=== PATIENT | female | born 1935 | race Caucasian/White ===

== ENCOUNTER → 2017-08-09 | Outpatient (CLI) | payer OTHER, MEDICARE ==
[~2017-08-09] MED LIST: IMT100 PO; INDSR80 PO; MECL1TAB42 PO; OMEP40CA41 PO; ZCR80 PO
--- NOTE | 2017-08-09 15:29 | MAMMOGRAPHY REPORT ---
BILATERAL DIGITAL SCREENING MAMMOGRAM WITH CAD: 08/09/2017 CLINICAL HISTORY: Routine screening. Patient has no complaints. TECHNIQUE: Bilateral CC and MLO views were obtained. Current study was also evaluated with a Compute r Aided Detection (CAD) system. COMPARISON: Comparison is made to exams dated: 08/05/2016 mammogram, 08/04/2015 mammogram, 07/30/2013 m ammogram, 07/18/2012 mammogram, 07/06/2011 mammogram, and 06/29/2010 mammogram - [facility] enter. BREAST COMPOSITION: The tissue of both breasts is almost entirely fatty. FINDINGS: There is evidence of prior surgery in the left breast. Benign-appearing rodlike and coarse calcifications bilaterally. No new suspicious mass, architectural distortion or cluster of microcal cifications is seen. IMPRESSION: ACR BI-RADS CATEGORY 1: NEGATIVE There is no mammographic evidence of malignancy. A 1 year screening mammogram is recommended. The pa tient will receive written notification of the results. Approximately 10% of breast cancers are not detected with mammography. A negative mammographic report should not delay biopsy if a clinically suggestive mass is present. Perla Veloz M.D. ay/:08/09/2017 15:17:22 [employer]: Alisha Olivas RT(R)(M), [facility] letter sent: Normal 1/2 BI-RADS Code: ACR BI-RADS Category 1: Negative
== END | disposition home or self-care (01) ==
LOC: C.MAMM 10:57
PROVIDERS: ATTEND Obstetrics & Gynecology
DX: Z12.31 Encounter for screening mammogram for malignant neoplasm of breast (principal)

== ENCOUNTER 2017-10-08 20:59 | Emergency (ER) | payer OTHER, MEDICARE ==
[~2017-10-08] VITALS: Ht 154.9 cm; Wt 57.5 kg
[2017-10-08 21:08] VITALS: Ht 154.9 cm; Wt 57.5 kg
--- NOTE | 2017-10-08 21:33 | EMERGENCY ROOM VISIT NOTE ---
History Report prepared by Octavio: Dante Meade Under the Supervision of: Dr. Lurdes Funes D.O. First contact with patient: 21:13 Chief Complaint: ABDOMINAL PAIN Stated Complaint: ABD PAIN History of Present Illness The patient is an 82 year old female who presents to the Emergency Room with complaints of constant epigastric abdominal pain since this afternoon [employer]. She also complains of back pain. She feels as though she is having an adverse reaction to Mucinex Sinus, which she has been taking for her laryngitis. She notes taking two doses last night and one dose this morning. She notes taking a different type of Mucinex two days ago that focused more on rhinorrhea. She denies any similar symptoms in the past. She notes a persistent cough with pain related to her laryngitis. She denies shortness of breath, nausea, vomiting, diarrhea, constipation, chills, fevers, leg pain or swelling. She rates her pain a 7/10 in severity. She denies any history of abdominal surgeries. She has a history of GERD and notes that she has eaten, but not as usual. she has eaten but not as much as usual Has a his of GERD Source of History: patient Onset: afternoon [employer] Position: abdomen (epigastrium) Symptom Intensity: 7/10 Timing: constant Associated Symptoms: + cough (with pain related to her laryngitis), + abdominal pain, + back pain, No fevers, No chills, No SOB, No nausea, No vomiting, No diarrhea (denies constipation) Note: Denies leg pain or swelling. Review of Systems See HPI for pertinent positives & negatives. A total of 10 systems reviewed and were otherwise negative. Past Medical & Surgical Medical Problems: (1) Gastroparesis (2) Migraine headache (3) Stomach ulcer Family History No pertinent family history obtained. Social History Smoking Status: Never Smoker Alcohol Use: none Drug Use: none Marital Status: Occupation Status: unemployed Current/Historical Medications Scheduled Omeprazole (Prilosec), 40 MG PO DAILY Propranolol HCl (Propranolol HCl ER), 80 MG PO DAILY Simvastatin (Simvastatin), 80 MG PO Q2D Scheduled PRN Sumatriptan Succinate (Imitrex), 100 MG PO UD PRN for Migraine Allergies Coded Allergies: Acetaminophen (Verified Allergy, Mild, 02/07/15) Propoxyphene (Verified Allergy, Mild, 10/08/17) Erythromycin (Verified Allergy, Unknown, 10/08/17) Metronidazole (Verified Allergy, Unknown, ?, 10/08/17) Penicillins (Verified Allergy, Unknown, 10/08/17) Sulfamethoxazole w/Trimethoprim (Verified Allergy, Unknown, RASH, 10/08/17) Codeine (Verified Adverse Reaction, Unknown, SICK TO STOMACH, 10/08/17) Fentanyl (Verified Adverse Reaction, Unknown, SEVERE N&V;DIZZY, 10/08/17) Quinolones (Verified Adverse Reaction, Unknown, N&V, 10/08/17) Physical Exam Vital Signs Date Time Temp Pulse Resp B/P (MAP) Pulse Ox O2 Delivery O2 Flow Rate FiO2 10/08/17 23:08 36.6 58 18 150/89 98 Room Air 10/08/17 21:32 56 10/08/17 21:08 36.4 62 18 193/97 97 Room Air Physical Exam GENERAL: The patient has laryngitis. HEENT: Head - normocephalic and atraumatic Pupils are equal, round, and reactive to light. Extraocular eye muscles are intact, and sclera are anicteric. Nose - moist nasal mucosa without discharge. Mouth - moist buccal mucosa. Oropharynx is nonerythematous and there is no tonsillar exudate or edema noted. Neck: Supple; no JVD, nuchal rigidity, cervical lymphadenopathy. Heart: Regular rate and rhythm. There is a normal S1 and S2 with no murmurs, clicks, or gallops appreciated. Lungs: Clear to auscultation bilaterally with no wheezes, rales, or rhonchi. Abdomen: Soft, nondistended, with good bowel sounds. Epigastric pain with palpation. There are no palpable pulsatile masses or hepatosplenomegaly. There is no guarding, rigidity, or rebound noted. Extremities: No evidence of cyanosis, clubbing, or edema. There are easily palpable peripheral pulses. Skin: warm and dry with good turgor and no rashes. Medical Decision & Procedures Laboratory Results 10/08/17 21:32 Red Blood Count 4.65, Mean Corpuscular Volume 91.6, Mean Corpuscular Hemoglobin 30.3, Mean Corpuscular Hemoglobin Concent 33.1, Mean Platelet Volume 10.0, Neutrophils (%) (Auto) 54.7, Lymphocytes (%) (Auto) 32.6, Monocytes (%) (Auto) 6.9, Eosinophils (%) (Auto) 4.6, Basophils (%) (Auto) 0.6, Neutrophils # (Auto) 4.48, Lymphocytes # (Auto) 2.68, Monocytes # (Auto) 0.57, Eosinophils # (Auto) 0.38, Basophils # (Auto) 0.05 10/08/17 21:32 Test 10/08/17 21:32 White Blood Count 8.21 K/uL (4.8-10.8) Red Blood Count 4.65 M/uL (4.2-5.4) Hemoglobin 14.1 g/dL (12.0-16.0) Hematocrit 42.6 % (37-47) Mean Corpuscular Volume 91.6 fL (80-100) Mean Corpuscular Hemoglobin 30.3 pg (25-34) Mean Corpuscular Hemoglobin Concent 33.1 g/dl (32-36) Platelet Count 251 K/uL (130-400) Mean Platelet Volume 10.0 fL (7.4-10.4) Neutrophils (%) (Auto) 54.7 % Lymphocytes (%) (Auto) 32.6 % Monocytes (%) (Auto) 6.9 % Eosinophils (%) (Auto) 4.6 % Basophils (%) (Auto) 0.6 % Neutrophils # (Auto) 4.48 K/uL (1.4-6.5) Lymphocytes # (Auto) 2.68 K/uL (1.2-3.4) Monocytes # (Auto) 0.57 K/uL (0.11-0.59) Eosinophils # (Auto) 0.38 K/uL (0-0.5) Basophils # (Auto) 0.05 K/uL (0-0.2) RDW Standard Deviation 44.0 fL (36.4-46.3) RDW Coefficient of Variation 13.2 % (11.5-14.5) Immature Granulocyte % (Auto) 0.6 % Immature Granulocyte # (Auto) 0.05 K/uL (0.00-0.02) Anion Gap 8.0 mmol/L (3-11) Est Creatinine Clear Calc Drug Dose 34.3 ml/min Estimated GFR () 57.7 Estimated GFR (Non- 49.8 BUN/Creatinine Ratio 21.2 (10-20) Calcium Level 9.1 mg/dl (8.5-10.1) Total Bilirubin 0.3 mg/dl (0.2-1) Direct Bilirubin 0.1 mg/dl (0-0.2) Aspartate Amino Transf (AST/SGOT) 30 U/L (15-37) Alanine Aminotransferase (ALT/SGPT) 42 U/L (12-78) Alkaline Phosphatase 75 U/L (45-117) Total Creatine Kinase 60 U/L (26-192) Creatine Kinase MB 0.8 ng/ml (0.5-3.6) Creatine Kinase MB Ratio 1.3 (0-3.0) Troponin I < 0.015 ng/ml (0-0.045) Total Protein 7.5 gm/dl (6.4-8.2) Albumin 3.9 gm/dl (3.4-5.0) Lipase 222 U/L (73-393) Laboratory results per my review. Medications Administered Medications (Trade) Dose Ordered Sig/Marc Route Start Time Stop Time Status Last Admin Dose Admin Sodium Chloride 500 ml @ 999 mls/hr Q31M STAT IV 10/08/17 22:30 10/08/17 23:00 DC 10/08/17 22:44 999 MLS/HR Procedure Ordered NSS 500 IV ECG Indication: abdominal pain Rate (beats per minute): 59 Rhythm: sinus bradycardia Findings: no acute ischemic change, no ectopy ED Course 3: Patient was evaluated in room A10. A complete history and physical examination was performed. IV lock was established. Labs were drawn as above. A twelve-lead EKG was obtained as described above. 2226: I reassessed the patient at this time. She notes her epigastric pain has dissipated. She is feeling better and resting comfortably. 2230: Laboratory studies showed some evidence of dehydration. I Ordered NSS 500 mL @ 999 mls/hr IV. The patient believes that her epigastric pain secondary to the Mucinex that she is taking because her symptoms seem to occur after taking this medication. 2255: I reassessed the patient at this time. She is feeling better and resting comfortably. I discussed the results and treatment plan with the patient. I answered all pertaining questions that she had. She expressed understanding and verbalized agreement. The patient will be discharged home. Medical Decision The patient is a 82 year old female who presents to the ED with abdominal pain. Differential diagnosis includes ACS, pancreatitis, gastritis, GERD, and medication side effects. Lab results show: WBC normal; stable H&H; Lipase normal; LFTS normal; Renal function normal; Glucose 125; Cardiac enzymes negative. The patient presents with epigastric abdominal pain that seems to occur after she takes Mucinex. There is no evidence of pancreatitis or cholecystitis. Cardiac enzymes and EKG were unremarkable. I've encouraged the patient is take plenty of clear liquids and follow-up with her PCP if the epigastric pain persists. Medication Reconcilliation Current Medication List: was personally reviewed by me Blood Pressure Screening Patient's blood pressure: Elevated blood pressure Blood pressure disposition: Elevated BP felt to be situational Impression Primary Impression: Epigastric pain Scribe Attestation The scribe's documentation has been prepared under my direction and personally reviewed by me in its entirety. I confirm that the note above accurately reflects all work, treatment, procedures, and medical decision making performed by me. Departure Information Dispostion Home / Self-Care Referrals Rufino Sorenson D.O. (PCP) Forms HOME CARE DOCUMENTATION FORM, IMPORTANT VISIT INFORMATION Patient Instructions ED Epigastric Pain RAYMUNDO, My [facility] Additional Instructions Rest. take a bland diet. Avoid taking any more mucinex. Return to the ER if symptoms worsen.
[2017-10-08 21:45] LABS: BASO % 0.6 %; BASO ABS # 0.05 K/uL (0-0.2); COMPLETE YES; EOS % 4.6 %; HEMATOCRIT 42.6 % (37-47); IG% 0.6 %; LYMPH % 32.6 %; LYMPH ABS # 2.68 K/uL (1.2-3.4); MEAN CELL VOLUME 91.6 fL (80-100); MEAN CORPUSCULAR HEMOGLOBIN 30.3 pg (25-34); MEAN CORPUSCULAR HGB CONC 33.1 g/dl (32-36); MONO % 6.9 %; NEUT % 54.7 %; PLATELET COUNT 251 K/uL (130-400); RED BLOOD COUNT 4.65 M/uL (4.2-5.4); WHITE BLOOD COUNT 8.21 K/uL (4.8-10.8)
[2017-10-08 22:08] LABS: ALT/SGPT 42 U/L (12-78); BLOOD UREA NITROGEN 22 mg/dl (7-18); BUN/CREATININE RATIO 21.2 (10-20); CALCIUM 9.1 mg/dl (8.5-10.1); CARBON DIOXIDE 27 mmol/L (21-32); CHLORIDE 101 mmol/L (98-107); CREATININE 1.05 mg/dl (0.60-1.20); GLUCOSE 125 mg/dl (70-99); SODIUM 136 mmol/L (136-145)
[2017-10-08 22:14] LABS: ALKALINE PHOSPHATASE 75 U/L (45-117); AST/SGOT 30 U/L (15-37); CKMB/CK RATIO 1.3 (0-3.0)
[2017-10-08] MEDS ORDERED: SODIUM CHLORIDE 0.9% 500ML 500 ML IV STA (22:30)
[2017-10-08 23:08] VITALS: BP 150/89; PULSE 58; TEMP 36.6; O2SAT 98
== END 2017-10-08 23:09 | disposition home or self-care (01) ==
LOC: C.EDB 21:00 → C.EDA 23:09
DX: R10.13 Epigastric pain (principal); K21.9 Gastro-esophageal reflux disease without esophagitis; K31.84 Gastroparesis; G43.909 Migraine, unspecified, not intractable, without status migrainosus; Z87.11 Personal history of peptic ulcer disease

== ENCOUNTER 2019-03-01 04:12 | Inpatient (IN) ==
[2019-03-01] MEDS ORDERED: SODIUM CHLORIDE 0.9% 1000ML 500 ML IV ONE ×2 (04:22→05:11)
[2019-03-01] MEDS ORDERED: MoRPHine SULFATE 10 MG/ML CARP/VIAL IV STA ×2 (04:25→05:48)
[2019-03-01] MEDS ORDERED: ONDANSETRON INJ 2 MG/ML 2 ML VIAL IV STA (04:26)
--- NOTE | 2019-03-01 04:30 | Emergency Department Note ---
ED Provider Note Name: Alison Xiong Age: 84F Arrives Via: EMS Informant: PT CC: Martha-umbilical pain HPI: 84 female arrives for evaluation of periumbilical pain. Patient with endoscopy yesterday and notes biopsy done. She started having liquid stool in the evening and noted some blood in it. Throughout night bloody liquid yellow stool increasing and at times loosing her control of bowels. As evening went on she started developing martha-umbilical pain which then started to radiated to bilateral lower abdomen. Associated nausea. No fevers, chills, syncope, cp, sob, back pain, urinary symptoms, leg swelling, rashes nor other symptoms. She notes history diverticulitis though this is much different than that. Movement makes pain worse, rest makes better. Used liquid medication without improvement and can't remember what it was. No falls nor trauma. Patient on no blood thinners. ROS: See above HPI for pertinent positives & negatives. A total of 10 systems reviewed and were otherwise negative. Past Medical History: GERD, HTN, DLP, Migraines, Gastroparesis Past Surgical History: None Family History: Sister with GB disease, Brothers and sister with CAD Social History: Non smoker, lives alone, , no etoh/drug use, retired Home Medications: Prilosec, Propranolol, Simvastatin, Imitrex Allergies Acetaminophen, Propxyphen, bactrim, erythromycin, metronidazole, penicillins, codeine, fentanyl, quinolones Physical: Vitals: BP 170/96, P 55, R 14, T 36.6, O2 [id number] Exam: GENERAL: Patient is uncomfortable appearing and in moderate distress. EYES: No scleral icterus, unremarkable pupils. ENT: Mucous membranes moist, no nasal congestion. NECK: No masses appreciated, no meningismus, trachea is midline. RESPIRATORY: No dyspnea. Clear to auscultation and equal bilaterally. No wheeze, no rhonchi. CARDIOVASCULAR: Regular rate and rhythm. No murmurs, rubs, gallops appreciated. GASTROINTESTINAL: Vague diffuse TTP, without no peritonitis. Abdomen soft. Bowel sounds positive. No masses appreciated. Rectal: Normal perirectal area, normal tone, yellow bloody mucus stool. BACK: No midline tenderness, no CVA tenderness EXTREMITIES: Normal motion all extremities, no cyanosis, no edema. NEUROLOGIC: Alert and oriented, no acute motor or sensory deficits, no focal weakness, cranial nerves grossly intact. SKIN: No rash, no jaundice, no diaphoresis. ED Course: Prior Medical Record, Triage/Nursing Notes, Medications, Allergies reviewed by Me Vital Signs: reviewed and remarkable for HTN Labs: Reviewed and remarkable for mild WBC elevation Interventions: Saline Lock, NSS bolus 500ml IV x 2, Morphine 6mg IV, Zofran 4mg IV, Pepcid 20mg IV Imaging: X ray results are stated below per my interpretation: Chest: 1 view: No infiltrate, no effusion, normal cardiac border. No Free air under diaphram appreciated. KUB: 1 view: Nonspecific bowel gas without clear evidence of obstruction/volvulus. EKG: Per My interp: Indication: Left lateral chest pain: Sinus michael 51 bpm without ectopy nor ischemia, similar to previous Consults: None Reassessments/Times: Multiple, pain improving though still uncomfortable Blood pressure: Elevated - Referred to PCP - Scotts to be Situation. Disposition: Differentials: Gastroenteritis, GI Bleed, Colitis, Diverticulitis, Pancreatitis, Aortic Dissection, Obstruction, Intussusception, amongst other pathologies. Medical Decision Making: Pleasant 84 yr old female uncomfortable with lower GI bleeding. History of diverticulitis though CT without evidence of this, nor evidence of ischemic bowel. She is not septic and does not at this time require transfusion. Hospitalist consulted for further management given GI bleed and abdominal pain/discomfort. No fevers and with CT findings wnl will hold off on empiric abx at this time. Likely lower GI source though will given Pepcid for upper coverage. Impression: Acute Lower GI Bleeding Iván Davila MD Impression & Plan Acute lower GI bleeding Past Med/Surg History Medical History Diverticula of colon Social History Preferred Language: Niuean Communication Ability: Effective Beliefs That Will Affect Care: None Current Living Situation: Alone Other Information That Helps Us Care for You: No Feels Safe at Home: Yes Safety Concerns: Feels Safe At This Time Smoking Status: Never smoker Hx Alcohol Use: No Hx Substance Use: No Results & Data Vital Signs Vital Signs - 24 hr 03/01/19 04:15 Temperature 36.6 C Temperature Source Oral Sepsis Recent Fever Within 48 Hours No Sepsis New/Unexplained Change in Mental Status No Sepsis Action Taken by Nursing No Action Required Pulse Rate 55 L Respiratory Rate 14 Blood Pressure 170/96 H Blood Pressure Mean 120 Pulse Oximetry 97 Oxygen Delivery Method Room Air Laboratory Data Result diagrams: 03/04/19 06:19 03/04/19 06:19 Lab Results 03/01/19 03/01/19 03/01/19 Range/Units 04:33 04:33 04:33 WBC 11.23 H (4.8-10.8) K/uL RBC 4.53 (4.2-5.4) M/uL Hgb 14.2 (12.0-16.0) g/dL Hct 41.6 (37-47) % MCV 91.8 (80-100) fL MCH 31.3 (25-34) pg MCHC 34.1 (32-36) g/dL RDW Std Deviation 44.0 (36.4-46.3) fL RDW Coeff of Ling 13.1 (11.5-14.5) % Plt Count 205 (130-400) K/uL MPV 10.0 (7.4-10.4) fL Immature Gran % (Auto) 0.4 % Neut % (Auto) 78.5 % Lymph % (Auto) 14.8 % Davison % (Auto) 5.2 % Eos % (Auto) 0.8 % Baso % (Auto) 0.3 % Immature Gran # (Auto) 0.05 H (0.00-0.02) K/uL Neut # (Auto) 8.82 H (1.4-6.5) K/uL Lymph # (Auto) 1.66 (1.2-3.4) K/uL Davison # (Auto) 0.58 (0.11-0.59) K/uL Eos # (Auto) 0.09 (0-0.5) K/uL Baso # (Auto) 0.03 (0-0.2) K/uL Sodium 136 (136-145) mmol/L Potassium 4.1 (3.5-5.1) mmol/L Chloride 104 (98-107) mmol/L Carbon Dioxide 27 (21-32) mmol/L Anion Gap 5.0 (3-11) BUN 23 H (7-18) mg/dl Creatinine 0.87 (0.6-1.2) mg/dl Est Cr Clr Drug Dosing 37.0 ml/min Est GFR ( Amer) 71.4 Est GFR (Non-Af Amer) 61.6 BUN/Creatinine Ratio 26.0 H (10-20) Glucose 134 H (70-99) mg/dl Estimat Average Glucose mg/dl Hemoglobin A1c (4.5-5.6) % Lactate 1.6 (0.4-2.0) mmol/L Calcium 9.0 (8.5-10.1) mg/dl Magnesium 2.2 (1.8-2.4) mg/dl Total Bilirubin 0.5 (0.2-1) mg/dl Direct Bilirubin 0.1 (0-0.2) mg/dl AST 20 (15-37) U/L ALT 27 (12-78) U/L Alkaline Phosphatase 43 L (45-117) U/L Troponin I < 0.015 (0-0.045) ng/ml C-Reactive Protein < 0.29 (0-0.29) mg/dl Total Protein 7.3 (6.4-8.2) gm/dl Albumin 4.0 (3.4-5.0) gm/dl Lipase 134 (73-393) U/L TSH 3.250 (0.300-4.500) uIu/ml Urine Color Urine Appearance (Clear) Urine pH (4.5-7.5) Ur Specific Pear[place]ossom (1.000-1.030) Urine Protein (Negative) Urine Glucose (UA) (Negative) Urine Ketones (Negative) Urine Blood (Negative) Urine Nitrite (Negative) Urine Bilirubin (Negative) Urine Urobilinogen (Negative) Ur Leukocyte Esterase (Negative) Urine WBC (Auto) (0-5) /hpf Urine RBC (Auto) (0-4) /hpf U Hyaline Cast (Auto) (0-5) /lpf U Epithel Cells (Auto) (0-5) /lpf Urine Bacteria (Auto) (Negative) Stl C. diff Tox B Gene (Neg) Blood Type Antibody Screen 03/01/19 03/01/19 03/01/19 Range/Units 04:33 05:06 08:13 WBC (4.8-10.8) K/uL RBC (4.2-5.4) M/uL Hgb 13.4 (12.0-16.0) g/dL Hct 39.9 (37-47) % MCV (80-100) fL MCH (25-34) pg MCHC (32-36) g/dL RDW Std Deviation (36.4-46.3) fL RDW Coeff of Ling (11.5-14.5) % Plt Count (130-400) K/uL MPV (7.4-10.4) fL Immature Gran % (Auto) % Neut % (Auto) % Lymph % (Auto) % Davison % (Auto) % Eos % (Auto) % Baso % (Auto) % Immature Gran # (Auto) (0.00-0.02) K/uL Neut # (Auto) (1.4-6.5) K/uL Lymph # (Auto) (1.2-3.4) K/uL Davison # (Auto) (0.11-0.59) K/uL Eos # (Auto) (0-0.5) K/uL Baso # (Auto) (0-0.2) K/uL Sodium (136-145) mmol/L Potassium (3.5-5.1) mmol/L Chloride (98-107) mmol/L Carbon Dioxide (21-32) mmol/L Anion Gap (3-11) BUN (7-18) mg/dl Creatinine (0.6-1.2) mg/dl Est Cr Clr Drug Dosing ml/min Est GFR ( Amer) Est GFR (Non-Af Amer) BUN/Creatinine Ratio (10-20) Glucose (70-99) mg/dl Estimat Average Glucose 126 mg/dl Hemoglobin A1c 6.0 H (4.5-5.6) % Lactate (0.4-2.0) mmol/L Calcium (8.5-10.1) mg/dl Magnesium (1.8-2.4) mg/dl Total Bilirubin (0.2-1) mg/dl Direct Bilirubin (0-0.2) mg/dl AST (15-37) U/L ALT (12-78) U/L Alkaline Phosphatase (45-117) U/L Troponin I (0-0.045) ng/ml C-Reactive Protein (0-0.29) mg/dl Total Protein (6.4-8.2) gm/dl Albumin (3.4-5.0) gm/dl Lipase (73-393) U/L TSH (0.300-4.500) uIu/ml Urine Color Dark Yellow Urine Appearance Cloudy H (Clear) Urine pH 6.5 (4.5-7.5) Ur Specific [place] 1.021 (1.000-1.030) Urine Protein Negative (Negative) Urine Glucose (UA) Negative (Negative) Urine Ketones 1+ H (Negative) Urine Blood 1+ H (Negative) Urine Nitrite Negative (Negative) Urine Bilirubin Negative (Negative) Urine Urobilinogen Negative (Negative) Ur Leukocyte Esterase Trace H (Negative) Urine WBC (Auto) 1-5 (0-5) /hpf Urine RBC (Auto) 5-10 H (0-4) /hpf U Hyaline Cast (Auto) 1-5 (0-5) /lpf U Epithel Cells (Auto) 10-20 H (0-5) /lpf Urine Bacteria (Auto) Negative (Negative) Stl C. diff Tox B Gene (Neg) Blood Type Antibody Screen 03/01/19 03/01/19 03/01/19 Range/Units 08:13 10:38 11:50 WBC (4.8-10.8) K/uL RBC (4.2-5.4) M/uL Hgb 14.3 (12.0-16.0) g/dL Hct 41.7 (37-47) % MCV (80-100) fL MCH (25-34) pg MCHC (32-36) g/dL RDW Std Deviation (36.4-46.3) fL RDW Coeff of Ling (11.5-14.5) % Plt Count (130-400) K/uL MPV (7.4-10.4) fL Immature Gran % (Auto) % Neut % (Auto) % Lymph % (Auto) % Davison % (Auto) % Eos % (Auto) % Baso % (Auto) % Immature Gran # (Auto) (0.00-0.02) K/uL Neut # (Auto) (1.4-6.5) K/uL Lymph # (Auto) (1.2-3.4) K/uL Davison # (Auto) (0.11-0.59) K/uL Eos # (Auto) (0-0.5) K/uL Baso # (Auto) (0-0.2) K/uL Sodium (136-145) mmol/L Potassium (3.5-5.1) mmol/L Chloride (98-107) mmol/L Carbon Dioxide (21-32) mmol/L Anion Gap (3-11) BUN (7-18) mg/dl Creatinine (0.6-1.2) mg/dl Est Cr Clr Drug Dosing ml/min Est GFR ( Amer) Est GFR (Non-Af Amer) BUN/Creatinine Ratio (10-20) Glucose (70-99) mg/dl Estimat Average Glucose mg/dl Hemoglobin A1c (4.5-5.6) % Lactate (0.4-2.0) mmol/L Calcium (8.5-10.1) mg/dl Magnesium (1.8-2.4) mg/dl Total Bilirubin (0.2-1) mg/dl Direct Bilirubin (0-0.2) mg/dl AST (15-37) U/L ALT (12-78) U/L Alkaline Phosphatase (45-117) U/L Troponin I (0-0.045) ng/ml C-Reactive Protein (0-0.29) mg/dl Total Protein (6.4-8.2) gm/dl Albumin (3.4-5.0) gm/dl Lipase (73-393) U/L TSH (0.300-4.500) uIu/ml Urine Color Urine Appearance (Clear) Urine pH (4.5-7.5) Ur Specific [place] (1.000-1.030) Urine Protein (Negative) Urine Glucose (UA) (Negative) Urine Ketones (Negative) Urine Blood (Negative) Urine Nitrite (Negative) Urine Bilirubin (Negative) Urine Urobilinogen (Negative) Ur Leukocyte Esterase (Negative) Urine WBC (Auto) (0-5) /hpf Urine RBC (Auto) (0-4) /hpf U Hyaline Cast (Auto) (0-5) /lpf U Epithel Cells (Auto) (0-5) /lpf Urine Bacteria (Auto) (Negative) Stl C. diff Tox B Gene Negative Cdiff Gene (Neg) Blood Type O Positive Antibody Screen NEGATIVE 03/01/19 03/02/19 03/02/19 Range/Units 18:57 06:45 06:45 WBC 6.71 (4.8-10.8) K/uL RBC 4.33 (4.2-5.4) M/uL Hgb 14.0 13.3 (12.0-16.0) g/dL Hct 41.2 39.3 (37-47) % MCV 90.8 (80-100) fL MCH 30.7 (25-34) pg MCHC 33.8 (32-36) g/dL RDW Std Deviation 43.8 (36.4-46.3) fL RDW Coeff of Ling 13.2 (11.5-14.5) % Plt Count 174 (130-400) K/uL MPV 10.0 (7.4-10.4) fL Immature Gran % (Auto) % Neut % (Auto) % Lymph % (Auto) % Davison % (Auto) % Eos % (Auto) % Baso % (Auto) % Immature Gran # (Auto) (0.00-0.02) K/uL Neut # (Auto) (1.4-6.5) K/uL Lymph # (Auto) (1.2-3.4) K/uL Davison # (Auto) (0.11-0.59) K/uL Eos # (Auto) (0-0.5) K/uL Baso # (Auto) (0-0.2) K/uL Sodium 136 (136-145) mmol/L Potassium 3.7 (3.5-5.1) mmol/L Chloride 104 (98-107) mmol/L Carbon Dioxide 28 (21-32) mmol/L Anion Gap 4.0 (3-11) BUN 20 H (7-18) mg/dl Creatinine 0.92 (0.6-1.2) mg/dl Est Cr Clr Drug Dosing 35.0 ml/min Est GFR ( Amer) 66.7 Est GFR (Non-Af Amer) 57.6 BUN/Creatinine Ratio 21.6 H (10-20) Glucose 107 H (70-99) mg/dl Estimat Average Glucose mg/dl Hemoglobin A1c (4.5-5.6) % Lactate (0.4-2.0) mmol/L Calcium 8.1 L (8.5-10.1) mg/dl Magnesium (1.8-2.4) mg/dl Total Bilirubin (0.2-1) mg/dl Direct Bilirubin (0-0.2) mg/dl AST (15-37) U/L ALT (12-78) U/L Alkaline Phosphatase (45-117) U/L Troponin I (0-0.045) ng/ml C-Reactive Protein (0-0.29) mg/dl Total Protein (6.4-8.2) gm/dl Albumin (3.4-5.0) gm/dl Lipase (73-393) U/L TSH (0.300-4.500) uIu/ml Urine Color Urine Appearance (Clear) Urine pH (4.5-7.5) Ur Specific [place] (1.000-1.030) Urine Protein (Negative) Urine Glucose (UA) (Negative) Urine Ketones (Negative) Urine Blood (Negative) Urine Nitrite (Negative) Urine Bilirubin (Negative) Urine Urobilinogen (Negative) Ur Leukocyte Esterase (Negative) Urine WBC (Auto) (0-5) /hpf Urine RBC (Auto) (0-4) /hpf U Hyaline Cast (Auto) (0-5) /lpf U Epithel Cells (Auto) (0-5) /lpf Urine Bacteria (Auto) (Negative) Stl C. diff Tox B Gene (Neg) Blood Type Antibody Screen 03/03/19 03/03/19 03/04/19 Range/Units 00:10 00:10 06:19 WBC 10.09 6.70 (4.8-10.8) K/uL RBC 4.64 4.39 (4.2-5.4) M/uL Hgb 14.3 13.5 (12.0-16.0) g/dL Hct 42.0 40.2 (37-47) % MCV 90.5 91.6 (80-100) fL MCH 30.8 30.8 (25-34) pg MCHC 34.0 33.6 (32-36) g/dL RDW Std Deviation 42.9 44.6 (36.4-46.3) fL RDW Coeff of Ling 13.0 13.3 (11.5-14.5) % Plt Count 213 198 (130-400) K/uL MPV 10.2 9.7 (7.4-10.4) fL Immature Gran % (Auto) 0.5 % Neut % (Auto) 85.4 % Lymph % (Auto) 8.5 % Davison % (Auto) 5.6 % Eos % (Auto) 0.0 % Baso % (Auto) 0.0 % Immature Gran # (Auto) 0.05 H (0.00-0.02) K/uL Neut # (Auto) 8.62 H (1.4-6.5) K/uL Lymph # (Auto) 0.86 L (1.2-3.4) K/uL Davison # (Auto) 0.56 (0.11-0.59) K/uL Eos # (Auto) 0.00 (0-0.5) K/uL Baso # (Auto) 0.00 (0-0.2) K/uL Sodium 136 (136-145) mmol/L Potassium 3.9 (3.5-5.1) mmol/L Chloride 105 (98-107) mmol/L Carbon Dioxide 27 (21-32) mmol/L Anion Gap 4.0 (3-11) BUN 24 H (7-18) mg/dl Creatinine 0.74 (0.6-1.2) mg/dl Est Cr Clr Drug Dosing 43.5 ml/min Est GFR ( Amer) 86.8 Est GFR (Non-Af Amer) 74.9 BUN/Creatinine Ratio 32.2 H (10-20) Glucose 135 H (70-99) mg/dl Estimat Average Glucose mg/dl Hemoglobin A1c (4.5-5.6) % Lactate (0.4-2.0) mmol/L Calcium 8.4 L (8.5-10.1) mg/dl Magnesium 2.5 H (1.8-2.4) mg/dl Total Bilirubin (0.2-1) mg/dl Direct Bilirubin (0-0.2) mg/dl AST (15-37) U/L ALT (12-78) U/L Alkaline Phosphatase (45-117) U/L Troponin I (0-0.045) ng/ml C-Reactive Protein (0-0.29) mg/dl Total Protein (6.4-8.2) gm/dl Albumin (3.4-5.0) gm/dl Lipase (73-393) U/L TSH (0.300-4.500) uIu/ml Urine Color Urine Appearance (Clear) Urine pH (4.5-7.5) Ur Specific [place] (1.000-1.030) Urine Protein (Negative) Urine Glucose (UA) (Negative) Urine Ketones (Negative) Urine Blood (Negative) Urine Nitrite (Negative) Urine Bilirubin (Negative) Urine Urobilinogen (Negative) Ur Leukocyte Esterase (Negative) Urine WBC (Auto) (0-5) /hpf Urine RBC (Auto) (0-4) /hpf U Hyaline Cast (Auto) (0-5) /lpf U Epithel Cells (Auto) (0-5) /lpf Urine Bacteria (Auto) (Negative) Stl C. diff Tox B Gene (Neg) Blood Type Antibody Screen 03/04/19 Range/Units 06:19 WBC (4.8-10.8) K/uL RBC (4.2-5.4) M/uL Hgb (12.0-16.0) g/dL Hct (37-47) % MCV (80-100) fL MCH (25-34) pg MCHC (32-36) g/dL RDW Std Deviation (36.4-46.3) fL RDW Coeff of Ling (11.5-14.5) % Plt Count (130-400) K/uL MPV (7.4-10.4) fL Immature Gran % (Auto) % Neut % (Auto) % Lymph % (Auto) % Davison % (Auto) % Eos % (Auto) % Baso % (Auto) % Immature Gran # (Auto) (0.00-0.02) K/uL Neut # (Auto) (1.4-6.5) K/uL Lymph # (Auto) (1.2-3.4) K/uL Davison # (Auto) (0.11-0.59) K/uL Eos # (Auto) (0-0.5) K/uL Baso # (Auto) (0-0.2) K/uL Sodium 137 (136-145) mmol/L Potassium 4.3 (3.5-5.1) mmol/L Chloride 107 (98-107) mmol/L Carbon Dioxide 25 (21-32) mmol/L Anion Gap 5.0 (3-11) BUN 27 H (7-18) mg/dl Creatinine 0.78 (0.6-1.2) mg/dl Est Cr Clr Drug Dosing 41.2 ml/min Est GFR ( Amer) 81.5 Est GFR (Non-Af Amer) 70.3 BUN/Creatinine Ratio 34.9 H (10-20) Glucose 90 (70-99) mg/dl Estimat Average Glucose mg/dl Hemoglobin A1c (4.5-5.6) % Lactate (0.4-2.0) mmol/L Calcium 8.3 L (8.5-10.1) mg/dl Magnesium (1.8-2.4) mg/dl Total Bilirubin (0.2-1) mg/dl Direct Bilirubin (0-0.2) mg/dl AST (15-37) U/L ALT (12-78) U/L Alkaline Phosphatase (45-117) U/L Troponin I (0-0.045) ng/ml C-Reactive Protein (0-0.29) mg/dl Total Protein (6.4-8.2) gm/dl Albumin (3.4-5.0) gm/dl Lipase (73-393) U/L TSH (0.300-4.500) uIu/ml Urine Color Urine Appearance (Clear) Urine pH (4.5-7.5) Ur Specific [place] (1.000-1.030) Urine Protein (Negative) Urine Glucose (UA) (Negative) Urine Ketones (Negative) Urine Blood (Negative) Urine Nitrite (Negative) Urine Bilirubin (Negative) Urine Urobilinogen (Negative) Ur Leukocyte Esterase (Negative) Urine WBC (Auto) (0-5) /hpf Urine RBC (Auto) (0-4) /hpf U Hyaline Cast (Auto) (0-5) /lpf U Epithel Cells (Auto) (0-5) /lpf Urine Bacteria (Auto) (Negative) Stl C. diff Tox B Gene (Neg) Blood Type Antibody Screen Administered Medications Discontinued Medications Acetaminophen (Tylenol) 650 mg PO Q4H PRN PRN Reason: Pain or Fever Stop: 03/31/19 06:43 Last Admin: 03/02/19 08:59 Dose: 650 mg Documented by: [id number] Calcium Carbonate (Tums) 500 mg PO TID PRN PRN Reason: Indigestion Stop: 04/01/19 10:10 Last Admin: 03/02/19 13:59 Dose: 500 mg Documented by: [id number] Dicyclomine HCl (Bentyl) 10 mg PO TID MANUELITO Stop: 04/02/19 13:59 Last Admin: 03/04/19 07:30 Dose: 10 mg Documented by: [id number] Admin: 03/03/19 20:41 Dose: 10 mg Documented by: [id number] Admin: 03/03/19 13:34 Dose: 10 mg Documented by: [id number] Famotidine (Pepcid 20mg Iv Push) 20 mg IV ONE STA Stop: 03/01/19 05:12 Last Admin: 03/01/19 05:13 Dose: 20 mg Documented by: [id number] Sodium Chloride (Nss 1000ml) 500 mls @ 999 mls/hr IV .Q31M ONE Stop: 03/01/19 04:52 Last Infusion: 03/01/19 05:10 Dose: 0 mls/hr Documented by: [id number] Admin: 03/01/19 04:32 Dose: 999 mls/hr Documented by: [id number] Sodium Chloride (Nss 1000ml) 500 mls @ 999 mls/hr IV .Q31M ONE Stop: 03/01/19 05:41 Last Infusion: 03/01/19 05:55 Dose: 0 mls/hr Documented by: [id number] Admin: 03/01/19 05:13 Dose: 999 mls/hr Documented by: [id number] Promethazine HCl 12.5 mg/ (Sodium Chloride) 50.5 mls @ 202 mls/hr IV Q6H PRN PRN Reason: Nausea And Vomiting Stop: 03/31/19 06:43 Last Infusion: 03/02/19 18:32 Dose: 0 mls/hr Documented by: [id number] Admin: 03/02/19 17:42 Dose: 202 mls/hr Documented by: [id number] Ioversol (Optiray 320 100ml) 100 ml IV ONCE PRN PRN Reason: Interaction Checking Stop: 03/05/19 05:42 Last Admin: 03/01/19 05:43 Dose: 93 ml Documented by: [id number] Morphine Sulfate (Morphine Sulfate) 6 mg IV NOW STA Stop: 03/01/19 04:26 Last Admin: 03/01/19 04:31 Dose: 6 mg Documented by: [id number] Morphine Sulfate (Morphine Sulfate) 8 mg IV NOW STA Stop: 03/01/19 05:49 Last Admin: 03/01/19 05:54 Dose: 8 mg Documented by: [id number] Morphine Sulfate (Morphine Sulfate) 1 mg IV NOW STA Stop: 03/02/19 17:19 Last Admin: 03/02/19 17:29 Dose: 1 mg Documented by: [id number] Ondansetron HCl (Zofran) 4 mg IV NOW STA Stop: 03/01/19 04:27 Last Admin: 03/01/19 04:31 Dose: 4 mg Documented by: [id number] Pantoprazole Sodium (Protonix) 40 mg PO DAILY MANUELITO Stop: 03/31/19 08:59 Last Admin: 03/04/19 07:30 Dose: 40 mg Documented by: [id number] Admin: 03/03/19 07:48 Dose: 40 mg Documented by: [id number] Admin: 03/02/19 08:59 Dose: 40 mg Documented by: [id number] Admin: 03/01/19 11:44 Dose: Not Given Documented by: [id number] Potassium Chloride (Klor-Con M20) 40 meq PO NOW STA Stop: 03/02/19 23:34 Last Admin: 03/03/19 00:20 Dose: 40 meq Documented by: [id number] Potassium Chloride (Klor-Con M20) 20 meq PO NOW STA Stop: 03/03/19 02:23 Last Admin: 03/03/19 04:00 Dose: 20 meq Documented by: [id number] Prochlorperazine (Compazine) Confirm Administered Dose 10 mg .ROUTE .STK-MED ONE Stop: 03/01/19 06:27 Last Admin: 03/01/19 06:28 Dose: 5 mg Documented by: [id number] Propranolol HCl (Inderal La) 80 mg PO DAILY [facility] Stop: 03/31/19 08:59 Last Admin: 03/01/19 11:44 Dose: Not Given Documented by: [id number] Simvastatin (Zocor) 80 mg PO Q48H MANUELITO Stop: 03/31/19 20:59 Last Admin: 03/03/19 20:41 Dose: 80 mg Documented by: [id number] Admin: 03/01/19 20:46 Dose: 80 mg Documented by: [id number] Sumatriptan Succinate (Imitrex) 50 mg PO DAILY PRN PRN Reason: Migraine Headache Stop: 03/31/19 17:44 Last Admin: 03/01/19 18:19 Dose: 50 mg Documented by: [id number] Tramadol HCl (Ultram) 25 - 50 mg PO Q4H PRN PRN Reason: Pain Stop: 03/31/19 06:43 Last Admin: 03/02/19 19:51 Dose: 50 mg Documented by: [id number] Admin: 03/02/19 15:51 Dose: 50 mg Documented by: [id number] Admin: 03/01/19 11:05 Dose: 25 mg Documented by: [id number] Discharge Plan Visit Data *Final* Discharge Date/Time: 03/01/19 07:25 Chief Complaint: Abdominal Pain Stated Complaint: ABDOMINAL PAIN ED Provider: Iván Davila Discharge Problem: Acute lower GI bleeding Patient Disposition: Admitted As Inpatient Discharge Instructions Interventions: ED Discharge Assessment Last Done: 03/01/19 07:25
[2019-03-01 04:43] LABS: Basophils # (auto) 0.03 K/uL (0-0.2); Basophils % (auto) 0.3 %; Eosinophils # (auto) 0.09 K/uL (0-0.5); Eosinophils % (auto) 0.8 %; Hematocrit (blood only) 41.6 % (37-47); Hemoglobin 14.2 g/dL (12.0-16.0); Immature Granulocytes # (auto) 0.05 K/uL (0.00-0.02); Immature Granulocytes % (auto) 0.4 %; Lymphocytes # (auto) 1.66 K/uL (1.2-3.4); Lymphocytes % (auto) 14.8 %; Mean Corpuscular Hgb Conc 34.1 g/dL (32-36); Mean Corpuscular Volume 91.8 fL (80-100); Monocytes # (auto) 0.58 K/uL (0.11-0.59); Monocytes % (auto) 5.2 %; Neutrophils # (auto) 8.82 K/uL (1.4-6.5); Neutrophils % (auto) 78.5 %; Platelet Count 205 K/uL (130-400); RDW Coefficient of Variation 13.1 % (11.5-14.5); Red Blood Count 4.53 M/uL (4.2-5.4); White Blood Count 11.23 K/uL (4.8-10.8)
[2019-03-01 05:00] LABS: Alanine Aminotransferase 27 U/L (12-78); Aspartate Aminotransferase 20 U/L (15-37); Bilirubin Direct 0.1 mg/dl (0-0.2); Blood Urea Nitrogen 23 mg/dl (7-18); Carbon Dioxide 27 mmol/L (21-32); Chloride 104 mmol/L (98-107); Est GFR (African American) 71.4; Est GFR (Non-African American) 61.6; Glucose 134 mg/dl (70-99); Potassium 4.1 mmol/L (3.5-5.1); Sodium 136 mmol/L (136-145)
[2019-03-01 05:03] LABS: Alkaline Phosphatase 43 U/L (45-117); Bilirubin,Total 0.5 mg/dl (0.2-1); C Reactive Protein < 0.29 mg/dl (0-0.29); Total Protein 7.3 gm/dl (6.4-8.2)
[2019-03-01] MEDS ORDERED: FAMOTIDINE 20MG/5ML IV PUSH IV STA (05:11)
[2019-03-01 05:15] LABS: Appearance Urine Cloudy (Clear); Bacteria Urine Automated Negative (Negative); Bilirubin Urine Negative (Negative); Blood Urine 1+ (Negative); Color Urine Dark Yellow; Glucose Urine UA Negative (Negative); Ketones Urine 1+ (Negative); Leukocyte Esterase Urine Trace (Negative); Nitrite Urine Negative (Negative); Protein Urine Negative (Negative); Specific Gravity Urine 1.021 (1.000-1.030); Urobilinogen Urine Negative (Negative); pH Urine 6.5 (4.5-7.5)
[2019-03-01] MEDS ORDERED: IOVERSOL 100ml IV PRN (05:43)
[2019-03-01] MEDS ORDERED: PROCHLORPERAZINE 5 MG in SYRINGE 4 ML IV STA (06:22)
--- NOTE | 2019-03-01 06:24 | History & Physical Report ---
Date of Service March 01, 2019 Assessment & Plan (1) Acute lower GI bleeding: Rule out C. 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 difficile Trend H&H, transfuse PRBC if hemoglobin less than 8 (hx PVD) GI consult if stool C. difficile negative and with progressive L GIB Outpatient follow-up surveillance imaging, CT surgery consult for TAA Check hemoglobin A1c DVT prophylaxis. SCDs RE GI bleed Full code History of Present Illness Chief Complaint: Bloody diarrhea Primary Care Provider: Umm Thompson MD History obtained from patient and records. Medical history significant for hypertension, TAA, hyperlipidemia, Raynaud's phenomenon as per records, GERD, gastroparesis as per records, urolithiasis, diverticulosis as per records. Patient seen at the ER last month for uncomplicated diverticulitis status post antibiotic Rx outpatient. Patient underwent outpatient EGD last February 27 for epigastric pain symptoms. 2 mm polyp in the stomach body subsequently removed. Last night patient noted bloody diarrhea symptoms about 5 episodes with hypogastric pain, dry heaving, no fever, no chills. No chest pain, no S OB. Patient admits to dizziness symptoms described as lightheadedness. Medical History as above 2009 colonoscopy showed sigmoid diverticuli. 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 Verified 03/01/19 04:52 Penicillins Allergy Unknown Unknown Verified 03/01/19 04:52 sulfamethoxazole Allergy Unknown RASH Verified 03/01/19 04:52 trimethoprim Allergy Unknown RASH Verified 03/01/19 04:52 codeine AdvReac Unknown SICK TO Verified 03/01/19 04:52 STOMACH fentanyl AdvReac Unknown SEVERE Verified 03/01/19 04:52 N&V;DIZZY Quinolones AdvReac Unknown N&V Verified 03/01/19 04:52 Home Medications Home Medications Medication Instructions Recorded Confirmed Type denosumab [Prolia] 1 dose SUBCUT .TWICE A YEAR 01/14/19 03/01/19 History omeprazole 40 mg PO DAILY 01/14/19 03/01/19 History propranolol 80 mg PO DAILY 01/14/19 03/01/19 History simvastatin 80 mg PO Q OTHER DAY 01/14/19 03/01/19 History sumatriptan succinate 100 mg PO DAILY PRN 01/14/19 03/01/19 History Past Med/Surg History Medical History Diverticula of colon Social History Preferred Language: Chinese Communication Ability: Effective Beliefs That Will Affect Care: None Current Living Situation: Alone Other Information That Helps Us Care for You: No Feels Safe at Home: Yes Safety Concerns: Feels Safe At This Time Smoking Status: Never smoker Hx Alcohol Use: No Hx Substance Use: No Review of Systems Review of Systems: As per HPI, all 10 systems reviewed, all other ROS negative Physical Exam Physical Exam: GENERAL: uncomfortable, no respiratory distress, looks younger for stated age SKIN: Normal color, warm HEENT: Halley palpebral conjunctivae, no ptosis, dry buccal mucosa NECK : Supple, no tenderness CHEST : CTA, no tenderness HEART : Bradycardic, no obvious murmurs ABDOMEN: Some distention, gastric tenderness EXTREMITIES : No LE swelling/tenderness, no other conspicuous deformities noted NEUROLOGIC : Coherent, no facial asymmetry, no other gross focality Results & Data Vital Signs (Past 12 Hours) Vital Signs Temp Pulse Resp BP Pulse Ox 03/01/19 06:01 54 L 17 145/83 H 91 03/01/19 06:00 56 L 18 99 03/01/19 05:48 57 L 19 173/79 H 03/01/19 05:47 54 L 22 03/01/19 05:05 48 L 17 171/83 H 03/01/19 05:04 51 L 17 03/01/19 04:30 47 L 14 03/01/19 04:17 52 L 13 170/96 H 98 03/01/19 04:15 36.6 C 55 L 14 170/96 H 97 Laboratory Results Laboratory Results WBC 11.23 K/uL (4.8-10.8) H 03/01/19 04:33 RBC 4.53 M/uL (4.2-5.4) 03/01/19 04:33 Hgb 14.2 g/dL (12.0-16.0) 03/01/19 04:33 Hct 41.6 % (37-47) 03/01/19 04:33 MCV 91.8 fL (80-100) 03/01/19 04:33 MCH 31.3 pg (25-34) 03/01/19 04:33 MCHC 34.1 g/dL (32-36) 03/01/19 04:33 RDW Std Deviation 44.0 fL (36.4-46.3) 03/01/19 04:33 RDW Coeff of Ling 13.1 % (11.5-14.5) 03/01/19 04:33 Plt Count 205 K/uL (130-400) 03/01/19 04:33 MPV 10.0 fL (7.4-10.4) 03/01/19 04:33 Immature Gran % (Auto) 0.4 % 03/01/19 04:33 Neut % (Auto) 78.5 % 03/01/19 04:33 Lymph % (Auto) 14.8 % 03/01/19 04:33 [place] % (Auto) 5.2 % 03/01/19 04:33 Eos % (Auto) 0.8 % 03/01/19 04:33 Baso % (Auto) 0.3 % 03/01/19 04:33 Immature Gran # (Auto) 0.05 K/uL (0.00-0.02) H 03/01/19 04:33 Neut # (Auto) 8.82 K/uL (1.4-6.5) H 03/01/19 04:33 Lymph # (Auto) 1.66 K/uL (1.2-3.4) 03/01/19 04:33 [place] # (Auto) 0.58 K/uL (0.11-0.59) 03/01/19 04:33 Eos # (Auto) 0.09 K/uL (0-0.5) 03/01/19 04:33 Baso # (Auto) 0.03 K/uL (0-0.2) 03/01/19 04:33 Sodium 136 mmol/L (136-145) 03/01/19 04:33 Potassium 4.1 mmol/L (3.5-5.1) 03/01/19 04:33 Chloride 104 mmol/L (98-107) 03/01/19 04:33 Carbon Dioxide 27 mmol/L (21-32) 03/01/19 04:33 Anion Gap 5.0 (3-11) 03/01/19 04:33 BUN 23 mg/dl (7-18) H 03/01/19 04:33 Creatinine 0.87 mg/dl (0.6-1.2) 03/01/19 04:33 Est Cr Clr Drug Dosing 37.0 ml/min 03/01/19 04:33 Est GFR ( Amer) 71.4 03/01/19 04:33 Est GFR (Non-Af Amer) 61.6 03/01/19 04:33 BUN/Creatinine Ratio 26.0 (10-20) H 03/01/19 04:33 Glucose 134 mg/dl (70-99) H 03/01/19 04:33 Lactate 1.6 mmol/L (0.4-2.0) 03/01/19 04:33 Calcium 9.0 mg/dl (8.5-10.1) 03/01/19 04:33 Total Bilirubin 0.5 mg/dl (0.2-1) 03/01/19 04:33 Direct Bilirubin 0.1 mg/dl (0-0.2) 03/01/19 04:33 AST 20 U/L (15-37) 03/01/19 04:33 ALT 27 U/L (12-78) 03/01/19 04:33 Alkaline Phosphatase 43 U/L (45-117) L 03/01/19 04:33 Troponin I < 0.015 ng/ml (0-0.045) 03/01/19 04:33 C-Reactive Protein < 0.29 mg/dl (0-0.29) 03/01/19 04:33 Total Protein 7.3 gm/dl (6.4-8.2) 03/01/19 04:33 Albumin 4.0 gm/dl (3.4-5.0) 03/01/19 04:33 Lipase 134 U/L (73-393) 03/01/19 04:33 Urine Color Dark Yellow 03/01/19 05:06 Urine Appearance Cloudy (Clear) H 04/25/19 05:06 Urine pH 6.5 (4.5-7.5) 03/01/19 05:06 Ur Specific [place] 1.021 (1.000-1.030) 03/01/19 05:06 Urine Protein Negative (Negative) 03/01/19 05:06 Urine Glucose (UA) Negative (Negative) 03/01/19 05:06 Urine Ketones 1+ (Negative) H 03/01/19 05:06 Urine Blood 1+ (Negative) H 03/01/19 05:06 Urine Nitrite Negative (Negative) 03/01/19 05:06 Urine Bilirubin Negative (Negative) 03/01/19 05:06 Urine Urobilinogen Negative (Negative) 03/01/19 05:06 Ur Leukocyte Esterase Trace (Negative) H 03/01/19 05:06 Urine WBC (Auto) 1-5 /hpf (0-5) 03/01/19 05:06 Urine RBC (Auto) 5-10 /hpf (0-4) H 03/01/19 05:06 U Hyaline Cast (Auto) 1-5 /lpf (0-5) 03/01/19 05:06 U Epithel Cells (Auto) 10-20 /lpf (0-5) H 03/01/19 05:06 Urine Bacteria (Auto) Negative (Negative) 03/01/19 05:[address] abdomen pelvis initial read: Cholelithiasis, no obstruction or definite bowel wall thickening. Chronic diverticulosis without inflammation. EKG as per my interpretation: Rate 50, sinus bradycardia, inferior infarct
[2019-03-01] MEDS ORDERED: PROCHLORPERAZINE 5 MG/ML 2 ML VIAL ONE (06:26)
--- NOTE | 2019-03-01 06:26 | XRay Report ---
XR chest 1V portable HISTORY: 84 years-old Female Upright, recent endoscopy, free air eval concern for possible perforati on with recent endoscopy COMPARISON: KUB and CT abdomen and pelvis studies of same day, chest radiograph 02/27/2009 TECHNIQUE: Portable AP view of the chest FINDINGS: Cardiac silhouette is enlarged. Subsegmental bibasilar opacities suggest probable atelectasis/scarrin g. Mild bronchiectasis about the right middle lobe. No pneumothorax, pleural effusion or overt pulmon tal edema. No pneumoperitoneum identified. The bones of the chest appear grossly intact. Ill-defined opacity is noted about the posterior right sixth rib and scapula interface which may be secondary to composite density artifact IMPRESSION: 1. No evidence of pneumoperitoneum. 2. Mild cardiomegaly without overt pulmonary edema. 3. Ill-defined opacity of the right upper lung adjacent to the posterior right sixth rib may be secon prisca to composite density artifact with underlying lesion or airspace disease considered less likely. The above report was generated using voice recognition software. It may contain grammatical, syntax o r spelling errors. Electronically signed by: Pablito Joseph M.D. 03/01/2019 6:25 AM
--- NOTE | 2019-03-01 06:28 | XRay Report ---
KUB HISTORY: Acute generalized abdominal pain abdominal pain, bloody stool, recent UGI scope COMPARISON: CT abdomen pelvis of same day. FINDINGS: The bowel gas pattern is non-obstructive. There is no organomegaly. No renal calculi. No u reteral calculi. No pneumoperitoneum or pneumatosis. Degenerative changes are seen about the spine, p debbie and hips. No fracture. IMPRESSION: Nonobstructive bowel gas pattern. Electronically signed by: Pablito Joseph M.D. 03/01/2019 6:27 AM
[2019-03-01 06:33] LABS: Magnesium 2.2 mg/dl (1.8-2.4); Troponin I < 0.015 ng/ml (0-0.045)
[2019-03-01] MEDS ORDERED: HYDROmorphone INJ 0.5 MG/0.5 ML SYR IV PRN (06:44)
[2019-03-01] MEDS ORDERED: ACETAMINOPHEN 325 MG TAB PO PRN (06:44)
[2019-03-01] MEDS ORDERED: PROMETHAZINE HCL 12.5 MG in SODIUM CHLORIDE 0.9% 50 ML IV PRN (06:44)
[2019-03-01] MEDS ORDERED: NITROGLYCERIN SL 0.4 MG/TAB TAB SL PRN (06:44)
--- NOTE | 2019-03-01 06:47 | CT Scan Report ---
CT abd pelvis IV con only CLINICAL HISTORY: Periumbilical pain, GI bleed, recent upper GI COMPARISON STUDY: January 14, 2019 TECHNIQUE: The patient was scanned in a dynamic helical fashion during intravenous administration of 93 cc of Optiray 320. A dose lowering technique was utilized adhering to the principles of ALARA. CT DOSE: 258.47 mGy.cm FINDINGS: Lower chest: The heart is enlarged. There are right middle lobe and lingular airspace opacities with mild bronchiectasis similar to the prior study and likely chronic. Liver: The contrast-enhanced liver is normal in size, contour, and attenuation. There is no intrahepa tic biliary ductal dilatation. The hepatic veins and portal veins are patent. Gallbladder: Cholelithiasis Spleen: Top normal in size Pancreas: Unremarkable. Adrenal glands: Unremarkable. Kidneys: 24 mm right renal cyst. There are multiple left renal cysts the largest of which measures 32 mm. Bowel: There are no transition zones to indicate bowel obstruction. There is no evidence of acute venkatesh endicitis. There is colonic diverticulosis. There is mild sigmoid wall thickening likely secondary to peridiverticular muscular hypertrophy. There is no current evidence of acute diverticulitis. There i s apparent lipoma versus fatty enteric contents with a small bowel loop as visualized in image #275/[id number] 21. Peritoneum: There is no intraperitoneal free air or abdominal ascites. Vasculature: The abdominal aorta is normal in course and caliber. Adenopathy: None. Pelvic viscera: The bladder, and pelvic viscera are unremarkable. Skeletal structures: No destructive osseous lesions are seen. IMPRESSION: 1. Cholelithiasis 2. No evidence of bowel obstruction. No evidence of free air 3. Normal appendix 4. Diverticulosis. No current evidence of acute diverticulitis 5. Bilateral renal cysts 6. Small bowel lipoma versus fatty enteric contents Electronically signed by: Roberto Carlos Pena M.D. 03/01/2019 6:46 AM
[2019-03-01 08:40] LABS: Hematocrit (blood only) 39.9 % (37-47); Hemoglobin 13.4 g/dL (12.0-16.0)
[2019-03-01] MEDS ORDERED: PROPRANOLOL HCL LA 80 MG CAPCR PO SCH (09:00)
[2019-03-01 09:02] LABS: Estimated Average Glucose 126 mg/dl
[2019-03-01] MEDS: TRAMADOL HCL 50 MG TABLET PO PRN (11:05)
--- NOTE | 2019-03-01 11:33 | Hospitalist Progress Note ---
Date of Service March 01, 2019 Assessment & Plan (1) Acute lower GI bleeding: DIARRHEA Presented with bloody diarrhea x 5 episodes since yesterday. Today 3 loose, watery BMs with no blood with abd pain Recent EGD 02/27/2019 for epigastric pain- 2 mm polyp in stomach body , removed -H & H stable -CT scan abd-cholelithiasis, no obstruction, free air, diverticulosis, bilateral renal cysts, KUBnegative, chest x-rayno acute findings, ill-defined opacity in right upper lung may be artifact ,C diff -pending BRADYCARDIA HR in 40-50s, lowest 48. Reviewed Tele strips- Had a burst of HR in 140s- SVT and <2 sec pauses= Blocked PAC Could contribute to dizziness. If persists, will consider cardiology consult Hold propranolol Monitor on telemetry TAA -4.1 cm as of outpatient Cardiology note July 2011 -CT surgery was consulted on admission HYPERLIPIDEMIA -Continue with statin HYPERGLYCEMIA HBA1C - 6.0 Life style modifications DVT prophylaxis. SCDs RE GI bleed Full code Disposition Medical mx in progress Monitor Subjective Patient came in with complaint of bloody diarrhea, 5 episodes with lower abdominal pain, nausea. Did have 3 episodes of watery diarrhea since AM, but no blood per RN Continues to c/o pain all over lower abdomen On and off dizziness not associated with position. No fever, chills Physical Exam Constitutional: WD/WN, vitals as above Respiratory: normal respiratory effort, lungs clear to auscultation Cardiovascular: RRR, no murmur, no edema Gastrointestinal (Abdomen): Inspection/Auscultation: normal bowel sounds Percussion/Palpation: abdomen soft; abdomen nontender, no guarding and abdomen not rigid Results & Data Vital Signs (Past 12 Hours) Vital Signs Temp Pulse Pulse Resp BP BP Pulse Ox 03/01/19 07:58 36.9 C 52 L 18 158/78 H 93 03/01/19 06:01 54 L 17 145/83 H 91 03/01/19 06:00 56 L 18 99 03/01/19 05:48 57 L 19 173/79 H 03/01/19 05:47 54 L 22 03/01/19 05:05 48 L 17 171/83 H 03/01/19 05:04 51 L 17 03/01/19 04:30 47 L 14 03/01/19 04:17 52 L 13 170/96 H 98 03/01/19 04:15 36.6 C 55 L 14 170/96 H 97
[2019-03-01] MEDS: PANTOprazole 40 MG TAB PO SCH (11:44)
[2019-03-01 12:01] LABS: Hematocrit (blood only) 41.7 % (37-47); Hemoglobin 14.3 g/dL (12.0-16.0)
[2019-03-01] MEDS ORDERED: OXYCODONE/ACETAMINOPHEN 5mg/325mg TAB PO PRN (12:57)
[2019-03-01] MEDS ORDERED: SUMAtriptan succinate 50 MG TAB PO PRN (17:45)
[2019-03-01 19:10] LABS: Hematocrit (blood only) 41.2 % (37-47)
[2019-03-01] MEDS: SIMVASTATIN 80 MG TAB PO SCH (20:46)
[2019-03-02 07:09] LABS: Hematocrit (blood only) 39.3 % (37-47); Hemoglobin 13.3 g/dL (12.0-16.0); Mean Corpuscular Hgb Conc 33.8 g/dL (32-36); Mean Corpuscular Volume 90.8 fL (80-100); Platelet Count 174 K/uL (130-400); RDW Coefficient of Variation 13.2 % (11.5-14.5); RDW Standard Deviation 43.8 fL (36.4-46.3); Red Blood Count 4.33 M/uL (4.2-5.4); White Blood Count 6.71 K/uL (4.8-10.8)
[2019-03-02 07:36] LABS: BUN Creatinine Ratio 21.6 (10-20); Calcium 8.1 mg/dl (8.5-10.1); Est GFR (African American) 66.7; Est GFR (Non-African American) 57.6; Potassium 3.7 mmol/L (3.5-5.1)
[2019-03-02] MEDS: PANTOprazole 40 MG TAB PO SCH (08:59)
[2019-03-02] MEDS ORDERED: CALCIUM CARBONATE 500 MG CHEWABLE TAB PO PRN (10:11)
--- NOTE | 2019-03-02 10:37 | Hospitalist Progress Note ---
Date of Service March 02, 2019 Assessment & Plan (1) Acute lower GI bleeding: DIARRHEA Presented with bloody diarrhea x 5 episodes prior to admission. None since yesterday evening Diarrhea resolved. Recent EGD 02/27/2019 for epigastric pain- 2 mm polyp in stomach body , removed Colonoscopy 10 years ago. Not recommended for screening any more due to age. -D/D considered: Diverticulosis, C diff ruled out -H & H stable -Upgrade diet to regular diet -CT scan Abd - Cholelithiasis, No obstruction, free air, diverticulosis, bilateral renal cysts, KUBnegative, Chest x-ray No acute findings, ill- defined opacity in right upper lung may be artifact, C diff - Neg, Stool culture was not collected -On protonix daily -Recommend outpatient colonoscopy. BRADYCARDIA HR in 40-50s, lowest 48. [id number] Reviewed Tele strips on 03/01/19- Had a burst of HR in 140s- SVT and <2 sec pauses= Blocked PACs Could contribute to dizziness. Hold propranolol Consulted cardiology today- discussed case with Dr Pelletier. Monitor on telemetry TAA -4.1 cm as of outpatient Cardiology note July 2011 -CT surgery follow up for outpatient recomemmended HYPERLIPIDEMIA -Continue with statin HYPERGLYCEMIA HBA1C - 6.0 Life style modifications DVT prophylaxis. SCDs RE GI bleed Full code Disposition Medical mx in progress Monitor on telemetry Expected discharge home when stable Subjective Patient is feeling better today. Diarrhea has resolved. No blood in stools. Migraine headache has resolved . Does have some burning sensation in her abdomen. Denies any dizziness anymore. Asking for food Physical Exam Constitutional: WD/WN, vitals as above Respiratory: normal respiratory effort, lungs clear to auscultation Cardiovascular: RRR, no murmur, no edema Gastrointestinal (Abdomen): Inspection/Auscultation: normal bowel sounds Percussion/Palpation: abdomen soft; abdomen nontender, no guarding and abdomen not rigid Results & Data Vital Signs (Past 12 Hours) Vital Signs Temp Pulse Pulse Resp BP Pulse Ox 03/02/19 06:59 36.9 C 108 H 20 136/67 94 03/02/19 04:02 36.4 C L 48 L 18 95 03/02/19 00:34 46 L 03/01/19 23:13 36.7 C 46 L 18 106/52 L 93
--- NOTE | 2019-03-02 12:53 | Discharge Summary ---
Date of Service March 02, 2019 Admission HPI Per Admitting Provider History obtained from patient and records. Medical history significant for hypertension, TAA, hyperlipidemia, Raynaud's phenomenon as per records, GERD, gastroparesis as per records, urolithiasis, diverticulosis as per records. Patient seen at the ER last month for uncomplicated diverticulitis status post antibiotic Rx outpatient. Patient underwent outpatient EGD last February 27 for epigastric pain symptoms. 2 mm polyp in the stomach body subsequently removed. Last night patient noted bloody diarrhea symptoms about 5 episodes with hypogastric pain, dry heaving, no fever, no chills. No chest pain, no S OB. Patient admits to dizziness symptoms described as lightheadedness. Medical History as above 2009 colonoscopy showed sigmoid diverticuli. 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 Diarrhea with blood, possible divercular bleed 2. Bradycardia/Blocked PACs SECONDARY DIAGNOSIS ON DISCHARGE 1. Thoracic Aortic Aneursym 4.1 cm 2. Hyperlipidemia Discharge Exam Constitutional: WD/WN, vitals as above Respiratory: normal respiratory effort, lungs clear to auscultation Cardiovascular: RRR, no murmur, no edema Gastrointestinal (Abdomen): Inspection/Auscultation: normal bowel sounds Percussion/Palpation: abdomen soft; abdomen nontender, no guarding and abdomen not rigid Discharge Data Allergies Allergy/AdvReac Type Severity Reaction Status Date / Time propoxyphene Allergy Mild Unknown Verified 03/01/19 04:52 Bactrim Allergy Unknown RASH Verified 10/08/17 21:39 erythromycin base Allergy Unknown Unknown Verified 03/01/19 04:52 metronidazole Allergy Unknown ? Verified 03/01/19 04:52 Penicillins Allergy Unknown Unknown Verified 03/01/19 04:52 sulfamethoxazole Allergy Unknown RASH Verified 03/01/19 04:52 trimethoprim Allergy Unknown RASH Verified 03/01/19 04:52 codeine AdvReac Unknown SICK TO Verified 03/01/19 04:52 STOMACH fentanyl AdvReac Unknown SEVERE Verified 03/01/19 04:52 N&V;DIZZY Quinolones AdvReac Unknown N&V Verified 03/01/19 04:52 Consultations 03/01/19 05:58 ED Decision to Admit Stat 03/02/19 09:37 Consult Cardiology Routine Ordered Studies 03/01/19 05:11 CT abd pelvis IV con only Urgent Hospital Course (1) Acute lower GI bleeding: DIARRHEA Presented with bloody diarrhea x 5 episodes prior to admission. None since yesterday evening Diarrhea resolved. Recent EGD 02/27/2019 for epigastric pain- 2 mm polyp in stomach body , removed Colonoscopy 10 years ago. Not recommended for screening any more due to age. -D/D considered: Diverticulosis, C diff ruled out -H & H stable -Tolerating advanced diet -CT scan Abd - Cholelithiasis, No obstruction, free air, diverticulosis, bilateral renal cysts, KUBnegative, Chest x-ray No acute findings, ill- defined opacity in right upper lung may be artifact, C diff - Neg, Stool culture was not collected -On protonix daily -Recommend outpatient colonoscopy. BRADYCARDIA HR in 40-50s, lowest 48. [id number] Reviewed Tele strips on 03/01/19- Had a burst of HR in 140s- SVT and <2 sec pauses= Blocked PACs Could contribute to dizziness. But dizziness has resolved. Discussed with cardiology- discontinued propranolol. Will make arrangements for zio patch outpatietn. Cleared for discharge TAA -4.1 cm as of outpatient Cardiology note July 2011 -CT surgery follow up for outpatient recommended HYPERLIPIDEMIA -Continue with statin HYPERGLYCEMIA HBA1C - 6.0 Life style modifications DVT prophylaxis. SCDs RE GI bleed Full code Disposition Medical mx in progress Monitor on telemetry Expected discharge home when stable Total Time Total Time Spent Total Time Spent (In Minutes): 38 minutes Discharge Plan Discharge Items Patient Disposition: Home - Self-Care Reason For Visit: LGIB Discharge Diagnosis: 1. Diarrhea with blood 2. Bradycardia Discharge Goals: Decrease discomfort Activity: Resume your previous activity Non-emergency contact: Primary Care Provider Call non-emergency contact if: your symptoms worsen Follow-up/Referrals: Umm Thompson MD [Primary Care Provider] - 03/08/19 10:05 am Diet: Heart Healthy and Low Sodium (2gm) Addtl Provider Instructions: MEDICATION CHANGES 1. Discontinue propranolol due to low HR Recommend outpatient colonoscopy Cardiology office will call you for Zio patch (device to monitor your heart rate) Prescriptions: Continued sumatriptan succinate 100 mg tablet 100 mg PO DAILY PRN (Reason: Migraine Headache) RF: 0 simvastatin 80 mg tablet 80 mg PO Q OTHER DAY RF: 0 omeprazole 40 mg capsule,delayed release(DR/EC) 40 mg PO DAILY RF: 0 Prolia 60 mg/mL Syringe 1 dose SUBCUT .TWICE A YEAR RF: 0 Discontinued propranolol 80 mg capsule,extended release 24 hr 80 mg PO DAILY RF: 0 Stand-Alone Forms: [facility] Discharge Orders: Discharge Order (Routine); Ordered 03/02/19 Ordered By: Jennifer Montalvo Admission Data Admit Date/Time: 03/01/19 06:44 Attending Provider: Jennifer Montalvo Admit Provider: Modesto Smalls Primary Care Provider: Umm Thompson Other Providers: Modesto Smalls ; Miguel Pelletier ; Jaydon Boudreaux ; Niranjan Castañeda ; Edwin Pagan ; Bacilio Lopez ; Iraj Arevalo ; Tamra Rocha ; Kimberlee Fernandez Service: Telemetry Medical
--- NOTE | 2019-03-02 13:13 | Consultation Report ---
DATE OF CONSULTATION: 03/02/2019 INPATIENT CARDIOLOGY CONSULTATION CONSULTATION REQUESTED BY: Dr. Montalvo. REASON FOR CONSULTATION: Questionable tachybrady. HISTORY OF PRESENT ILLNESS: Mrs. Xiong is a very pleasant 84-year-old woman who was seen once in our cardiology clinic by Dr. Pagan for top-normal aortic root. She presented to [facility] Emergency Department early in the a.m. of 03/01/2019 with complaints of bloody bowel movements. The patient recently underwent an upper endoscopy to evaluate recurrent abdominal discomfort that she was having. The procedure was unremarkable without complication. She then went home, had a meal, had an evening dinner, then went to bed with significant abdominal discomfort again which she states felt similar to her previous bouts of diverticulitis. She had several bowel movements, some of which appear bloody. She became concerned and came into the Emergency Department. Upon arrival, the patient did not appear to be actively GI bleeding and she was evaluated for C. diff. She was found to be a little bradycardic and her propranolol was held that she was previously on for migraines. Then on telemetry monitoring, she was showing tachycardic episodes into the 130s and 140s appearing to be paroxysmal supraventricular tachycardia, likely paroxysmal atrial tachycardia and then bradycardic episodes down into the 40s. The only symptom she had was this was a little bit of dizziness upon standing, but she states that it was the first time she was out of bed since admission. Otherwise, she denies any other complaints of chest pain, shortness of breath, lightheadedness, dizziness, palpitations or syncope. She denies any other symptoms as an outpatient recently as well and states that she has been in her normal health. The only change she made recently was stopping her Imitrex and try an [id number] medication for her migraines instead. PAST SURGICAL HISTORY: 1. Upper endoscopy on the . 2. Lumbar hemilaminectomy. 3. Lithotripsy. 4. Cataracts. MEDICAL ILLNESSES: 1. 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 2. Hypertension. 3. Hyperlipidemia. 4. GERD. 5. Migraines. 6. Raynaud's phenomenon. 7. Diverticulosis. FAMILY HISTORY: Noncontributory. SOCIAL HISTORY: Denies any alcohol, tobacco or recreational drug use. She is . She lives at home by herself. She has 2 children. REVIEW OF SYSTEMS: As per HPI, all other review of systems reviewed and negative at this time. ALLERGIES: 1. PROPOXYPHENE. 2. BACTRIM. 3. ERYTHROMYCIN. 4. METRONIDAZOLE. 5. PENICILLINS. 6. SULFAMETHOXAZOLE. 7. TRIMETHOPRIM. 8. CODEINE. 9. FENTANYL. 10. QUINOLONES. MEDICATIONS AN OUTPATIENT: 1. Propranolol 80 mg daily. 2. Simvastatin 80 mg every other day. 3. Imitrex as needed. 4. Zantac b.i.d. PHYSICAL EXAMINATION: VITALS: Temperature 36.9, pulse 43, respiratory rate 12, blood pressure 136/67. GENERAL: Awake, alert, oriented x3 in no acute distress. HEENT: Normocephalic, atraumatic. Pupils equal, round, reactive to light and accommodation. Extraocular muscles intact. Anicteric sclerae. Moist mucous membranes. NECK: No JVD, no bruit. CARDIOVASCULAR: Regular. No S4. Normal S1 and S2. No S3. No murmurs or rubs. PULMONARY: Clear to auscultation bilaterally. No rales, rhonchi, or wheezing. ABDOMEN: Bowel sounds x4, soft. No rebound, guarding, tenderness. No organomegaly. EXTREMITIES: No clubbing, cyanosis or edema. +2 pedal pulses bilaterally. SKIN: Warm and dry. TEST RESULTS: Review of telemetry monitoring shows sinus bradycardia into the 40s particularly while sleeping and at rest with recurrent bursts of paroxysmal supraventricular tachycardia into the 130s and 140s. LABORATORY STUDIES OF SIGNIFICANCE: Hemoglobin 13.3. Sodium 136, potassium 3.7, BUN 20, creatinine 0.9. TSH of 3.25. IMPRESSION: 1. Asymptomatic tachycardia and bradycardia. 2. Gastritis. 3. Borderline enlargement of the ascending aorta. 4. Hypertension. 5. Migraines. RECOMMENDATIONS: It was my pleasure to see Mrs. Xiong in consultation today. From a cardiac standpoint, while her rate variation is significant, she remains completely asymptomatic. So at this point, I recommend we continue to hold her propranolol and monitor over telemetry tonight. Should there not be any significant arrhythmias or any significant symptomatic episodes, I believe the patient could be discharged to home and then perform a 7-day Zio patch monitor as an outpatient and then followup with us in the cardiology clinic for further evaluation and consideration for an electrophysiology consultation will be placed, should she become symptomatic. FRANKIE
[2019-03-02] MEDS: TRAMADOL HCL 50 MG TABLET PO PRN ×2 (15:51→19:51)
[2019-03-02] MEDS ORDERED: MoRPHine SULFATE 2 MG/ML CARP IV STA (17:18)
--- NOTE | 2019-03-02 18:41 | Communication Note ---
Date of Service: March 02, 2019 Patient was discharged, but again started complaining of generalized abdominal pain all over. Also has nausea. No vomiting. Does not want to eat dinner. Received IV Morphine. Will add IV Morphine PRN Unclear etiology. Will downgrade diet to clear liquid. Monitor closely
[2019-03-02] MEDS ORDERED: MoRPHine SULFATE 2 MG/ML CARP IV PRN (18:42)
[2019-03-02] MEDS ORDERED: POTASSIUM CHLORIDE 20 MEQ TABCR PO STA (23:33)
[2019-03-03 00:24] LABS: Hemoglobin 14.3 g/dL (12.0-16.0); Immature Granulocytes # (auto) 0.05 K/uL (0.00-0.02); Immature Granulocytes % (auto) 0.5 %; Lymphocytes # (auto) 0.86 K/uL (1.2-3.4); Lymphocytes % (auto) 8.5 %; Mean Corpuscular Volume 90.5 fL (80-100); Mean Platelet Volume 10.2 fL (7.4-10.4); Monocytes # (auto) 0.56 K/uL (0.11-0.59); Monocytes % (auto) 5.6 %; Neutrophils # (auto) 8.62 K/uL (1.4-6.5); Neutrophils % (auto) 85.4 %; Platelet Count 213 K/uL (130-400); RDW Standard Deviation 42.9 fL (36.4-46.3); Red Blood Count 4.64 M/uL (4.2-5.4); White Blood Count 10.09 K/uL (4.8-10.8)
[2019-03-03 00:45] LABS: BUN Creatinine Ratio 32.2 (10-20); Calcium 8.4 mg/dl (8.5-10.1); Creatinine Clr Calc Pharmacy 43.5 ml/min; Est GFR (African American) 86.8; Est GFR (Non-African American) 74.9; Magnesium 2.5 mg/dl (1.8-2.4); Potassium 3.9 mmol/L (3.5-5.1)
[2019-03-03] MEDS ORDERED: POTASSIUM CHLORIDE 20 MEQ TABCR PO STA (02:22)
[2019-03-03] MEDS: PANTOprazole 40 MG TAB PO SCH (07:48)
--- NOTE | 2019-03-03 09:44 | Hospitalist Progress Note ---
Date of Service March 03, 2019 Assessment & Plan (1) Acute lower GI bleeding: DIARRHEA WITH BLOOD, ABDOMINAL PAIN: Presented with bloody diarrhea x 5 episodes prior to admission. Abdominal pain started 2 weeks ago- received antibiotics x 20 days (x 2). Recent EGD 02/27/2019 for the same- 2 mm polyp in stomach body , removed Colonoscopy 10 years ago. Not recommended for screening any more due to age. -D/D considered: Diverticulosis, C diff ruled out. CT scan- no acute inflammatory conditions -H & H stable -Tolerating clear liquid -will once again attempt to advance diet. -CT scan Abd - Cholelithiasis, No obstruction, free air, diverticulosis, bilateral renal cysts, KUBnegative, Chest x-ray No acute findings, ill- defined opacity in right upper lung may be artifact, C diff - Neg, Stool culture was not collected -On protonix daily -Will start Bentyl as per GI recommendations -Will consult GI as not improving and still has persistent. 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 BRADYCARDIA/TACHYCARDIA HR in 40-50s, lowest 48. [id number] Reviewed Tele strips - on and off bursts of tachycardia and blocked PACS Could contribute to dizziness. But dizziness has resolved. Discussed with cardiology- discontinued propranolol. Will make arrangements for zio patch outpatient. Cleared for discharge TAA -4.1 cm as of outpatient Cardiology note July 2011 -CT surgery follow up for outpatient recommended HYPERLIPIDEMIA -Continue with statin HYPERGLYCEMIA HBA1C - 6.0 Life style modifications DVT prophylaxis. SCDs RE GI bleed Full code Disposition Medical mx in progress Will change observation status to inpatient as persistent abdominal pain, symptomatic, still has bursts of tachy-michael Consulted GI today Subjective Patient was discharged yesterday. However, she re -developed symptoms of generalized abdominal pain. Had 2 lose BMs. No blood in stools. Had to downgrade the diet to clear liquid again Today morning she is feeling much better. Denies any abdominal pain. No more diarrhea or blood in stools. No nausea, vomiting. Tolerated clear liquid diet. No dizziness. No headaches, nausea, vomiting. Physical Exam Constitutional: WD/WN, vitals as above Respiratory: normal respiratory effort, lungs clear to auscultation Cardiovascular: RRR, no murmur, no edema Gastrointestinal (Abdomen): Inspection/Auscultation: normal bowel sounds Percussion/Palpation: abdomen soft; abdomen nontender, no guarding and abdomen not rigid Results & Data Vital Signs (Past 12 Hours) Vital Signs Temp Pulse Pulse Resp BP Pulse Ox 03/03/19 06:55 36.7 C 56 L 18 126/76 94 03/03/19 04:37 36.8 C 61 18 126/68 93 03/02/19 23:31 36.7 C 70 18 131/75 93 03/02/19 23:21 58 L
[2019-03-03] MEDS: DICYCLOMINE HCL 10 MG CAP PO SCH ×2 (13:34→20:41)
[2019-03-03] MEDS: SIMVASTATIN 80 MG TAB PO SCH (20:41)
[2019-03-04 06:51] LABS: Hematocrit (blood only) 40.2 % (37-47); Hemoglobin 13.5 g/dL (12.0-16.0); Mean Corpuscular Hgb Conc 33.6 g/dL (32-36); Mean Corpuscular Volume 91.6 fL (80-100); Mean Platelet Volume 9.7 fL (7.4-10.4); Platelet Count 198 K/uL (130-400); RDW Coefficient of Variation 13.3 % (11.5-14.5); RDW Standard Deviation 44.6 fL (36.4-46.3); Red Blood Count 4.39 M/uL (4.2-5.4)
[2019-03-04 07:22] LABS: BUN Creatinine Ratio 34.9 (10-20); Calcium 8.3 mg/dl (8.5-10.1); Creatinine Clr Calc Pharmacy 41.2 ml/min; Est GFR (African American) 81.5; Est GFR (Non-African American) 70.3; Potassium 4.3 mmol/L (3.5-5.1)
[2019-03-04] MEDS: PANTOprazole 40 MG TAB PO SCH (07:30)
[2019-03-04] MEDS: DICYCLOMINE HCL 10 MG CAP PO SCH (07:30)
--- NOTE | 2019-03-04 09:14 | History & Physical Report ---
Date of Service March 04, 2019 History of Present Illness Chief Complaint: Abdominal pain Primary Care Provider: Umm Thompson MD 84 yo fm with a a recent history of outpatient diverticulitis treated with abx, admitted a few days ago with abdominal pain and loose stools. Workup including CT A/P essentially negative, c diff negative. She was to be discharged Tuesday then with worsening abdominal pain and altered stools. I discussed her case with Dr. Jennifer Montalvo yesterday. 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 Bentyl TID was started on 03/03/19. This morning she reports feeling much better. The scrambled eggs may have been too much for her this morning she states. She is otherwise without any abdominal pain, fever, chills this morning. No altered bowel habits this morning- last bm was tuesday evening. She is overall feeling much better- coming out of the shower when I saw her. Allergies Allergy/AdvReac Type Severity Reaction Status Date / Time propoxyphene Allergy Mild Unknown Verified 03/01/19 04:52 Bactrim Allergy Unknown RASH Verified 10/08/17 21:39 erythromycin base Allergy Unknown Unknown Verified 03/01/19 04:52 metronidazole Allergy Unknown ? Verified 03/01/19 04:52 Penicillins Allergy Unknown Unknown Verified 03/01/19 04:52 sulfamethoxazole Allergy Unknown RASH Verified 03/01/19 04:52 trimethoprim Allergy Unknown RASH Verified 03/01/19 04:52 codeine AdvReac Unknown SICK TO Verified 03/01/19 04:52 STOMACH fentanyl AdvReac Unknown SEVERE Verified 03/01/19 04:52 N&V;DIZZY Quinolones AdvReac Unknown N&V Verified 03/01/19 04:52 Home Medications Home Medications Medication Instructions Recorded Confirmed Type Prolia 1 dose SUBCUT .TWICE A YEAR 01/14/19 03/01/19 History omeprazole 40 mg PO DAILY 01/14/19 03/01/19 History simvastatin 80 mg PO Q OTHER DAY 01/14/19 03/01/19 History sumatriptan succinate 100 mg PO DAILY PRN 01/14/19 03/01/19 History Past Med/Surg History Medical History Diverticula of colon Social History Preferred Language: Bulgarian Communication Ability: Effective Beliefs That Will Affect Care: None Current Living Situation: Alone Other Information That Helps Us Care for You: No Feels Safe at Home: Yes Safety Concerns: Feels Safe At This Time Smoking Status: Never smoker Hx Alcohol Use: No Hx Substance Use: No Review of Systems All systems reviewed & are unremarkable except as noted in HPI & below Physical Exam Vital Signs (Past 24 Hours): Last Vital Signs Temp 36.7 C 03/04/19 07:19 Pulse 61 03/04/19 07:19 Resp 20 03/04/19 07:19 BP 130/80 03/04/19 07:19 Pulse Ox 93 03/04/19 07:19 Physical Exam: Elderly female in nad Eyes: PERRL, conjunctivae normal, anicteric sclerae Respiratory: normal respiratory effort, lungs clear to auscultation Cardiovascular: RRR, no murmur, no edema Gastrointestinal (Abdomen): normal bowel sounds, soft, nontender, no hepatosplenomegaly Results & Data Laboratory Results Labs and recent CT A/P and c diff all reviewed Supervising Physician Co-Signing Physician Notes 84 yo fm with worsening abd pain yesterday after recent abx treatment for diverticulitis as an outpatient. Feeling better on Bentyl TID. 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 Would keep her on Bentyl TID for next 1-2 weeks then prn thereafter. No indication for repeat imaging or scope today. If looser stools, consider checking c diff. She asked if she could still go to [place] this upcoming week - I see no reason why she couldn't pending her clinical stability. I don't think at this time an outpatient colonoscopy is needed unless she has worsening pain- we did discuss the risks/benefits of colonoscopy today. Thank you for the consult.
--- NOTE | 2019-03-04 10:17 | Hospitalist Progress Note ---
Date of Service March 04, 2019 Assessment & Plan (1) Acute lower GI bleeding: DIARRHEA WITH BLOOD, ABDOMINAL PAIN: Resolved Presented with bloody diarrhea x 5 episodes prior to admission. Abdominal pain started 2 weeks ago- received antibiotics x 20 days (x 2). Improved, symptoms resolved--> discharged on 03/02/19--> Again had symptoms so discharge was held--> Now symptoms resolved Recent EGD 02/27/2019 for the same- 2 mm polyp in stomach body , removed. Col onoscopy 10 years ago. Not recommended for screening any more due to age. -D/D considered: Post infection IBS (per GI), Diverticulosis, C diff ruled out. CT scan- no acute inflammatory conditions -H & H stable -Tolerating soft diet -CT scan Abd - Cholelithiasis, No obstruction, free air, diverticulosis, bilateral renal cysts, KUBnegative, Chest x-ray No acute findings, ill- defined opacity in right upper lung may be artifact, C diff - Neg, Stool culture was not collected -On protonix daily -Started on Bentyl TID per GI recommendations on 03/03/19 -Consulted GI due to recurrent symptoms and ongoing for weeks. -Recommend outpatient colonoscopy. BRADYCARDIA/TACHYCARDIA HR in 40-50s, lowest 48. [id number] Reviewed Tele strips - on and off bursts of tachycardia and blocked PACS Could contribute to dizziness. But dizziness has resolved. Discussed with cardiology- discontinued propranolol. Will make arrangements for zio patch outpatient. Cleared for discharge TAA -4.1 cm as of outpatient Cardiology note July 2011 -CT surgery follow up for outpatient recommended HYPERLIPIDEMIA -Continue with statin HYPERGLYCEMIA HBA1C - 6.0 Life style modifications DVT prophylaxis. SCDs RE GI bleed Full code Disposition Observation status changed to inpatient Eager to be discharged Likely discharge today, awaiting GI inputs. Subjective Today morning she is feeling much better. Denies any abdominal pain. No more diarrhea or blood in stools. No nausea, vomiting. Tolerated soft diet well No dizziness. No headaches, nausea, vomiting. Eager to be discharged Physical Exam Constitutional: WD/WN, vitals as above Respiratory: normal respiratory effort, lungs clear to auscultation Cardiovascular: RRR, no murmur, no edema Gastrointestinal (Abdomen): Inspection/Auscultation: normal bowel sounds Percussion/Palpation: abdomen soft; abdomen nontender, no guarding and abdomen not rigid Results & Data Vital Signs (Past 12 Hours) Vital Signs Temp Pulse Pulse Resp BP Pulse Ox 03/04/19 07:19 36.7 C 61 20 130/80 93 03/04/19 04:00 36.8 C 54 L 18 121/67 96 03/04/19 00:00 54 L 03/03/19 23:00 36.7 C 56 L 18 149/83 H 95
--- NOTE | 2019-03-04 12:08 | Discharge Summary ---
Date of Service March 04, 2019 Admission HPI Per Admitting Provider 84 yo fm with a a recent history of outpatient diverticulitis treated with abx, admitted a few days ago with abdominal pain and loose stools. Workup including CT A/P essentially negative, c diff negative. She was to be discharged Tuesday then with worsening abdominal pain and altered stools. I discussed her case with Dr. Jennifer Montalvo yesterday. 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 Bentyl TID was started on 03/03/19. This morning she reports feeling much better. The scrambled eggs may have been too much for her this morning she states. She is otherwise without any abdominal pain, fever, chills this morning. No altered bowel habits this morning- last bm was tuesday evening. She is overall feeling much better- coming out of the shower when I saw her. Principal Diagnosis 1. Diarrhea with blood, possible diverticular bleed 2. Abdominal pain, Intermittent, possible post infection IBS 3. Bradycardia/Blocked PACs with tachycardia SECONDARY DIAGNOSIS ON DISCHARGE 1. Thoracic Aortic Aneursym 4.1 cm 2. Hyperlipidemia Discharge Exam Constitutional WD/WN, vitals as above Respiratory normal respiratory effort, lungs clear to auscultation Cardiovascular RRR, no murmur, no edema Gastrointestinal (Abdomen) Inspection/Auscultation: normal bowel sounds Percussion/Palpation: abdomen soft; abdomen nontender, no guarding and abdomen not rigid Discharge Data Allergies Allergy/AdvReac Type Severity Reaction Status Date / Time propoxyphene Allergy Mild Unknown Verified 03/01/19 04:52 Bactrim Allergy Unknown RASH Verified 10/08/17 21:39 erythromycin base Allergy Unknown Unknown Verified 03/01/19 04:52 metronidazole Allergy Unknown ? Verified 03/01/19 04:52 Penicillins Allergy Unknown Unknown Verified 03/01/19 04:52 sulfamethoxazole Allergy Unknown RASH Verified 03/01/19 04:52 trimethoprim Allergy Unknown RASH Verified 03/01/19 04:52 codeine AdvReac Unknown SICK TO Verified 03/01/19 04:52 STOMACH fentanyl AdvReac Unknown SEVERE Verified 03/01/19 04:52 N&V;DIZZY Quinolones AdvReac Unknown N&V Verified 03/01/19 04:52 Consultations 03/01/19 05:58 ED Decision to Admit Stat 03/02/19 09:37 Consult Cardiology Routine Ordered Studies 03/01/19 05:11 CT abd pelvis IV con only Urgent Hospital Course (1) Acute lower GI bleeding: DIARRHEA WITH BLOOD, ABDOMINAL PAIN: Resolved Presented with bloody diarrhea x 5 episodes prior to admission. Abdominal pain started 2 weeks ago- received antibiotics x 20 days (x 2). Improved, symptoms resolved--> discharged on 03/02/19--> Again had symptoms so discharge was held--> Now symptoms resolved Recent EGD 02/27/2019 for the same- 2 mm polyp in stomach body , removed. Colonoscopy 10 years ago. Not recommended for screening any more due to age. -D/D considered: Post infection IBS (per GI), Diverticulosis, C diff ruled out. CT scan- no acute inflammatory conditions -H & H stable -Tolerating soft diet -CT scan Abd - Cholelithiasis, No obstruction, free air, diverticulosis, bilateral renal cysts, KUBnegative, Chest x-ray No acute findings, ill- defined opacity in right upper lung may be artifact, C diff - Neg, Stool culture was not collected -On protonix daily -Started on Bentyl TID per GI recommendations on 03/03/19 -Discussed case with GI- thinks this could be post infection IBS symptoms now resolved. -Recommend outpatient colonoscopy. BRADYCARDIA/TACHYCARDIA HR in 40-50s, lowest 48. [id number] Reviewed Tele strips - on and off bursts of tachycardia and blocked PACS Could contribute to dizziness. But dizziness has resolved. Discussed with cardiology- discontinued propranolol. Will make arrangements for zio patch outpatient. Cleared for discharge TAA -4.1 cm as of outpatient Cardiology note July 2011 -CT surgery follow up for outpatient recommended HYPERLIPIDEMIA -Continue with statin HYPERGLYCEMIA HBA1C - 6.0 Life style modifications DVT prophylaxis. SCDs RE GI bleed Full code Disposition Observation status changed to inpatient Eager to be discharged Ok to discharge today Total Time Total Time Spent Total Time Spent (In Minutes): 38 minutes Discharge Plan Discharge Items Patient Disposition: Home - Self-Care Reason For Visit: LGIB Discharge Diagnosis: 1. Diarrhea with blood 2. Bradycardia Discharge Goals: Decrease discomfort Activity: Resume your previous activity Non-emergency contact: Primary Care Provider Call non-emergency contact if: your symptoms worsen Follow-up/Referrals: Umm Thompson MD [Primary Care Provider] - 03/08/19 10:05 am Diet: Heart Healthy and Low Sodium (2gm) Addtl Provider Instructions: MEDICATION CHANGES 1. Discontinue propranolol due to low HR 2. Dicyclomine 10 mg PO three times a day as needed for abd cramps Recommend outpatient colonoscopy Cardiology office will call you for Zio patch (device to monitor your heart rate) Prescriptions: New dicyclomine 10 mg capsule 10 mg PO TID PRN (Reason: abdominal discomfort) Qty: 20 RF: 0 Continued sumatriptan succinate 100 mg tablet 100 mg PO DAILY PRN (Reason: Migraine Headache) RF: 0 simvastatin 80 mg tablet 80 mg PO Q OTHER DAY RF: 0 omeprazole 40 mg capsule,delayed release(DR/EC) 40 mg PO DAILY RF: 0 Prolia 60 mg/mL Syringe 1 dose SUBCUT .TWICE A YEAR RF: 0 Discontinued propranolol 80 mg capsule,extended release 24 hr 80 mg PO DAILY RF: 0 Stand-Alone Forms: [facility] Discharge Orders: Discharge Order (Routine); Ordered 03/04/19 Ordered By: Jennifer Montalvo Admission Data Admit Date/Time: 03/03/19 10:10 Attending Provider: Jennifer Montalvo Admit Provider: Modesto Smalls Primary Care Provider: Umm Thompson Other Providers: Modesto Smalls ; Miguel Pelletier ; Jaydon Boudreaux ; Niranjan Castañeda ; Edwin Pagan ; JessicaBacilio horn ; Iraj Arevalo ; Tamra Rocha ; Kimberlee Fernandez Service: Telemetry Medical Other Interventions: Discharge Summary Assessment (RN) Last Done: 03/02/19 13:06 Pending Studies at Discharge: No
--- OUTSIDE RECORDS SUMMARY | 2019-03-05 20:54 | External Medical Summary | Continuity of Care Document ---
:1935 Author Name Juli Telles, Provider Address Unavailable Unavailable , Care Team Providers Name Role Phone Delfin Chen M.D. Unavailable [email or web address] Unavailable Unavailable Unavailable Unavailable Unavailable Problems Lichen sclerosus et atrophicus (701.0) (L90.0) Cystocele, midline (618.01) (N81.11) Well woman exam with routine gynecological exam (V72.31) (Z0 1.419) Urinary symptom or sign (788.99) (R39.9) Menopause (627.2) (Z78.0) Allergies and Adverse Reactions Cipro TABS (Allergy) Reaction: Confusion , Irritability, Delirium Codeine Derivatives (Allergy) Reaction: Nausea Erythromycin Derivatives (Allergy) React ion: Abdominal pain Flagyl TABS (Allergy) Penicillins (Allergy) Reaction: Hives, R vesta Sulfa Drugs (Allergy) Vasotec TABS (Allergy) Reaction: Other Medications Calcium + D TABS Refills: 0 Propranolol HCl - 80 MG Oral Tablet Refills: 0 Simvastatin 40 MG Oral Tablet Refills: 0 Imitrex TABS Refills: 0 Prolia 60 MG/ML SOLN Refills: 0 Omeprazole 40 MG Oral Capsule Delayed Release; TAKE 1 CAPSUL E DAILY. Quantity: 30 Refills: 3 Nystatin-Triamcinolone 205641-7.1 UNIT/G M-% External Ointment; apply to affected areas tid for 7-10 days. Elfego Chen Quantity: 15 Refills: 2 Clotrimazole-Betamethasone 1-0.05 % Exte rnal Cream; APPLY SPARINGLY TO AFFECTED AREA(S) 3 TIMES A DAY for 7-10 days as needed Elfego Gauthier Start: 29-Mar-2017 Quantity: 1 M. 15 GM Tube Refills: 3 Amitriptyline HCl TABS Refills: 0 Vitamin D TABS Refills: 0 Procedures History of Back Surgery Status: Complete d History of Renal Lithotripsy Status: Com pleted Immunizations Immunizations not documented Family History Father Family history of cardiac disorder (V17.49) (Z82.49) Status: Active Plan of Treatment Planned Encounters Appointment; Eunice Gauthier M.D. Start: 10:20 Request Planned Observations Planned Goals not documented Results No Known Results Results not documented Encounters Appointment; Eunice Gauthier M.D. 26-Apr-2018 10:00 Encounter Diagnosis: Problem not documented Appointment; Eunice Gauthier M.D. 29-Mar-2017 10:40 Encounter Diagnosis: Problem not documented Appointment; Eunice Gauthier M.D. 01-May-2019 10:20 Encounter Diagnosis: Problem not documented
== END 2019-03-04 13:00 | disposition home or self-care (01) | DRG 379 ==
LOC: ED 04:12 → 2W 06:44 → SUATTDRO 06:44 → INTOOBSV 06:44 → 2W 07:25

== ENCOUNTER 2019-08-29 07:47 | Inpatient (IN) ==
[2019-08-29] MEDS ORDERED: dilTIAZem HCl 5 MG/ML 5 ML VIAL IV STA ×3 (08:13→12:51)
[2019-08-29 08:24] LABS: Basophils # (auto) 0.03 K/uL (0-0.2); Basophils % (auto) 0.5 %; Eosinophils # (auto) 0.09 K/uL (0-0.5); Eosinophils % (auto) 1.4 %; Hematocrit (blood only) 48.7 % (37-47); Hemoglobin 16.3 g/dL (12.0-16.0); Immature Granulocytes # (auto) 0.05 K/uL (0.00-0.02); Immature Granulocytes % (auto) 0.8 %; Lymphocytes # (auto) 2.07 K/uL (1.2-3.4); Lymphocytes % (auto) 31.2 %; Mean Corpuscular Hemoglobin 30.4 pg (25-34); Mean Corpuscular Hgb Conc 33.5 g/dL (32-36); Mean Corpuscular Volume 90.7 fL (80-100); Mean Platelet Volume 9.9 fL (7.4-10.4); Monocytes # (auto) 0.37 K/uL (0.11-0.59); Monocytes % (auto) 5.6 %; Neutrophils # (auto) 4.02 K/uL (1.4-6.5); Neutrophils % (auto) 60.5 %; Platelet Count 214 K/uL (130-400); RDW Coefficient of Variation 13.8 % (11.5-14.5); RDW Standard Deviation 45.4 fL (36.4-46.3); Red Blood Count 5.37 M/uL (4.2-5.4); White Blood Count 6.63 K/uL (4.8-10.8)
[2019-08-29] MEDS: MAGNESIUM SULFATE / D5W 1 GM/100 ML BAG IV SCH ×4 (08:26→10:30)
[2019-08-29 08:33] LABS: Alanine Aminotransferase 48 U/L (12-78); Albumin Level 4.5 gm/dl (3.4-5.0); Aspartate Aminotransferase 29 U/L (15-37); BUN Creatinine Ratio 20.1 (10-20); Blood Urea Nitrogen 20 mg/dl (7-18); Calcium 9.2 mg/dl (8.5-10.1); Carbon Dioxide 27 mmol/L (21-32); Chloride 103 mmol/L (98-107); Creatinine Clr Calc Pharmacy 32.6 ml/min; Est GFR (African American) 59.6; Est GFR (Non-African American) 51.4; Glucose 116 mg/dl (70-99); Lipase 158 U/L (73-393); Potassium 3.6 mmol/L (3.5-5.1); Sodium 138 mmol/L (136-145)
[2019-08-29 08:38] LABS: Albumin Globulin Ratio 1.1 (0.9-2); Alkaline Phosphatase 69 U/L (45-117); Bilirubin,Total 0.4 mg/dl (0.2-1); Creatine Kinase 54 U/L (26-192); Creatine Kinase MB < 1.0 ng/ml (0.5-3.6); Globulin 4.1 gm/dl (2.5-4.0); Total Protein 8.6 gm/dl (6.4-8.2); Troponin I < 0.015 ng/ml (0-0.045)
[2019-08-29 08:39] LABS: Partial Thromboplastin Time 27.1 Seconds (21.0-31.0); Prothrombin Time 10.3 Seconds (9.0-12.0)
--- NOTE | 2019-08-29 08:47 | XRay Report ---
XR chest 1V portable CLINICAL HISTORY: Chest pain. COMPARISON STUDY: Chest radiograph April 08, 2019. FINDINGS: Lung volumes are normal. There is no pneumothorax or pleural effusion. There is no consolid ation to suggest pneumonia. Note is made of mild cardiomegaly without evidence for pulmonary edema. IMPRESSION: 1. No acute cardiopulmonary findings. 2. Mild cardiomegaly without evidence of pulmonary edema. Electronically signed by: Jaden Orozco M.D. 08/29/2019 8:45 AM
[2019-08-29] MEDS ORDERED: ASPIRIN CHEW 324 MG PO STA (08:53)
[2019-08-29 10:18] LABS: Magnesium 2.3 mg/dl (1.8-2.4)
--- NOTE | 2019-08-29 10:29 | History & Physical Report ---
Date of Service August 29, 2019 Assessment & Plan (1) Atrial fibrillation with RVR: Pt is 84 y/o F with PMH HTN, migraine GALICIA, h/o mild enlargement ascending aorta 4.1 cm, GERD, h/o bradycardia on propranolol presented onset up palpitations and heart racing this morning with associated dizziness, chest tightness In ER found to be in a-fib RVR HR: 127 up to 170, initial BP: 176/106, R: 22, 98% on RA, afebrile In ER was given diltiazem 18.5mg and 13.25mg with HR down to 70's and BP: 103/46 . In ER given magnesium sulfate 4gm IV total, ASA 324mg po No leukocytosis, no significant electrolyte abnormality. TSH: 4, initial troponin negative -Tele to monitor -Start metoprolol tartrate 25mg TID -CHADS-VASC: 4 -Start Heparin IV -Echo -Trend troponin -Cardiology consult -Monitor CBC, BMP, magnesium (2) Hypertension: Initially hypertensive in ER and BP down to SBP in low 100's -Continue terazosin with holding parameters (3) Migraine headache: -Hold amitriptyline, imitrex for now (4) GERD (gastroesophageal reflux disease): -Continue PPI DVT Prophylaxis -On Heparin IV Follows with Dr Delcid for routine care Pt was seen and care coordinated with Dr Hernandez. See addendum History of Present Illness Chief Complaint: Palpitations Primary Care Provider: Umm Thompson MD Pt is 84 y/o F with PMH HTN, migraine GALICIA, h/o mild enlargement ascending aorta 4.1 cm, GERD, h/o bradycardia on propranolol presented to ER with complaint of palpitations. Patient reports this morning woke up at 6:30 AM with palpitations and heart racing with associated chest tightness and dizziness. Reports took her blood pressure at home with automatic cuff and SBP was in the 160s and heart rate was recorded at 142. Denies any syncope, shortness of breath. Denies any recent illness. Hx diverticulitis with some rectal bleeding in 02/2019. Had stable hemoglobins during that admission. Patient denies any recurrent rectal bleeding, melena. Denies epistaxis, hematuria. Patient denies any falls. Denies alcohol use and reports minimal caffeine use. History of migraine headaches and uses amitriptyline at bedtime and Imitrex as needed. Denies fever/chills, diaphoresis, N/V/D/C, vision changes, neck pain, SOB, orthopnea, cough, sore throat, choking, otalgia, rhinorrhea, abdominal pain, paresthesias, weakness, extremity weakness, extremity edema, rashes, urinary symptoms. History echo 03/02/2019: EF 65-70%, grade 1 diastolic dysfunction, mild aortic regurgitation, top normal ascending aorta at 4 cm Presented to ER was found to be in atrial fibrillation RVR with rate up to 170s. Was given bolus diltiazem with rate down to 70. Allergies Allergy/AdvReac Type Severity Reaction Status Date / Time propoxyphene Allergy Mild Unknown Verified 08/29/19 08:30 Bactrim Allergy Unknown RASH Verified 10/08/17 21:39 erythromycin base Allergy Unknown Unknown Verified 08/29/19 08:30 metronidazole Allergy Unknown ? Verified 08/29/19 08:30 Penicillins Allergy Unknown Unknown Verified 08/29/19 08:30 sulfamethoxazole Allergy Unknown RASH Verified 08/29/19 08:30 trimethoprim Allergy Unknown RASH Verified 08/29/19 08:30 ciprofloxacin [From Cipro] Allergy Unknown Verified 08/29/19 13:00 enalapril AdvReac Intermediate tightness Unverified 08/29/19 08:30 in ankles topiramate [From Topamax] AdvReac Intermediate fingers Unverified 08/29/19 08:30 numb codeine AdvReac Unknown SICK TO Verified 08/29/19 08:30 STOMACH fentanyl AdvReac Unknown SEVERE Verified 08/29/19 08:30 N&V;DIZZY Quinolones AdvReac Unknown N&V Verified 08/29/19 08:30 clindamycin AdvReac Nausea Unverified 08/29/19 08:30 tramadol [From Ultram] AdvReac Unknown Unverified 08/29/19 08:30 Home Medications Home Medications Medication Instructions Recorded Confirmed Type Prolia 1 dose SUBCUT .TWICE A YEAR 01/14/19 08/29/19 History omeprazole 40 mg PO QAM 01/14/19 08/29/19 History sumatriptan succinate 100 mg PO DAILY PRN 01/14/19 08/29/19 History clotrimazole-betamethasone 1 1 appln TOP .COMPLEX #15 gm 07/16/19 08/29/19 Rx %-0.05 % topical cream amitriptyline 10 mg PO HS 08/29/19 08/29/19 History cholecalciferol (vitamin D3) 2,000 unit PO DAILY 08/29/19 08/29/19 History [Vitamin D3] cyclobenzaprine 5 mg PO HS 08/29/19 08/29/19 History magnesium oxide 400 mg PO QAM 08/29/19 08/29/19 History riboflavin (vitamin B2) [Vitamin 400 mg PO QAM 08/29/19 08/29/19 History B-2] terazosin 1 mg PO HS 08/29/19 08/29/19 History Past Med/Surg History Medical History Diverticulitis (Resolved) Thoracic aortic aneurysm (Chronic) 4.1 cm GERD (gastroesophageal reflux disease) (Chronic) Gastroparesis (Chronic) Migraine headache (Chronic) Hypertension (Chronic) Acute lower GI bleeding (Resolved) Hyperlipidemia Diverticula of colon Surgical History History of lumbar surgery (Chronic) History of cataract surgery (Chronic) Family History Other Coronary heart disease Social History Preferred Language: Frisian Communication Ability: Effective Enologist Required: No Beliefs That Will Affect Care: None Current Living Situation: Alone Other Information That Helps Us Care for You: No Feels Safe at Home: Yes Safety Concerns: Feels Safe At This Time Smoking Status: Never smoker Do You Dip or Chew Tobacco: No ; Second Hand Exposure: No ; Tobacco Cessation Education Requested by Patient: No Hx Alcohol Use: No Hx Substance Use: No Review of Systems Review of Systems: All systems reviewed & are unremarkable except as noted in HPI & below Physical Exam Physical Exam: General: no acute distress, WDWN Head: normocephalic, atraumatic Eyes: PERRL, EOM's intact, conjunctiva non-injected, anicteric ENT: normal inspection external ears, nose, mucous membranes moist Neck: supple, trachea midline Lungs: clear, no respiratory distress, no wheezing/rhonchi/rales CV: irregularly irregular, rate 110, no pretibial edema Abd: normal BS, soft, non-tender Ext: no cyanosis, no calf tenderness Neuro: A&O x 3, no focal deficits noted, normal affect Skin: warm, dry Results & Data Vital Signs (Past 12 Hours) Vital Signs Temp Pulse Pulse Resp BP BP Pulse Ox 08/29/19 08:52 90 18 103/46 L 97 08/29/19 07:50 36 C L 127 H 22 176/106 H 98 08/29/19 07:47 97 Laboratory Results Short CBC 08/29/19 Range/Units 08:06 WBC 6.63 (4.8-10.8) K/uL Hgb 16.3 H (12.0-16.0) g/dL Hct 48.7 H (37-47) % Plt Count 214 (130-400) K/uL BMP 08/29/19 08:06 Sodium 138 Potassium 3.6 Chloride 103 Carbon Dioxide 27 BUN 20 H Creatinine 1.01 Glucose 116 H Calcium 9.2 Cardiac Enzymes 08/29/19 Range/Units 08:06 Total Creatine Kinase 54 (26-192) U/L CK-MB (CK-2) < 1.0 (0.5-3.6) ng/ml Troponin I < 0.015 (0-0.045) ng/ml Liver Function 08/29/19 Range/Units 08:06 Total Bilirubin 0.4 (0.2-1) mg/dl AST 29 (15-37) U/L ALT 48 (12-78) U/L Alkaline Phosphatase 69 (45-117) U/L Albumin 4.5 (3.4-5.0) gm/dl Diagnostic Findings CXR: IMPRESSION: 1. No acute cardiopulmonary findings. 2. Mild cardiomegaly without evidence of pulmonary edema. ECG Rate (beats per minute): 171 Rhythm: atrial fibrillation Supervising Physician Co-Signing Physician Notes I have seen and examined the patient and have discussed the case with the prov ider above. I agree with the assessment and plan as stated with the following exceptions. Although her heart rate was in the 70s, by the time she arrived on the floor her heart rate was consistently in the 150-170s. She was placed back on a diltiazem drip after an additional 5mg IV bolus. Physically she reports no chest pain or shortness of breath. She has no recent post-nasal drip or other cold or allergy symptoms. She reports recent travel to [place] over the weekend. She denies any recent vaccines. Caffeine intake includes one cup of coffee daily. She reports just feeling very tired and run down. Heart rate is tachy and irregular and rhythm is irregular to auscultation. Lungs are clear to auscultation throughout. She is alert and appropriate and not working to breathe. Abdomen is soft and nontender. No swelling to lower extremities or evidence of peripheral edema. Otherwise agree with the plan above including heparin drip. Cont to titrate diltiazem drip to goal. DO David (1) Migraine headache Intractability: not intractable Migraine type: without aura Status migrainosus presence: without status migrainosus Qualified Code(s): G43.009 - M igraine without aura, not intractable, without status migrainosus (2) Hypertension Hypertension type: essential hypertension Qualified Code(s): I10 - Essential (primary) hypertension
[2019-08-29] MEDS ORDERED: ASPIRIN CHEW 324 MG ONE (10:56)
[2019-08-29] MEDS ORDERED: ACETAMINOPHEN 325 MG TAB PO PRN (11:42)
[2019-08-29] MEDS ORDERED: dilTIAZem HCL 125 MG in DEXTROSE 5% 100 ML IV SCH (13:00)
[2019-08-29] MEDS: HEPARIN SODIUM/DEXTROSE 25,000 UNITS/500 ML BAG IV SCH (13:25)
[2019-08-29] MEDS: Heparin IV Low Dose *NO* Bolus IV SCH ×2 (13:27→13:28)
--- NOTE | 2019-08-29 13:48 | Cardiology Consultation ---
Date of Consultation August 29, 2019 Assessment & Plan (1) Atrial fibrillation with RVR: The patient remains in atrial fibrillation with better heart rate control on the diltiazem drip. She was on a fairly large dose of propranolol when it was discontinued in February due to slow heart rates. I am going to restart a beta-jolene by adding metoprolol at 12.5 mg twice daily to start. I will review the echocardiogram when it is completed. History of Present Illness Attending Physician: Leanne Pineda MD History of Present Illness This is an 84-year-old female who enjoys fairly good health. In February of this year she was admitted with diverticulitis. She had been taking propranolol for migraine headaches and during that admission she was noted to have heart rates in the range of 30 bpm. Her propranolol was discontinued. She had a monitor for 1 week as an outpatient which failed to show any significant arrhythmias. She was doing well and in her usual state of health until this morning when she awoke with a rapid heart rate. She presented to the emergency department with atrial fibrillation and RVR. She has been started on a diltiazem drip as well as heparin. She is now resting comfortably but remains in atrial fibrillation. PAST MEDICAL HISTORY: 1. Mild enlargement of the ascending aorta measuring 4.1 cm 2. Hypertension 3. Migraines 4. Significant bradycardia while on beta blockers Allergies Allergy/AdvReac Type Severity Reaction Status Date / Time propoxyphene Allergy Mild Unknown Verified 08/29/19 08:30 Bactrim Allergy Unknown RASH Verified 10/08/17 21:39 erythromycin base Allergy Unknown Unknown Verified 08/29/19 08:30 metronidazole Allergy Unknown ? Verified 08/29/19 08:30 Penicillins Allergy Unknown Unknown Verified 08/29/19 08:30 sulfamethoxazole Allergy Unknown RASH Verified 08/29/19 08:30 trimethoprim Allergy Unknown RASH Verified 08/29/19 08:30 ciprofloxacin [From Cipro] Allergy Unknown Verified 08/29/19 13:00 enalapril AdvReac Intermediate tightness Unverified 08/29/19 08:30 in ankles topiramate [From Topamax] AdvReac Intermediate fingers Unverified 08/29/19 08:30 numb codeine AdvReac Unknown SICK TO Verified 08/29/19 08:30 STOMACH fentanyl AdvReac Unknown SEVERE Verified 08/29/19 08:30 N&V;DIZZY Quinolones AdvReac Unknown N&V Verified 08/29/19 08:30 clindamycin AdvReac Nausea Unverified 08/29/19 08:30 tramadol [From Ultram] AdvReac Unknown Unverified 08/29/19 08:30 Home Medications Home Medications Medication Instructions Recorded Confirmed Type Prolia 1 dose SUBCUT .TWICE A YEAR 01/14/19 08/29/19 History omeprazole 40 mg PO QAM 01/14/19 08/29/19 History sumatriptan succinate 100 mg PO DAILY PRN 01/14/19 08/29/19 History clotrimazole-betamethasone 1 1 appln TOP .COMPLEX #15 gm 07/16/19 08/29/19 Rx %-0.05 % topical cream amitriptyline 10 mg PO HS 08/29/19 08/29/19 History cholecalciferol (vitamin D3) 2,000 unit PO DAILY 08/29/19 08/29/19 History [Vitamin D3] cyclobenzaprine 5 mg PO HS 08/29/19 08/29/19 History magnesium oxide 400 mg PO QAM 08/29/19 08/29/19 History riboflavin (vitamin B2) [Vitamin 400 mg PO QAM 08/29/19 08/29/19 History B-2] terazosin 1 mg PO HS 08/29/19 08/29/19 History Patient History Medical History Diverticulitis (Resolved) Thoracic aortic aneurysm (Chronic) 4.1 cm GERD (gastroesophageal reflux disease) (Chronic) Gastroparesis (Chronic) Migraine headache (Chronic) Hypertension (Chronic) Acute lower GI bleeding (Resolved) Hyperlipidemia Diverticula of colon Surgical History History of lumbar surgery (Chronic) History of cataract surgery (Chronic) Family History Other Coronary heart disease Social History Preferred Language: Gibraltarian Communication Ability: Effective Surveillance Agent Required: No Beliefs That Will Affect Care: None Current Living Situation: Alone Other Information That Helps Us Care for You: No Feels Safe at Home: Yes Safety Concerns: Feels Safe At This Time Smoking Status: Never smoker Do You Dip or Chew Tobacco: No ; Second Hand Ex posure: No ; Tobacco Cessation Education Requested by Patient: No Hx Alcohol Use: No Hx Substance Use: No Review of Systems Review of Systems: All systems reviewed & are unremarkable except as noted in HPI & below Nothing additional. Physical Exam Physical Exam: General: no acute distress and stated age Head: normocephalic, no masses, lesions, tenderness or abnormalities Eyes: conjunctiva are pink and non-injected, sclera clear Neck: supple, no adenopathy, no bruits, normal jugular venous pulse, no hepatojugular reflux Chest: normal shape and normal respiratory effort Lungs: clear to auscultation and percussion Cardiac Exam: - irregular rate & rhythm, no murmurs gallops or rubs - normal S1, normal S2 Pulses: 2(+) throughout Abdomen: abdomen soft, non-tender, no abnormal masses and no hepatosplenomegaly Musculoskeletal: no gait disturbance, no joint inflammation, no deforming arthritis Extremities: no edema and no cyanosis Neuro: grossly normal exam Results & Data Vital Signs (Past 12 Hours) Vital Signs Temp Pulse Pulse Resp BP BP Pulse Ox 08/29/19 13:29 131 H 115/80 08/29/19 13:14 121 H 100/63 08/29/19 12:03 150 H 08/29/19 11:43 36.3 C L 96 H 12 101/69 96 08/29/19 11:42 08/29/19 11:01 130 H 17 106/94 08/29/19 11:00 120 H 16 08/29/19 10:45 140 H 20 106/68 08/29/19 10:31 130 H 16 111/68 08/29/19 10:30 133 H 15 08/29/19 10:16 131 H 16 100/88 08/29/19 10:11 133 H 21 128/82 08/29/19 10:00 125 H 130 H 24 120/64 95 08/29/19 09:45 115 H 16 120/64 95 08/29/19 09:30 106 H 27 H 117/92 93 08/29/19 09:15 118 H 16 121/77 91 08/29/19 09:00 81 21 103/65 94 08/29/19 08:52 90 18 103/46 L 97 08/29/19 08:47 91 H 18 103/46 L 97 08/29/19 08:31 130 H 18 116/82 08/29/19 08:30 130 H 17 08/29/19 08:16 163 H 22 132/93 08/29/19 08:06 159 H 161/116 H 08/29/19 08:03 160 H 08/29/19 07:50 36 C L 127 H 22 176/106 H 98 08/29/19 07:47 97 Pulse Ox 08/29/19 13:29 08/29/19 13:14 08/29/19 12:03 08/29/19 11:43 08/29/19 11:42 96 08/29/19 11:01 08/29/19 11:00 08/29/19 10:45 08/29/19 10:31 08/29/19 10:30 08/29/19 10:16 08/29/19 10:11 08/29/19 10:00 08/29/19 09:45 08/29/19 09:30 08/29/19 09:15 08/29/19 09:00 08/29/19 08:52 08/29/19 08:47 08/29/19 08:31 08/29/19 08:30 08/29/19 08:16 08/29/19 08:06 08/29/19 08:03 08/29/19 07:50 08/29/19 07:47 Laboratory Results Laboratory Results - last 24 hr 08/29/19 08/29/19 08/29/19 08:06 08:06 08:06 WBC 6.63 RBC 5.37 Hgb 16.3 H Hct 48.7 H MCV 90.7 MCH 30.4 MCHC 33.5 RDW Std Deviation 45.4 RDW Coeff of Ling 13.8 Plt Count 214 MPV 9.9 Immature Gran % (Auto) 0.8 Neut % (Auto) 60.5 Lymph % (Auto) 31.2 [place] % (Auto) 5.6 Eos % (Auto) 1.4 Baso % (Auto) 0.5 Immature Gran # (Auto) 0.05 H Neut # (Auto) 4.02 Lymph # (Auto) 2.07 [place] # (Auto) 0.37 Eos # (Auto) 0.09 Baso # (Auto) 0.03 PT 10.3 INR 1.0 APTT 27.1 PTT Ratio 1.0 Sodium 138 Potassium 3.6 Chloride 103 Carbon Dioxide 27 Anion Gap 8.0 BUN 20 H Creatinine 1.01 Est Cr Clr Drug Dosing 32.6 Est GFR ( Amer) 59.6 Est GFR (Non-Af Amer) 51.4 BUN/Creatinine Ratio 20.1 H Glucose 116 H Calcium 9.2 Magnesium 2.3 Total Bilirubin 0.4 AST 29 ALT 48 Alkaline Phosphatase 69 Total Creatine Kinase 54 CK-MB (CK-2) < 1.0 CK/CKMB % Calc TNP Troponin I < 0.015 Total Protein 8.6 H Albumin 4.5 Globulin 4.1 H Albumin/Globulin Ratio 1.1 Lipase 158 TSH 4.100 Medications Administered Current Inpatient Medications Acetaminophen (Tylenol) 650 mg PO Q4H PRN PRN Reason: Pain or Fever Stop: 09/28/19 11:41 Heparin Sodium/Dextrose (Heparin Sodium/Dextrose) 25,000 units in 500 mls @ 12 mls/hr IV .Q24H [facility]; Protocol Stop: 09/28/19 11:41 Last Admin: 08/29/19 13:25 Dose: 600 units/hr, 12 mls/hr Documented by: Diltiazem HCl 125 mg/ Dextrose 125 mls @ 5 mls/hr IV .Q24H [facility]; Protocol Stop: 09/28/19 12:59 Last Admin: 08/29/19 13:12 Dose: 5 mg/hr, 5 mls/hr Documented by: Magnesium Oxide (Mag-Ox) 400 mg PO QAM [facility] Stop: 09/29/19 08:59 Metoprolol Tartrate (Lopressor) 12.5 mg PO BID [facility] Stop: 09/28/19 20:59 Pantoprazole Sodium (Protonix) 40 mg PO QAM [facility] Stop: 09/29/19 08:59 Terazosin HCl (Hytrin) 1 mg PO HS [facility] Stop: 09/28/19 20:59 Vitamin D (Vitamin D3) 2,000 units PO DAILY [facility] Stop: 09/29/19 08:59
[2019-08-29] MEDS ORDERED: METOPROLOL TARTRATE 25 MG TAB PO SCH (14:00)
[2019-08-29] MEDS ORDERED: MoRPHine SULFATE 2 MG/ML CARP IV PRN ×2 (14:33→15:36)
[2019-08-29] MEDS ORDERED: NITROGLYCERIN SL 0.4 MG/TAB TAB SL PRN (15:36)
--- NOTE | 2019-08-29 16:52 | Emergency Department Note ---
Entered by Allegra Hsu acting as a scribe for Tahir Au MD History of Present Illness General Chief complaint: Tachycardia Stated complaint: TACHYCARDIA, HTN Time Seen by Provider: 08/29/19 07:59 Source: patient History of Present Illness Onset (ago): minute(s) (upon waking up this morning ) Location: chest Pain Consistency: + other (episode) Maximum Pain Intensity: 0 Quality: + other (tachycardia) Associated symptoms: + chest pain (chest tightness), + shortness of breath and + other (-abdominal pain ) The patient is an 84 year old female, with past medical history of hypertension and hyperlipidemia, who presents to the Emergency Room with complaints of an episode of tachycardia that occurred upon waking up this morning, prior to arrival. The patient states it felt as if her heart was beating out of her chest upon waking up this morning, which caused the patient to check her pulse. The p atient states her pulse was 140 at the time, and she notes it has consistently stayed high and has gotten worse. The patient also notes of chest tightness and shortness of breath during this episode. The patient denies abdominal pain. The patient also denies prior history of atrial fibrillation. The patient reports that she sees a manager costing due to past family medical history of CAD and [place]. The patient notes she was seen in the hospital in the past for bradycardia. The patient states that at that time, she was taken off a beta jolene that she used to be on. Home Medications Home Medications Medication Instructions Recorded Confirmed Type Prolia 1 dose SUBCUT .TWICE A YEAR 01/14/19 08/29/19 History omeprazole 40 mg PO QAM 01/14/19 08/29/19 History sumatriptan succinate 100 mg PO DAILY PRN 01/14/19 08/29/19 History clotrimazole-betamethasone 1 1 appln TOP .COMPLEX #15 gm 07/16/19 08/29/19 Rx %-0.05 % topical cream amitriptyline 10 mg PO HS 08/29/19 08/29/19 History cholecalciferol (vitamin D3) 2,000 unit PO DAILY 08/29/19 08/29/19 History [Vitamin D3] cyclobenzaprine 5 mg PO HS 08/29/19 08/29/19 History magnesium oxide 400 mg PO QAM 08/29/19 08/29/19 History riboflavin (vitamin B2) [Vitamin 400 mg PO QAM 08/29/19 08/29/19 History B-2] terazosin 1 mg PO HS 08/29/19 08/29/19 History Allergies Allergy/AdvReac Type Severity Reaction Status Date / Time propoxyphene Allergy Mild Unknown Verified 08/29/19 08:30 Bactrim Allergy Unknown RASH Verified 10/08/17 21:39 erythromycin base Allergy Unknown Unknown Verified 08/29/19 08:30 metronidazole Allergy Unknown ? Verified 08/29/19 08:30 Penicillins Allergy Unknown Unknown Verified 08/29/19 08:30 sulfamethoxazole Allergy Unknown RASH Verified 08/29/19 08:30 trimethoprim Allergy Unknown RASH Verified 08/29/19 08:30 ciprofloxacin [From Cipro] Allergy Unknown Verified 08/29/19 13:00 enalapril AdvReac Intermediate tightness Unverified 08/29/19 08:30 in ankles topiramate [From Topamax] AdvReac Intermediate fingers Unverified 08/29/19 08:30 numb codeine AdvReac Unknown SICK TO Verified 08/29/19 08:30 STOMACH fentanyl AdvReac Unknown SEVERE Verified 08/29/19 08:30 N&V;DIZZY Quinolones AdvReac Unknown N&V Verified 08/29/19 08:30 clindamycin AdvReac Nausea Unverified 08/29/19 08:30 tramadol [From Ultram] AdvReac Unknown Unverified 08/29/19 08:30 Past Med/Surg History Medical History Diverticulitis (Resolved) Thoracic aortic aneurysm (Chronic) 4.1 cm GERD (gastroesophageal reflux disease) (Chronic) Gastroparesis (Chronic) Migraine headache (Chronic) Hypertension (Chronic) Acute lower GI bleeding (Resolved) Hyperlipidemia Diverticula of colon Surgical History History of lumbar surgery (Chronic) History of cataract surgery (Chronic) Family History Other Coronary heart disease Social History Preferred Language: [place]ambian Communication Ability: Effective Police Service Technician Required: No Beliefs That Will Affect Care: None Current Living Situation: Alone Other Information That Helps Us Care for You: No Feels Safe at Home: Yes Safety Concerns: Feels Safe At This Time Smoking Status: Never smoker Do You Dip or Chew Tobacco: No ; Second Hand Exposure: No ; Tobacco Cessation Education Requested by Patient: No Hx Alcohol Use: No Hx Substance Use: No Review of Systems See HPI for pertinent positives & negatives. and A total of 10 systems reviewed and were otherwise negative Physical Exam Vital Signs Vital Signs - 24 hr 08/29/19 07:47 08/29/19 07:50 08/29/19 08:03 Temperature 36 C L Temperature Source Oral Oral Sepsis Recent Fever Within 48 Hours No Sepsis New/Unexplained Change in Mental Status No Sepsis Action Taken by Nursing No Action Required Pulse Rate 127 H 160 H Pulse Rate [Apical] Pulse Rate from SpO2 Sensor Respiratory Rate 22 Respiratory Effort / Characteristics Non-Labored Spontaneous Respiratory Depth Normal Respiratory Pattern Regular Blood Pressure 176/106 H Blood Pressure [Left Arm] Blood Pressure Mean 129 Blood Pressure Mean [Left Arm] Blood Pressure Position Sitting Pulse Oximetry 97 98 Oxygen Delivery Method Room Air Room Air 08/29/19 08:06 08/29/19 08:16 08/29/19 08:18 Temperature Temperature Source Sepsis Recent Fever Within 48 Hours Sepsis New/Unexplained Change in Mental Status Sepsis Action Taken by Nursing Pulse Rate 159 H 163 H Pulse Rate [Apical] Pulse Rate from SpO2 Sensor Respiratory Rate 22 Respiratory Effort / Characteristics Respiratory Depth Respiratory Pattern Blood Pressure 161/116 H 132/93 Blood Pressure [Left Arm] Blood Pressure Mean 131 106 Blood Pressure Mean [Left Arm] Blood Pressure Position Pulse Oximetry Oxygen Delivery Method Room Air 08/29/19 08:30 08/29/19 08:31 08/29/19 08:47 Temperature Temperature Source Sepsis Recent Fever Within 48 Hours Sepsis New/Unexplained Change in Mental Status Sepsis Action Taken by Nursing Pulse Rate 130 H 130 H 91 H Pulse Rate [Apical] Pulse Rate from SpO2 Sensor 76 Respiratory Rate 17 18 18 Respiratory Effort / Characteristics Respiratory Depth Respiratory Pattern Blood Pressure 116/82 103/46 L Blood Pressure [Left Arm] Blood Pressure Mean 93 65 Blood Pressure Mean [Left Arm] Blood Pressure Position Pulse Oximetry 97 Oxygen Delivery Method 08/29/19 08:52 08/29/19 09:00 08/29/19 09:15 Temperature Temperature Source Sepsis Recent Fever Within 48 Hours Sepsis New/Unexplained Change in Mental Status Sepsis Action Taken by Nursing Pulse Rate 81 118 H Pulse Rate [Apical] 90 Pulse Rate from SpO2 Sensor 71 112 H Respiratory Rate 18 21 16 Respiratory Effort / Characteristics Respiratory Depth Respiratory Pattern Blood Pressure 103/65 121/77 Blood Pressure [Left Arm] 103/46 L Blood Pressure Mean 77 91 Blood Pressure Mean [Left Arm] 65 Blood Pressure Position Pulse Oximetry 97 94 91 Oxygen Delivery Method 08/29/19 09:30 08/29/19 09:45 08/29/19 10:00 Temperature Temperature Source Sepsis Recent Fever Within 48 Hours Sepsis New/Unexplained Change in Mental Status Sepsis Action Taken by Nursing Pulse Rate 106 H 115 H 125 H Pulse Rate [Apical] 130 H Pulse Rate from SpO2 Sensor 114 H 107 H 104 H Respiratory Rate 27 H 16 24 Respiratory Effort / Characteristics Respiratory Depth Respiratory Pattern Blood Pressure 117/92 120/64 Blood Pressure [Left Arm] 120/64 Blood Pressure Mean 100 82 Blood Pressure Mean [Left Arm] 82 Blood Pressure Position Pulse Oximetry 93 95 95 Oxygen Delivery Method 08/29/19 10:11 Temperature Temperature Source Sepsis Recent Fever Within 48 Hours Sepsis New/Unexplained Change in Mental Status Sepsis Action Taken by Nursing Pulse Rate 133 H Pulse Rate [Apical] Pulse Rate from SpO2 Sensor Respiratory Rate 21 Respiratory Effort / Characteristics Respiratory Depth Respiratory Pattern Blood Pressure 128/82 Blood Pressure [Left Arm] Blood Pressure Mean 97 Blood Pressure Mean [Left Arm] Blood Pressure Position Pulse Oximetry Oxygen Delivery Method GENERAL: Awake, alert, well-appearing, in no acute distress HENT: Normocephalic, atraumatic. Oropharynx unremarkable. EYES: Normal conjunctiva. Sclera non-icteric. NECK: Supple. No nuchal rigidity. FROM. No JVD. RESPIRATORY: Clear to auscultation. CARDIAC: Tachycardic rate, normal rhythm. Extremities warm and well perfused. Pulses equal. ABDOMEN: Soft, non-distended. No tenderness to palpation. No rebound or guarding. No masses. RECTAL: Deferred. MUSCULOSKELETAL: Chest examination reveals no tenderness. The back is symmetrical on inspection without obvious abnormality. There is no CVA tenderness to palpation. No joint edema. LOWER EXTREMITIES: Calves are equal size bilaterally and non-tender. No edema. No discoloration. NEURO: Normal sensorium. No sensory or motor deficits noted. SKIN: No rash or jaundice noted. Course 0800: Past medical records reviewed. The patient was evaluated in room A11B. A complete history and physical exam was performed. 0820: I evaluated the patient. A complete history and physical exam was performed. 0840: I discussed the patient's case with Dr. Gonzales. 0845: The patient states she is no longer having chest pain. 0850: I reviewed the patient's case with Diana Miles. Dr. Franklin Miles will evaluate the patient for further management. Consultations Consultation #1: I discussed the patient's case with Dr. Gonzales. Time: 08:40 Consultation #2: I reviewed the patient's case with Diana Miles. Dr. Franklin Miles will evaluate the patient for further management. Time: 08:50 Administered Medications Heparin Sodium/Dextrose (Heparin Sodium/Dextrose) 25,000 units in 500 mls @ 17 mls/hr IV .Q24H [facility]; Protocol Stop: 09/28/19 11:41 Last Titration: 08/31/19 07:01 Dose: 850 units/hr, 17 mls/hr Documented by: [id number] Cosigned by: [id number] Titration: 08/31/19 06:37 Dose: 850 units/hr, 17 mls/hr Documented by: [id number] Cosigned by: [id number] Titration: 08/30/19 22:05 Dose: 750 units/hr, 15 mls/hr Documented by: [id number] Cosigned by: [id number] Admin: 08/30/19 22:04 Dose: 750 units/hr, 15 mls/hr Documented by: [id number] Cosigned by: [id number] Titration: 08/30/19 22:04 Dose: 750 units/hr, 15 mls/hr Documented by: [id number] Cosigned by: [id number] Titration: 08/30/19 08:27 Dose: 750 units/hr, 15 mls/hr Documented by: [id number] Cosigned by: [id number] Titration: 08/29/19 23:16 Dose: 700 units/hr, 14 mls/hr Documented by: [id number] Cosigned by: [id number] Titration: 08/29/19 15:12 Dose: 600 units/hr, 12 mls/hr Documented by: [id number] Cosigned by: [id number] Admin: 08/29/19 13:25 Dose: 600 units/hr, 12 mls/hr Documented by: [id number] Cosigned by: [id number] Diltiazem HCl 125 mg/ Dextrose 125 mls @ 0 mls/hr IV .Q0M [facility]; Protocol Stop: 09/28/19 12:59 Last Titration: 08/30/19 08:13 Dose: 0 mg/hr, 0 mls/hr Documented by: [id number] Titration: 08/29/19 14:15 Dose: 0 mg/hr, 0 mls/hr Documented by: [id number] Admin: 08/29/19 13:12 Dose: 5 mg/hr, 5 mls/hr Documented by: [id number] Cosigned by: [id number] Magnesium Oxide (Mag-Ox) 400 mg PO [facility] Stop: 09/29/19 08:59 Last Admin: 08/31/19 07:23 Dose: 400 mg Documented by: [id number] Admin: 08/30/19 10:31 Dose: 400 mg Documented by: [id number] Cosigned by: [id number] Metoprolol Tartrate (Lopressor) 25 mg PO BID [facility] Stop: 09/29/19 20:59 Last Admin: 08/31/19 07:22 Dose: 25 mg Documented by: [id number] Admin: 08/30/19 20:08 Dose: 25 mg Documented by: [id number] Morphine Sulfate (Morphine Sulfate) 2 mg IV Q1H PRN PRN Reason: Chest Pain Stop: 09/12/19 15:35 Last Admin: 08/29/19 15:45 Dose: 2 mg Documented by: [id number] Ondansetron HCl (Zofran) 4 mg IV Q6H PRN PRN Reason: Nausea Stop: 09/28/19 17:07 Last Admin: 08/29/19 17:15 Dose: 4 mg Documented by: [id number] Pantoprazole Sodium (Protonix) 40 mg PO [facility] Stop: 09/29/19 08:59 Last Admin: 08/31/19 07:23 Dose: 40 mg Documented by: [id number] Admin: 08/30/19 10:32 Dose: 40 mg Documented by: [id number] Cosigned by: [id number] Terazosin HCl (Hytrin) 1 mg PO [facility] Stop: 09/28/19 20:59 Last Admin: 08/30/19 20:08 Dose: 1 mg Documented by: [id number] Admin: 08/29/19 21:01 Dose: 1 mg Documented by: [id number] Vitamin D (Vitamin D3) 2,000 units PO DAILY [facility] Stop: 09/29/19 08:59 Last Admin: 08/31/19 07:23 Dose: 2,000 units Documented by: [id number] Admin: 08/30/19 10:32 Dose: 2,000 units Documented by: [id number] Cosigned by: [id number] Discontinued Medications Aspirin (Aspirin) 324 mg PO NOW STA Stop: 08/29/19 08:54 Last Admin: 08/29/19 10:59 Dose: 324 mg Documented by: [id number] Diltiazem HCl (Cardizem) 13.25 mg IV NOW STA Stop: 08/29/19 08:14 Last Admin: 08/29/19 08:27 Dose: 13.25 mg Documented by: [id number] Cosigned by: [id number] Diltiazem HCl (Cardizem) 18.55 mg IV NOW STA Stop: 08/29/19 08:24 Last Admin: 08/29/19 08:43 Dose: 18.55 mg Documented by: [id number] Cosigned by: [id number] Diltiazem HCl (Cardizem) 5 mg IV NOW STA Stop: 08/29/19 12:52 Last Admin: 08/29/19 13:08 Dose: 5 mg Documented by: [id number] Cosigned by: [id number] Heparin Sodium/Dextrose () 1 ea IV Q30M [facility]; Protocol Stop: 08/29/19 14:00 Last Admin: 08/29/19 13:28 Dose: Not Given Documented by: [id number] Admin: 08/29/19 13:28 Dose: Not Given Documented by: [id number] Admin: 08/29/19 13:27 Dose: Not Given Documented by: [id number] Admin: 08/29/19 13:27 Dose: Not Given Documented by: [id number] Magnesium Sulfate/Dextrose (Magnesium Sulfate / D5w) 1 gm in 100 mls @ 100 mls/hr IV Q1H [facility] Stop: 08/29/19 12:29 Last Infusion: 08/29/19 11:21 Dose: 0 mls/hr Documented by: [id number] Admin: 08/29/19 10:30 Dose: 100 mls/hr Documented by: [id number] Infusion: 08/29/19 10:30 Dose: 100 mls/hr Documented by: [id number] Admin: 08/29/19 10:00 Dose: 100 mls/hr Documented by: [id number] Infusion: 08/29/19 10:00 Dose: 100 mls/hr Documented by: [id number] Admin: 08/29/19 09:44 Dose: 100 mls/hr Documented by: [id number] Infusion: 08/29/19 09:26 Dose: 100 mls/hr Documented by: [id number] Admin: 08/29/19 08:26 Dose: 100 mls/hr Documented by: [id number] Heparin Sodium (Porcine) 4,000 (units/ Syringe) 4 mls @ 10 mls/min IV ONE ONE Stop: 08/29/19 23:46 Last Admin: 08/29/19 23:50 Dose: 10 mls/min Documented by: [id number] Cosigned by: [id number] Heparin Sodium (Porcine) 2,000 (units/ Syringe) 2 mls @ 10 mls/min IV ONE ONE Stop: 08/30/19 10:21 Last Admin: 08/30/19 10:36 Dose: 10 mls/min Documented by: [id number] Cosigned by: [id number] Heparin Sodium (Porcine) 4,000 (units/ Syringe) 4 mls @ 10 mls/min IV ONE ONE Stop: 08/31/19 06:46 Last Admin: 08/31/19 07:03 Dose: 10 mls/min Documented by: [id number] Cosigned by: [id number] Metoprolol Tartrate (Lopressor) 12.5 mg PO BID [facility] Stop: 09/28/19 20:59 Last Admin: 08/30/19 10:30 Dose: 12.5 mg Documented by: [id number] Cosigned by: [id number] Admin: 08/29/19 21:01 Dose: 12.5 mg Documented by: [id number] Morphine Sulfate (Morphine Sulfate) 2 mg IV ONE PRN PRN Reason: Pain AFTER CARDIOVERSION Stop: 08/29/19 15:00 Last Admin: 08/29/19 14:52 Dose: 2 mg Documented by: [id number] Potassium Chloride (Klor-Con M20) 40 meq PO NOW STA Stop: 08/30/19 02:35 Last Admin: 08/30/19 02:57 Dose: 40 meq Documented by: [id number] Medical Decision Making Differential Diagnosis Differential diagnosis: Etiologies such as cardiac ischemia, aortic dissection, pulmonary embolism, pneumonia, pneumothorax, musculoskeletal, infections, pericarditis, myocarditis, esophageal rupture, gastrointestinal, as well as others were entertained. Medical Records Attestation: I reviewed the patient's medical records. Home Medications Current Medication List: was personally reviewed by me Laboratory Data Attestation: I reviewed the patient's lab results. Result diagrams: 08/31/19 05:45 08/31/19 05:45 Lab Results 08/29/19 08/29/19 08/29/19 Range/Units 08:06 08:06 08:06 WBC 6.63 (4.8-10.8) K/uL RBC 5.37 (4.2-5.4) M/uL Hgb 16.3 H (12.0-16.0) g/dL Hct 48.7 H (37-47) % MCV 90.7 (80-100) fL MCH 30.4 (25-34) pg MCHC 33.5 (32-36) g/dL RDW Std Deviation 45.4 (36.4-46.3) fL RDW Coeff of Ling 13.8 (11.5-14.5) % Plt Count 214 (130-400) K/uL MPV 9.9 (7.4-10.4) fL Immature Gran % (Auto) 0.8 % Neut % (Auto) 60.5 % Lymph % (Auto) 31.2 % [place] % (Auto) 5.6 % Eos % (Auto) 1.4 % Baso % (Auto) 0.5 % Immature Gran # (Auto) 0.05 H (0.00-0.02) K/uL Neut # (Auto) 4.02 (1.4-6.5) K/uL Lymph # (Auto) 2.07 (1.2-3.4) K/uL [place] # (Auto) 0.37 (0.11-0.59) K/uL Eos # (Auto) 0.09 (0-0.5) K/uL Baso # (Auto) 0.03 (0-0.2) K/uL PT 10.3 (9.0-12.0) Seconds INR 1.0 (0.9-1.1) APTT 27.1 (21.0-31.0) Seconds PTT Ratio 1.0 Sodium 138 (136-145) mmol/L Potassium 3.6 (3.5-5.1) mmol/L Chloride 103 (98-107) mmol/L Carbon Dioxide 27 (21-32) mmol/L Anion Gap 8.0 (3-11) BUN 20 H (7-18) mg/dl Creatinine 1.01 (0.6-1.2) mg/dl Est Cr Clr Drug Dosing 32.6 ml/min Est GFR ( Amer) 59.6 Est GFR (Non-Af Amer) 51.4 BUN/Creatinine Ratio 20.1 H (10-20) Glucose 116 H (70-99) mg/dl Calcium 9.2 (8.5-10.1) mg/dl Magnesium 2.3 (1.8-2.4) mg/dl Total Bilirubin 0.4 (0.2-1) mg/dl AST 29 (15-37) U/L ALT 48 (12-78) U/L Alkaline Phosphatase 69 (45-117) U/L Total Creatine Kinase 54 (26-192) U/L CK-MB (CK-2) < 1.0 (0.5-3.6) ng/ml CK/CKMB % Calc TNP Troponin I < 0.015 (0-0.045) ng/ml Total Protein 8.6 H (6.4-8.2) gm/dl Albumin 4.5 (3.4-5.0) gm/dl Globulin 4.1 H (2.5-4.0) gm/dl Albumin/Globulin Ratio 1.1 (0.9-2) Lipase 158 (73-393) U/L TSH 4.100 (0.300-4.500) uIu/ml Imaging Data Radiologist's Impression: Radiology results as stated below per my review and the radiologist's interpretation: XR chest 1V portable CLINICAL HISTORY: Chest pain. COMPARISON STUDY: Chest radiograph April 08, 2019. FINDINGS: Lung volumes are normal. There is no pneumothorax or pleural effusion. There is no consolidation to suggest pneumonia. Note is made of mild cardiomegaly without evidence for pulmonary edema. IMPRESSION: 1. No acute cardiopulmonary findings. 2. Mild cardiomegaly without evidence of pulmonary edema. Electronically signed by: Jaden Orozco M.D. 08/29/2019 8:45 AM ECG Data Attestation: I personally reviewed and interpreted this ECG as follows: Indication: tachycardia Rate (beats per minute): 171 Rhythm: atrial fibrillation (with RVR) Findings: + other (QTC 462); no ST depression and no ST elevation Additional Comments: REPEAT ECG: Atrial fibrillation, rate of 73. No ST elevation or depression. QTC 409. Normal axis. Blood Pressure Blood Pressure Findings: Low blood pressure Blood Pressure Disposition: further management by hospitalist MDM Narrative This is an 84-year-old female who presents emergency department with A. fib with RVR. Patient does not have a history of atrial fibrillation. She was given 4 g of magnesium here in the emergency department and started on Cardizem x2. Patient remains in atrial fibrillation therefore I did discuss the case with the hospitalist service who agreed to admit the patient patient and family were in agreement with the treatment plan. I will note the patient's troponin white blood cell count were normal here. Impression & Plan Atrial fibrillation with RVR Critical Care Time Critical Care Time: Yes Total Critical Care Time: 90 I have personally spent 90 minutes of critical care time in the direct manage ment of this patient. This includes bedside care, interpretation of diagnostic studies, and testing, discussion with consultants, patient, and family members, and other required patient management activities. This 90 minutes is in excess of all separately billable procedures. Discharge Plan Visit Data *Final* Discharge Date/Time: 08/29/19 11:15 Chief Complaint: Tachycardia Stated Complaint: TACHYCARDIA, HTN ED Provider: Tahir Au Discharge Problem: Atrial fibrillation with RVR Patient Disposition: Admitted As Inpatient Discharge Instructions Interventions: ED Discharge Assessment Last Done: 08/29/19 11:15 The scribe's documentation has been prepared under my direction and personally reviewed by me in its entirety. I confirm that the note above accurately reflects all work, treatment, procedures, and medical decision making performed by me.
[2019-08-29] MEDS ORDERED: ONDANSETRON INJ 2 MG/ML 2 ML VIAL IV PRN (17:08)
[2019-08-29] MEDS: TERAZOSIN HCL 1 MG CAP PO SCH (21:01)
[2019-08-29] MEDS: METOPROLOL TARTRATE 25 MG TAB PO SCH (21:01)
[2019-08-29 22:18] LABS: Partial Thromboplastin Ratio 1.2; Partial Thromboplastin Time 31.2 Seconds (21.0-31.0)
[2019-08-29] MEDS ORDERED: HEPARIN IV BOLUS 4,000 UNITS in SYRINGE 0 ML IV ONE (23:45)
[2019-08-30] MEDS ORDERED: POTASSIUM CHLORIDE 20 MEQ TABCR PO STA (02:34)
[2019-08-30 03:27] LABS: Basophils # (auto) 0.02 K/uL (0-0.2); Basophils % (auto) 0.2 %; Eosinophils # (auto) 0.11 K/uL (0-0.5); Eosinophils % (auto) 1.1 %; Hematocrit (blood only) 40.3 % (37-47); Hemoglobin 13.3 g/dL (12.0-16.0); Immature Granulocytes # (auto) 0.04 K/uL (0.00-0.02); Immature Granulocytes % (auto) 0.4 %; Lymphocytes # (auto) 2.29 K/uL (1.2-3.4); Lymphocytes % (auto) 23.9 %; Mean Corpuscular Hemoglobin 29.8 pg (25-34); Mean Corpuscular Volume 90.4 fL (80-100); Mean Platelet Volume 9.6 fL (7.4-10.4); Monocytes # (auto) 0.44 K/uL (0.11-0.59); Monocytes % (auto) 4.6 %; Neutrophils % (auto) 69.8 %; Platelet Count 213 K/uL (130-400); RDW Coefficient of Variation 13.9 % (11.5-14.5); Red Blood Count 4.46 M/uL (4.2-5.4)
[2019-08-30 03:28] LABS: BUN Creatinine Ratio 18.9 (10-20); Calcium 7.7 mg/dl (8.5-10.1); Creatinine Clr Calc Pharmacy 34.3 ml/min; Est GFR (African American) 63.4; Est GFR (Non-African American) 54.7; Magnesium 2.8 mg/dl (1.8-2.4); Potassium 4.2 mmol/L (3.5-5.1)
[2019-08-30 07:40] LABS: Partial Thromboplastin Ratio 1.5
[2019-08-30] MEDS ORDERED: NON-FORMULARY MEDICATION (Riboflavin (Vitamin B2) [Vitamin B-2] 400 MG) PO SCH (09:00)
[2019-08-30] MEDS ORDERED: HEPARIN IV BOLUS 2,000 UNITS in SYRINGE 0 ML IV ONE (10:20)
[2019-08-30] MEDS: METOPROLOL TARTRATE 25 MG TAB PO SCH ×2 (10:30→20:08)
[2019-08-30] MEDS: MAGNESIUM OXIDE 400 MG TAB PO SCH (10:31)
[2019-08-30] MEDS: PANTOprazole 40 MG TAB PO SCH (10:32)
[2019-08-30] MEDS: CHOLECALCIFEROL 1,000 UNITS TAB PO SCH (10:32)
--- NOTE | 2019-08-30 12:25 | Cardiology Progress Note ---
Date of Service August 30, 2019 Assessment & Plan (1) Atrial fibrillation with RVR: The patient has maintained normal sinus rhythm since yesterday afternoon however, she did have a burst of atrial fibrillation late yesterday which lasted for several seconds. I started her on a fairly low dose of metoprolol because of a history of bradycardia when she was taken Inderal for migraines. Her heart rates have been adequate and I am going to increase her metoprolol to 25 mg twice daily. She should remain on a hall monitor for at least another 24 hours. Subjective The patient had an uneventful night. She converted to normal sinus rhythm yesterday afternoon. She had one burst of the atrial fibrillation which lasted for several seconds late yesterday. She has no new cardiac complaints today. Review of Systems Review of Systems: All systems reviewed & are unremarkable except as noted in HPI & below Nothing additional to add. Physical Exam Physical Exam: General: no acute distress and stated age Head: normocephalic, no masses, lesions, tenderness or abnormalities Eyes: conjunctiva are pink and non-injected, sclera clear Neck: supple, no adenopathy, no bruits, normal jugular venous pulse, no hepatojugular reflux Chest: normal shape and normal respiratory effort Lungs: clear to auscultation and percussion Cardiac Exam: - regular rate & rhythm, no murmurs gallops or rubs - normal S1, normal S2 Pulses: 2(+) throughout Abdomen: abdomen soft, non-tender, no abnormal masses and no hepatosplenomegaly Musculoskeletal: no gait disturbance, no joint inflammation, no deforming arthritis Extremities: no edema and no cyanosis Neuro: grossly normal exam Results & Data Vital Signs (Past 12 Hours) Vital Signs Temp Pulse Pulse Resp BP BP Pulse Ox 08/30/19 11:26 36.4 C L 56 L 16 128/74 96 08/30/19 10:04 59 L 08/30/19 07:58 36.6 C 60 17 143/66 H 97 08/30/19 07:43 37.4 C 68 18 135/75 94 08/30/19 05:07 36.9 C 59 L 18 120/76 95 Laboratory Results Laboratory Results - last 24 hr 08/29/19 08/29/19 08/29/19 14:11 20:04 21:59 WBC RBC Hgb Hct MCV MCH MCHC RDW Std Deviation RDW Coeff of Ling Plt Count MPV Immature Gran % (Auto) Neut % (Auto) Lymph % (Auto) [place] % (Auto) Eos % (Auto) Baso % (Auto) Immature Gran # (Auto) Neut # (Auto) Lymph # (Auto) [place] # (Auto) Eos # (Auto) Baso # (Auto) APTT 31.2 H PTT Ratio 1.2 Sodium Potassium Chloride Carbon Dioxide Anion Gap BUN Creatinine Est Cr Clr Drug Dosing Est GFR ( Amer) Est GFR (Non-Af Amer) BUN/Creatinine Ratio Glucose Calcium Magnesium Troponin I 0.020 < 0.015 08/30/19 08/30/19 08/30/19 02:46 02:46 07:14 WBC 9.60 RBC 4.46 Hgb 13.3 D Hct 40.3 MCV 90.4 MCH 29.8 MCHC 33.0 RDW Std Deviation 46.0 RDW Coeff of Ling 13.9 Plt Count 213 MPV 9.6 Immature Gran % (Auto) 0.4 Neut % (Auto) 69.8 Lymph % (Auto) 23.9 [place] % (Auto) 4.6 Eos % (Auto) 1.1 Baso % (Auto) 0.2 Immature Gran # (Auto) 0.04 H Neut # (Auto) 6.70 H Lymph # (Auto) 2.29 [place] # (Auto) 0.44 Eos # (Auto) 0.11 Baso # (Auto) 0.02 APTT 42.0 H PTT Ratio 1.5 Sodium 136 Potassium 4.2 D Chloride 105 Carbon Dioxide 24 Anion Gap 7.0 BUN 18 Creatinine 0.96 Est Cr Clr Drug Dosing 34.3 Est GFR ( Amer) 63.4 Est GFR (Non-Af Amer) 54.7 BUN/Creatinine Ratio 18.9 Glucose 122 H Calcium 7.7 L D Magnesium 2.8 H Troponin I Medications Administered Current Inpatient Medications Acetaminophen (Tylenol) 650 mg PO Q4H PRN PRN Reason: Pain or Fever Stop: 09/28/19 11:41 Heparin Sodium/Dextrose (Heparin Sodium/Dextrose) 25,000 units in 500 mls @ 15 mls/hr IV .Q24H [facility]; Protocol Stop: 09/28/19 11:41 Last Titration: 08/30/19 08:27 Dose: 750 units/hr, 15 mls/hr Documented by: Diltiazem HCl 125 mg/ Dextrose 125 mls @ 0 mls/hr IV .Q0M [facility]; Protocol Stop: 09/28/19 12:59 Last Titration: 08/30/19 08:13 Dose: Infused Documented by: Magnesium Oxide (Mag-Ox) 400 mg PO QAM [facility] Stop: 09/29/19 08:59 Last Admin: 08/30/19 10:31 Dose: 400 mg Documented by: Metoprolol Tartrate (Lopressor) 25 mg PO BID [facility] Stop: 09/29/19 20:59 Morphine Sulfate (Morphine Sulfate) 2 mg IV Q1H PRN PRN Reason: Chest Pain Stop: 09/12/19 15:35 Last Admin: 08/29/19 15:45 Dose: 2 mg Documented by: Nitroglycerin (Nitrostat) 0.4 mg SL PRN PRN PRN Reason: Chest Pain Stop: 09/28/19 15:35 Ondansetron HCl (Zofran) 4 mg IV Q6H PRN PRN Reason: Nausea Stop: 09/28/19 17:07 Last Admin: 08/29/19 17:15 Dose: 4 mg Documented by: Pantoprazole Sodium (Protonix) 40 mg PO QAM [facility] Stop: 09/29/19 08:59 Last Admin: 08/30/19 10:32 Dose: 40 mg Documented by: Terazosin HCl (Hytrin) 1 mg PO HS [facility] Stop: 09/28/19 20:59 Last Admin: 08/29/19 21:01 Dose: 1 mg Documented by: Vitamin D (Vitamin D3) 2,000 units PO DAILY [facility] Stop: 09/29/19 08:59 Last Admin: 08/30/19 10:32 Dose: 2,000 units Documented by:
--- NOTE | 2019-08-30 13:19 | Hospitalist Progress Note ---
Date of Service August 30, 2019 Assessment & Plan (1) Atrial fibrillation with RVR: Present on admission with palpitation associated with dizziness and chest tightness Found to be in a-fib RVR in the ER with HR: 127 up to 170 IV cardizemx2 given in the ER that dropped HR in the 70's Cardiology on board Was started on Lopressor 12.5mg BID by cardiology Converted to NSR since yesterday and HR has been stable in the 50's. CHADS2-VASC 4 Continue IV heparin drip Lopressor increased to 25mg BID Continue monitor in tele ECHO showed LV hyperdynamic, no wall motion abnormality with EF 65-70 (2) Hypertension: BP stable Continue terazosin Metoprolol 25mg adding Continue monitor BP (3) Migraine headache: Continue to hold amitriptyline, imitrex for now (4) GERD (gastroesophageal reflux disease): Continue PPI DVT Prophylaxis On Heparin IV Disposition Continue Monitor in tele Subjective Pt was seen and examined Lying in bed with no distress Pt said that she was having a lot of abdominal pain early this morning She said that after she passed gas, her abdominal pain improves She said that she does not have any palpitation She said that she is very active and still driving Se said that she has been walking around with no discomfort Her HR dropped for a brief second in the 30's last night and had a burst of Afib on monitor Denies any chest pain, palpitation, dizziness and SOB Physical Exam Physical Exam: General- No acute distress Head- atraumatic Eyes- PERRL, EOMI, ENT- oropharynx clear Neck- supple, no JVD Lungs- clear to auscultation Heart- +bradycardia, no murmur Abdomen- normal bowel sounds, soft, nontender Extremities- no calf tenderness Neuro- alert, oriented x 3; PERRL, EOMI; no facial palsy; no dysarthria Skin- warm & dry Results & Data Vital Signs (Past 12 Hours) Vital Signs Temp Pulse Pulse Resp BP BP Pulse Ox 08/30/19 11:26 36.4 C L 56 L 16 128/74 96 08/30/19 10:04 59 L 08/30/19 07:58 36.6 C 60 17 143/66 H 97 08/30/19 07:43 37.4 C 68 18 135/75 94 08/30/19 05:07 36.9 C 59 L 18 120/76 95 (1) Migraine headache Intractability: not intractable Migraine type: without aura Status migrainosus presence: without status migrainosus Qualified Code(s): G43.009 - Migraine without aura, not intractable, without status migrainosus (2) Hypertension Hypertension type: essential hypertension Qualified Code(s): I10 - Essential (primary) hypertension
[2019-08-30 14:52] LABS: Partial Thromboplastin Ratio 1.8; Partial Thromboplastin Time 50.1 Seconds (21.0-31.0)
[2019-08-30] MEDS: TERAZOSIN HCL 1 MG CAP PO SCH (20:08)
[2019-08-30] MEDS: HEPARIN SODIUM/DEXTROSE 25,000 UNITS/500 ML BAG IV SCH (22:04)
[2019-08-31 06:18] LABS: Hematocrit (blood only) 41.4 % (37-47); Hemoglobin 13.6 g/dL (12.0-16.0); Mean Corpuscular Hemoglobin 29.8 pg (25-34); Mean Corpuscular Hgb Conc 32.9 g/dL (32-36); Mean Corpuscular Volume 90.8 fL (80-100); Mean Platelet Volume 9.8 fL (7.4-10.4); Platelet Count 197 K/uL (130-400); RDW Standard Deviation 46.6 fL (36.4-46.3); Red Blood Count 4.56 M/uL (4.2-5.4); White Blood Count 7.99 K/uL (4.8-10.8)
[2019-08-31 06:33] LABS: Partial Thromboplastin Ratio 1.4
[2019-08-31] MEDS ORDERED: HEPARIN IV BOLUS 4,000 UNITS in SYRINGE 0 ML IV ONE (06:45)
[2019-08-31 06:50] LABS: BUN Creatinine Ratio 20.4 (10-20); Calcium 8.1 mg/dl (8.5-10.1); Creatinine Clr Calc Pharmacy 32.3 ml/min; Est GFR (African American) 58.9; Est GFR (Non-African American) 50.8; Potassium 4.5 mmol/L (3.5-5.1)
[2019-08-31] MEDS: METOPROLOL TARTRATE 25 MG TAB PO SCH (07:22)
[2019-08-31] MEDS: PANTOprazole 40 MG TAB PO SCH (07:23)
[2019-08-31] MEDS: MAGNESIUM OXIDE 400 MG TAB PO SCH (07:23)
[2019-08-31] MEDS: CHOLECALCIFEROL 1,000 UNITS TAB PO SCH (07:23)
[2019-08-31 13:18] LABS: Partial Thromboplastin Ratio 2.6
[2019-08-31 13:29] LABS: Partial Thromboplastin Time 70.6 Seconds (21.0-31.0)
--- NOTE | 2019-08-31 14:18 | Cardiology Progress Note ---
Date of Service August 31, 2019 Assessment & Plan (1) Atrial fibrillation with RVR: (2) Thoracic aortic aneurysm: The patient has maintained sinus rhythm and her heart rates are adequate on the beta-jolene dose. In February she had diverticulitis without significant bleeding and I think we can switch her from heparin to Eliquis today. From our standpoint the patient can be discharged home and I will arrange follow-up with our practice. Subjective The patient had an uneventful night. She is maintaining sinus rhythm. She is anxious to return home Review of Systems Review of Systems: All systems reviewed & are unremarkable except as noted in HPI & below Nothing additional to add Physical Exam Physical Exam: General: no acute distress and stated age Head: normocephalic, no masses, lesions, tenderness or abnormalities Eyes: conjunctiva are pink and non-injected, sclera clear Neck: supple, no adenopathy, no bruits, normal jugular venous pulse, no hepatojugular reflux Chest: normal shape and normal respiratory effort Lungs: clear to auscultation and percussion Cardiac Exam: - regular rate & rhythm, no murmurs gallops or rubs - normal S1, normal S2 Pulses: 2(+) throughout Abdomen: abdomen soft, non-tender, no abnormal masses and no hepatosplenomegaly Musculoskeletal: no gait disturbance, no joint inflammation, no deforming arthritis Extremities: no edema and no cyanosis Neuro: grossly normal exam Results & Data Vital Signs (Past 12 Hours) Vital Signs Temp Pulse Pulse Resp BP Pulse Ox 08/31/19 11:58 37 C 58 L 18 131/65 96 08/31/19 08:00 60 08/31/19 07:39 37 C 66 18 124/74 94 08/31/19 03:51 36.9 C 59 L 18 128/75 94 Laboratory Results Laboratory Results - last 24 hr 08/30/19 08/31/19 08/31/19 14:15 05:45 05:45 WBC 7.99 RBC 4.56 Hgb 13.6 Hct 41.4 MCV 90.8 MCH 29.8 MCHC 32.9 RDW Std Deviation 46.6 H RDW Coeff of Ling 14.0 Plt Count 197 MPV 9.8 APTT 50.1 H* PTT Ratio 1.8 Sodium 137 Potassium 4.5 Chloride 106 Carbon Dioxide 25 Anion Gap 6.0 BUN 21 H Creatinine 1.02 Est Cr Clr Drug Dosing 32.3 Est GFR ( Amer) 58.9 Est GFR (Non-Af Amer) 50.8 BUN/Creatinine Ratio 20.4 H Glucose 94 Calcium 8.1 L 08/31/19 08/31/19 05:45 12:29 WBC RBC Hgb Hct MCV MCH MCHC RDW Std Deviation RDW Coeff of Ling Plt Count MPV APTT 39.0 H 70.6 H* PTT Ratio 1.4 2.6 Sodium Potassium Chloride Carbon Dioxide Anion Gap BUN Creatinine Est Cr Clr Drug Dosing Est GFR ( Amer) Est GFR (Non-Af Amer) BUN/Creatinine Ratio Glucose Calcium Medications Administered Current Inpatient Medications Acetaminophen (Tylenol) 650 mg PO Q4H PRN PRN Reason: Pain or Fever Stop: 09/28/19 11:41 Apixaban (Eliquis) 2.5 mg PO BID [facility] Stop: 09/30/19 20:59 Diltiazem HCl 125 mg/ Dextrose 125 mls @ 0 mls/hr IV .Q0M [facility]; Protocol Stop: 09/28/19 12:59 Last Titration: 08/30/19 08:13 Dose: Infused Documented by: Magnesium Oxide (Mag-Ox) 400 mg PO [facility] Stop: 09/29/19 08:59 Last Admin: 08/31/19 07:23 Dose: 400 mg Documented by: Metoprolol Tartrate (Lopressor) 25 mg PO BID [facility] Stop: 09/29/19 20:59 Last Admin: 08/31/19 07:22 Dose: 25 mg Documented by: Morphine Sulfate (Morphine Sulfate) 2 mg IV Q1H PRN PRN Reason: Chest Pain Stop: 09/12/19 15:35 Last Admin: 08/29/19 15:45 Dose: 2 mg Documented by: Nitroglycerin (Nitrostat) 0.4 mg SL PRN PRN PRN Reason: Chest Pain Stop: 09/28/19 15:35 Ondansetron HCl (Zofran) 4 mg IV Q6H PRN PRN Reason: Nausea Stop: 09/28/19 17:07 Last Admin: 08/29/19 17:15 Dose: 4 mg Documented by: Pantoprazole [facility]ix) [facility] [place] Stop: 09/29/19 08:59 Last Admin: 08/31/19 07:23 Dose: 40 mg Documented by: Terazosin HCl (Hytrin) 1 mg PO [facility] Stop: 09/28/19 20:59 Last Admin: 08/30/19 20:08 Dose: 1 mg Documented by: Vitamin D (Vitamin D3) 2,000 units PO DAILY [facility] Stop: 09/29/19 08:59 Last Admin: 08/31/19 07:23 Dose: 2,000 units Documented by:
[2019-08-31] MEDS ORDERED: APIXABAN 2.5 MG TAB PO SCH ×2 (15:00→16:15)
--- NOTE | 2019-08-31 15:25 | Hospitalist Progress Note ---
Date of Service August 31, 2019 Assessment & Plan (1) Atrial fibrillation with RVR: Present on admission with palpitation associated with dizziness and chest tightness Found to be in a-fib RVR in the ER with HR: 127 up to 170 IV cardizemx2 given in the ER that dropped HR in the 70's Cardiology on board Metoprolol increased to 25mg BID, Will continue current dose on discharge Remained on NSR and HR has been stable in the 50's. CHADS2-VASC 4 On IV heparin drip, will transition to Eliquis BID Major side effect about Eliquis discussed with patient such as bleeding (Hematuria and blood in stools) ECHO showed LV hyperdynamic, no wall motion abnormality with EF 65-70 Follow up with cardiology outpatient (2) Hypertension: BP stable Continue terazosin Continue Metoprolol 25mg Continue monitor BP (3) Migraine headache: Resume amitriptyline and imitrex on discharge (4) GERD (gastroesophageal reflux disease): Continue PPI DVT Prophylaxis On Heparin IV/transition to Eliquis Disposition Discharge home today Follow up with your primary care provider Dr. Delcid on 09/04 @ 12:45 PM Follow up with cardiology Dr. Pelletier on 09/17 @ 12:00 Subjective Pt was seen and examined Lying in bed with no distress Pt said that she feels fine She said that she walked around with no distress Denies any chest pain, palpitation, dizziness and SOB Physical Exam Physical Exam: General- No acute distress Head- atraumatic Eyes- PERRL, EOMI, ENT- oropharynx clear Neck- supple, no JVD Lungs- clear to auscultation Heart- +bradycardia, no murmur Abdomen- normal bowel sounds, soft, nontender Extremities- no calf tenderness Neuro- alert, oriented x 3; PERRL, EOMI; no facial palsy; no dysarthria Skin- warm & dry Results & Data Vital Signs (Past 12 Hours) Vital Signs Temp Pulse Pulse Resp BP Pulse Ox 08/31/19 11:58 37 C 58 L 18 131/65 96 08/31/19 08:00 60 08/31/19 07:39 37 C 66 18 124/74 94 08/31/19 03:51 36.9 C 59 L 18 128/75 94 (1) Migraine headache Intractability: not intractable Migraine type: without aura Status migrainosus presence: without status migrainosus Qualified Code(s): G43.009 - Migraine without aura, not intractable, without status migrainosus (2) Hypertension Hypertension type: essential hypertension Qualified Code(s): I10 - Essential (primary) hypertension
--- NOTE | 2019-09-01 23:03 | Discharge Summary ---
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 Patient reports this morning woke up at 6:30 AM with palpitations and heart racing with associated chest tightness and dizziness. Reports took her blood pressure at home with automatic cuff and SBP was in the 160s and heart rate was recorded at 142. Denies any syncope, shortness of breath. Denies any recent illness. Hx diverticulitis with some rectal bleeding in 02/2019. Had stable hemoglobins during that admission. Patient denies any recurrent rectal bleeding, melena. Denies epistaxis, hematuria. Patient denies any falls. Denies alcohol use and reports minimal caffeine use. History of migraine headaches and uses amitriptyline at bedtime and Imitrex as needed. Denies fever/chills, diaphoresis, N/V/D/C, vision changes, neck pain, SOB, orthopnea, cough, sore throat, choking, otalgia, rhinorrhea, abdominal pain, paresthesias, weakness, extremity weakness, extremity edema, rashes, urinary symptoms. History echo 03/02/2019: EF 65-70%, grade 1 diastolic dysfunction, mild aortic regurgitation, top normal ascending aorta at 4 cm Presented to ER was found to be in atrial fibrillation RVR with rate up to 170s. Was given bolus diltiazem with rate down to 70. Admission Exam Per Admitting Provider General: no acute distress, WDWN Head: normocephalic, atraumatic Eyes: PERRL, EOM's intact, conjunctiva non-injected, anicteric ENT: normal inspection external ears, nose, mucous membranes moist Neck: supple, trachea midline Lungs: clear, no respiratory distress, no wheezing/rhonchi/rales CV: irregularly irregular, rate 110, no pretibial edema Abd: normal BS, soft, non-tender Ext: no cyanosis, no calf tenderness Neuro: A&O x 3, no focal deficits noted, normal affect Skin: warm, dry Principal Diagnosis Atrial fibrillation with RVR Hypertension Migraine Headache GERD Discharge Exam General- No acute distress Head- atraumatic Eyes- PERRL, EOMI, ENT- oropharynx clear Neck- supple, no JVD Lungs- clear to auscultation Heart- +bradycardia, no murmur Abdomen- normal bowel sounds, soft, nontender Extremities- no calf tenderness Neuro- alert, oriented x 3; PERRL, EOMI; no facial palsy; no dysarthria Skin- warm & dry Discharge Data Allergies Allergy/AdvReac Type Severity Reaction Status Date / Time propoxyphene Allergy Mild Unknown Verified 08/29/19 08:30 Bactrim Allergy Unknown RASH Verified 10/08/17 21:39 erythromycin base Allergy Unknown Unknown Verified 08/29/19 08:30 metronidazole Allergy Unknown ? Verified 08/29/19 08:30 Penicillins Allergy Unknown Unknown Verified 08/29/19 08:30 sulfamethoxazole Allergy Unknown RASH Verified 08/29/19 08:30 trimethoprim Allergy Unknown RASH Verified 08/29/19 08:30 ciprofloxacin [From Cipro] Allergy Unknown Verified 08/29/19 13:00 enalapril AdvReac Intermediate tightness Unverified 08/29/19 08:30 in ankles topiramate [From Topamax] AdvReac Intermediate fingers Unverified 08/29/19 08:30 numb codeine AdvReac Unknown SICK TO Verified 08/29/19 08:30 STOMACH fentanyl AdvReac Unknown SEVERE Verified 08/29/19 08:30 N&V;DIZZY Quinolones AdvReac Unknown N&V Verified 08/29/19 08:30 clindamycin AdvReac Nausea Unverified 08/29/19 08:30 tramadol [From Ultram] AdvReac Unknown Unverified 08/29/19 08:30 Consultations 08/29/19 08:43 Consult Cardiology Stat 08/29/19 08:52 ED Decision to Admit Stat 08/29/19 11:42 Consult Cardiology Routine Consult Case Management - Discharge Planning Routine Ordered Studies XR chest 1V portable CLINICAL HISTORY: Chest pain. COMPARISON STUDY: Chest radiograph April 08, 2019. FINDINGS: Lung volumes are normal. There is no pneumothorax or pleural effusion. There is no consolidation to suggest pneumonia. Note is made of mild cardiomegaly without evidence for pulmonary edema. IMPRESSION: 1. No acute cardiopulmonary findings. 2. Mild cardiomegaly without evidence of pulmonary edema. Electronically signed by: Jaden Orozco M.D. 08/29/2019 8:45 AM Dictated: 10/843 Transcribed: 08/29/19843 Hospital Course (1) Atrial fibrillation with RVR: Present on admission with palpitation associated with dizziness and chest tightness Found to be in a-fib RVR in the ER with HR: 127 up to 170 IV cardizemx2 given in the ER that dropped HR in the 70's Cardiology on board Metoprolol increased to 25mg BID, Will continue current dose on discharge Remained on NSR and HR has been stable in the 50's. CHADS2-VASC 4 On IV heparin drip, will transition to Eliquis BID Major side effect about Eliquis discussed with patient such as bleeding (Hematuria and blood in stools) ECHO showed LV hyperdynamic, no wall motion abnormality with EF 65-70 Follow up with cardiology outpatient (2) Hypertension: BP stable Continue terazosin Continue Metoprolol 25mg Continue monitor BP (3) Migraine headache: Resume amitriptyline and imitrex on discharge (4) GERD (gastroesophageal reflux disease): Continue PPI DVT Prophylaxis On Heparin IV/transition to Eliquis Disposition Discharge home today Follow up with your primary care provider Dr. Delcid on 09/04 @ 12:45 PM Follow up with cardiology Dr. Pelletier on 09/17 @ 12:00 Total Time Total Time Spent Total Time Spent (In Minutes): 35 minutes Total Time Includes: Examination of the Patient, Discharge Planning, Medication Reconciliation, Communication With Other Providers and Other Discharge Plan Discharge Items Patient Disposition: Home - Self-Care Reason For Visit: A-FIB, RVR Discharge Diagnosis: Atrial fibrillation with RVR Hypertension Migraine Headache GERD Activity: Resume your previous activity Activity Comment: As tolerated Non-emergency contact: Primary Care Provider and Power And Recovery Supervisor Call non-emergency contact if: you have any medication questions Follow-up/Referrals: Umm Thompson MD [Primary Care Provider] - Diet: Heart Healthy Addtl Attending Provider Instructions: Follow up with your primary care provider Dr. Delcid on 09/04 @ 12:45 PM Follow up with cardiology Dr. Pelletier on 09/17 @ 12:00 Fall precaution Monitor for sign of abnormal bleeding (Blood in urine or stools) Medication Instructions: Eliquis Your condition is typically treated with an anticoagulant. Anticoagulants will thin your blood to help prevent new clots and stroke You should take her medication exactly as directed. Never skip a dose. Never take a double dose. If you miss a dose, take it as soon as you remember. Avoid NSAIDs (Motrin, Aleve, Naproxen, Ibuprofen, Advil, Meloxicam,..) due to risks of bleeding Call your Primary Care doctor if you experience any of the following: Swelling or Pain in your leg Sudden, continuous pain deep in a muscle Pain that worsens when you are active or when you stand still for a long time Chest Pain Sudden Shortness of Breath Rapid or pounding heart beat Fainting Dizziness Cough with blood or bloody sputum Sweating more than normal Bruises Heavy or uncontrolled bleeding Blood in your urine, stool or vomit Black or tarry stools It is important for you to keep your follow up appointments with your medical provider. Pending Studies at Discharge: No Stand-Alone Forms: My [facility], Smoking Cessation Medications and DC Order Prescriptions: New metoprolol tartrate 25 mg Tablet 25 mg PO BID 30 Days Qty: 60 RF: 0 Eliquis 2.5 mg Tablet 2.5 mg PO BID 30 Days Qty: 60 RF: 0 Continued clotrimazole-betamethasone 1-0.05 % cream 1 appln TOP .COMPLEX Qty: 15 RF: 3 sumatriptan succinate 100 mg tablet 100 mg PO DAILY PRN (Reason: Migraine Headache) RF: 0 omeprazole 40 mg capsule,delayed release(DR/EC) 40 mg PO QAM RF: 0 Prolia 60 mg/mL Syringe 1 dose SUBCUT .TWICE A YEAR RF: 0 riboflavin (vitamin B2) [Vitamin B-2] 100 mg Tablet 400 mg PO QAM RF: 0 terazosin 1 mg capsule 1 mg PO HS RF: 0 magnesium oxide 400 mg (241.3 mg magnesium) tablet 400 mg PO QAM RF: 0 amitriptyline 10 mg tablet 10 mg PO HS RF: 0 cyclobenzaprine 5 mg tablet 5 mg PO HS RF: 0 cholecalciferol (vitamin D3) [Vitamin D3] 2,000 unit Tablet 2,000 unit PO DAILY RF: 0 Discharge Orders: Discharge Order (Routine); Ordered 08/31/19 Ordered By: Leanne Pineda Admission Data Admit Date/Time: 08/29/19 10:16 Attending Provider: Leanne Pineda Admit Provider: Stephanie Hernandez Primary Care Provider: Umm Thompson Other Providers: Bacilio Lopez ; Leanne Pineda ; Stephanie Hernandez Other Interventions: Discharge Summary Assessment (RN) Last Done: 08/31/19 16:12 DC Date/Time DO NOT enter until pt leaves facility: 08/31/19 17:41
== END 2019-08-31 17:41 | disposition home or self-care (01) | DRG 310 ==
LOC: ED 07:47 → 2E 10:16 → SUATTDRO 10:16 → 2E 11:15

== ENCOUNTER 2020-02-02 01:53 | Inpatient (IN) ==
[2020-02-02] MEDS ORDERED: KETOROLAC 30 MG/ML VIAL IV PRN (02:25)
[2020-02-02 02:32] LABS: Basophils # (auto) 0.01 K/uL (0-0.2); Basophils % (auto) 0.1 %; Eosinophils # (auto) 0.08 K/uL (0-0.5); Eosinophils % (auto) 0.7 %; Hematocrit (blood only) 42.5 % (37-47); Immature Granulocytes # (auto) 0.03 K/uL (0.00-0.02); Immature Granulocytes % (auto) 0.3 %; Lymphocytes # (auto) 1.61 K/uL (1.2-3.4); Lymphocytes % (auto) 13.5 %; Mean Corpuscular Hemoglobin 30.6 pg (25-34); Mean Corpuscular Hgb Conc 32.9 g/dL (32-36); Mean Corpuscular Volume 92.8 fL (80-100); Mean Platelet Volume 9.9 fL (7.4-10.4); Monocytes # (auto) 0.98 K/uL (0.11-0.59); Monocytes % (auto) 8.2 %; Neutrophils # (auto) 9.21 K/uL (1.4-6.5); Neutrophils % (auto) 77.2 %; Platelet Count 193 K/uL (130-400); RDW Coefficient of Variation 13.3 % (11.5-14.5); RDW Standard Deviation 45.1 fL (36.4-46.3); Red Blood Count 4.58 M/uL (4.2-5.4); White Blood Count 11.92 K/uL (4.8-10.8)
[2020-02-02 02:38] LABS: Appearance Urine Clear (Clear); Bacteria Urine Automated Negative (Negative); Bilirubin Urine Negative (Negative); Blood Urine Negative (Negative); Color Urine Yellow; Epithelial Cell Urine Auto >30 /lpf (0-5); Glucose Urine UA Negative (Negative); Ketones Urine Negative (Negative); Leukocyte Esterase Urine 2+ (Negative); Nitrite Urine Negative (Negative); Protein Urine Negative (Negative); RBC Urine Automated 0-4 /hpf (0-4); Specific Gravity Urine 1.012 (1.000-1.030); Urobilinogen Urine Negative (Negative); pH Urine 6.5 (4.5-7.5)
[2020-02-02 02:56] LABS: Albumin Globulin Ratio 1.1 (0.9-2); Albumin Level 4.1 gm/dl (3.4-5.0); Calcium 9.4 mg/dl (8.5-10.1); Creatinine Clr Calc Pharmacy 35.5 ml/min; Est GFR (Non-African American) 59.5; Globulin 3.9 gm/dl (2.5-4.0)
[2020-02-02] MEDS ORDERED: SODIUM CHLORIDE 0.9% 500 ML IV ONE (03:05)
--- NOTE | 2020-02-02 03:49 | Emergency Department Note ---
Impression & Plan Acute cholecystitis ED Provider Note NAME: ISMAEL MONTANA AGE: 85 SEX: F ARRIVES VIA: Walk-In INFORMANT: Patient ED PROVIDER(S): Lurdes Funes DO CHIEF COMPLAINT: Right upper quadrant abdominal pain and right flank pain. PLAN: Disposition: The patient will be admitted by Dr. Lazo from surgery Condition: Fair MEDICAL DECISION MAKING: This is an 85-year-old female patient who presents to the emergency department with right flank pain and nausea. The patient thought that she may be suffering from another episode of a kidney stone. She had a similar episode approximately 10 years ago. The patient was unable to sleep because of the pain and got no relief from Tylenol. On evaluation here in the emergency department, the patient's pain is reproducible with palpation in the right upper quadrant of the abdomen and right flank. Ultrasound shows evidence of a thickened gallbladder wall along with cholelithiasis and sludge. I discussed the case with Dr. Lazo and she will evaluate the patient for further management. Triage Nursing notes reviewed and agree them. Prior medical records reviewed Vital Signs: reviewed and unremarkable Differential diagnosis: Cholecystitis; pyelonephritis; ureteral calculi; diverticulitis; colitis ER treatment provided: IV Toradol IV normal saline Diagnostics interpreted by me: ECG: Sinus bradycardia at a rate of 57. No ischemia or ectopy. No ST segment elevation. Cardiac Monitoring: Normal sinus rhythm at a rate of 62. Laboratory studies: See below Imaging studies: As per stat rad: Ultrasound of the gallbladder: Cholelithiasis and sludge with gallbladder wall thickening and positive sonographic Hamilton sign. Correlate clinically regarding cholecystitis. Normal caliber common bile duct. A 2.9 cm right renal cyst HPI: 85/F arrives for evaluation of right upper quadrant and right flank pain. The patient developed right flank pain and nausea around 7 PM this evening. She had no episodes of vomiting. The patient thought that she may be suffering from a kidney stone. Her last episode which was similar to this was approximately 10 years ago. She tried taking Tylenol for the pain but got no relief. She was unable to sleep. The patient explains that she could not get comfortable. She denies any specific urinary symptoms, constipation or diarrhea. ROS: See above HPI for pertinent positives & negatives. A total of 10 systems reviewed and were otherwise negative. PAST MEDICAL HISTORY:See Below PAST SURGICAL HISTORY:See Below FAMILY HISTORY:See Below SOCIAL HISTORY:See Below HOME MEDICATIONS:See list ALLERGIES:See list VITALS:Stable PHYSICAL EXAMINATION: HEENT: Head - normocephalic and atraumatic Pupils are equal, round, and reactive to light. Extraocular eye muscles are intact, and sclera are anicteric. Nose - moist nasal mucosa without discharge. Mouth - moist buccal mucosa. Oropharynx is nonerythematous and there is no tonsillar exudate or edema noted. Neck: Supple; no cervical lymphadenopathy or thyromegaly Heart: Regular rate and rhythm. There is a normal S1 and S2 with no murmurs, clicks, or gallops appreciated. Lungs: Clear to auscultation bilaterally with no wheezes, rales, or rhonchi. Abdomen: Soft, moderate tenderness to palpation in the right upper quadrant of the abdomen. There is mild right CVA tenderness. There is no guarding or rigidity noted Extremities: No evidence of cyanosis, clubbing, or edema. There are easily palpable peripheral pulses. Skin: warm and dry with good turgor and no rashes. ED COURSE: 0210: The patient was evaluated in room B6. A complete history and physical was performed. An IV lock was initiated and labs are drawn as above. An order was placed for continuous cardiac monitoring. The patient remained in normal sinus rhythm at a rate of 62. The patient was given 30 mg of IV Toradol for pain. 0230: The patient will go for an ultrasound of the right upper quadrant of the abdomen to evaluate the gallbladder. 0330: Upon reevaluation of the patient, she is much more comfortable at this time although she is not pain-free. I reviewed the results of the laboratory studies and ultrasound. I will contact Dr. Lazo. 0400: I discussed the case with Dr. Bhumika Lazo from surgery and she will evaluate the patient for further care. Lurdes Funes DO Past Med/Surg History Social History Preferred Language: Irish Communication Ability: Effective Bag Grader Required: No Beliefs That Will Affect Care: None Current Living Situation: Alone Other Information That Helps Us Care for You: No Feels Safe at Home: Yes Safety Concerns: Feels Safe At This Time Smoking Status: Never smoker Do You Dip or Chew Tobacco: No ; Second Hand Exposure: No ; Hx Alcohol Use: Yes Hx Substance Use: No Allergies Allergies Allergy/AdvReac Type Severity Reaction Status Date / Time propoxyphene Allergy Mild Unknown Verified 02/02/20 02:27 Bactrim Allergy Unknown RASH Verified 10/08/17 21:39 erythromycin base Allergy Unknown Unknown Verified 02/02/20 02:27 metronidazole Allergy Unknown ? Verified 02/02/20 02:27 Penicillins Allergy Unknown Unknown Verified 02/02/20 02:27 sulfamethoxazole Allergy Unknown RASH Verified 02/02/20 02:27 trimethoprim Allergy Unknown RASH Verified 02/02/20 02:27 ciprofloxacin [From Cipro] Allergy Unknown Verified 02/02/20 02:27 enalapril AdvReac Intermediate tightness Unverified 02/02/20 02:27 in ankles topiramate [From Topamax] AdvReac Intermediate fingers Unverified 02/02/20 02:27 numb codeine AdvReac Unknown SICK TO Verified 08/29/19 08:30 STOMACH fentanyl AdvReac Unknown SEVERE Verified 08/29/19 08:30 N&V;DIZZY Quinolones AdvReac Unknown N&V Verified 08/29/19 08:30 clindamycin AdvReac Nausea Unverified 08/29/19 08:30 tramadol [From Ultram] AdvReac Unknown Unverified 08/29/19 08:30 Home Meds Home Medications Medication Instructions Recorded Confirmed Prolia 1 dose SUBCUT .TWICE A YEAR 01/14/19 02/02/20 sumatriptan succinate 100 mg PO DAILY PRN 01/14/19 02/02/20 cholecalciferol (vitamin D3) 2,000 unit PO DAILY 08/29/19 02/02/20 [Vitamin D3] terazosin 1 mg PO HS 08/29/19 02/02/20 apixaban [Eliquis] 2.5 mg PO BID 02/02/20 02/02/20 atorvastatin 40 mg PO DAILY 02/02/20 02/02/20 gabapentin 100 mg PO BID 02/02/20 02/02/20 metoprolol tartrate 25 mg PO BID 02/02/20 02/02/20 omeprazole 20 mg PO DAILY 02/02/20 02/02/20 Previous Rx's Medication Instructions Recorded clotrimazole-betamethasone 1 1 appln TOP .COMPLEX #15 gm 07/16/19 %-0.05 % topical cream Results & Data (ED) Vital Signs Vital Signs - 24 hr 02/02/20 01:56 02/02/20 03:02 Temperature 36.6 C Temperature Source Oral Pulse Rate 60 Pulse Rate [Left] 60 Pulse Rhythm [Left] Regular Pulse Strength [Left] Normal Respiratory Rate 20 18 Respiratory Effort / Characteristics Non-Labored Spontaneous Non-Labored Spontaneous Respiratory Depth Normal Normal Respiratory Pattern Regular Blood Pressure 169/82 H Blood Pressure [Right Arm] 143/76 H Blood Pressure Mean 111 Blood Pressure Mean [Right Arm] 98 Blood Pressure Position [Right Arm] Sitting Pulse Oximetry 97 95 Oxygen Delivery Method Room Air Room Air Sepsis Action Taken by Nursing No Action Required Laboratory Data Result diagrams: 02/02/20 02:15 02/02/20 02:15 Lab Results 02/02/20 02/02/20 02/02/20 Range/Units 02:15 02:15 02:15 WBC 11.92 H (4.8-10.8) K/uL RBC 4.58 (4.2-5.4) M/uL Hgb 14.0 (12.0-16.0) g/dL Hct 42.5 (37-47) % MCV 92.8 (80-100) fL MCH 30.6 (25-34) pg MCHC 32.9 (32-36) g/dL RDW Std Deviation 45.1 (36.4-46.3) fL RDW Coeff of Ling 13.3 (11.5-14.5) % Plt Count 193 (130-400) K/uL MPV 9.9 (7.4-10.4) fL Immature Gran % (Auto) 0.3 % Neut % (Auto) 77.2 % Lymph % (Auto) 13.5 % [place] % (Auto) 8.2 % Eos % (Auto) 0.7 % Baso % (Auto) 0.1 % Immature Gran # (Auto) 0.03 H (0.00-0.02) K/uL Neut # (Auto) 9.21 H (1.4-6.5) K/uL Lymph # (Auto) 1.61 (1.2-3.4) K/uL [place] # (Auto) 0.98 H (0.11-0.59) K/uL Eos # (Auto) 0.08 (0-0.5) K/uL Baso # (Auto) 0.01 (0-0.2) K/uL Sodium 136 (136-145) mmol/L Potassium 4.0 (3.5-5.1) mmol/L Chloride 106 (98-107) mmol/L Carbon Dioxide 25 (21-32) mmol/L Anion Gap 5.0 (3-11) BUN 25 H (7-18) mg/dl Creatinine 0.89 (0.6-1.2) mg/dl Est Cr Clr Drug Dosing 35.5 ml/min Est GFR ( Amer) 69.0 Est GFR (Non-Af Amer) 59.5 BUN/Creatinine Ratio 28.0 H (10-20) Glucose 123 H (70-99) mg/dl Calcium 9.4 (8.5-10.1) mg/dl Total Bilirubin 1.0 (0.2-1) mg/dl AST 24 (15-37) U/L ALT 32 (12-78) U/L Alkaline Phosphatase 64 (45-117) U/L Total Protein 8.0 (6.4-8.2) gm/dl Albumin 4.1 (3.4-5.0) gm/dl Globulin 3.9 (2.5-4.0) gm/dl Albumin/Globulin Ratio 1.1 (0.9-2) Lipase 140 (73-393) U/L Specimen Hemolysis Urine Color Yellow Urine Appearance Clear (Clear) Urine pH 6.5 (4.5-7.5) Ur Specific [place] 1.012 (1.000-1.030) Urine Protein Negative (Negative) Urine Glucose (UA) Negative (Negative) Urine Ketones Negative (Negative) Urine Blood Negative (Negative) Urine Nitrite Negative (Negative) Urine Bilirubin Negative (Negative) Urine Urobilinogen Negative (Negative) Ur Leukocyte Esterase 2+ H (Negative) Urine WBC (Auto) 1-5 (0-5) /hpf Urine RBC (Auto) 0-4 (0-4) /hpf U Hyaline Cast (Auto) 1-5 (0-5) /lpf U Epithel Cells (Auto) >30 H (0-5) /lpf Urine Bacteria (Auto) Negative (Negative) Administered Medications Lactated Ringer's (Lr) 1,000 mls @ 100 mls/hr IV .Q10H MANUELITO Stop: 03/03/20 04:41 Last Admin: 02/02/20 05:32 Dose: 100 mls/hr Documented by: [id number] Vancomycin HCl 1,000 mg/ (Sodium Chloride) 270 mls @ 125 mls/hr IV PREOP STA Stop: 02/02/20 07:08 Last Admin: 02/02/20 05:32 Dose: 125 mls/hr Documented by: [id number] Morphine Sulfate (Morphine Sulfate) 2 mg IV Q3H PRN PRN Reason: MODERATE Pain (Scale 4,5,6) Stop: 02/16/20 04:41 Last Admin: 02/02/20 05:31 Dose: 2 mg Documented by: [id number] Discontinued Medications Sodium Chloride (Nss) 500 mls @ 999 mls/hr IV .Q31M ONE Stop: 02/02/20 03:35 Last Infusion: 02/02/20 04:28 Dose: 0 mls/hr Documented by: [id number] Admin: 02/02/20 04:01 Dose: 999 mls/hr Documented by: [id number] Ketorolac Tromethamine (Toradol) 30 mg IV Q6H PRN PRN Reason: Pain Stop: 02/07/20 02:24 Last Admin: 02/02/20 03:01 Dose: 30 mg Documented by: [id number] Discharge Plan Visit Data *Final* Discharge Date/Time: 02/02/20 04:28 Chief Complaint: Flank Pain Stated Complaint: POSSIBLE KIDNEY STONE ED Provider: Lurdes Funes Discharge Problem: Acute cholecystitis Patient Disposition: Admitted As Inpatient Discharge Instructions Interventions: ED Discharge Assessment Last Done: 02/02/20 04:28
[2020-02-02] MEDS ORDERED: MoRPHine SULFATE 4 MG/ML 1 ML CARP\\VIAL IV PRN (04:42)
[2020-02-02] MEDS ORDERED: SUMAtriptan succinate 100 MG TAB PO PRN (04:42)
[2020-02-02] MEDS ORDERED: VANCOMYCIN CONSULT ACTIVE PRN (04:42)
[2020-02-02] MEDS ORDERED: MoRPHine SULFATE 2 MG/ML CARP IV PRN (04:42)
[2020-02-02] MEDS ORDERED: OXYCODONE/ACETAMINOPHEN 5mg/325mg TAB PO PRN (04:42)
[2020-02-02] MEDS ORDERED: VANCOMYCIN HCL 1,000 MG in SODIUM CHLORIDE 0.9% 250 ML IV STA (04:59)
[2020-02-02] MEDS: MoRPHine SULFATE 2 MG/ML CARP IV PRN ×2 (05:31→20:23)
[2020-02-02] MEDS: LACTATED RINGER'S 1,000 ML IV SCH ×3 (05:32→21:58)
--- NOTE | 2020-02-02 07:51 | Ultrasound Report ---
US gallbladder CLINICAL HISTORY: 85 years-old Female presenting with ruq pain, known cholelithiasis. TECHNIQUE: Real-time grayscale and limited color Doppler ultrasound imaging of the abdomen limited to the right upper quadrant was performed. COMPARISON: CT from 03/01/2019 and prior right upper quadrant ultrasound from 02/27/2009. FINDINGS: Pancreas: Visualized portions of the pancreatic head and body normal. Liver: Mildly hyperechogenic parenchyma, although the right hemidiaphragm remains visible, likely ind icating mild steatosis. The liver measures 15.7 cm in maximal sagittal dimension. No sonographic evid ence of hepatic mass. Main portal vein patent with normal directional flow. Biliary: No intrahepatic biliary ductal dilatation. Common bile duct measures up to 5 mm in diameter. Gallbladder: Gallstones and gallbladder sludge with mild gallbladder distention and mild wall thicken ing, measuring 4 mm. No pericholecystic fluid though there may be hyperechogenicity of pericholecysti c fat implying inflammatory change. Sonographic Hamilton's sign positive. Right kidney: Lower pole cyst noted. No evidence of hydronephrosis. Ascites: None. Other: None. IMPRESSION: 1. Findings concerning for acute calculus cholecystitis. Surgical consultation recommended. 2. Suspected mild hepatic steatosis. The report will be called/faxed according to standard departmental protocol. ACT 112: Negative or not required by law. Electronically signed by: Noah Conde M.D. 02/02/2020 7:49 AM
[2020-02-02] MEDS ORDERED: BUPIVACAINE 0.5 % 5 MG/1 ML MPF 30ML VIAL ONE (08:33)
[2020-02-02] MEDS ORDERED: ACETAMINOPHEN 1000 MG/100 ML IV IV ONE (08:43)
[2020-02-02] MEDS ORDERED: ePHEDrine sulfate 50 MG/ML AMP IV PRN (08:46)
[2020-02-02] MEDS ORDERED: MEPERIDINE HCL 25 MG/ML CARP/VIAL IV PRN (08:46)
[2020-02-02] MEDS ORDERED: HYDROmorphone INJ 1 MG/ML SYRINGE IV PRN (08:46)
[2020-02-02] MEDS ORDERED: ONDANSETRON INJ 2 MG/ML 2 ML VIAL IV PRN (08:46)
[2020-02-02] MEDS ORDERED: ATROPINE SULFATE 0.1 MG/ML 10ML SYR IV PRN (08:46)
--- NOTE | 2020-02-02 08:46 | Anesthesiology Consultation ---
Date of Service February 02, 2020 Assessment & Plan Chart Review Chart Review: Acceptable Risk for Surgery Consults Requested none ASA ASA3 Proposed Anesthesia Anesthesia Type: General Risk / Benefits Reviewed With: PT / POA / Parent / Guardian, Accepts Plan and Informed Consent Obtained Additional Comments: pt accepts N/V risk post surgery. Discussed fentanyl allergy. Pt aware hydromorphone can produce same SE. Pt accepts potential risks including . consent signed. History Surgery Operation Date: 02/02/20 08:30 Proposed Procedures p Laparoscopic Cholecystectomy - Bhumika Lazo MD Height/Weight Height: 5 ft 1 in Weight: 54.6 kg Allergies Allergy/AdvReac Type Severity Reaction Status Date / Time propoxyphene Allergy Mild Unknown Verified 02/02/20 02:27 Bactrim Allergy Unknown RASH Verified 10/08/17 21:39 erythromycin base Allergy Unknown Unknown Verified 02/02/20 02:27 metronidazole Allergy Unknown ? Verified 02/02/20 02:27 Penicillins Allergy Unknown Unknown Verified 02/02/20 02:27 sulfamethoxazole Allergy Unknown RASH Verified 02/02/20 02:27 trimethoprim Allergy Unknown RASH Verified 02/02/20 02:27 ciprofloxacin [From Cipro] Allergy Unknown Verified 02/02/20 02:27 enalapril AdvReac Intermediate tightness Unverified 02/02/20 02:27 in ankles topiramate [From Topamax] AdvReac Intermediate fingers Unverified 02/02/20 02:27 numb codeine AdvReac Unknown SICK TO Verified 08/29/19 08:30 STOMACH fentanyl AdvReac Unknown SEVERE Verified 08/29/19 08:30 N&V;DIZZY Quinolones AdvReac Unknown N&V Verified 08/29/19 08:30 clindamycin AdvReac Nausea Unverified 08/29/19 08:30 tramadol [From Ultram] AdvReac Unknown Unverified 08/29/19 08:30 Medications Home Medications Medication Instructions Recorded Confirmed Last Taken Prolia 1 dose SUBCUT .TWICE A YEAR 01/14/19 02/02/20 04/09/19 sumatriptan succinate 100 mg PO DAILY PRN 01/14/19 02/02/20 08/28/19 clotrimazole-betamethasone 1 1 appln TOP .COMPLEX #15 gm 09/09/19 03/28/20 Unknown %-0.05 % topical cream cholecalciferol (vitamin D3) 2,000 unit PO DAILY 08/29/19 02/02/20 08/28/19 [Vitamin D3] terazosin 1 mg PO HS 08/29/19 02/02/20 08/28/19 apixaban [Eliquis] 2.5 mg PO BID 02/02/20 02/02/20 Unknown atorvastatin 40 mg PO DAILY 02/02/20 02/02/20 Unknown gabapentin 100 mg PO BID 02/02/20 02/02/20 Unknown metoprolol tartrate 25 mg PO BID 02/02/20 02/02/20 Unknown omeprazole 20 mg PO DAILY 02/02/20 02/02/20 Unknown Active Medications Generic Name Dose Route Start Last Admin Trade Name Freq PRN Reason Stop Dose Admin Lactated Ringer's 1,000 mls @ 100 mls/hr 02/02/20 04:42 02/02/20 08:50 Lr IV 03/03/20 04:41 Infused .Q10H MANUELITO Titration Morphine Sulfate 2 mg 02/02/20 04:42 02/02/20 05:31 Morphine Sulfate IV 02/16/20 04:41 2 mg Q3H PRN Administration MODERATE Pain (Scale 4,5,6) Morphine Sulfate 4 mg 02/02/20 04:42 02/02/20 08:32 Morphine Sulfate IV 02/16/20 04:41 4 mg Q3H PRN Administration SEVERE Pain (Scale 7,8,9,10) NPO Date Last Intake of Fluids: 02/01/20 Time Last Intake of Fluids: 20:30 Date Last Intake of Solids: 02/01/20 Time Last Intake of Solids: 20:30 Past Medical History Medical History Acute cholecystitis (Acute) Acute lower GI bleeding (Resolved) Atrial fibrillation with RVR (Acute) Diverticula of colon Diverticulitis (Resolved) Gastroparesis (Chronic) GERD (gastroesophageal reflux disease) (Chronic) Hyperlipidemia Hypertension (Chronic) Migraine headache (Chronic) Thoracic aortic aneurysm (Chronic) 4.1 cm Exercise / Class Metabolic Activity II 4-5 Yardwork/Stairs/Walk up hill Past Family History Family History Other Coronary heart disease Past Surgical History Surgical History History of cataract surgery (Chronic) History of lumbar surgery (Chronic) Past Anesthesia History No Hx of Anesthesia Complications and No Family Hx of Anesthesia Complications N/V with fentanyl History of PONV No Hx of Motion Sickness and History of PONV Social History Smoking Status: Never smoker Do You Dip or Chew Tobacco: No Hx Alcohol Use: Yes alcohol intake frequency: holidays/special occasions only Hx Substance Use: No substance use type: does not use Physical Exam Vital Signs Last Vital Signs Temp 36.5 C 02/02/20 07:40 Pulse 48 L 02/02/20 07:40 Resp 14 02/02/20 07:40 BP 153/64 H 02/02/20 07:40 Pulse Ox 97 02/02/20 07:40 ENMT Mouth: no TMJ abnormality Thyromental Distance: < 3.5 Finger Breadths Mallampati Class: III high palate Neck normal visual inspection and trachea midline; neck extension not limited Respiratory normal respiratory effort Auscultation: lungs clear to auscultation bilaterally Cardiovascular Rate/Rhythm: regular rate and regular rhythm Heart Sounds: no murmur Musculoskeletal Spine: normal cervical ROM Extremities: full ROM of extremities Neurologic moves all extremities Psychiatric Orientation: alert and oriented x 3 Testing Laboratory Results 02/02/20 02:15 02/02/20 02:15 Urine Color Yellow 02/02/20 02:15 Urine Appearance Clear (Clear) 02/02/20 02:15 Urine pH 6.5 (4.5-7.5) 02/02/20 02:15 Ur Specific [place] 1.012 (1.000-1.030) 02/02/20 02:15 Urine Protein Negative (Negative) 02/02/20 02:15 Urine Glucose (UA) Negative (Negative) 02/02/20 02:15 Urine Ketones Negative (Negative) 02/02/20 02:15 Urine Nitrite Negative (Negative) 02/02/20 02:15 Ur Leukocyte Esterase 2+ (Negative) H 02/02/20 02:15 Urine WBC (Auto) 1-5 /hpf (0-5) 02/02/20 02:15 Urine RBC (Auto) 0-4 /hpf (0-4) 02/02/20 02:15 U Hyaline Cast (Auto) 1-5 /lpf (0-5) 02/02/20 02:15 U Epithel Cells (Auto) >30 /lpf (0-5) H 02/02/20 02:15 Urine Bacteria (Auto) Negative (Negative) 02/02/20 02:15 Electrocardiogram Date: 02/02/20 Findings: + SB @ (57bpm) Chest X-Ray Date: 08/29/19 Findings: + NAD and + cardiomegaly (mild) Echocardiogram Date: 08/29/19 EF: 65-70 LV Function: normal RWMA: + none Other Findings: + atrial enlargement (BL) and + LVH (Moderate) Valvular Disease: + no significant valvular disease 4.1cm thoracic aneurysm
[2020-02-02] MEDS ORDERED: LIDOCAINE HCL 2% 2 ML VIAL/AMP(20MG/ML) INFIL ONE (08:49)
[2020-02-02] MEDS ORDERED: SODIUM CHLORIDE 0.9% INJ 10 ML VIAL ONE (08:49)
[2020-02-02] MEDS ORDERED: HYDROmorphone INJ 2 MG/ML SYR/VIAL ONE (08:49)
[2020-02-02] MEDS ORDERED: PROPOFOL IV EMULSION 10 MG/ML 20 ML VIAL IV ONE (08:49)
[2020-02-02] MEDS ORDERED: ONDANSETRON INJ 2 MG/ML 2 ML VIAL ONE (08:49)
[2020-02-02] MEDS ORDERED: ROCURONIUM BROMIDE 10 MG/ML 5 ML VIAL ONE (08:49)
--- NOTE | 2020-02-02 09:13 | History & Physical Report ---
Date of Service February 02, 2020 Assessment & Plan (1) Acute cholecystitis: 85 yr old woman on eliquis with acute calculous cholecystitis. Discussed laparoscopic cholecystectomy with risks of bleeding, infection, conversion to open, bile leak, retained stone and need for ercp, postop diarrhea or intolerance to foods. Low risk procedure for bleeding so OK to continue for surgery today despite eliquis. Consent signed. Given multiple antibiotic allergies, will hold on any further antibiotics unless needed (she has already received vancomycin). Present on Admission?: Yes (2) Atrial fibrillation with RVR: well controlled on metoprolol and eliquis. Will continue former, latter depending on surgical findings. Present on Admission?: Yes Admission and Anticipated Discharge Date Admission Date: February 02, 2020 History of Present Illness Chief Complaint: abdominal pain Primary Care Provider: Umm Thompson MD 85 yr old woman who presented to ER with first episode of right upper quadrant abdominal pain which started yesterday afternoon. Did not eat anything unusual for her. Pain was localized in right upper quadrant, moderate severity, radiated to her back. Thought she was having a kidney stone as she has had these before. Went for a walk, took tylenol x 2 and went to bed. Pain worsened overnight and about 1 am, was very intense. Came to the ER for evaluation. No fevers/ chills. No vomiting but did feel nauseated. No change in bowel habits. No prior abdominal operations. Allergies Allergy/AdvReac Type Severity Reaction Status Date / Time propoxyphene Allergy Mild Unknown Verified 02/02/20 02:27 Bactrim Allergy Unknown RASH Verified 10/08/17 21:39 erythromycin base Allergy Unknown Unknown Verified 02/02/20 02:27 metronidazole Allergy Unknown ? Verified 02/02/20 02:27 Penicillins Allergy Unknown Unknown Verified 02/02/20 02:27 sulfamethoxazole Allergy Unknown RASH Verified 02/02/20 02:27 trimethoprim Allergy Unknown RASH Verified 02/02/20 02:27 ciprofloxacin [From Cipro] Allergy Unknown Verified 02/02/20 02:27 enalapril AdvReac Intermediate tightness Unverified 02/02/20 02:27 in ankles topiramate [From Topamax] AdvReac Intermediate fingers Unverified 02/02/20 02:27 numb codeine AdvReac Unknown SICK TO Verified 08/29/19 08:30 STOMACH fentanyl AdvReac Unknown SEVERE Verified 08/29/19 08:30 N&V;DIZZY Quinolones AdvReac Unknown N&V Verified 08/29/19 08:30 clindamycin AdvReac Nausea Unverified 08/29/19 08:30 tramadol [From Ultram] AdvReac Unknown Unverified 08/29/19 08:30 Home Medications Home Medications Medication Instructions Recorded Confirmed Type Prolia 1 dose SUBCUT .TWICE A YEAR 01/14/19 02/02/20 History sumatriptan succinate 100 mg PO DAILY PRN 01/14/19 02/02/20 History clotrimazole-betamethasone 1 1 appln TOP .COMPLEX #15 gm 07/16/19 02/02/20 Rx %-0.05 % topical cream cholecalciferol (vitamin D3) 2,000 unit PO DAILY 08/29/19 02/02/20 History [Vitamin D3] terazosin 1 mg PO HS 08/29/19 02/02/20 History apixaban [Eliquis] 2.5 mg PO BID 02/02/20 02/02/20 History atorvastatin 40 mg PO DAILY 02/02/20 02/02/20 History gabapentin 100 mg PO BID 02/02/20 02/02/20 History metoprolol tartrate 25 mg PO BID 02/02/20 02/02/20 History omeprazole 20 mg PO DAILY 02/02/20 02/02/20 History Past Med/Surg History Medical History Acute cholecystitis (Acute) Acute lower GI bleeding (Resolved) Atrial fibrillation with RVR (Acute) Diverticula of colon Diverticulitis (Resolved) Gastroparesis (Chronic) GERD (gastroesophageal reflux disease) (Chronic) Hyperlipidemia Hypertension (Chronic) Migraine headache (Chronic) Thoracic aortic aneurysm (Chronic) 4.1 cm Surgical History History of cataract surgery (Chronic) History of lumbar surgery (Chronic) Family History Other Coronary heart disease Social History Preferred Language: Somali Communication Ability: Effective [employer] Processing Technician Required: No Beliefs That Will Affect Care: None Current Living Situation: Alone Other Information That Helps Us Care for You: No Feels Safe at Home: Yes Safety Concerns: Feels Safe At This Time Smoking Status: Never smoker Do You Dip or Chew Tobacco: No ; Second Hand Exposure: No ; Hx Alcohol Use: Yes Hx Substance Use: No Review of Systems Review of Systems: All systems reviewed & are unremarkable except as noted in HPI & below Cardiovascular: Additional Comments: history of a fib but now well controlled on metoprolol and eliquis Musculoskeletal: hip pain at times Physical Exam Constitutional: WD/WN, vitals as above Eyes: PERRL, conjunctivae normal, anicteric sclerae Neck: trachea midline Respiratory: normal respiratory effort, lungs clear to auscultation Cardiovascular: RRR, no murmur, no edema Gastrointestinal (Abdomen): Inspection/Auscultation: abdomen normal to inspection; abdomen not distended Percussion/Palpation: + abdomen tender and abdomen soft; no guarding right upper quadrant, no hamilton's sign Musculoskeletal: Extremities: extremities normal to inspection; no cyanosis and no clubbing Neurologic: moves all extremities; no focal motor deficits Psychiatric: A+Ox3, euthymic affect Results & Data Results & Data ([facility]) Vital Signs (Past 12 Hours) Vital Signs Temp Pulse Pulse Resp BP BP BP 02/02/20 07:40 36.5 C 48 L 14 153/64 H 02/02/20 04:49 36.5 C 62 12 157/76 H 02/02/20 04:28 58 L 16 140/84 02/02/20 03:02 60 18 143/76 H 02/02/20 01:56 36.6 C 60 20 169/82 H Pulse Ox 02/02/20 07:40 97 02/02/20 04:49 97 02/02/20 04:28 95 02/02/20 03:02 95 02/02/20 01:56 97 Laboratory Results 02/02/20 02/02/20 02/02/20 Range/Units 02:15 02:15 02:15 WBC 11.92 H (4.8-10.8) K/uL RBC 4.58 (4.2-5.4) M/uL Hgb 14.0 (12.0-16.0) g/dL Hct 42.5 (37-47) % MCV 92.8 (80-100) fL MCH 30.6 (25-34) pg MCHC 32.9 (32-36) g/dL RDW Std Deviation 45.1 (36.4-46.3) fL RDW Coeff of Ling 13.3 (11.5-14.5) % Plt Count 193 (130-400) K/uL MPV 9.9 (7.4-10.4) fL Immature Gran % (Auto) 0.3 % Neut % (Auto) 77.2 % Lymph % (Auto) 13.5 % Josephine % (Auto) 8.2 % Eos % (Auto) 0.7 % Baso % (Auto) 0.1 % Immature Gran # (Auto) 0.03 H (0.00-0.02) K/uL Neut # (Auto) 9.21 H (1.4-6.5) K/uL Lymph # (Auto) 1.61 (1.2-3.4) K/uL Josephine # (Auto) 0.98 H (0.11-0.59) K/uL Eos # (Auto) 0.08 (0-0.5) K/uL Baso # (Auto) 0.01 (0-0.2) K/uL Sodium 136 (136-145) mmol/L Potassium 4.0 (3.5-5.1) mmol/L Chloride 106 (98-107) mmol/L Carbon Dioxide 25 (21-32) mmol/L Anion Gap 5.0 (3-11) BUN 25 H (7-18) mg/dl Creatinine 0.89 (0.6-1.2) mg/dl Est Cr Clr Drug Dosing 35.5 ml/min Est GFR ( Amer) 69.0 Est GFR (Non-Af Amer) 59.5 BUN/Creatinine Ratio 28.0 H (10-20) Glucose 123 H (70-99) mg/dl Calcium 9.4 (8.5-10.1) mg/dl Total Bilirubin 1.0 (0.2-1) mg/dl AST 24 (15-37) U/L ALT 32 (12-78) U/L Alkaline Phosphatase 64 (45-117) U/L Total Protein 8.0 (6.4-8.2) gm/dl Albumin 4.1 (3.4-5.0) gm/dl Globulin 3.9 (2.5-4.0) gm/dl Albumin/Globulin Ratio 1.1 (0.9-2) Lipase 140 (73-393) U/L Specimen Hemolysis Urine Color Yellow Urine Appearance Clear (Clear) Urine pH 6.5 (4.5-7.5) Ur Specific [place] 1.012 (1.000-1.030) Urine Protein Negative (Negative) Urine Glucose (UA) Negative (Negative) Urine Ketones Negative (Negative) Urine Blood Negative (Negative) Urine Nitrite Negative (Negative) Urine Bilirubin Negative (Negative) Urine Urobilinogen Negative (Negative) Ur Leukocyte Esterase 2+ H (Negative) Urine WBC (Auto) 1-5 (0-5) /hpf Urine RBC (Auto) 0-4 (0-4) /hpf U Hyaline Cast (Auto) 1-5 (0-5) /lpf U Epithel Cells (Auto) >30 H (0-5) /lpf Urine Bacteria (Auto) Negative (Negative) Diagnostic Findings RUQ [place] [phone] Ultrasound Report Patient: ISMAEL MONTANA Date: 02/02/20 MR#: [id number]: 236 TIA LIZ Acct ID:[id number]: Date: 1935[facility] Zip: [place] [address] Age: 85Location: 3E Sex: F Room/Bed: [facility] Att Phy: Bhumika Lazo, MDDiagnosis: ACUTE CHOLECYSTITIS Brina Phy: Umm Delcid MDService Date: 02/02/20 Fam Phy:Interpreting Phy: Noah Conde MD Admit Phy: Bhumika Lazo MD Ordering Phy: Lurdes Funes D.O. cc: ~ US gallbladder CLINICAL HISTORY: 85 years-old Female presenting with ruq pain, known cholelithiasis. TECHNIQUE: Real-time grayscale and limited color Doppler ultrasound imaging of the abdomen limited to the right upper quadrant was performed. COMPARISON: CT from 03/01/2019 and prior right upper quadrant ultrasound from 02/27/2009. FINDINGS: Pancreas: Visualized portions of the pancreatic head and body normal. Liver: Mildly hyperechogenic parenchyma, although the right hemidiaphragm remains visible, likely indicating mild steatosis. The liver measures 15.7 cm in maximal sagittal dimension. No sonographic evidence of hepatic mass. Main portal vein patent with normal directional flow. Biliary: No intrahepatic biliary ductal dilatation. Common bile duct measures up to 5 mm in diameter. Gallbladder: Gallstones and gallbladder sludge with mild gallbladder distention and mild wall thickening, measuring 4 mm. No pericholecystic fluid though there may be hyperechogenicity of pericholecystic fat implying inflammatory change. Sonographic Hamilton's sign positive. Right kidney: Lower pole cyst noted. No evidence of hydronephrosis. Ascites: None. Other: None. IMPRESSION: 1. Findings concerning for acute calculus cholecystitis. Surgical consultation recommended. 2. Suspected mild hepatic steatosis Medications Administered Vancomycin but developed red rash on left forearm, now improving. Did receive most of the dose. Code Status & VTE Plan VTE Prophylaxis Plan VTE Prophylaxis will be ordered: Yes
[2020-02-02] MEDS ORDERED: ePHEDrine sulfate 50 MG/ML SYR ONE (09:45)
[2020-02-02] MEDS ORDERED: DEXAMETHASONE SOD INJ 4 MG/ML VIAL ONE (09:45)
[2020-02-02] MEDS ORDERED: raNITIdine HCl 25 MG/ML VIAL IV ONE (09:45)
[2020-02-02] MEDS ORDERED: NEOSTIGMINE METHYLSULFATE 5 MG/5 ML SYR ONE (10:12)
[2020-02-02] MEDS ORDERED: GLYCOPYRROLATE 0.2 MG/ML VIAL ONE (10:12)
--- NOTE | 2020-02-02 10:43 | Operative Report ---
Post Operative Report Pre & Post Diagnosis Operation Date: 02/02/20 08:30 Pre-Op Diagnosis: ACUTE CHOLECYSTITIS Post-Op Diagnosis: ACUTE CALCULOUS CHOLECYSTITIS I identified the patient and participated in the time-out.: Yes Procedure Operation Date: 02/02/20 08:30 Actual Procedures p Laparoscopic Cholecystectomy(Not Applicable) - Bhumika Lazo MD Surgeon Bhumika Lazo MD [employer] Sales Consultant none Estimated Blood Loss 10 Findings See Below (inflamed edematous gallbladder with multiple small stones) Specimens gallbladder and contents Description of Procedure The patient received vancomycin preoperatively. After the induction of general endotracheal anesthesia, she had placement of sequential compression devices. She was then positioned in Trendelenburg. Her abdomen was sterilely prepped and draped. A supraumbilical incision was made and a Veress needle introduced into the peritoneal cavity. This was tested with a saline drop test. Pneumoperitoneum was established. Initial pressure was 1 mmHg and this was taken up to 15 mmHg. A 5 mm trocar was then placed. The position was reversed into reverse Trendelenburg and a slight airplane to the left. 3 additional trocars were placed under direct vision - a 11 mm in the epigastric area and 2 5 mm in the right upper quadrant. Initial inspection of the abdomen revealed no gross findings. The gallbladder was identified and noted to be quite edematous and dilated. This was grasped and retracted over the edge of the liver. Inflammatory adhesions were bluntly peeled away. Dissection was begun at the triangle of Calot and the cystic duct identified. The gallbladder was triangulated on the cystic duct. Critical views were seen anteriorly and posteriorly. The gallbladder was doubly clipped on the remaining side singly clipped on the gallbladder side and divided. In the course of grasping the gallbladder a small hole was torn in it and there was some slight leakage of gallbladder contents. A suction was placed into the gallbladder and it was completely decompressed. There was spillage of 2 small stones which were removed with a grasper. The cystic duct was identified in 3 small branches. These were individually clipped and ligated. The gallbladder was then dissected off the liver bed. It was placed in an Endobag and removed through the epigast shameka incision. The abdomen was irrigated multiple times. Hemostasis was noted to be present. The trocars were removed. Pneumoperitoneum was released. 30 cc of half percent Marcaine had been used for local anesthesia throughout the procedure. The fascia of the epigastric incision was closed with 0 Vicryl stitches placed anteriorly. The skin of all 4 incisions was closed with running subcuticular 4-0 Vicryl sutures. Steri-Strips and sterile dressings were applied. She was awakened and taken to recovery in stable condition. I attest to the content of the Intraoperative Record and any orders documented therein. Any exceptions are noted below.
--- NOTE | 2020-02-02 11:17 | Anesthesiology Progress Note ---
Date of Service February 02, 2020 Anesthesia Post Procedure Vital Signs Vital Signs: Temp Pulse Pulse Pulse Resp BP BP 02/02/20 11:10 88 18 02/02/20 11:00 85 16 02/02/20 10:50 82 21 02/02/20 10:44 36.3 C L 92 H 16 02/02/20 07:40 36.5 C 48 L 14 153/64 H 02/02/20 04:49 36.5 C 62 12 02/02/20 04:28 58 L 16 140/84 02/02/20 03:02 60 18 02/02/20 01:56 36.6 C 60 20 169/82 H BP Pulse Ox 02/02/20 11:10 132/63 94 02/02/20 11:00 127/84 98 02/02/20 10:50 130/73 98 02/02/20 10:44 124/59 L 97 02/02/20 07:40 97 02/02/20 04:49 157/76 H 97 02/02/20 04:28 95 02/02/20 03:02 143/76 H 95 02/02/20 01:56 97 Pain Intensity Right Flank: Pain Intensity: 8 Transfer of Care Handoff Completed per policy Notes Mental Status: alert / awake / arousable and participated in evaluation Nausea / Vomiting: adequately controlled Pain: adequately controlled Airway Patency, RR, SpO2: stable & adequate BP & HR: stable & adequate Hydration State: stable & adequate Anesthetic Complications: no major complications apparent and Pt Satisfied with anesthetic care
[2020-02-02] MEDS ORDERED: CLOTRIMAZOLE/BETAMETHASONE CR 15 GM TUBE EXT PRN (11:28)
[2020-02-02] MEDS: PANTOprazole 40 MG TAB PO SCH (11:34)
[2020-02-02] MEDS: METOPROLOL TARTRATE 25 MG TAB PO SCH ×2 (11:34→20:28)
--- NOTE | 2020-02-02 12:55 | Electrocardiogram Report ---
Test Reason : Blood Pressure : / mmHG Vent. Rate : 057 BPM Atrial Rate : 057 BPM P-R Int : 182 ms QRS Dur : 092 ms QT Int : 474 ms P-R-T Axes : 052 000 081 degrees QTc Int : 461 ms Sinus bradycardia Otherwise normal ECG When compared with ECG of 31-AUG-2019 06:47, Premature atrial complexes are no longer Present Confirmed by Tuan Bee ([id number]) on 02/02/2020 12:55:40 PM Referred By: REFERRED SELF Confirmed By:Tuan Bee
[2020-02-02] MEDS: ONDANSETRON INJ 2 MG/ML 2 ML VIAL IV PRN (13:45)
[2020-02-02] MEDS ORDERED: PROMETHAZINE HCL 12.5 MG in SODIUM CHLORIDE 0.9% 50 ML IV PRN (14:39)
[2020-02-02] MEDS: TERAZOSIN HCL 1 MG CAP PO SCH (20:28)
[2020-02-02] MEDS: GABAPENTIN 100 MG CAP PO SCH (20:29)
[2020-02-03] MEDS: OXYCODONE/ACETAMINOPHEN 5mg/325mg TAB PO PRN ×2 (01:26→08:33)
[2020-02-03] MEDS: LACTATED RINGER'S 1,000 ML IV SCH (06:36)
[2020-02-03] MEDS: ATORVASTATIN 40 MG TAB PO SCH (08:31)
[2020-02-03] MEDS: PANTOprazole 40 MG TAB PO SCH (08:32)
[2020-02-03] MEDS: CHOLECALCIFEROL 1,000 UNITS 25 MCG TAB PO SCH (08:32)
[2020-02-03] MEDS: METOPROLOL TARTRATE 25 MG TAB PO SCH ×2 (08:32→21:33)
[2020-02-03] MEDS: GABAPENTIN 100 MG CAP PO SCH ×2 (08:33→21:33)
--- NOTE | 2020-02-03 10:50 | Surgery Progress Note ---
Date of Service February 03, 2020 Assessment & Plan (1) Acute cholecystitis: 85 yr old woman on eliquis with acute calculous cholecystitis now POD#1 from lap cholecystectomy. Overall doing well. Will advance diet slowly. Lives alone so will plan on discharge tomorrow. OK to resume all meds (including eliquis) on discharge. (2) Atrial fibrillation with RVR: well controlled on metoprolol and eliquis. Will continue former. Resume eliquis tomorrow upon discharge. Subjective Some nausea and vomiting following anesthesia but none since. Tolerated full liquids for breakfast. Passing flatus. Still sore in RUQ but much improved from prior to surgery. Pain medications are working. Review of Systems Review of Systems: All systems reviewed & are unremarkable except as noted in HPI & below Physical Exam Constitutional: WD/WN, vitals as above Eyes: PERRL, conjunctivae normal, anicteric sclerae Neck: trachea midline Respiratory: normal respiratory effort, lungs clear to auscultation Cardiovascular: RRR, no murmur, no edema Gastrointestinal (Abdomen): Inspection/Auscultation: abdomen normal to inspection, + abdomen distended (mild) and normal bowel sounds Percussion/Palpation: + abdomen tender (ruq, mild) and abdomen soft; no guarding dressings dry Musculoskeletal: Extremities: extremities normal to inspection; no cyanosis and no clubbing Neurologic: moves all extremities; no focal motor deficits Psychiatric: A+Ox3, euthymic affect Results & Data Vital Signs (Past 12 Hours) Vital Signs Temp Pulse Pulse Resp BP Pulse Ox 02/03/20 08:30 64 02/03/20 07:25 36.6 C 58 L 16 157/70 H 95 02/03/20 06:49 52 L 155/58 H 02/03/20 03:16 36.9 C 66 16 124/71 92 02/02/20 23:29 37.0 C 59 L 16 112/70 93
[2020-02-03] MEDS: ONDANSETRON INJ 2 MG/ML 2 ML VIAL IV PRN (11:38)
[2020-02-03] MEDS ORDERED: COUGH DROP (SUGAR FREE) LOZ 24 LOZ/1 BOX BUCCAL ONE (14:27)
[2020-02-03] MEDS ORDERED: COUGH DROP (SUGAR FREE) LOZ 24 LOZ/1 BOX BUCCAL PRN (14:32)
[2020-02-03] MEDS ORDERED: METOPROLOL TARTRATE 1 MG/ML VIAL IV STA ×2 (17:14→18:41)
[2020-02-03] MEDS ORDERED: METOPROLOL TARTRATE 1 MG/ML VIAL IV PRN ×2 (17:14→17:30)
[2020-02-03 17:21] LABS: Basophils # (auto) 0.02 K/uL (0-0.2); Basophils % (auto) 0.2 %; Eosinophils # (auto) 0.11 K/uL (0-0.5); Eosinophils % (auto) 1.1 %; Hematocrit (blood only) 39.8 % (37-47); Hemoglobin 12.9 g/dL (12.0-16.0); Immature Granulocytes # (auto) 0.03 K/uL (0.00-0.02); Immature Granulocytes % (auto) 0.3 %; Lymphocytes # (auto) 1.21 K/uL (1.2-3.4); Lymphocytes % (auto) 12.1 %; Mean Corpuscular Hemoglobin 30.1 pg (25-34); Mean Corpuscular Volume 92.8 fL (80-100); Monocytes # (auto) 0.53 K/uL (0.11-0.59); Monocytes % (auto) 5.3 %; Neutrophils # (auto) 8.06 K/uL (1.4-6.5); Platelet Count 187 K/uL (130-400); RDW Coefficient of Variation 13.6 % (11.5-14.5); RDW Standard Deviation 45.9 fL (36.4-46.3); Red Blood Count 4.29 M/uL (4.2-5.4); White Blood Count 9.96 K/uL (4.8-10.8)
[2020-02-03 17:22] LABS: Mean Corpuscular Hgb Conc 32.4 g/dL (32-36)
--- NOTE | 2020-02-03 17:35 | XRay Report ---
XR chest 1V portable CLINICAL HISTORY: hypoxia dyspnea COMPARISON STUDY: 08/29/2019 FINDINGS: Mild cardiomegaly. Slight prominence of the pulmonary vasculature. Subsegmental atelectasis right midlung. No evidence for focal infiltrate. IMPRESSION: 1. Mild cardiomegaly with components of pulmonary vascular congestion. 2. Segmental atelectasis right midlung. 3. No well-defined focal infiltrate. ACT 112: Negative or not required by law. The above report was generated using voice recognition software. It may contain grammatical, syntax or spelling errors. Electronically signed by: Iraj Hidalgo M.D. 02/03/2020 5:34 PM
[2020-02-03] MEDS: ACETAMINOPHEN 325 MG TAB PO PRN (17:37)
[2020-02-03 17:38] LABS: Albumin Level 3.2 gm/dl (3.4-5.0); BUN Creatinine Ratio 18.9 (10-20); Calcium 8.6 mg/dl (8.5-10.1); Creatinine Clr Calc Pharmacy 35.5 ml/min; Est GFR (Non-African American) 59.5; Magnesium 1.9 mg/dl (1.8-2.4); Potassium 3.6 mmol/L (3.5-5.1)
[2020-02-03 17:40] LABS: Albumin Globulin Ratio 0.9 (0.9-2); Bilirubin,Total 0.7 mg/dl (0.2-1); Globulin 3.6 gm/dl (2.5-4.0); Total Protein 6.8 gm/dl (6.4-8.2)
--- NOTE | 2020-02-03 17:41 | Consultation ---
Date of Consultation February 03, 2020 Assessment & Plan (1) Acute cholecystitis: 85 year old female with history of Paroxysmal Atrial Fibrillation on Eliquis, Borderline Tachy-Ra Syndrome, HTN, other problems noted below presenting with tachycardia, s/p Lap cholecystectomy 02/02/20. ATRIAL FIBRILLATION IN RVR History of Paroxysmal Atrial Fibrillation on Eliquis, Borderline Tachy-Ra Syndrome -- converted to sinus rhythm with Lopressor 2.5mg IV one dose back to HR 50s--> baseline asymptomatic --CXR: mild congestion d/c IV fluids, Lasix 20mg IV one dose with Potassium PO 40 meq -- continue usual Metoprolol tartrate 25mg po BID, Eliquis 2.5mg po BID PRN Lopressor 2.5mg IV q6h for HR > 120s -- transfer to PCU HYPERTENSION -- mildly elevated but improving -- continue usual Metoprolol, Terazosin ACUTE CHOLECYSTITIS, S/P LAP [place] -- afebrile, pain well controlled -- recommend to continue cardiac monitoring, and d/c home if stable for at least 24 hours (hopefully discharge on ) Pre DM -- BSGs within acceptable range GERD -- continue Protonix OTHER CHRONIC CONDITIONS: HLD Enlarged Thoracic Aorta Migraine discussed with Dr. Bhumika Lazo Thank you for this consultation. Dr. Blackburn will be following the patient starting tomorrow. You can reach a member of the [facility] Hospitalist Team 30/05 via pager @ [phone]. History of Present Illness 85 year old female with history of Paroxysmal Atrial Fibrillation on Eliquis, Borderline Tachy-Ra Syndrome, HTN, other problems noted below presenting with tachycardia, s/p Lap cholecystectomy 02/02/20. Patient has Paroxysmal Atrial Fibrillation for which she takes Metoprolol tartrate 25mg po BID which has been continued since admission yesterday, and Eliquis which has been on hold and is scheduled to be started tonight. Her admission EKG Patient underwent Lap [place] yesterday for Acute Calculous Cholecystitis. She was doing fine overall until this afternoon, when HR was found to be in the 130s and BP systolic 160s on routine VS check, 88% on room air--> 96% on 2 L nasal cannula. Patient seen at bedside, resting, comfortable, in good spirits. Reports mild palpitations, but denies chest pain, dyspnea, dizziness, nausea. Reports moderate RUQ pain, but otherwise denies other symptoms. Bedside fisher oyster shows HR 160s, STAT Lopressor 2.5mg IV given, HR improved then converted to Sinus Rhythm, HR 50s. BP systolic 140s. Patient remained asymptomatic. Attending Physician: Bhumika Lazo MD Allergies Allergy/AdvReac Type Severity Reaction Status Date / Time sulfamethoxazole Allergy Intermediate RASH Verified 02/03/20 14:33 trimethoprim Allergy Intermediate RASH Verified 02/03/20 14:33 propoxyphene Allergy Mild Unknown Verified 02/02/20 02:27 Bactrim Allergy Unknown RASH Verified 10/08/17 21:39 erythromycin base Allergy Unknown Unknown Verified 02/02/20 02:27 metronidazole Allergy Unknown Unknown Verified 02/03/20 14:33 Penicillins Allergy Unknown Unknown Verified 02/02/20 02:27 ciprofloxacin [From Cipro] Allergy Unknown Verified 02/02/20 02:27 enalapril AdvReac Intermediate tightness Unverified 02/02/20 02:27 in ankles fentanyl AdvReac Intermediate SEVERE Verified 02/03/20 14:33 N&V;DIZZY topiramate [From Topamax] AdvReac Intermediate fingers Unverified 02/02/20 02:27 numb clindamycin AdvReac Mild Nausea Unverified 02/03/20 14:33 codeine AdvReac Mild SICK TO Verified 02/03/20 14:33 STOMACH Quinolones AdvReac Mild N&V Verified 02/03/20 14:33 tramadol [From Ultram] AdvReac Unknown Unknown Unverified 02/03/20 14:33 Home Medications Home Medications Medication Instructions Recorded Confirmed Type Prolia 1 dose SUBCUT .TWICE A YEAR 01/14/19 02/02/20 History sumatriptan succinate 100 mg PO DAILY PRN 01/14/19 02/02/20 History clotrimazole-betamethasone 1 1 appln TOP .COMPLEX #15 gm 07/16/19 02/02/20 Rx %-0.05 % topical cream cholecalciferol (vitamin D3) 2,000 unit PO DAILY 08/29/19 02/02/20 History [Vitamin D3] terazosin 1 mg PO HS 08/29/19 02/02/20 History apixaban [Eliquis] 2.5 mg PO BID 02/02/20 02/02/20 History atorvastatin 40 mg PO DAILY 02/02/20 02/02/20 History gabapentin 100 mg PO BID 02/02/20 02/02/20 History metoprolol tartrate 25 mg PO BID 02/02/20 02/02/20 History omeprazole 20 mg PO DAILY 02/02/20 02/02/20 History Patient History Medical History Acute cholecystitis (Acute) Acute lower GI bleeding (Resolved) Atrial fibrillation with RVR (Acute) Diverticula of colon Diverticulitis (Resolved) Gastroparesis (Chronic) GERD (gastroesophageal reflux disease) (Chronic) Hyperlipidemia Hypertension (Chronic) Migraine headache (Chronic) Thoracic aortic aneurysm (Chronic) 4.1 cm Surgical History History of cataract surgery (Chronic) History of lumbar surgery (Chronic) Family History Other Coronary heart disease Social History Preferred Language: Czech Communication Ability: Effective Upper Leather Sorter Required: No Beliefs That Will Affect Care: None Current Living Situation: Alone Other Information That Helps Us Care for You: No Feels Safe at Home: Yes Safety Concerns: Feels Safe At This Time Smoking Status: Never smoker Do You Dip or Chew Tobacco: No ; Second Hand Exposure: No ; Hx Alcohol Use: Yes Hx Substance Use: No Review of Systems Review of Systems: All systems reviewed & are unremarkable except as noted in HPI & below Physical Exam Physical Exam: General- oriented x 3, not in distress, speaks in sentences with no effort or accessory muscle use Head- atraumatic Eyes- PERRL, EOMI, anicteric ENT- (+) mild JVD oropharynx clear Neck- supple, no JVD, no adenopathy, no thyromegaly; carotids +2/2, no bruits appreciated Lungs- mild rales at the bases, no wheezing, good air entry BL Heart- HR 160s irrregular then 50s regular rhythm; no murmur, no gallop, no rub appreciated Abdomen- normal bowel sounds, mildly distended, soft, nontender, no masses or hepatosplenomegaly (+) dressings in place, no bleeding/discharge Extremities- no pretibial edema, no calf tenderness; peripheral pulses intact Neuro- alert, oriented x 3; CN 2-12 grossly intact; motor 5/5 bilaterally;sensation 100% on all extremities; no other gross focal neurologic deficits Skin- warm & dry Results & Data ([facility]) Vital Signs (Past 12 Hours) Vital Signs Temp Pulse Pulse Pulse Resp BP BP 02/03/20 17:28 135 H 20 129/93 02/03/20 16:15 36.9 C 131 H 18 160/87 H 02/03/20 08:30 64 02/03/20 07:25 36.6 C 58 L 16 157/70 H 02/03/20 06:49 52 L 155/58 H Pulse Ox 02/03/20 17:28 96 02/03/20 16:15 88 L 02/03/20 08:30 02/03/20 07:25 95 02/03/20 06:49 Laboratory Results Laboratory Results - last 24 hr 02/03/20 02/03/20 17:13 17:13 WBC 9.96 RBC 4.29 Hgb 12.9 Hct 39.8 MCV 92.8 MCH 30.1 MCHC 32.4 RDW Std Deviation 45.9 RDW Coeff of Ling 13.6 Plt Count 187 MPV 10.0 Immature Gran % (Auto) 0.3 Neut % (Auto) 81.0 Lymph % (Auto) 12.1 [place] % (Auto) 5.3 Eos % (Auto) 1.1 Baso % (Auto) 0.2 Immature Gran # (Auto) 0.03 H Neut # (Auto) 8.06 H Lymph # (Auto) 1.21 [place] # (Auto) 0.53 Eos # (Auto) 0.11 Baso # (Auto) 0.02 Sodium 140 Potassium 3.6 Chloride 106 Carbon Dioxide 29 Anion Gap 4.0 BUN 17 Creatinine 0.89 Est Cr Clr Drug Dosing 35.5 Est GFR ( Amer) 69.0 Est GFR (Non-Af Amer) 59.5 BUN/Creatinine Ratio 18.9 Glucose 127 H Calcium 8.6 Magnesium 1.9 Total Bilirubin 0.7 AST 23 ALT 36 Alkaline Phosphatase 47 Total Protein 6.8 Albumin 3.2 L Globulin 3.6 Albumin/Globulin Ratio 0.9 Diagnostic Findings CXR 1. Mild cardiomegaly with components of pulmonary vascular congestion. 2. Segmental atelectasis right midlung. 3. No well-defined focal infiltrate.
[2020-02-03] MEDS: APIXABAN 2.5 MG TAB PO SCH (17:58)
[2020-02-03] MEDS ORDERED: POTASSIUM CHLORIDE 20 MEQ TABCR PO STA (18:02)
[2020-02-03] MEDS ORDERED: FUROSEMIDE 20 MG in SYRINGE 0 ML IV ONE (18:02)
[2020-02-03] MEDS: TERAZOSIN HCL 1 MG CAP PO SCH (21:33)
[2020-02-03] MEDS ORDERED: MAGNESIUM SULFATE / D5W 1 GM/100 ML BAG IV ONE (21:43)
[2020-02-04] MEDS: ACETAMINOPHEN 325 MG TAB PO PRN (00:40)
[2020-02-04 06:26] LABS: Basophils # (auto) 0.02 K/uL (0-0.2); Basophils % (auto) 0.2 %; Eosinophils # (auto) 0.25 K/uL (0-0.5); Eosinophils % (auto) 2.8 %; Hemoglobin 11.6 g/dL (12.0-16.0); Immature Granulocytes # (auto) 0.03 K/uL (0.00-0.02); Immature Granulocytes % (auto) 0.3 %; Lymphocytes # (auto) 1.59 K/uL (1.2-3.4); Lymphocytes % (auto) 17.9 %; Mean Corpuscular Hemoglobin 29.8 pg (25-34); Mean Corpuscular Hgb Conc 32.2 g/dL (32-36); Mean Corpuscular Volume 92.5 fL (80-100); Mean Platelet Volume 10.1 fL (7.4-10.4); Monocytes # (auto) 0.54 K/uL (0.11-0.59); Monocytes % (auto) 6.1 %; Neutrophils # (auto) 6.44 K/uL (1.4-6.5); Neutrophils % (auto) 72.7 %; Platelet Count 191 K/uL (130-400); RDW Coefficient of Variation 13.6 % (11.5-14.5); Red Blood Count 3.89 M/uL (4.2-5.4); White Blood Count 8.87 K/uL (4.8-10.8)
[2020-02-04 07:06] LABS: BUN Creatinine Ratio 19.3 (10-20); Calcium 8.4 mg/dl (8.5-10.1); Creatinine Clr Calc Pharmacy 32.6 ml/min; Est GFR (African American) 62.2; Est GFR (Non-African American) 53.6; Magnesium 2.4 mg/dl (1.8-2.4)
[2020-02-04 07:11] LABS: Albumin Globulin Ratio 0.9 (0.9-2); Bilirubin,Total 0.7 mg/dl (0.2-1); Globulin 3.5 gm/dl (2.5-4.0); Total Protein 6.5 gm/dl (6.4-8.2)
[2020-02-04] MEDS: METOPROLOL TARTRATE 25 MG TAB PO SCH ×2 (08:01→20:15)
[2020-02-04] MEDS: PANTOprazole 40 MG TAB PO SCH (08:02)
[2020-02-04] MEDS: CHOLECALCIFEROL 1,000 UNITS 25 MCG TAB PO SCH (08:02)
[2020-02-04] MEDS: ATORVASTATIN 40 MG TAB PO SCH (08:02)
[2020-02-04] MEDS: GABAPENTIN 100 MG CAP PO SCH ×2 (08:02→20:15)
--- NOTE | 2020-02-04 08:13 | Anesthesiology Progress Note ---
Date of Service February 04, 2020 Anesthesia Post Procedure Vital Signs Vital Signs: Temp Pulse Pulse Pulse Resp BP BP 02/04/20 07:13 36.8 C 57 L 18 133/76 02/04/20 02:43 37.3 C 60 18 109/52 L 02/03/20 23:50 37.3 C 61 16 104/58 L 02/03/20 17:32 62 151/79 H 02/03/20 17:28 135 H 20 129/93 02/03/20 16:15 36.9 C 131 H 18 160/87 H 02/03/20 08:30 64 Pulse Ox 02/04/20 07:13 97 02/04/20 02:43 95 02/03/20 23:50 95 02/03/20 17:32 02/03/20 17:28 96 02/03/20 16:15 88 L 02/03/20 08:30 Pain Intensity Right Flank: Pain Intensity: 6 Notes Mental Status: alert / awake / arousable and participated in evaluation Patient Amnestic to Procedure: Yes Nausea / Vomiting: see Notes below Pain: adequately controlled Airway Patency, RR, SpO2: stable & adequate BP & HR: stable & adequate Hydration State: stable & adequate Anesthetic Complications: no major complications apparent and Pt Satisfied with anesthetic care
[2020-02-04] MEDS ORDERED: APIXABAN 2.5 MG TAB PO SCH (09:00)
[2020-02-04] MEDS: APIXABAN 2.5 MG TAB PO SCH ×2 (10:17→20:15)
--- NOTE | 2020-02-04 10:28 | Surgery Progress Note ---
Date of Service February 04, 2020 Assessment & Plan (1) Acute cholecystitis: 85 yr old woman on eliquis with acute calculous cholecystitis now POD#2 from lap cholecystectomy. - afib with RVR last night, resumed eliquis and metoprolol now in sinus rhythm - minimal abdominal pain, controlled with PO Tylenol - No n/v - tolerating low fat diet Plan: Hopeful discharge tomorrow Encourage incentive spirometry 10x/hour ambulate hallway continue med management, appreciate assistance discharge instructions reviewed with patient (2) Atrial fibrillation with RVR: now in sinus rhythm HR 60's asymptomatic Plan: Continue Metoprolol and Eliquis hopeful discharge tomorrow Dr. Frost has seen patient and agrees with above. Subjective feeling better today no chest pain, pressure or palpitations some abdominal pain in RUQ and at incisions, improving and controlled with PO Tylenol no nausea, or vomiting tolerated low fat diet for breakfast passing gas urinating without difficulty ambulating in room Physical Exam Constitutional: WD/WN, vitals as above no acute distress Respiratory: normal respiratory effort; no respiratory distress Cardiovascular: Rate/Rhythm: regular rate and regular rhythm Gastrointestinal (Abdomen): Inspection/Auscultation: abdomen normal to inspection and + abdomen distended (mild) Percussion/Palpation: + abdomen tender (RUQ at incision sites) and abdomen soft; no guarding and abdomen not rigid Skin: no rashes, warm and dry + incision (covered with dry dressings) Psychiatric: A+Ox3, euthymic affect Results & Data Vital Signs (Past 12 Hours) Vital Signs Temp Pulse Pulse Resp BP BP Pulse Ox 02/04/20 07:13 36.8 C 57 L 18 133/76 97 02/04/20 02:43 37.3 C 60 18 109/52 L 95 02/03/20 23:50 37.3 C 61 16 104/58 L 95 Laboratory Results 02/04/20 02/04/20 02/03/20 Range/Units 05:54 05:54 17:13 WBC 8.87 (4.8-10.8) K/uL RBC 3.89 L (4.2-5.4) M/uL Hgb 11.6 L (12.0-16.0) g/dL Hct 36.0 L (37-47) % MCV 92.5 (80-100) fL MCH 29.8 (25-34) pg MCHC 32.2 (32-36) g/dL RDW Std Deviation 46.0 (36.4-46.3) fL RDW Coeff of Ling 13.6 (11.5-14.5) % Plt Count 191 (130-400) K/uL MPV 10.1 (7.4-10.4) fL Immature Gran % (Auto) 0.3 % Neut % (Auto) 72.7 % Lymph % (Auto) 17.9 % [place] % (Auto) 6.1 % Eos % (Auto) 2.8 % Baso % (Auto) 0.2 % Immature Gran # (Auto) 0.03 H (0.00-0.02) K/uL Neut # (Auto) 6.44 (1.4-6.5) K/uL Lymph # (Auto) 1.59 (1.2-3.4) K/uL [place] # (Auto) 0.54 (0.11-0.59) K/uL Eos # (Auto) 0.25 (0-0.5) K/uL Baso # (Auto) 0.02 (0-0.2) K/uL Sodium 138 140 (136-145) mmol/L Potassium 4.0 3.6 (3.5-5.1) mmol/L Chloride 107 106 (98-107) mmol/L Carbon Dioxide 27 29 (21-32) mmol/L Anion Gap 4.0 4.0 (3-11) BUN 19 H 17 (7-18) mg/dl Creatinine 0.97 0.89 (0.6-1.2) mg/dl Est Cr Clr Drug Dosing 32.6 35.5 ml/min Est GFR ( Amer) 62.2 69.0 Est GFR (Non-Af Amer) 53.6 59.5 BUN/Creatinine Ratio 19.3 18.9 (10-20) Glucose 96 127 H (70-99) mg/dl Calcium 8.4 L 8.6 (8.5-10.1) mg/dl Magnesium 2.4 1.9 (1.8-2.4) mg/dl Total Bilirubin 0.7 0.7 (0.2-1) mg/dl AST 26 23 (15-37) U/L ALT 32 36 (12-78) U/L Alkaline Phosphatase 52 47 (45-117) U/L Total Protein 6.5 6.8 (6.4-8.2) gm/dl Albumin 3.0 L 3.2 L (3.4-5.0) gm/dl Globulin 3.5 3.6 (2.5-4.0) gm/dl Albumin/Globulin Ratio 0.9 0.9 (0.9-2) 02/03/20 Range/Units 17:13 WBC 9.96 (4.8-10.8) K/uL RBC 4.29 (4.2-5.4) M/uL Hgb 12.9 (12.0-16.0) g/dL Hct 39.8 (37-47) % MCV 92.8 (80-100) fL MCH 30.1 (25-34) pg MCHC 32.4 (32-36) g/dL RDW Std Deviation 45.9 (36.4-46.3) fL RDW Coeff of Ling 13.6 (11.5-14.5) % Plt Count 187 (130-400) K/uL MPV 10.0 (7.4-10.4) fL Immature Gran % (Auto) 0.3 % Neut % (Auto) 81.0 % Lymph % (Auto) 12.1 % [place] % (Auto) 5.3 % Eos % (Auto) 1.1 % Baso % (Auto) 0.2 % Immature Gran # (Auto) 0.03 H (0.00-0.02) K/uL Neut # (Auto) 8.06 H (1.4-6.5) K/uL Lymph # (Auto) 1.21 (1.2-3.4) K/uL [place] # (Auto) 0.53 (0.11-0.59) K/uL Eos # (Auto) 0.11 (0-0.5) K/uL Baso # (Auto) 0.02 (0-0.2) K/uL Sodium (136-145) mmol/L Potassium (3.5-5.1) mmol/L Chloride (98-107) mmol/L Carbon Dioxide (21-32) mmol/L Anion Gap (3-11) BUN (7-18) mg/dl Creatinine (0.6-1.2) mg/dl Est Cr Clr Drug Dosing ml/min Est GFR ( Amer) Est GFR (Non-Af Amer) BUN/Creatinine Ratio (10-20) Glucose (70-99) mg/dl Calcium (8.5-10.1) mg/dl Magnesium (1.8-2.4) mg/dl Total Bilirubin (0.2-1) mg/dl AST (15-37) U/L ALT (12-78) U/L Alkaline Phosphatase (45-117) U/L Total Protein (6.4-8.2) gm/dl Albumin (3.4-5.0) gm/dl Globulin (2.5-4.0) gm/dl Albumin/Globulin Ratio (0.9-2)
--- NOTE | 2020-02-04 11:15 | Electrocardiogram Report ---
Test Reason : Blood Pressure : / mmHG Vent. Rate : 151 BPM Atrial Rate : 156 BPM P-R Int : 000 ms QRS Dur : 088 ms QT Int : 294 ms P-R-T Axes : 000 -12 150 degrees QTc Int : 465 ms Atrial fibrillation with rapid ventricular response Nonspecific ST and T wave abnormality Abnormal ECG When compared with ECG of 02-FEB-2020 03:57, Atrial fibrillation has replaced Sinus rhythm Vent. rate has increased BY [address] now depressed in Lateral leads Confirmed by Tuan Bee ([id number]) on 02/04/2020 11:14:45 AM Referred By: REFERRED SELF Confirmed By:Tuan Bee
--- NOTE | 2020-02-04 13:25 | Hospitalist Progress Note ---
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 with Eliquis Converted to sinus after a dose of IV lopressor Asymptomatic Continue Metoprolol tartrate 25mg BID Continue Eliquis 2.5mg BID Continue panel monitor Monitor electrolytes and replace as needed Hypertension Stable continue Metoprolol, Terazosin Acute Cholecystitis S/P Lap.Cholecystectomy by on 02/02/20 Pain is controlled Surgery on board Advance diet as tolerated Encourage to ambulate Right midlung Atelectasis: CXR:Segmental atelectasis right midlung Pain control, Incentive spirometry Prediabetes Hb A1C: 6.0 Monitor BGs GERD continue Protonix DVT Px: On Eliquis Disposition: As per Surgery Admission and Anticipated Discharge Date Admission Date: February 04, 2020 Subjective Patient is seen and examined at bedside States feeling better today Reports abdominal discomfort at incision site Dizziness resolved Denies chest pain, palpitations, SOB, nausea, vomiting Offers no other complaints Review of Systems Review of Systems: All systems reviewed & are unremarkable except as noted in HPI & below Physical Exam Physical Exam: Physical Exam: Vitals signs as noted above General Appearance:Moderately built and nourished, no apparent distress Head: normocephalic, Atraumatic Eyes: normal inspection, EOMI Neck: supple, Trachea midline Respiratory/Chest: Normal breath sounds, Right sided crackles CTA Cardiovascular: S1, S2, No murmur Abdomen/GI:Soft, mild generalized tender, Abdominal incisions in dressing, Bowel sounds present Extremities/Musculoskelatal:normal inspection, no edema Neurologic/Psych:AAOX3, grossly no focal neurological deficits Skin: normal color, warm Results & Data Results & Data ([facility]) Vital Signs (Past 12 Hours) Vital Signs Temp Pulse Resp BP BP Pulse Ox 02/04/20 11:05 36.7 C 58 L 19 120/65 92 02/04/20 07:13 36.8 C 57 L 18 133/76 97 02/04/20 02:43 37.3 C 60 18 109/52 L 95 Laboratory Results Short CBC 02/03/20 02/04/20 Range/Units 17:13 05:54 WBC 9.96 8.87 (4.8-10.8) K/uL Hgb 12.9 11.6 L (12.0-16.0) g/dL Hct 39.8 36.0 L (37-47) % Plt Count 187 191 (130-400) K/uL BMP 02/03/20 02/04/20 17:13 05:54 Sodium 140 138 Potassium 3.6 4.0 Chloride 106 107 Carbon Dioxide 29 27 BUN 17 19 H Creatinine 0.89 0.97 Glucose 127 H 96 Calcium 8.6 8.4 L Liver Function 02/03/20 02/04/20 Range/Units 17:13 05:54 Total Bilirubin 0.7 0.7 (0.2-1) mg/dl AST 23 26 (15-37) U/L ALT 36 32 (12-78) U/L Alkaline Phosphatase 47 52 (45-117) U/L Albumin 3.2 L 3.0 L (3.4-5.0) gm/dl
[2020-02-04] MEDS ORDERED: METOPROLOL TARTRATE 1 MG/ML VIAL IV PRN (13:55)
[2020-02-04] MEDS: OXYCODONE/ACETAMINOPHEN 5mg/325mg TAB PO PRN (15:41)
[2020-02-04] MEDS: TERAZOSIN HCL 1 MG CAP PO SCH (20:14)
[2020-02-05 05:49] LABS: Hematocrit (blood only) 36.5 % (37-47); Mean Corpuscular Hemoglobin 30.2 pg (25-34); Mean Corpuscular Hgb Conc 32.9 g/dL (32-36); Mean Corpuscular Volume 91.7 fL (80-100); Mean Platelet Volume 9.8 fL (7.4-10.4); Platelet Count 214 K/uL (130-400); RDW Coefficient of Variation 13.1 % (11.5-14.5); RDW Standard Deviation 44.2 fL (36.4-46.3); Red Blood Count 3.98 M/uL (4.2-5.4); White Blood Count 7.01 K/uL (4.8-10.8)
[2020-02-05 06:20] LABS: BUN Creatinine Ratio 22.9 (10-20); Calcium 8.4 mg/dl (8.5-10.1); Creatinine Clr Calc Pharmacy 36.7 ml/min; Est GFR (African American) 71.9; Potassium 3.9 mmol/L (3.5-5.1)
[2020-02-05] MEDS: METOPROLOL TARTRATE 25 MG TAB PO SCH (08:42)
[2020-02-05] MEDS: CHOLECALCIFEROL 1,000 UNITS 25 MCG TAB PO SCH (08:42)
[2020-02-05] MEDS: ATORVASTATIN 40 MG TAB PO SCH (08:42)
[2020-02-05] MEDS: APIXABAN 2.5 MG TAB PO SCH (08:42)
[2020-02-05] MEDS: PANTOprazole 40 MG TAB PO SCH (08:42)
[2020-02-05] MEDS: GABAPENTIN 100 MG CAP PO SCH (08:42)
--- NOTE | 2020-02-05 09:42 | Electrocardiogram Report ---
Test Reason : Blood Pressure : / mmHG Vent. Rate : 069 BPM Atrial Rate : 069 BPM P-R Int : 178 ms QRS Dur : 090 ms QT Int : 438 ms P-R-T Axes : 086 -06 062 degrees QTc Int : 469 ms Sinus rhythm with Premature atrial complexes with Aberrant conduction Otherwise normal ECG When compared with ECG of 03-FEB-2020 16:58, Sinus rhythm has replaced Atrial fibrillation Vent. rate has decreased BY [address] no longer depressed in Lateral leads Confirmed by Tuan Bee ([id number]) on 02/05/2020 9:42:31 AM Referred By: REFERRED SELF Confirmed By:Tuan Bee
--- NOTE | 2020-02-05 10:59 | Surgery Progress Note ---
Date of Service February 05, 2020 Assessment & Plan (1) Acute cholecystitis: 85 yr old woman on eliquis with acute calculous cholecystitis now POD#3 from lap cholecystectomy. - afib with RVR Tuesday evening, resumed eliquis and metoprolol now in sinus rhythm. EKG this am sinus rhythm, asymptomatic - minimal abdominal pain, controlled with PO Tylenol - No n/v - tolerating low fat diet Plan: cleared by medicine for discharge Discharge home today discharge instructions reviewed okay with just Tylenol as needed for pain surgical follow-up phone call in 2 weeks resume home meds (2) Atrial fibrillation with RVR: now in sinus rhythm HR 60-70's asymptomatic Plan: as above Dr. Frost has seen patient and agrees with above. Subjective feeling well this morning tolerated regular diet , no nausea or vomiting pain controlled with Tylenol, had Percocet last night did not like it no chest pain, SOB Physical Exam Constitutional: WD/WN, vitals as above no acute distress Respiratory: normal respiratory effort; no respiratory distress Gastrointestinal (Abdomen): Inspection/Auscultation: abdomen normal to inspection and normal bowel sounds Percussion/Palpation: + abdomen tender (RUQ just under ribs and at incision sites) and abdomen soft; no guarding and abdomen not rigid Skin: no rashes, warm and dry + incision (coverd with dry dressings, intact) Psychiatric: A+Ox3, euthymic affect Results & Data Vital Signs (Past 12 Hours) Vital Signs Temp Pulse Resp BP Pulse Ox 02/05/20 07:50 37.1 C 71 15 151/98 H 92 02/05/20 03:26 37.2 C 69 18 160/68 H 93 02/05/20 00:13 37.1 C 63 18 144/71 H 94 Laboratory Results 02/05/20 02/05/20 Range/Units 05:28 05:28 WBC 7.01 (4.8-10.8) K/uL RBC 3.98 L (4.2-5.4) M/uL Hgb 12.0 (12.0-16.0) g/dL Hct 36.5 L (37-47) % MCV 91.7 (80-100) fL MCH 30.2 (25-34) pg MCHC 32.9 (32-36) g/dL RDW Std Deviation 44.2 (36.4-46.3) fL RDW Coeff of Ling 13.1 (11.5-14.5) % Plt Count 214 (130-400) K/uL MPV 9.8 (7.4-10.4) fL Sodium 136 (136-145) mmol/L Potassium 3.9 (3.5-5.1) mmol/L Chloride 106 (98-107) mmol/L Carbon Dioxide 28 (21-32) mmol/L Anion Gap 2.0 L (3-11) BUN 20 H (7-18) mg/dl Creatinine 0.86 (0.6-1.2) mg/dl Est Cr Clr Drug Dosing 36.7 ml/min Est GFR ( Amer) 71.9 Est GFR (Non-Af Amer) 62.0 BUN/Creatinine Ratio 22.9 H (10-20) Glucose 104 H (70-99) mg/dl Calcium 8.4 L (8.5-10.1) mg/dl Magnesium 2.0 (1.8-2.4) mg/dl
--- NOTE | 2020-02-05 11:33 | Hospitalist Progress Note ---
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 with Eliquis Converted to sinus after a dose of IV lopressor Asymptomatic Continue Metoprolol tartrate 25mg BID Continue Eliquis 2.5mg BID Continue classroom monitor Monitor electrolytes and replace as needed Rate controlled and currently in sinus Hypertension Stable continue Metoprolol, Terazosin Acute Cholecystitis S/P Lap.Cholecystectomy by on 02/02/20 Pain is well controlled Surgery on board Tolerated low fat diet Encourage to ambulate Right midlung Atelectasis: CXR:Segmental atelectasis right midlung Pain control, Incentive spirometry Clear to auscultation today Continue Incentive Spirometry upon discharge Prediabetes Hb A1C: 6.0 Monitor BGs GERD continue Protonix DVT Px: On Eliquis Disposition: As per Surgery Admission and Anticipated Discharge Date Admission Date: February 04, 2020 Subjective Patient is seen and examined at bedside Doing well this morning Abdominal discomfort much improved Denies nausea, vomiting +Flatus, No BM yet Tolerated diet Heart rate is controlled Continues to be in sinus Offers no other complaints Review of Systems Review of Systems: All systems reviewed & are unremarkable except as noted in HPI & below Physical Exam Physical Exam: Physical Exam: Vitals signs as noted above General Appearance:Moderately built and nourished, no apparent distress Head: normocephalic, Atraumatic Eyes: normal inspection, EOMI Neck: supple, Trachea midline Respiratory/Chest: Normal breath sounds, CTA Cardiovascular: S1, S2, No murmur Abdomen/GI:Soft, Non Tender, Abdominal incisions in dressing, Bowel sounds present Extremities/Musculoskelatal:normal inspection, no edema Neurologic/Psych:AAOX3, grossly no focal neurological deficits Skin: normal color, warm Results & Data Results & Data ([facility]) Vital Signs (Past 12 Hours) Vital Signs Temp Pulse Pulse Resp BP Pulse Ox 02/05/20 11:19 36.8 C 61 24 138/72 93 02/05/20 11:17 36.8 C 60 25 H 138/72 93 02/05/20 07:50 37.1 C 71 15 151/98 H 92 02/05/20 03:26 37.2 C 69 18 160/68 H 93 02/05/20 00:13 37.1 C 63 18 144/71 H 94 Laboratory Results Short CBC 02/05/20 Range/Units 05:28 WBC 7.01 (4.8-10.8) K/uL Hgb 12.0 (12.0-16.0) g/dL Hct 36.5 L (37-47) % Plt Count 214 (130-400) K/uL BMP 02/05/20 05:28 Sodium 136 Potassium 3.9 Chloride 106 Carbon Dioxide 28 BUN 20 H Creatinine 0.86 Glucose 104 H Calcium 8.4 L
--- NOTE | 2020-02-08 16:20 | Discharge Summary ---
Date of Service February 08, 2020 Admission HPI Per Admitting Provider 85 yr old woman who presented to ER with first episode of right upper quadrant abdominal pain which started yesterday afternoon. Did not eat anything unusual for her. Pain was localized in right upper quadrant, moderate severity, radiated to her back. Thought she was having a kidney stone as she has had these before. Went for a walk, took tylenol x 2 and went to bed. Pain worsened overnight and about 1 am, was very intense. Came to the ER for evaluation. No fevers/ chills. No vomiting but did feel nauseated. No change in bowel habits. No prior abdominal operations. Principal Diagnosis Acute Cholecystitis Discharge Data Allergies Allergy/AdvReac Type Severity Reaction Status Date / Time sulfamethoxazole Allergy Intermediate RASH Verified 02/03/20 14:33 trimethoprim Allergy Intermediate RASH Verified 02/03/20 14:33 propoxyphene Allergy Mild Unknown Verified 02/02/20 02:27 Bactrim Allergy Unknown RASH Verified 10/08/17 21:39 erythromycin base Allergy Unknown Unknown Verified 02/02/20 02:27 metronidazole Allergy Unknown Unknown Verified 02/03/20 14:33 Penicillins Allergy Unknown Unknown Verified 02/02/20 02:27 ciprofloxacin [From Cipro] Allergy Unknown Verified 02/02/20 02:27 enalapril AdvReac Intermediate tightness Unverified 02/02/20 02:27 in ankles fentanyl AdvReac Intermediate SEVERE Verified 02/03/20 14:33 N&V;DIZZY topiramate [From Topamax] AdvReac Intermediate fingers Unverified 02/02/20 02:27 numb clindamycin AdvReac Mild Nausea Unverified 02/03/20 14:33 codeine AdvReac Mild SICK TO Verified 02/03/20 14:33 STOMACH Quinolones AdvReac Mild N&V Verified 02/03/20 14:33 tramadol [From Ultram] AdvReac Unknown Unknown Unverified 02/03/20 14:33 Consultations 02/02/20 04:00 ED Decision to Admit Stat 02/03/20 16:31 Consult Hospitalist Routine Procedures Performed Operation Date: 02/02/20 08:30 Actual Procedures p Laparoscopic Cholecystectomy(Not Applicable) - Bhumika Lazo MD Ordered Studies 02/02/20 02:25 US gallbladder Urgent Hospital Course (1) Acute cholecystitis: Patient was taken to operating room for laparoscopic cholecystectomy by Dr. Lazo. Patient tolerated procedure well and was transferred to recovery then to medical/surgical floor for postoperative care. POD # 1 diet advanced to low fat diet. Pain controlled with PO Tylenol. Patient went in to atrial fibrillation with RVR in the evening on POD # 1. EKG was obtained which showed afib with RVR. Medicine was consulted. She was transferred to PCU and given IV Lopressor dose x 1. Home eliquis was resumed. Patient converted to sinus rhythm. POD # 2 tolerated low fat diet, vitals stable, afebrile, sinus rhythm with HR in 60's, asymptomatic. Patient was kept overnight for cardiac monitoring. POD # 3 vitals stable, afebrile, still in sinus rhythm, pain controlled. Patient was discharged home on POD # 3 in stable condition. (2) Atrial fibrillation with RVR: Went into afib with RVR on POD # 1. Converted to sinus rhythm with IV lopressor and resumed home Eliquis. Monitored in PCU. She stayed in sinus rhythm and was asymptomatic up until and at discharge. Total Time Total Time Spent Total Time Spent (In Minutes): 30 Total Time Includes: Examination of the Patient, Discharge Planning, Medication Reconciliation and Communication With Other Providers Discharge Plan Discharge Items Patient Disposition: Home - Self-Care Reason For Visit: ACUTE CHOLECYSTITIS Discharge Diagnosis: Acute cholecystitis Atrial fibrillation with RVR Activity: Per Instructions section Exercise/Sports: Gradually increase as tolerated Non-emergency contact: Primary Care Provider and Surgeon Call non-emergency contact if: you have any medication questions, your pain is not controlled, your pain is worsening, your pain is concerning for you, you have a fever, your temperature is above 101, your wound has increased redness, your wound has increased drainage and your wound pain has increased Follow-up/Referrals: Umm Thompson MD [Primary Care Provider] - 02/08/20 11:00 am (02/08/2020 11:00 AM Taryn Montalvo MD General Internal Medicine [facility] ) Diet: Regular Addtl Attending Provider Instructions: Post-Surgical ~Discharge Instructions Activity Recommendations: - lifting limitation: (10 pounds for 2 weeks), - exercise/sex/sports limit: (nonstrenuous for 2 weeks), - driving or machine use limit: (none for 1 week), - Shower/bathe limit: (may shower beginning today) Diet: - Resume previous diet. Certain foods may not agree with you so advance diet/introduce foods as tolerated. SPECIAL CARE INSTRUCTIONS: - May shower today. Remove outer dressings and shower. Let water run over area and pat dry. - Leave steri strips on for 4 more days and then remove. - Call the surgeon's office with any questions or concerns - - (ex. temperature higher than 101 degrees F, excessive bleeding or pain). MEDICATIONS: - Resume previous medications unless instructed otherwise by your surgeon. - Tylenol 650 mg every 6 hours as needed for pain. DO NOT exceed 3,000 mg of Tylenol in a 24 hour period. - Ibuprofen 600 mg every 6 hours as needed for pain (take with food) FOLLOW UP VISIT: - Please call the [facility] surgical office to schedule a two week follow-up appointment. You likely will have a telephone postoperative call due to the current pandemic. Office number is . Please call office if you have any questions or concerns prior to this phone call visit. - Would also recommend calling your PCP office to let them know you were admitted to hospital, underwent surgery, and had onset of atrial fibrillation during your stay. Addtl Classification Inspector Provider Instructions: Follow up with your Primary Care physician in 1 week as advised --Appointment scheduled on February 07 at 11 am Pending Studies at Discharge: No Stand-Alone Forms: My [employer], Smoking Cessation Medications and DC Order Prescriptions: Continued clotrimazole-betamethasone 1-0.05 % cream 1 appln TOP .COMPLEX Qty: 15 RF: 3 sumatriptan succinate 100 mg tablet 100 mg PO DAILY PRN (Reason: Migraine Headache) RF: 0 Prolia 60 mg/mL Syringe 1 dose SUBCUT .TWICE A YEAR RF: 0 terazosin 1 mg capsule 1 mg PO HS RF: 0 cholecalciferol (vitamin D3) [Vitamin D3] 2,000 unit Tablet 2,000 unit PO DAILY RF: 0 atorvastatin 40 mg Tablet 40 mg PO DAILY RF: 0 omeprazole 20 mg Capsule,Delayed Release(Dr/Ec) 20 mg PO DAILY RF: 0 Eliquis 2.5 mg Tablet 2.5 mg PO BID RF: 0 metoprolol tartrate 25 mg Tablet 25 mg PO BID RF: 0 gabapentin 100 mg Capsule 100 mg PO BID RF: 0 Discharge Orders: Discharge Order (Routine); Ordered 02/05/20 Ordered By: Lu Serna Admission Data Admit Date/Time: 02/04/20 11:27 Attending Provider: Bhumika Lazo Admit Provider: Bhumika Lazo Primary Care Provider: Umm Thompson Other Providers: Bhumika Lazo ; Leanne Pienda ; Delfin Batres ; Gracie Archer ; Lindsey Holm ; Diana Linares ; Karol Vazquez ; Dorcas Mehta ; Modesto Smalls ; Feliz Hurtado ; Berry Angelo ; Jennifer Montalvo ; Vicky Ruffin ; Stephanie Hernandez ; Carlitos Blackburn ; Miller Mishra ; Madelaine Jiménez ; Devin Loza ; Lupe Alvarado ; Miller Lawton ; Rachel Navarro ; Kin Crane ; Aislinn Cormier I. ; Nic Prabhakar ; Erasmo Hernandez Other Interventions: Discharge Summary Assessment (RN) Last Done: 02/05/20 11:19 DC Date/Time DO NOT enter until pt leaves facility: 02/05/20 12:15
== END 2020-02-05 12:15 | disposition home or self-care (01) | DRG 419 ==
LOC: ED 01:53 → 3E 01:53 → 2E 02-03 18:40

== ENCOUNTER 2020-02-28 13:56 | Inpatient (IN) ==
[2020-02-28] MEDS ORDERED: ONDANSETRON INJ 2 MG/ML 2 ML VIAL IV PRN (14:02)
[2020-02-28] MEDS ORDERED: ACETAMINOPHEN 325 MG TAB PO PRN ×2 (14:02→14:51)
[2020-02-28] MEDS ORDERED: POLYETHYLENE (MIRALAX) 17 GM PACK PO PRN ×2 (14:02→14:51)
[2020-02-28 16:19] LABS: Basophils # (auto) 0.08 K/uL (0-0.2); Basophils % (auto) 0.9 %; Eosinophils # (auto) 1.31 K/uL (0-0.5); Eosinophils % (auto) 14.7 %; Hematocrit (blood only) 42.2 % (37-47); Hemoglobin 13.9 g/dL (12.0-16.0); Immature Granulocytes # (auto) 0.04 K/uL (0.00-0.02); Immature Granulocytes % (auto) 0.4 %; Lymphocytes # (auto) 1.19 K/uL (1.2-3.4); Lymphocytes % (auto) 13.4 %; Mean Corpuscular Hemoglobin 30.5 pg (25-34); Mean Corpuscular Hgb Conc 32.9 g/dL (32-36); Mean Corpuscular Volume 92.7 fL (80-100); Mean Platelet Volume 10.1 fL (7.4-10.4); Monocytes # (auto) 0.53 K/uL (0.11-0.59); Neutrophils # (auto) 5.74 K/uL (1.4-6.5); Neutrophils % (auto) 64.6 %; Platelet Count 227 K/uL (130-400); RDW Coefficient of Variation 13.7 % (11.5-14.5); RDW Standard Deviation 46.6 fL (36.4-46.3); Red Blood Count 4.55 M/uL (4.2-5.4); White Blood Count 8.89 K/uL (4.8-10.8)
--- NOTE | 2020-02-28 16:19 | History & Physical Report ---
Date of Service February 28, 2020 Assessment & Plan (1) RUQ abdominal pain: (2) Elevated LFTs: Pt is 85 y/o F with PMH paroxysmal atrial fibrillation on Eliquis, HTN, dyslipidemia, borderline tachy michael syndrome, migraine, GERD, prediabetes, enlarged thoracic aorta presented as direct admission for RUQ pain and elevated LFTs. Recent acute cholecystitis s/p cholecystectomy on 02/02/[address] Bhumika Lazo. Had been doing well however past couple of days started experiencing RUQ pain, poor appetite, nausea. Concern for retained stone in common bile duct. DDX: bile leak, pancreatitis however normal lipase Afebrile, No leukocytosis. T. Bili: 2.1, AST: 102, ALT: 138, Alk Phos: 508, Li pase: 164 -Clear liquids for now -NPO midnight -IVF -Morphine prn pain -GI suggests can hold on antibiotics at this time as afebrile and no leukocytosis and with pt having extensive allergy list -GI consult, recommend MRCP today and plan for ERCP tomorrow -CBC, CMP, Liver profile in am (3) Paroxysmal atrial fibrillation: Current sinus rhythm -Hold Eliquis for now pending procedure -Continue metoprolol (4) Hypertension: -Continue terazosin (5) Hyperlipidemia: -Hold statin for now (6) Migraine headache: -Continue gabapentin (7) GERD (gastroesophageal reflux disease): -Continue PPI DVT Prophylaxis -SCDs as holding Eliquis currently Full Code as per discussion with pt Follows with Dr Delcid for routine care Pt was seen and care coordinated with Dr Hernandez. See addendum Admission and Anticipated Discharge Date Admission Date: February 28, 2020 History of Present Illness Chief Complaint: RUQ pain Primary Care Provider: Umm Thompson MD Pt is 85 y/o F with PMH paroxysmal atrial fibrillation on Eliquis, HTN, dyslipidemia, borderline tachy michael syndrome, migraine, GERD, prediabetes, enlarged thoracic aorta presented as direct admission for right upper quadrant pain and elevated LFTs. Patient with history acute cholecystitis s/p cholecystectomy on 02/02/[address] Bhumika Lazo. Postop patient experienced A. fib RVR which converted to sinus rhythm with 1 dose IV Lopressor. Patient was discharged home back on her Eliquis and continued on her metoprolol. Patient had been doing well however past couple of days started experiencing right upper quadrant pain, poor appetite, nausea. Today was seen in Dr. Lazo's office and outpatient labs with no leukocytosis, had noted elevated LFTs. Patient being admitted for suspected retained gallstone and for GI consultation for probable ERCP. Pt ate half Frisian muffin this morning, for lunch had couple bites of chicken noodle soup and half a banana. Denies fever/chills, diaphoresis, GALICIA, dizziness, syncope, vision changes, neck pain, CP, SOB, orthopnea, palpitations, cough, sore throat, choking, otalgia, rhinorrhea, paresthesias, weakness, extremity weakness, extremity edema, rashes, urinary symptoms. Allergies Allergy/AdvReac Type Severity Reaction Status Date / Time sulfamethoxazole Allergy Intermediate RASH Verified 02/03/20 14:33 trimethoprim Allergy Intermediate RASH Verified 02/03/20 14:33 propoxyphene Allergy Mild Unknown Verified 02/02/20 02:27 Bactrim Allergy Unknown RASH Verified 10/08/17 21:39 erythromycin base Allergy Unknown Unknown Verified 02/02/20 02:27 metronidazole Allergy Unknown Unknown Verified 02/03/20 14:33 Penicillins Allergy Unknown Unknown Verified 02/02/20 02:27 ciprofloxacin [From Cipro] Allergy Unknown Verified 02/02/20 02:27 enalapril AdvReac Intermediate tightness Unverified 02/02/20 02:27 in ankles fentanyl AdvReac Intermediate SEVERE Verified 02/03/20 14:33 N&V;DIZZY topiramate [From Topamax] AdvReac Intermediate fingers Unverified 02/02/20 02:27 numb clindamycin AdvReac Mild Nausea Unverified 02/03/20 14:33 codeine AdvReac Mild SICK TO Verified 02/03/20 14:33 STOMACH Quinolones AdvReac Mild N&V Verified 02/03/20 14:33 tramadol [From Ultram] AdvReac Unknown Unknown Unverified 02/03/20 14:33 Home Medications Home Medications Medication Instructions Recorded Confirmed Type Prolia 1 dose SUBCUT .TWICE A YEAR 01/14/19 02/28/20 History sumatriptan succinate 100 mg PO DAILY PRN 01/14/19 02/28/20 History clotrimazole-betamethasone 1 1 appln TOP .COMPLEX #15 gm 07/16/19 02/28/20 Rx %-0.05 % topical cream cholecalciferol (vitamin D3) 2,000 unit PO DAILY 08/29/19 02/28/20 History [Vitamin D3] terazosin 1 mg PO HS 08/29/19 02/28/20 History Eliquis 2.5 mg PO BID 02/02/20 02/28/20 History atorvastatin 40 mg PO HS 02/02/20 02/28/20 History gabapentin 200 mg PO HS 02/02/20 02/28/20 History metoprolol tartrate 25 mg PO BID 02/02/20 02/28/20 History omeprazole 20 mg PO DAILY 02/02/20 02/28/20 History Past Med/Surg History Medical History (Updated 02/28/20 @ 17:41 by Madelaine Jiménez PA-C) Acute cholecystitis (Acute) Acute lower GI bleeding (Resolved) Atrial fibrillation with RVR (Acute) Diverticula of colon Diverticulitis (Resolved) Gastroparesis (Chronic) GERD (gastroesophageal reflux disease) (Chronic) Hyperlipidemia Hypertension (Chronic) Migraine headache (Chronic) Paroxysmal atrial fibrillation Thoracic aortic aneurysm (Chronic) 4.1 cm Surgical History History of cataract surgery (Chronic) History of cholecystectomy 02/02/2020; [facility]; Dr Bhumika Lazo History of lumbar surgery (Chronic) Family History Other Coronary heart disease Social History Preferred Language: Frisian Communication Ability: Effective 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 Beliefs That Will Affect Care: None Current Living Situation: Alone Other Information That Helps Us Care for You: No Feels Safe at Home: Yes Safety Concerns: Feels Safe At This Time Smoking Status: Never smoker Second Hand Exposure: No ; Hx Alcohol Use: No Hx Substance Use: No Review of Systems Review of Systems: All systems reviewed & are unremarkable except as noted in HPI & below Physical Exam Physical Exam: General: no acute distress, WDWN Head: normocephalic, atraumatic Eyes: PERRL, EOM's intact, conjunctiva non-injected, anicteric ENT: normal inspection external ears, nose, mucous membranes moist Neck: supple, trachea midline Lungs: clear, no respiratory distress, no wheezing/rhonchi/rales CV: RRR, no murmur, no pretibial edema Abd: normal BS, +healed surgical incision to abdomen, soft, +tenderness to palpation RUQ, otherwise abdomen non-tender Ext: no cyanosis, no calf tenderness Neuro: A&O x 3, no focal deficits noted, normal affect Skin: warm, dry Results & Data Results & Data ([facility]) Vital Signs (Past 12 Hours) Vital Signs Temp Pulse Pulse Resp BP Pulse Ox 02/28/20 15:46 36.7 C 62 54 L 16 175/80 H 94 Laboratory Results Short CBC 02/28/20 Range/Units 16:05 WBC 8.89 (4.8-10.8) K/uL Hgb 13.9 (12.0-16.0) g/dL Hct 42.2 (37-47) % Plt Count 227 (130-400) K/uL BMP 02/28/20 16:05 Sodium 135 L Potassium 4.0 Chloride 103 Carbon Dioxide 27 BUN 20 H Creatinine 0.78 Glucose 95 Calcium 9.5 Liver Function 02/28/20 Range/Units 16:05 Total Bilirubin 2.1 H (0.2-1) mg/dl Direct Bilirubin 1.2 H (0-0.2) mg/dl AST 102 H (15-37) U/L ALT 138 H (12-78) U/L Alkaline Phosphatase 508 H (45-117) U/L Albumin 3.7 (3.4-5.0) gm/dl ECG Rate (beats per minute): 55 Rhythm: sinus bradycardia Supervising Physician Co-Signing Physician Notes IM ATTENDING : Patient seen and examined. History obtained from patient and records. Preceding documentation by Ms. Madelaine Jiménez PA-C reviewed. FINAL ASSESSMENT AND PLAN as follows : Abdominal pain with abnormal LFTs secondary to biliary tract obstruction Recent cholecystitis status post cholecystectomy No sepsis for now Hypertensive urgency secondary to discomfort Hyperlipidemia statin Rx PAF, currently NSR, on home Eliquis hx PVD Prediabetes, hemoglobin A1c of 6 today Medical telemetry for hypertensive urgency Analgesia Facilitate home BP meds, may need titration GI consult RE biliary tract obstruction N.p.o. after midnight in anticipation of endoscopic procedure Hold Eliquis for now in anticipation of procedure Resume Eliquis once bleeding risk is deemed to be minimal and negligible following GI evaluation. DVT prophylaxis SCDs RE while Eliquis on hold Full code Text document was generated using [employer] recognition software. It may contain grammatical or spelling errors. Kindly contact undersigned for clarification of any documentation item in question. (1) Migraine headache Intractability: not intractable Migraine type: without aura Status migrainosus presence: without status migrainosus Qualified Code(s): G43.009 - Migraine without aura, not intractable, without status migrainosus (2) Hypertension Hypertension type: essential hypertension Qualified Code(s): I10 - Essential (primary) hypertension
[2020-02-28] MEDS ORDERED: LORazepam 0.5 MG TAB SL STA (16:30)
[2020-02-28 16:31] LABS: INR 1.1 (0.9-1.1); Partial Thromboplastin Time 28.9 Seconds (21.0-31.0); Prothrombin Time 11.9 Seconds (9.0-12.0)
[2020-02-28 16:44] LABS: Albumin Level 3.7 gm/dl (3.4-5.0); BUN Creatinine Ratio 26.1 (10-20); Calcium 9.5 mg/dl (8.5-10.1); Creatinine Clr Calc Pharmacy 52.7 ml/min; Est GFR (African American) 80.9; Est GFR (Non-African American) 69.8
[2020-02-28 16:48] LABS: Albumin Globulin Ratio 0.8 (0.9-2); Bilirubin,Total 2.1 mg/dl (0.2-1); Globulin 4.4 gm/dl (2.5-4.0); Total Protein 8.1 gm/dl (6.4-8.2)
[2020-02-28 16:50] LABS: Bilirubin Direct 1.2 mg/dl (0-0.2)
--- NOTE | 2020-02-28 17:53 | Magnetic Resonance Report ---
MR MRCP HISTORY: 85 years-old Female RUQ pain, elevated lfts acute right upper quadrant abdominal pain with elevated LFTs. Reported history of recent cholecystectomy. COMPARISON: CT abdomen and pelvis 03/01/2019 TECHNIQUE: MRCP was obtained according to institutional protocol without use of IV contrast. FINDINGS: Moderate cardiomegaly. Trace perisplenic and perihepatic free fluid. The spleen, adrenal glands and l iver appear unremarkable. Mild generalized pancreatic atrophy. Postoperative changes of interval chol ecystectomy. There is no postoperative fluid collection. Intrahepatic or extrahepatic biliary ductal dilation. The common bile duct is normal in caliber measuring 5 mm. There is artifact from a small to moderate air-filled duodenal diverticulum which measures up to 2.6 cm transversely. The common bile duct adjacent to the diverticulum demonstrates a focal apparent filling defect measuring up to 6 mm ( for example please see image 65 of series 5, image 17 of series 4 and image 2 of series 6 for example ). A normal common bile duct just proximal to the ampulla is noted distal to this apparent filling de fect. There is no pancreatic ductal dilation. T2 hyperintense foci of the kidneys suggest renal cysts , however are incompletely characterized on this study. Aorta and IVC are unremarkable. There is no a denopathy. Mild fecal retention. Soft tissues are unremarkable. Degenerative changes of the spine. IMPRESSION: Postoperative changes of interval cholecystectomy. There is no intrahepatic or extrahepatic biliary d uctal dilation however there is an apparent filling defect within the mid common bile duct adjacent t o a small to moderate air-filled duodenal diverticulum which likely accounts for the signal abnormali ty. Choledocholithiasis considered less likely however is also a differential consideration. Correlat ion with LFTs recommended. ACT 112: Negative or not required by law. The above report was generated using voice recognition software. It may contain grammatical, syntax o r spelling errors. Electronically signed by: Pablito Joseph M.D. 02/28/2020 5:51 PM
[2020-02-28] MEDS ORDERED: OXYCODONE HCL IR 5 MG TAB (IMMEDIATE RELEASE) PO PRN (19:30)
[2020-02-28] MEDS: METOPROLOL TARTRATE 25 MG TAB PO SCH (20:45)
[2020-02-28] MEDS: TERAZOSIN HCL 1 MG CAP PO SCH (20:47)
[2020-02-28] MEDS: GABAPENTIN 100 MG CAP PO SCH (20:48)
[2020-02-28] MEDS ORDERED: METOPROLOL TARTRATE 25 MG TAB PO SCH (21:00)
[2020-02-28] MEDS ORDERED: D5W AND NSS 1,000 ML IV SCH (23:00)
[2020-02-29] MEDS: ONDANSETRON INJ 2 MG/ML 2 ML VIAL IV PRN (00:17)
[2020-02-29] MEDS: MoRPHine SULFATE 2 MG/ML CARP IV PRN ×3 (00:17→18:03)
[2020-02-29] MEDS: PROMETHAZINE HCL 12.5 MG in SODIUM CHLORIDE 0.9% 50 ML IV PRN ×2 (04:27→17:53)
[2020-02-29 07:19] LABS: Hematocrit (blood only) 39.6 % (37-47); Mean Corpuscular Hgb Conc 32.8 g/dL (32-36); Mean Corpuscular Volume 91.2 fL (80-100); Mean Platelet Volume 10.2 fL (7.4-10.4); Platelet Count 186 K/uL (130-400); RDW Coefficient of Variation 13.5 % (11.5-14.5); RDW Standard Deviation 45.1 fL (36.4-46.3); Red Blood Count 4.34 M/uL (4.2-5.4); White Blood Count 6.55 K/uL (4.8-10.8)
[2020-02-29 07:38] LABS: Albumin Level 3.2 gm/dl (3.4-5.0); BUN Creatinine Ratio 20.7 (10-20); Calcium 8.5 mg/dl (8.5-10.1); Creatinine Clr Calc Pharmacy 49.4 ml/min; Est GFR (Non-African American) 81.9; Potassium 3.5 mmol/L (3.5-5.1)
[2020-02-29 07:47] LABS: Albumin Globulin Ratio 0.8 (0.9-2); Bilirubin,Total 1.3 mg/dl (0.2-1); Globulin 4.1 gm/dl (2.5-4.0); Total Protein 7.3 gm/dl (6.4-8.2)
[2020-02-29] MEDS: METOPROLOL TARTRATE 25 MG TAB PO SCH ×2 (07:53→21:12)
[2020-02-29] MEDS: PANTOprazole 40 MG TAB PO SCH (07:53)
[2020-02-29] MEDS: SUMAtriptan succinate 100 MG TAB PO PRN (09:02)
--- NOTE | 2020-02-29 10:20 | Gastrointestinal Consultation ---
Date of Consultation February 29, 2020 Assessment & Plan (1) Elevated LFTs: Ms. Xiong is experiencing RUQ pain, LFT elevation one week post lap choley. Imaging consistent with a common bile duct defect, possibly a duodenal diverticulum pressing on the CBD vs a small stone. Also considered is a bile leak. Plan: EUS +/- ERCP by Dr. Pardeep Lazo today. Considered antibiotic coverage for possible cholangitis but deferred due to many allergies and no clear evidence of infection (normal WBCs, no fevers). Please keep NPO today. Further recommendations to follow procedure. Present on Admission?: Yes Supervising Physician Co-Signing Physician Notes I saw and evaluated the patient. She presents with symptoms suggestive of choledocholithiasis as she has had abdominal discomfort for the past few days. She has a significant elevation of her liver associated enzymes and an MRCP which shows a possible filling defect in the mid common bile duct. Given this we will proceed directly with ERCP this afternoon. I have also taken the liberty of consenting the patient for endoscopic ultrasound should be be having difficulty with her procedure. Physical exam: Mild right upper quadrant tenderness noted We have discussed the risks and benefits to include bleeding, infection, perforation, pancreatitis and need for follow-up studies Plan ERCP today Indocin to be given during exam History of Present Illness Reason for Consultation: Elevated LFTs Requesting Physician: Dr. Blackburn/Madelaine Jiménez Attending Physician: Carlitos Blackburn MD History of Present Illness Ms. Alison Xiong is an 85 yr old female pt of Dr. Delcid with a hx of a-fib on Eliquis, HTN, dyslipidemia, borderline tachy michael syndrome, migraines, GERD, prediabetes, enlarged thoracic aorta presented who underwent lap cholecystectomy on 02/01 for acute/chronic cholecystitis. She did well initially but yesterday, when seen for her post op visit reported abdominal pain. LFTs were noted to be elevated and she was directly admitted. On arrival, MRCP with mid CBD filling defect, duodenal diverticulum vs. small choledocholithiasis. LFTs: Bili 2.1 yesterday ->1.3 today, AST 102->71, ALT 138- >108, Alk Phos 508->465. On exam, she is afebrile awake, alert, oriented and her main concern this morning is migraine. Abdomen is mildly tender in the RUQ. Allergies Allergy/AdvReac Type Severity Reaction Status Date / Time sulfamethoxazole Allergy Intermediate RASH Verified 02/03/20 14:33 trimethoprim Allergy Intermediate RASH Verified 02/03/20 14:33 propoxyphene Allergy Mild Unknown Verified 02/02/20 02:27 Bactrim Allergy Unknown RASH Verified 10/08/17 21:39 erythromycin base Allergy Unknown Unknown Verified 02/02/20 02:27 metronidazole Allergy Unknown Unknown Verified 02/03/20 14:33 Penicillins Allergy Unknown Unknown Verified 02/02/20 02:27 ciprofloxacin [From Cipro] Allergy Unknown Verified 02/02/20 02:27 enalapril AdvReac Intermediate tightness Unverified 02/02/20 02:27 in ankles fentanyl AdvReac Intermediate SEVERE Verified 02/03/20 14:33 N&V;DIZZY topiramate [From Topamax] AdvReac Intermediate fingers Unverified 02/02/20 02:27 numb clindamycin AdvReac Mild Nausea Unverified 02/03/20 14:33 codeine AdvReac Mild SICK TO Verified 02/03/20 14:33 STOMACH Quinolones AdvReac Mild N&V Verified 02/03/20 14:33 tramadol [From Ultram] AdvReac Unknown Unknown Unverified 02/03/20 14:33 Home Medications Home Medications Medication Instructions Recorded Confirmed Type Prolia 1 dose SUBCUT .TWICE A YEAR 01/14/19 02/28/20 History sumatriptan succinate 100 mg PO DAILY PRN 01/14/19 02/28/20 History clotrimazole-betamethasone 1 1 appln TOP .COMPLEX #15 gm 07/16/19 02/28/20 Rx %-0.05 % topical cream cholecalciferol (vitamin D3) 2,000 unit PO DAILY 08/29/19 02/28/20 History [Vitamin D3] terazosin 1 mg PO HS 08/29/19 02/28/20 History Eliquis 2.5 mg PO BID 02/02/20 02/28/20 History atorvastatin 40 mg PO HS 02/02/20 02/28/20 History gabapentin 200 mg PO HS 02/02/20 02/28/20 History metoprolol tartrate 25 mg PO BID 02/02/20 02/28/20 History omeprazole 20 mg PO DAILY 02/02/20 02/28/20 History Patient History Medical History Acute cholecystitis (Acute) Acute lower GI bleeding (Resolved) Atrial fibrillation with RVR (Acute) Diverticula of colon Diverticulitis (Resolved) Gastroparesis (Chronic) GERD (gastroesophageal reflux disease) (Chronic) Hyperlipidemia Hypertension (Chronic) Migraine headache (Chronic) Paroxysmal atrial fibrillation Thoracic aortic aneurysm (Chronic) 4.1 cm Surgical History History of cataract surgery (Chronic) History of cholecystectomy 02/02/2020; [facility]; Dr Bhumika Lazo History of lumbar surgery (Chronic) Family History Other Coronary heart disease Social History Preferred Language: Sami Communication Ability: Effective Rehabilitation Liaison Required: No Beliefs That Will Affect Care: None marital status: / Current Living Situation: Alone Other Information That Helps Us Care for You: No Feels Safe at Home: Yes Safety Concerns: Feels Safe At This Time Smoking Status: Never smoker Do You Dip or Chew Tobacco: No ; Second Hand Exposure: No ; Hx Alcohol Use: No Hx Substance Use: No Review of Systems Review of Systems: ROS: Gen: + migraine; Denies weakness, fevers, weight loss Eyes: No eye redness, or pain, no recent vision changes Resp: No SOB, no cough Cardio: No palpitations/irregular beats, no chest pain GI: See HPI : Denies pain on urination Skin: No jaundice, itching or new rashes Physical Exam Constitutional: WD/WN, vitals as above uncomfortable appearing Eyes: PERRL, conjunctivae normal, anicteric sclerae ENMT: external ear and nose normal, oropharynx normal Neck: trachea midline, no thyromegaly Respiratory: normal respiratory effort, lungs clear to auscultation Cardiovascular: RRR, no murmur, no edema Gastrointestinal (Abdomen): normal bowel sounds, soft, nontender, no he patosplenomegaly Skin: no rashes, warm and dry Neurologic: PERRL, EOMI, accommodation nl, no face palsy, no dysarthria Psychiatric: A+Ox3, euthymic affect Results & Data ([facility]) Vital Signs (Past 12 Hours) Vital Signs Temp Pulse Pulse Resp BP BP Pulse Ox 02/29/20 07:35 36.7 C 80 20 168/82 H 96 02/29/20 04:12 36.6 C 66 18 158/89 H 95 02/29/20 01:00 51 L 02/28/20 23:53 35.7 C L 62 21 185/61 H 97
--- NOTE | 2020-02-29 11:11 | Hospitalist Progress Note ---
Date of Service February 29, 2020 Assessment & Plan (1) RUQ abdominal pain: (2) Elevated LFTs: Patient is an 85-year-old female with H/O Paroxysmal atrial fibrillation on Eliquis, HTN, dyslipidemia, borderline tachy michael syndrome, migraine, GERD, prediabetes, enlarged thoracic aorta presents with RUQ pain and elevated LFTs. Postcholecystectomy syndrome H/O cholecystectomy on 02/02/[address] Lazo for acute cholecystitis DD: Duodenal diverticulum, CBD stone, biliary leak --MRCP:Postoperative changes of interval cholecystectomy. There is no intrahepatic or extrahepatic biliary ductal dilation however there is an apparent filling defect within the mid common bile duct adjacent to a small to moderate air-filled duodenal diverticulum which likely accounts for the signal abnormality. Choledocholithiasis considered less likely however is also a differential consideration. Correlation with LFTs recommended. --Planned for EUS with or without ERCP --Appreciate GI input --NPO for now --Continue IV fluids, pain control --Monitor LFTs --Low threshold to start antibiotics if patient develops fever, chills, leukocytosis (3) Paroxysmal atrial fibrillation: Rate controlled Continue metoprolol Hold Eliquis for now due to procedure (4) Hypertension: Continue home medications (5) Hyperlipidemia: Continue to hold statin (6) Migraine headache: Continue gabapentin Continue sumatriptan as needed (7) GERD (gastroesophageal reflux disease): Continue Protonix DVT Px: SCDs for now Resume Eliquis as able Code Status Full Code Admission and Anticipated Discharge Date Admission Date: February 28, 2020 Subjective Patient is seen and examined at bedside Abdominal pain, headache improving States having nausea but no vomiting Denies any fever, chills, chest pain, shortness of breath, dizziness Offers no other complaints Review of Systems Review of Systems: All systems reviewed & are unremarkable except as noted in HPI & below Physical Exam Physical Exam: Physical Exam: Vitals signs as noted above General Appearance:Moderately built and nourished, no apparent distress Head: normocephalic, Atraumatic Eyes: normal inspection, EOMI Neck: supple, Trachea midline Respiratory/Chest: Normal breath sounds, CTA Cardiovascular: Irregularly irregular, No murmur Abdomen/GI:Soft, right upper quadrant tender, no guarding or rigidity, bowel sounds present Extremities/Musculoskelatal:normal inspection, no edema Neurologic/Psych:AAOX3, grossly no focal neurological deficits Skin: normal color, warm Results & Data Results & Data ([facility]) Vital Signs (Past 12 Hours) Vital Signs Temp Pulse Pulse Resp BP BP Pulse Ox 02/29/20 11:02 66 02/29/20 07:35 36.7 C 80 20 168/82 H 96 02/29/20 04:12 36.6 C 66 18 158/89 H 95 02/29/20 01:00 51 L 02/28/20 23:53 35.7 C L 62 21 185/61 H 97 Laboratory Results Short CBC 02/28/20 02/29/20 Range/Units 16:05 06:58 WBC 8.89 6.55 (4.8-10.8) K/uL Hgb 13.9 13.0 (12.0-16.0) g/dL Hct 42.2 39.6 (37-47) % Plt Count 227 186 (130-400) K/uL BMP 02/28/20 02/29/20 16:05 06:58 Sodium 135 L 139 Potassium 4.0 3.5 Chloride 103 108 H Carbon Dioxide 27 27 BUN 20 H 13 Creatinine 0.78 0.64 Glucose 95 135 H Calcium 9.5 8.5 Liver Function 02/28/20 02/29/20 Range/Units 16:05 06:58 Total Bilirubin 2.1 H 1.3 H (0.2-1) mg/dl Direct Bilirubin 1.2 H 1.0 H (0-0.2) mg/dl AST 102 H 71 H (15-37) U/L ALT 138 H 108 H (12-78) U/L Alkaline Phosphatase 508 H 465 H (45-117) U/L Albumin 3.7 3.2 L (3.4-5.0) gm/dl (1) Migraine headache Intractability: not intractable Migraine type: without aura Status migrainosus presence: without status migrainosus Qualified Code(s): G43.009 - Migraine without aura, not intractable, without status migrainosus (2) Hypertension Hypertension type: essential hypertension Qualified Code(s): I10 - Essential (primary) hypertension
[2020-02-29] MEDS ORDERED: ePHEDrine sulfate 50 MG/ML AMP IV PRN (11:46)
[2020-02-29] MEDS ORDERED: ONDANSETRON INJ 2 MG/ML 2 ML VIAL IV PRN (11:46)
[2020-02-29] MEDS ORDERED: ATROPINE SULFATE 0.1 MG/ML 10ML SYR IV PRN (11:46)
--- NOTE | 2020-02-29 11:51 | Anesthesiology Consultation ---
Date of Service February 29, 2020 Assessment & Plan (1) Encounter for pre-operative examination: Chart Review Chart Review: Acceptable Risk for Surgery and Patient NOT seen in Pre Admission Testing Consults Requested none History Surgery Operation Date: 02/29/20 07:00 Proposed Procedures p Endoscopic Retrograde Cholangiopancreatogram - Pardeep Lazo Height/Weight Height: 5 ft 1 in Weight: 51.7 kg Allergies Allergy/AdvReac Type Severity Reaction Status Date / Time sulfamethoxazole Allergy Intermediate RASH Verified 02/03/20 14:33 trimethoprim Allergy Intermediate RASH Verified 02/03/20 14:33 propoxyphene Allergy Mild Unknown Verified 02/02/20 02:27 Bactrim Allergy Unknown RASH Verified 10/08/17 21:39 erythromycin base Allergy Unknown Unknown Verified 02/02/20 02:27 metronidazole Allergy Unknown Unknown Verified 02/03/20 14:33 Penicillins Allergy Unknown Unknown Verified 02/02/20 02:27 ciprofloxacin [From Cipro] Allergy Unknown Verified 02/02/20 02:27 enalapril AdvReac Intermediate tightness Unverified 02/02/20 02:27 in ankles fentanyl AdvReac Intermediate SEVERE Verified 02/03/20 14:33 N&V;DIZZY topiramate [From Topamax] AdvReac Intermediate fingers Unverified 02/02/20 02:27 numb clindamycin AdvReac Mild Nausea Unverified 02/03/20 14:33 codeine AdvReac Mild SICK TO Verified 02/03/20 14:33 STOMACH Quinolones AdvReac Mild N&V Verified 02/03/20 14:33 tramadol [From Ultram] AdvReac Unknown Unknown Unverified 02/03/20 14:33 Medications Home Medications Medication Instructions Recorded Confirmed Last Taken Prolia 1 dose SUBCUT .TWICE A YEAR 01/14/19 02/28/20 04/09/19 sumatriptan succinate 100 mg PO DAILY PRN 01/14/19 02/28/20 08/28/19 clotrimazole-betamethasone 1 1 appln TOP .COMPLEX #15 gm 07/16/19 02/28/20 Unknown %-0.05 % topical cream cholecalciferol (vitamin D3) 2,000 unit PO DAILY 08/29/19 02/28/20 08/28/19 [Vitamin D3] terazosin 1 mg PO HS 08/29/19 02/28/20 02/27/20 Eliquis 2.5 mg PO BID 02/02/20 02/28/20 02/28/20 atorvastatin 40 mg PO HS 02/02/20 02/28/20 02/27/20 gabapentin 200 mg PO HS 02/02/20 02/28/20 02/27/20 metoprolol tartrate 25 mg PO BID 02/02/20 02/28/20 02/28/20 omeprazole 20 mg PO DAILY 02/02/20 02/28/20 02/28/20 Active Medications Generic Name Dose Route Start Last Admin Trade Name Freq PRN Reason Stop Dose Admin Gabapentin 200 mg 02/28/20 21:00 02/28/20 20:48 Neurontin PO 03/29/20 20:59 200 mg HS MANUELITO Administration Promethazine HCl 12.5 mg/ 50.5 mls @ 202 mls/hr 02/28/20 19:29 02/29/20 05:00 Sodium Chloride IV 03/29/20 19:28 Infused Q6H PRN Infusion Nausea And Vomiting Metoprolol Tartrate 25 mg 02/28/20 19:45 02/29/20 07:53 Lopressor PO 03/29/20 19:44 25 mg BID MANUELITO Administration Morphine Sulfate 2 mg 02/28/20 16:05 02/29/20 03:39 Morphine Sulfate IV 03/13/20 16:04 2 mg Q4H PRN Administration Pain Ondansetron HCl 4 mg 02/28/20 14:51 02/29/20 00:17 Zofran IV 03/29/20 14:50 4 mg Q6H PRN Administration Nausea Oxycodone HCl 5 mg 02/28/20 19:30 02/28/20 20:48 Roxicodone Immediate Rel PO 03/13/20 19:29 5 mg Q4H PRN Administration Pain Pantoprazole Sodium 40 mg 02/29/20 08:00 02/29/20 07:53 Protonix PO 03/30/20 07:59 40 mg DAILY@0800 MANUELITO Administration Sumatriptan Succinate 100 mg 02/29/20 07:59 02/29/20 09:02 Imitrex PO 03/30/20 07:58 100 mg DAILY PRN Administration Migraine Headache Terazosin HCl 1 mg 02/28/20 21:00 02/28/20 20:47 Hytrin PO 03/29/20 20:59 1 mg HS MANUELITO Administration Past Medical History Medical History Acute cholecystitis (Acute) Acute lower GI bleeding (Resolved) Atrial fibrillation with RVR (Acute) Diverticula of colon Diverticulitis (Resolved) Gastroparesis (Chronic) GERD (gastroesophageal reflux disease) (Chronic) Hyperlipidemia Hypertension (Chronic) Migraine headache (Chronic) Paroxysmal atrial fibrillation Thoracic aortic aneurysm (Chronic) 4.1 cm Exercise / Class Metabolic Activity II 4-5 Yardwork/Stairs/Walk up hill Past Family History Family History Other Coronary heart disease Past Surgical History Surgical History History of cataract surgery (Chronic) History of cholecystectomy 02/02/2020; [facility]; Dr Bhumika Lazo History of lumbar surgery (Chronic) Lap willam: MAC 3, grade 2 view. 7.0ETT. No issues. No fentanyl given, dilaudid only. Past Anesthesia History No Hx of Anesthesia Complications and No Family Hx of Anesthesia Complications History of PONV No Hx of PONV and No Hx of Motion Sickness Social History Smoking Status: Never smoker Do You Dip or Chew Tobacco: No Hx Alcohol Use: No alcohol intake frequency: holidays/special occasions only Hx Substance Use: No substance use type: does not use Physical Exam Vital Signs Last Vital Signs Temp 36.7 C 02/29/20 07:35 Pulse 66 02/29/20 11:02 Resp 20 02/29/20 07:35 BP 168/82 H 02/29/20 07:35 Pulse Ox 96 02/29/20 07:35 Testing Laboratory Results 02/29/20 06:58 02/29/20 06:58 PT 11.9 Seconds (9.0-12.0) 02/28/20 16:05 INR 1.1 (0.9-1.1) 02/28/20 16:05 APTT 28.9 Seconds (21.0-31.0) 02/28/20 16:05 Electrocardiogram Date: 02/28/20 Findings: + SB @ (55) Sinus bradycardia Otherwise normal ECG When compared with ECG of 31-MAR-2020 06:32, Aberrant conduction is no longer Present Other Testing Chest X-Ray Date: 08/29/19 Findings: + NAD and + cardiomegaly (mild) Echocardiogram Date: 08/29/19 EF: 65-70 LV Function: normal RWMA: + none Other Findings: + atrial enlargement (BL) and + LVH (Moderate) Valvular Disease: + no significant valvular disease 4.1cm thoracic aneurysm
[2020-02-29] MEDS ORDERED: LIDOCAINE HCL 2% 2 ML VIAL/AMP(20MG/ML) INFIL ONE (11:54)
[2020-02-29] MEDS ORDERED: ePHEDrine sulfate 50 MG/ML SYR ONE (11:54)
[2020-02-29] MEDS ORDERED: PHENYLEPHRINE 100MCG/ML 5ML SYR ONE (11:54)
[2020-02-29] MEDS ORDERED: PROPOFOL IV EMULSION 10 MG/ML 20 ML VIAL IV ONE (11:54)
[2020-02-29] MEDS ORDERED: SUCCINYLCHOLINE CHLORIDE 20 MG/ML 10 ML VIAL ONE (11:55)
[2020-02-29] MEDS ORDERED: INDOMETHACIN 50 MG SUPP PR ONE ×2 (12:14→12:20)
--- NOTE | 2020-02-29 14:20 | Post Operative Brief Note ---
Immediate Post Op Note v1 Date of Surgery February 29, 2020 Pre & Post Diagnosis Operation Date: 02/29/20 07:00 Pre-Op Diagnosis: Elevated Liver Enzymes, Choledocholithiasis Post-Op Diagnosis: Elevated Liver Enzymes, Choledocholithiasis I identified the patient and participated in the time-out.: Yes Procedure Operation Date: 02/29/20 07:00 Actual Procedures p Endoscopic Retrograde Cholangiopancreatogram(Not Applicable) - Pardeep Lazo Surgeon Pardeep Lazo Quality Assurance Consultant none Estimated Blood Loss 5 Findings Consistent with Post-Op Diagnosis
--- NOTE | 2020-02-29 14:20 | GI REPORT ---
Patient Name: Alison Xiong Procedure Date: 02/29/2020 12:33 PM Date of : 1935 Admit Type: Inpatient Age: 85 Gender: Female Attending MD: Pardeep Lazo DO Procedure: ERCP Providers: Pardeep Lazo DO Referring MD: Bhumika Lazo, Carlitos Blackburn Md, YOHANA HIGHTOWER Indications: Abdominal pain of suspected biliary origin, Abnormal MRCP, Elevated liver enzymes Medicines: General Anesthesia Complications: No immediate complications. Estimated blood loss: Minimal. Estimated Blood Loss: Estimated blood loss was minimal. Procedure: Pre-Anesthesia Assessment: - Prior to the procedure, a History and Physical was performed, and patient medications, allergies and sensitivities were reviewed. The patient's tolerance of previous anesthesia was reviewed. - The risks and benefits of the procedure and the sedation options and risks were discussed with the patient. All questions were answered and informed consent was obtained. - Patient identification and proposed procedure were verified prior to the procedure by the physician, the nurse and the netbackup admin. The procedure was verified in the procedure room. - Pre-procedure physical examination revealed no contraindications to sedation. - ASA Grade Assessment: III - A patient with severe systemic disease. - After reviewing the risks and benefits, the patient was deemed in satisfactory condition to undergo the procedure. - The anesthesia plan was to use general anesthesia. - Immediately prior to administration of medications, the patient was re-assessed for adequacy to receive sedatives. - The heart rate, respiratory rate, oxygen saturations, blood pressure, adequacy of pulmonary ventilation, and response to care were monitored throughout the procedure. - The physical status of the patient was re-assessed after the procedure. After obtaining informed consent, the scope was passed under direct vision. Throughout the procedure, the patient's blood pressure, pulse, and oxygen saturations were monitored continuously. The SCOPE was introduced through the mouth, and advanced to the duodenum and used to inject contrast into the bile duct. The patient tolerated the procedure well. The ERCP was technically difficult and complex due to challenging cannulation because of intradiverticular papilla. Successful completion of the procedure was aided by performing the maneuvers documented (below) in this report. Findings: A plaster mixer film of the abdomen was obtained. Surgical clips, consistent with a previous cholecystectomy, were seen in the area of the right upper quadrant of the abdomen. The esophagus was successfully intubated under direct vision without detailed examination of the pharynx, larynx, and associated structures, and upper GI tract. The upper GI tract was grossly normal. The major papilla was located entirely within a diverticulum and difficult to identify. The major papilla was congested. To aid in cannulation of the of the papilla, one hemostatic clip was successfully placed (MR conditional) to partially bring it out of the diverticulu.. The bile duct was deeply cannulated with the short-nosed traction sphincterotome and guidewire, several combinations were used (Omin with a 0.35 acrobat wire and Rx39 with a 0.025 in (angled and straight) Acrobat). Contrast was injected. I personally interpreted the bile duct images. Contrast extended to the hepatic ducts. The middle third of the main bile duct contained filling defect(s) thought to be a stone. The biliary orifice was stenotic. This appeared benign. A 3 mm biliary sphincterotomy was made with a monofilament Dreamtome sphincterotome using ERBE electrocautery. Moderate bleeding from the sphincterotomy stopped within 5 minutes )treated with epinephrine injection). To discover objects, the biliary tree was swept with an 8.5 mm balloon starting at the bifurcation. One stone was removed. No stones remained. Area was successfully injected with 2 mL of a 1:10,000 solution of epinephrine (Crammer catheter) through the ERCP scope for hemostasis of bleeding caused by the procedure. One 7 Fr by 4 cm biliary stent with a full external pigtail and a full internal pigtail was placed 4 cm into the common bile duct. Bile flowed through the stent. The stent was in good position. The endoscope was withdrawn from the patient. Indomethacin 100 mg was given via suppository to decrease the risk of post-ERCP pancreatitis (PEP). Impression: - The major papilla was located entirely within a diverticulum. - Biliary papillary stenosis, benign. - Choledocholithiasis was found. Complete removal was accomplished by biliary sphincterotomy and balloon extraction. - Due ot mild post-spinterotomy bleeding, one biliary stent was placed into the common bile duct in addition to injection of sphincterotomy site with 2 ml epinephrine. - Indomethacin given to decrease risk of post-ERCP pancreatitis. Recommendation: - Avoid aspirin and nonsteroidal anti-inflammatory medicines for 1 week. - May restart Eliquis in 1 week - Clear liquid diet today. - Repeat ERCP in 6 weeks to remove stent. Pradeep Lazo D.O. Pardeep Lazo, 02/29/2020 2:19:37 PM This report has been signed electronically. Note Initiated On: 02/29/2020 12:33 PM Number of Addenda: 0 I attest to the content of the Intraoperative Record and orders documented therein, exceptions below {[id number]}
--- NOTE | 2020-02-29 14:22 | Communication Note ---
Date of Service: February 29, 2020 The patient underwent urgent ERCP today for suspected choledocholithiasis. The procedure was somewhat difficult given her large periampullary diverticulum. We were able to remove a stone from the common bile duct. Due to a small amount of bleeding we decided to place a prophylactic biliary stent. Recommendations Liquid diet today Continue IV hydration overnight Avoid use of NSAIDs for 1 week Hold Eliquis for 1 week Repeat ERCP in 6 weeks for stent removal
--- NOTE | 2020-02-29 14:24 | Fluoroscopy Report ---
[place] ERCP biliary ductal CLINICAL HISTORY: R/O OBSTRUCTION OF DUCTS COMPARISON STUDY: Right upper quadrant ultrasound January 25, 2020. MRCP February 28, 2020. FLUOROSCOPY TIME: 3 minutes and 5 seconds. FLUOROSCOPIC IMAGES: 7 FINDINGS: Fluoroscopy was provided during ERCP. These images demonstrate cannulation of the common bi le duct with placement of a biliary stent. Endoscopic and cholecystectomy clips are incidentally note d. IMPRESSION: Fluoroscopy provided during ERCP with biliary stent placement. ACT 112: Negative or not required by law. Electronically signed by: Jaden Orozco M.D. 02/29/2020 2:22 PM
[2020-02-29] MEDS ORDERED: GLUCAGON FOR INJ 1 MG VIAL ONE (14:32)
[2020-02-29] MEDS ORDERED: HYDROmorphone INJ 0.5 MG/0.5 ML SYR ONE (14:43)
[2020-02-29] MEDS ORDERED: HYDROmorphone INJ 1 MG/ML SYRINGE ONE (14:46)
[2020-02-29] MEDS: HYDROmorphone INJ 1 MG/ML SYRINGE IV PRN ×2 (15:23→15:29)
--- NOTE | 2020-02-29 15:34 | Electrocardiogram Report ---
Test Reason : Blood Pressure : / mmHG Vent. Rate : 055 BPM Atrial Rate : 055 BPM P-R Int : 180 ms QRS Dur : 092 ms QT Int : 456 ms P-R-T Axes : 062 -07 061 degrees QTc Int : 436 ms Sinus bradycardia Otherwise normal ECG When compared with ECG of 05-FEB-2020 06:32, Aberrant conduction is no longer Present Confirmed by Seven Lama ([id number]) on 02/29/2020 3:34:01 PM Referred By: Bhumika Lazo Confirmed By:Samm Lama
--- NOTE | 2020-02-29 15:37 | Anesthesiology Progress Note ---
Date of Service February 29, 2020 Anesthesia Post Procedure Vital Signs Vital Signs: Temp Pulse Pulse Pulse Resp BP BP 02/29/20 15:15 53 L 14 185/90 H 02/29/20 15:05 50 L 12 182/87 H 02/29/20 14:55 52 L 12 187/87 H 02/29/20 14:45 56 L 14 192/100 H 02/29/20 14:35 64 16 188/86 H 02/29/20 14:27 36.6 C 62 14 167/101 H 02/29/20 12:14 36.7 C 62 18 173/119 H 02/29/20 12:06 37.0 C 48 L 18 166/85 H 02/29/20 11:02 66 02/29/20 07:35 36.7 C 80 20 168/82 H 02/29/20 04:12 36.6 C 66 18 158/89 H 02/29/20 01:00 51 L 02/28/20 23:53 35.7 C L 62 21 185/61 H 02/28/20 15:46 36.7 C 62 54 L 16 175/80 H Pulse Ox 02/29/20 15:15 96 02/29/20 15:05 96 02/29/20 14:55 97 02/29/20 14:45 97 02/29/20 14:35 97 02/29/20 14:27 94 02/29/20 12:14 96 02/29/20 12:06 97 02/29/20 11:02 02/29/20 07:35 96 02/29/20 04:12 95 02/29/20 01:00 02/28/20 23:53 97 02/28/20 15:46 94 Pain Intensity Right Abdomen: Pain Intensity: 7 Medial Abdomen: Pain Intensity: 8 Transfer of Care Handoff Completed per policy Notes Mental Status: alert / awake / arousable and participated in evaluation Patient Amnestic to Procedure: Yes Nausea / Vomiting: adequately controlled Pain: adequately controlled Airway Patency, RR, SpO2: stable & adequate BP & HR: stable & adequate Hydration State: stable & adequate Anesthetic Complications: no major complications apparent and Pt Satisfied with anesthetic care
[2020-02-29] MEDS ORDERED: ONDANSETRON INJ 2 MG/ML 2 ML VIAL ONE (15:38)
[2020-02-29] MEDS ORDERED: HydrALAZINE 10 MG TAB PO PRN (17:01)
--- NOTE | 2020-02-29 17:10 | Communication Note ---
Date of Service: February 29, 2020 I saw and evaluated the patient this afternoon. She notes having some nausea but denies abdominal pain presently. Recomendations Zofran 4 mg prn continue IV hydration, LR at 125 ml/hour hold non-steroidals / Eliquis for 1 week
[2020-02-29] MEDS: LACTATED RINGER'S 1,000 ML IV SCH (17:53)
[2020-02-29] MEDS ORDERED: MoRPHine SULFATE 4 MG/ML 1 ML CARP\\VIAL IV STA (20:57)
[2020-02-29] MEDS: GABAPENTIN 100 MG CAP PO SCH (21:11)
[2020-02-29] MEDS: TERAZOSIN HCL 1 MG CAP PO SCH (21:11)
[2020-02-29] MEDS ORDERED: IOVERSOL 100ml IV PRN (21:21)
--- NOTE | 2020-02-29 22:03 | CT Scan Report ---
ABDOMEN AND PELVIS CT WITH IV CONTRAST CT DOSE: 250.94 mGy.cm HISTORY: Generalized abdominal pain. TECHNIQUE: Multiaxial CT images of the abdomen and pelvis were performed following the use of intrave nous contrast. A dose lowering technique was utilized adhering to the principles of ALARA. COMPARISON STUDY: MRCP 02/28/2020. Abdomen and pelvis CT 03/01/2019. FINDINGS: A few bibasilar linear densities consistent with subsegmental atelectasis. No pneumoperiton eum. No pneumatosis. No suspicious lytic are blastic osseous lesions. No hepatic masses. The main por jacqueline vein is patent. The adrenal glands are unremarkable. There is an indeterminate 9 mm hypodense les ion within the spleen. There is also punctate calcified granuloma within the spleen. No hydronephrosi s. Bilateral renal cysts are again noted. No retroperitoneal lymphadenopathy. Normal caliber abdomina l aorta. Prior cholecystectomy. Small amount of pneumobilia is present. Minimal inflammatory change a t the gallbladder fossa is likely due to the recent postoperative change. No fluid collections identi fied. There is a common bile duct stent which appears in good position. The distal portion of the sean nt is looped within the 3 cm duodenal diverticulum. There are 2 surgical clips within the duodenal di verticulum and third portion of the duodenum. The pancreas enhances normally. No peripancreatic infla mmatory change to suggest acute appendicitis. Normal bladder. Mild pelvic floor collapse. The uterus and ovaries are within normal limits. No pelvic free fluid. Colonic diverticulosis. No evidence for d iverticulitis. No bowel wall thickening or obstruction. Normal appendix. IMPRESSION: 1. Status post recent cholecystectomy. 2. A common bile duct stent appears to be in good position. Pneumobilia is present. 3. No bowel wall thickening or obstruction. 4. Colonic diverticulosis. 5. Normal appendix. ACT 112: Negative or not required by law. Electronically signed by: Steve Jim M.D. 02/29/2020 10:02 PM
[2020-02-29] MEDS ORDERED: AMLODIPINE BESYLATE 5 MG TAB PO ONE (22:46)
--- NOTE | 2020-02-29 22:47 | Communication Note ---
Date of Service: February 29, 2020 Overnight developments : 02/28, 9 PM - patient complaining of right-sided abdominal pain worse than at time of admission as per RN. Incomplete relief with 1 dose of Morphine as per RN. No fever/nausea/vomiting. SBP 150-190s the last 24h CT abdomen pelvis: 1. Status post recent cholecystectomy. 2. A common bile duct stent appears to be in good position. Pneumobilia is present. 3. No bowel wall thickening or obstruction. 4. Colonic diverticulosis. 5. Normal appendix. Lipase 682 03/01,1230AM-sustained bradycardic episode 30 to 50s while patient sleeping. No abdominal pain as per RN. AP Pancreatitis hx ERCP HTN urgency 2 to above Asymptomatic bradycardia hx PAF Increase IVF to 200 cc/h Add Amlodipine to regimen Decrease home beta-jolene dose from 25 mg BID to 12.5 mg BID for now Will relay to AM provider.
[2020-02-29 23:01] LABS: Albumin Level 3.3 gm/dl (3.4-5.0); Calcium 8.7 mg/dl (8.5-10.1); Creatinine Clr Calc Pharmacy 48.6 ml/min; Est GFR (African American) 94.5; Est GFR (Non-African American) 81.5; Potassium 3.7 mmol/L (3.5-5.1)
[2020-02-29 23:04] LABS: Albumin Globulin Ratio 0.9 (0.9-2); Bilirubin,Total 1.2 mg/dl (0.2-1); Globulin 3.8 gm/dl (2.5-4.0); Total Protein 7.1 gm/dl (6.4-8.2)
[2020-02-29] MEDS ORDERED: Nursing to Pharmacy Communication ONE (23:40)
[2020-03-01] MEDS ORDERED: ATROPINE SULFATE 0.1 MG/ML 5ML SYR IV PRN (00:35)
[2020-03-01] MEDS ORDERED: POTASSIUM CHLORIDE 20 MEQ TABCR PO STA (00:35)
[2020-03-01 00:55] LABS: Magnesium 2.2 mg/dl (1.8-2.4)
[2020-03-01 01:12] LABS: Thyroid Stimulating Hormone 1.85 uIu/ml (0.300-4.500)
[2020-03-01] MEDS: ACETAMINOPHEN 325 MG TAB PO PRN ×3 (01:24→20:38)
[2020-03-01] MEDS: LACTATED RINGER'S 1,000 ML IV SCH ×4 (02:27→18:21)
[2020-03-01] MEDS: SUMAtriptan succinate 100 MG TAB PO PRN ×2 (04:12→13:13)
[2020-03-01 06:35] LABS: Hematocrit (blood only) 38.9 % (37-47); Hemoglobin 12.8 g/dL (12.0-16.0); Mean Corpuscular Hemoglobin 30.1 pg (25-34); Mean Corpuscular Hgb Conc 32.9 g/dL (32-36); Mean Corpuscular Volume 91.5 fL (80-100); Mean Platelet Volume 10.2 fL (7.4-10.4); Platelet Count 192 K/uL (130-400); RDW Coefficient of Variation 13.7 % (11.5-14.5); RDW Standard Deviation 45.6 fL (36.4-46.3); Red Blood Count 4.25 M/uL (4.2-5.4)
[2020-03-01 07:03] LABS: BUN Creatinine Ratio 20.1 (10-20); Calcium 8.6 mg/dl (8.5-10.1); Creatinine Clr Calc Pharmacy 61.3 ml/min; Est GFR (African American) 98.7; Est GFR (Non-African American) 85.1; Potassium 3.9 mmol/L (3.5-5.1)
[2020-03-01 07:06] LABS: Albumin Globulin Ratio 0.8 (0.9-2); Globulin 3.8 gm/dl (2.5-4.0); Total Protein 6.8 gm/dl (6.4-8.2)
[2020-03-01] MEDS: PANTOprazole 40 MG TAB PO SCH (07:37)
[2020-03-01] MEDS: METOPROLOL TARTRATE 25 MG TAB PO SCH ×2 (07:37→20:39)
[2020-03-01] MEDS: MoRPHine SULFATE 2 MG/ML CARP IV PRN ×3 (07:47→18:21)
[2020-03-01] MEDS ORDERED: AMLODIPINE BESYLATE 5 MG TAB PO SCH ×2 (09:00→21:00)
--- NOTE | 2020-03-01 12:29 | Gastroenterology Progress Note ---
Date of Service March 01, 2020 Assessment & Plan (1) Choledocholithiasis: s/p ERCP with stone removal and stent placement 02/28. Recs: pain control prn advance diet as tolerated continue IV hydration, LR at 125 ml/hour hold non-steroidals / Eliquis for 1 week will need repeat ERCP in 6 weeks for stent removal rest as per primary team Admission and Anticipated Discharge Date Admission Date: February 28, 2020 Subjective underwent ERCP with stone removal and stent placement yesterday for choledocholithiasis. Noted to have periampullary diverticulum as well. Today she notes moderate-severe RUQ abdominal pains, denies n/v, she is tolerating a clear liquid diet. afebrile Review of Systems Constitutional: no fever and no chills Respiratory: no cough, no dyspnea and no dyspnea on exertion Cardiovascular: no chest pain and no dyspnea Gastrointestinal: as per Subjective / HPI Psychiatric: no depression and no anxiety Physical Exam Constitutional: WD/WN, vitals as above Respiratory: normal respiratory effort, lungs clear to auscultation Cardiovascular: RRR, no murmur, no edema Gastrointestinal (Abdomen): Percussion/Palpation: + abdomen tender (RUQ moderate) and abdomen soft Musculoskeletal: no lower extremity edema Psychiatric: A+Ox3, euthymic affect Results & Data Results & Data ([facility]) Vital Signs (Past 12 Hours) Vital Signs Temp Pulse Pulse Pulse Resp BP Pulse Ox 03/01/20 11:25 58 L 168/78 H 03/01/20 11:18 37.2 C 58 L 20 172/75 H 93 03/01/20 07:30 53 L 03/01/20 07:27 36.6 C 57 L 18 166/60 H 93 03/01/20 04:15 37.1 C 58 L 16 138/71 92 PG Care Time/CCT Total # of Minutes Spent Total Time Spent with Patient: Total time spent is greater than 50% in coordination of care (as documented) at patient's floor/unit and/or counseling patient: Coding Level of Care Code 95171 Subseq Hosp Care Lvl 3 Diagnoses Choledocholithiasis K80.50
--- NOTE | 2020-03-01 12:49 | Electrocardiogram Report ---
Test Reason : Blood Pressure : / mmHG Vent. Rate : 055 BPM Atrial Rate : 055 BPM P-R Int : 180 ms QRS Dur : 090 ms QT Int : 500 ms P-R-T Axes : 032 -06 057 degrees QTc Int : 478 ms Sinus bradycardia with Premature atrial complexes Otherwise normal ECG When compared with ECG of 28-FEB-2020 15:14, Premature atrial complexes are now Present Confirmed by Tuan Bee ([id number]) on 03/01/2020 12:49:23 PM Referred By: Bhumika Lazo Confirmed By:Tuan Bee
--- NOTE | 2020-03-01 13:20 | Hospitalist Progress Note ---
Date of Service March 01, 2020 Assessment & Plan (1) RUQ abdominal pain: (2) Elevated LFTs: Patient is an 85-year-old female with H/O Paroxysmal atrial fibrillation on Eliquis, HTN, dyslipidemia, borderline tachy michael syndrome, migraine, GERD, prediabetes, enlarged thoracic aorta presents with RUQ pain and elevated LFTs. Choledocholithiasis Peripapillary diverticulum Postcholecystectomy syndrome H/O cholecystectomy on 02/02/[address] Lazo for acute cholecystitis --MRCP:Postoperative changes of interval cholecystectomy. There is no intrahepatic or extrahepatic biliary ductal dilation however there is an apparent filling defect within the mid common bile duct adjacent to a small to moderate air-filled duodenal diverticulum which likely accounts for the signal abnormality. Choledocholithiasis considered less likely however is also a differential consideration. Correlation with LFTs recommended. --ERCP: The major papilla was located entirely within a diverticulum. Biliary papillary stenosis, benign. Choledocholithiasis was found. Complete removal was accomplished by biliary sphincterotomy and balloon extraction. Due to mild post sphincterotomy bleeding, one biliary stent was placed into the common bile duct in addition to injection of sphincterotomy site with 2 mL epinephrine. Indomethacin given to decrease risk for post ERCP pancreatitis. --Appreciate GI input --Clear liquid diet, advance as tolerated --Continue IV fluids, pain control --Monitor LFTs --Avoid aspirin, NSAIDs, Eliquis for 1 week --Needs repeat ERCP in 6 weeks for stent removal (3) Paroxysmal atrial fibrillation: Rate controlled Continue metoprolol Hold Eliquis for 1 week as per GI (4) Hypertension: BP elevated likely due to pain Continue Terazosin Continue Metoprolol with holding parameters Added amlodipine PO Hydralazine PRN Bradycardia Metoprolol dose decreased to 12.5mg BID (5) Hyperlipidemia: Continue to hold statin (6) Migraine headache: Continue gabapentin Continue sumatriptan PRN (7) GERD (gastroesophageal reflux disease): Continue Protonix DVT Px: SCDs for now Resume Eliquis as able Code Status Full Code Admission and Anticipated Discharge Date Admission Date: February 28, 2020 Subjective Patient is seen and examined at bedside States having significant abdominal pain overnight Tolerated clear liquid diet Denies any nausea, vomiting, chest pain, SOB, dizziness BP elevated Review of Systems Review of Systems: All systems reviewed & are unremarkable except as noted in HPI & below Physical Exam Physical Exam: Physical Exam: Vitals signs as noted above General Appearance:Moderately built and nourished, no apparent distress Head: normocephalic, Atraumatic Eyes: normal inspection, EOMI Neck: supple, Trachea midline Respiratory/Chest: Normal breath sounds, CTA Cardiovascular: Irregularly irregular, No murmur Abdomen/GI:Soft, Epigastric, RUQ tender, no guarding or rigidity, bowel sounds present Extremities/Musculoskelatal:normal inspection, no edema Neurologic/Psych:AAOX3, grossly no focal neurological deficits Skin: normal color, warm Results & Data Results & Data ([facility]) Vital Signs (Past 12 Hours) Vital Signs Temp Pulse Pulse Pulse Resp BP Pulse Ox 03/01/20 11:25 58 L 168/78 H 03/01/20 11:18 37.2 C 58 L 20 172/75 H 93 03/01/20 07:30 53 L 03/01/20 07:27 36.6 C 57 L 18 166/60 H 93 03/01/20 04:15 37.1 C 58 L 16 138/71 92 Laboratory Results Short CBC 03/01/20 Range/Units 05:59 WBC 7.80 (4.8-10.8) K/uL Hgb 12.8 (12.0-16.0) g/dL Hct 38.9 (37-47) % Plt Count 192 (130-400) K/uL BMP 02/29/20 03/01/20 22:31 05:59 Sodium 136 137 Potassium 3.7 3.9 Chloride 104 106 Carbon Dioxide 27 24 BUN 11 12 Creatinine 0.65 0.57 L Glucose 86 90 Calcium 8.7 8.6 Liver Function 02/29/20 03/01/20 Range/Units 22:31 05:59 Total Bilirubin 1.2 H 1.0 (0.2-1) mg/dl AST 64 H 58 H (15-37) U/L ALT 98 H 89 H (12-78) U/L Alkaline Phosphatase 470 H 423 H (45-117) U/L Albumin 3.3 L 3.0 L (3.4-5.0) gm/dl (1) Hypertension Hypertension type: essential hypertension Qualified Code(s): I10 - Essential (primary) hypertension (2) Migraine headache Intractability: not intractable Migraine type: without aura Status migrainosus presence: without status migrainosus Qualified Code(s): G43.009 - Migraine without aura, not intractable, without status migrainosus
[2020-03-01] MEDS ORDERED: AMLODIPINE BESYLATE 5 MG TAB PO ONE (20:03)
[2020-03-01] MEDS: GABAPENTIN 100 MG CAP PO SCH (20:40)
[2020-03-01] MEDS: TERAZOSIN HCL 1 MG CAP PO SCH (20:40)
[2020-03-02] MEDS: MoRPHine SULFATE 2 MG/ML CARP IV PRN ×5 (00:27→21:26)
[2020-03-02] MEDS: LACTATED RINGER'S 1,000 ML IV SCH ×3 (00:27→18:50)
[2020-03-02] MEDS: ONDANSETRON INJ 2 MG/ML 2 ML VIAL IV PRN ×2 (02:58→14:03)
[2020-03-02 06:39] LABS: Hematocrit (blood only) 40.7 % (37-47); Hemoglobin 13.3 g/dL (12.0-16.0); Mean Corpuscular Hgb Conc 32.7 g/dL (32-36); Mean Corpuscular Volume 91.7 fL (80-100); Mean Platelet Volume 9.9 fL (7.4-10.4); Platelet Count 200 K/uL (130-400); RDW Coefficient of Variation 13.4 % (11.5-14.5); RDW Standard Deviation 44.9 fL (36.4-46.3); Red Blood Count 4.44 M/uL (4.2-5.4); White Blood Count 7.02 K/uL (4.8-10.8)
[2020-03-02 07:08] LABS: BUN Creatinine Ratio 11.9 (10-20); Calcium 8.7 mg/dl (8.5-10.1); Creatinine Clr Calc Pharmacy 52.7 ml/min; Est GFR (Non-African American) 83.7; Potassium 3.8 mmol/L (3.5-5.1)
[2020-03-02 07:11] LABS: Albumin Globulin Ratio 0.7 (0.9-2); Bilirubin,Total 1.1 mg/dl (0.2-1); Globulin 4.3 gm/dl (2.5-4.0); Total Protein 7.3 gm/dl (6.4-8.2)
[2020-03-02] MEDS: PROMETHAZINE HCL 12.5 MG in SODIUM CHLORIDE 0.9% 50 ML IV PRN ×2 (08:20→15:48)
[2020-03-02] MEDS: METOPROLOL TARTRATE 25 MG TAB PO SCH ×2 (08:53→21:25)
[2020-03-02] MEDS: PANTOprazole 40 MG TAB PO SCH (08:54)
[2020-03-02] MEDS: AMLODIPINE BESYLATE 5 MG TAB PO SCH (08:54)
--- NOTE | 2020-03-02 12:52 | Hospitalist Progress Note ---
Date of Service March 02, 2020 Assessment & Plan (1) RUQ abdominal pain: (2) Elevated LFTs: Patient is an 85-year-old female with H/O Paroxysmal atrial fibrillation on Eliquis, HTN, dyslipidemia, borderline tachy michael syndrome, migraine, GERD, prediabetes, enlarged thoracic aorta presents with RUQ pain and elevated LFTs. Choledocholithiasis Peripapillary diverticulum Postcholecystectomy syndrome H/O cholecystectomy on 02/02/[address] Lazo for acute cholecystitis --MRCP:Postoperative changes of interval cholecystectomy. There is no intrahepatic or extrahepatic biliary ductal dilation however there is an apparent filling defect within the mid common bile duct adjacent to a small to moderate air-filled duodenal diverticulum which likely accounts for the signal abnormality. Choledocholithiasis considered less likely however is also a differential consideration. Correlation with LFTs recommended. --ERCP: The major papilla was located entirely within a diverticulum. Biliary papillary stenosis, benign. Choledocholithiasis was found. Complete removal was accomplished by biliary sphincterotomy and balloon extraction. Due to mild post sphincterotomy bleeding, one biliary stent was placed into the common bile duct in addition to injection of sphincterotomy site with 2 mL epinephrine. Indomethacin given to decrease risk for post ERCP pancreatitis. --Appreciate GI input --Full liquid diet, advance as tolerated --Decrease IV fluids --Continue pain control --Monitor LFTs --Avoid aspirin, NSAIDs, Eliquis for 1 week --Needs repeat ERCP in 6 weeks for stent removal --GI following (3) Paroxysmal atrial fibrillation: Rate controlled Continue metoprolol Hold Eliquis for 1 week as per GI (4) Hypertension: BP elevated likely due to pain Continue Terazosin Continue Metoprolol with holding parameters Continue amlodipine 5mg daily PO Hydralazine PRN Bradycardia Metoprolol dose decreased to 12.5mg BID (5) Hyperlipidemia: Continue to hold statin (6) Migraine headache: Continue gabapentin Continue sumatriptan PRN (7) GERD (gastroesophageal reflux disease): Continue Protonix DVT Px: On Eliquis Code Status Full Code Disposition PT/OT prior to discharge Admission and Anticipated Discharge Date Admission Date: February 28, 2020 Subjective Patient is seen and examined at bedside Complains of RUQ abd pain Also states having nausea but no vomiting No new complaints Denies any chest pain, SOB, dizziness Plan to advance diet as tolerated Review of Systems Review of Systems: All systems reviewed & are unremarkable except as noted in HPI & below Physical Exam Physical Exam: Physical Exam: Vitals signs as noted above General Appearance:Moderately built and nourished, no apparent distress Head: normocephalic, Atraumatic Eyes: normal inspection, EOMI Neck: supple, Trachea midline Respiratory/Chest: Normal breath sounds, CTA Cardiovascular: Irregularly irregular, No murmur Abdomen/GI:Soft, RUQ tender, no guarding or rigidity, bowel sounds present Extremities/Musculoskelatal:normal inspection, no edema Neurologic/Psych:AAOX3, grossly no focal neurological deficits Skin: normal color, warm Results & Data Results & Data ([facility]) Vital Signs (Past 12 Hours) Vital Signs Temp Pulse Pulse Pulse Resp BP BP 03/02/20 11:24 36.7 C 60 18 161/77 H 03/02/20 08:00 57 L 58 L 03/02/20 07:36 36.5 C 61 18 166/74 H 03/02/20 03:33 36.9 C 60 17 164/76 H 03/02/20 00:53 62 Pulse Ox 03/02/20 11:24 94 03/02/20 08:00 03/02/20 07:36 96 03/02/20 03:33 92 03/02/20 00:53 Laboratory Results Short CBC 03/02/20 Range/Units 06:22 WBC 7.02 (4.8-10.8) K/uL Hgb 13.3 (12.0-16.0) g/dL Hct 40.7 (37-47) % Plt Count 200 (130-400) K/uL BMP 03/02/20 06:22 Sodium 135 L Potassium 3.8 Chloride 101 Carbon Dioxide 27 BUN 7 D Creatinine 0.60 Glucose 106 H Calcium 8.7 Liver Function 03/02/20 Range/Units 06:22 Total Bilirubin 1.1 H (0.2-1) mg/dl AST 46 H (15-37) U/L ALT 75 (12-78) U/L Alkaline Phosphatase 420 H (45-117) U/L Albumin 3.0 L (3.4-5.0) gm/dl (1) Hypertension Hypertension type: essential hypertension Qualified Code(s): I10 - Essential (primary) hypertension (2) Migraine headache Intractability: not intractable Migraine type: without aura Status migrainosus presence: without status migrainosus Qualified Code(s): G43.009 - Migraine without aura, not intractable, without status migrainosus
[2020-03-02] MEDS: SUMAtriptan succinate 100 MG TAB PO PRN ×2 (14:00→14:30)
[2020-03-02] MEDS: APIXABAN 2.5 MG TAB PO SCH ×2 (14:00→15:25)
[2020-03-02] MEDS: ACETAMINOPHEN 325 MG TAB PO PRN (18:49)
[2020-03-02] MEDS: TERAZOSIN HCL 1 MG CAP PO SCH (21:24)
[2020-03-02] MEDS: GABAPENTIN 100 MG CAP PO SCH (21:25)
[2020-03-02] MEDS ORDERED: Nursing to Pharmacy Communication ONE (22:14)
[2020-03-03] MEDS: MoRPHine SULFATE 2 MG/ML CARP IV PRN (01:21)
[2020-03-03] MEDS: SUMAtriptan succinate 100 MG TAB PO PRN (06:38)
[2020-03-03 08:07] LABS: BUN Creatinine Ratio 18.3 (10-20); Creatinine Clr Calc Pharmacy 51.8 ml/min; Est GFR (African American) 96.5; Est GFR (Non-African American) 83.2; Potassium 3.6 mmol/L (3.5-5.1)
[2020-03-03] MEDS: LACTATED RINGER'S 1,000 ML IV SCH (08:08)
[2020-03-03 08:09] LABS: Albumin Globulin Ratio 0.8 (0.9-2)
[2020-03-03] MEDS: PANTOprazole 40 MG TAB PO SCH (08:13)
[2020-03-03] MEDS: METOPROLOL TARTRATE 25 MG TAB PO SCH ×2 (08:14→20:37)
[2020-03-03] MEDS: AMLODIPINE BESYLATE 5 MG TAB PO SCH (08:14)
--- NOTE | 2020-03-03 14:52 | Hospitalist Progress Note ---
Date of Service March 03, 2020 Assessment & Plan (1) RUQ abdominal pain: (2) Elevated LFTs: Patient is an 85-year-old female with H/O Paroxysmal atrial fibrillation on Eliquis, HTN, dyslipidemia, borderline tachy michael syndrome, migraine, GERD, prediabetes, enlarged thoracic aorta presents with RUQ pain and elevated LFTs. Choledocholithiasis Periampullary diverticulum Postcholecystectomy syndrome H/O cholecystectomy on 02/02/[address] Lazo for acute cholecystitis --MRCP:Postoperative changes of interval cholecystectomy. There is no intrahepatic or extrahepatic biliary ductal dilation however there is an apparent filling defect within the mid common bile duct adjacent to a small to moderate air-filled duodenal diverticulum which likely accounts for the signal abnormality. Choledocholithiasis considered less likely however is also a differential consideration. Correlation with LFTs recommended. --ERCP: The major papilla was located entirely within a diverticulum. Biliary papillary stenosis, benign. Choledocholithiasis was found. Complete removal was accomplished by biliary sphincterotomy and balloon extraction. Due to mild post sphincterotomy bleeding, one biliary stent was placed into the common bile duct in addition to injection of sphincterotomy site with 2 mL epinephrine. Indomethacin given to decrease risk for post ERCP pancreatitis. --Appreciate GI input --Advance to low fiber diet today --Received IV fluids --Pain is controlled --LFTs trended down --Avoid aspirin, NSAIDs, Eliquis for 1 week --Needs repeat ERCP in 6 weeks for stent removal (3) Paroxysmal atrial fibrillation: Rate controlled Continue metoprolol with holding paramaters Hold Eliquis for 1 week as per GI (4) Hypertension: BP elevated likely due to pain Continue Terazosin Continue Metoprolol with holding parameters Continue amlodipine 5mg daily PO Hydralazine PRN Bradycardia Metoprolol dose decreased to 12.5mg BID (5) Hyperlipidemia: Resume statin as able (6) Migraine headache: Continue gabapentin Continue sumatriptan PRN (7) GERD (gastroesophageal reflux disease): Continue Protonix DVT Px: Eliquis on hold Code Status Full Code Disposition Expect to discharge home when medically stable Admission and Anticipated Discharge Date Admission Date: February 28, 2020 Subjective Patient is seen and examined at bedside Abd pain much improved Denies any chest pain, SOB, dizziness, nausea, vomiting Tolerating diet Review of Systems Review of Systems: All systems reviewed & are unremarkable except as noted in HPI & below Physical Exam Physical Exam: Physical Exam: Vitals signs as noted above General Appearance:Moderately built and nourished, no apparent distress Head: normocephalic, Atraumatic Eyes: normal inspection, EOMI Neck: supple, Trachea midline Respiratory/Chest: Normal breath sounds, CTA Cardiovascular: Irregularly irregular, No murmur Abdomen/GI:Soft, RUQ tender, no guarding or rigidity, bowel sounds present Extremities/Musculoskelatal:normal inspection, no edema Neurologic/Psych:AAOX3, grossly no focal neurological deficits Skin: normal color, warm Results & Data Results & Data ([facility]) Vital Signs (Past 12 Hours) Vital Signs Temp Pulse Resp BP Pulse Ox 03/03/20 11:12 36.9 C 58 L 18 128/73 94 03/03/20 08:10 56 L 169/82 H 03/03/20 07:12 37.0 C 58 L 18 166/83 H 94 03/03/20 03:40 36.9 C 60 18 133/75 94 Laboratory Results [facility] 03/03/20 07:03 Sodium 137 Potassium 3.6 Chloride 101 Carbon Dioxide 29 BUN 11 D Creatinine 0.61 Glucose 89 Calcium 9.0 Liver Function 03/03/20 Range/Units 07:03 Total Bilirubin 1.0 (0.2-1) mg/dl AST 41 H (15-37) U/L ALT 63 (12-78) U/L Alkaline Phosphatase 356 H (45-117) U/L Albumin 3.0 L (3.4-5.0) gm/dl (1) Hypertension Hypertension type: essential hypertension Qualified Code(s): I10 - Essential (primary) hypertension (2) Migraine headache Intractability: not intractable Migraine type: without aura Status migrainosus presence: without status migrainosus Qualified Code(s): G43.009 - Migraine without aura, not intractable, without status migrainosus
[2020-03-03] MEDS: ACETAMINOPHEN 325 MG TAB PO PRN (19:10)
[2020-03-03] MEDS: TERAZOSIN HCL 1 MG CAP PO SCH (20:36)
[2020-03-03] MEDS: GABAPENTIN 100 MG CAP PO SCH (20:38)
[2020-03-04] MEDS: ACETAMINOPHEN 325 MG TAB PO PRN (02:05)
[2020-03-04 07:10] LABS: Albumin Level 3.2 gm/dl (3.4-5.0); BUN Creatinine Ratio 18.1 (10-20); Calcium 8.9 mg/dl (8.5-10.1); Creatinine Clr Calc Pharmacy 45.8 ml/min; Est GFR (African American) 92.6; Est GFR (Non-African American) 79.9; Potassium 3.5 mmol/L (3.5-5.1)
[2020-03-04 07:13] LABS: Albumin Globulin Ratio 0.7 (0.9-2); Bilirubin,Total 0.9 mg/dl (0.2-1); Globulin 4.4 gm/dl (2.5-4.0); Total Protein 7.6 gm/dl (6.4-8.2)
[2020-03-04] MEDS: AMLODIPINE BESYLATE 5 MG TAB PO SCH (08:23)
[2020-03-04] MEDS: METOPROLOL TARTRATE 25 MG TAB PO SCH (08:23)
[2020-03-04] MEDS: PANTOprazole 40 MG TAB PO SCH (08:23)
[2020-03-04] MEDS ORDERED: POTASSIUM CHLORIDE 20 MEQ TABCR PO STA (08:59)
[2020-03-04 11:42] VITALS: BP 139/71; PULSE 56; TEMP 98.4; O2SAT 93
--- NOTE | 2020-03-04 11:49 | Hospitalist Progress Note ---
Date of Service March 04, 2020 Assessment & Plan (1) RUQ abdominal pain: (2) Elevated LFTs: Patient is an 85-year-old female with H/O Paroxysmal atrial fibrillation on Eliquis, HTN, dyslipidemia, borderline tachy michael syndrome, migraine, GERD, prediabetes, enlarged thoracic aorta presents with RUQ pain and elevated LFTs. Choledocholithiasis Periampullary diverticulum Postcholecystectomy syndrome H/O cholecystectomy on 02/02/[address] Lazo for acute cholecystitis --MRCP:Postoperative changes of interval cholecystectomy. There is no intrahepatic or extrahepatic biliary ductal dilation however there is an apparent filling defect within the mid common bile duct adjacent to a small to moderate air-filled duodenal diverticulum which likely accounts for the signal abnormality. Choledocholithiasis considered less likely however is also a differential consideration. Correlation with LFTs recommended. --ERCP: The major papilla was located entirely within a diverticulum. Biliary papillary stenosis, benign. Choledocholithiasis was found. Complete removal was accomplished by biliary sphincterotomy and balloon extraction. Due to mild post sphincterotomy bleeding, one biliary stent was placed into the common bile duct in addition to injection of sphincterotomy site with 2 mL epinephrine. Indomethacin given to decrease risk for post ERCP pancreatitis. --Appreciate GI input --Tolerated low fiber diet --Received IV fluids --Pain is well controlled --LFTs trended down --Avoid aspirin, NSAIDs, Eliquis for 1 week --Needs repeat ERCP in 6 weeks for stent removal (3) Paroxysmal atrial fibrillation: Rate controlled Continue metoprolol with holding paramaters Hold Eliquis for 1 week as per GI (4) Hypertension: BP elevated likely due to pain Continue Terazosin Continue Metoprolol--dose decreased to 12.5mg BID Continue amlodipine 5mg daily Bradycardia Metoprolol dose decreased to 12.5mg BID (5) Hyperlipidemia: Continue statin (6) Migraine headache: Continue gabapentin Continue sumatriptan PRN (7) GERD (gastroesophageal reflux disease): Continue Protonix DVT Px: Eliquis on hold Code Status Full Code Disposition Expect to discharge home when medically stable Denies any needs upon discharge Admission and Anticipated Discharge Date Admission Date: February 28, 2020 Subjective Patient is seen and examined at bedside Tolerated low fiber diet Abdominal pain resolved No new complaints Eager to get discharged Continues to refuse rehab placement Also denies any chest pain, SOB, dizziness, nausea, vomiting Review of Systems Review of Systems: All systems reviewed & are unremarkable except as noted in HPI & below Physical Exam Physical Exam: Physical Exam: Vitals signs as noted above General Appearance:Moderately built and nourished, no apparent distress Head: normocephalic, Atraumatic Eyes: normal inspection, EOMI Neck: supple, Trachea midline Respiratory/Chest: Normal breath sounds, CTA Cardiovascular: Irregularly irregular, No murmur Abdomen/GI:Soft, RUQ tender, no guarding or rigidity, bowel sounds present Extremities/Musculoskelatal:normal inspection, no edema Neurologic/Psych:AAOX3, grossly no focal neurological deficits Skin: normal color, warm Results & Data Results & Data ([facility]) Vital Signs (Past 12 Hours) Vital Signs Temp Pulse Resp BP BP Pulse Ox 03/04/20 11:41 36.9 C 56 L 20 139/71 93 03/04/20 07:06 36.8 C 63 18 156/79 H 91 03/04/20 03:37 37.1 C 55 L 16 121/63 95 Laboratory Results [facility] 03/04/20 06:14 Sodium 140 Potassium 3.5 Chloride 106 Carbon Dioxide 29 BUN 12 Creatinine 0.69 Glucose 94 Calcium 8.9 Liver Function 03/04/20 Range/Units 06:14 Total Bilirubin 0.9 (0.2-1) mg/dl AST 32 (15-37) U/L ALT 54 (12-78) U/L Alkaline Phosphatase 340 H (45-117) U/L Albumin 3.2 L (3.4-5.0) gm/dl (1) Hypertension Hypertension type: essential hypertension Qualified Code(s): I10 - Essential (primary) hypertension (2) Migraine headache Intractability: not intractable Migraine type: without aura Status migrainosus presence: without status migrainosus Qualified Code(s): G43.009 - Migraine without aura, not intractable, without status migrainosus
--- NOTE | 2020-03-04 12:00 | Discharge Summary ---
Date of Service March 04, 2020 Admission HPI Per Admitting Provider Pt is 85 y/o F with PMH paroxysmal atrial fibrillation on Eliquis, HTN, dyslipidemia, borderline tachy michael syndrome, migraine, GERD, prediabetes, enlarged thoracic aorta presented as direct admission for right upper quadrant pain and elevated LFTs. Patient with history acute cholecystitis s/p cholecystectomy on 02/02/[address] Bhumika Lazo. Postop patient experienced A. fib RVR which converted to sinus rhythm with 1 dose IV Lopressor. Patient was discharged home back on her Eliquis and continued on her metoprolol. Patient had been doing well however past couple of days started experiencing right upper quadrant pain, poor appetite, nausea. Today was seen in Dr. Lazo's office and outpatient labs with no leukocytosis, had noted elevated LFTs. Patient being admitted for suspected retained gallstone and for GI consultation for probable ERCP. Pt ate half Barb[place] muffin this morning, for lunch had couple bites of chicken noodle soup and half a banana. Denies fever/chills, diaphoresis, GALICIA, dizziness, syncope, vision changes, neck pain, CP, SOB, orthopnea, palpitations, cough, sore throat, choking, otalgia, rhinorrhea, paresthesias, weakness, extremity weakness, extremity edema, rashes, urinary symptoms. Admission Exam Per Admitting Provider Physical Exam Physical Exam: General: no acute distress, WDWN Head: normocephalic, atraumatic Eyes: PERRL, EOM's intact, conjunctiva non-injected, anicteric ENT: normal inspection external ears, nose, mucous membranes moist Neck: supple, trachea midline Lungs: clear, no respiratory distress, no wheezing/rhonchi/rales CV: RRR, no murmur, no pretibial edema Abd: normal BS, +healed surgical incision to abdomen, soft, +tenderness to palpation RUQ, otherwise abdomen non-tender Ext: no cyanosis, no calf tenderness Neuro: A&O x 3, no focal deficits noted, normal affect Skin: warm, dry Principal Diagnosis Choledocholithiasis Periampullary diverticulum Discharge Data Allergies Allergy/AdvReac Type Severity Reaction Status Date / Time sulfamethoxazole Allergy Intermediate RASH Verified 02/03/20 14:33 trimethoprim Allergy Intermediate RASH Verified 02/03/20 14:33 propoxyphene Allergy Mild Unknown Verified 02/02/20 02:27 Bactrim Allergy Unknown RASH Verified 10/08/17 21:39 erythromycin base Allergy Unknown Unknown Verified 02/02/20 02:27 metronidazole Allergy Unknown Unknown Verified 02/03/20 14:33 Penicillins Allergy Unknown Unknown Verified 02/02/20 02:27 ciprofloxacin [From Cipro] Allergy Unknown Verified 02/02/20 02:27 enalapril AdvReac Intermediate tightness Unverified 02/02/20 02:27 in ankles fentanyl AdvReac Intermediate SEVERE Verified 02/03/20 14:33 N&V;DIZZY topiramate [From Topamax] AdvReac Intermediate fingers Unverified 02/02/20 02:27 numb clindamycin AdvReac Mild Nausea Unverified 02/03/20 14:33 codeine AdvReac Mild SICK TO Verified 02/03/20 14:33 STOMACH Quinolones AdvReac Mild N&V Verified 02/03/20 14:33 tramadol [From Ultram] AdvReac Unknown Unknown Unverified 02/03/20 14:33 Consultations 02/28/20 14:51 Consult Gastroenterology Routine Procedures Performed Operation Date: 02/29/20 07:00 Actual Procedures p Endoscopic Retrograde Cholangiopancreatogram(Not Applicable) - Pardeep Lazo --MRCP:Postoperative changes of interval cholecystectomy. There is no intrahepatic or extrahepatic biliary ductal dilation however there is an apparent filling defect within the mid common bile duct adjacent to a small to moderate air-filled duodenal diverticulum which likely accounts for the signal abnormality. Choledocholithiasis considered less likely however is also a differential consideration. Correlation with LFTs recommended. --ERCP: The major papilla was located entirely within a diverticulum. Biliary papillary stenosis, benign. Choledocholithiasis was found. Complete removal was accomplished by biliary sphincterotomy and balloon extraction. Due to mild post sphincterotomy bleeding, one biliary stent was placed into the common bile duct in addition to injection of sphincterotomy site with 2 mL epinephrine. Indomethacin given to decrease risk for post ERCP pancreatitis. Ordered Studies 02/28/20 16:05 MR MRCP Urgent 02/29/20 [place] ERCP biliary ductal Routine 02/29/20 20:58 CT abd pelvis IV con only Urgent Hospital Course (1) RUQ abdominal pain: (2) Elevated LFTs: Patient is an 85-year-old female with H/O Paroxysmal atrial fibrillation on Eliquis, HTN, dyslipidemia, borderline tachy michael syndrome, migraine, GERD, prediabetes, enlarged thoracic aorta presents with RUQ pain and elevated LFTs. Choledocholithiasis Periampullary diverticulum Postcholecystectomy syndrome H/O cholecystectomy on 02/02/[address] Lazo for acute cholecystitis --MRCP:Postoperative changes of interval cholecystectomy. There is no intrahepatic or extrahepatic biliary ductal dilation however there is an apparent filling defect within the mid common bile duct adjacent to a small to moderate air-filled duodenal diverticulum which likely accounts for the signal abnormality. Choledocholithiasis considered less likely however is also a differential consideration. Correlation with LFTs recommended. --ERCP: The major papilla was located entirely within a diverticulum. Biliary papillary stenosis, benign. Choledocholithiasis was found. Complete removal was accomplished by biliary sphincterotomy and balloon extraction. Due to mild post sphincterotomy bleeding, one biliary stent was placed into the common bile duct in addition to injection of sphincterotomy site with 2 mL epinephrine. Indomethacin given to decrease risk for post ERCP pancreatitis. --Appreciate GI input --Tolerated low fiber diet --Received IV fluids --Pain is well controlled --LFTs trended down --Avoid aspirin, NSAIDs, Eliquis for 1 week --Needs repeat ERCP in 6 weeks for stent removal (3) Paroxysmal atrial fibrillation: Rate controlled Continue metoprolol with holding paramaters Hold Eliquis for 1 week as per GI (4) Hypertension: BP elevated likely due to pain Continue Terazosin Continue Metoprolol--dose decreased to 12.5mg BID Continue amlodipine 5mg daily Bradycardia Metoprolol dose decreased to 12.5mg BID (5) Hyperlipidemia: Continue statin (6) Migraine headache: Continue gabapentin Continue sumatriptan PRN (7) GERD (gastroesophageal reflux disease): Continue Protonix DVT Px: Eliquis on hold Code Status Full Code Disposition Expect to discharge home when medically stable Denies any needs upon discharge Total Time Total Time Spent Total Time Spent (In Minutes): 40 minutes Total Time Includes: Examination of the Patient, Discharge Planning, Medication Reconciliation, Communication With Other Providers and Other Discharge Plan Discharge Items Patient Disposition: Home - Self-Care Reason For Visit: ABD PAIN, NEGATIVE FOR COVID SYMPTOMS Discharge Diagnosis: Choledocholithiasis Periampullary diverticulum Sinus Bradycardia Activity: Resume your previous activity Exercise/Sports: Gradually increase as tolerated Non-emergency contact: Primary Care Provider and Airplane Dispatch Clerk Call non-emergency contact if: you have any medication questions, your symptoms worsen, your pain is not controlled, your pain is worsening, your pain is unusual for you, your pain is concerning for you and you have a fever Follow-up/Referrals: Umm Thompson MD [Primary Care Provider] - 03/07/20 10:05 am Diet: Heart Healthy and Low Fiber Addtl Attending Provider Instructions: Follow up with your PCP on March 07, 2020 at 10:05AM Follow up with your Airplane Dispatch Clerk for repeat endoscopic retrograde cholangiopancreatogram for stent removal in 6 weeks Medication Changes: 1)You can resume taking Eliquis (Apixaban) on March 08, 2020. 2)Your metoprolol dose is decreased to 12.5 mg twice a day as you are noticed to have low heart rate during your hospital stay. 3)You are started on amlodipine 5 mg daily for better control of your blood pressure. Seek immediate medical attention if your symptoms reoccur or worsen Pending Studies at Discharge: No Stand-Alone Forms: [email or web address], Smoking Cessation Medications and DC Order Prescriptions: New amlodipine [Norvasc] 5 mg Tablet 5 mg PO DAILY Qty: 30 RF: 0 Continued clotrimazole-betamethasone 1-0.05 % cream 1 appln TOP .COMPLEX Qty: 15 RF: 3 sumatriptan succinate 100 mg tablet 100 mg PO DAILY PRN (Reason: Migraine Headache) RF: 0 Prolia 60 mg/mL Syringe 1 dose SUBCUT .TWICE A YEAR RF: 0 terazosin 1 mg capsule 1 mg PO HS RF: 0 cholecalciferol (vitamin D3) [Vitamin D3] 2,000 unit Tablet 2,000 unit PO DAILY RF: 0 atorvastatin 40 mg Tablet 40 mg PO HS RF: 0 omeprazole 20 mg Capsule,Delayed Release(Dr/Ec) 20 mg PO DAILY RF: 0 Eliquis 2.5 mg Tablet 2.5 mg PO BID RF: 0 gabapentin 100 mg Capsule 200 mg PO HS RF: 0 Changed metoprolol tartrate 25 mg Tablet 12.5 mg PO BID Qty: 0 RF: 0 Discharge Orders: Discharge Order (Routine); Ordered 03/04/20 Ordered By: Carlitos Blackburn Admission Data Admit Date/Time: 02/28/20 14:43 Attending Provider: Carlitos Blackburn Admit Provider: Stephanie Hernandez Primary Care Provider: Umm Thompson Other Providers: Alice Ricks Other Interventions: Discharge Summary Assessment (RN) Last Done: 03/04/20 12:53 DC Date/Time DO NOT enter until pt leaves facility: 03/04/20 13:30
== END 2020-03-04 13:30 | disposition home or self-care (01) | DRG 446 ==
LOC: SUATTDRO 14:43 → 2W 14:43

== ENCOUNTER 2020-07-20 01:15 | Inpatient (IN) ==
[2020-07-20] MEDS ORDERED: SODIUM CHLORIDE 0.9% 1000ML 1,000 ML IV SCH (01:30)
[2020-07-20] MEDS: MAGNESIUM SULFATE / D5W 1 GM/100 ML BAG IV SCH ×3 (01:41→02:11)
--- NOTE | 2020-07-20 01:48 | Emergency Department Note ---
History of Present Illness General Chief complaint: Arrhythmia/Palpitations Stated complaint: HEART RACING Time Seen by Provider: 07/20/20 01:26 Source: patient, RN notes reviewed and old records reviewed Mode of arrival: ambulatory Limitations: no limitations History of Present Illness Provider complaint: arm weakness, palpitations Onset (ago): hour(s) 2 Location: upper extremity, left and right Radiation: non-radiation Current Pain Intensity: 0 Relieved By: + immobilization Exacerbated By: + movement Associated symptoms: + denies other symptoms Treatments prior to arrival: none This is an 85-year-old female who presents emergency department complaining of bilateral arm weakness. The patient has a history of atrial fibrillation and notes when her atrial fibrillation gets out of control that she develops arm weakness. She denies any chest pain or shortness of breath. She reports that this is been ongoing for at least the past 2 hours. Patient does follow-up with cardiology. Patient has no other complaints. She reports walking around makes the weakness get worse however rest makes the weakness get better. She has not taken anything for the palpitations. Home Medications Home Medications Medication Instructions Recorded Confirmed Type Prolia 1 dose SUBCUT .TWICE A YEAR 01/14/19 07/20/20 History sumatriptan succinate 100 mg PO DAILY PRN 01/14/19 07/20/20 History cholecalciferol (vitamin D3) 2,000 unit PO DAILY 08/29/19 07/20/20 History [Vitamin D3] terazosin 1 mg PO HS 08/29/19 07/20/20 History Eliquis 2.5 mg PO BID 02/02/20 07/20/20 History gabapentin 100 mg PO TID 02/02/20 07/20/20 History clotrimazole-betamethasone 1 appln TOP .COMPLEX PRN 06/06/20 07/20/20 History dicyclomine 10 mg PO QID PRN 06/06/20 07/20/20 History Centrum Silver Women 1 tab PO DAILY 06/22/20 07/20/20 History ropinirole [Requip] 0.25 mg PO HS 07/20/20 07/20/20 History metoprolol tartrate 25 mg PO BID #60 tab 07/22/20 Rx omeprazole 40 mg PO DAILY #30 cap 07/22/20 Rx oxycodone 5 mg PO Q4H PRN #10 tab 07/22/20 Rx Allergies Allergy/AdvReac Type Severity Reaction Status Date / Time sulfamethoxazole Allergy Intermediate RASH Verified 07/20/20 02:35 trimethoprim Allergy Intermediate RASH Verified 07/20/20 02:35 propoxyphene Allergy Mild Unknown Verified 07/20/20 02:35 erythromycin base Allergy Unknown Vomiting Verified 07/20/20 02:35 metronidazole Allergy Unknown Unknown Verified 07/20/20 02:35 Penicillins Allergy Unknown Rash Verified 07/20/20 02:35 ciprofloxacin [From Cipro] Allergy Unknown Verified 07/20/20 02:35 enalapril AdvReac Intermediate tightness Verified 07/20/20 02:35 in ankles fentanyl AdvReac Intermediate SEVERE Verified 07/20/20 02:35 N&V;DIZZY clindamycin AdvReac Mild Nausea Verified 07/20/20 02:35 codeine AdvReac Mild SICK TO Verified 07/20/20 02:35 STOMACH Quinolones AdvReac Mild N&V Verified 07/20/20 02:35 tramadol [From Ultram] AdvReac Unknown Vomiting Verified 07/20/20 02:35 topiramate [From Topamax] AdvReac "FINGERS Verified 07/20/20 02:35 NUMB" Past Med/Surg History Medical History Atrial fibrillation Paroxysmal. Appropriately anticoagulated on Eliquis. Asymptomatic. Diverticulosis Gastroparesis GERD (gastroesophageal reflux disease) History of skin cancer Hyperlipidemia Hypertension Migraines On anticoagulant therapy Sensorineural hearing loss (SNHL) of both ears SNHL (sensorineural hearing loss) Thoracic aortic aneurysm Mildly dilated on echo 02/2019 per cardiology, but not seen on 08/[address] [facility]. Surgical History History of breast biopsy History of cataract surgery History of cholecystectomy 02/02/2020; [facility]; MAC #3, ETT 7.0. No complications. History of cystoscopy W/ STONE EXTRACTION History of ERCP with stone removal and stent placement 02/28 [place] History of lumbar surgery History of Mohs micrographic surgery for skin cancer History of tooth extraction Status post trigger finger release Family History Other Coronary heart disease No family history of adverse response to anesthesia Social History Smoking Status: Never smoker Second Hand Exposure: No; Hx Alcohol Use: No Hx Substance Use: No Preferred Language: Yi Communication Ability: Effective Automatic Transmission Mechanic Required: No Beliefs That Will Affect Care: None marital status: / Current Living Situation: Alone Feels Safe at Home: Yes Review of Systems A total of 10 systems reviewed and were otherwise negative Physical Exam Vital Signs Vital Signs - 24 hr 07/20/20 01:18 Temperature 36.4 C L Temperature Source Oral Pulse Rate 123 H Respiratory Rate 20 Respiratory Effort / Characteristics Non-Labored Spontaneous Respiratory Depth Normal Blood Pressure 146/88 H Blood Pressure Mean 107 Pulse Oximetry 97 Oxygen Delivery Method Room Air Sepsis New/Unexplained Change in Mental Status N/A Sepsis Action Taken by Nursing No Action Required VITAL SIGNS - Vital signs and nursing notes were reviewed. GENERAL - 85-year-old female appearing stated age who is in no acute distress. Communicates well with provider and answers questions appropriately. SKIN - Without rashes. HEAD - NC/AT. EYES - PERRL with EOMI bilaterally. Sclera anicteric. Palpebral conjunctiva pink and moist with no injection noted. EARS - No deformities of external structures noted on gross examination bilaterally. No pain elicited with palpation of the tragus bilaterally. External auditory canals without discharge or otorrhea. Tympanic membranes pearly green without retraction or bulging. No fluid or purulent material visualized behind the TM. Handle of malleus, umbo, cone of light, pars tensa/flaccid all easily visualized. NOSE - Midline and without cyanosis. No epistaxis or purulent drainage noted. Septum midline without deviation or septal hematoma noted. MOUTH/OROPHARYNX - Without perioral cyanosis. Buccal mucosa pink and moist and without leukoplakia. Tongue midline with equal elevation of palate bilaterally. No tonsillar hypertrophy, erythema, or exudates noted. dentition noted. NECK - Neck with FROM. Supple to palpation. lymphadenopathy noted. No nuchal rigidity. LUNGS - Chest wall symmetric without accessory muscle use, intercostals retractions, or central cyanosis. Normal vesicular breath sounds CTA B/L. No wheezes, rales, or rhonchi appreciated. CARDIAC - RRR with S1/S2. No murmur, rubs, or gallops appreciated. ABDOMEN - Abdominal contour without pulsations or visible masses. BS normoactive all four quadrants. No tenderness, palpable masses, hepatosplenomegaly, or ascites noted. EXTREMITIES - No clubbing or peripheral cyanosis. No pretibial edema present. +3/5 radial, posterior tibial, and dorsalis pedis pulses palpated throughout. +5/5 strength noted in UE/LE bilaterally. NEUROLOGIC - Cranial nerves II through XII grossly intact. Sensory intact to light touch throughout. Patellar reflexes +2/4. PSYCH - A&Ox3 and cooperates fully with examiner. Pt is very pleasant and interacts well with examiner. Course Administered Medications Discontinued Medications Acetaminophen (Acetaminophen 325 Mg Tab) 650 mg PO Q4H PRN PRN Reason: Pain or Fever Stop: 08/19/20 06:06 Last Admin: 07/20/20 06:37 Dose: 650 mg Documented by: [id number] Bacitracin (Bacitracin Inj 50,000 Unit Vial) Confirm Administered Dose 50,000 units .ROUTE .STK-MED ONE Stop: 07/21/20 15:27 Last Admin: 07/21/20 15:40 Dose: 50,000 units Documented by: [id number] Bupivacaine HCl (Bupivacaine 0.25% 30 Ml Vial) Confirm Administered Dose 30 ml .ROUTE .STK-MED ONE Stop: 07/21/20 15:26 Last Admin: 07/21/20 15:40 Dose: 30 ml Documented by: [id number] Al Hydrox/Mg Hydrox/Simethicone 72 ml/ Lidocaine HCl 24 ml/ BARCODE IDENTIFIER 1 ea 0 ml PO Q8H PRN PRN Reason: heartburn Stop: 08/19/20 09:50 Last Admin: 07/20/20 19:01 Dose: 24 ml Documented by: [id number] Fentanyl Citrate (Fentanyl Citrate 100 Mcg/2 Ml Vial) Confirm Administered Dose 100 mcg .ROUTE .STK-MED ONE Stop: 07/21/20 15:39 Last Increment: 07/21/20 16:30 Dose: 75 mcg Documented by: [id number] Gabapentin (Gabapentin 100 Mg Cap) 100 mg PO TID MANUELITO Stop: 08/19/20 08:59 Last Admin: 07/22/20 09:06 Dose: 100 mg Documented by: [id number] Admin: 07/21/20 19:46 Dose: 100 mg Documented by: [id number] Admin: 07/21/20 15:03 Dose: Not Given Documented by: [id number] Admin: 07/21/20 08:07 Dose: 100 mg Documented by: [id number] Admin: 07/20/20 19:50 Dose: 100 mg Documented by: [id number] Admin: 07/20/20 15:41 Dose: Not Given Documented by: [id number] Admin: 07/20/20 07:46 Dose: 100 mg Documented by: [id number] Sodium Chloride (Nss 1000ml) 1,000 mls @ 999 mls/hr IV .Q1H1M MANUELITO Stop: 07/20/20 02:30 Last Infusion: 07/20/20 02:46 Dose: 0 mls/hr Documented by: [id number] Admin: 07/20/20 01:54 Dose: 999 mls/hr Documented by: [id number] Magnesium Sulfate/Dextrose (Magnesium Sulfate / D5w) 1 gm in 100 mls @ 200 mls/hr IV Q30M MANUELITO Stop: 07/20/20 02:29 Last Infusion: 07/20/20 02:46 Dose: 0 mls/hr Documented by: [id number] Admin: 07/20/20 02:11 Dose: 200 mls/hr Documented by: [id number] Infusion: 07/20/20 02:11 Dose: 0 mls/hr Documented by: [id number] Admin: 07/20/20 01:41 Dose: 200 mls/hr Documented by: [id number] Magnesium Sulfate/Dextrose (Magnesium Sulfate / D5w) 1 gm in 100 mls @ 200 mls/hr IV Q30M MANUELITO Stop: 07/20/20 02:29 Last Admin: 07/20/20 01:42 Dose: Not Given Documented by: [id number] Admin: 07/20/20 01:42 Dose: Not Given Documented by: [id number] Lactated Ringer's (Lr) 1,000 mls @ 80 mls/hr IV .[id number] ONE Stop: 07/20/20 16:55 Last Infusion: 07/20/20 07:35 Dose: 0 mls/hr Documented by: [id number] Admin: 07/20/20 06:30 Dose: 80 mls/hr Documented by: [id number] Promethazine HCl 12.5 mg/ (Sodium Chloride) 50.5 mls @ 202 mls/hr IV Q6H PRN PRN Reason: Nausea And Vomiting Stop: 08/19/20 06:06 Last Infusion: 07/21/20 09:11 Dose: 0 mls/hr Documented by: [id number] Admin: 07/21/20 08:01 Dose: 202 mls/hr Documented by: [id number] Infusion: 07/20/20 13:18 Dose: 0 mls/hr Documented by: [id number] Admin: 07/20/20 12:26 Dose: 202 mls/hr Documented by: [id number] Lactated Ringer's (Lr) 1,000 mls @ 80 mls/hr IV .[id number] MANUELITO Stop: 08/19/20 06:44 Last Infusion: 07/21/20 19:48 Dose: 0 mls/hr Documented by: [id number] Infusion: 07/21/20 14:49 Dose: 0 mls/hr Documented by: [id number] Admin: 07/21/20 07:17 Dose: 80 mls/hr Documented by: [id number] Infusion: 07/21/20 07:17 Dose: 80 mls/hr Documented by: [id number] Admin: 07/20/20 18:59 Dose: 80 mls/hr Documented by: [id number] Infusion: 07/20/20 18:59 Dose: 80 mls/hr Documented by: [id number] Admin: 07/20/20 07:36 Dose: 80 mls/hr Documented by: [id number] Vancomycin HCl (Vancomycin Hcl) 1,000 mg in 270 mls @ 125 mls/hr IV PREOP MANUELITO; Protocol Stop: 07/21/20 20:00 Last Infusion: 07/21/20 17:35 Dose: 0 mls/hr Documented by: [id number] Admin: 07/21/20 14:48 Dose: 125 mls/hr Documented by: [id number] Ioversol (Ioversol 100ml) 94 ml IV ONCE ONE Stop: 07/20/20 05:59 Last Admin: 07/20/20 05:58 Dose: 94 ml Documented by: [id number] Lidocaine HCl (Lidocaine Hcl 1% 20 Ml Vial) Confirm Administered Dose 20 ml .ROUTE .STK-MED ONE Stop: 07/21/20 15:26 Last Admin: 07/21/20 15:40 Dose: 20 ml Documented by: [id number] Metoprolol Tartrate (Metoprolol Tartrate 1 Mg/Ml Vial) 5 mg IV Q5M PRN PRN Reason: Tachycardia Stop: 08/19/20 01:45 Last Admin: 07/20/20 02:08 Dose: 5 mg Documented by: [id number] Admin: 07/20/20 01:59 Dose: 5 mg Documented by: [id number] Admin: 07/20/20 01:52 Dose: 5 mg Documented by: [id number] Metoprolol Tartrate (Metoprolol Tartrate 25 Mg Tab) 12.5 mg PO BID MANUELITO Stop: 08/19/20 20:59 Last Admin: 07/21/20 19:44 Dose: 12.5 mg Documented by: [id number] Admin: 07/21/20 08:59 Dose: 12.5 mg Documented by: [id number] Admin: 07/20/20 19:52 Dose: Not Given Documented by: [id number] Metoprolol Tartrate (Metoprolol Tartrate 25 Mg Tab) 25 mg PO BID [facility] Stop: 08/21/20 08:59 Last Admin: 07/22/20 09:05 Dose: 25 mg Documented by: [id number] Midazolam HCl (Midazolam Hcl 5 Mg/Ml 1 Ml Vial) Confirm Administered Dose 5 mg .ROUTE .STK-MED ONE Stop: 07/21/20 15:32 Last Increment: 07/21/20 16:30 Dose: 4 mg Documented by: [id number] Morphine Sulfate (Morphine Sulfate 4 Mg/Ml 1 Ml Carp\\Vial) 4 mg IV NOW STA Stop: 07/20/20 09:05 Last Admin: 07/20/20 09:13 Dose: 4 mg Documented by: [id number] Multivitamins/Minerals (Cerovite Adv Formula Tab) 1 tab PO DAILY MANUELITO Stop: 08/19/20 08:59 Last Admin: 07/22/20 09:06 Dose: 1 tab Documented by: [id number] Admin: 07/21/20 08:07 Dose: 1 tab Documented by: [id number] Admin: 07/20/20 07:45 Dose: 1 tab Documented by: [id number] Ondansetron HCl (Ondansetron Inj 2 Mg/Ml 2 Ml Vial) Confirm Administered Dose 4 mg .ROUTE .STK-MED ONE Stop: 07/21/20 15:39 Last Admin: 07/21/20 15:47 Dose: 4 mg Documented by: [id number] Oxycodone HCl (Oxycodone Hcl Ir 5 Mg Tab (Immediate Release)) 5 mg PO Q4H PRN PRN Reason: Pain Stop: 08/03/20 06:06 Last Admin: 07/22/20 03:15 Dose: 5 mg Documented by: [id number] Admin: 07/21/20 18:39 Dose: 5 mg Documented by: [id number] Admin: 07/20/20 19:44 Dose: 5 mg Documented by: [id number] Pantoprazole Sodium (Pantoprazole 40 Mg Tab) 40 mg PO NOW STA Stop: 07/20/20 04:27 Last Admin: 07/20/20 07:45 Dose: 40 mg Documented by: [id number] Pantoprazole Sodium (Pantoprazole 40 Mg Tab) 40 mg PO DAILYBB MANUELITO Stop: 08/20/20 06:29 Last Admin: 07/22/20 03:15 Dose: 40 mg Documented by: [id number] Admin: 07/21/20 06:06 Dose: 40 mg Documented by: [id number] Potassium Chloride (Potassium Chloride 20 Meq Tabcr) 20 meq PO NOW STA Stop: 07/20/20 03:42 Last Admin: 07/20/20 07:45 Dose: 20 meq Documented by: [id number] Ropinirole HCl (Ropinirole Hcl 0.25 Mg Tablet) 0.25 mg PO HS MANUELITO Stop: 08/19/20 20:59 Last Admin: 07/21/20 19:46 Dose: 0.25 mg Documented by: [id number] Admin: 07/20/20 19:50 Dose: 0.25 mg Documented by: [id number] Sumatriptan Succinate (Sumatriptan Succinate 25 Mg Tab) 25 mg PO NOW STA Stop: 07/21/20 05:29 Last Admin: 07/21/20 06:06 Dose: 25 mg Documented by: [id number] Sumatriptan Succinate (Sumatriptan Succinate 25 Mg Tab) 25 mg PO ONE STA Stop: 07/21/20 07:51 Last Admin: 07/21/20 08:00 Dose: 25 mg Documented by: [id number] Terazosin HCl (Terazosin Hcl 1 Mg Cap) 1 mg PO HS MANUELITO Stop: 08/19/20 20:59 Last Admin: 07/21/20 19:44 Dose: 1 mg Documented by: [id number] Admin: 07/20/20 19:52 Dose: 1 mg Documented by: [id number] Medical Decision Making Differential Diagnosis Cardiac ischemia, aortic dissection, pulmonary embolism, pneumothorax, pneumonia, pericarditis, myocarditis, esophageal rupture, GERD, cholecystitis, pancreatitis, musculoskeletal, as well as other pathologies. Medical Records Attestation: I reviewed the patient's medical records. Home Medications Current Medication List: was personally reviewed by me Laboratory Data Attestation: I reviewed the patient's lab results. Result diagrams: 07/21/20 06:19 07/21/20 06:19 Lab Results 07/20/20 07/20/20 07/20/20 Range/Units 01:35 01:35 01:35 WBC 8.94 (4.8-10.8) K/uL RBC 5.18 (4.2-5.4) M/uL Hgb 15.9 (12.0-16.0) g/dL Hct 47.4 H (37-47) % MCV 91.5 (80-100) fL MCH 30.7 (25-34) pg MCHC 33.5 (32-36) g/dL RDW Std Deviation 45.4 (36.4-46.3) fL RDW Coeff of Ling 13.5 (11.5-14.5) % Plt Count 225 (130-400) K/uL MPV 10.0 (7.4-10.4) fL Immature Gran % (Auto) 0.3 % Neut % (Auto) 65.1 % Lymph % (Auto) 27.3 % [place] % (Auto) 5.6 % Eos % (Auto) 1.5 % Baso % (Auto) 0.2 % Neut # (Auto) 5.82 (1.4-6.5) K/uL Lymph # (Auto) 2.44 (1.2-3.4) K/uL [place] # (Auto) 0.50 (0.11-0.59) K/uL Eos # (Auto) 0.13 (0-0.5) K/uL Baso # (Auto) 0.02 (0-0.2) K/uL Immature Gran # (Auto) 0.03 H (0.00-0.02) K/uL Sodium 139 (136-145) mmol/L Potassium 3.8 (3.5-5.1) mmol/L Chloride 104 (98-107) mmol/L Carbon Dioxide 26 (21-32) mmol/L Anion Gap 9.0 (3-11) BUN 24 H (7-18) mg/dl Creatinine 1.09 (0.6-1.2) mg/dl Est Cr Clr Drug Dosing 29.0 ml/min Est GFR ( Amer) 54.0 Est GFR (Non-Af Amer) 46.6 BUN/Creatinine Ratio 22.1 H (10-20) Glucose 111 H (70-99) mg/dl Calcium 10.1 (8.5-10.1) mg/dl Magnesium 2.2 (1.8-2.4) mg/dl Total Bilirubin 0.3 0.2 (0.2-1) mg/dl Direct Bilirubin < 0.1 (0-0.2) mg/dl AST 28 31 (15-37) U/L ALT 31 35 (12-78) U/L Alkaline Phosphatase 95 95 (45-117) U/L Total Creatine Kinase 64 (26-192) U/L CK-MB (CK-2) < 1.0 (0.5-3.6) ng/ml CK/CKMB % Calc TNP Troponin I < 0.015 (0-0.045) ng/ml NT-Pro-B Natriuret Pep 437 (0-1800) pg/ml Total Protein 8.6 H 8.8 H (6.4-8.2) gm/dl Albumin 4.5 4.7 (3.4-5.0) gm/dl Globulin 4.1 H (2.5-4.0) gm/dl Albumin/Globulin Ratio 1.1 (0.9-2) Lipase 150 (73-393) U/L TSH 3.420 (0.300-4.500) uIu/ml Imaging Data Radiologist's Impression: [place], [place] [phone] XRay Report Patient: ISMAEL MONTANA Date: 07/20/20 MR#: [id number] TIA LIZ Acct ID:[id number]: [facility] [address] [facility] [address] Zip: [place] [address] Age: 85Location: 2S Sex: FRoom/Bed[facility] Att Phy: [place], Stephanie M., DODiagnosis: AF Brina Phy: Rufino SorensonViri, DOService Date: 07/20/20 Fam Phy:Interpreting Phy: Roberto Carlos Pena MD Admit Phy: Modesto Smalls MD Ordering Phy: Natalia Damon PA-C cc: ~ XR chest 1V portable CLINICAL HISTORY: palpitations COMPARISON STUDY: 06/22/2020 FINDINGS: The heart is borderline enlarged. There is no failure. There is no focal pulmonary consolidation. There are no pleural effusions.[ IMPRESSION: No active disease in the chest. ACT 112: Negative or not required by law. Electronically signed by: Roberto Carlos Pena M.D. 07/20/2020 8:17 AM Dictated: 07/20/20816 Transcribed: 07/20/20816 ECG Data Attestation: I personally reviewed and interpreted this ECG as follows: Indication: + palpitations Rate (beats per minute): 154 Rhythm: + atrial fibrillation (with RVR) ECG [place]: + Normal ECG ST segments: + ST depression (Inferior) Comparison ECG Date: from (06/22/2020) Change: the following changes noted (afib replaced NSR) MDM Narrative This patient presents to the emergency department during a period of high-volume high acuity. Patient was seen and evaluated as above in room C12. Review was performed of nursing notes and vital signs. I did review pertinent previous visits and patient history. After obtaining a thorough history and physical examination the above work up was performed. This is an 85-year-old female who presents emergency department with atrial fibrillation. The patient was given 4 g of magnesium here and given multiple doses of Lopressor. Repeat evaluation revealed improvement the patient's symptoms. Because the patient remains in A. fib with RVR did discuss the case the hospitalist service who did agree to meet the patient. Patient is in agreement with the treatment plan. An order was placed for continuous cardiac monitoring. The monitor shows a rate of 110 with a fib rhythm. The patient was evaluated during the global COVID-19 pandemic, and that diagnosis was suspected/considered upon their initial presentation. Their evaluation, treatment and testing was consistent with current guidelines for patients who present with complaints or symptoms that may be related to COVID- 19. Impression & Plan Palpitations, Atrial fibrillation with RVR Discharge Plan Visit Data Chief Complaint: Arrhythmia/Palpitations Stated Complaint: HEART RACING ED Provider: Tahir Au Discharge Problem: Palpitations, Atrial fibrillation with RVR Patient Disposition: Admitted As Inpatient Condition: Good Discharge Instructions Interventions: ED Discharge Assessment Last Done: 07/20/20 05:51
[2020-07-20 01:52] LABS: Basophils # (auto) 0.02 K/uL (0-0.2); Basophils % (auto) 0.2 %; Eosinophils # (auto) 0.13 K/uL (0-0.5); Eosinophils % (auto) 1.5 %; Hematocrit (blood only) 47.4 % (37-47); Hemoglobin 15.9 g/dL (12.0-16.0); Immature Granulocytes # (auto) 0.03 K/uL (0.00-0.02); Immature Granulocytes % (auto) 0.3 %; Lymphocytes # (auto) 2.44 K/uL (1.2-3.4); Lymphocytes % (auto) 27.3 %; Mean Corpuscular Hemoglobin 30.7 pg (25-34); Mean Corpuscular Hgb Conc 33.5 g/dL (32-36); Mean Corpuscular Volume 91.5 fL (80-100); Monocytes % (auto) 5.6 %; Neutrophils # (auto) 5.82 K/uL (1.4-6.5); Neutrophils % (auto) 65.1 %; Platelet Count 225 K/uL (130-400); RDW Coefficient of Variation 13.5 % (11.5-14.5); RDW Standard Deviation 45.4 fL (36.4-46.3); Red Blood Count 5.18 M/uL (4.2-5.4); White Blood Count 8.94 K/uL (4.8-10.8)
[2020-07-20] MEDS: METOPROLOL TARTRATE 1 MG/ML VIAL IV PRN ×3 (01:52→02:08)
[2020-07-20 03:06] LABS: Alanine Aminotransferase 31 U/L (12-78); Albumin Globulin Ratio 1.1 (0.9-2); Albumin Level 4.5 gm/dl (3.4-5.0); Aspartate Aminotransferase 28 U/L (15-37); BUN Creatinine Ratio 22.1 (10-20); Blood Urea Nitrogen 24 mg/dl (7-18); Calcium 10.1 mg/dl (8.5-10.1); Carbon Dioxide 26 mmol/L (21-32); Chloride 104 mmol/L (98-107); Creatine Kinase 64 U/L (26-192); Creatine Kinase MB < 1.0 ng/ml (0.5-3.6); Est GFR (Non-African American) 46.6; Globulin 4.1 gm/dl (2.5-4.0); Glucose 111 mg/dl (70-99); Magnesium 2.2 mg/dl (1.8-2.4); Potassium 3.8 mmol/L (3.5-5.1); Sodium 139 mmol/L (136-145); Total Protein 8.6 gm/dl (6.4-8.2); Troponin I < 0.015 ng/ml (0-0.045)
[2020-07-20 03:16] LABS: Alkaline Phosphatase 95 U/L (45-117); Bilirubin,Total 0.3 mg/dl (0.2-1); NT Pro B Type Natriuretic Pept 437 pg/ml (0-1800)
[2020-07-20] MEDS ORDERED: POTASSIUM CHLORIDE 20 MEQ TABCR PO STA (03:41)
--- NOTE | 2020-07-20 04:18 | History & Physical Report ---
Date of Service July 20, 2020 Assessment & Plan (1) Atrial fibrillation with RVR: Recurrent A. fib (borderline SSS as per records) ? 2 to intra-abdominal pathology (low-grade bowel obstruction versus enteritis on initial CT read ) Patient converted to NSR at the ER. Currently under bradycardic side. On Eliquis for anticoagulation HTN, currently stable hyperlipidemia on statin Rx OBS PCU Continue home beta-jolene at current dose until patient seen by cardiology Further management of recurrent AF as per Cardiology Follow official CT read Bowel rest until official CT results known Surgery consult if official CT shows bowel obstruction DVT prophylaxis. Hold Eliquis until CT results known, SCDs interim Full code Text document was generated using [employer] voice recognition software. It may contain grammatical or spelling errors. Kindly contact undersigned for clarification of any documentation item in question. History of Present Illness Chief Complaint: A. fib, fast pulse Primary Care Provider: Rufino Sorenson, History obtained from patient and records. Medical history significant for A. fib (borderline tachybradycardia syndrome as per records) on Eliquis, hypertension, hyperlipidemia, Raynaud's phenomenon as per records, GERD, gastroparesis as per records, urolithiasis, diverticulosis as per records. 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 Recent ER visit last month for palpitations, rapid AVR rapid A. fib. Conversion to NSR post Cardizem administration. On outpatient cardiology visit a week after ER visit, 7-day ZIO patch monitor recommended to evaluate for asymptomatic episodes of A. fib or any significant bradycardic episodes given history of borderline sick sinus syndrome. 4 days ago patient noted palpitations, cardiac rate 140s. Some stress regarding ill fitting hearing aids. Extra metoprolol doses as per flavoring oil filterer recommendations low with heart rate of 60. Outpatient follow-up visit with cardiology scheduled for 07/21/20. Plan patient was getting ready for bed when she experienced epigastric discomfort heartburn-like without actual chest pain or shortness of breath. No black/bloody stools. Patient did not feel well. SBP at home noted to be 160s, cardiac rate 140s. Patient consulted ER for persistent tachycardia. At the ER, cardiac rate 130s at the highest. IV Lopressor doses given at the ER. Patient subsequently converted to NSR at the ER. Cardiac rate currently 50 to 60s. 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 Allergies Allergy/AdvReac Type Severity Reaction Status Date / Time sulfamethoxazole Allergy Intermediate RASH Verified 07/20/20 02:35 trimethoprim Allergy Intermediate RASH Verified 07/20/20 02:35 propoxyphene Allergy Mild Unknown Verified 07/20/20 02:35 erythromycin base Allergy Unknown Vomiting Verified 07/20/20 02:35 metronidazole Allergy Unknown Unknown Verified 07/20/20 02:35 Penicillins Allergy Unknown Rash Verified 07/20/20 02:35 ciprofloxacin [From Cipro] Allergy Unknown Verified 07/20/20 02:35 enalapril AdvReac Intermediate tightness Verified 07/20/20 02:35 in ankles fentanyl AdvReac Intermediate SEVERE Verified 07/20/20 02:35 N&V;DIZZY clindamycin AdvReac Mild Nausea Verified 07/20/20 02:35 codeine AdvReac Mild SICK TO Verified 07/20/20 02:35 STOMACH Quinolones AdvReac Mild N&V Verified 07/20/20 02:35 tramadol [From Ultram] AdvReac Unknown Vomiting Verified 07/20/20 02:35 topiramate [From Topamax] AdvReac "FINGERS Verified 07/20/20 02:35 NUMB" Home Medications Home Medications Medication Instructions Recorded Confirmed Type Prolia 1 dose SUBCUT .TWICE A YEAR 01/14/19 07/20/20 History sumatriptan succinate 100 mg PO DAILY PRN 01/14/19 07/20/20 History cholecalciferol (vitamin D3) 2,000 unit PO DAILY 08/29/19 07/20/20 History [Vitamin D3] terazosin 1 mg PO HS 08/29/19 07/20/20 History Eliquis 2.5 mg PO BID 02/02/20 07/20/20 History gabapentin 100 mg PO TID 02/02/20 07/20/20 History omeprazole 20 mg PO DAILYBB 02/02/20 07/20/20 History metoprolol tartrate 12.5 mg PO BID #0 tab 03/04/20 07/20/20 Rx clotrimazole-betamethasone 1 appln TOP .COMPLEX PRN 06/06/20 07/20/20 History dicyclomine 10 mg PO QID PRN 06/06/20 07/20/20 History rrrvemqe-qme-lryy-FA-lutein 1 tab PO DAILY 06/22/20 07/20/20 History [Centrum Silver Women] ropinirole [Requip] 0.25 mg PO HS 07/20/20 07/20/20 History Past Med/Surg History Medical History (Updated 07/07/20 @ 00:03 by Radha Lai) Atrial fibrillation Paroxysmal. Appropriately anticoagulated on Eliquis. Asymptomatic. Diverticulosis Gastroparesis GERD (gastroesophageal reflux disease) History of skin cancer Hyperlipidemia Hypertension Migraines On anticoagulant therapy Sensorineural hearing loss (SNHL) of both ears SNHL (sensorineural hearing loss) Thoracic aortic aneurysm Mildly dilated on echo 02/2019 per cardiology, but not seen on 08/2019 echo at [facility]. Surgical History History of breast biopsy History of cataract surgery History of cholecystectomy 02/02/2020; [facility]; MAC #3, ETT 7.0. No complications. History of cystoscopy W/ STONE EXTRACTION History of ERCP with stone removal and stent placement 02/28 [place] History of lumbar surgery History of Mohs micrographic surgery for skin cancer History of tooth extraction Status post trigger finger release Family History Other Coronary heart disease No family history of adverse response to anesthesia Social History Smoking Status: Never smoker Second Hand Exposure: No; Do You Dip or Chew Tobacco: No; Hx Alcohol Use: No Hx Substance Use: No Preferred Language: Khmer Communication Ability: Effective Bar Roller Required: No Beliefs That Will Affect Care: None marital status: / Current Living Situation: Alone Feels Safe at Home: Yes Safety Concerns: Feels Safe At This Time Review of Systems Review of Systems: As per HPI, all 10 systems reviewed, all other ROS negative Physical Exam Physical Exam: GENERAL: Comfortable, looks younger for stated age, no respiratory distress SKIN: Normal color, warm HEENT: [place] palpebral conjunctivae, no ptosis, dry buccal mucosa NECK : Supple, no tenderness CHEST : CTA, no tenderness HEART : Bradycardic , no obvious murmurs ABDOMEN: Some distention, minimal epigastric tenderness EXTREMITIES : No LE swelling/tenderness, no other conspicuous deformities noted NEUROLOGIC : Coherent, no facial asymmetry, no other gross focality Results & Data Results & Data ([facility]) Vital Signs (Past 12 Hours) Vital Signs Temp Pulse Pulse Resp BP BP Pulse Ox 07/20/20 02:44 128 H 18 123/96 94 07/20/20 02:30 121 H 17 122/71 93 07/20/20 02:25 134 H 15 106/81 97 07/20/20 02:20 125 H 15 100/88 96 07/20/20 02:15 108 H 17 123/93 94 07/20/20 02:08 123 H 133/95 07/20/20 01:59 130 H 118/93 07/20/20 01:56 132 H 118/93 07/20/20 01:52 126 H 142/108 H 07/20/20 01:18 36.4 C L 123 H 20 146/88 H 97 Laboratory Results Laboratory Results WBC 8.94 K/uL (4.8-10.8) 07/20/20 01:35 RBC 5.18 M/uL (4.2-5.4) 07/20/20 01:35 Hgb 15.9 g/dL (12.0-16.0) 07/20/20 01:35 Hct 47.4 % (37-47) H 07/20/20 01:35 MCV 91.5 fL (80-100) 07/20/20 01:35 MCH 30.7 pg (25-34) 07/20/20 01:35 MCHC 33.5 g/dL (32-36) 07/20/20 01:35 RDW Std Deviation 45.4 fL (36.4-46.3) 07/20/20 01:35 RDW Coeff of Ling 13.5 % (11.5-14.5) 07/20/20 01:35 Plt Count 225 K/uL (130-400) 07/20/20 01:35 MPV 10.0 fL (7.4-10.4) 07/20/20 01:35 Immature Gran % (Auto) 0.3 % 07/20/20 01:35 Neut % (Auto) 65.1 % 07/20/20 01:35 Lymph % (Auto) 27.3 % 07/20/20 01:35 Logan % (Auto) 5.6 % 07/20/20 01:35 Eos % (Auto) 1.5 % 07/20/20 01:35 Baso % (Auto) 0.2 % 07/20/20 01:35 Neut # (Auto) 5.82 K/uL (1.4-6.5) 07/20/20 01:35 Lymph # (Auto) 2.44 K/uL (1.2-3.4) 07/20/20 01:35 Logan # (Auto) 0.50 K/uL (0.11-0.59) 07/20/20 01:35 Eos # (Auto) 0.13 K/uL (0-0.5) 07/20/20 01:35 Baso # (Auto) 0.02 K/uL (0-0.2) 07/20/20 01:35 Immature Gran # (Auto) 0.03 K/uL (0.00-0.02) H 07/20/20 01:35 Sodium 139 mmol/L (136-145) 07/20/20 01:35 Potassium 3.8 mmol/L (3.5-5.1) 07/20/20 01:35 Chloride 104 mmol/L (98-107) 07/20/20 01:35 Carbon Dioxide 26 mmol/L (21-32) 07/20/20 01:35 Anion Gap 9.0 (3-11) 07/20/20 01:35 BUN 24 mg/dl (7-18) H 07/20/20 01:35 Creatinine 1.09 mg/dl (0.6-1.2) 07/20/20 01:35 Est Cr Clr Drug Dosing 29.0 ml/min 07/20/20 01:35 Est GFR ( Amer) 54.0 07/20/20 01:35 Est GFR (Non-Af Amer) 46.6 07/20/20 01:35 BUN/Creatinine Ratio 22.1 (10-20) H 07/20/20 01:35 Glucose 111 mg/dl (70-99) H 07/20/20 01:35 Calcium 10.1 mg/dl (8.5-10.1) 07/20/20 01:35 Magnesium 2.2 mg/dl (1.8-2.4) 07/20/20 01:35 Total Bilirubin 0.3 mg/dl (0.2-1) 07/20/20 01:35 AST 28 U/L (15-37) 07/20/20 01:35 ALT 31 U/L (12-78) 07/20/20 01:35 Alkaline Phosphatase 95 U/L (45-117) 07/20/20 01:35 Total Creatine Kinase 64 U/L (26-192) 07/20/20 01:35 CK-MB (CK-2) < 1.0 ng/ml (0.5-3.6) 07/20/20 01:35 CK/CKMB % Calc TNP 07/20/20 01:35 Troponin I < 0.015 ng/ml (0-0.045) 07/20/20 01:35 NT-Pro-B Natriuret Pep 437 pg/ml (0-1800) 07/20/20 01:35 Total Protein 8.6 gm/dl (6.4-8.2) H 07/20/20 01:35 Albumin 4.5 gm/dl (3.4-5.0) 07/20/20 01:35 Globulin 4.1 gm/dl (2.5-4.0) H 07/20/20 01:35 Albumin/Globulin Ratio 1.1 (0.9-2) 07/20/20 01:35 TSH 3.420 uIu/ml (0.300-4.500) 07/20/20 01:35 Diagnostic Findings Chest x-ray as per my interpretation cardiomegaly CT abdomen pelvis initial read: Small bowel loops mildly prominent measuring up to 3.1 cm in diameter. No definite transition point is identified. Small bowel dilatation could be from low-grade obstruction or enteritis. Distal small bowel loops are not dilated 1.1 cm hypodensity in the spleen similar to June 07, 2020 CT. Small hiatal hernia. Status post cholecystectomy. Sigmoid colonic diverticulosis. Normal appendix. Moderate amount of fecal matter seen in the right colon. Discoid atelectasis seen in the right middle lobe and lingula. EKG as per my interpretation : Rate 150, A. fib, LAD, LAFB, ST depression lateral leads
[2020-07-20] MEDS ORDERED: PANTOprazole 40 MG TAB PO STA (04:26)
[2020-07-20] MEDS ORDERED: METOPROLOL TARTRATE 50 MG TAB PO STA (04:26)
[2020-07-20] MEDS ORDERED: LACTATED RINGER'S 1,000 ML IV ONE (04:26)
[2020-07-20 05:05] LABS: Lipase 150 U/L (73-393)
[2020-07-20] MEDS ORDERED: IOVERSOL 100ml IV ONE (05:58)
[2020-07-20] MEDS ORDERED: NITROGLYCERIN SL 0.4 MG/TAB TAB SL PRN (06:07)
[2020-07-20] MEDS ORDERED: LORazepam 0.25 MG/0.5 ML VIAL IV PRN (06:07)
[2020-07-20] MEDS ORDERED: ACETAMINOPHEN 325 MG TAB PO PRN (06:07)
--- NOTE | 2020-07-20 07:33 | CT Scan Report ---
CT OF THE ABDOMEN AND PELVIS WITH CONTRAST CLINICAL HISTORY: Abdominal pain. COMPARISON STUDY: CT of the abdomen and pelvis June 07, 2020. TECHNIQUE: Following IV administration of 94 mL of Optiray-320, axial images of the abdomen and pelvi s were obtained from the lung bases to the proximal femurs. Images were reviewed in the axial, sagitt al, and coronal planes. IV contrast was administered without complication. Automated exposure contro l was utilized for the study. A dose lowering technique was utilized adhering to the principles of A ANN. CT DOSE: 247.68 mGy.cm FINDINGS: Scattered tree-in-bud nodules within the lower lungs are noted. A 1 cm hypodense splenic le alicia is unchanged. This is likely benign. The liver, adrenal glands and pancreas are unremarkable. Th ere is no biliary ductal dilatation status post cholecystectomy. There is a diverticulum of the secon d portion the duodenum. There is no peripancreatic infiltration. Water attenuation bilateral renal le sions reflect cysts. There is no hydronephrosis. The caliber and wall thickness of small and large kathryn wel are normal. The appendix is normal. There is sigmoid diverticulosis without evidence for acute di verticulitis. Pericolonic inflammation and wall thickening shown on prior CT has resolved. There is n o abscess. No suspicious osseous lesions are noted. A few prominent fluid-filled loops of small bowel are noted. There is no transition point. IMPRESSION: 1. A few prominent fluid-filled loops of small bowel. Findings likely within normal limits or may ref lect an enteritis. A low-grade partial small bowel bowel obstruction is considered less likely. 2. Colonic diverticulosis without evidence for acute diverticulitis. ACT 112: Negative or not required by law. Electronically signed by: Jaden Orozco M.D. 07/20/2020 7:32 AM
[2020-07-20] MEDS: LACTATED RINGER'S 1,000 ML IV SCH ×2 (07:36→18:59)
[2020-07-20] MEDS: CEROVITE ADV FORMULA TAB PO SCH (07:45)
[2020-07-20] MEDS: GABAPENTIN 100 MG CAP PO SCH ×3 (07:46→19:50)
--- NOTE | 2020-07-20 08:19 | XRay Report ---
XR chest 1V portable CLINICAL HISTORY: palpitations COMPARISON STUDY: 06/22/2020 FINDINGS: The heart is borderline enlarged. There is no failure. There is no focal pulmonary consolid ation. There are no pleural effusions.[ IMPRESSION: No active disease in the chest. ACT 112: Negative or not required by law. Electronically signed by: Roberto Carlos Pena M.D. 07/20/2020 8:17 AM
[2020-07-20] MEDS ORDERED: MoRPHine SULFATE 4 MG/ML 1 ML CARP\\VIAL IV STA (09:04)
[2020-07-20] MEDS ORDERED: ALUMINUM/MAGNESIUM SUSP 72 ML, LIDOCAINE HCL VISCOUS 2% 24 ML, BARCODE IDENTIFIER 1 EA PO PRN (09:51)
--- NOTE | 2020-07-20 09:59 | Hospitalist Progress Note ---
Date of Service July 20, 2020 Assessment & Plan (1) Enteritis: severe abdominal pain this morning. Improved with morphine. She had already taken her morning PPI and had not had breakfast. Pain was epigastric. She has no hematochezia, hematemesis, n/v, or other alarm symptoms. She was better with morphine. Pain is still epigastric on tenderness to palpation. No evidence of pancreatitis. Gi consult requested. No h/o PUD in the past. Recent difficult ERCP earlier this year with biliary stent removed 03/28. She reports an outpatient episode of diverticulitis last month, also. Suspect this is a simple community-acquired enteritis, however, she will be getting a pacemaker, and would like to ensure with the spa consultant that nothing else sinister is going on. (2) Atrial fibrillation with RVR: afib w RVR converted to sinus rhythm overnight. Cont Lopressor 12.5 BID per home regimen for now with hold parameters. Cont telemetry monitoring. 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 She is not receiving Eliquis since admission so will cont to hold this now. (4) Sensorineural hearing loss (SNHL) of both ears: new hearing aids in place. (5) GERD (gastroesophageal reflux disease): Protonix 40 daily given here as a substitution for home omeprazole 20mg PO daily. With heartburn in the evenings, may change to PPI BID for the time being. GI to see her this am becasue of severe abdominal pain and would defer that to them. (6) Gastroparesis: Eat small frequent meals. (7) DVT prophylaxis: SCDs-Eliquis on hold Started her on clears, progress as tolerated to full diet. Await day for PM insertion, and then will make NPO the night before. Full Code Dispo-cont PCU monitoring. Stephanie Hernandez DO [facility]ist Admission and Anticipated Discharge Date Admission Date: July 20, 2020 Subjective converted to sinus rhythm overnight patient reports severe central subxiphoid pain that is severe-this was improved with morphine 4mg IV this morning. 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 Review of Systems Review of Systems: All systems reviewed & are unremarkable except as noted in Subjective Physical Exam Physical Exam: CONSTITUTIONAL: WNWD, vitals as above, generally well- appearing EYES: normal conjunctivae, no scleral icterus ENT: external ear and nose normal, MMM RESPIRATORY: clear to auscultation bilaterally, no crackles, rales or wheezes, normal respiratory effort CARDIOVASCULAR: regular rate and rhythm, S1 and 2 heard without murmurs, gallops or rubs, no JVD, no peripheral edema, MMM GASTROINTESTINAL: normal bowel sounds, soft, nontender, nondistended MUSCULOSKELETAL: strength 5/5 throughout, head is normocephalic and atraumatic SKIN: warm and dry NEUROLOGIC: CN 2-12 grossly intact, no sensory deficit, normal cognition, normal speech, no gross focal deficit. PSYCHIATRIC: alert cooperative and oriented to person, place and time. Results & Data Results & Data ([facility]) Vital Signs (Past 12 Hours) Vital Signs Temp Pulse Pulse Resp BP BP Pulse Ox 07/20/20 09:40 54 L 07/20/20 08:14 36.5 C 60 18 148/70 H 95 07/20/20 06:08 36.7 C 55 L 16 159/74 H 97 07/20/20 06:07 07/20/20 05:30 54 L 13 107/60 94 07/20/20 05:00 55 L 14 103/54 L 94 07/20/20 04:31 58 L 19 120/70 95 07/20/20 03:30 114 H 12 101/75 94 07/20/20 03:00 139 H 17 110/93 94 07/20/20 02:44 128 H 18 123/96 94 07/20/20 02:30 121 H 17 122/71 93 07/20/20 02:25 134 H 15 106/81 97 07/20/20 02:20 125 H 15 100/88 96 07/20/20 02:15 108 H 17 123/93 94 07/20/20 02:08 123 H 133/95 07/20/20 01:59 130 H 118/93 07/20/20 01:56 132 H 118/93 07/20/20 01:52 126 H 142/108 H 07/20/20 01:18 36.4 C L 123 H 20 146/88 H 97 Pulse Ox 07/20/20 09:40 07/20/20 08:14 07/20/20 06:08 07/20/20 06:07 97 07/20/20 05:30 07/20/20 05:00 07/20/20 04:31 07/20/20 03:30 07/20/20 03:00 07/20/20 02:44 07/20/20 02:30 07/20/20 02:25 07/20/20 02:20 07/20/20 02:15 07/20/20 02:08 07/20/20 01:59 07/20/20 01:56 07/20/20 01:52 07/20/20 01:18 Laboratory Results Short CBC 07/20/20 Range/Units 01:35 WBC 8.94 (4.8-10.8) K/uL Hgb 15.9 (12.0-16.0) g/dL Hct 47.4 H (37-47) % Plt Count 225 (130-400) K/uL BMP 07/20/20 01:35 Sodium 139 Potassium 3.8 Chloride 104 Carbon Dioxide 26 BUN 24 H Creatinine 1.09 Glucose 111 H Calcium 10.1 Cardiac Enzymes 07/20/20 Range/Units 01:35 Total Creatine Kinase 64 (26-192) U/L CK-MB (CK-2) < 1.0 (0.5-3.6) ng/ml Troponin I < 0.015 (0-0.045) ng/ml Liver Function 07/20/20 Range/Units 01:35 Total Bilirubin 0.3 (0.2-1) mg/dl AST 28 (15-37) U/L ALT 31 (12-78) U/L Alkaline Phosphatase 95 (45-117) U/L Albumin 4.5 (3.4-5.0) gm/dl Diagnostic Findings CT OF THE ABDOMEN AND PELVIS WITH CONTRAST CLINICAL HISTORY: Abdominal pain. FINDINGS: Scattered tree-in-bud nodules within the lower lungs are noted. A 1 cm hypodense splenic lesion is unchanged. This is likely benign. The liver, adrenal glands and pancreas are unremarkable. There is no biliary ductal dilatation status post cholecystectomy. There is a diverticulum of the second portion the duodenum. There is no peripancreatic infiltration. Water attenuation bilateral renal lesions reflect cysts. There is no hydronephrosis. The caliber and wall thickness of small and large bowel are normal. The appendix is normal. There is sigmoid diverticulosis without evidence for acute diverticulitis. Pericolonic inflammation and wall thickening shown on prior CT has resolved. There is no abscess. No suspicious osseous lesions are noted. A few prominent fluid-filled loops of small bowel are noted. There is no transition point. IMPRESSION: 1. A few prominent fluid-filled loops of small bowel. Findings likely within normal limits or may reflect an enteritis. A low-grade partial small bowel bowel obstruction is considered less likely. 2. Colonic diverticulosis without evidence for acute diverticulitis. XR chest 1V portable CLINICAL HISTORY: palpitations COMPARISON STUDY: 06/22/2020 FINDINGS: The heart is borderline enlarged. There is no failure. There is no focal pulmonary consolidation. There are no pleural effusions.[ IMPRESSION: No active disease in the chest. Medications Administered Current Inpatient Medications Acetaminophen (Acetaminophen 325 Mg Tab) 650 mg PO Q4H PRN PRN Reason: Pain or Fever Stop: 08/19/20 06:06 Last Admin: 07/20/20 06:37 Dose: 650 mg Documented by: Al Hydrox/Mg Hydrox/Simethicone 72 ml/ Lidocaine HCl 24 ml/ BARCODE IDENTIFIER 1 ea 0 ml PO Q8H PRN PRN Reason: heartburn Stop: 08/19/20 09:50 Gabapentin (Gabapentin 100 Mg Cap) 100 mg PO TID MANUELITO Stop: 08/19/20 08:59 Last Admin: 07/20/20 07:46 Dose: 100 mg Documented by: Promethazine HCl 12.5 mg/ (Sodium Chloride) 50.5 mls @ 202 mls/hr IV Q6H PRN PRN Reason: Nausea And Vomiting Stop: 08/19/20 06:06 Lorazepam (Ativan) 0.25 mg in 0.5 mls @ 0.5 mls/min IV Q4H PRN PRN Reason: Anxiety Stop: 08/19/20 06:06 Lactated Ringer's (Lr) 1,000 mls @ 80 mls/hr IV .[id number] MANUELITO Stop: 08/19/20 06:44 Last Admin: 07/20/20 07:36 Dose: 80 mls/hr Documented by: Metoprolol Tartrate (Metoprolol Tartrate 25 Mg Tab) 12.5 mg PO BID MANUELITO Stop: 08/19/20 20:59 Multivitamins/Minerals (Cerovite Adv Formula Tab) 1 tab PO DAILY MANUELITO Stop: 08/19/20 08:59 Last Admin: 07/20/20 07:45 Dose: 1 tab Documented by: Nitroglycerin (Nitroglycerin Sl 0.4 Mg/Tab Tab) 0.4 mg SL UD PRN PRN Reason: Chest Pain Stop: 08/19/20 06:06 Oxycodone HCl (Oxycodone Hcl Ir 5 Mg Tab (Immediate Release)) 5 mg PO Q4H PRN PRN Reason: Pain Stop: 08/03/20 06:06 Pantoprazole Sodium (Pantoprazole 40 Mg Tab) 40 mg PO DAILYBB MANUELITO Stop: 08/20/20 06:29 Ropinirole HCl (Ropinirole Hcl 0.25 Mg Tablet) 0.25 mg PO HS MANUELITO Stop: 08/19/20 20:59 Terazosin HCl (Terazosin Hcl 1 Mg Cap) 1 mg PO HS MANUELITO Stop: 08/19/20 20:59
--- NOTE | 2020-07-20 10:01 | Electrocardiogram Report ---
Test Reason : Blood Pressure : / mmHG Vent. Rate : 154 BPM Atrial Rate : 138 BPM P-R Int : 000 ms QRS Dur : 080 ms QT Int : 294 ms P-R-T Axes : 000 -03 185 degrees QTc Int : 470 ms Atrial fibrillation with rapid ventricular response Inferolateral ST depression Abnormal ECG When compared with ECG of 22-JUN-2020 18:33, Atrial fibrillation has replaced Sinus rhythm Vent. rate has increased BY [address] now depressed in Inferior leads ST now depressed in Anterolateral leads Confirmed by Jack Gonzalez ([id number]) on 07/20/2020 10:01:22 AM Referred By: REFERRED SELF Confirmed By:Jack Gonzalez
--- NOTE | 2020-07-20 10:05 | Electrocardiogram Report ---
Test Reason : Blood Pressure : / mmHG Vent. Rate : 056 BPM Atrial Rate : 100 BPM P-R Int : 000 ms QRS Dur : 088 ms QT Int : 480 ms P-R-T Axes : 000 034 069 degrees QTc Int : 463 ms Marked sinus bradycardia with Pac's Abnormal ECG When compared with ECG of 20-JUL-2020 01:26, (unconfirmed) Marked sinus bradycardia has replaced Afib PAC's are present Vent. rate has decreased BY [address] no longer depressed in Inferior leads ST no longer depressed in Anterolateral leads Confirmed by Jack Gonzalez ([id number]) on 07/20/2020 10:05:23 AM Referred By: REFERRED SELF Confirmed By:Jack Gonzalez
--- NOTE | 2020-07-20 10:06 | Electrocardiogram Report ---
Test Reason : Blood Pressure : / mmHG Vent. Rate : 053 BPM Atrial Rate : 053 BPM P-R Int : 204 ms QRS Dur : 088 ms QT Int : 472 ms P-R-T Axes : 089 -08 062 degrees QTc Int : 442 ms Sinus bradycardia with Premature atrial complexes Otherwise normal ECG When compared with ECG of 20-JUL-2020 07:01, (unconfirmed) No significant change was found Confirmed by Jack Gonzalez ([id number] on 07/20/2020 10:05:51 AM Referred By: REFERRED SELF Confirmed By:Jack Gonzalez
[2020-07-20 10:13] LABS: Alanine Aminotransferase 35 U/L (12-78); Albumin Level 4.7 gm/dl (3.4-5.0); Alkaline Phosphatase 95 U/L (45-117); Aspartate Aminotransferase 31 U/L (15-37); Bilirubin Direct < 0.1 mg/dl (0-0.2); Bilirubin,Total 0.2 mg/dl (0.2-1); Total Protein 8.8 gm/dl (6.4-8.2)
--- NOTE | 2020-07-20 10:58 | Cardiology Consultation ---
Date of Consultation July 20, 2020 Assessment & Plan (1) Paroxysmal atrial fibrillation: (2) Tachy-michael syndrome: (3) Enteritis: I long discussion regarding the natural history and pathophysiology of paroxysmal atrial fibrillation, stroke risk, and tachycardiabradycardia syndrome. Risk versus benefit of pacemaker implantation discussed. I explained that implantation of pacemaker will allow us to titrate/adjust AV aquiles blocking agents to improve control of atrial fibrillation. Patient voiced understanding. She is agreeable to proceed with pacemaker implantation. Electrophysiology consultation requested. Timing of pacemaker implantation depending on gastroenterology evaluation regarding possible enteritis. Thank you for allowing to participate in the care of your patient. I will continue to follow closely during hospitalization. History of Present Illness Reason for Consultation: Atrial fibrillation with rapid ventricular response Requesting Physician: Dr. Garcia Attending Physician: Stephanie Hernandez, History of Present Illness 85-year-old female presented to the emergency department secondary to palpitations and tachycardia. ECG confirms presence of atrial fibrillation with rapid ventricular response. Patient denies any associated chest discomfort or shortness of breath. Denies syncope or near syncope. Treated with IV Lopressor in ER with spontaneous conversion to normal sinus rhythm. She has remained in sinus rhythm overnight with periods of sinus bradycardia with heart rate as low as 40 bpm recorded. Titration of beta-jolene limited in the past due to significant sinus bradycardia. Chronically anticoagulated with Eliquis. Currently she is resting comfortably. Notes some discomfort in her esophagus. There is concern regarding possible enteritis per CT. Gastroenterology consultation is pending. Otherwise asymptomatic from a cardiovascular standpoint. Allergies Allergy/AdvReac Type Severity Reaction Status Date / Time sulfamethoxazole Allergy Intermediate RASH Verified 07/20/20 02:35 trimethoprim Allergy Intermediate RASH Verified 07/20/20 02:35 propoxyphene Allergy Mild Unknown Verified 07/20/20 02:35 erythromycin base Allergy Unknown Vomiting Verified 07/20/20 02:35 metronidazole Allergy Unknown Unknown Verified 07/20/20 02:35 Penicillins Allergy Unknown Rash Verified 07/20/20 02:35 ciprofloxacin [From Cipro] Allergy Unknown Verified 07/20/20 02:35 enalapril AdvReac Intermediate tightness Verified 07/20/20 02:35 in ankles fentanyl AdvReac Intermediate SEVERE Verified 07/20/20 02:35 N&V;DIZZY clindamycin AdvReac Mild Nausea Verified 07/20/20 02:35 codeine AdvReac Mild SICK TO Verified 07/20/20 02:35 STOMACH Quinolones AdvReac Mild N&V Verified 07/20/20 02:35 tramadol [From Ultram] AdvReac Unknown Vomiting Verified 07/20/20 02:35 topiramate [From Topamax] AdvReac "FINGERS Verified 07/20/20 02:35 NUMB" Home Medications Home Medications Medication Instructions Recorded Confirmed Type Prolia 1 dose SUBCUT .TWICE A YEAR 01/14/19 07/20/20 History sumatriptan succinate 100 mg PO DAILY PRN 01/14/19 07/20/20 History cholecalciferol (vitamin D3) 2,000 unit PO DAILY 08/29/19 07/20/20 History [Vitamin D3] terazosin 1 mg PO HS 08/29/19 07/20/20 History Eliquis 2.5 mg PO BID 02/02/20 07/20/20 History gabapentin 100 mg PO TID 02/02/20 07/20/20 History omeprazole 20 mg PO DAILYBB 02/02/20 07/20/20 History metoprolol tartrate 12.5 mg PO BID #0 tab 03/04/20 07/20/20 Rx clotrimazole-betamethasone 1 appln TOP .COMPLEX PRN 06/06/20 07/20/20 History dicyclomine 10 mg PO QID PRN 06/06/20 07/20/20 History bopcvajy-qzj-shhw-FA-lutein 1 tab PO DAILY 06/22/20 07/20/20 History [Centrum Silver Women] ropinirole [Requip] 0.25 mg PO HS 07/20/20 07/20/20 History Patient History Medical History Atrial fibrillation Paroxysmal. Appropriately anticoagulated on Eliquis. Asymptomatic. Diverticulosis Gastroparesis GERD (gastroesophageal reflux disease) History of skin cancer Hyperlipidemia Hypertension Migraines On anticoagulant therapy Sensorineural hearing loss (SNHL) of both ears SNHL (sensorineural hearing loss) Thoracic aortic aneurysm Mildly dilated on echo 02/2019 per cardiology, but not seen on 08/2019 echo at [facility]. Surgical History History of breast biopsy History of cataract surgery History of cholecystectomy 02/02/2020; [facility]; MAC #3, ETT 7.0. No complications. History of cystoscopy W/ STONE EXTRACTION History of ERCP with stone removal and stent placement 02/28 [place] History of lumbar surgery History of Mohs micrographic surgery for skin cancer History of tooth extraction Status post trigger finger release Family History Other Coronary heart disease No family history of adverse response to anesthesia Social History Smoking Status: Never smoker Second Hand Exposure: No; Do You Dip or Chew Tobacco: No; Hx Alcohol Use: No Hx Substance Use: No Preferred Language: Canadian Communication Ability: Effective Babcock Tester Required: No Beliefs That Will Affect Care: None marital status: / Current Living Situation: Alone Feels Safe at Home: Yes Safety Concerns: Feels Safe At This Time Review of Systems Review of Systems: All systems reviewed & are unremarkable except as noted in HPI & below Physical Exam Constitutional: WD/WN, vitals as above well developed; no acute distress Respiratory: normal respiratory effort, lungs clear to auscultation Auscu ltation: no crackles, no rales, no rhonchi and no wheezes Cardiovascular: Rate/Rhythm: regular rate and + bradycardic Heart Sounds: normal S1 and normal S2; no murmur Vessels: radial pulses present; no JVD and no carotid bruit Extremities: no edema Gastrointestinal (Abdomen): Inspection/Auscultation: abdomen normal to inspection and normal bowel sounds; abdomen not distended Percussion/Palpation: abdomen soft; abdomen nontender, no guarding and abdomen not rigid Skin: no rashes, warm and dry Neurologic: CN's II-XI intact bilaterally and moves all extremities; no focal motor deficits Speech / Cognition: normal speech Motor/Sensory: no tremor Psychiatric: A+Ox3, euthymic affect Results & Data ([facility]) Vital Signs (Past 12 Hours) Vital Signs Temp Pulse Pulse Resp BP BP Pulse Ox 07/20/20 09:40 54 L 07/20/20 08:14 36.5 C 60 18 148/70 H 95 07/20/20 06:08 36.7 C 55 L 16 159/74 H 97 07/20/20 06:07 07/20/20 05:30 54 L 13 107/60 94 07/20/20 05:00 55 L 14 103/54 L 94 07/20/20 04:31 58 L 19 120/70 95 07/20/20 03:30 114 H 12 101/75 94 07/20/20 03:00 139 H 17 110/93 94 07/20/20 02:44 128 H 18 123/96 94 07/20/20 02:30 121 H 17 122/71 93 07/20/20 02:25 134 H 15 106/81 97 07/20/20 02:20 125 H 15 100/88 96 07/20/20 02:15 108 H 17 123/93 94 07/20/20 02:08 123 H 133/95 07/20/20 01:59 130 H 118/93 07/20/20 01:56 132 H 118/93 07/20/20 01:52 126 H 142/108 H 07/20/20 01:18 36.4 C L 123 H 20 146/88 H 97 Pulse Ox 07/20/20 09:40 07/20/20 08:14 07/20/20 06:08 07/20/20 06:07 97 07/20/20 05:30 07/20/20 05:00 07/20/20 04:31 07/20/20 03:30 07/20/20 03:00 07/20/20 02:44 07/20/20 02:30 07/20/20 02:25 07/20/20 02:20 07/20/20 02:15 07/20/20 02:08 07/20/20 01:59 07/20/20 01:56 07/20/20 01:52 07/20/20 01:18
[2020-07-20] MEDS: PROMETHAZINE HCL 12.5 MG in SODIUM CHLORIDE 0.9% 50 ML IV PRN (12:26)
--- NOTE | 2020-07-20 14:28 | Gastrointestinal Consultation ---
Date of Consultation July 20, 2020 Assessment & Plan (1) Enteritis: (2) Abdominal pain, epigastric: Agree with Dr. Hernandez with increasing PPI therapy to twice daily at this time. I do not believe her symptoms are secondary to prior biliary disease. Continue supportive care No plans for EGD at this time, unless Cardiology requires it prior to Pacemaker placement. [facility] to resume care in the AM. History of Present Illness Reason for Consultation: Epigastric pain, prior ERCP Attending Physician: Stephanie Hernandez, History of Present Illness Alison Xiong presented to the ER last night with palpitations and arm pain. Upon arrival to the ER she was noted to have normal Troponins, however, she was noted to have A-fib with RVR. She also complained of severe abdominal pain in the epigastric area, which was similar to GERD symptoms previously. She stated that the pain was different than the pain she had when she had her gallbladder removed and underwent ERCP with stent placement. She last underwent an ERCP, in March, by Dr. Lazo with Stent removal and balloon sweep of the biliary duct wit hout difficulty. Upon arrival to the ER, her liver panel was normal. A CT scan of the abd/pelvis did show a non-specific enteritis. She was subsequently admitted with rate controlled with beta-jolene therapy, and was seen by Cardiology. At the time I saw the patient this morning she had received Morphine therapy, which completely controlled her epigastric pain. She also notes that she will be undergoing pacemaker placement for control of her A-fib. She denies fevers, chills, nausea, vomiting, diarrhea, hematemesis, melena or hematochezia. She states that she is feeling much better than when she came in to the ER. She states that she does have well controlled GERD, and only has breakthrough symptoms if she forgets her medication. Repeat liver panel this morning was again normal. She has no further complaints. Allergies Allergy/AdvReac Type Severity Reaction Status Date / Time sulfamethoxazole Allergy Intermediate RASH Verified 07/20/20 02:35 trimethoprim Allergy Intermediate RASH Verified 07/20/20 02:35 propoxyphene Allergy Mild Unknown Verified 07/20/20 02:35 erythromycin base Allergy Unknown Vomiting Verified 07/20/20 02:35 metronidazole Allergy Unknown Unknown Verified 07/20/20 02:35 Penicillins Allergy Unknown Rash Verified 07/20/20 02:35 ciprofloxacin [From Cipro] Allergy Unknown Verified 07/20/20 02:35 enalapril AdvReac Intermediate tightness Verified 07/20/20 02:35 in ankles fentanyl AdvReac Intermediate SEVERE Verified 07/20/20 02:35 N&V;DIZZY clindamycin AdvReac Mild Nausea Verified 07/20/20 02:35 codeine AdvReac Mild SICK TO Verified 07/20/20 02:35 STOMACH Quinolones AdvReac Mild N&V Verified 07/20/20 02:35 tramadol [From Ultram] AdvReac Unknown Vomiting Verified 07/20/20 02:35 topiramate [From Topamax] AdvReac "FINGERS Verified 07/20/20 02:35 NUMB" Home Medications Home Medications Medication Instructions Recorded Confirmed Type Prolia 1 dose SUBCUT .TWICE A YEAR 01/14/19 07/20/20 History sumatriptan succinate 100 mg PO DAILY PRN 01/14/19 07/20/20 History cholecalciferol (vitamin D3) 2,000 unit PO DAILY 08/29/19 07/20/20 History [Vitamin D3] terazosin 1 mg PO HS 08/29/19 07/20/20 History Eliquis 2.5 mg PO BID 02/02/20 07/20/20 History gabapentin 100 mg PO TID 02/02/20 07/20/20 History omeprazole 20 mg PO DAILYBB 02/02/20 07/20/20 History metoprolol tartrate 12.5 mg PO BID #0 tab 03/04/20 07/20/20 Rx clotrimazole-betamethasone 1 appln TOP .COMPLEX PRN 06/06/20 07/20/20 History dicyclomine 10 mg PO QID PRN 06/06/20 07/20/20 History pnddfqze-lgf-xtwc-FA-lutein 1 tab PO DAILY 06/22/20 07/20/20 History [Centrum Silver Women] ropinirole [Requip] 0.25 mg PO HS 07/20/20 07/20/20 History Patient History Medical History Atrial fibrillation Paroxysmal. Appropriately anticoagulated on Eliquis. Asymptomatic. Diverticulosis Gastroparesis GERD (gastroesophageal reflux disease) History of skin cancer Hyperlipidemia Hypertension Migraines On anticoagulant therapy Sensorineural hearing loss (SNHL) of both ears SNHL (sensorineural hearing loss) Thoracic aortic aneurysm Mildly dilated on echo 02/2019 per cardiology, but not seen on 08/2019 echo at [facility]. Surgical History History of breast biopsy History of cataract surgery History of cholecystectomy 02/02/2020; [facility]; MAC #3, ETT 7.0. No complications. History of cystoscopy W/ STONE EXTRACTION History of ERCP with stone removal and stent placement 02/28 [place] History of lumbar surgery History of Mohs micrographic surgery for skin cancer History of tooth extraction Status post trigger finger release Family History Other Coronary heart disease No family history of adverse response to anesthesia Social History Smoking Status: Never smoker Second Hand Exposure: No; Do You Dip or Chew Tobacco: No; Hx Alcohol Use: No Hx Substance Use: No Preferred Language: Cameroonian Communication Ability: Effective General Internal Medicine Doctor Required: No Beliefs That Will Affect Care: None marital status: / Current Living Situation: Alone Feels Safe at Home: Yes Safety Concerns: Feels Safe At This Time Review of Systems Review of Systems: All systems reviewed & are unremarkable except as noted in HPI & below Physical Exam Constitutional: WD/WN, vitals as above Eyes: PERRL, conjunctivae normal, anicteric sclerae ENMT: external ear and nose normal, oropharynx normal Neck: trachea midline, no thyromegaly Respiratory: normal respiratory effort, lungs clear to auscultation Cardiovascular: RRR, no murmur, no edema Gastrointestinal (Abdomen): normal bowel sounds, soft, nontender, no hepatosplenomegaly Skin: no rashes, warm and dry Psychiatric: A+Ox3, euthymic affect Results & Data ([facility]) Vital Signs (Past 12 Hours) Vital Signs Temp Pulse Pulse Resp BP BP Pulse Ox 07/20/20 12:22 36.5 C 62 20 154/66 H 96 07/20/20 09:40 54 L 07/20/20 08:14 36.5 C 60 18 148/70 H 95 07/20/20 06:08 36.7 C 55 L 16 159/74 H 97 07/20/20 06:07 07/20/20 05:30 54 L 13 107/60 94 07/20/20 05:00 55 L 14 103/54 L 94 07/20/20 04:31 58 L 19 120/70 95 07/20/20 03:30 114 H 12 101/75 94 07/20/20 03:00 139 H 17 110/93 94 07/20/20 02:44 128 H 18 123/96 94 07/20/20 02:30 121 H 17 122/71 93 Pulse Ox 07/20/20 12:22 07/20/20 09:40 07/20/20 08:14 07/20/20 06:08 07/20/20 06:07 97 07/20/20 05:30 07/20/20 05:00 07/20/20 04:31 07/20/20 03:30 07/20/20 03:00 07/20/20 02:44 07/20/20 02:30 PG Care Time/CCT Total # of Minutes Spent Total Time Spent with Patient: Total time spent is greater than 50% in coordination of care (as documented) at patient's floor/unit and/or counseling patient: Coding Level of Care Code 84134 Inpt Consult Level 3 Diagnoses Enteritis K52.9 Abdominal pain, epigastric R10.13
[2020-07-20] MEDS: OXYCODONE HCL IR 5 MG TAB (IMMEDIATE RELEASE) PO PRN (19:44)
[2020-07-20] MEDS: ROPINIROLE HCL 0.25 MG TABLET PO SCH (19:50)
[2020-07-20] MEDS: METOPROLOL TARTRATE 25 MG TAB PO SCH (19:52)
[2020-07-20] MEDS: TERAZOSIN HCL 1 MG CAP PO SCH (19:52)
[2020-07-21] MEDS ORDERED: SUMAtriptan succinate 25 MG TAB PO STA ×2 (05:28→07:50)
[2020-07-21] MEDS: PANTOprazole 40 MG TAB PO SCH (06:06)
[2020-07-21 07:05] LABS: Basophils # (auto) 0.03 K/uL (0-0.2); Basophils % (auto) 0.5 %; Eosinophils # (auto) 0.11 K/uL (0-0.5); Eosinophils % (auto) 1.7 %; Hematocrit (blood only) 40.7 % (37-47); Hemoglobin 13.4 g/dL (12.0-16.0); Immature Granulocytes # (auto) 0.02 K/uL (0.00-0.02); Immature Granulocytes % (auto) 0.3 %; Lymphocytes # (auto) 2.39 K/uL (1.2-3.4); Lymphocytes % (auto) 36.1 %; Mean Corpuscular Hemoglobin 30.5 pg (25-34); Mean Corpuscular Hgb Conc 32.9 g/dL (32-36); Mean Corpuscular Volume 92.5 fL (80-100); Mean Platelet Volume 9.8 fL (7.4-10.4); Monocytes # (auto) 0.33 K/uL (0.11-0.59); Neutrophils # (auto) 3.74 K/uL (1.4-6.5); Neutrophils % (auto) 56.4 %; Platelet Count 199 K/uL (130-400); RDW Coefficient of Variation 13.6 % (11.5-14.5); RDW Standard Deviation 46.3 fL (36.4-46.3); White Blood Count 6.62 K/uL (4.8-10.8)
[2020-07-21] MEDS: LACTATED RINGER'S 1,000 ML IV SCH (07:17)
[2020-07-21 07:43] LABS: BUN Creatinine Ratio 19.9 (10-20); Calcium 8.3 mg/dl (8.5-10.1); Est GFR (African American) 79.7; Est GFR (Non-African American) 68.7; Potassium 4.2 mmol/L (3.5-5.1)
[2020-07-21] MEDS: PROMETHAZINE HCL 12.5 MG in SODIUM CHLORIDE 0.9% 50 ML IV PRN (08:01)
[2020-07-21] MEDS: GABAPENTIN 100 MG CAP PO SCH ×3 (08:07→19:46)
[2020-07-21] MEDS: CEROVITE ADV FORMULA TAB PO SCH (08:07)
[2020-07-21] MEDS: METOPROLOL TARTRATE 25 MG TAB PO SCH ×2 (08:59→19:44)
--- NOTE | 2020-07-21 10:07 | Cardiology Progress Note ---
Date of Service July 21, 2020 Assessment & Plan (1) Paroxysmal atrial fibrillation: (2) Tachy-michael syndrome: (3) Enteritis: Again, I discussed the risk versus benefit of pacemaker implantation. Patient agreeable. Instructed nursing to administer dose of a.m. beta-jolene. Plan titration of metoprolol to 25 mg twice daily post procedure. Restart Eliquis as per cheese packer recommendations post pacemaker implantation. Tentative plan for discharge in 24 to 48 hours. Admission and Anticipated Discharge Date Admission Date: July 20, 2020 Subjective Patient seen exam at the bedside. Sinus bradycardia recorded on telemetry overnight. No recurrent atrial fibrillation. A.m. dose of metoprolol held due to bradycardia. Previously noted stomach and esophageal discomfort has resolved. Patient offers no concerns/complaints currently. Eliquis on hold in anticipation of permanent pacemaker implantation. Review of Systems Review of Systems: All systems reviewed & are unremarkable except as noted in HPI & below Physical Exam Constitutional: WD/WN, vitals as above well developed; no acute distress Respiratory: normal respiratory effort, lungs clear to auscultation Auscultation: no crackles, no rales, no rhonchi and no wheezes Cardiovascular: Rate/Rhythm: regular rate and + bradycardic Heart Sounds: normal S1 and normal S2; no murmur Vessels: radial pulses present; no JVD and no carotid bruit Extremities: no edema Gastrointestinal (Abdomen): Inspection/Auscultation: abdomen normal to inspection and normal bowel sounds; abdomen not distended Percussion/Palpation: abdomen soft; abdomen nontender, no guarding and abdomen not rigid Skin: no rashes, warm and dry Neurologic: CN's II-XI intact bilaterally and moves all extremities; no focal motor deficits Speech / Cognition: normal speech Motor/Sensory: no tremor Psychiatric: A+Ox3, euthymic affect Results & Data ([facility]) Vital Signs (Past 12 Hours) Vital Signs Temp Pulse Pulse Resp BP BP Pulse Ox 07/21/20 08:22 36.9 C 56 L 16 165/82 H 95 07/21/20 04:00 36.6 C 56 L 18 146/78 H 96 07/21/20 00:00 36.8 C 49 L 18 130/71 96 07/20/20 23:42 54 L
[2020-07-21] MEDS ORDERED: VANCOMYCIN CONSULT ACTIVE PRN (14:02)
[2020-07-21] MEDS ORDERED: VANCOMYCIN HCL 1,000 MG/270 ML BAG IV SCH (14:15)
--- NOTE | 2020-07-21 15:18 | History & Physical Bridge Note ---
Date of Service July 21, 2020 History & Physical Bridge Note I have examined the patient, reviewed the History & Physical and in the interval since the performance of the History & Physical I have noted the following changes of clinical significance: pt for ppm due to TBS; consents signed
--- NOTE | 2020-07-21 15:19 | Pre Anesthesia Assessment ---
Date of Service July 21, 2020 Pre Sedation Assessment Vital Signs Temp Pulse Pulse Resp BP BP Pulse Ox 07/21/20 12:06 36.4 C L 51 L 20 149/80 H 94 07/21/20 08:22 36.9 C 56 L 16 165/82 H 95 07/21/20 07:45 64 07/21/20 04:00 36.6 C 56 L 18 146/78 H 96 07/21/20 00:00 36.8 C 49 L 18 130/71 96 07/20/20 23:42 54 L 07/20/20 19:53 36.6 C 51 L 18 165/82 H 95 07/20/20 16:01 36.7 C 87 20 153/71 H 95 07/20/20 16:00 57 L Cardiovascular + bradycardic Respiratory normal respiratory effort, lungs clear to auscultation Pre-Sedation Airway Assessment Smoking Status: Never smoker Hx Sleep Apnea: No Short, Thick Neck: No Thyromental Distance: > or= 3.5 Finger Breadths Oral Cavity: + WNL Mallampati Class: II ASA: ASA3 NPO Status Date of Last Intake of Fluids: 07/21/20 Time of Last Intake of Fluids: 07:00 Last Oral Intake of Fluids Comment: sips with pills Procedure Planning Contraindications for Sedation: none Current Medications Reviewed: Yes Notes The planned sedation has been discussed with the patient. Informed Consent was obtained. I have identified the patient, determined the appropriateness of sedation and have assessed the patient immediately prior to the procedure. All medicine(s) and interventions are by my order.
[2020-07-21] MEDS ORDERED: LIDOCAINE HCL 1% 20 ML VIAL ONE (15:25)
[2020-07-21] MEDS ORDERED: BUPIVACAINE 0.25% 30 ML VIAL ONE (15:25)
[2020-07-21] MEDS ORDERED: BACITRACIN INJ 50,000 UNIT VIAL ONE (15:26)
--- NOTE | 2020-07-21 15:27 | Hospitalist Progress Note ---
Date of Service July 21, 2020 Assessment & Plan (1) Enteritis: appears to have resolved. She is eating without pain in her epigastric region this morning. No pain to palpation in this area and she denies any further diarrhea. Likely just a viral enteritis. Cont supportive care as ne eded but this appears to have resolved. (2) Atrial fibrillation with RVR: She has remained in sinus rhythm overnight and is awaiting pacemaker placement this morning. Cont Lopressor 12.5 BID per home regimen for now with hold parameters. Cont telemetry monitoring. (3) Tachy-michael syndrome: Eliquis on hold. Scheduled for pacer today. (4) Sensorineural hearing loss (SNHL) of both ears: new hearing aids in place. (5) GERD (gastroesophageal reflux disease): Increased her PPI to BID and she denied any issues with this last night. Cont this at discharge for the time being. (6) Gastroparesis: Eat small frequent meals. (7) DVT prophylaxis: SCDs-Eliquis on hold Full Code Dispo-cont PCU monitoring. Likely to home in am. Stephanie Hernandez DO [facility] Hospitalist Admission and Anticipated Discharge Date Admission Date: July 20, 2020 Subjective Feels well today was ambulating to the bathroom to wash up when I entered. denies diarrhea, reports no issues with heartburn overnight Denies pain, SOB, chest pain, fevers or chills. Review of Systems Review of Systems: All systems reviewed & are unremarkable except as noted in Subjective Physical Exam Physical Exam: CONSTITUTIONAL: WNWD, vitals as above, generally well- appearing EYES: normal conjunctivae, no scleral icterus ENT: external ear and nose normal, MMM RESPIRATORY: clear to auscultation bilaterally, no crackles, rales or wheezes, normal respiratory effort CARDIOVASCULAR: regular rate and rhythm, S1 and 2 heard without murmurs, gallops or rubs, no JVD, no peripheral edema, MMM GASTROINTESTINAL: soft, nontender, nondistended MUSCULOSKELETAL: strength 5/5 throughout, head is normocephalic and atraumatic SKIN: warm and dry NEUROLOGIC: CN 2-12 grossly intact, no sensory deficit, normal cognition, normal speech, no gross focal deficit. PSYCHIATRIC: alert cooperative and oriented to person, place and time. Results & Data Results & Data ([facility]) Vital Signs (Past 12 Hours) Vital Signs Temp Pulse Pulse Resp BP BP Pulse Ox 07/21/20 12:06 36.4 C L 51 L 20 149/80 H 94 07/21/20 08:22 36.9 C 56 L 16 165/82 H 95 07/21/20 07:45 64 07/21/20 04:00 36.6 C 56 L 18 146/78 H 96 Laboratory Results Short CBC 07/21/20 Range/Units 06:19 WBC 6.62 (4.8-10.8) K/uL Hgb 13.4 (12.0-16.0) g/dL Hct 40.7 (37-47) % Plt Count 199 (130-400) K/uL BMP 07/21/20 06:19 Sodium 140 Potassium 4.2 Chloride 106 Carbon Dioxide 28 BUN 16 Creatinine 0.79 D Glucose 84 Calcium 8.3 L D Medications Administered Current Inpatient Medications Acetaminophen (Acetaminophen 325 Mg Tab) 650 mg PO Q4H PRN PRN Reason: Pain or Fever Stop: 08/19/20 06:06 Last Admin: 07/20/20 06:37 Dose: 650 mg Documented by: Al Hydrox/Mg Hydrox/Simethicone 72 ml/ Lidocaine HCl 24 ml/ BARCODE IDENTIFIER 1 ea 0 ml PO Q8H PRN PRN Reason: heartburn Stop: 08/19/20 09:50 Last Admin: 07/20/20 19:01 Dose: 24 ml Documented by: Gabapentin (Gabapentin 100 Mg Cap) 100 mg PO TID [facility] Stop: 08/19/20 08:59 Last Admin: 07/21/20 15:03 Dose: Not Given Documented by: Promethazine HCl 12.5 mg/ (Sodium Chloride) 50.5 mls @ 202 mls/hr IV Q6H PRN PRN Reason: Nausea And Vomiting Stop: 08/19/20 06:06 Last Infusion: 07/21/20 09:11 Dose: Infused Documented by: Lorazepam (Ativan) 0.25 mg in 0.5 mls @ 0.5 mls/min IV Q4H PRN PRN Reason: Anxiety Stop: 08/19/20 06:06 Lactated Ringer's (Lr) 1,000 mls @ 80 mls/hr IV .[id number] [facility] Stop: 08/19/20 06:44 Last Infusion: 07/21/20 14:49 Dose: 0 mls/hr Documented by: Vancomycin HCl (Vancomycin Hcl) 1,000 mg in 270 mls @ 125 mls/hr IV PREOP [facility]; Protocol Stop: 07/21/20 20:00 Last Admin: 07/21/20 14:48 Dose: 125 mls/hr Documented by: Metoprolol Tartrate (Metoprolol Tartrate 25 Mg Tab) 12.5 mg PO BID [facility] Stop: 08/19/20 20:59 Last Admin: 07/21/20 08:59 Dose: 12.5 mg Documented by: Multivitamins/Minerals (Cerovite Adv Formula Tab) 1 tab PO DAILY [facility] Stop: 08/19/20 08:59 Last Admin: 07/21/20 08:07 Dose: 1 tab Documented by: Nitroglycerin (Nitroglycerin Sl 0.4 Mg/Tab Tab) 0.4 mg SL UD PRN PRN Reason: Chest Pain Stop: 08/19/20 06:06 Oxycodone HCl (Oxycodone Hcl Ir 5 Mg Tab (Immediate Release)) 5 mg PO Q4H PRN PRN Reason: Pain Stop: 08/03/20 06:06 Last Admin: 07/20/20 19:44 Dose: 5 mg Documented by: Pantoprazole Sodium (Pantoprazole 40 Mg Tab) 40 mg PO DAILYBB [facility] Stop: 08/20/20 06:29 Last Admin: 07/21/20 06:06 Dose: 40 mg Documented by: Ropinirole HCl (Ropinirole Hcl 0.25 Mg Tablet) 0.25 mg PO HS [facility] Stop: 08/19/20 20:59 Last Admin: 07/20/20 19:50 Dose: 0.25 mg Documented by: Terazosin HCl (Terazosin Hcl 1 Mg Cap) 1 mg PO HS [facility] Stop: 08/19/20 20:59 Last Admin: 07/20/20 19:52 Dose: 1 mg Documented by:
[2020-07-21] MEDS ORDERED: MIDAZOLAM HCL 5 MG/ML 1 ML VIAL ONE (15:31)
[2020-07-21] MEDS ORDERED: fentaNYL citrate 100 MCG/2 ML VIAL ONE (15:38)
[2020-07-21] MEDS ORDERED: ONDANSETRON INJ 2 MG/ML 2 ML VIAL ONE (15:38)
[2020-07-21] MEDS ORDERED: NURSING DECISION MEDICATION ONE (16:32)
--- NOTE | 2020-07-21 16:32 | Post Anesthesia Assessment ---
Date of Service July 21, 2020 Post Sedation Assessment Vital Signs Temp Pulse Pulse Resp BP BP Pulse Ox 07/21/20 15:32 47 L 07/21/20 12:06 36.4 C L 51 L 20 149/80 H 94 07/21/20 08:22 36.9 C 56 L 16 165/82 H 95 07/21/20 07:45 64 07/21/20 04:00 36.6 C 56 L 18 146/78 H 96 07/21/20 00:00 36.8 C 49 L 18 130/71 96 07/20/20 23:42 54 L 07/20/20 19:53 36.6 C 51 L 18 165/82 H 95 Recovery Score Activity: Moves 4 extremities Respiration: Deep Breath/Cough Circulation: +/-20% PreAnes Value Consciousness: Fully Awake Oxygen Saturation: > 92% On Room Air Discharge Sedation Level of Care: Fast Track Phase II Post Sedation Plan On clinical assessment, the patient appears to have tolerated the sedation without complications. Patient is recovering as anticipated. Patient will continue to be monitored by nursing and may be discharged when sedation discharge criteria are met per below protocol. Upon Completions of procedure up to 15 minutes continue every 5 minute vital signs and the P.A.R. score; then discharge to a Phase I or Fast Track to Phase II per the following guidelines: * Discharge Patient to appropriate Phase II area if PAR is 8 or greater or return to pre- procedure baseline. The post - procedure orders will be as directed. * If PAR score is less than 8 or not return to pre-procedure baseline then patient will follow Phase I monitoring till PAR is reached for Phase II. The Phase I may be done in procedure room or may call to secure a Phase I area. * If naloxone or flumazenil are used for reversal, hold in Phase I for continued monitoring from when last reversal dose was given for a minimum of 60 minutes or longer pending the nurse and/or physician discretion of patient condition before discharge to Phase II. Please call the Sedation Physician to re-evaluate and complete post-note for discharge to Phase II area. Do NOT discharge from procedure sedation or Phase 1 until post- sedation evaluation note is complete by procedure /sedation MD Sedation Discharge Instructions to be given to the patient at discharge to home.
--- NOTE | 2020-07-21 16:32 | Operative Report ---
Post Operative Report Pre & Post Diagnosis tbs Operation Date: 07/21/20 10:00 <No data on this case meets the specified criteria> I identified the patient and participated in the time-out.: Yes Procedure Operation Date: 07/21/20 10:00 Actual Procedures p Pacer with A/V Leads (Dual) - Kimberlee Fernandez DO Surgeon Kimberlee Fernadnez, Bed Laster none Estimated Blood Loss 25 Findings Consistent with Post-Op Diagnosis Specimens none Description of Procedure see official report I attest to the content of the Intraoperative Record and any orders documented therein. Any exceptions are noted below.
[2020-07-21] MEDS ORDERED: Nursing to Pharmacy Communication SCH (16:45)
[2020-07-21] MEDS: OXYCODONE HCL IR 5 MG TAB (IMMEDIATE RELEASE) PO PRN (18:39)
[2020-07-21] MEDS: TERAZOSIN HCL 1 MG CAP PO SCH (19:44)
[2020-07-21] MEDS: ROPINIROLE HCL 0.25 MG TABLET PO SCH (19:46)
[2020-07-22] MEDS: PANTOprazole 40 MG TAB PO SCH (03:15)
[2020-07-22] MEDS: OXYCODONE HCL IR 5 MG TAB (IMMEDIATE RELEASE) PO PRN (03:15)
[2020-07-22] MEDS ORDERED: METOPROLOL TARTRATE 25 MG TAB PO SCH (09:00)
[2020-07-22] MEDS: GABAPENTIN 100 MG CAP PO SCH (09:06)
[2020-07-22] MEDS: CEROVITE ADV FORMULA TAB PO SCH (09:06)
--- NOTE | 2020-07-22 09:30 | XRay Report ---
XR chest 2V PA/lateral CLINICAL HISTORY: post ppm COMPARISON STUDY: Chest radiograph July 20, 2020. FINDINGS: There is no pneumothorax following placement of a dual lead left subclavian pacemaker. Lead tips project over the right atrial appendage and right ventricle. There is moderate cardiomegaly wit hout evidence for pulmonary edema. There is no consolidation. Patient is mildly rotated. IMPRESSION: No pneumothorax following placement of a dual-lead left subclavian pacemaker. ACT 112: Negative or not required by law. Electronically signed by: Jaden Orozco M.D. 07/22/2020 9:29 AM
--- NOTE | 2020-07-22 11:20 | Discharge Summary ---
Date of Service July 22, 2020 Admission HPI Per Admitting Provider History obtained from patient and records. Medical history significant for A. fib (borderline tachybradycardia syndrome as per records) on Eliquis, hypertension, hyperlipidemia, Raynaud's phenomenon as per records, GERD, gastroparesis as per records, urolithiasis, diverticulosis as per records. 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 Recent ER visit last month for palpitations, rapid AVR rapid A. fib. Conversion to NSR post Cardizem administration. On outpatient cardiology visit a week after ER visit, 7-day ZIO patch monitor recommended to evaluate for asymptomatic episodes of A. fib or any significant bradycardic episodes given history of borderline sick sinus syndrome. 4 days ago patient noted palpitations, cardiac rate 140s. Some stress regarding ill fitting hearing aids. Extra metoprolol doses as per custodial foreman recommendations low with heart rate of 60. Outpatient follow-up visit with cardiology scheduled for 07/21/20. Plan patient was getting ready for bed when she experienced epigastric discomfort heartburn-like without actual chest pain or shortness of breath. No black/bloody stools. Patient did not feel well. SBP at home noted to be 160s, cardiac rate 140s. Patient consulted ER for persistent tachycardia. At the ER, cardiac rate 130s at the highest. IV Lopressor doses given at the ER. Patient subsequently converted to NSR at the ER. Cardiac rate currently 50 to 60s. 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 Admission Exam Per Admitting Provider GENERAL: Comfortable, looks younger for stated age, no respiratory distress SKIN: Normal color, warm HEENT: [place] palpebral conjunctivae, no ptosis, dry buccal mucosa NECK : Supple, no tenderness CHEST : CTA, no tenderness HEART : Bradycardic , no obvious murmurs ABDOMEN: Some distention, minimal epigastric tenderness EXTREMITIES : No LE swelling/tenderness, no other conspicuous deformities noted NEUROLOGIC : Coherent, no facial asymmetry, no other gross focality Principal Diagnosis Enteritis-resolved Atrial fibrillation with RVR Tachybradycardia syndrome s/p pacemaker placement Discharge Exam CONSTITUTIONAL: WNWD, vitals as above, generally well-appearing EYES: normal conjunctivae, no scleral icterus ENT: external ear and nose normal, MMM RESPIRATORY: clear to auscultation bilaterally, no crackles, rales or wheezes, normal respiratory effort CARDIOVASCULAR: regular rate and rhythm, S1 and 2 heard without murmurs, gallops or rubs, no JVD, no peripheral edema, MMM GASTROINTESTINAL: soft, nontender, nondistended MUSCULOSKELETAL: strength 5/5 throughout, head is normocephalic and atraumatic SKIN: warm and dry NEUROLOGIC: CN 2-12 grossly intact, no sensory deficit, normal cognition, normal speech, no gross focal deficit. PSYCHIATRIC: alert cooperative and oriented to person, place and time. Discharge Data Allergies Allergy/AdvReac Type Severity Reaction Status Date / Time sulfamethoxazole Allergy Intermediate RASH Verified 07/20/20 02:35 trimethoprim Allergy Intermediate RASH Verified 07/20/20 02:35 propoxyphene Allergy Mild Unknown Verified 07/20/20 02:35 erythromycin base Allergy Unknown Vomiting Verified 07/20/20 02:35 metronidazole Allergy Unknown Unknown Verified 07/20/20 02:35 Penicillins Allergy Unknown Rash Verified 07/20/20 02:35 ciprofloxacin [From Cipro] Allergy Unknown Verified 07/20/20 02:35 enalapril AdvReac Intermediate tightness Verified 07/20/20 02:35 in ankles fentanyl AdvReac Intermediate SEVERE Verified 07/20/20 02:35 N&V;DIZZY clindamycin AdvReac Mild Nausea Verified 07/20/20 02:35 codeine AdvReac Mild SICK TO Verified 07/20/20 02:35 STOMACH Quinolones AdvReac Mild N&V Verified 07/20/20 02:35 tramadol [From Ultram] AdvReac Unknown Vomiting Verified 07/20/20 02:35 topiramate [From Topamax] AdvReac "FINGERS Verified 07/20/20 02:35 NUMB" Consultations 07/20/20 03:32 ED Decision to Admit Stat 07/20/20 06:07 Consult Cardiology Routine 07/20/20 09:04 Consult Gastroenterology Routine Procedures Performed Operation Date: 07/21/20 10:00 Actual Procedures p Pacer with A/V Leads (Dual) - Kimberlee Fernandez DO s Venogram, Unilateral - Kimberlee Fernandez DO Ordered Studies CT OF THE ABDOMEN AND PELVIS WITH CONTRAST CLINICAL HISTORY: Abdominal pain. COMPARISON STUDY: CT of the abdomen and pelvis June 07, 2020. FINDINGS: Scattered tree-in-bud nodules within the lower lungs are noted. A 1 cm hypodense splenic lesion is unchanged. This is likely benign. The liver, adrenal glands and pancreas are unremarkable. There is no biliary ductal dilatation status post cholecystectomy. There is a diverticulum of the second portion the duodenum. There is no peripancreatic infiltration. Water attenuation bilateral renal lesions reflect cysts. There is no hydronephrosis. The caliber and wall thickness of small and large bowel are normal. The appendix is normal. There is sigmoid diverticulosis without evidence for acute diverticulitis. Pericolonic inflammation and wall thickening shown on prior CT has resolved. There is no abscess. No suspicious osseous lesions are noted. A few prominent fluid-filled loops of small bowel are noted. There is no transition point. IMPRESSION: 1. A few prominent fluid-filled loops of small bowel. Findings likely within normal limits or may reflect an enteritis. A low-grade partial small bowel bowel obstruction is considered less likely. 2. Colonic diverticulosis without evidence for acute diverticulitis. Electronically signed by: Jaden Orozco M.D. 07/20/2020 7:32 AM --------- XR chest 2V PA/lateral CLINICAL HISTORY: post ppm COMPARISON STUDY: Chest radiograph July 20, 2020. FINDINGS: There is no pneumothorax following placement of a dual lead left subclavian pacemaker. Lead tips project over the right atrial appendage and right ventricle. There is moderate cardiomegaly without evidence for pulmonary edema. There is no consolidation. Patient is mildly rotated. IMPRESSION: No pneumothorax following placement of a dual-lead left subclavian pacemaker. Electronically signed by: Jaden Orozco M.D. 07/22/2020 9:29 AM Hospital Course (1) Enteritis: (2) Atrial fibrillation with RVR: (3) Tachy-michael syndrome: The patient is an 85-year-old female who presented to the hospital with atrial fibrillation with RVR. She has a history of paroxysmal atrial fibrillation and was recently put on a event monitor by cardiology with episodes of bradycardia that were noted. She converted from A. fib to normal sinus rhythm while in the ER and was placed on telemetry on the hospitalist service. Cardiology was consulted. Pacemaker placement was recommended for tachycardia- bradycardia syndrome. An EP consultation was requested and the pacemaker was placed by Dr. Kimberlee Fernandez on 07/21/2020 without complications. Her metoprolol was increased to 25 twice daily post procedure. Additionally, early in the hospitalization she developed acute abdominal pain that was in the epigastric region. This improved with morphine and she had no evidence of pancreatitis. A GI consult was requested as she had a history in February 2020 of a difficult ERCP with biliary stent placed and then removed early because of problems. She also reported an outpatient episode of diverticulitis last month. This appeared to be nothing more than a simple community-acquired enteritis and GI agreed with this. Her PPI was increased to twice daily and she had a complete resolution of symptoms including intermittent diarrhea while in the hospital prior to discharge. She will continue her increased PPI and follow-up with her primary care doctor. At time of discharge she was mentating and ambulating at baseline and tolerating p.o. She was hemodynamically stable and afebrile and oxygenating well on room air. She was sent home in stable condition with close primary care follow-up and close follow-up with the pacer clinic for a postoperative check in one week. Total Time Total Time Spent Total Time Spent (In Minutes): 60 Total Time Includes: Examination of the Patient, Discharge Planning, Medication Reconciliation and Communication With Other Providers Discharge Plan Discharge Items Patient Disposition: Home - Self-Care Reason For Visit: AF Discharge Diagnosis: Enteritis-resolved Atrial fibrillation with RVR Tachybradycardia syndrome s/p pacemaker placement Condition on Discharge: Good Activity: As commented below Activity Comment: do not lift the left elbow over the left arm for 1 month Lifting: No more than 10 pounds Lifting Comment: do not lift more than 10 pounds with the left arm for 2 weeks Bathing: Keep incision dry Bathing Comment: keep dressing on and dry until your wound check next week Non-emergency contact: Primary Care Provider and Donor Recruiter Call non-emergency contact if: you have any medication questions, your symptoms worsen, your pain is not controlled, you have a fever, your wound has increased redness, your wound has increased drainage and your wound pain has increased Follow-up/Referrals: Rufino Sorenson DO [Primary Care Provider] - 07/28/20 3:00 pm Diet: Regular Addtl Attending Provider Instructions: device and wound check at [facility] at 08/01/2020 at 9:15am And general cardiology f/u on 08/01 at 10:45am in [facility] Try to wear the surgical bra or a sports bra for the next 2 weeks to help with the healing process If you notice any swelling at the device area call [facility] immediately Addtl Retail Pharmacy Merchandiser Provider Instructions: Please take all medications as instructed on discharge list below. Please follow all postoperative instructions as above. Please follow-up with pacemaker clinic in [facility] in 1 week's time. It is recommended a follow-up with your primary care provider at the Jagdeep time above so he can look at your postoperative site wound, discuss any persistent issues with enteritis and your increased omeprazole dose, and ensure you are still doing well after discharge. It was a pleasure taking care of you! Please call if you have any questions or problems. You can reach a [facility] hospitalist on duty at [facility] 24 hours a day by calling [phone]. Take care of yourself. Stephanie Hernandez DO [facility] Hospitalist Pending Studies at Discharge: No Stand-Alone Forms: My [facility] Medications and DC Order Prescriptions: New metoprolol tartrate 25 mg Tablet 25 mg PO BID Qty: 60 RF: 1 oxycodone 5 mg Tablet 5 mg PO Q4H PRN (Reason: severe post operative pain) Qty: 10 RF: 0 omeprazole 40 mg capsule,delayed release(DR/EC) 40 mg PO DAILY Qty: 30 RF: 2 Continued sumatriptan succinate 100 mg tablet 100 mg PO DAILY PRN (Reason: Migraine Headache) RF: 0 Prolia 60 mg/mL Syringe 1 dose SUBCUT .TWICE A YEAR RF: 0 terazosin 1 mg capsule 1 mg PO HS RF: 0 cholecalciferol (vitamin D3) [Vitamin D3] 2,000 unit Tablet 2,000 unit PO DAILY RF: 0 Eliquis 2.5 mg Tablet 2.5 mg PO BID RF: 0 gabapentin 100 mg Capsule 100 mg PO TID RF: 0 dicyclomine 10 mg capsule 10 mg PO QID PRN (Reason: ABD PAIN) RF: 0 clotrimazole-betamethasone 1-0.05 % cream 1 appln TOP .COMPLEX PRN (Reason: Skin Irritation) RF: 0 ropinirole [Requip] 0.25 mg Tablet 0.25 mg PO HS RF: 0 Centrum Silver Women 8 mg iron-400 mcg-300 mcg Tablet 1 tab PO DAILY RF: 0 Discontinued omeprazole 20 mg Capsule,Delayed Release(Dr/Ec) 20 mg PO DAILYBB RF: 0 metoprolol tartrate 25 mg Tablet 12.5 mg PO BID Qty: 0 RF: 0 Discharge Orders: Discharge Order (Routine); Ordered 07/22/20 Ordered By: Stephanie Kang/Other Patient Handouts: Pacemakers, Living with a Pacemaker Admission Data Admit Date/Time: 07/20/20 10:00 Attending Provider: Stephanie Hernandez Admit Provider: Modesto Smalls Primary Care Provider: Rufino Sorenson Other Providers: Modesto Smalls ; Miguel Pelletier ; Jaydon Boudreaux ; Niranjan Castañeda ; Edwin Pagan ; Bacilio Lopez ; Iraj Arevalo ; Tamra Rocha ; Kimberlee Fernandez ; Rogerio Bennett ; Hemal Nieves Other Interventions: Discharge Summary Assessment (RN) Last Done: 07/22/20 11:20
--- NOTE | 2020-07-22 11:59 | Cardiology Progress Note ---
Date of Service July 22, 2020 Assessment & Plan (1) Paroxysmal atrial fibrillation: (2) Tachy-michael syndrome: (3) Pacemaker: (4) Enteritis: Titrate metoprolol tartrate to 25 mg twice daily. Resume anticoagulation this evening. Continue other medications as previously ordered. Pacemaker wound check in 1 week. Outpatient cardiology follow-up in 2 weeks. All questions answered to patient satisfaction. All questions answered to patient's satisfaction. Cardiology will sign off. Please call with questions. Admission and Anticipated Discharge Date Admission Date: July 20, 2020 Subjective Patient seen and examined at the bedside. Denies palpitations or shortness of breath. Mild discomfort noted near pacemaker site. Has questions regarding activity restrictions. No lightheadedness or dizziness. Ana remains on hold. Offers no other concerns/complaints at this time. Review of Systems Review of Systems: All systems reviewed & are unremarkable except as noted in HPI & below Physical Exam Constitutional: WD/WN, vitals as above well developed; no acute distress Respiratory: normal respiratory effort, lungs clear to auscultation Auscultation: no crackles, no rales, no rhonchi and no wheezes Cardiovascular: Rate/Rhythm: regular rate and + bradycardic Heart Sounds: normal S1 and normal S2; no murmur Vessels: radial pulses present; no JVD and no carotid bruit Extremities: no edema Chest (Breasts): Chest: + pacemaker (Site clean, dry, intact. No erythema or drainage.) Gastrointestinal (Abdomen): Inspection/Auscultation: abdomen normal to inspection and normal bowel sounds; abdomen not distended Percussion/Palpation: abdomen soft; abdomen nontender, no guarding and abdomen not rigid Skin: no rashes, warm and dry Neurologic: CN's II-XI intact bilaterally and moves all extremities; no focal motor deficits Speech / Cognition: normal speech Motor/Sensory: no tremor Psychiatric: A+Ox3, euthymic affect Results & Data ([facility]) Vital Signs (Past 12 Hours) Vital Signs Temp Pulse Pulse Resp BP BP Pulse Ox 07/22/20 11:20 36.5 C 60 18 110/57 L 125/85 96 07/22/20 07:38 36.5 C 60 18 125/85 96 07/22/20 07:14 68 07/22/20 03:07 36.6 C 58 L 18 101/62 95 07/21/20 23:59 37.0 C 55 L 17 110/57 L 91
--- NOTE | 2020-07-22 15:10 | Electrocardiogram Report ---
Test Reason : Blood Pressure : / mmHG Vent. Rate : 067 BPM Atrial Rate : 067 BPM P-R Int : 228 ms QRS Dur : 088 ms QT Int : 438 ms P-R-T Axes : 076 -23 050 degrees QTc Int : 462 ms Atrial-paced rhythm with prolonged AV conduction with Premature atrial complexes Abnormal ECG When compared with ECG of 20-JUL-2020 08:50, Electronic atrial pacemaker has replaced Sinus rhythm Confirmed by Tuan Bee ([id number]) on 07/22/2020 3:10:18 PM Referred By: REFERRED SELF Confirmed By:Tuan Bee
--- NOTE | 2020-07-22 22:48 | Operative Report (OR) ---
DATE OF OPERATION: 07/21/2020 PREOPERATIVE DIAGNOSIS: Tachybrady syndrome. POSTOPERATIVE DIAGNOSIS: Tachybrady syndrome. PROCEDURE: Dual chamber rate responsive permanent pacemaker under fluoroscopic guidance. SURGEON: Kimberlee Fernandez DO. ASSISTANTS: None. ANESTHESIA: Monitored conscious sedation administered under my supervision by Katherine Earl. Start time 1534, end time 1629, a total of 4 mg of Versed, 75 mcg of fentanyl. INTRAVENOUS FLUIDS: 28 mL. ANTIBIOTICS: 1 gram of Ancef. CONTRAST: 10 mL. INDICATIONS: This is an 85-year-old female with a past medical history for paroxysmal atrial fibrillation, hypertension, hyperlipidemia, hearing loss, mild thoracic aortic aneurysm, gastroparesis, diverticulosis, history of skin cancer, and GERD. Due to her paroxysmal atrial fibrillation, she is on Eliquis and she was admitted to [facility] secondary to atrial fibrillation. She has evidence of tachybrady syndrome, so she was recommended pacemaker. CONSENT: Consent was obtained prior to the patient going into electrophysiology lab. The patient was informed of the risks, benefits and alternative procedure. Risks include but not limited to sudden cardiac , cardiac arrhythmias, cerebrovascular accident, myocardial infarction, injury to the blood vessels, chamber of the heart, lungs, bleeding and infection. The patient understood these risks and agreed with procedure as planned. Informed consent was obtained. DESCRIPTION OF THE PROCEDURE: The patient was brought into electrophysiology lab in fasting state. She was connected to continuous school lunch monitor. Timeout was performed to ensure patient identity and procedure correctly. She was prepped and draped over the left infraclavicular space in normal surgical standard fashion. Monitored conscious sedation was given throughout the procedure for the patient's comfort level. [place] precautions obtained throughout the procedure. 10 mL of 1% lidocaine, bupivacaine mixture were given in the left deltopectoral groove. Incision was made in the left deltopectoral groove. Blunt dissection was performed to identify cephalic vein; however, none could be identified, so peripheral venogram using 10 mL of IV contrast was performed to identify the axillary vein. Venous axillary access was obtained with a needle stick without any problems. Guidewire was inserted through the needle without any problems. Then an 8-Georgian safe sheath was advanced over the guidewire without any resistance. Dilator was removed and a second guidewire was inserted through the 8-Georgian sheath to allow for retained venous access. Sheath was flushed, dilator reinserted over it and it was reinserted along the guidewires. Guidewire and dilator removed and the right ventricular lead was advanced into right ventricular under fluoroscopic guidance, positioned in ventricular apex. There was adequate pacing and sensing thresholds and no diaphragmatic stimulation with high output pacing. The 8-Georgian sheath was peeled away and lead was fixated to pectoralis muscle using 0 silk suture. A second 8-Georgian sheath was advanced into the retained guidewire without any resistance. Guidewire and dilator removed. The right atrial lead was then advanced into right atrium and positioned into right atrial appendage under fluoroscopic guidance. There was adequate pacing and sensing thresholds and no diaphragmatic stimulation with high output pacing. The 8-Georgian sheath was peeled away and the lead was fixated to the pectoralis muscle using 0 silk suture. A pursestring using a 2-[address] needle was placed around the venous puncture site to stop the backbleeding. The pacemaker pocket was created using blunt dissection over the pectoralis muscle within the pectoralis fascia. The pocket was flushed with copious amounts of bacitracin saline wash and inspected for hemostasis. Pulse generator was then attached to leads making sure the pins were in appropriate position, passed set passed set screw and set screws were all tightened. Pulse generator was then placed in the pocket, making sure the leads were lying flat beneath the device. A stay stitch using 0 silk suture was used to secure the device to the pectoralis muscle. The incision was then closed in 3-layer fashion with 2-0 Vicryl interrupted suture followed by 3-0 Vicryl interrupted suture, followed by 4-0 Monocryl running stitch and Dermabond was applied followed by a Telfa and micropore dressing. EQUIPMENT: 1. The pulse generator is a Medtronic Dannielle XT DR ALMA ROSA Hanson [id number], serial number [id number]. 2. Right atrial lead Medtronic 5076-45 cm, serial #[id number]. 3. Right ventricular lead, Medtronic 5076-52 cm, serial #[id number]. INTRAOPERATIVE TESTIN. Right atrial lead: P waves 1.9 millivolts, impedance 714 ohms, threshold 0.3 volts at 0.5 milliseconds. 2. Right ventricular lead: R waves 4.8 millivolts, impedance 1145 ohms, threshold 0.3 volts at 0.5 milliseconds. FINAL PARAMETERS THROUGH THE DEVICE: 1. Right atrial lead: P waves 1.8 millivolts, impedance 511 ohms, threshold 0.5 volts at 0.4 milliseconds. 2. Right ventricular lead: R-wave 6.4 millivolts, impedance 893 ohms, threshold 0.5 volts at 0.4 milliseconds. FINAL PARAMETERS: MVP 60/120, right atrial amplitude and right ventricular amplitude 3.5 volts, pulse width 0.4 milliseconds, sensitivity 0.3 millivolts. IMPRESSION: Successful implantation of a dual chamber rate responsive permanent pacemaker under fluoroscopic guidance along with peripheral venogram secondary to tachybrady syndrome. PLAN: Monitor patient overnight, 12-lead ECG, chest x-ray. She cannot lift the left elbow or left shoulder for 1 month. She cannot lift more than 10 pounds with the left arm for 2 weeks. She is to keep the dressing on and dry until her wound check next week at [facility] cardiology. She can restart her Eliquis on postop day #1. I attest to the content of the Intraoperative Record and any orders documented therein. Any exceptions are noted below. FRANKIE
== END 2020-07-22 12:36 | disposition home or self-care (01) | DRG 244 ==
LOC: ED 01:15 → 2S 01:15

== ENCOUNTER 2021-12-01 08:16 | Inpatient (IN) ==
--- NOTE | 2021-12-01 08:39 | Emergency Department Note ---
Impression & Plan Diverticulitis, Perforated bowel ED Provider Note NAME: ISMAEL MONTANA AGE: 86 SEX: F : 1935 ARRIVES VIA: Walk-In INFORMANT: Patient ED PROVIDER(S): Farhat Domínguez DO CHIEF COMPLAINT: Abdominal pain HPI: Patient is an 86-year-old female with a past medical history of a pacemaker, A. fib, cholecystitis, hypertension, who presents to the ER for abdominal pain. She notes that this started this past into Tuesday. She was seen and evaluated and placed on Cipro. She has been taking her antibiotics. Pain has been improving throughout the day but is worse in the morning when she wakes up. Pain is currently 7 out of 10 consequently she came in. No nausea or vomiting. Denies any dysuria, urgency, or frequency. No bowel movement since this past Tuesday. No other exacerbating or remitting factors. This does feel like her previous bouts of diverticulitis. She has not missed any doses of antibiotics. ROS: See above HPI for pertinent positives & negatives. A total of 10 systems reviewed and were otherwise negative. PAST MEDICAL HISTORY:See Below PAST SURGICAL HISTORY:See Below FAMILY HISTORY:See Below SOCIAL HISTORY:See Below HOME MEDICATIONS:See Below ALLERGIES:See Below VITALS:See Below PHYSICAL EXAMINATION: GENERAL: Sitting up in bed, alert, well appearing, well nourished, no distress, non-toxic EYE EXAM: normal conjunctiva. LUNGS: Clear to auscultation. Normal chest wall mechanics HEART: no murmurs, S1 normal and S2 normal ABDOMEN: abdomen soft, tender palpation left lower quadrant, normo-active bowel sounds, no masses, no rebound or guarding. BACK: Back is symmetrical on inspection and there is no deformity, no midline tenderness, no CVA tenderness. SKIN: no rashes and no bruising UPPER EXTREMITIES: upper extremities are grossly normal. LOWER EXTREMITIES: No pitting edema. NEURO EXAM: Normal sensorium, cranial nerves II-XII grossly intact, normal speech, no gross weakness of arms, no gross weakness of legs. MEDICAL DECISION MAKING: Patient is an 86-year-old female who presents ER for left lower quadrant abdominal pain. IV was established blood work was obtained. Labs show no significant leukocytosis or anemia. BMP along with LFTs bilirubin and lipase was unremarkable. UA was clean. Covid was negative. CT abdomen pelvis suggest acute diverticulitis with perforation and a questionable abscess/phlegmon. This was discussed with Dr. Montes from general surgery. Evaluated the patient at bedside. Believe this patient can be admitted and treated with IV antibiotics. Discussed with Diana montoya for further evaluation. Patient was given IV cefepime and Flagyl due to allergies. He was updated bedside. Declined pain medications. Was admitted for further work-up. Triage Nursing notes reviewed. Limited review of prior medical records performed Vital Signs: reviewed and remarkable for no significant abnormalities Differential diagnosis: Differential diagnoses includes but is not limited to gastritis, peptic ulcer disease, GERD, gallbladder disease, pancreatitis, small bowel obstruction, acute coronary syndrome, pericarditis, ischemic bowel, irritable bowel disease, irritable bowel syndrome, appendicitis, diverticulitis, malignancy, hernia, urinary tract infection, torsion, perforation, trauma, infectious. ER treatment provided: See below Diagnostics interpreted by me: ECG: none Cardiac Monitoring: An order was placed for continuous cardiac monitoring. The monitor shows a rate of 90 with sinus rhythm. Laboratory studies: As stated above and show below. Imaging studies: CT abdomen pelvis as described above Consultation(s): Discussed with Dr. Yariel Montes from general surgery who agrees with admission evaluate the patient at bedside Discussed with Diana montoya for admission Procedures: none Critical Care: None Past Med/Surg History Medical History Diverticulosis Gastroparesis GERD (gastroesophageal reflux disease) History of skin cancer Hyperlipidemia Hypertension Migraines On anticoagulant therapy Pacemaker Paroxysmal atrial fibrillation Sensorineural hearing loss (SNHL) of both ears Tachy-michael syndrome Thoracic aortic aneurysm Mildly dilated on echo 02/2019 per cardiology, but not seen on 08/2019 echo at [facility]. Surgical History History of breast biopsy History of cataract surgery History of cholecystectomy 02/02/2020; [facility]; MAC #3, ETT 7.0. No complications. History of cystoscopy W/ STONE EXTRACTION History of ERCP with stone removal and stent placement 02/28 [place] History of lumbar surgery History of Mohs micrographic surgery for skin cancer History of tooth extraction Status post trigger finger release Family History Other Coronary heart disease No family history of adverse response to anesthesia Social History Smoking Status: Never smoker Second Hand Exposure: No; Hx Alcohol Use: No Hx Substance Use: No Preferred Language: Ethiopian Communication Ability: Effective Scraper Meat Required: No Beliefs That Will Affect Care: None marital status: / Current Living Situation: Alone Feels Safe at Home: Yes Assistive Devices: Glasses Allergies Allergies Allergy/AdvReac Type Severity Reaction Status Date / Time sulfamethoxazole Allergy Intermediate RASH Verified 12/01/21 10:22 trimethoprim Allergy Intermediate RASH Verified 12/01/21 10:22 Penicillins Allergy Mild Rash Verified 12/01/21 10:22 propoxyphene Allergy Mild Unknown Verified 12/01/21 10:22 Sulfa (Sulfonamide Allergy Mild Rash Unverified 12/01/21 10:22 Antibiotics) venlafaxine [From Effexor] Allergy Mild Hives/Itchy Unverified 12/01/21 10:22 /Rash ciprofloxacin [From Cipro] Allergy Unknown Unknown Verified 12/01/21 10:22 metronidazole Allergy Unknown Unknown Verified 12/01/21 10:22 amlodipine AdvReac Intermediate LEGS AND Verified 12/01/21 10:22 FEET GET TIGHT atorvastatin AdvReac Intermediate Inc Lft Unverified 12/01/21 10:22 after Cholecystectomy enalapril AdvReac Intermediate tightness Verified 12/01/21 10:22 in ankles erythromycin base AdvReac Intermediate Vomiting Verified 12/01/21 10:22 fentanyl AdvReac Intermediate SEVERE Verified 12/01/21 10:22 N&V;DIZZY ondansetron [From Zofran] AdvReac Intermediate Nausea Verified 12/01/21 10:22 topiramate [From Topamax] AdvReac Intermediate "FINGERS Verified 12/01/21 10:22 NUMB" tramadol [From Ultram] AdvReac Intermediate Vomiting Verified 12/01/21 10:22 clindamycin AdvReac Mild Nausea Verified 12/01/21 10:22 codeine AdvReac Mild SICK TO Verified 12/01/21 10:22 STOMACH Quinolones AdvReac Mild N&V Verified 12/01/21 10:22 Home Meds Home Medications Medication Instructions Recorded Confirmed denosumab 60 mg/mL subcutaneous 1 dose SUBCUT Q180D 01/14/19 12/01/21 syringe (Prolia) sumatriptan succinate 100 mg tablet 100 mg PO DAILY PRN 01/14/19 12/01/21 terazosin 1 mg capsule 1 mg PO HS 08/29/19 12/01/21 apixaban 2.5 mg tablet (Eliquis) 2.5 mg PO BID 02/02/20 12/01/21 gabapentin 100 mg capsule 100 mg PO TID 02/02/20 12/01/21 dicyclomine 10 mg capsule 10 mg PO QID PRN 06/06/20 12/01/21 multivit with 1 tab PO QDL 06/22/20 12/01/21 uaghxlkd-[id number]-FI-lutein 8 mg iron-400 mcg-300 mcg tablet (Centrum Silver Women) acetaminophen 325 mg tablet 650 mg PO Q6 PRN 08/03/20 12/01/21 (Tylenol) metoprolol tartrate 25 mg tablet 25 mg PO HS 10/13/20 12/01/21 metoprolol tartrate 25 mg tablet 50 mg PO QAM 10/13/20 12/01/21 cholecalciferol (vitamin D3) 25 50 mcg PO QDL 01/21/21 12/01/21 mcg (1,000 unit) capsule (Vitamin D3) omeprazole 40 mg capsule,delayed 40 mg PO DAILYBB 01/21/21 12/01/21 release rosuvastatin 5 mg tablet 5 mg PO HS 10/06/21 12/01/21 ciprofloxacin HCl 500 mg tablet 500 mg PO BID 12/01/21 12/01/21 ropinirole 0.25 mg tablet 0.25 mg PO HS 12/01/21 12/01/21 Results & Data (ED) Vital Signs Vital Signs - 24 hr 12/01/21 08:19 12/01/21 08:30 12/01/21 08:39 Temperature 36.2 C L Temperature Source Temporal Artery Scan Pulse Rate 90 98 H Pulse Rate [Apical] 99 H Pulse Rate from SpO2 Sensor 96 H Pulse Rhythm Pulse Rhythm [Apical] Irregular Respiratory Rate 20 16 23 Respiratory Effort / Characteristics Non-Labored Spontaneous Non-Labored Spontaneous Respiratory Depth Normal Normal Respiratory Pattern Regular Blood Pressure 122/78 Blood Pressure [Left Arm] 132/90 Blood Pressure Mean 92 Blood Pressure Mean [Left Arm] 104 Blood Pressure Position [Left Arm] Semi-fowlers Pulse Oximetry 97 97 97 Oxygen Delivery Method Room Air Room Air Sepsis Recent Fever Within 48 Hours No Sepsis New/Unexplained Change in Mental Status No Sepsis Action Taken by Nursing No Action Required 12/01/21 08:41 12/01/21 09:00 12/01/21 09:30 Temperature Temperature Source Pulse Rate 97 H 93 H 94 H Pulse Rate [Apical] Pulse Rate from SpO2 Sensor 84 96 H Pulse Rhythm Irregular Pulse Rhythm [Apical] Respiratory Rate 16 21 23 Respiratory Effort / Characteristics Respiratory Depth Respiratory Pattern Blood Pressure 110/72 133/76 Blood Pressure [Left Arm] Blood Pressure Mean 84 95 Blood Pressure Mean [Left Arm] Blood Pressure Position [Left Arm] Pulse Oximetry 97 95 93 Oxygen Delivery Method Room Air Sepsis Recent Fever Within 48 Hours Sepsis New/Unexplained Change in Mental Status Sepsis Action Taken by Nursing 12/01/21 10:00 12/01/21 10:30 12/01/21 11:37 Temperature Temperature Source Pulse Rate 100 H 94 H Pulse Rate [Apical] Pulse Rate from SpO2 Sensor 99 H 96 H Pulse Rhythm Pulse Rhythm [Apical] Respiratory Rate 23 23 Respiratory Effort / Characteristics Respiratory Depth Respiratory Pattern Blood Pressure 148/88 H 146/91 H Blood Pressure [Left Arm] Blood Pressure Mean 108 109 Blood Pressure Mean [Left Arm] Blood Pressure Position [Left Arm] Pulse Oximetry 95 97 Oxygen Delivery Method Sepsis Recent Fever Within 48 Hours Sepsis New/Unexplained Change in Mental Status Sepsis Action Taken by Nursing 12/01/21 12:00 Temperature Temperature Source Pulse Rate Pulse Rate [Apical] Pulse Rate from SpO2 Sensor 87 Pulse Rhythm Pulse Rhythm [Apical] Respiratory Rate Respiratory Effort / Characteristics Respiratory Depth Respiratory Pattern Blood Pressure 162/104 H Blood Pressure [Left Arm] Blood Pressure Mean 123 Blood Pressure Mean [Left Arm] Blood Pressure Position [Left Arm] Pulse Oximetry 96 Oxygen Delivery Method Room Air Sepsis Recent Fever Within 48 Hours Sepsis New/Unexplained Change in Mental Status Sepsis Action Taken by Nursing Laboratory Data Result diagrams: 12/01/21 08:40 12/01/21 08:40 Lab Results 12/01/21 12/01/21 12/01/21 Range/Units 08:40 08:40 10:35 WBC 10.48 (4.8-10.8) K/uL RBC 3.99 L (4.2-5.4) M/uL Hgb 12.2 (12.0-16.0) g/dL Hct 37.0 (37-47) % MCV 92.7 (80-100) fL MCH 30.6 (25-34) pg MCHC 33.0 (32-36) g/dL RDW Std Deviation 45.1 (36.4-46.3) fL RDW Coeff of Ling 13.3 (11.5-14.5) % Plt Count 288 (130-400) K/uL MPV 9.5 (7.4-10.4) fL Immature Gran % (Auto) 0.4 % Neut % (Auto) 77.8 % Lymph % (Auto) 12.7 % [place] % (Auto) 7.8 % Eos % (Auto) 1.1 % Baso % (Auto) 0.2 % Neut # (Auto) 8.15 H (1.4-6.5) K/uL Lymph # (Auto) 1.33 (1.2-3.4) K/uL [place] # (Auto) 0.82 H (0.11-0.59) K/uL Eos # (Auto) 0.12 (0-0.5) K/uL Baso # (Auto) 0.02 (0-0.2) K/uL Immature Gran # (Auto) 0.04 H (0.00-0.02) K/uL Sodium 137 (136-145) mmol/L Potassium 3.6 (3.5-5.1) mmol/L Chloride 103 (98-107) mmol/L Carbon Dioxide 23 (21-32) mmol/L Anion Gap 11 (3-11) BUN 17 (6-23) mg/dl Creatinine 0.71 (0.6-1.2) mg/dl Est Cr Clr Drug Dosing 43.7 ml/min Est GFR ( Amer) 90.0 ml/min Est GFR (Non-Af Amer) 77.7 ml/min BUN/Creatinine Ratio 23.9 H (10-20) Glucose 129 H (70-99(Fasting)) mg/dl Calcium 9.0 (8.5-10.1) mg/dl Total Bilirubin 0.7 (0.2-1.0) mg/dl AST 20 (13-39) U/L ALT 20 (7-52) U/L Alkaline Phosphatase 86 (34-104) U/L Total Protein 7.3 (6.0-8.3) gm/dl Albumin 4.0 (3.4-5.0) gm/dl Globulin 3.3 (2.5-4.0) gm/dl Albumin/Globulin Ratio 1.2 (0.9-2) Lipase 18 (11-82) U/L Urine Color Yellow Urine Appearance Clear (Clear) Urine pH 7.5 (4.5-7.5) Ur Specific [place] 1.007 (1.000-1.030) Urine Protein Negative (Negative) Urine Glucose (UA) Negative (Negative) Urine Ketones Negative (Negative) Urine Blood Negative (Negative) Urine Nitrite Negative (Negative) Urine Bilirubin Negative (Negative) Urine Urobilinogen Negative (Negative) Ur Leukocyte Esterase Negative (Negative) SARS-CoV-2, RNA, NAAT (NEGATIVE) 12/01/21 Range/Units 11:31 WBC (4.8-10.8) K/uL RBC (4.2-5.4) M/uL Hgb (12.0-16.0) g/dL Hct (37-47) % MCV (80-100) fL MCH (25-34) pg MCHC (32-36) g/dL RDW Std Deviation (36.4-46.3) fL RDW Coeff of Ling (11.5-14.5) % Plt Count (130-400) K/uL MPV (7.4-10.4) fL Immature Gran % (Auto) % Neut % (Auto) % Lymph % (Auto) % [place] % (Auto) % Eos % (Auto) % Baso % (Auto) % Neut # (Auto) (1.4-6.5) K/uL Lymph # (Auto) (1.2-3.4) K/uL [place] # (Auto) (0.11-0.59) K/uL Eos # (Auto) (0-0.5) K/uL Baso # (Auto) (0-0.2) K/uL Immature Gran # (Auto) (0.00-0.02) K/uL Sodium (136-145) mmol/L Potassium (3.5-5.1) mmol/L Chloride (98-107) mmol/L Carbon Dioxide (21-32) mmol/L Anion Gap (3-11) BUN (6-23) mg/dl Creatinine (0.6-1.2) mg/dl Est Cr Clr Drug Dosing ml/min Est GFR ( Amer) ml/min Est GFR (Non-Af Amer) ml/min BUN/Creatinine Ratio (10-20) Glucose (70-99(Fasting)) mg/dl Calcium (8.5-10.1) mg/dl Total Bilirubin (0.2-1.0) mg/dl AST (13-39) U/L ALT (7-52) U/L Alkaline Phosphatase (34-104) U/L Total Protein (6.0-8.3) gm/dl Albumin (3.4-5.0) gm/dl Globulin (2.5-4.0) gm/dl Albumin/Globulin Ratio (0.9-2) Lipase (11-82) U/L Urine Color Urine Appearance (Clear) Urine pH (4.5-7.5) Ur Specific [place] (1.000-1.030) Urine Protein (Negative) Urine Glucose (UA) (Negative) Urine Ketones (Negative) Urine Blood (Negative) Urine Nitrite (Negative) Urine Bilirubin (Negative) Urine Urobilinogen (Negative) Ur Leukocyte Esterase (Negative) SARS-CoV-2, RNA, NAAT NEGATIVE (NEGATIVE) Administered Medications Discontinued Medications Sodium Chloride (Nss 1000ml) 1,000 mls @ 999 mls/hr IV .Q1H1M ONE Stop: 12/01/21 09:41 Last Infusion: 12/01/21 10:46 Dose: 0 mls/hr Documented by: [id number] Admin: 12/01/21 09:48 Dose: 999 mls/hr Documented by: [id number] Metronidazole (Flagyl) 500 mg in 100 mls @ 100 mls/hr IV NOW ONE Stop: 12/01/21 12:29 Last Admin: 12/01/21 12:14 Dose: 100 mls/hr Documented by: [id number] Cefepime HCl (Maxipime) 2,000 mg in 20 mls @ 5 mls/min IV NOW STA; Protocol Stop: 12/01/21 11:28 Last Admin: 12/01/21 11:42 Dose: 5 mls/min Documented by: [id number] Ioversol (Optiray 320 100ml) 95 ml IV ONCE ONE Stop: 12/01/21 10:59 Last Admin: 01/25/22 10:54 Dose: 95 ml Documented by: [id number] Morphine Sulfate (Morphine Sulfate 4 Mg/Ml 1 Ml Carp\\Vial) 4 mg IV NOW STA Stop: 12/01/21 08:42 Last Admin: 12/01/21 09:47 Dose: 4 mg Documented by: [id number] Ondansetron HCl (Ondansetron Inj 2 Mg/Ml 2 Ml Vial) 4 mg IV NOW STA Stop: 12/01/21 08:42 Last Admin: 12/01/21 09:48 Dose: 4 mg Documented by: [id number] Imaging Data Radiologist's Impression: Abdomen/Pelvis CT 12/01/21 08:23 CT abd pelvis IV con only CLINICAL HISTORY: abd pain w/ diverticulitis worse TECHNIQUE: Helical axial images of the abdomen and pelvis were obtained and displayed. Automated dose lowering techniques and/or adjustment according to patient size were utilized for this exam. This exam was performed with intravenous contrast. COMPARISON: Comparison is made to CT abdomen pelvis 01/21/2021 FINDINGS: Lower chest: Trace atelectasis versus scarring is seen. Cardiomegaly is partially visualized. Liver: Unremarkable. No focal lesions are seen. Gallbladder and biliary tree: Patient is status post cholecystectomy. Physiologic prominence of the common bile duct is seen measuring approximately 8 mm in diameter. Pneumobilia is seen. Pancreas: Unremarkable, no focal lesions. Spleen: Unremarkable. Adrenals: Unremarkable. Kidneys and ureters: Bilateral cysts are seen in the kidneys. Bladder: Unremarkable. Reproductive organs: Unremarkable. Bowel: Severe wall thickening and fat stranding is seen about the sigmoid colon compatible with acute diverticulitis. There is a gas and fluid collection adjacent to the sigmoid colon measuring approximately 3.2 x 1.3 cm compatible with contained rupture/abscess. Lymph nodes Retroperitoneal: Unremarkable. Mesenteric: Subcentimeter lymph nodes are noted. Pelvic: Unremarkable. Peritoneum: There is a small amount of free fluid layering in the pelvis as well as the fat stranding around the sigmoid colon mentioned above. Vessels: Atherosclerotic calcifications are seen. Abdominal wall: Unremarkable. Bones: Degenerative changes in the visualized spine. IMPRESSION: 1. Acute diverticulitis is seen. There is a gas and fluid collection adjacent to this finding compatible with contained rupture and/or abscess. 2. Additional findings as above. ACT 112: Negative or not required by law. Electronically signed by: Petros Gordon M.D. 12/01/2021 11:09 AM Discharge Plan Visit Data Chief Complaint: Abdominal Pain Stated Complaint: ABDOMINAL PAIN ED Provider: Farhat Domínguez Discharge Problem: Diverticulitis, Perforated bowel Forms Stand Alone Forms: [facility] Prescriptions Prescriptions: No Action rosuvastatin 5 mg tablet 5 mg PO HS RF: 0 sumatriptan succinate 100 mg tablet 100 mg PO DAILY PRN (Reason: Migraine Headache) RF: 0 Prolia 60 mg/mL Syringe 1 dose SUBCUT Q180D RF: 0 terazosin 1 mg capsule 1 mg PO HS RF: 0 Eliquis 2.5 mg Tablet 2.5 mg PO BID RF: 0 gabapentin 100 mg Capsule 100 mg PO TID RF: 0 dicyclomine 10 mg capsule 10 mg PO QID PRN (Reason: ABD PAIN) RF: 0 metoprolol tartrate 25 mg tablet 25 mg PO HS RF: 0 metoprolol tartrate 25 mg tablet 50 mg PO QAM RF: 0 Centrum Silver Women 8 mg iron-400 mcg-300 mcg Tablet 1 tab PO QDL RF: 0 acetaminophen [Tylenol] 325 mg Tablet 650 mg PO Q6 PRN (Reason: Pain) RF: 0 omeprazole 40 mg Capsule,Delayed Release(Dr/Ec) 40 mg PO DAILYBB RF: 0 cholecalciferol (vitamin D3) [Vitamin D3] 25 mcg (1,000 unit) Capsule 50 mcg PO QDL RF: 0 ciprofloxacin HCl 500 mg tablet 500 mg PO BID RF: 0 ropinirole 0.25 mg tablet 0.25 mg PO HS RF: 0 Referrals Referrals: Preston Villagran MD [Primary Care Provider] -
[2021-12-01] MEDS ORDERED: SODIUM CHLORIDE 0.9% 1000ML 1,000 ML IV ONE (08:41)
[2021-12-01] MEDS ORDERED: MoRPHine SULFATE 4 MG/ML 1 ML CARP\\VIAL IV STA (08:41)
[2021-12-01] MEDS ORDERED: ONDANSETRON INJ 2 MG/ML 2 ML VIAL IV STA ×2 (08:41→11:28)
[2021-12-01 09:03] LABS: Basophils # (auto) 0.02 K/uL (0-0.2); Basophils % (auto) 0.2 %; Eosinophils # (auto) 0.12 K/uL (0-0.5); Eosinophils % (auto) 1.1 %; Hemoglobin 12.2 g/dL (12.0-16.0); Immature Granulocytes # (auto) 0.04 K/uL (0.00-0.02); Immature Granulocytes % (auto) 0.4 %; Lymphocytes # (auto) 1.33 K/uL (1.2-3.4); Lymphocytes % (auto) 12.7 %; Mean Corpuscular Hemoglobin 30.6 pg (25-34); Mean Corpuscular Volume 92.7 fL (80-100); Mean Platelet Volume 9.5 fL (7.4-10.4); Monocytes # (auto) 0.82 K/uL (0.11-0.59); Monocytes % (auto) 7.8 %; Neutrophils # (auto) 8.15 K/uL (1.4-6.5); Neutrophils % (auto) 77.8 %; Platelet Count 288 K/uL (130-400); RDW Coefficient of Variation 13.3 % (11.5-14.5); RDW Standard Deviation 45.1 fL (36.4-46.3); Red Blood Count 3.99 M/uL (4.2-5.4); White Blood Count 10.48 K/uL (4.8-10.8)
[2021-12-01 09:43] LABS: Albumin Globulin Ratio 1.2 (0.9-2); BUN Creatinine Ratio 23.9 (10-20); Bilirubin,Total 0.7 mg/dl (0.2-1.0); Creatinine Clr Calc Pharmacy 43.7 ml/min; Est GFR (Non-African American) 77.7 ml/min; Globulin 3.3 gm/dl (2.5-4.0); Potassium 3.6 mmol/L (3.5-5.1); Total Protein 7.3 gm/dl (6.0-8.3)
[2021-12-01 10:45] LABS: Appearance Urine Clear (Clear); Bilirubin Urine Negative (Negative); Blood Urine Negative (Negative); Color Urine Yellow; Glucose Urine UA Negative (Negative); Ketones Urine Negative (Negative); Leukocyte Esterase Urine Negative (Negative); Nitrite Urine Negative (Negative); Protein Urine Negative (Negative); Specific Gravity Urine 1.007 (1.000-1.030); Urobilinogen Urine Negative (Negative); pH Urine 7.5 (4.5-7.5)
[2021-12-01] MEDS ORDERED: OPTIRAY 320 100ml IV ONE (10:58)
--- NOTE | 2021-12-01 11:10 | CT Scan Report ---
CT abd pelvis IV con only CLINICAL HISTORY: abd pain w/ diverticulitis worse TECHNIQUE: Helical axial images of the abdomen and pelvis were obtained and displayed. Automated dose lowering techniques and/or adjustment according to patient size were utilized for this exam. This e xam was performed with intravenous contrast. COMPARISON: Comparison is made to CT abdomen pelvis 01/21/2021 FINDINGS: Lower chest: Trace atelectasis versus scarring is seen. Cardiomegaly is partially visualized. Liver: Unremarkable. No focal lesions are seen. Gallbladder and biliary tree: Patient is status post cholecystectomy. Physiologic prominence of the c ommon bile duct is seen measuring approximately 8 mm in diameter. Pneumobilia is seen. Pancreas: Unremarkable, no focal lesions. Spleen: Unremarkable. Adrenals: Unremarkable. Kidneys and ureters: Bilateral cysts are seen in the kidneys. Bladder: Unremarkable. Reproductive organs: Unremarkable. Bowel: Severe wall thickening and fat stranding is seen about the sigmoid colon compatible with acute diverticulitis. There is a gas and fluid collection adjacent to the sigmoid colon measuring approxim ately 3.2 x 1.3 cm compatible with contained rupture/abscess. Lymph nodes Retroperitoneal: Unremarkable. Mesenteric: Subcentimeter lymph nodes are noted. Pelvic: Unremarkable. Peritoneum: There is a small amount of free fluid layering in the pelvis as well as the fat stranding around the sigmoid colon mentioned above. Vessels: Atherosclerotic calcifications are seen. Abdominal wall: Unremarkable. Bones: Degenerative changes in the visualized spine. IMPRESSION: 1. Acute diverticulitis is seen. There is a gas and fluid collection adjacent to this finding compat ible with contained rupture and/or abscess. 2. Additional findings as above. ACT 112: Negative or not required by law. Electronically signed by: Petros Gordon M.D. 12/01/2021 11:09 AM
[2021-12-01] MEDS ORDERED: CEFEPIME 2,000 MG/20 ML VIAL IV STA (11:25)
[2021-12-01] MEDS ORDERED: metroNIDAZOLE 500 MG/100 ML BAG IV ONE (11:30)
--- NOTE | 2021-12-01 12:58 | History & Physical Report ---
Date of Service December 01, 2021 Assessment & Plan (1) Acute diverticulitis: Plan: -Admit to [facility] -Patient presenting from home with reports of left lower quadrant abdominal pain and nausea. -In the ED, CT ABD/pelvis shows Acute diverticulitis with a gas and fluid collection adjacent to this finding compatible with contained rupture and/or abscess. -Patient is afebrile, no leukocytosis, hemodynamically stable -In the ED, s/p cefepime and Flagyl, will continue with -No reports of diarrhea however patient does report a bowel movement with black stool a few days ago. H&H currently stable. Will monitor for further signs of GI bleeding closely. -Evaluated by Dr. Yariel Montes general surgery in the ED, no plan for surgical intervention at this time -Clear liquids -Pain control with scheduled Tylenol, PRN Morphine (2) Paroxysmal atrial fibrillation: Plan: -Rate controlled on metoprolol -Anticoagulated on Eliquis - due to possible need for OR, will place patient on IV heparin for now. Last dose of Eliquis 11/30 evening. (3) Tachy-michael syndrome: (4) Pacemaker: Plan: -No acute issues (5) Hypertension: Plan: -BP mildly elevated, likely situational/due to pain -continue metoprolol and terazosin (6) DVT prophylaxis: Plan: -on IV heparin as above History of Present Illness Chief Complaint: Abdominal pain Primary Care Provider: Preston Villagran MD 86-year-old female with PMH dyslipidemia, prediabetes, paroxysmal atrial fibrillation anticoagulated on Eliquis, tachybradycardia syndrome s/p pacemaker, HTN, GERD, RLS, history of migraines, and other problems listed below who presents the ED for evaluation of left lower quadrant abdominal pain. Patient reports her symptoms began about 6 days ago. She was suspicious that she may have diverticulitis again. She called her PCP who started her on Cipro on 11/28. Patient reports minimal improvement in her symptoms since that time. She has had associated nausea however denies vomiting and diarrhea. Reports last bowel movement was 3 days ago and stool was very dark. She has had a poor appetite. No fevers or chills. Denies chest pain, shortness of breath, palpitations. No lightheadedness, dizziness, diaphoresis, syncopal events. Has had some urinary hesitancy however denies dysuria. In the ED, CT ABD/pelvis shows Acute diverticulitis with a gas and fluid collection adjacent to this finding compatible with contained rupture and/or abscess. Patient was given IV cefepime, IV Flagyl, IV morphine, IV Zofran, IVF. Allergies Allergy/AdvReac Type Severity Reaction Status Date / Time sulfamethoxazole Allergy Intermediate RASH Verified 12/01/21 10:22 trimethoprim Allergy Intermediate RASH Verified 12/01/21 10:22 Penicillins Allergy Mild Rash Verified 12/01/21 10:22 propoxyphene Allergy Mild Unknown Verified 12/01/21 10:22 Sulfa (Sulfonamide Allergy Mild Rash Unverified 12/01/21 10:22 Antibiotics) venlafaxine [From Effexor] Allergy Mild Hives/Itchy Unverified 12/01/21 10:22 /Rash ciprofloxacin [From Cipro] Allergy Unknown Unknown Verified 12/01/21 10:22 metronidazole Allergy Unknown Unknown Verified 12/01/21 10:22 amlodipine AdvReac Intermediate LEGS AND Verified 12/01/21 10:22 FEET GET TIGHT atorvastatin AdvReac Intermediate Inc Lft Unverified 12/01/21 10:22 after Cholecystectomy enalapril AdvReac Intermediate tightness Verified 12/01/21 10:22 in ankles erythromycin base AdvReac Intermediate Vomiting Verified 12/01/21 10:22 fentanyl AdvReac Intermediate SEVERE Verified 12/01/21 10:22 N&V;DIZZY ondansetron [From Zofran] AdvReac Intermediate Nausea Verified 12/01/21 10:22 topiramate [From Topamax] AdvReac Intermediate "FINGERS Verified 12/01/21 10:22 NUMB" tramadol [From Ultram] AdvReac Intermediate Vomiting Verified 12/01/21 10:22 clindamycin AdvReac Mild Nausea Verified 12/01/21 10:22 codeine AdvReac Mild SICK TO Verified 12/01/21 10:22 STOMACH Quinolones AdvReac Mild N&V Verified 12/01/21 10:22 Home Medications Medication Instructions Recorded Confirmed Type denosumab 60 mg/mL subcutaneous 1 dose SUBCUT Q180D 01/14/19 12/01/21 History syringe (Prolia) sumatriptan succinate 100 mg tablet 100 mg PO DAILY PRN 01/14/19 12/01/21 History terazosin 1 mg capsule 1 mg PO HS 08/29/19 12/01/21 History apixaban 2.5 mg tablet (Eliquis) 2.5 mg PO BID 02/02/20 12/01/21 History gabapentin 100 mg capsule 100 mg PO TID 02/02/20 12/01/21 History dicyclomine 10 mg capsule 10 mg PO QID PRN 06/06/20 12/01/21 History multivit with 1 tab PO QDL 06/22/20 12/01/21 History jukciigk-natk-ZP-lutein 8 mg iron-400 mcg-300 mcg tablet (Centrum Silver Women) acetaminophen 325 mg tablet 650 mg PO Q6 PRN 08/03/20 12/01/21 History (Tylenol) metoprolol tartrate 25 mg tablet 25 mg PO HS 10/13/20 12/01/21 History metoprolol tartrate 25 mg tablet 50 mg PO QAM 10/13/20 12/01/21 History cholecalciferol (vitamin D3) 25 50 mcg PO QDL 01/21/21 12/01/21 History mcg (1,000 unit) capsule (Vitamin D3) omeprazole 40 mg capsule,delayed 40 mg PO DAILYBB 01/21/21 12/01/21 History release rosuvastatin 5 mg tablet 5 mg PO HS 10/06/21 12/01/21 History ciprofloxacin HCl 500 mg tablet 500 mg PO BID 12/01/21 12/01/21 History ropinirole 0.25 mg tablet 0.25 mg PO HS 12/01/21 12/01/21 History Past Med/Surg History Medical History Diverticulosis Gastroparesis GERD (gastroesophageal reflux disease) History of skin cancer Hyperlipidemia Hypertension Migraines On anticoagulant therapy Pacemaker Paroxysmal atrial fibrillation Sensorineural hearing loss (SNHL) of both ears Tachy-michael syndrome Thoracic aortic aneurysm Mildly dilated on echo 02/2019 per cardiology, but not seen on 08/[address] [facility]. Surgical History History of breast biopsy History of cataract surgery History of cholecystectomy 02/02/2020; [facility]; MAC #3, ETT 7.0. No complications. History of cystoscopy W/ STONE EXTRACTION History of ERCP with stone removal and stent placement 02/28 [place] History of lumbar surgery History of Mohs micrographic surgery for skin cancer History of tooth extraction Status post trigger finger release Family History Other Coronary heart disease No family history of adverse response to anesthesia Social History Smoking Status: Never smoker Second Hand Exposure: No; Hx Alcohol Use: No Hx Substance Use: No Preferred Language: Slovak Communication Ability: Effective Victorian Literature Professor Required: No Beliefs That Will Affect Care: None marital status: / Current Living Situation: Alone Feels Safe at Home: Yes Assistive Devices: Glasses Review of Systems 2 Review of Systems: ROS per HPI, all other systems reviewed and negative Physical Exam Constitutional: WD/WN, vitals as above Eyes: PERRL, conjunctivae normal, anicteric sclerae ENMT: external ear and nose normal, oropharynx normal Respiratory: normal respiratory effort, lungs clear to auscultation Cardiovascular: Rate/Rhythm: regular rate and regular rhythm Vessels: normal peripheral pulses Extremities: no edema Gastrointestinal (Abdomen): Inspection/Auscultation: + abdomen distended and normal bowel sounds Percussion/Palpation: + abdomen tender (LLQ), + guarding and abdomen soft; no hepatosplenomegaly Musculoskeletal: no cyanosis or clubbing, extremities motor strength 5/5 Skin: no rashes, warm and dry Neurologic: PERRL, EOMI, accommodation nl, no face palsy, no dysarthria Psychiatric: A+Ox3, euthymic affect Results & Data Results & Data ([facility]) Vital Signs (Past 12 Hours) Vital Signs Temp Pulse Pulse Resp BP BP Pulse Ox 12/01/21 12:00 162/104 H 96 12/01/21 11:37 97 12/01/21 10:30 94 H 23 146/91 H 12/01/21 10:00 100 H 23 148/88 H 95 12/01/21 09:30 94 H 23 133/76 93 12/01/21 09:00 93 H 21 110/72 95 12/01/21 08:41 97 H 16 97 12/01/21 08:39 98 H 23 97 12/01/21 08:30 99 H 16 132/90 97 12/01/21 08:19 36.2 C L 90 20 122/78 97 Laboratory Results Short CBC 12/01/21 Range/Units 08:40 WBC 10.48 (4.8-10.8) K/uL Hgb 12.2 (12.0-16.0) g/dL Hct 37.0 (37-47) % Plt Count 288 (130-400) K/uL BMP 12/01/21 08:40 Sodium 137 Potassium 3.6 Chloride 103 Carbon Dioxide 23 BUN 17 Creatinine 0.71 Glucose 129 H Calcium 9.0 Liver Function 12/01/21 Range/Units 08:40 Total Bilirubin 0.7 (0.2-1.0) mg/dl AST 20 (13-39) U/L ALT 20 (7-52) U/L Alkaline Phosphatase 86 (34-104) U/L Albumin 4.0 (3.4-5.0) gm/dl Urine 12/01/21 Range/Units 10:35 Urine Color Yellow Urine Appearance Clear (Clear) Urine pH 7.5 (4.5-7.5) Ur Specific [place] 1.007 (1.000-1.030) Urine Protein Negative (Negative) Urine Glucose (UA) Negative (Negative) Diagnostic Findings Abdomen/Pelvis CT 12/01/21 08:23 CT abd pelvis IV con only CLINICAL HISTORY: abd pain w/ diverticulitis worse TECHNIQUE: Helical axial images of the abdomen and pelvis were obtained and displayed. Automated dose lowering techniques and/or adjustment according to patient size were utilized for this exam. This exam was performed with intr avenous contrast. COMPARISON: Comparison is made to CT abdomen pelvis 01/21/2021 FINDINGS: Lower chest: Trace atelectasis versus scarring is seen. Cardiomegaly is partially visualized. Liver: Unremarkable. No focal lesions are seen. Gallbladder and biliary tree: Patient is status post cholecystectomy. Physiologic prominence of the common bile duct is seen measuring approximately 8 mm in diameter. Pneumobilia is seen. Pancreas: Unremarkable, no focal lesions. Spleen: Unremarkable. Adrenals: Unremarkable. Kidneys and ureters: Bilateral cysts are seen in the kidneys. Bladder: Unremarkable. Reproductive organs: Unremarkable. Bowel: Severe wall thickening and fat stranding is seen about the sigmoid colon compatible with acute diverticulitis. There is a gas and fluid collection adjacent to the sigmoid colon measuring approximately 3.2 x 1.3 cm compatible with contained rupture/abscess. Lymph nodes Retroperitoneal: Unremarkable. Mesenteric: Subcentimeter lymph nodes are noted. Pelvic: Unremarkable. Peritoneum: There is a small amount of free fluid layering in the pelvis as well as the fat stranding around the sigmoid colon mentioned above. Vessels: Atherosclerotic calcifications are seen. Abdominal wall: Unremarkable. Bones: Degenerative changes in the visualized spine. IMPRESSION: 1. Acute diverticulitis is seen. There is a gas and fluid collection adjacent to this finding compatible with contained rupture and/or abscess. 2. Additional findings as above. ACT 112: Negative or not required by law. Electronically signed by: Petros Gordon M.D. 12/01/2021 11:09 AM Code Status & VTE Plan Code Status Patient is a full code as per my discussion with her. VTE Prophylaxis Plan VTE Prophylaxis will be ordered: Yes Supervising Physician Co-Signing Physician Notes Pt is a 86 y/o F with hx of Afib on eliquis, tachy-michael syndrome s/p pacemaker, HTN, CKD III, Prediabetes, HLD, Senile osteoporosis, Lumbar DDD, prior hx of Diverticulitis admitted for acute diverticulitis with possible rupture vs abscess. PE: Mild Distress due to pain Lungs: CTA, no wheezing or crackles Cardiac: Normal S1/S2, no murmur Abd: mild distended, soft, severe TTP of the b/l lower abd (L>R), no rebound tenderness Psych: AAOX3, normal affect A/P: Acute Diverticulitis: -CT Abd: Acute diverticulitis is seen. There is a gas and fluid collection adjacent to this finding compatible with contained rupture and/or abscess. -will continue cefepime and flagyl ---- pt tolerated the flagyl well -discussed with surgery: no need for any surgical intervention at this time, c/w abx - will switch the pt from eliquis to heparin gtt - clear liquids - prn pain meds Agree with A/P by Diana AGUAYO (1) Hypertension Hypertension type: essential hypertension Qualified Code(s): I10 - Essential (primary) hypertension
--- NOTE | 2021-12-01 13:05 | Surgery Consultation ---
Date of Consultation December 01, 2021 Assessment & Plan (1) Acute diverticulitis: (2) Tachy-michael syndrome: (3) Paroxysmal atrial fibrillation: 86-year-old woman with acute sigmoid diverticulitis with contained perforation and small abscess. Reviewing the CT scan, I do not believe she requ ires IR drainage of the abscess. We will have her admitted to the medicine service. We will place her on IV antibiotics. We will hold her Eliquis for now. She will be placed on a clear liquid diet. We will observe her. I have discussed the treatment plan with her and she is in agreement. History of Present Illness Reason for Consultation: Diverticulitis with abscess Requesting Physician: Dr. Domínguez, ED physician Attending Physician: Diana Linares History of Present Illness 86-year-old woman with past medical history positive for diverticulitis presents with 5-day history of left lower quadrant abdominal pain. She began with pain on Tuesday, and was placed on antibiotics on Tuesday. The pain has continued to worsen. She denies nausea vomiting. She denies chest pain, shortness of breath. She denies fevers or chills. CT scan in the emergency department demonstrates diverticulitis with microperforation and very small abscess. No free perforation. Allergies Allergy/AdvReac Type Severity Reaction Status Date / Time sulfamethoxazole Allergy Intermediate RASH Verified 12/01/21 10:22 trimethoprim Allergy Intermediate RASH Verified 12/01/21 10:22 Penicillins Allergy Mild Rash Verified 12/01/21 10:22 propoxyphene Allergy Mild Unknown Verified 12/01/21 10:22 Sulfa (Sulfonamide Allergy Mild Rash Unverified 12/01/21 10:22 Antibiotics) venlafaxine [From Effexor] Allergy Mild Hives/Itchy Unverified 12/01/21 10:22 /Rash ciprofloxacin [From Cipro] Allergy Unknown Unknown Verified 12/01/21 10:22 metronidazole Allergy Unknown Unknown Verified 12/01/21 10:22 amlodipine AdvReac Intermediate LEGS AND Verified 12/01/21 10:22 FEET GET TIGHT atorvastatin AdvReac Intermediate Inc Lft Unverified 12/01/21 10:22 after Cholecystectomy enalapril AdvReac Intermediate tightness Verified 12/01/21 10:22 in ankles erythromycin base AdvReac Intermediate Vomiting Verified 12/01/21 10:22 fentanyl AdvReac Intermediate SEVERE Verified 12/01/21 10:22 N&V;DIZZY ondansetron [From Zofran] AdvReac Intermediate Nausea Verified 12/01/21 10:22 topiramate [From Topamax] AdvReac Intermediate "FINGERS Verified 12/01/21 10:22 NUMB" tramadol [From Ultram] AdvReac Intermediate Vomiting Verified 12/01/21 10:22 clindamycin AdvReac Mild Nausea Verified 12/01/21 10:22 codeine AdvReac Mild SICK TO Verified 12/01/21 10:22 STOMACH Quinolones AdvReac Mild N&V Verified 12/01/21 10:22 Home Medications Medication Instructions Recorded Confirmed Type denosumab 60 mg/mL subcutaneous 1 dose SUBCUT Q180D 01/14/19 12/01/21 History syringe (Prolia) sumatriptan succinate 100 mg tablet 100 mg PO DAILY PRN 01/14/19 12/01/21 History terazosin 1 mg capsule 1 mg PO HS 08/29/19 12/01/21 History apixaban 2.5 mg tablet (Eliquis) 2.5 mg PO BID 02/02/20 12/01/21 History gabapentin 100 mg capsule 100 mg PO TID 02/02/20 12/01/21 History dicyclomine 10 mg capsule 10 mg PO QID PRN 06/06/20 12/01/21 History multivit with 1 tab PO QDL 06/22/20 12/01/21 History [id number]-EE-lutein 8 mg iron-400 mcg-300 mcg tablet (Centrum Silver Women) acetaminophen 325 mg tablet 650 mg PO Q6 PRN 08/03/20 12/01/21 History (Tylenol) metoprolol tartrate 25 mg tablet 25 mg PO HS 10/13/20 12/01/21 History metoprolol tartrate 25 mg tablet 50 mg PO QAM 10/13/20 12/01/21 History cholecalciferol (vitamin D3) 25 50 mcg PO QDL 01/21/21 12/01/21 History mcg (1,000 unit) capsule (Vitamin D3) omeprazole 40 mg capsule,delayed 40 mg PO DAILYBB 01/21/21 12/01/21 History release rosuvastatin 5 mg tablet 5 mg PO HS 10/06/21 12/01/21 History ciprofloxacin HCl 500 mg tablet 500 mg PO BID 12/01/21 12/01/21 History ropinirole 0.25 mg tablet 0.25 mg PO HS 12/01/21 12/01/21 History Patient History Medical History Diverticulosis Gastroparesis GERD (gastroesophageal reflux disease) History of skin cancer Hyperlipidemia Hypertension Migraines On anticoagulant therapy Pacemaker Paroxysmal atrial fibrillation Sensorineural hearing loss (SNHL) of both ears Tachy-michael syndrome Thoracic aortic aneurysm Mildly dilated on echo 02/2019 per cardiology, but not seen on 08/2019 echo at [facility]. Surgical History History of breast biopsy History of cataract surgery History of cholecystectomy 02/02/2020; [facility]; MAC #3, ETT 7.0. No complications. History of cystoscopy W/ STONE EXTRACTION History of ERCP with stone removal and stent placement 02/28 [place] History of lumbar surgery History of Mohs micrographic surgery for skin cancer History of tooth extraction Status post trigger finger release Family History Other Coronary heart disease No family history of adverse response to anesthesia Social History Smoking Status: Never smoker Second Hand Exposure: No; Hx Alcohol Use: No Hx Substance Use: No Preferred Language: Tamaz[place] Communication Ability: Effective Sales Order Administrator Required: No Beliefs That Will Affect Care: None marital status: / Current Living Situation: Alone Feels Safe at Home: Yes Assistive Devices: Glasses Review of Systems Review of Systems: All systems reviewed & are unremarkable except as noted in HPI & below Physical Exam Constitutional: WD/WN, vitals as above Eyes: PERRL, conjunctivae normal, anicteric sclerae Neck: trachea midline, no thyromegaly Respiratory: normal respiratory effort, lungs clear to auscultation Cardiovascular: RRR, no murmur, no edema Gastrointestinal (Abdomen): Inspection/Auscultation: abdomen normal to inspection and + abdomen distended (Mild distention) Percussion/Palpation: + abdomen tender (Left lower quadrant) and abdomen soft; no guarding and abdomen not rigid Musculoskeletal: Extremities: no cyanosis and no clubbing Skin: no rashes, warm and dry Psychiatric: A+Ox3, euthymic affect Results & Data ([facility]) Vital Signs (Past 12 Hours) Vital Signs Temp Pulse Pulse Resp BP BP Pulse Ox 12/01/21 12:00 162/104 H 96 12/01/21 11:37 97 12/01/21 10:30 94 H 23 146/91 H 12/01/21 10:00 100 H 23 148/88 H 95 12/01/21 09:30 94 H 23 133/76 93 12/01/21 09:00 93 H 21 110/72 95 12/01/21 08:41 97 H 16 97 12/01/21 08:39 98 H 23 97 12/01/21 08:30 99 H 16 132/90 97 12/01/21 08:19 36.2 C L 90 20 122/78 97 Laboratory Results 12/01/21 12/01/21 12/01/21 Range/Units 11:31 10:35 08:40 WBC (4.8-10.8) K/uL RBC (4.2-5.4) M/uL Hgb (12.0-16.0) g/dL Hct (37-47) % MCV (80-100) fL MCH (25-34) pg MCHC (32-36) g/dL RDW Std Deviation (36.4-46.3) fL RDW Coeff of Ling (11.5-14.5) % Plt Count (130-400) K/uL MPV (7.4-10.4) fL Immature Gran % (Auto) % Neut % (Auto) % Lymph % (Auto) % [place] % (Auto) % Eos % (Auto) % Baso % (Auto) % Neut # (Auto) (1.4-6.5) K/uL Lymph # (Auto) (1.2-3.4) K/uL [place] # (Auto) (0.11-0.59) K/uL Eos # (Auto) (0-0.5) K/uL Baso # (Auto) (0-0.2) K/uL Immature Gran # (Auto) (0.00-0.02) K/uL Sodium 137 (136-145) mmol/L Potassium 3.6 (3.5-5.1) mmol/L Chloride 103 (98-107) mmol/L Carbon Dioxide 23 (21-32) mmol/L Anion Gap 11 (3-11) BUN 17 (6-23) mg/dl Creatinine 0.71 (0.6-1.2) mg/dl Est Cr Clr Drug Dosing 43.7 ml/min Est GFR ( Amer) 90.0 ml/min Est GFR (Non-Af Amer) 77.7 ml/min BUN/Creatinine Ratio 23.9 H (10-20) Glucose 129 H (70-99(Fasting)) mg/dl Calcium 9.0 (8.5-10.1) mg/dl Total Bilirubin 0.7 (0.2-1.0) mg/dl AST 20 (13-39) U/L ALT 20 (7-52) U/L Alkaline Phosphatase 86 (34-104) U/L Total Protein 7.3 (6.0-8.3) gm/dl Albumin 4.0 (3.4-5.0) gm/dl Globulin 3.3 (2.5-4.0) gm/dl Albumin/Globulin Ratio 1.2 (0.9-2) Lipase 18 (11-82) U/L Urine Color Yellow Urine Appearance Clear (Clear) Urine pH 7.5 (4.5-7.5) Ur Specific [place] 1.007 (1.000-1.030) Urine Protein Negative (Negative) Urine Glucose (UA) Negative (Negative) Urine Ketones Negative (Negative) Urine Blood Negative (Negative) Urine Nitrite Negative (Negative) Urine Bilirubin Negative (Negative) Urine Urobilinogen Negative (Negative) Ur Leukocyte Esterase Negative (Negative) SARS-CoV-2, RNA, NAAT NEGATIVE (NEGATIVE) 12/01/21 Range/Units 08:40 WBC 10.48 (4.8-10.8) K/uL RBC 3.99 L (4.2-5.4) M/uL Hgb 12.2 (12.0-16.0) g/dL Hct 37.0 (37-47) % MCV 92.7 (80-100) fL MCH 30.6 (25-34) pg MCHC 33.0 (32-36) g/dL RDW Std Deviation 45.1 (36.4-46.3) fL RDW Coeff of Ling 13.3 (11.5-14.5) % Plt Count 288 (130-400) K/uL MPV 9.5 (7.4-10.4) fL Immature Gran % (Auto) 0.4 % Neut % (Auto) 77.8 % Lymph % (Auto) 12.7 % [place] % (Auto) 7.8 % Eos % (Auto) 1.1 % Baso % (Auto) 0.2 % Neut # (Auto) 8.15 H (1.4-6.5) K/uL Lymph # (Auto) 1.33 (1.2-3.4) K/uL [place] # (Auto) 0.82 H (0.11-0.59) K/uL Eos # (Auto) 0.12 (0-0.5) K/uL Baso # (Auto) 0.02 (0-0.2) K/uL Immature Gran # (Auto) 0.04 H (0.00-0.02) K/uL Sodium (136-145) mmol/L Potassium (3.5-5.1) mmol/L Chloride (98-107) mmol/L Carbon Dioxide (21-32) mmol/L Anion Gap (3-11) BUN (6-23) mg/dl Creatinine (0.6-1.2) mg/dl Est Cr Clr Drug Dosing ml/min Est GFR ( Amer) ml/min Est GFR (Non-Af Amer) ml/min BUN/Creatinine Ratio (10-20) Glucose (70-99(Fasting)) mg/dl Calcium (8.5-10.1) mg/dl Total Bilirubin (0.2-1.0) mg/dl AST (13-39) U/L ALT (7-52) U/L Alkaline Phosphatase (34-104) U/L Total Protein (6.0-8.3) gm/dl Albumin (3.4-5.0) gm/dl Globulin (2.5-4.0) gm/dl Albumin/Globulin Ratio (0.9-2) Lipase (11-82) U/L Urine Color Urine Appearance (Clear) Urine pH (4.5-7.5) Ur Specific [place] (1.000-1.030) Urine Protein (Negative) Urine Glucose (UA) (Negative) Urine Ketones (Negative) Urine Blood (Negative) Urine Nitrite (Negative) Urine Bilirubin (Negative) Urine Urobilinogen (Negative) Ur Leukocyte Esterase (Negative) SARS-CoV-2, RNA, NAAT (NEGATIVE) Diagnostic Findings CT abd pelvis IV con only CLINICAL HISTORY: abd pain w/ diverticulitis worse TECHNIQUE: Helical axial images of the abdomen and pelvis were obtained and displayed. Automated dose lowering techniques and/or adjustment according to patient size were utilized for this exam. This exam was performed with intravenous contrast. COMPARISON: Comparison is made to CT abdomen pelvis 01/21/2021 FINDINGS: Lower chest: Trace atelectasis versus scarring is seen. Cardiomegaly is partially visualized. Liver: Unremarkable. No focal lesions are seen. Gallbladder and biliary tree: Patient is status post cholecystectomy. Physiologic prominence of the common bile duct is seen measuring approximately 8 mm in diameter. Pneumobilia is seen. Pancreas: Unremarkable, no focal lesions. Spleen: Unremarkable. Adrenals: Unremarkable. Kidneys and ureters: Bilateral cysts are seen in the kidneys. Bladder: Unremarkable. Reproductive organs: Unremarkable. Bowel: Severe wall thickening and fat stranding is seen about the sigmoid colon compatible with acute diverticulitis. There is a gas and fluid collection adjacent to the sigmoid colon measuring approximately 3.2 x 1.3 cm compatible with contained rupture/abscess. Lymph nodes Retroperitoneal: Unremarkable. Mesenteric: Subcentimeter lymph nodes are noted. Pelvic: Unremarkable. Peritoneum: There is a small amount of free fluid layering in the pelvis as well as the fat stranding around the sigmoid colon mentioned above. Vessels: Atherosclerotic calcifications are seen. Abdominal wall: Unremarkable. Bones: Degenerative changes in the visualized spine. IMPRESSION: 1. Acute diverticulitis is seen. There is a gas and fluid collection adjacent to this finding compatible with contained rupture and/or abscess. 2. Additional findings as above.
[2021-12-01] MEDS ORDERED: HEPARIN 25000 UNIT/500 ML D5W IV ONE (13:39)
[2021-12-01] MEDS: HEPARIN SODIUM/DEXTROSE 25,000 UNITS/500 ML BAG IV SCH (13:43)
[2021-12-01] MEDS: Heparin IV Adult Wt-Based Low-Dose *NO* Bolus Protocol IV SCH (13:44)
[2021-12-01 13:46] LABS: INR 1.1 (0.9-1.1); Prothrombin Time 10.8 Seconds (9.0-12.0)
[2021-12-01] MEDS ORDERED: ACETAMINOPHEN 325 MG TAB PO SCH (14:38)
[2021-12-01] MEDS: MoRPHine SULFATE 4 MG/ML 1 ML CARP\\VIAL IV PRN (15:01)
[2021-12-01] MEDS: D5W AND NSS 1,000 ML IV SCH (15:04)
[2021-12-01] MEDS: GABAPENTIN 100 MG CAP PO SCH ×2 (16:31→21:20)
[2021-12-01] MEDS: ACETAMINOPHEN 325 MG TAB PO SCH ×2 (16:31→19:48)
[2021-12-01 19:34] LABS: Partial Thromboplastin Ratio 1.4; Partial Thromboplastin Time 36.2 Seconds (21.0-31.0)
[2021-12-01] MEDS ORDERED: HEPARIN SOD (PORCINE) 1000 UNIT/ML IV ONE (20:18)
[2021-12-01] MEDS ORDERED: HEPARIN IV BOLUS 2,000 UNITS in SYRINGE 0 ML IV ONE (21:00)
[2021-12-01] MEDS: ROSUVASTATIN CALCIUM 5 MG TAB PO SCH (21:20)
[2021-12-01] MEDS: TERAZOSIN HCL 1 MG CAP PO SCH (21:20)
[2021-12-01] MEDS: rOPINIRole HCL 0.25 MG TABLET PO SCH (21:20)
[2021-12-01] MEDS: METOPROLOL TARTRATE 25 MG TAB PO SCH (21:21)
[2021-12-02] MEDS: ACETAMINOPHEN 325 MG TAB PO SCH ×4 (00:02→17:57)
[2021-12-02] MEDS: CEFEPIME 2,000 MG in SYRINGE 0 ML IV SCH ×2 (00:02→10:52)
[2021-12-02] MEDS: D5W AND NSS 1,000 ML IV SCH ×3 (00:08→21:16)
[2021-12-02] MEDS ORDERED: SUMAtriptan succinate 50 MG TAB PO STA ×2 (03:02→23:41)
[2021-12-02 03:06] LABS: Hemoglobin 11.3 g/dL (12.0-16.0); Mean Corpuscular Hemoglobin 30.3 pg (25-34); Mean Corpuscular Hgb Conc 32.3 g/dL (32-36); Mean Corpuscular Volume 93.8 fL (80-100); Mean Platelet Volume 9.1 fL (7.4-10.4); Platelet Count 224 K/uL (130-400); RDW Coefficient of Variation 13.5 % (11.5-14.5); RDW Standard Deviation 46.8 fL (36.4-46.3); Red Blood Count 3.73 M/uL (4.2-5.4); White Blood Count 8.67 K/uL (4.8-10.8)
[2021-12-02 03:29] LABS: BUN Creatinine Ratio 18.3 (10-20); Calcium 7.4 mg/dl (8.5-10.1); Creatinine Clr Calc Pharmacy 43.7 ml/min; Est GFR (Non-African American) 77.7 ml/min; Potassium 3.7 mmol/L (3.5-5.1)
[2021-12-02 03:30] LABS: Partial Thromboplastin Time 51.5 Seconds (21.0-31.0)
[2021-12-02] MEDS: PANTOprazole 40 MG TAB PO SCH (06:08)
[2021-12-02] MEDS: METOPROLOL TARTRATE 50 MG TAB PO SCH (08:23)
[2021-12-02] MEDS: GABAPENTIN 100 MG CAP PO SCH ×3 (08:23→20:20)
[2021-12-02] MEDS: ONDANSETRON INJ 2 MG/ML 2 ML VIAL IV PRN (12:30)
--- NOTE | 2021-12-02 12:58 | Surgery Progress Note ---
Date of Service December 02, 2021 Assessment & Plan (1) Acute diverticulitis: (2) Tachy-michael syndrome: (3) Paroxysmal atrial fibrillation: Plan: 86-year-old woman with acute sigmoid diverticulitis with contained perforation and small abscess. afebrile, vss no leukocytosis abdomen is soft but tender in lower abdomen bilaterally Plan: Continue conservative measures at this time. Clear liquids IV antibiotics pain management as needed will continue to follow Dr. Montes has seen and examined pt, agrees with above. Admission and Anticipated Discharge Date Admission Date: December 01, 2021 Subjective feeling better still having pain slightly improved no nausea or vomiting Physical Exam Constitutional: WD/WN, vitals as above no acute distress and not ill appearing Neck: normal visual inspection and trachea midline Respiratory: normal respiratory effort; no respiratory distress Gastrointestinal (Abdomen): Inspection/Auscultation: abdomen normal to inspection; abdomen not distended Percussion/Palpation: + abdomen tender (lower abdomen bilaterally) and abdomen soft; no guarding and abdomen not rigid Skin: no rashes, warm and dry Psychiatric: A+Ox3, euthymic affect Results & Data ([facility]) Vital Signs (Past 12 Hours) Vital Signs Temp Pulse Resp BP Pulse Ox 12/02/21 10:49 36.2 C L 73 16 139/76 95 12/02/21 07:18 36.9 C 62 16 128/69 93 Laboratory Results 12/02/21 12/02/21 12/02/21 Range/Units 02:51 02:51 02:51 WBC 8.67 (4.8-10.8) K/uL RBC 3.73 L (4.2-5.4) M/uL Hgb 11.3 L (12.0-16.0) g/dL Hct 35.0 L (37-47) % MCV 93.8 (80-100) fL MCH 30.3 (25-34) pg MCHC 32.3 (32-36) g/dL RDW Std Deviation 46.8 H (36.4-46.3) fL RDW Coeff of Ling 13.5 (11.5-14.5) % Plt Count 224 (130-400) K/uL MPV 9.1 (7.4-10.4) fL PT (9.0-12.0) Seconds INR (0.9-1.1) APTT 51.5 H* (21.0-31.0) Seconds PTT Ratio 2.0 Sodium 136 (136-145) mmol/L Potassium 3.7 (3.5-5.1) mmol/L Chloride 107 (98-107) mmol/L Carbon Dioxide 24 (21-32) mmol/L Anion Gap 5 (3-11) BUN 13 (6-23) mg/dl Creatinine 0.71 (0.6-1.2) mg/dl Est Cr Clr Drug Dosing 43.7 ml/min Est GFR ( Amer) 90.0 ml/min Est GFR (Non-Af Amer) 77.7 ml/min BUN/Creatinine Ratio 18.3 (10-20) Glucose 155 H (70-99(Fasting)) mg/dl Calcium 7.4 L (8.5-10.1) mg/dl 12/01/21 12/01/21 Range/Units 19:11 13:22 WBC (4.8-10.8) K/uL RBC (4.2-5.4) M/uL Hgb (12.0-16.0) g/dL Hct (37-47) % MCV (80-100) fL MCH (25-34) pg MCHC (32-36) g/dL RDW Std Deviation (36.4-46.3) fL RDW Coeff of Ling (11.5-14.5) % Plt Count (130-400) K/uL MPV (7.4-10.4) fL PT 10.8 (9.0-12.0) Seconds INR 1.1 (0.9-1.1) APTT 36.2 H (21.0-31.0) Seconds PTT Ratio 1.4 Sodium (136-145) mmol/L Potassium (3.5-5.1) mmol/L Chloride (98-107) mmol/L Carbon Dioxide (21-32) mmol/L Anion Gap (3-11) BUN (6-23) mg/dl Creatinine (0.6-1.2) mg/dl Est Cr Clr Drug Dosing ml/min Est GFR ( Amer) ml/min Est GFR (Non-Af Amer) ml/min BUN/Creatinine Ratio (10-20) Glucose (70-99(Fasting)) mg/dl Calcium (8.5-10.1) mg/dl
[2021-12-02] MEDS: MoRPHine SULFATE 4 MG/ML 1 ML CARP\\VIAL IV PRN ×2 (13:30→17:27)
[2021-12-02] MEDS ORDERED: ALUMINUM/MAGNESIUM SUSP 30 ML UDC PO STA (13:38)
[2021-12-02] MEDS ORDERED: ALUMINUM/MAGNESIUM/SIMETH (MAALOX MAX) 30 ML UDC PO PRN (16:22)
[2021-12-02] MEDS: PROMETHAZINE HCL 6.25 MG in SODIUM CHLORIDE 0.9% 50 ML IV PRN (17:27)
[2021-12-02] MEDS: TERAZOSIN HCL 1 MG CAP PO SCH (20:19)
[2021-12-02] MEDS: ROSUVASTATIN CALCIUM 5 MG TAB PO SCH (20:20)
[2021-12-02] MEDS: rOPINIRole HCL 0.25 MG TABLET PO SCH (20:20)
[2021-12-02] MEDS: METOPROLOL TARTRATE 25 MG TAB PO SCH (20:20)
[2021-12-03] MEDS: ACETAMINOPHEN 325 MG TAB PO SCH ×5 (00:08→23:56)
[2021-12-03] MEDS: CEFEPIME 2,000 MG in SYRINGE 0 ML IV SCH ×3 (00:08→23:57)
--- NOTE | 2021-12-03 01:44 | Hospitalist Progress Note ---
Date of Service December 02, 2021 Assessment & Plan (1) Acute diverticulitis: Plan: Patient presenting from home with reports of left lower quadrant abdominal pain and nausea. CT ABD/pelvis on admission showed acute diverticulitis with a gas and fluid collection adjacent to this finding compatible with contained rupture and/or abscess. Patient is afebrile, no leukocytosis, hemodynamically stable Currently on IV cefepime Surgery on board recommend conservative management with IV antibiotic Continue clear liquid diet We will get a KUB of the abdomen due to severe abdominal pain, constipation nausea (2) Paroxysmal atrial fibrillation: Plan: -Rate controlled on metoprolol -Anticoagulated on Eliquis - due to possible need for OR, patient was placed on IV heparin drip, will continue for now (3) Tachy-michael syndrome: (4) Pacemaker: Plan: -No acute issues (5) Hypertension: Plan: -BP mildly elevated, likely situational/due to pain -continue metoprolol and terazosin (6) DVT prophylaxis: Plan: -on IV heparin as above Admission and Anticipated Discharge Date Admission Date: December 01, 2021 Subjective Patient was seen and examined for follow-up of abdominal pain due to acute diverticulitis Lying in bed with no acute distress Patient said that she continues to have pain in her abdomen. She said her pain radiated into right upper part of her back She continued to feel nauseated She has not had any bowel movement in the last 3 days Denies any chest pain, palpitation, dizziness, shortness of breath. Review of Systems Review of Systems: All systems reviewed & are unremarkable except as noted in Subjective Physical Exam Physical Exam: General- No acute distress Head- atraumatic Eyes- PERRL, EOMI, ENT- oropharynx clear Neck- supple, no JVD Lungs- clear to auscultation Heart- regular rhythm; no murmur Abdomen- normal bowel sounds,+tender Extremities- no calf tenderness Neuro- alert, oriented x 3; PERRL, EOMI; no facial palsy; no dysarthria Skin- warm & dry Results & Data Results & Data ([facility]) Vital Signs (Past 12 Hours) Vital Signs Temp Pulse Pulse Resp BP BP Pulse Ox 12/02/21 23:49 36.8 C 70 18 126/70 98 12/02/21 20:17 77 148/74 H 12/02/21 15:29 36.8 C 81 17 135/70 97 (1) Hypertension Hypertension type: essential hypertension Qualified Code(s): I10 - Essential (primary) hypertension
[2021-12-03] MEDS: HEPARIN SODIUM/DEXTROSE 25,000 UNITS/500 ML BAG IV SCH ×2 (02:32→15:23)
[2021-12-03] MEDS: PANTOprazole 40 MG TAB PO SCH (05:55)
[2021-12-03] MEDS: MoRPHine SULFATE 4 MG/ML 1 ML CARP\\VIAL IV PRN ×2 (06:03→12:40)
[2021-12-03] MEDS: D5W AND NSS 1,000 ML IV SCH ×2 (07:22→17:21)
[2021-12-03 07:50] LABS: Hematocrit (blood only) 36.7 % (37-47); Hemoglobin 11.7 g/dL (12.0-16.0); Mean Corpuscular Hgb Conc 31.9 g/dL (32-36); Mean Corpuscular Volume 94.1 fL (80-100); Mean Platelet Volume 9.7 fL (7.4-10.4); Platelet Count 267 K/uL (130-400); RDW Coefficient of Variation 13.3 % (11.5-14.5); RDW Standard Deviation 45.8 fL (36.4-46.3); White Blood Count 7.34 K/uL (4.8-10.8)
[2021-12-03 07:51] LABS: Partial Thromboplastin Ratio 1.6; Partial Thromboplastin Time 42.1 Seconds (21.0-31.0)
[2021-12-03 08:11] LABS: BUN Creatinine Ratio 10.6 (10-20); Calcium 7.8 mg/dl (8.5-10.1); Est GFR (African American) 93.4 ml/min; Est GFR (Non-African American) 80.6 ml/min; Potassium 3.5 mmol/L (3.5-5.1)
--- NOTE | 2021-12-03 08:54 | XRay Report ---
KUB HISTORY: Acute generalized abdominal pain abdominal pain COMPARISON: CT abdomen pelvis 12/01/2021 FINDINGS: Nonobstructive bowel gas pattern. Cholecystectomy. Moderate fecal retention. The renal sha dows are obscured by bowel gas. The patient's known right nephrolithiasis are not identified. No pneu moperitoneum or pneumatosis. Degenerative changes of the spine, pelvis and hips. Cardiac pacer with c ardiomegaly. No fracture. IMPRESSION: 1. Nonobstructive bowel gas pattern. 2. Moderate fecal retention. 3. The renal shadows are obscured by bowel gas. The patient's known right nephrolithiasis are not karely ntified. ACT 112: Negative or not required by law. The above report was generated using voice recognition software. It may contain grammatical, syntax o r spelling errors. Electronically signed by: Roe Joseph M.D. 12/03/2021 8:52 AM
[2021-12-03] MEDS: GABAPENTIN 100 MG CAP PO SCH ×4 (09:07→20:45)
[2021-12-03] MEDS: METOPROLOL TARTRATE 50 MG TAB PO SCH (09:07)
[2021-12-03] MEDS: ONDANSETRON INJ 2 MG/ML 2 ML VIAL IV PRN (10:02)
--- NOTE | 2021-12-03 10:11 | Surgery Progress Note ---
Date of Service December 03, 2021 Assessment & Plan (1) Acute diverticulitis: (2) Tachy-michael syndrome: (3) Paroxysmal atrial fibrillation: Plan: 86-year-old woman with acute sigmoid diverticulitis with contained perforation and small abscess. afebrile, vss no leukocytosis abdomen is soft, mildly distended today, tenderness in LLQ improved, RUQ/flank pain KUB showing moderate fecal retention in right colon + nausea and vomiting today Plan: Continue conservative measures at this time. sips of clears okay continue IV antibiotics pain management as needed, limit narcotics given constipation on KUB bowel regimen OOB to chair and ambulate will continue to follow Dr. Montes has seen and examined pt, agrees with above. Admission and Anticipated Discharge Date Admission Date: December 01, 2021 Subjective not feeling well today having right upper and side pain that goes around to her back, thought maybe she had a kidney stone went for x-ray this morning and then had episode of vomiting + nausea passing small amount of flatus, no bowel movement in a couple of days, usually has bowel movement daily left lower abdominal pain has improved Physical Exam Constitutional: well developed and well nourished; no acute distress and not ill appearing Neck: normal visual inspection and trachea midline Respiratory: normal respiratory effort; no respiratory distress Gastrointestinal (Abdomen): Inspection/Auscultation: abdomen normal to inspection and + abdomen distended Percussion/Palpation: + abdomen tender (Right upper abdomen and right flank) and abdomen soft; no guarding and abdomen not rigid Skin: no rashes, warm and dry Psychiatric: A+Ox3, euthymic affect Results & Data ([facility]) Vital Signs (Past 12 Hours) Vital Signs Temp Pulse Resp BP BP Pulse Ox 12/03/21 07:16 36.6 C 76 16 143/78 H 97 12/02/21 23:49 36.8 C 70 18 126/70 98 Laboratory Results 12/03/21 12/03/21 12/03/21 Range/Units 06:38 06:38 06:38 WBC 7.34 (4.8-10.8) K/uL RBC 3.90 L (4.2-5.4) M/uL Hgb 11.7 L (12.0-16.0) g/dL Hct 36.7 L (37-47) % MCV 94.1 (80-100) fL MCH 30.0 (25-34) pg MCHC 31.9 L (32-36) g/dL RDW Std Deviation 45.8 (36.4-46.3) fL RDW Coeff of Ling 13.3 (11.5-14.5) % Plt Count 267 (130-400) K/uL MPV 9.7 (7.4-10.4) fL APTT 42.1 H (21.0-31.0) Seconds PTT Ratio 1.6 Sodium 139 (136-145) mmol/L Potassium 3.5 (3.5-5.1) mmol/L Chloride 108 H (98-107) mmol/L Carbon Dioxide 25 (21-32) mmol/L Anion Gap 6 (3-11) BUN 7 (6-23) mg/dl Creatinine 0.66 (0.6-1.2) mg/dl Est Cr Clr Drug Dosing 47.0 ml/min Est GFR ( Amer) 93.4 ml/min Est GFR (Non-Af Amer) 80.6 ml/min BUN/Creatinine Ratio 10.6 (10-20) Glucose 130 H (70-99(Fasting)) mg/dl Calcium 7.8 L (8.5-10.1) mg/dl Magnesium 2.0 (1.7-2.4) mg/dl Diagnostic Findings KUB HISTORY: Acute generalized abdominal pain abdominal pain COMPARISON: CT abdomen pelvis 12/01/2021 FINDINGS: Nonobstructive bowel gas pattern. Cholecystectomy. Moderate fecal retention. The renal shadows are obscured by bowel gas. The patient's known right nephrolithiasis are not identified. No pneumoperitoneum or pneumatosis. Degenerative changes of the spine, pelvis and hips. Cardiac pacer with cardiomegaly. No fracture. IMPRESSION: 1. Nonobstructive bowel gas pattern. 2. Moderate fecal retention. 3. The renal shadows are obscured by bowel gas. The patient's known right nephrolithiasis are not identified.
[2021-12-03] MEDS ORDERED: bisacodyL 5 MG TABEC PO ONE (10:12)
[2021-12-03] MEDS ORDERED: POLYETHYLENE (MIRALAX) 17 GM PACK PO ONE (10:13)
[2021-12-03] MEDS: PROMETHAZINE HCL 6.25 MG in SODIUM CHLORIDE 0.9% 50 ML IV PRN ×2 (11:51→13:46)
[2021-12-03 14:03] LABS: Partial Thromboplastin Ratio 1.6; Partial Thromboplastin Time 41.9 Seconds (21.0-31.0)
--- NOTE | 2021-12-03 15:10 | Hospitalist Progress Note ---
Date of Service December 03, 2021 Assessment & Plan (1) Acute diverticulitis: Plan: CT ABD/pelvis on admission showed acute diverticulitis with a gas and fluid collection adjacent to this finding compatible with contained rupture and/or abscess Patient is afebrile, no leukocytosis, hemodynamically stable Currently on IV cefepime Surgery on board recommend conservative management with IV antibiotic Advanced to clears, having some nausea with vomiting, improved with antiemetics KUB of nonobstructive bowel gas pattern. Moderate fecal retention. The renal shadows are obscured by bowel gas. The patient's known right nephrolithiasis are not identified Bowel regimen started this morning Considering additional imaging for renal stones if pain remains after resolution of constipation (2) Paroxysmal atrial fibrillation: Plan: Rate controlled on metoprolol Anticoagulated on Eliquis - due to possible need for OR, patient was placed on IV heparin drip, will continue for now (3) Tachy-michael syndrome: (4) Pacemaker: Plan: No acute issues (5) Hypertension: Plan: BP mildly elevated, likely situational/due to pain Continue metoprolol and terazosin (6) DVT prophylaxis: Plan: On IV heparin as above Patient seen in collaboration with Dr. Pineda. Please see addendum. Admission and Anticipated Discharge Date Admission Date: December 01, 2021 Supervising Physician Co-Signing Physician Notes Pt was seen and examined. Agreed with Dorcas COMBS exam, assessment and plan. Lying in bed with no acute distress. She said that her pain is mostly on the right upper quadrant border radiating to her back. She has not had a bowel movement. Denies any fever, palpitation and SOB. Exam Gen: WD/WN, NAD, lying in bed, A&Ox3 HEENT: Normocephalic, atraumatic Lung: Clear to Auscultation bilaterally, no wheezes/rales/rhonchi Heart: Regular rate, regular rhythm Abdomen: R upper abdomen TTP with extension to R flank. Mild distension, no guarding +BS x 4 : R CVA TTP Extremities: no edema Skin: Warm, no rash A/P (1) Acute diverticulitis: Patient presenting from home with reports of left lower quadrant abdominal pain and nausea. CT ABD/pelvis on admission showed acute diverticulitis with a gas and fluid collection adjacent to this finding compatible with contained rupture and/or abscess. Patient is afebrile, no leukocytosis, hemodynamically stable Currently on IV cefepime Surgery on board recommend conservative management with IV antibiotic Continue clear liquid diet We will consider to get a KUB of the abdomen due to severe abdominal pain, constipation nausea Continue monitor closely Please refer to Dorcas COMBS documentation for other problems MD Miriam Subjective Seen and examined in [id number]. Lower abdominal pain has resolved but having constant right upper quadrant pain under ribs and wrapping around to back. Endorses nausea with 2 episodes of vomiting this morning made better with antiemetics. KUB without obstruction but showing moderate fecal retention in right colon. Started on bowel regimen. No fever, chills, chest pain, shortness of breath, dysuria or hematuria. Surgery continuing to follow, recommending conservative measures. Review of Systems Review of Systems: At least ten systems reviewed and negative except as noted in the HPI. Physical Exam Physical Exam: Gen: WD/WN, NAD, lying in bed, A&Ox3 HEENT: Normocephalic, atraumatic, conjunctivae moist, sclerae anicteric, mucous membranes moist Lung: Clear to Auscultation bilaterally, no wheezes/rales/rhonchi Heart: Regular rate, regular rhythm, no murmurs, rubs, or gallops Abdomen: R upper abdomen TTP with extension to R flank. Mild distension, no guarding +BS x 4 : R CVA TTP Extremities: no edema Skin: Warm, no rash Results & Data Results & Data ([facility]) Vital Signs (Past 12 Hours) Vital Signs Temp Pulse Resp BP Pulse Ox 12/03/21 07:16 36.6 C 76 16 143/78 H 97 Laboratory Results Short CBC 12/03/21 Range/Units 06:38 WBC 7.34 (4.8-10.8) K/uL Hgb 11.7 L (12.0-16.0) g/dL Hct 36.7 L (37-47) % Plt Count 267 (130-400) K/uL BMP 12/03/21 06:38 Sodium 139 Potassium 3.5 Chloride 108 H Carbon Dioxide 25 BUN 7 Creatinine 0.66 Glucose 130 H Calcium 7.8 L Diagnostic Findings Abdomen/Pelvis CT 12/01/21 08:23 CT abd pelvis IV con only CLINICAL HISTORY: abd pain w/ diverticulitis worse TECHNIQUE: Helical axial images of the abdomen and pelvis were obtained and displayed. Automated dose lowering techniques and/or adjustment according to patient size were utilized for this exam. This exam was performed with intravenous contrast. COMPARISON: Comparison is made to CT abdomen pelvis 01/21/2021 FINDINGS: Lower chest: Trace atelectasis versus scarring is seen. Cardiomegaly is partially visualized. Liver: Unremarkable. No focal lesions are seen. Gallbladder and biliary tree: Patient is status post cholecystectomy. Physiologic prominence of the common bile duct is seen measuring approximately 8 mm in diameter. Pneumobilia is seen. Pancreas: Unremarkable, no focal lesions. Spleen: Unremarkable. Adrenals: Unremarkable. Kidneys and ureters: Bilateral cysts are seen in the kidneys. Bladder: Unremarkable. Reproductive organs: Unremarkable. Bowel: Severe wall thickening and fat stranding is seen about the sigmoid colon compatible with acute diverticulitis. There is a gas and fluid collection adjacent to the sigmoid colon measuring approximately 3.2 x 1.3 cm compatible with contained rupture/abscess. Lymph nodes Retroperitoneal: Unremarkable. Mesenteric: Subcentimeter lymph nodes are noted. Pelvic: Unremarkable. Peritoneum: There is a small amount of free fluid layering in the pelvis as well as the fat stranding around the sigmoid colon mentioned above. Vessels: Atherosclerotic calcifications are seen. Abdominal wall: Unremarkable. Bones: Degenerative changes in the visualized spine. IMPRESSION: 1. Acute diverticulitis is seen. There is a gas and fluid collection adjacent to this finding compatible with contained rupture and/or abscess. 2. Additional findings as above. ACT 112: Negative or not required by law. Electronically signed by: Petros Gordon M.D. 12/01/2021 11:09 AM KUB X-Ray 12/03/21 07:00 KUB HISTORY: Acute generalized abdominal pain abdominal pain COMPARISON: CT abdomen pelvis 12/01/2021 FINDINGS: Nonobstructive bowel gas pattern. Cholecystectomy. Moderate fecal retention. The renal shadows are obscured by bowel gas. The patient's known right nephrolithiasis are not identified. No pneumoperitoneum or pneumatosis. Degenerative changes of the spine, pelvis and hips. Cardiac pacer with cardiomegaly. No fracture. IMPRESSION: 1. Nonobstructive bowel gas pattern. 2. Moderate fecal retention. 3. The renal shadows are obscured by bowel gas. The patient's known right nephrolithiasis are not identified. ACT 112: Negative or not required by law. The above report was generated using voice recognition software. It may contain grammatical, syntax or spelling errors. Electronically signed by: Roe Joseph M.D. 12/03/2021 8:52 AM (1) Hypertension Hypertension type: essential hypertension Qualified Code(s): I10 - Essential (primary) hypertension
[2021-12-03] MEDS ORDERED: SUMAtriptan succinate 50 MG TAB PO ONE (19:11)
[2021-12-03 20:34] LABS: Partial Thromboplastin Ratio 1.6; Partial Thromboplastin Time 42.4 Seconds (21.0-31.0)
[2021-12-03] MEDS: ROSUVASTATIN CALCIUM 5 MG TAB PO SCH (20:44)
[2021-12-03] MEDS: METOPROLOL TARTRATE 25 MG TAB PO SCH (20:45)
[2021-12-03] MEDS: rOPINIRole HCL 0.25 MG TABLET PO SCH (20:45)
[2021-12-03] MEDS: TERAZOSIN HCL 1 MG CAP PO SCH (20:45)
[2021-12-04] MEDS: MoRPHine SULFATE 4 MG/ML 1 ML CARP\\VIAL IV PRN (02:06)
[2021-12-04] MEDS: PROMETHAZINE HCL 6.25 MG in SODIUM CHLORIDE 0.9% 50 ML IV PRN (02:09)
[2021-12-04 02:50] LABS: Hematocrit (blood only) 37.7 % (37-47); Hemoglobin 12.4 g/dL (12.0-16.0); Mean Corpuscular Hemoglobin 30.3 pg (25-34); Mean Corpuscular Hgb Conc 32.9 g/dL (32-36); Mean Corpuscular Volume 92.2 fL (80-100); Platelet Count 259 K/uL (130-400); RDW Standard Deviation 43.9 fL (36.4-46.3); Red Blood Count 4.09 M/uL (4.2-5.4); White Blood Count 6.17 K/uL (4.8-10.8)
[2021-12-04 03:07] LABS: BUN Creatinine Ratio 9.8 (10-20); Creatinine Clr Calc Pharmacy 50.9 ml/min; Est GFR (African American) 95.8 ml/min; Est GFR (Non-African American) 82.7 ml/min
[2021-12-04] MEDS: D5W AND NSS 1,000 ML IV SCH ×3 (03:14→23:29)
[2021-12-04 03:15] LABS: Partial Thromboplastin Ratio 1.9
[2021-12-04 03:18] LABS: Partial Thromboplastin Time 49.5 Seconds (21.0-31.0)
[2021-12-04] MEDS ORDERED: POTASSIUM CHLORIDE CRTAB 20 MEQ TABCR PO STA ×2 (03:40→08:01)
[2021-12-04] MEDS ORDERED: MAGNESIUM SULFATE / D5W 1 GM/100 ML BAG IV ONE (04:14)
[2021-12-04] MEDS ORDERED: POTASSIUM CHLORIDE CRTAB 20 MEQ TABCR PO ONE (05:30)
[2021-12-04] MEDS: PANTOprazole 40 MG TAB PO SCH (06:15)
[2021-12-04] MEDS: ACETAMINOPHEN 325 MG TAB PO SCH ×4 (06:15→23:28)
[2021-12-04] MEDS: GABAPENTIN 100 MG CAP PO SCH ×3 (09:29→20:42)
[2021-12-04] MEDS: METOPROLOL TARTRATE 50 MG TAB PO SCH (09:30)
[2021-12-04] MEDS: HEPARIN SODIUM/DEXTROSE 25,000 UNITS/500 ML BAG IV SCH (10:02)
[2021-12-04] MEDS: POTASSIUM CHLORIDE / WTR 10 MEQ/100 ML PLCT IV SCH ×2 (10:03→10:51)
--- NOTE | 2021-12-04 10:39 | Surgery Progress Note ---
Date of Service December 04, 2021 Assessment & Plan (1) Acute diverticulitis: (2) Tachy-michael syndrome: (3) Paroxysmal atrial fibrillation: Plan: 86-year-old woman with acute sigmoid diverticulitis with contained perforation and small abscess. afebrile, vss no leukocytosis abdomen is soft, mildly distended today, tenderness in LLQ improved, RUQ/flank pain?? secondary to constipation KUB showing moderate fecal retention in right colon + nausea likely from narcotics Plan: Continue conservative measures at this time. clears okay continue IV antibiotics pain management as needed, limit narcotics given constipation on KUB bowel regimen, Miralax and dulcolax again today recommended OOB to chair and ambulate, highly encouraged patient to work on this today If patient has bowel movement and pain still persists may need to reimage abdomen Dr. Carranza covering this weekend Dr. Montes has seen and examined pt, agrees with above. Admission and Anticipated Discharge Date Admission Date: December 01, 2021 Supervising Physician Co-Signing Physician Notes I have seen and examined the patient personally. I agree with the exam/assessment/plan. Improving from diverticulitis standpoint. continues to have some right sided abdomen and back pain. Continue conservative management with aggressive bowel regimen. will continue to follow. Subjective LLQ abdominal pain has improved still having right upper/flank pain, came back around 1 am , needed Morphine Nausea with the Morphine bloated passing gas but no bowel movement yet has not been out of bed , only ambulating to bathroom feels full after minimal liquids Physical Exam Constitutional: WD/WN, vitals as above no acute distress and not ill appearing Respiratory: normal respiratory effort; no respiratory distress Gastrointestinal (Abdomen): Inspection/Auscultation: abdomen normal to inspection; abdomen not distended Percussion/Palpation: + abdomen tender (Right upper abdomen and right flank, LLQ tenderness improving) and abdomen soft; no guarding and abdomen not rigid Skin: no rashes, warm and dry Psychiatric: A+Ox3, euthymic affect Results & Data ([facility]) Vital Signs (Past 12 Hours) Vital Signs Temp Pulse Resp BP Pulse Ox 12/04/21 06:57 36.6 C 85 18 131/80 95 Laboratory Results 12/04/21 12/04/21 12/04/21 Range/Units 02:40 02:40 02:40 WBC (4.8-10.8) K/uL RBC (4.2-5.4) M/uL Hgb (12.0-16.0) g/dL Hct (37-47) % MCV (80-100) fL MCH (25-34) pg MCHC (32-36) g/dL RDW Std Deviation (36.4-46.3) fL RDW Coeff of Ling (11.5-14.5) % Plt Count (130-400) K/uL MPV (7.4-10.4) fL APTT 49.5 H* (21.0-31.0) Seconds PTT Ratio 1.9 Sodium 137 (136-145) mmol/L Potassium 3.0 L (3.5-5.1) mmol/L Chloride 106 (98-107) mmol/L Carbon Dioxide 25 (21-32) mmol/L Anion Gap 6 (3-11) BUN 6 (6-23) mg/dl Creatinine 0.61 (0.6-1.2) mg/dl Est Cr Clr Drug Dosing 50.9 ml/min Est GFR ( Amer) 95.8 ml/min Est GFR (Non-Af Amer) 82.7 ml/min BUN/Creatinine Ratio 9.8 L (10-20) Glucose 147 H (70-99(Fasting)) mg/dl Calcium 8.0 L (8.5-10.1) mg/dl Magnesium 1.9 (1.7-2.4) mg/dl 12/04/21 12/03/21 12/03/21 Range/Units 02:40 20:04 13:43 WBC 6.17 (4.8-10.8) K/uL RBC 4.09 L (4.2-5.4) M/uL Hgb 12.4 (12.0-16.0) g/dL Hct 37.7 (37-47) % MCV 92.2 (80-100) fL MCH 30.3 (25-34) pg MCHC 32.9 (32-36) g/dL RDW Std Deviation 43.9 (36.4-46.3) fL RDW Coeff of Ling 13.0 (11.5-14.5) % Plt Count 259 (130-400) K/uL MPV 9.0 (7.4-10.4) fL APTT 42.4 H 41.9 H (21.0-31.0) Seconds PTT Ratio 1.6 1.6 Sodium (136-145) mmol/L Potassium (3.5-5.1) mmol/L Chloride (98-107) mmol/L Carbon Dioxide (21-32) mmol/L Anion Gap (3-11) BUN (6-23) mg/dl Creatinine (0.6-1.2) mg/dl Est Cr Clr Drug Dosing ml/min Est GFR ( Amer) ml/min Est GFR (Non-Af Amer) ml/min BUN/Creatinine Ratio (10-20) Glucose (70-99(Fasting)) mg/dl Calcium (8.5-10.1) mg/dl Magnesium (1.7-2.4) mg/dl
[2021-12-04] MEDS ORDERED: bisacodyL 5 MG TABEC PO ONE (10:50)
[2021-12-04] MEDS ORDERED: POLYETHYLENE (MIRALAX) 17 GM PACK PO ONE (10:50)
[2021-12-04] MEDS: CEFEPIME 2,000 MG in SYRINGE 0 ML IV SCH ×2 (11:33→23:27)
--- NOTE | 2021-12-04 16:55 | Hospitalist Progress Note ---
Date of Service December 04, 2021 Assessment & Plan (1) Acute diverticulitis: Plan: CT ABD/pelvis on admission showed acute diverticulitis with a gas and fluid collection adjacent to this finding compatible with contained rupture and/or abscess Patient is afebrile, no leukocytosis, hemodynamically stable Currently on IV cefepime Surgery on board recommend conservative management with IV antibiotic Nausea and vomiting have subsided -> okay to advance to full liquids, per surgery KUB of nonobstructive bowel gas pattern. Moderate fecal retention. The renal shadows are obscured by bowel gas. The patient's known right nephrolithiasis are not identified Aggressive bowel regimen continued N/V and abdominal pain have subsided Considering additional imaging for renal stones if pain remains after resolution of constipation (2) Paroxysmal atrial fibrillation: Plan: Rate controlled on metoprolol Anticoagulated on Eliquis - due to possible need for OR, patient was placed on IV heparin drip, will continue for now (3) Tachy-michael syndrome: (4) Pacemaker: Plan: No acute issues (5) Hypertension: Plan: BP mildly elevated, likely situational/due to pain Continue metoprolol and terazosin (6) DVT prophylaxis: Plan: On IV heparin as above Patient seen in collaboration with Dr. Pineda. Please see addendum. Admission and Anticipated Discharge Date Admission Date: December 01, 2021 Supervising Physician Co-Signing Physician Notes Pt was seen and examined. Agreed with Dorcas COMBS exam, assessment and plan. Lying in bed with no acute distress. She said that her pain is mostly on the right upper quadrant border radiating to her back. She has not had a bowel movement. Denies any fever, palpitation and SOB. Exam Gen: WD/WN, NAD, lying in bed, A&Ox3 HEENT: Normocephalic, atraumatic Lung: Clear to Auscultation bilaterally, no wheezes/rales/rhonchi Heart: Regular rate, regular rhythm Abdomen: mild R upper abdomen TTP with extension to R flank. Mild distension, no guarding +BS x 4 : R CVA TTP Extremities: no edema Skin: Warm, no rash A/P (1) Acute diverticulitis: Patient presenting from home with reports of left lower quadrant abdominal pain and nausea. CT ABD/pelvis on admission showed acute diverticulitis with a gas and fluid collection adjacent to this finding compatible with contained rupture and/or abscess. KUB showed nonobstructive bowel gas pattern. Moderate fecal retention. Patient is afebrile, no leukocytosis, hemodynamically stable Currently on IV cefepime Surgery on board recommend conservative management with IV antibiotic Diet advanced slowly as tolerated Continue monitor closely Please refer to Dorcas COMBS documentation for other problems MD Miriam Subjective Seen and examined in [id number]. Nausea, vomiting and abdominal pain all resolved. Still without bowel movement but passing flatus. No fever, chills, chest pain, SOB, dysuria. Continuing bowel regimen. Review of Systems Review of Systems: At least ten systems reviewed and negative except as noted in the HPI. Physical Exam Physical Exam: Gen: WD/WN, NAD, lying in bed, A&Ox3 HEENT: Normocephalic, atraumatic, conjunctivae moist, sclerae anicteric, mucous membranes moist Lung: Clear to Auscultation bilaterally, no wheezes/rales/rhonchi Heart: Regular rate, regular rhythm, no murmurs, rubs, or gallops Abdomen: Soft, NT, ND, no guarding +BS x 4 Extremities: no edema Skin: Warm, no rash Results & Data Results & Data ([facility]) Vital Signs (Past 12 Hours) Vital Signs Temp Pulse Resp BP Pulse Ox 12/04/21 15:15 36.4 C L 74 18 147/69 H 96 12/04/21 06:57 36.6 C 85 18 131/80 95 Laboratory Results Short CBC 12/04/21 Range/Units 02:40 WBC 6.17 (4.8-10.8) K/uL Hgb 12.4 (12.0-16.0) g/dL Hct 37.7 (37-47) % Plt Count 259 (130-400) K/uL BMP 12/04/21 02:40 Sodium 137 Potassium 3.0 L Chloride 106 Carbon Dioxide 25 BUN 6 Creatinine 0.61 Glucose 147 H Calcium 8.0 L Diagnostic Findings Abdomen/Pelvis CT 12/01/21 08:23 CT abd pelvis IV con only CLINICAL HISTORY: abd pain w/ diverticulitis worse TECHNIQUE: Helical axial images of the abdomen and pelvis were obtained and displayed. Automated dose lowering techniques and/or adjustment according to patient size were utilized for this exam. This exam was performed with intravenous contrast. COMPARISON: Comparison is made to CT abdomen pelvis 01/21/2021 FINDINGS: Lower chest: Trace atelectasis versus scarring is seen. Cardiomegaly is partially visualized. Liver: Unremarkable. No focal lesions are seen. Gallbladder and biliary tree: Patient is status post cholecystectomy. Physiologic prominence of the common bile duct is seen measuring approximately 8 mm in diameter. Pneumobilia is seen. Pancreas: Unremarkable, no focal lesions. Spleen: Unremarkable. Adrenals: Unremarkable. Kidneys and ureters: Bilateral cysts are seen in the kidneys. Bladder: Unremarkable. Reproductive organs: Unremarkable. Bowel: Severe wall thickening and fat stranding is seen about the sigmoid colon compatible with acute diverticulitis. There is a gas and fluid collection adjacent to the sigmoid colon measuring approximately 3.2 x 1.3 cm compatible with contained rupture/abscess. Lymph nodes Retroperitoneal: Unremarkable. Mesenteric: Subcentimeter lymph nodes are noted. Pelvic: Unremarkable. Peritoneum: There is a small amount of free fluid layering in the pelvis as well as the fat stranding around the sigmoid colon mentioned above. Vessels: Atherosclerotic calcifications are seen. Abdominal wall: Unremarkable. Bones: Degenerative changes in the visualized spine. IMPRESSION: 1. Acute diverticulitis is seen. There is a gas and fluid collection adjacent to this finding compatible with contained rupture and/or abscess. 2. Additional findings as above. ACT 112: Negative or not required by law. Electronically signed by: Petros Gordon M.D. 12/01/2021 11:09 AM KUB X-Ray 12/03/21 07:00 KUB HISTORY: Acute generalized abdominal pain abdominal pain COMPARISON: CT abdomen pelvis 12/01/2021 FINDINGS: Nonobstructive bowel gas pattern. Cholecystectomy. Moderate fecal retention. The renal shadows are obscured by bowel gas. The patient's known right nephrolithiasis are not identified. No pneumoperitoneum or pneumatosis. Degenerative changes of the spine, pelvis and hips. Cardiac pacer with cardiomegaly. No fracture. IMPRESSION: 1. Nonobstructive bowel gas pattern. 2. Moderate fecal retention. 3. The renal shadows are obscured by bowel gas. The patient's known right nephrolithiasis are not identified. ACT 112: Negative or not required by law. The above report was generated using voice recognition software. It may contain grammatical, syntax or spelling errors. Electronically signed by: Roe Joseph M.D. 12/03/2021 8:52 AM (1) Hypertension Hypertension type: essential hypertension Qualified Code(s): I10 - Essential (primary) hypertension
[2021-12-04] MEDS: rOPINIRole HCL 0.25 MG TABLET PO SCH (20:40)
[2021-12-04] MEDS: ROSUVASTATIN CALCIUM 5 MG TAB PO SCH (20:40)
[2021-12-04] MEDS: TERAZOSIN HCL 1 MG CAP PO SCH (20:41)
[2021-12-04] MEDS: METOPROLOL TARTRATE 25 MG TAB PO SCH (20:41)
[2021-12-04] MEDS ORDERED: SUMAtriptan succinate 50 MG TAB PO STA (23:50)
[2021-12-05] MEDS: ACETAMINOPHEN 325 MG TAB PO SCH ×2 (05:57→12:12)
[2021-12-05] MEDS: PANTOprazole 40 MG TAB PO SCH (05:57)
[2021-12-05 06:09] LABS: Hematocrit (blood only) 37.2 % (37-47); Hemoglobin 12.2 g/dL (12.0-16.0); Mean Corpuscular Hemoglobin 30.5 pg (25-34); Mean Corpuscular Hgb Conc 32.8 g/dL (32-36); Mean Platelet Volume 9.5 fL (7.4-10.4); Platelet Count 283 K/uL (130-400); RDW Coefficient of Variation 13.4 % (11.5-14.5); RDW Standard Deviation 45.6 fL (36.4-46.3); White Blood Count 6.23 K/uL (4.8-10.8)
[2021-12-05 06:34] LABS: BUN Creatinine Ratio 7.9 (10-20); Calcium 7.8 mg/dl (8.5-10.1); Creatinine Clr Calc Pharmacy 49.3 ml/min; Est GFR (African American) 94.8 ml/min; Est GFR (Non-African American) 81.8 ml/min; Potassium 3.9 mmol/L (3.5-5.1)
[2021-12-05 06:36] LABS: Partial Thromboplastin Time 52.3 Seconds (21.0-31.0)
[2021-12-05] MEDS: D5W AND NSS 1,000 ML IV SCH (07:59)
[2021-12-05] MEDS: GABAPENTIN 100 MG CAP PO SCH ×2 (08:00→13:15)
[2021-12-05] MEDS: METOPROLOL TARTRATE 50 MG TAB PO SCH (08:01)
--- NOTE | 2021-12-05 08:55 | Surgery Progress Note ---
Date of Service December 05, 2021 Assessment & Plan (1) Acute diverticulitis: Plan: Acute process appears to be resolving both clinically and chemically I would recommend the patient be advanced so low fiber diet and she can be discharged to follow-up with Dr. Montes and his group next week I would recommend another 7 days of antibiotic she is allergic to multiple antibiotics but if he can tolerate either Cipro Flagyl combination or Augmentin that would be appropriate Admission and Anticipated Discharge Date Admission Date: December 01, 2021 Subjective She feels fine denies any abdominal pain states is moving her bowels formed tolerated liquid diet would like more to eat Physical Exam Physical Exam: Alert coherent resting comfortably in bed The abdomen is completely benign no tenderness or guarding Results & Data ([facility]) Vital Signs (Past 12 Hours) Vital Signs Temp Pulse Resp BP Pulse Ox 12/05/21 08:36 37.1 C 88 18 132/90 94 12/05/21 00:01 36.6 C 69 16 115/70 91 PG Care Time/CCT Total # of Minutes Spent Total Time Spent with Patient: Total time spent is greater than 50% in coordination of care (as documented) at patient's floor/unit and/or counseling patient: Coding Level of Care Code 12495 Subseq Hosp Care Lvl 3 Diagnoses Acute diverticulitis K57.92
[2021-12-05] MEDS ORDERED: APIXABAN 2.5 MG TAB PO SCH (11:45)
[2021-12-05] MEDS ORDERED: HEPARIN DRIP~STOP ORDER ONE (12:00)
[2021-12-05] MEDS: CEFEPIME 2,000 MG in SYRINGE 0 ML IV SCH (12:13)
[2021-12-05] MEDS ORDERED: metroNIDAZOLE 500 MG TAB PO STA (16:46)
--- NOTE | 2021-12-05 16:56 | Discharge Summary ---
Date of Service December 05, 2021 Admission HPI Per Admitting Provider 86-year-old female with PMH dyslipidemia, prediabetes, paroxysmal atrial fibrillation anticoagulated on Eliquis, tachybradycardia syndrome s/p pacemaker, HTN, GERD, RLS, history of migraines, and other problems listed below who presents the ED for evaluation of left lower quadrant abdominal pain. Patient reports her symptoms began about 6 days ago. She was suspicious that she may have diverticulitis again. She called her PCP who started her on Cipro on 11/28. Patient reports minimal improvement in her symptoms since that time. She has had associated nausea however denies vomiting and diarrhea. Reports last bowel movement was 3 days ago and stool was very dark. She has had a poor appetite. No fevers or chills. Denies chest pain, shortness of breath, palpitations. No lightheadedness, dizziness, diaphoresis, syncopal events. Has had some urinary hesitancy however denies dysuria. In the ED, CT ABD/pelvis shows Acute diverticulitis with a gas and fluid collection adjacent to this finding compati ble with contained rupture and/or abscess. Patient was given IV cefepime, IV Flagyl, IV morphine, IV Zofran, IVF. Admission Exam Per Admitting Provider Constitutional: WD/WN, vitals as above Eyes: PERRL, conjunctivae normal, anicteric sclerae ENMT: external ear and nose normal, oropharynx normal Respiratory: normal respiratory effort, lungs clear to auscultation Cardiovascular: Rate/Rhythm: regular rate and regular rhythm Vessels: normal peripheral pulses Extremities: no edema Gastrointestinal (Abdomen): Inspection/Auscultation: + abdomen distended and normal bowel sounds Percussion/Palpation: + abdomen tender (LLQ), + guarding and abdomen soft; no hepatosplenomegaly Musculoskeletal: no cyanosis or clubbing, extremities motor strength 5/5 Skin: no rashes, warm and dry Neurologic: PERRL, EOMI, accommodation nl, no face palsy, no dysarthria Psychiatric: A+Ox3, euthymic affect Principal Diagnosis Acute diverticulitis: Paroxysmal atrial fibrillation: Tachy-michael syndrome: Hypertension: Discharge Exam General- No acute distress Head- atraumatic Eyes- PERRL, EOMI, ENT- oropharynx clear Neck- supple, no JVD Lungs- clear to auscultation Heart- regular rhythm; no murmur Abdomen- normal bowel sounds,+tender Extremities- no calf tenderness Neuro- alert, oriented x 3; PERRL, EOMI; no facial palsy; no dysarthria Skin- warm & dry Discharge Data Allergies Allergy/AdvReac Type Severity Reaction Status Date / Time sulfamethoxazole Allergy Intermediate RASH Verified 12/01/21 10:22 trimethoprim Allergy Intermediate RASH Verified 12/01/21 10:22 Penicillins Allergy Mild Rash Verified 12/01/21 10:22 propoxyphene Allergy Mild Unknown Verified 12/01/21 10:22 Sulfa (Sulfonamide Allergy Mild Rash Unverified 12/01/21 10:22 Antibiotics) venlafaxine [From Effexor] Allergy Mild Hives/Itchy Unverified 12/01/21 10:22 /Rash amlodipine AdvReac Intermediate LEGS AND Verified 12/01/21 10:22 FEET GET TIGHT atorvastatin AdvReac Intermediate Inc Lft Unverified 12/01/21 10:22 after Cholecystectomy enalapril AdvReac Intermediate tightness Verified 12/01/21 10:22 in ankles erythromycin base AdvReac Intermediate Vomiting Verified 12/01/21 10:22 fentanyl AdvReac Intermediate SEVERE Verified 12/01/21 10:22 N&V;DIZZY ondansetron [From Zofran] AdvReac Intermediate Nausea Verified 12/01/21 10:22 topiramate [From Topamax] AdvReac Intermediate "FINGERS Verified 12/01/21 10:22 NUMB" tramadol [From Ultram] AdvReac Intermediate Vomiting Verified 12/01/21 10:22 clindamycin AdvReac Mild Nausea Verified 12/01/21 10:22 codeine AdvReac Mild SICK TO Verified 12/01/21 10:22 STOMACH Quinolones AdvReac Mild N&V Verified 12/01/21 10:22 Consultations 12/01/21 11:27 Consult General Surgery Stat 12/01/21 11:31 ED Decision to Admit Stat Ordered Studies 12/01/21 08:23 CT abd pelvis IV con only Stat KUB HISTORY: Acute generalized abdominal pain abdominal pain COMPARISON: CT abdomen pelvis 12/01/2021 FINDINGS: Nonobstructive bowel gas pattern. Cholecystectomy. Moderate fecal retention. The renal shadows are obscured by bowel gas. The patient's known right nephrolithiasis are not identified. No pneumoperitoneum or pneumatosis. Degenerative changes of the spine, pelvis and hips. Cardiac pacer with cardiomegaly. No fracture. IMPRESSION: 1. Nonobstructive bowel gas pattern. 2. Moderate fecal retention. 3. The renal shadows are obscured by bowel gas. The patient's known right nephrolithiasis are not identified. ACT 112: Negative or not required by law. The above report was generated using voice recognition software. It may contain grammatical, syntax or spelling errors. Electronically signed by: Roe Joseph M.D. 12/03/2021 8:52 AM Dictated:12/03/21848 Transcribed: 12/03/21848 CT abd pelvis IV con only CLINICAL HISTORY: abd pain w/ diverticulitis worse TECHNIQUE: Helical axial images of the abdomen and pelvis were obtained and displayed. Automated dose lowering techniques and/or adjustment according to patient size were utilized for this exam. This exam was performed with intravenous contrast. COMPARISON: Comparison is made to CT abdomen pelvis 01/21/2021 FINDINGS: Lower chest: Trace atelectasis versus scarring is seen. Cardiomegaly is partially visualized. Liver: Unremarkable. No focal lesions are seen. Gallbladder and biliary tree: Patient is status post cholecystectomy. Ph ysiologic prominence of the common bile duct is seen measuring approximately 8 mm in diameter. Pneumobilia is seen. Pancreas: Unremarkable, no focal lesions. Spleen: Unremarkable. Adrenals: Unremarkable. Kidneys and ureters: Bilateral cysts are seen in the kidneys. Bladder: Unremarkable. Reproductive organs: Unremarkable. Bowel: Severe wall thickening and fat stranding is seen about the sigmoid colon compatible with acute diverticulitis. There is a gas and fluid collection adjacent to the sigmoid colon measuring approximately 3.2 x 1.3 cm compatible with contained rupture/abscess. Lymph nodes Retroperitoneal: Unremarkable. Mesenteric: Subcentimeter lymph nodes are noted. Pelvic: Unremarkable. Peritoneum: There is a small amount of free fluid layering in the pelvis as well as the fat stranding around the sigmoid colon mentioned above. Vessels: Atherosclerotic calcifications are seen. Abdominal wall: Unremarkable. Bones: Degenerative changes in the visualized spine. IMPRESSION: 1. Acute diverticulitis is seen. There is a gas and fluid collection adjacent to this finding compatible with contained rupture and/or abscess. 2. Additional findings as above. ACT 112: Negative or not required by law. Electronically signed by: Petros Gordon M.D. 12/01/2021 11:09 AM Dictated:12/01/21 1100 Transcribed: 12/01/21 1100 Hospital Course (1) Acute diverticulitis: CT ABD/pelvis on admission showed acute diverticulitis with a gas and fluid collection adjacent to this finding compatible with contained rupture and/or abscess Patient is afebrile, no leukocytosis, hemodynamically stable Currently on IV cefepime Surgery on board recommend conservative management with IV antibiotic Nausea and vomiting have subsided -> okay to advance to full liquids, per surgery KUB of nonobstructive bowel gas pattern. Moderate fecal retention. The renal shadows are obscured by bowel gas. The patient's known right nephrolithiasis are not identified Aggressive bowel regimen continued N/V and abdominal pain have subsided Considering additional imaging for renal stones if pain remains after resolution of constipation (2) Paroxysmal atrial fibrillation: Rate controlled on metoprolol Anticoagulated on Eliquis - due to possible need for OR, patient was placed on IV heparin drip, will continue for now (3) Tachy-michael syndrome: (4) Pacemaker: No acute issues (5) Hypertension: BP mildly elevated, likely situational/due to pain Continue metoprolol and terazosin (6) DVT prophylaxis: On IV heparin as above Patient seen in collaboration with Dr. Pineda. Please see addendum. Total Time Total Time Spent Total Time Spent (In Minutes): 35 minutes Discharge Plan Discharge Items Patient Disposition: Home - Self-Care Reason For Visit: RUPTURED DIVERTICULITIS Discharge Diagnosis: Acute diverticulitis: Paroxysmal atrial fibrillation: Tachy-michael syndrome: Hypertension: Activity: Resume your previous activity Non-emergency contact: Primary Care Provider Call non-emergency contact if: you have any medication questions Follow-up/Referrals: Preston Villagran MD [Primary Care Provider] - Diet: Heart Healthy and Low Fiber Addtl Attending Provider Instructions: Follow up with your primary care provider Dr. Villagran in 1 week ( office will call you for the appointment) Follow up with general surgery Dr. Montes ( or his Colleague ) for the diverticulitis (please call for the follow up appointment) Please follow a low fiber diet Complete the course of the antibiotic with Ciprofloxacin (Already had it at home) Please take the next dose of ciprofloxacin tonight Seek medical attention if your symptoms worsening Pending Studies at Discharge: No Stand-Alone Forms: My [facility], Smoking Cessation Medications and DC Order Prescriptions: Continued rosuvastatin 5 mg tablet 5 mg PO HS RF: 0 sumatriptan succinate 100 mg tablet 100 mg PO DAILY PRN (Reason: Migraine Headache) RF: 0 Prolia 60 mg/mL Syringe 1 dose SUBCUT Q180D RF: 0 terazosin 1 mg capsule 1 mg PO HS RF: 0 Eliquis 2.5 mg Tablet 2.5 mg PO BID RF: 0 gabapentin 100 mg Capsule 100 mg PO TID RF: 0 dicyclomine 10 mg capsule 10 mg PO QID PRN (Reason: ABD PAIN) RF: 0 metoprolol tartrate 25 mg tablet 25 mg PO HS RF: 0 metoprolol tartrate 25 mg tablet 50 mg PO QAM RF: 0 Centrum Silver Women 8 mg iron-400 mcg-300 mcg Tablet 1 tab PO QDL RF: 0 acetaminophen [Tylenol] 325 mg Tablet 650 mg PO Q6 PRN (Reason: Pain) RF: 0 omeprazole 40 mg Capsule,Delayed Release(Dr/Ec) 40 mg PO DAILYBB RF: 0 cholecalciferol (vitamin D3) [Vitamin D3] 25 mcg (1,000 unit) Capsule 50 mcg PO QDL RF: 0 ciprofloxacin HCl 500 mg tablet 500 mg PO BID RF: 0 ropinirole 0.25 mg tablet 0.25 mg PO HS RF: 0 Discharge Orders: Discharge Order (Routine); Ordered 12/05/21 Ordered By: Leanne Kang/Other Patient Handouts: Diverticulosis and Diverticulitis, Diverticulitis Dc Admission Data Admit Date/Time: 12/01/21 11:49 Attending Provider: Leanne Pineda Admit Provider: Jayesh Stevens Primary Care Provider: Preston Villagran Other Providers: Yariel Montes ; Dorcas Mehta Other Interventions: Discharge Summary Assessment (RN) Last Done: 12/05/21 17:16
[2021-12-06] MEDS ORDERED: metroNIDAZOLE 500 MG TAB PO SCH (09:00)
== END 2021-12-05 18:15 | disposition home or self-care (01) | DRG 392 ==
LOC: ED 08:16 → 3W 11:49 → SUATTDRO 11:49 → 3W 13:57
DX: Z88.1 Allergy status to other antibiotic agents; Z95.0 Presence of cardiac pacemaker; Z20.822 Contact with and (suspected) exposure to COVID-19; E78.5 Hyperlipidemia, unspecified; Z79.899 Other long term (current) drug therapy; Z88.2 Allergy status to sulfonamides; Z82.49 Family history of ischemic heart disease and other diseases of the circulatory system; N18.30 Chronic kidney disease, stage 3 unspecified; I12.9 Hypertensive chronic kidney disease with stage 1 through stage 4 chronic kidney disease, or unspecified chronic kidney disease; I48.0 Paroxysmal atrial fibrillation; K57.20 Diverticulitis of large intestine with perforation and abscess without bleeding; Z79.01 Long term (current) use of anticoagulants; Z88.0 Allergy status to penicillin; Z88.8 Allergy status to other drugs, medicaments and biological substances; Z87.442 Personal history of urinary calculi; K21.9 Gastro-esophageal reflux disease without esophagitis; I49.5 Sick sinus syndrome; R10.11 Right upper quadrant pain; K59.00 Constipation, unspecified; G25.81 Restless legs syndrome; Z88.5 Allergy status to narcotic agent

== ENCOUNTER 2022-04-25 22:38 | Observation (INO) ==
--- NOTE | 2022-04-25 22:56 | Emergency Department Note ---
ED Visit Note I agree with the diagnosis and management decisions and have been personally involved in the case. Patient was medicated with IV Pepcid and given 5 mg of IV hydralazine due to persistent hypertension. Laboratory work reveals negative troponin. Due to the patient's ongoing chest discomfort and hypertension patient will be evaluated by the hospitalist service for admission and further management. Please see Landy Burr PA-C's notes for further details of the history, physical and visit. . : Chest pain Qualifiers: Chest pain type: unspecified Qualified Code(s): R07.9 - Chest pain, unspecified
[2022-04-25] MEDS ORDERED: FAMOTIDINE 20MG IV PUSH 20 MG/5 ML SYR IV STA (23:02)
--- NOTE | 2022-04-25 23:05 | Emergency Department Note ---
History of Present Illness General Chief complaint: Arrhythmia/Palpitations Stated complaint: PAIN IN LEFT ARM, AND STOMACH, HEART RACING Time Seen by Provider: 04/25/22 22:50 History of Present Illness Maximum Pain Intensity: 9 This 87-year-old presents to the ER complaining of epigastric pain with heart racing and left arm pain Location: Epigastric and left arm Quality: Discomfort Severity: Moderate Duration: Today Timing: Today Context: Patient was concerned and came in Modifying factors: better with antacid; worse with activity Patient is concerned it might be her heart. 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 Patient states she feels her heart is racing. She has a history of A. fib. She has a pacemaker. She do not feel the pacemaker go off. Patient denies vomiting, diarrhea, fevers, diaphoresis, chest pain. Home Medications Medication Instructions Recorded Confirmed Type denosumab 60 mg/mL subcutaneous 1 dose SUBCUT Q180D 01/14/19 04/26/22 History syringe (Prolia) sumatriptan succinate 100 mg tablet 100 mg PO DAILY PRN 01/14/19 04/26/22 History terazosin 1 mg capsule 1 mg PO HS 08/29/19 04/26/22 History apixaban 2.5 mg tablet (Eliquis) 2.5 mg PO BID 02/02/20 04/26/22 History gabapentin 100 mg capsule 100 mg PO BID 02/02/20 04/26/22 History dicyclomine 10 mg capsule 10 mg PO QID PRN 06/06/20 04/26/22 History acetaminophen 325 mg tablet 650 mg PO Q6 PRN 08/03/20 04/26/22 History (Tylenol) metoprolol tartrate 25 mg tablet 25 mg PO HS 10/13/20 04/26/22 History metoprolol tartrate 25 mg tablet 50 mg PO QAM 10/13/20 04/26/22 History cholecalciferol (vitamin D3) 25 50 mcg PO QDL 01/21/21 04/26/22 History mcg (1,000 unit) capsule (Vitamin D3) omeprazole 40 mg capsule,delayed 40 mg PO DAILYBB 01/21/21 04/26/22 History release rosuvastatin 5 mg tablet 5 mg PO HS 10/06/21 04/26/22 History Allergies Allergy/AdvReac Type Severity Reaction Status Date / Time sulfamethoxazole Allergy Intermediate RASH Verified 04/26/22 01:42 trimethoprim Allergy Intermediate RASH Verified 04/26/22 01:42 Penicillins Allergy Mild Rash Verified 04/26/22 01:42 propoxyphene Allergy Mild Unknown Verified 04/26/22 01:42 Sulfa (Sulfonamide Allergy Mild Rash Unverified 04/26/22 01:42 Antibiotics) venlafaxine [From Effexor] Allergy Mild Hives/Itchy Unverified 04/26/22 01:42 /Rash amlodipine AdvReac Intermediate LEGS AND Verified 04/26/22 01:42 FEET GET TIGHT atorvastatin AdvReac Intermediate Inc Lft Unverified 04/26/22 01:42 after Cholecystectomy enalapril AdvReac Intermediate tightness Verified 04/26/22 01:42 in ankles erythromycin base AdvReac Intermediate Vomiting Verified 04/26/22 01:42 fentanyl AdvReac Intermediate SEVERE Verified 04/26/22 01:42 N&V;DIZZY ondansetron [From Zofran] AdvReac Intermediate Nausea Verified 04/26/22 01:42 topiramate [From Topamax] AdvReac Intermediate "FINGERS Verified 04/26/22 01:42 NUMB" tramadol [From Ultram] AdvReac Intermediate Vomiting Verified 04/26/22 01:42 clindamycin AdvReac Mild Nausea Verified 04/26/22 01:42 codeine AdvReac Mild SICK TO Verified 04/26/22 01:42 STOMACH Quinolones AdvReac Mild N&V Verified 04/26/22 01:42 Past Med/Surg History Medical History Diverticulosis Gastroparesis GERD (gastroesophageal reflux disease) History of skin cancer Hyperlipidemia Hypertension Migraines On anticoagulant therapy Sensorineural hearing loss (SNHL) of both ears Thoracic aortic aneurysm Mildly dilated on echo 02/2019 per cardiology, but not seen on 08/2019 echo at [facility]. Surgical History History of breast biopsy History of cataract surgery History of cholecystectomy 02/02/2020; [facility]; MAC #3, ETT 7.0. No complications. History of cystoscopy W/ STONE EXTRACTION History of ERCP with stone removal and stent placement 02/28 [place] History of lumbar surgery History of Mohs micrographic surgery for skin cancer History of tooth extraction Status post trigger finger release Family History Other Coronary heart disease No family history of adverse response to anesthesia Social History Smoking Status: Never smoker Second Hand Exposure: No; Hx Alcohol Use: No Hx Substance Use: No Preferred Language: [place] Citizen Communication Ability: Effective Traffic Sergeant Required: No Beliefs That Will Affect Care: None marital status: / Current Living Situation: Alone How many Children do You have: 0 Feels Safe at Home: Yes Assistive Devices: None Review of Systems A total of 10 systems reviewed and were otherwise negative Physical Exam Vital Signs Vital Signs - 24 hr 04/25/22 22:40 04/25/22 23:05 04/26/22 01:00 Temperature 36.2 C L 37.1 C 36.8 C Temperature Source Temporal Artery Scan Oral Oral Pulse Rate 73 73 Pulse Rate [Apical] 67 78 Pulse Rhythm Regular Pulse Rhythm [Apical] Regular Regular Pulse Strength [Apical] Normal Normal Respiratory Rate 18 18 18 Respiratory Effort / Characteristics Non-Labored Spontaneous Non-Labored Spontaneous Non-Labored Spontaneous Respiratory Depth Normal Normal Normal Respiratory Pattern Regular Regular Regular Blood Pressure 189/102 H Blood Pressure [Right Arm] 169/99 H 176/114 H Blood Pressure Mean 131 Blood Pressure Mean [Right Arm] 122 134 Blood Pressure Position Sitting Blood Pressure Position [Right Arm] Lying Lying Pulse Oximetry 98 96 97 Oxygen Delivery Method Room Air Room Air Room Air Sepsis Recent Fever Within 48 Hours No Sepsis New/Unexplained Change in Mental Status N/A Sepsis Action Taken by Nursing No Action Required VITALS: Vitals are noted on the nurse's note and reviewed by myself. Vital signs stable. GENERAL: Pleasant female, in no acute distress, nondiaphoretic, well-developed well-nourished. SKIN: The skin was without rashes, erythema, edema, or bruising. There is no tenting of the skin. Capillary reflex less than 2 seconds. HEAD: Normocephalic atraumatic. EARS: External auditory canals clear, EYES: Pupils equal round and reactive to light and accommodation. Conjunctivae without injection, sclerae without icterus. Extraocular movements intact. NOSE: Patent, turbinates without inflammation or discharge. MOUTH: Mucous membranes moist. Pharynx without erythema or exudate. Uvula midline. Airway patent. Tongue does not deviate. NECK: Supple without nuchal rigidity. No lymphadenopathy. No thyromegaly. Cervical spine is nontender. No JVD. HEART: Regular rate and rhythm LUNGS: Clear to auscultation bilaterally without wheezes, rales or rhonchi. No retractions or accessory muscle use. ABDOMEN: Positive bowel sounds x 4. Normal tympanic percussion. Soft, nontender, without masses or organomegaly. Hamilton sign negative. No guarding or rebound tenderness. No CVA tenderness MUSCULOSKELETAL: No muscle atrophy, erythema, or edema noted. NEURO: Patient was alert and oriented to person place and time. Normal sensation to light and sharp touch. No focal neurological deficits. Course Administered Medications Discontinued Medications Hydralazine HCl (Hydralazine Hcl 20 Mg/Ml Vial) 5 mg IV NOW ONE Stop: 04/26/22 01:23 Last Admin: 04/26/22 01:54 Dose: 5 mg Documented by: [id number] Famotidine (Pepcid 20mg Iv Push) 20 mg in 5 mls @ 2.5 mls/min IV NOW STA Stop: 04/25/22 23:03 Last Admin: 04/26/22 00:41 Dose: 2.5 mls/min Documented by: [id number] Medical Decision Making Medical Records Attestation: I reviewed the patient's medical records. Home Medications Current Medication List: was personally reviewed by me Laboratory Data Attestation: I reviewed the patient's lab results. Result diagrams: 04/25/22 23:45 04/25/22 23:45 Lab Results 04/25/22 04/25/22 04/25/22 Range/Units 23:45 23:45 23:45 WBC 7.64 (4.8-10.8) K/uL RBC 4.72 (4.2-5.4) M/uL Hgb 14.4 (12.0-16.0) g/dL Hct 43.0 (37-47) % MCV 91.1 (80-100) fL MCH 30.5 (25-34) pg MCHC 33.5 (32-36) g/dL RDW Std Deviation 43.2 (36.4-46.3) fL RDW Coeff of Ling 12.9 (11.5-14.5) % Plt Count 217 (130-400) K/uL MPV 9.9 (7.4-10.4) fL Immature Gran % (Auto) 0.4 % Neut % (Auto) 67.6 % Lymph % (Auto) 25.0 % Mcclain % (Auto) 5.4 % Eos % (Auto) 1.3 % Baso % (Auto) 0.3 % Neut # (Auto) 5.17 (1.4-6.5) K/uL Lymph # (Auto) 1.91 (1.2-3.4) K/uL Mcclain # (Auto) 0.41 (0.11-0.59) K/uL Eos # (Auto) 0.10 (0-0.5) K/uL Baso # (Auto) 0.02 (0-0.2) K/uL Immature Gran # (Auto) 0.03 H (0.00-0.02) K/uL Sodium 138 (136-145) mmol/L Potassium 4.0 (3.5-5.1) mmol/L Chloride 102 (98-107) mmol/L Carbon Dioxide 27 (21-32) mmol/L Anion Gap 9 (3-11) BUN 28 H (6-23) mg/dl Creatinine 0.79 (0.6-1.2) mg/dl Est Cr Clr Drug Dosing 38.6 ml/min Est GFR ( Amer) 78.6 ml/min Est GFR (Non-Af Amer) 67.8 ml/min BUN/Creatinine Ratio 35.4 H (10-20) Glucose 110 H (70-99(Fasting)) mg/dl Calcium 10.5 H (8.5-10.1) mg/dl Magnesium 2.1 (1.7-2.4) mg/dl Total Bilirubin 0.5 (0.2-1.0) mg/dl AST 20 (13-39) U/L ALT 17 (7-52) U/L Alkaline Phosphatase 55 (34-104) U/L Troponin I High Sens 6.5 (0-14) pg/ml Total Protein 7.6 (6.0-8.3) gm/dl Albumin 5.2 H (3.4-5.0) gm/dl Globulin 2.4 L (2.5-4.0) gm/dl Albumin/Globulin Ratio 2.2 H (0.9-2) Lipase 40 (11-82) U/L TSH 4.659 H (0.300-4.500) uIu/ml Free T4 0.83 (0.61-1.60) ng/dl SARS-CoV-2 (PCR) (Negative) Influenza Type A (PCR) (Neg) Influenza Type B (PCR) (Neg) RSV (RT-PCR) (Neg) 04/25/22 04/26/22 Range/Units 23:45 00:43 WBC (4.8-10.8) K/uL RBC (4.2-5.4) M/uL Hgb (12.0-16.0) g/dL Hct (37-47) % MCV (80-100) fL MCH (25-34) pg MCHC (32-36) g/dL RDW Std Deviation (36.4-46.3) fL RDW Coeff of Ling (11.5-14.5) % Plt Count (130-400) K/uL MPV (7.4-10.4) fL Immature Gran % (Auto) % Neut % (Auto) % Lymph % (Auto) % Mcclain % (Auto) % Eos % (Auto) % Baso % (Auto) % Neut # (Auto) (1.4-6.5) K/uL Lymph # (Auto) (1.2-3.4) K/uL Mcclain # (Auto) (0.11-0.59) K/uL Eos # (Auto) (0-0.5) K/uL Baso # (Auto) (0-0.2) K/uL Immature Gran # (Auto) (0.00-0.02) K/uL Sodium (136-145) mmol/L Potassium (3.5-5.1) mmol/L Chloride (98-107) mmol/L Carbon Dioxide (21-32) mmol/L Anion Gap (3-11) BUN (6-23) mg/dl Creatinine (0.6-1.2) mg/dl Est Cr Clr Drug Dosing ml/min Est GFR ( Amer) ml/min Est GFR (Non-Af Amer) ml/min BUN/Creatinine Ratio (10-20) Glucose (70-99(Fasting)) mg/dl Calcium (8.5-10.1) mg/dl Magnesium (1.7-2.4) mg/dl Total Bilirubin (0.2-1.0) mg/dl AST (13-39) U/L ALT (7-52) U/L Alkaline Phosphatase (34-104) U/L Troponin I High Sens 6.6 (0-14) pg/ml Total Protein (6.0-8.3) gm/dl Albumin (3.4-5.0) gm/dl Globulin (2.5-4.0) gm/dl Albumin/Globulin Ratio (0.9-2) Lipase (11-82) U/L TSH (0.300-4.500) uIu/ml Free T4 (0.61-1.60) ng/dl SARS-CoV-2 (PCR) NEGATIVE (Negative) Influenza Type A (PCR) Negative (Neg) Influenza Type B (PCR) Negative (Neg) RSV (RT-PCR) Negative (Neg) Imaging Data Attestation: I personally reviewed and interpreted this imaging study as follows: MDM Narrative Prior records/ancillary studies reviewed. Triage Nursing notes reviewed. Additional history obtained from family. The patient's history was concerning for epigastric pain. Differential diagnosis: Etiologies such as cardiac ischemia, aortic dissection, pulmonary embolism, pneumonia, pneumothorax, musculoskeletal, infections, pericarditis, myocarditis, esophageal rupture, gastrointestinal, as well as others were entertained. Physical examination: As above. ER treatment provided: An order was placed for continuous cardiac monitoring. The monitor shows a rate of 60-100 with a sinus rhythm. Pepcid On reassessment the patient felt better. Diagnostic interpretation by me: The electrocardiogram was ordered for epigastric pain EKG: Atrial paced ventricular rate of [address]-T wave changes. Impression atrial paced with a rate of 71 interpreted by myself The labs revealed first troponin negative and repeat was ordered Imaging studies: Chest x-ray with no acute consolidation, pneumothorax or free air per my interpretation HEART SCORE: Hx: high/mod/low suspicion: 1 ECG: ST depression/nonspecific changes/normal: 0 Age: Greater than 65/45-64/less than 45: 2 Risk factors: (Hypertension, hyperlipidemia, diabetes, coronary disease, tobacco use, cocaine use): 2 Troponin: Greater than 2 times normal limits/1-2 times normal limits/normal: 0 Total: 5 Consultation: A consultation was placed with the hospitalist. The case was discussed and diagnostics were reviewed. The patient was evaluated in the ER for further treatment. Exam and history seem consistent with epigastric pain with concerns for cardiac in etiology. Medicine is consulted. She will be evaluated for possible admission. By the evaluation outlined above emergent etiologies such as aortic dissection, pulmonary embolism, pneumonia, pneumothorax, infections, pericarditis, myocarditis, gastrointestinal, as well as others were deemed relatively unlikely. The pt informed about the findings as listed above. All questions were answered and pleased with the treatment. The chart was completed utilizing [employer] Speech voice recognition software. Grammatical errors, random word insertions, pronoun errors, and incomplete sentences are an occassional consequence of this system due to software l imitations, ambient noise, and hardware issues. Any formal questions or concerns about the content, text, or information contained within the body of this dictation should be directly addressed to the physician assistant farm operations manager for clarification. Impression & Plan Chest pain, Heart palpitations Discharge Plan Visit Data Chief Complaint: Arrhythmia/Palpitations Stated Complaint: PAIN IN LEFT ARM, AND STOMACH, HEART RACING ED Provider: Ronda Ponce ED Midlevel Provider: Mary Burr Discharge Problem: Chest pain, Heart palpitations Patient Disposition: Admitted As Inpatient Condition: Good Forms Stand Alone Forms: My [facility] [employer] Prescriptions Prescriptions: No Action rosuvastatin 5 mg tablet 5 mg PO HS RF: 0 sumatriptan succinate 100 mg tablet 100 mg PO DAILY PRN (Reason: Migraine Headache) RF: 0 Prolia 60 mg/mL Syringe 1 dose SUBCUT Q180D RF: 0 terazosin 1 mg capsule 1 mg PO HS RF: 0 Eliquis 2.5 mg Tablet 2.5 mg PO BID RF: 0 gabapentin 100 mg Capsule 100 mg PO BID RF: 0 dicyclomine 10 mg capsule 10 mg PO QID PRN (Reason: ABD PAIN) RF: 0 metoprolol tartrate 25 mg tablet 25 mg PO HS RF: 0 metoprolol tartrate 25 mg tablet 50 mg PO QAM RF: 0 acetaminophen [Tylenol] 325 mg Tablet 650 mg PO Q6 PRN (Reason: Pain) RF: 0 omeprazole 40 mg Capsule,Delayed Release(Dr/Ec) 40 mg PO DAILYBB RF: 0 cholecalciferol (vitamin D3) [Vitamin D3] 25 mcg (1,000 unit) Capsule 50 mcg PO QDL RF: 0 Referrals Referrals: Preston Villagran MD [Primary Care Provider] - Discharge Problem: Chest pain Qualifiers: Chest pain type: unspecified Qualified Code(s): R07.9 - Chest pain, unspecified
[2022-04-26 00:06] LABS: Basophils # (auto) 0.02 K/uL (0-0.2); Basophils % (auto) 0.3 %; Eosinophils % (auto) 1.3 %; Hemoglobin 14.4 g/dL (12.0-16.0); Immature Granulocytes # (auto) 0.03 K/uL (0.00-0.02); Immature Granulocytes % (auto) 0.4 %; Lymphocytes # (auto) 1.91 K/uL (1.2-3.4); Mean Corpuscular Hemoglobin 30.5 pg (25-34); Mean Corpuscular Hgb Conc 33.5 g/dL (32-36); Mean Corpuscular Volume 91.1 fL (80-100); Mean Platelet Volume 9.9 fL (7.4-10.4); Monocytes # (auto) 0.41 K/uL (0.11-0.59); Monocytes % (auto) 5.4 %; Neutrophils # (auto) 5.17 K/uL (1.4-6.5); Neutrophils % (auto) 67.6 %; Platelet Count 217 K/uL (130-400); RDW Coefficient of Variation 12.9 % (11.5-14.5); RDW Standard Deviation 43.2 fL (36.4-46.3); Red Blood Count 4.72 M/uL (4.2-5.4); White Blood Count 7.64 K/uL (4.8-10.8)
[2022-04-26 00:25] LABS: Albumin Globulin Ratio 2.2 (0.9-2); Albumin Level 5.2 gm/dl (3.4-5.0); BUN Creatinine Ratio 35.4 (10-20); Bilirubin,Total 0.5 mg/dl (0.2-1.0); Calcium 10.5 mg/dl (8.5-10.1); Creatinine Clr Calc Pharmacy 38.6 ml/min; Est GFR (African American) 78.6 ml/min; Est GFR (Non-African American) 67.8 ml/min; Globulin 2.4 gm/dl (2.5-4.0); Magnesium 2.1 mg/dl (1.7-2.4); Total Protein 7.6 gm/dl (6.0-8.3)
[2022-04-26 00:27] LABS: Troponin I High Sensitivity 6.5 pg/ml (0-14)
[2022-04-26 01:00] LABS: Thyroid Stimulating Hormone 4.659 uIu/ml (0.300-4.500)
[2022-04-26 01:12] LABS: Influenza A virus by PCR Negative (Neg); Influenza B virus by PCR Negative (Neg); RSV by PCR Negative (Neg); SARS CoV2 RNA(COVID-19) InHosp NEGATIVE (Negative)
[2022-04-26] MEDS ORDERED: hydrALAZINE HCL 20 MG/ML VIAL IV ONE (01:22)
[2022-04-26 01:34] LABS: T4 Free Thyroxine 0.83 ng/dl (0.61-1.60)
[2022-04-26] MEDS ORDERED: NITROGLYCERIN SL 0.4 MG/TAB TAB SL PRN (03:10)
[2022-04-26] MEDS ORDERED: ACETAMINOPHEN 325 MG TAB PO PRN (03:10)
[2022-04-26] MEDS ORDERED: DICYCLOMINE HCL 10 MG CAP PO PRN (03:10)
[2022-04-26] MEDS ORDERED: MoRPHine SULFATE 2 MG/ML CARP IV STA (04:00)
[2022-04-26] MEDS ORDERED: ALUMINUM/MAGNESIUM/SIMETH (MAALOX MAX) 30 ML UDC PO STA (04:00)
[2022-04-26] MEDS: PANTOprazole 40 MG TAB PO SCH (06:12)
[2022-04-26 06:25] LABS: Basophils # (auto) 0.03 K/uL (0-0.2); Basophils % (auto) 0.4 %; Eosinophils % (auto) 1.3 %; Hematocrit (blood only) 39.8 % (37-47); Hemoglobin 13.8 g/dL (12.0-16.0); Immature Granulocytes # (auto) 0.03 K/uL (0.00-0.02); Immature Granulocytes % (auto) 0.4 %; Lymphocytes # (auto) 1.92 K/uL (1.2-3.4); Lymphocytes % (auto) 25.6 %; Mean Corpuscular Hemoglobin 31.6 pg (25-34); Mean Corpuscular Hgb Conc 34.7 g/dL (32-36); Mean Corpuscular Volume 91.1 fL (80-100); Mean Platelet Volume 9.7 fL (7.4-10.4); Monocytes # (auto) 0.52 K/uL (0.11-0.59); Monocytes % (auto) 6.9 %; Neutrophils # (auto) 4.91 K/uL (1.4-6.5); Neutrophils % (auto) 65.4 %; Platelet Count 207 K/uL (130-400); RDW Coefficient of Variation 12.8 % (11.5-14.5); RDW Standard Deviation 42.9 fL (36.4-46.3); Red Blood Count 4.37 M/uL (4.2-5.4); White Blood Count 7.51 K/uL (4.8-10.8)
[2022-04-26 06:51] LABS: Troponin I High Sensitivity 6.6 pg/ml (0-14)
[2022-04-26 07:24] LABS: BUN Creatinine Ratio 29.2 (10-20); Calcium 9.7 mg/dl (8.5-10.1); Creatinine Clr Calc Pharmacy 42.3 ml/min; Est GFR (African American) 87.9 ml/min; Est GFR (Non-African American) 75.8 ml/min; Magnesium 2.1 mg/dl (1.7-2.4); Potassium 3.8 mmol/L (3.5-5.1)
--- NOTE | 2022-04-26 07:52 | XRay Report ---
XR chest 1V portable HISTORY: 87 years-old Female Chest Pain acute atypical chest pain COMPARISON: Chest radiograph 11/21/2021 TECHNIQUE: Portable AP view of the chest FINDINGS: The cardiac silhouette is enlarged. The lead left subclavian pacer. No pneumothorax, pleural effusion , airspace consolidation or overt pulmonary edema. Degenerative changes of the shoulders and spine. IMPRESSION: Mild cardiomegaly without acute process. ACT 112: Negative or not required by law. The above report was generated using voice recognition software. It may contain grammatical, syntax o r spelling errors. Electronically signed by: Roe Joseph M.D. 04/26/2022 7:51 AM
[2022-04-26 07:59] LABS: Estimated Average Glucose 126 mg/dl
[2022-04-26] MEDS: SUMAtriptan succinate 100 MG TAB PO PRN (08:42)
[2022-04-26] MEDS: GABAPENTIN 100 MG CAP PO SCH ×2 (08:43→21:02)
[2022-04-26] MEDS: FAMOTIDINE 20 MG in SYRINGE 3 ML IV SCH ×2 (08:43→21:05)
[2022-04-26] MEDS: METOPROLOL TARTRATE 50 MG TAB PO SCH (08:43)
[2022-04-26] MEDS: APIXABAN 2.5 MG TAB PO SCH ×2 (08:43→20:05)
--- NOTE | 2022-04-26 08:46 | Cardiology Consultation ---
Date of Consultation April 26, 2022 Assessment & Plan (1) Epigastric pain: (2) Heart palpitations: (3) Tachy-michael syndrome: (4) Paroxysmal atrial fibrillation: (5) Cardiac pacemaker in situ: (6) Hypertension: Notable epigastric discomfort after eating. Discomfort reproducible with palpitation of the epigastric region of her abdomen. No symptoms suggestive of angina. Tachy-palpitations noted. She does carry a history of PAF and TBS s/p ppm. PACs noted on EKGs. 1. Will interrogate ppm while inpatient. Patient is anticoagulated with Eliquis for PAF- can consider increase in BB dosage if symptoms of tachy- palpitations resume. 2. Further recommendations pending echo results. 3. Overall, symptoms seems to be highly suggestive of a GI source, will defer to primary team for workup and treatment. Okay to eat from a cardiac standpoint. Case discussed with Dr. Pelletier, no further cardiology recommendations at this time. History of Present Illness Reason for Consultation: Chest pain/palpitations Requesting Physician: [facility] Attending Physician: Carlitos Blackburn MD History of Present Illness 87-year-old female with past medical history as stated below. Presented to the emergency department with complaints of epigastric pain, tachy-palpitations, and left arm pain. Patient states on Tuesday, 04/25 she woke in her normal state of health, but then ate some yogurt where she developed an a "sour stomach" with an aching feeling in her upper epigastric region- discomfort extends to the right and left. She became very nauseated, no vomiting. No diaphoresis. Tachy palpitations noted. She also noticed occasional symptoms of left shoulder and elbow pain, sometimes associated with the epigastric pain. Symptoms only occur at rest- never with activity. States that she has been under a great deal of stress recently- she is looking to sell her home and move to a custodial community in [place]. She developed similar symptoms this morning after taking her pills. She has not had anything to eat yet today. Overall lab work unremarkable including HS Troponin negative x3 (6.5>>6.6>>6.6). TSH mildly elevated at 4.659 with a normal Free T4. Chest x-ray negative for acute process EKG showed no evidence of ACS. 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 History of choledocholithiasis, status post ERCP Allergies Allergy/AdvReac Type Severity Reaction Status Date / Time sulfamethoxazole Allergy Intermediate RASH Verified 04/26/22 01:42 trimethoprim Allergy Intermediate RASH Verified 04/26/22 01:42 Penicillins Allergy Mild Rash Verified 04/26/22 01:42 propoxyphene Allergy Mild Unknown Verified 04/26/22 01:42 Sulfa (Sulfonamide Allergy Mild Rash Unverified 04/26/22 01:42 Antibiotics) venlafaxine [From Effexor] Allergy Mild Hives/Itchy Unverified 04/26/22 01:42 /Rash amlodipine AdvReac Intermediate LEGS AND Verified 04/26/22 01:42 FEET GET TIGHT atorvastatin AdvReac Intermediate Inc Lft Unverified 04/26/22 01:42 after Cholecystectomy enalapril AdvReac Intermediate tightness Verified 04/26/22 01:42 in ankles erythromycin base AdvReac Intermediate Vomiting Verified 04/26/22 01:42 fentanyl AdvReac Intermediate SEVERE Verified 04/26/22 01:42 N&V;DIZZY ondansetron [From Zofran] AdvReac Intermediate Nausea Verified 04/26/22 01:42 topiramate [From Topamax] AdvReac Intermediate "FINGERS Verified 04/26/22 01:42 NUMB" tramadol [From Ultram] AdvReac Intermediate Vomiting Verified 04/26/22 01:42 clindamycin AdvReac Mild Nausea Verified 04/26/22 01:42 codeine AdvReac Mild SICK TO Verified 04/26/22 01:42 STOMACH Quinolones AdvReac Mild N&V Verified 04/26/22 01:42 Home Medications Medication Instructions Recorded Confirmed Type denosumab 60 mg/mL subcutaneous 1 dose SUBCUT Q180D 01/14/19 04/26/22 History syringe (Prolia) sumatriptan succinate 100 mg tablet 100 mg PO DAILY PRN 01/14/19 04/26/22 History terazosin 1 mg capsule 1 mg PO HS 08/29/19 04/26/22 History apixaban 2.5 mg tablet (Eliquis) 2.5 mg PO BID 02/02/20 04/26/22 History gabapentin 100 mg capsule 100 mg PO BID 02/02/20 04/26/22 History dicyclomine 10 mg capsule 10 mg PO QID PRN 06/06/20 04/26/22 History acetaminophen 325 mg tablet 650 mg PO Q6 PRN 08/03/20 04/26/22 History (Tylenol) metoprolol tartrate 25 mg tablet 25 mg PO HS 10/13/20 04/26/22 History metoprolol tartrate 25 mg tablet 50 mg PO QAM 10/13/20 04/26/22 History cholecalciferol (vitamin D3) 25 50 mcg PO QDL 01/21/21 04/26/22 History mcg (1,000 unit) capsule (Vitamin D3) omeprazole 40 mg capsule,delayed 40 mg PO DAILYBB 01/21/21 04/26/22 History release rosuvastatin 5 mg tablet 5 mg PO HS 10/06/21 04/26/22 History Patient History Medical History Diverticulosis Gastroparesis GERD (gastroesophageal reflux disease) History of skin cancer Hyperlipidemia Hypertension Migraines On anticoagulant therapy Sensorineural hearing loss (SNHL) of both ears Thoracic aortic aneurysm Mildly dilated on echo 02/2019 per cardiology, but not seen on 08/2019 echo at [facility]. Surgical History History of breast biopsy History of cataract surgery History of cholecystectomy 02/02/2020; [facility]; MAC #3, ETT 7.0. No complications. History of cystoscopy W/ STONE EXTRACTION History of ERCP with stone removal and stent placement 02/28 [place] History of lumbar surgery History of Mohs micrographic surgery for skin cancer History of tooth extraction Status post trigger finger release Family History Other Coronary heart disease No family history of adverse response to anesthesia Social History Smoking Status: Never smoker Second Hand Exposure: No; Hx Alcohol Use: No Hx Substance Use: No Preferred Language: Polish Communication Ability: Effective Dairy Helper Required: No Beliefs That Will Affect Care: None marital status: / Current Living Situation: Alone How many Children do You have: 0 Other Information That Helps Us Care for You: No Feels Safe at Home: Yes Safety Concerns: Feels Safe At This Time Assistive Devices: None Physical Exam Constitutional: WD/WN, vitals as above Eyes: PERRL, conjunctivae normal, anicteric sclerae Neck: normal visual inspection Respiratory: no cough Auscultation: no rales, no rhonchi and no wheezes Cardiovascular: RRR, no murmur, no edema Heart Sounds: normal S1 and normal S2; no murmur Vessels: no JVD Extremities: no edema Chest (Breasts): Chest: + pacemaker Gastrointestinal (Abdomen): Inspection/Auscultation: abdomen normal to inspection and normal bowel sounds; abdomen not distended Percussion/Palpation: + abdomen tender (epigastric region tender to deep palpitations) and abdomen soft Musculoskeletal: no cyanosis or clubbing, extremities motor strength 5/5 Skin: no rashes, warm and dry Neurologic: PERRL, EOMI, accommodation nl, no face palsy, no dysarthria Results & Data ([facility]) Vital Signs (Past 12 Hours) Vital Signs Temp Pulse Pulse Pulse Resp BP BP 04/26/22 07:48 36.8 C 93 H 18 119/72 04/26/22 04:41 37.2 C 69 18 111/77 04/26/22 02:00 73 18 149/94 H 04/26/22 01:00 36.8 C 78 18 176/114 H 04/25/22 23:05 37.1 C 73 67 18 169/99 H 04/25/22 22:40 36.2 C L 73 18 189/102 H Pulse Ox 04/26/22 07:48 94 04/26/22 04:41 95 04/26/22 02:00 97 04/26/22 01:00 97 04/25/22 23:05 96 04/25/22 22:40 98 Laboratory Results Cardiac Enzymes 04/25/22 04/26/22 04/26/22 Range/Units 23:45 00:43 05:58 AST 20 (13-39) U/L Troponin I High Sens 6.5 6.6 6.6 (0-14) pg/ml CBC 04/25/22 04/26/22 Range/Units 23:45 05:58 WBC 7.64 7.51 (4.8-10.8) K/uL RBC 4.72 4.37 (4.2-5.4) M/uL Hgb 14.4 13.8 (12.0-16.0) g/dL Hct 43.0 39.8 (37-47) % Plt Count 217 207 (130-400) K/uL Neut # (Auto) 5.17 4.91 (1.4-6.5) K/uL Lymph # (Auto) 1.91 1.92 (1.2-3.4) K/uL Foard # (Auto) 0.41 0.52 (0.11-0.59) K/uL Eos # (Auto) 0.10 0.10 (0-0.5) K/uL Baso # (Auto) 0.02 0.03 (0-0.2) K/uL Comprehensive Metabolic Panel 04/25/22 04/26/22 Range/Units 23:45 05:58 Sodium 138 138 (136-145) mmol/L Potassium 4.0 3.8 (3.5-5.1) mmol/L Chloride 102 103 (98-107) mmol/L Carbon Dioxide 27 26 (21-32) mmol/L BUN 28 H 21 (6-23) mg/dl Creatinine 0.79 0.72 (0.6-1.2) mg/dl Glucose 110 H 107 H (70-99(Fasting)) mg/dl Calcium 10.5 H 9.7 (8.5-10.1) mg/dl AST 20 (13-39) U/L ALT 17 (7-52) U/L Alkaline Phosphatase 55 (34-104) U/L Total Protein 7.6 (6.0-8.3) gm/dl Albumin 5.2 H (3.4-5.0) gm/dl Intake and Output 04/25/22 04/26/22 04/26/22 22:59 06:59 14:59 Other: Other Intake Source NPO # Unmeasured Voids 1 Weight 55.2 kg 54.2 kg Weight Measurement Method Chair Scale Standing Scale
--- NOTE | 2022-04-26 09:08 | History and Physical Report ---
DATE OF ADMISSION: 03/26/2022. CHIEF COMPLAINT: Epigastric pain and left upper extremity pain. HISTORY OF PRESENT ILLNESS: This is an 87-year-old female with past medical history significant for prediabetes, hyperlipidemia, paroxysmal atrial fibrillation, tachybrady syndrome, status post pacemaker, hypertension, GERD, gastroparesis, chronic kidney disease stage III, senile osteoporosis, restless legs syndrome, history of colonic diverticulitis, who lives alone at home, ambulates with support, presents with epigastric pain and also left upper extremity pain. The patient states that she is having pain from shoulder to elbow region left side on and off since about a week, but today she developed severe epigastric tenderness also the pain in left upper extremity was in the shoulder and below the elbow region, which prompted her to come to the ER. The pain left upper extremity pain got better by itself. She still has epigastric pain. Resting comfortably. Hemodynamically stable. Denies any headache, no dizziness, no blurred visions, no runny nose, no sore throat. Occasional cough. No fevers, no shortness of breath. No nausea, no abdominal pain. Normal bowel and bladder movements. ALLERGIES: BACTRIM, PENICILLINS, PROPOXYPHENE, EFFEXOR, AMLODIPINE, ATORVASTATIN, ENALAPRIL, ERYTHROMYCIN BASE, FENTANYL, ZOFRAN, TOPAMAX, TRAMADOL, CLINDAMYCIN, CODEINE, QUINOLONES. PAST MEDICAL HISTORY: As mentioned above. PAST SURGICAL HISTORY: EGD, ERCP with lithotripsy, lumbar laminectomy, cataract surgery, cholecystectomy. MEDICATIONS: The patient is on Tylenol 650 mg p.o. q. 6 hours p.r.n., vitamin D 50 mcg p.o. daily, dicyclomine 10 mg p.o. q.i.d. p.r.n., Eliquis 2.5 mg p.o. b.i.d., gabapentin 100 mg p.o. b.i.d., metoprolol tartrate 25 mg p.o. at bedtime, 50 mg p.o. a.m., omeprazole 40 mg p.o. daily, Prolia subcutaneous every 180 days, rosuvastatin 5 mg p.o. at bedtime, sumatriptan 100 mg p.o. daily p.r.n., terazosin 1 mg p.o. at bedtime. FAMILY HISTORY: Significant for brother has heart disorder, father has heart disorder; sister has heart disorder; mother has hip fracture. SOCIAL HISTORY: Lives alone. No smoking. Alcohol rarely. No drug use. REVIEW OF SYSTEMS: As per HPI. Rest of the review of systems is negative. PHYSICAL EXAMINATION: GENERAL: The patient is old and frail, not in acute distress. VITAL SIGNS: Temperature 36.8, pulse 73, respiratory rate 18, blood pressure 149/94, oxygen 97% on room air. HEENT: Pupils equal, round and reactive to light. Oral mucosa moist. NECK: No JVD, no neck masses. CARDIOVASCULAR: S1 and S2 heard. Regular rate and rhythm. No murmur, no gallop. RESPIRATORY SYSTEM: Normal AP diameter. No accessory muscle use. No wheezing, no crackles. ABDOMEN: Soft. Bowel sounds are present. Epigastric tenderness present. No guarding. No rigidity. CENTRAL NERVOUS SYSTEM: Cranial nerves II through XII are grossly intact, nonfocal. EXTREMITIES: No edema, no erythema. LABORATORY DATA: WBC 7.6, hemoglobin 14.4, hematocrit 43, platelets 217. Sodium 138, potassium 4, chloride 102, bicarbonate 27, BUN 28, creatinine 0.7, serum glucose 110, calcium 10.5, magnesium 2.1, total bilirubin 0.5, AST 20, ALT 17, alkaline phosphatase 55. Troponin I high sensitivity first check was 6.5, second is 6.6. Lipase 40. TSH is 4.6, free T4 0.8. SARS-CoV-2 PCR negative. Influenza A and B PCR negative. RSV PCR negative. IMAGING: Chest x-ray, no acute findings. EKG: Atrial paced rhythm with prolonged AV conduction at a rate of 71, no significant change was found. ASSESSMENT AND PLAN: An 87-year-old female who presents with epigastric pain and also left upper extremity pain. 1. Epigastric and left upper extremity pain: Rule out acute coronary syndrome Initial workup is negative. Follow serial enzymes, echo, keep n.p.o. and consult cardiology for further recommendation. For the epigastric tenderness, continue with dicyclomine and Pepcid b.i.d. The patient is already on omeprazole. 2. History of paroxysmal atrial fibrillation, tachybrady syndrome, status post pacemaker: Continue home metoprolol and Eliquis. 3. Hyperlipidemia: On statin. 4. Hypertension: On metoprolol and terazosin. 5. History of migraines: On sumatriptan p.r.n. 6. Chronic kidney disease stage III, creatinine of 0.7. We will follow the labs. 7. Prediabetes: Follow HbA1c levels. 8. Deep venous thrombosis prophylaxis: On Eliquis. DISPOSITION: Closely monitor in the med tele. PT/OT prior to discharge. Social Service to help with discharge planning. Level 1 full code. Job ID: [id number] MTDD
[2022-04-26] MEDS: CHOLECALCIFEROL 1,000 UNITS 25 MCG TAB PO SCH (11:30)
--- NOTE | 2022-04-26 12:36 | XRay Report ---
XR shoulder LT min 2V routine HISTORY: 87 years-old Female shoulder pain acute left-sided shoulder pain COMPARISON: Chest radiograph 04/25/2022 TECHNIQUE: 3 views of the left shoulder FINDINGS: Left subclavian pacer. Demineralized appearance of the bones. Mild glenohumeral and AC joint osteoart hritis. No acute fracture or dislocation. IMPRESSION: No acute fracture or dislocation. ACT 112: Negative or not required by law. The above report was generated using voice recognition software. It may contain grammatical, syntax o r spelling errors. Electronically signed by: Roe Joseph M.D. 04/26/2022 12:35 PM
--- NOTE | 2022-04-26 12:43 | CT Scan Report ---
CT OF THE ABDOMEN AND PELVIS WITHOUT CONTRAST CLINICAL HISTORY: Epigastric pain. COMPARISON STUDY: CT of the abdomen and pelvis January 14, 2022. TECHNIQUE: Axial images of the abdomen and pelvis were obtained without IV contrast. Images were revi ewed in the axial, sagittal, and coronal planes. Automated exposure control was utilized for the willi dy. A dose lowering technique was utilized adhering to the principles of ALARA. FINDINGS: Pacer leads are partially imaged. There is cardiomegaly. Mild bronchiectasis within the rig ht middle lobe and lingula is incidentally noted. Pneumobilia is noted. No pneumatosis, free air or p ortal venous gas is present. There is no significant biliary ductal dilatation status post cholecyste ctomy. 4 mm calculus within the lower pole of the right kidney is noted. Low-attenuation bilateral re nal lesions are shown to likely reflect cysts on prior contrast enhanced exam. There are no ureteral calculi. There is no hydronephrosis or hydroureter. No evidence for a bowel obstruction. Colonic dive rticulosis is noted without evidence for acute diverticulitis. There is no free fluid. No lymphadenop athy is present. No acute fracture or suspicious lesion is identified within the visualized skeletal structures. The appendix is normal. IMPRESSION: 1. 4 mm right renal calculus. No ureteral calculi or hydronephrosis. 2. Colonic diverticulosis without evidence for acute diverticulitis. 3. No bowel obstruction. ACT 112: Negative or not required by law. Electronically signed by: Jaden Orozco M.D. 04/26/2022 12:42 PM
--- NOTE | 2022-04-26 14:09 | Electrocardiogram Report ---
Test Reason : Blood Pressure : / mmHG Vent. Rate : 071 BPM Atrial Rate : 071 BPM P-R Int : 264 ms QRS Dur : 088 ms QT Int : 394 ms P-R-T Axes : 065 -10 034 degrees QTc Int : 428 ms Atrial-paced rhythm with prolonged AV conduction Abnormal ECG When compared with ECG of 21-NOV-2021 07:50, No significant change was found Confirmed by Tuan Bee ([id number]) on 04/26/2022 2:09:38 PM Referred By: REFERRED SELF Confirmed By:Tuan Bee
--- NOTE | 2022-04-26 14:11 | Electrocardiogram Report ---
Test Reason : Blood Pressure : / mmHG Vent. Rate : 088 BPM Atrial Rate : 088 BPM P-R Int : 264 ms QRS Dur : 084 ms QT Int : 380 ms P-R-T Axes : 099 -04 059 degrees QTc Int : 459 ms Atrial-paced rhythm with prolonged AV conduction with Premature atrial complexes Abnormal ECG When compared with ECG of 25-APR-2022 22:52, (unconfirmed) Premature atrial complexes are now Present Confirmed by Tuan Bee ([id number]) on 04/26/2022 2:11:32 PM Referred By: REFERRED SELF Confirmed By:Tuan Bee
--- NOTE | 2022-04-26 14:13 | Electrocardiogram Report ---
Test Reason : Blood Pressure : / mmHG Vent. Rate : 087 BPM Atrial Rate : 086 BPM P-R Int : 254 ms QRS Dur : 080 ms QT Int : 390 ms P-R-T Axes : 072 -18 073 degrees QTc Int : 469 ms Atrial-paced rhythm with prolonged AV conduction Nonspecific T wave abnormality Abnormal ECG When compared with ECG of 26-APR-2022 03:29, (unconfirmed) Premature atrial complexes are no longer Present Confirmed by Tuan Bee ([id number]) on 04/26/2022 2:13:34 PM Referred By: REFERRED SELF Confirmed By:Tuan Bee
--- NOTE | 2022-04-26 15:47 | Gastrointestinal Consultation ---
Date of Consultation April 26, 2022 Assessment & Plan (1) Epigastric pain: Differentials considered include GERD, gastritis, biliary colic. Will add po famotidine BID prn epigastric discomfort. Will plan for NPO after midnight and consider EGD or EGD/EUS tomorrow morning dependent on pt symptoms and OR/endoscopy suite availability etc. Supervising Physician Co-Signing Physician Notes Attg add: I interviewed and examined pt, reviewed chart and labs. Pt with episodic abdominal pain "typically at night after I take my pills" for several weeks. Prior w/u has included CTs in January and Nov. Seen by Dr. Lazo as outpt, scheduled for EUS/ERCP in September. Pain acutely worse yesterday and associated with palpitations, presented to hospital. EKG WNL, tele with paced rhythm, trops neg, echo unremarkable. LFT's unermarkable, lipase WNL, CT shows pneumobilia. Denies symptoms at present. A/P: - Pill gastritis? gastroparesis? WIll expedite EGD and EUS; please hold eliquis in anticipation of this.. Adv diet and ok for discharge if rossi PO.. History of Present Illness Reason for Consultation: Epigastric pain Requesting Physician: Dr. Villagran Attending Physician: Carlitos Blackburn MD History of Present Illness Ms. Clau Xiong is an 87 yr old female pt of Dr. Villagran w a hx of pre- DM, A fib (on Eliquis),, tachy-michael w ICD, HTN, GERD, CKD, gastroparesis, osteoporosis, RLS, diverticulitis. She presented to the ED yesterday for epigastric pain radiating to the left shoulder, Left upper extremity. On arrival, no elevation in troponin, EKG w/o acute changes, echo w normal EF, grade I diastolic dysfunction and cardiology opinion is that pain was more likely GI in origin. CT showing post cholecystectomy, normal bile ducts and diverticulosis w/o diverticulitis. LFTs and lipase are normal. The pt describes the pain as a "hurt, like hunger, like a pressure." It did not radiate to the back. She has had episodes of similar pain. She does not have burning or feeling of reflux. No nausea or vomiting. She had undergone cholecystectomy and ERCP in 2019 and this pain does not feel the same as that. She had seen Dr. Lazo in GI clinic recently who recommended EGD/EUS and it is scheduled for first available OP which is July. She hasn't perceived constipation but was advised a daily laxative which she hasn't yet started. Dicyclomine was not helpful for the pain. She is seen/examined while she is resting in bed. Her pain resolved this afternoon. She tolerated a regular consistency lunch. She is hemodynamically stable. 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 Allergies Allergy/AdvReac Type Severity Reaction Status Date / Time sulfamethoxazole Allergy Intermediate RASH Verified 04/26/22 01:42 trimethoprim Allergy Intermediate RASH Verified 04/26/22 01:42 Penicillins Allergy Mild Rash Verified 04/26/22 01:42 propoxyphene Allergy Mild Unknown Verified 04/26/22 01:42 Sulfa (Sulfonamide Allergy Mild Rash Unverified 04/26/22 01:42 Antibiotics) venlafaxine [From Effexor] Allergy Mild Hives/Itchy Unverified 04/26/22 01:42 /Rash amlodipine AdvReac Intermediate LEGS AND Verified 04/26/22 01:42 FEET GET TIGHT atorvastatin AdvReac Intermediate Inc Lft Unverified 04/26/22 01:42 after Cholecystectomy enalapril AdvReac Intermediate tightness Verified 04/26/22 01:42 in ankles erythromycin base AdvReac Intermediate Vomiting Verified 04/26/22 01:42 fentanyl AdvReac Intermediate SEVERE Verified 04/26/22 01:42 N&V;DIZZY ondansetron [From Zofran] AdvReac Intermediate Nausea Verified 04/26/22 01:42 topiramate [From Topamax] AdvReac Intermediate "FINGERS Verified 04/26/22 01:42 NUMB" tramadol [From Ultram] AdvReac Intermediate Vomiting Verified 04/26/22 01:42 clindamycin AdvReac Mild Nausea Verified 04/26/22 01:42 codeine AdvReac Mild SICK TO Verified 04/26/22 01:42 STOMACH Quinolones AdvReac Mild N&V Verified 04/26/22 01:42 Home Medications Medication Instructions Recorded Confirmed Type denosumab 60 mg/mL subcutaneous 1 dose SUBCUT Q180D 01/14/19 04/26/22 History syringe (Prolia) sumatriptan succinate 100 mg tablet 100 mg PO DAILY PRN 03/10/19 06/20/22 History terazosin 1 mg capsule 1 mg PO HS 08/29/19 04/26/22 History apixaban 2.5 mg tablet (Eliquis) 2.5 mg PO BID 02/02/20 04/26/22 History gabapentin 100 mg capsule 100 mg PO BID 02/02/20 04/26/22 History dicyclomine 10 mg capsule 10 mg PO QID PRN 06/06/20 04/26/22 History acetaminophen 325 mg tablet 650 mg PO Q6 PRN 08/03/20 04/26/22 History (Tylenol) metoprolol tartrate 25 mg tablet 25 mg PO HS 10/13/20 04/26/22 History metoprolol tartrate 25 mg tablet 50 mg PO QAM 10/13/20 04/26/22 History cholecalciferol (vitamin D3) 25 50 mcg PO QDL 01/21/21 04/26/22 History mcg (1,000 unit) capsule (Vitamin D3) omeprazole 40 mg capsule,delayed 40 mg PO DAILYBB 01/21/21 04/26/22 History release rosuvastatin 5 mg tablet 5 mg PO HS 10/06/21 04/26/22 History Patient History Medical History Diverticulosis Gastroparesis GERD (gastroesophageal reflux disease) History of skin cancer Hyperlipidemia Hypertension Migraines On anticoagulant therapy Sensorineural hearing loss (SNHL) of both ears Thoracic aortic aneurysm Mildly dilated on echo 02/2019 per cardiology, but not seen on 08/2019 echo at [facility]. Surgical History History of breast biopsy History of cataract surgery History of cholecystectomy 02/02/2020; [facility]; MAC #3, ETT 7.0. No complications. History of cystoscopy W/ STONE EXTRACTION History of ERCP with stone removal and stent placement 02/28 [place] History of lumbar surgery History of Mohs micrographic surgery for skin cancer History of tooth extraction Status post trigger finger release Family History Other Coronary heart disease No family history of adverse response to anesthesia Social History Smoking Status: Never smoker Second Hand Exposure: No; Hx Alcohol Use: No Hx Substance Use: No Preferred Language: Belarusian Communication Ability: Effective Cattle Rancher Required: No Beliefs That Will Affect Care: None marital status: / Current Living Situation: Alone How many Children do You have: 0 Other Information That Helps Us Care for You: No Feels Safe at Home: Yes Safety Concerns: Feels Safe At This Time Assistive Devices: None Review of Systems Review of Systems: ROS: Gen: Denies weakness, fevers, weight loss Eyes: No eye redness, or pain, no recent vision changes Resp: No SOB, no cough Cardio: No palpitations/irregular beats, no chest pain GI: No abdominal pain, no nausea/vomiting : Denies pain on urination Skin: No jaundice, itching or new rashes Psych: is under more stress. Is planning a move to a intermediate community in [place] so will have a lot of work to do including selling her home etc. Physical Exam Constitutional: well developed, + thin and cooperative Eyes: PERRL, conjunctivae normal, anicteric sclerae ENMT: external ear and nose normal, oropharynx normal Neck: trachea midline, no thyromegaly Respiratory: normal respiratory effort, lungs clear to auscultation Cardiovascular: RRR, no murmur, no edema Gastrointestinal (Abdomen): Inspection/Auscultation: abdomen normal to inspection and normal bowel sounds; abdomen not distended and no abdominal edema Percussion/Palpation: + abdomen tender (Mild epigastric tenderness. No signs of acute abdomen.) and abdomen soft; no guarding and abdomen not rigid Skin: no rashes, warm and dry normal turgor and + pallor Neurologic: PERRL, EOMI, accommodation nl, no face palsy, no dysarthria awake; not confused Psychiatric: A+Ox3, euthymic affect Orientation: cooperative Results & Data ([facility]) Vital Signs (Past 12 Hours) Vital Signs Temp Pulse Resp BP Pulse Ox 04/26/22 14:59 36.8 C 61 18 128/79 95 04/26/22 11:30 36.7 C 61 18 121/74 95 04/26/22 07:48 36.8 C 93 H 18 119/72 94 04/26/22 04:41 37.2 C 69 18 111/77 95 Laboratory Results WBC 7.5, Hb 13.8, Hct 39.8, glucose 207, Na 138, K 3.8, Cl 103, CO2 26, BUN 21, Cr 0.72. LFTs, lipase are normal. Diagnostic Findings Non contrast CTAP 04/26/22: 1. 4 mm right renal calculus. No ureteral calculi or hydronephrosis. 2. Colonic diverticulosis without evidence for acute diverticulitis. 3. No bowel obstruction.
--- NOTE | 2022-04-26 18:06 | Hospitalist Progress Note ---
Date of Service April 26, 2022 Assessment & Plan (1) Epigastric pain: Plan: Patient is an 87 yr female who presents with epigastric pain and also left upper extremity pain. Epigastric Pain DD: Gastritis, peptic ulcer disease Less likely Cardiac Origin --CT ABD:4 mm right renal calculus. No ureteral calculi or hydronephrosis. Colonic diverticulosis without evidence for acute diverticulitis. No bowel obstruction. --Normal LFTs -- Troponins negative; ECHO: No regional wall motion abnormality; EKG showed non specific T wave changes Appreciate cardiology input N.p.o. after midnight for possible EGD Continue PPI, added Pepcid Paroxysmal atrial fibrillation Tachybrady syndrome S/P pacemaker Pacemaker interrogation as per cardiology Continue Eliquis for anticoagulation Continue metoprolol Hyperlipidemia: On statin Hypertension: On metoprolol and terazosin CKD III Cr at baseline Monitor renal function Avoid nephrotoxic agents as able Prediabetes HbA1C: 6.0 H/O Migraine Stable DVT Px: Eliquis Code Status Full Code Disposition PT/OT prior to discharge Admission and Anticipated Discharge Date Admission Date: April 26, 2022 Subjective Patient is seen and examined at bedside States having epigastric pain but slightly better than yesterday Denies any nausea, vomiting, chest pain, shortness of breath Also reports intermittent left shoulder pain Offers no other complaints Review of Systems Review of Systems: All systems reviewed & are unremarkable except as noted in Subjective Physical Exam Physical Exam: Physical Exam: Vitals signs as noted above General Appearance:Thin, elderly, no apparent distress, +Mild hearing impairment Head: normocephalic, Atraumatic Eyes: normal inspection, EOMI Neck: supple, Trachea midline Respiratory/Chest: Normal breath sounds, CTA, No accessory muscle use Cardiovascular: S1, S2, No murmur Abdomen/GI:Soft, Epigastric tender, Bowel sounds present Extremities/Musculoskeletal:normal inspection, no edema Neurologic/Psych:AAOX3, grossly no focal neurological deficits Skin: normal color, warm Results & Data Results & Data ([facility]) Vital Signs (Past 12 Hours) Vital Signs Temp Pulse Pulse Resp BP Pulse Ox 04/26/22 15:57 60 04/26/22 14:59 36.8 C 61 18 128/79 95 04/26/22 11:30 36.7 C 61 18 121/74 95 04/26/22 09:00 85 04/26/22 07:48 36.8 C 93 H 18 119/72 94 Laboratory Results Short CBC 04/25/22 04/26/22 Range/Units 23:45 05:58 WBC 7.64 7.51 (4.8-10.8) K/uL Hgb 14.4 13.8 (12.0-16.0) g/dL Hct 43.0 39.8 (37-47) % Plt Count 217 207 (130-400) K/uL BMP 04/25/22 04/26/22 23:45 05:58 Sodium 138 138 Potassium 4.0 3.8 Chloride 102 103 Carbon Dioxide 27 26 BUN 28 H 21 Creatinine 0.79 0.72 Glucose 110 H 107 H Calcium 10.5 H 9.7 Liver Function 04/25/22 Range/Units 23:45 Total Bilirubin 0.5 (0.2-1.0) mg/dl AST 20 (13-39) U/L ALT 17 (7-52) U/L Alkaline Phosphatase 55 (34-104) U/L Albumin 5.2 H (3.4-5.0) gm/dl
[2022-04-26] MEDS ORDERED: TERAZOSIN HCL 1 MG CAP PO SCH (21:00)
[2022-04-26] MEDS ORDERED: METOPROLOL TARTRATE 25 MG TAB PO SCH (21:00)
[2022-04-26] MEDS ORDERED: ROSUVASTATIN CALCIUM 5 MG TAB PO SCH (21:00)
[2022-04-27] MEDS: PANTOprazole 40 MG TAB PO SCH (05:20)
[2022-04-27] MEDS: SUMAtriptan succinate 100 MG TAB PO PRN (06:01)
[2022-04-27 08:04] LABS: BUN Creatinine Ratio 29.7 (10-20); Calcium 9.3 mg/dl (8.5-10.1); Creatinine Clr Calc Pharmacy 30.2 ml/min; Est GFR (African American) 58.4 ml/min; Est GFR (Non-African American) 50.4 ml/min; Potassium 4.5 mmol/L (3.5-5.1)
[2022-04-27] MEDS: FAMOTIDINE 20 MG in SYRINGE 3 ML IV SCH (08:14)
[2022-04-27] MEDS: APIXABAN 2.5 MG TAB PO SCH (08:14)
[2022-04-27] MEDS: GABAPENTIN 100 MG CAP PO SCH (08:14)
[2022-04-27] MEDS: METOPROLOL TARTRATE 50 MG TAB PO SCH (08:15)
--- NOTE | 2022-04-27 10:13 | Hospitalist Progress Note ---
Date of Service April 27, 2022 Assessment & Plan (1) Epigastric pain: Plan: Patient is an 87 yr female who presents with epigastric pain and also left upper extremity pain. Epigastric Pain DD: Gastritis, peptic ulcer disease Less likely Cardiac Origin --CT ABD:4 mm right renal calculus. No ureteral calculi or hydronephrosis. Colonic diverticulosis without evidence for acute diverticulitis. No bowel obstruction. --Normal LFTs -- Troponin negative; ECHO: No regional wall motion abnormality; EKG showed non specific T wave changes Appreciate cardiology input Continue PPI, added Pepcid Symptoms resolved Planned for outpatient EGD/EUS +- ERCP on 04/30/22 as outpatient Needs follow-up with gastroenterology upon discharge Paroxysmal atrial fibrillation Tachybrady syndrome S/P pacemaker Pacemaker interrogation as per cardiology Continue Eliquis for anticoagulation Continue metoprolol Hyperlipidemia: On statin Hypertension: On metoprolol and terazosin CKD III Cr at baseline Monitor renal function Avoid nephrotoxic agents as able Prediabetes HbA1C: 6.0 H/O Migraine Stable DVT Px: Eliquis Code Status Full Code Disposition PT/OT prior to discharge Admission and Anticipated Discharge Date Admission Date: April 26, 2022 Subjective Patient is seen and examined at bedside States feeling well today Epigastric pain, shoulder pain resolved Denies any nausea, vomiting, chest pain, shortness of breath Discussed with GI today Eager to get discharged Review of Systems Review of Systems: All systems reviewed & are unremarkable except as noted in Subjective Physical Exam Physical Exam: Physical Exam: Vitals signs as noted above General Appearance:Thin, elderly, no apparent distress, +Mild hearing impairment Head: normocephalic, Atraumatic Eyes: normal inspection, EOMI Neck: supple, Trachea midline Respiratory/Chest: Normal breath sounds, CTA, No accessory muscle use Cardiovascular: S1, S2, No murmur Abdomen/GI:Soft, Epigastric tender, Bowel sounds present Extremities/Musculoskeletal:normal inspection, no edema Neurologic/Psych:AAOX3, grossly no focal neurological deficits Skin: normal color, warm Results & Data Results & Data ([facility]) Vital Signs (Past 12 Hours) Vital Signs Temp Pulse Pulse Resp BP BP Pulse Ox 04/27/22 08:22 81 123/87 04/27/22 08:17 36.7 C 78 18 118/72 91 04/27/22 04:25 37 C 76 20 92/55 L 95 04/26/22 23:31 60 04/26/22 23:05 36.5 C 78 16 108/63 95 Laboratory Results BMP 04/27/22 07:27 Sodium 138 Potassium 4.5 Chloride 104 Carbon Dioxide 28 BUN 30 H Creatinine 1.01 Glucose 108 H Calcium 9.3
[2022-04-27] MEDS: CHOLECALCIFEROL 1,000 UNITS 25 MCG TAB PO SCH (10:32)
--- NOTE | 2022-04-27 10:35 | Discharge Summary ---
Date of Service April 27, 2022 Admission HPI Per Admitting Provider CHIEF COMPLAINT: Epigastric pain and left upper extremity pain. HISTORY OF PRESENT ILLNESS: This is an 87-year-old female with past medical history significant for prediabetes, hyperlipidemia, paroxysmal atrial fibrill ation, tachybrady syndrome, status post pacemaker, hypertension, GERD, gastroparesis, chronic kidney disease stage III, senile osteoporosis, restless legs syndrome, history of colonic diverticulitis, who lives alone at home, ambulates with support, presents with epigastric pain and also left upper extremity pain. The patient states that she is having pain from shoulder to elbow region left side on and off since about a week, but today she developed severe epigastric tenderness also the pain in left upper extremity was in the shoulder and below the elbow region, which prompted her to come to the ER. The pain left upper extremity pain got better by itself. She still has epigastric pain. Resting comfortably. Hemodynamically stable. Denies any headache, no dizziness, no blurred visions, no runny nose, no sore throat. Occasional cough. No fevers, no shortness of breath. No nausea, no abdominal pain. Normal bowel and bladder movements. Admission Exam Per Admitting Provider PHYSICAL EXAMINATION: GENERAL: The patient is old and frail, not in acute distress. VITAL SIGNS: Temperature 36.8, pulse 73, respiratory rate 18, blood pressure 149/94, oxygen 97% on room air. HEENT: Pupils equal, round and reactive to light. Oral mucosa moist. NECK: No JVD, no neck masses. CARDIOVASCULAR: S1 and S2 heard. Regular rate and rhythm. No murmur, no gallop. RESPIRATORY SYSTEM: Normal AP diameter. No accessory muscle use. No wheezing, no crackles. ABDOMEN: Soft. Bowel sounds are present. Epigastric tenderness present. No guarding. No rigidity. CENTRAL NERVOUS SYSTEM: Cranial nerves II through XII are grossly intact, nonfocal. EXTREMITIES: No edema, no erythema. Principal Diagnosis Epigastric Pain Discharge Data Allergies Allergy/AdvReac Type Severity Reaction Status Date / Time sulfamethoxazole Allergy Intermediate RASH Verified 04/26/22 01:42 trimethoprim Allergy Intermediate RASH Verified 04/26/22 01:42 Penicillins Allergy Mild Rash Verified 04/26/22 01:42 propoxyphene Allergy Mild Unknown Verified 04/26/22 01:42 Sulfa (Sulfonamide Allergy Mild Rash Unverified 04/26/22 01:42 Antibiotics) venlafaxine [From Effexor] Allergy Mild Hives/Itchy Unverified 04/26/22 01:42 /Rash amlodipine AdvReac Intermediate LEGS AND Verified 04/26/22 01:42 FEET GET TIGHT atorvastatin AdvReac Intermediate Inc Lft Unverified 04/26/22 01:42 after Cholecystectomy enalapril AdvReac Intermediate tightness Verified 04/26/22 01:42 in ankles erythromycin base AdvReac Intermediate Vomiting Verified 04/26/22 01:42 fentanyl AdvReac Intermediate SEVERE Verified 04/26/22 01:42 N&V;DIZZY ondansetron [From Zofran] AdvReac Intermediate Nausea Verified 04/26/22 01:42 topiramate [From Topamax] AdvReac Intermediate "FINGERS Verified 04/26/22 01:42 NUMB" tramadol [From Ultram] AdvReac Intermediate Vomiting Verified 04/26/22 01:42 clindamycin AdvReac Mild Nausea Verified 04/26/22 01:42 codeine AdvReac Mild SICK TO Verified 04/26/22 01:42 STOMACH Quinolones AdvReac Mild N&V Verified 04/26/22 01:42 Consultations 04/26/22 01:03 ED Decision to Admit Stat 04/26/22 08:00 Consult Cardiology Routine 04/26/22 14:37 Consult Gastroenterology Routine Ordered Studies 04/26/22 11:32 CT abd pelvis wo con Urgent Hospital Course (1) Epigastric pain: Patient is an 87 yr female who presents with epigastric pain and also left upper extremity pain. Epigastric Pain DD: Gastritis, peptic ulcer disease Less likely Cardiac Origin --CT ABD:4 mm right renal calculus. No ureteral calculi or hydronephrosis. Colonic diverticulosis without evidence for acute diverticulitis. No bowel obstruction. --Normal LFTs -- Troponin negative; ECHO: No regional wall motion abnormality; EKG showed non specific T wave changes Appreciate cardiology input Continue PPI, added Pepcid Symptoms resolved Planned for outpatient EGD/EUS +- ERCP on 04/30/22 as outpatient Needs follow-up with gastroenterology upon discharge Paroxysmal atrial fibrillation Tachybrady syndrome S/P pacemaker Pacemaker interrogation as per cardiology Continue Eliquis for anticoagulation Continue metoprolol Hyperlipidemia: On statin Hypertension: On metoprolol and terazosin CKD III Cr at baseline Monitor renal function Avoid nephrotoxic agents as able Prediabetes HbA1C: 6.0 H/O Migraine Stable DVT Px: Eliquis Code Status Full Code Disposition PT/OT prior to discharge Total Time Total Time Spent Total Time Spent (In Minutes): 40 minutes Discharge Plan Discharge Items Patient Disposition: Home - Self-Care Reason For Visit: EPIGASTRIC AND LEFT ARM PAIN Discharge Diagnosis: Epigastric Pain Condition on Discharge: Good Activity: Per Instructions section Exercise/Sports: Gradually increase as tolerated Non-emergency contact: Primary Care Provider and Brokerage Clerk Call non-emergency contact if: you have any medication questions, your symptoms worsen, your pain is concerning for you and you have a fever Follow-up/Referrals: [facility] Gastroenterology [Other] (The GI office will call you for a follow up appointment/ testing.) [facility] Cardiology [Other] (Date & Time 04/28/2022 2:00 PM Provider [facility] Department Cardiology, [facility] ) Preston Villagran MD [Primary Care Provider] - (Date & Time 05/05/2022 11:20 AMProvider Preston Villagran, [facility] General Internal Medicine [facility] ) Diet: Heart Healthy Addtl Attending Provider Instructions: Follow-up with your primary care physician on 05/05/2022 11:20 AM as scheduled Follow-up with your leather grainer on 04/30/22 for Outpatient EGD/EUS for further evaluation of your epigastric pain as scheduled. --Hold taking your Eliquis (Apixaban) as advised by your leather grainer until the procedure on Tuesday04/30/22. Further instructions as per your leather grainer. Seek immediate medical attention if your symptoms reoccur or worsen Please take all medications as instructed on discharge list below. Please call if you have any questions or problems. You can reach a [facility] hospitalist on duty at [facility] 24 hours a day by calling [phone] Pending Studies at Discharge: No Stand-Alone Forms: My [facility] [employer], Smoking Cessation Medications and DC Order Prescriptions: New famotidine [Pepcid] 20 mg tablet 20 mg PO BID Qty: 14 RF: 0 Continued rosuvastatin 5 mg tablet 5 mg PO HS RF: 0 sumatriptan succinate 100 mg tablet 100 mg PO DAILY PRN (Reason: Migraine Headache) RF: 0 Prolia 60 mg/mL Syringe 1 dose SUBCUT Q180D RF: 0 terazosin 1 mg capsule 1 mg PO HS RF: 0 Eliquis 2.5 mg Tablet 2.5 mg PO BID RF: 0 gabapentin 100 mg Capsule 100 mg PO BID RF: 0 dicyclomine 10 mg capsule 10 mg PO QID PRN (Reason: ABD PAIN) RF: 0 metoprolol tartrate 25 mg tablet 25 mg PO HS RF: 0 metoprolol tartrate 25 mg tablet 50 mg PO QAM RF: 0 acetaminophen [Tylenol] 325 mg Tablet 650 mg PO Q6 PRN (Reason: Pain) RF: 0 omeprazole 40 mg Capsule,Delayed Release(Dr/Ec) 40 mg PO DAILYBB RF: 0 cholecalciferol (vitamin D3) [Vitamin D3] 25 mcg (1,000 unit) Capsule 50 mcg PO QDL RF: 0 Discharge Orders: Discharge Order (Routine); Ordered 04/27/22 Ordered By: Carlitos Kang/Other Patient Handouts: A1C Admission Data Admit Date/Time: 04/26/22 02:07 Attending Provider: Carlitos Blackburn Admit Provider: Feliz Hurtado Primary Care Provider: Preston Villagran Other Providers: Feliz Hurtado ; Miguel Pelletier ; Pam Pineda ; Lu Dobbins ; Talita Latham ; Sherron Madsen ; Logan Vanegas ; Pardeep Lazo ; Dangelo Rush ; León Carter ; Ramila Schultz ; Alice Ricks ; Kasie Couch ; Barbara Woo ; Chrissy Prince
--- NOTE | 2022-04-27 10:38 | Gastroenterology Progress Note ---
Date of Service April 27, 2022 Assessment & Plan (1) Epigastric pain: Plan: Differentials considered include GERD, gastritis, biliary colic. Plan: Okay for discharge from GI standpoint. Patient is being added to the outpatient schedule for this Tuesday here at [facility] for EUS possible ERCP. In the interim, hold the Eliquis and stay on a low-fat diet. Admission and Anticipated Discharge Date Admission Date: April 26, 2022 Supervising Physician Co-Signing Physician Notes Patient with minimal abd pain reported this morning. Willing to go home. Abd exam is benign Labs reviewed Agree with dc from gi standpoint, fup on Tuesday four outpatient eus +/- ercp. Subjective 87, female Presented with epigastric and left arm pain 2 days ago. LFT's unremarkable, lipase WNL, CT shows pneumobilia, Pain resolved yesterday. Tolerating regular consistency diet without pain Review of Systems Review of Systems: ROS: Gen: Denies weakness, fevers, weight loss Eyes: No eye redness, or pain, no recent vision changes Resp: No SOB, no cough Cardio: No palpitations/irregular beats, no chest pain GI: As per HPI otherwise negative : Denies pain on urination Skin: No jaundice, itching or new rashes Psych: is under more stress. Is planning a move to a custodial community in [place] so will have a lot of work to do including selling her home etc. Physical Exam Constitutional: well developed, + thin and cooperative Eyes: PERRL, conjunctivae normal, anicteric sclerae ENMT: external ear and nose normal, oropharynx normal Neck: trachea midline, no thyromegaly Respiratory: normal respiratory effort, lungs clear to auscultation Cardiovascular: RRR, no murmur, no edema Gastrointestinal (Abdomen): Inspection/Auscultation: abdomen normal to inspection and normal bowel sounds; abdomen not distended and no abdominal edema Percussion/Palpation: + abdomen tender (Mild epigastric tenderness. No signs of acute abdomen.) and abdomen soft; no guarding and abdomen not rigid Skin: no rashes, warm and dry normal turgor and + pallor Neurologic: PERRL, EOMI, accommodation nl, no face palsy, no dysarthria awake; not confused Psychiatric: A+Ox3, euthymic affect Orientation: cooperative Results & Data (MN) Vital Signs (Past 12 Hours) Vital Signs Temp Pulse Pulse Resp BP BP Pulse Ox 04/27/22 08:22 81 123/87 04/27/22 08:17 36.7 C 78 18 118/72 91 04/27/22 04:25 37 C 76 20 92/55 L 95 04/26/22 23:31 60 04/26/22 23:05 36.5 C 78 16 108/63 95 Laboratory Results Sodium 138, potassium 4.5, CL 104, CO2 28, BUN 30, CR 1.01 Diagnostic Findings Noncontrast CTAP 04/26/2022: 1. 4 mm right renal calculus. No ureteral calculi or hydronephrosis. 2. Colonic diverticulosis without evidence for acute diverticulitis. 3. No bowel obstruction.
--- NOTE | 2022-04-27 13:36 | Electrocardiogram Report ---
Test Reason : Blood Pressure : / mmHG Vent. Rate : 066 BPM Atrial Rate : 066 BPM P-R Int : 234 ms QRS Dur : 086 ms QT Int : 438 ms P-R-T Axes : 059 012 046 degrees QTc Int : 459 ms Atrial-paced rhythm with prolonged AV conduction Abnormal ECG When compared with ECG of 26-APR-2022 06:18, No significant change was found Confirmed by Tuan Bee ([id number]) on 04/27/2022 1:35:45 PM Referred By: REFERRED SELF Confirmed By:Tuan Bee
== END 2022-04-27 12:02 | disposition home or self-care (01) ==
LOC: 2N 22:38 → ED 22:38 → 2N 04-26 02:29

== ENCOUNTER 2023-02-18 16:52 | Inpatient (IN) ==
--- NOTE | 2023-02-18 17:11 | ED Triage Note ---
Date of Service February 18, 2023 History of Present Illness This patient was briefly evaluated while in triage. An abbreviated physical exam was performed. This patient is a 88-year-old Female who presents to the ED for evaluation of abdominal pain. Pt. had stent placed yesterday for kidney stones. This was coming out this morning, so she was advised by urology to remove it. She did pull the stent but states "I'm in more pain now than I was before." Physical Exam VITALS: Vitals are noted on the nurse's note and reviewed by myself. GENERAL: This is an 88 year old female, in no acute distress, nondiaphoretic, well-developed well-nourished. SKIN: No obvious rashes, edema, erythema HEAD: Normocephalic atraumatic. EYES: Conjunctivae without injection, sclerae without icterus. NECK: No JVD. LUNGS: No retractions or accessory muscle use. MUSCULOSKELETAL: Normal gait. NEURO: Patient was alert and oriented to person place and time. No focal neurological deficits. Initial orders for labs and / or imaging were placed and patient was placed in the waiting area until a bed is available. Please see further documentation for the full ED course.
[2023-02-18 18:54] LABS: Basophils # (auto) 0.03 K/uL (0-0.2); Basophils % (auto) 0.2 %; Eosinophils # (auto) 0.03 K/uL (0-0.50); Eosinophils % (auto) 0.2 %; Hematocrit (blood only) 38.7 % (37.0-47.0); Hemoglobin 13.3 g/dl (12.0-16.0); Immature Granulocytes # (auto) 0.07 K/uL (0.01-0.20); Immature Granulocytes % (auto) 0.6 %; Lymphocytes # (auto) 1.68 K/uL (1.2-3.4); Lymphocytes % (auto) 13.2 %; Mean Corpuscular Hemoglobin 31.1 pg (25.0-34.0); Mean Corpuscular Hgb Conc 34.4 g/dL (32.0-36.0); Mean Corpuscular Volume 90.6 fL (80.0-100.0); Mean Platelet Volume 9.5 fL (9.4-12.4); Monocytes % (auto) 5.5 %; Neutrophils # (auto) 10.18 K/uL (1.40-6.50); Neutrophils % (auto) 80.3 %; Platelet Count 239 K/uL (130-400); RDW Coefficient of Variation 12.8 % (11.5-14.5); RDW Standard Deviation 42.1 fL (36.4-46.3); Red Blood Count 4.27 M/uL (4.20-5.40); White Blood Count 12.69 K/ul (4.8-10.8)
[2023-02-18 19:11] LABS: Alanine Aminotransferase 17 U/L (7-52); Albumin Level 4.5 gm/dl (3.4-5.0); Alkaline Phosphatase 41 U/L (34-104); Anion Gap 10 (3-11); Aspartate Aminotransferase 17 U/L (13-39); BUN Creatinine Ratio 28.6 (10-20); Bilirubin,Total 0.5 mg/dl (0.2-1.0); Blood Urea Nitrogen 26 mg/dl (6-23); Calcium 9.7 mg/dl (8.6-10.3); Carbon Dioxide 23 mmol/L (21-32); Chloride 103 mmol/L (98-107); Est GFR (African American) 65.7 ml/min; Est GFR (Non-African American) 56.7 ml/min; Globulin 2.3 gm/dl (2.5-4.0); Glucose 159 mg/dl (70-99(Fasting)); Sodium 136 mmol/L (136-145); Total Protein 6.8 gm/dl (6.0-8.3)
[2023-02-18] MEDS ORDERED: KETOROLAC TROMETHAMINE 15 MG/ML VIAL IV STA ×2 (19:14→19:51)
[2023-02-18] MEDS ORDERED: ONDANSETRON INJ 2 MG/ML 2 ML VIAL IV STA (19:22)
[2023-02-18] MEDS ORDERED: SODIUM CHLORIDE 0.9% 1000ML 500 ML IV ONE (19:22)
--- NOTE | 2023-02-18 19:36 | CT Scan Report ---
ABDOMEN AND PELVIS CT WITHOUT CONTRAST CT DOSE: 266.54 mGy.cm HISTORY: Right flank pain. Abdominal pain, stent removed (per urology) TECHNIQUE: Multiaxial CT images of the abdomen and pelvis were performed without contrast. A dose lo wering technique was utilized adhering to the principles of ALARA. COMPARISON STUDY: Abdomen and pelvis CT 01/18/2023. FINDINGS: The lung bases are essentially clear noting mild bronchiectasis within the right middle lob e and lingula. Pacemaker wires are noted. No pneumoperitoneum. No pneumatosis. No acute fractures. 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 The hear t is mildly enlarged. There are 2 duodenal diverticula are again noted. Prior cholecystectomy. The un enhanced liver, spleen, adrenal glands, and pancreas are within normal limits. Normal caliber abdomin al aorta. No retroperitoneal or pelvic lymphadenopathy. No pelvic free fluid. The uterus and adnexa a re unremarkable. Pelvic floor collapse is noted. There is bladder wall thickening with adjacent fat s tranding. There is a small amount of gas within the bladder lumen. Colonic diverticulosis. No evidenc e for acute diverticulitis. No bowel wall thickening or obstruction. The visualized appendix is unrem arkable. Stable bilateral renal hypodense lesions which favor cysts. No definite left renal calculi. No left-sided hydronephrosis. Multiple small stones seen within the right kidney and right renal pelv is. There is a 3 mm nonobstructing stone within the mid to distal right ureter on image 243. This is just proximal to the right iliac vessels. There is moderate right hydroureteronephrosis to the level of the ureterovesical junction without obstructing stone identified. IMPRESSION: 1. Multiple small stones identified within the right kidney and right renal pelvis. There is also a 3 mm nonobstructing stone within the mid to distal right ureter. There is moderate right hydroureteron ephrosis to the level of the ureterovesical junction without a definite obstructing stone. 2. No bowel wall thickening or obstruction. 3. Colonic diverticulosis. No evidence for acute diverticulitis. 4. Additional findings as described above. ACT 112: Negative or not required by law. Electronically signed by: Steve Jim M.D. 02/18/2023 7:34 PM
[2023-02-18 19:40] LABS: Appearance Urine Cloudy (Clear); Bilirubin Urine 2+ (Negative); Blood Urine 3+ (Negative); Color Urine Red; Glucose Urine UA Trace (Negative); Ketones Urine 1+ (Negative); Leukocyte Esterase Urine Negative (Negative); Nitrite Urine Positive (Negative); Protein Urine 3+ (Negative); Specific Gravity Urine 1.025 (1.000-1.030); Urobilinogen Urine Negative (Negative); pH Urine 5.5 (4.5-7.5)
--- NOTE | 2023-02-18 19:40 | Emergency Department Note ---
History of Present Illness General Chief Complaint: Flank Pain Stated Complaint: HAD KIDNEY OPERATION, PAIN ON R SIDE INTO BACK Time Seen by Provider: 02/18/23 19:11 History of Present Illness Provider Complaint: flank pain Onset (ago): 4 hour(s) Pain Consistency: constant Location: R flank Migration to: RLQ Severity: severe Maximum Pain Intensity: 10 Current Pain Intensity: 9 Quality: + stabbing and + sharp Relieved By: + nothing Exacerbated By: + nothing Context: + recent surgery/procedure (Recent stent placed by Dr. Mathews yesterday in the right ureter); no foreign travel, no possible food poisoning, no sick contacts, no recent antibiotic use or no recent injury Associated Symptoms: + nausea, + vomiting and + hematuria; no fever, no constipation, no dysuria, no hematemesis, no hematochezia and no melena Home Medications Medication Instructions Recorded Confirmed Type denosumab 60 mg/mL subcutaneous 1 dose subcut Q180D 01/14/19 02/18/23 History syringe (Prolia) sumatriptan succinate 100 mg 100 mg PO DAILY PRN Migraine 01/14/19 02/18/23 History tablet (Imitrex) Headache terazosin 1 mg capsule 1 mg PO HS 08/29/19 02/18/23 History apixaban 2.5 mg tablet (Eliquis) 2.5 mg PO BID 02/02/20 02/18/23 History gabapentin 100 mg capsule 100 mg PO TID 02/02/20 02/18/23 History dicyclomine 10 mg capsule 10 mg PO QID PRN ABD PAIN 06/06/20 02/18/23 History acetaminophen 325 mg tablet 650 mg PO Q6 PRN Pain 08/03/20 02/18/23 History (Tylenol) metoprolol tartrate 25 mg tablet 25 mg PO HS 10/13/20 02/18/23 History metoprolol tartrate 25 mg tablet 50 mg PO QAM 10/13/20 02/18/23 History cholecalciferol (vitamin D3) 25 50 mcg PO BID 01/21/21 02/18/23 History mcg (1,000 unit) capsule (Vitamin D3) omeprazole 40 mg capsule,delayed 40 mg PO DAILYBB 01/21/21 02/18/23 History release rosuvastatin 5 mg tablet (Crestor) 5 mg PO HS 10/06/21 02/18/23 History tamsulosin 0.4 mg capsule 0.4 mg PO DAILY #30 caps 01/18/23 02/18/23 Rx Allergies Allergy/AdvReac Type Severity Reaction Status Date / Time sulfamethoxazole Allergy Intermediate RASH Verified 02/18/23 19:33 trimethoprim Allergy Intermediate RASH Verified 02/18/23 19:33 Penicillins Allergy Mild Rash Verified 02/18/23 19:33 propoxyphene Allergy Mild Unknown Verified 02/18/23 19:33 Sulfa (Sulfonamide Allergy Mild Rash Verified 02/18/23 19:33 Antibiotics) venlafaxine [From Effexor] Allergy Mild Hives/Itchy Verified 02/18/23 19:33 /Rash amlodipine AdvReac Intermediate LEGS AND Verified 02/18/23 19:33 FEET GET TIGHT atorvastatin AdvReac Intermediate Inc Lft Verified 02/18/23 19:33 after Cholecystectomy enalapril AdvReac Intermediate tightness Verified 02/18/23 19:33 in ankles erythromycin base AdvReac Intermediate Vomiting Verified 02/18/23 19:33 fentanyl AdvReac Intermediate SEVERE Verified 02/18/23 19:33 N&V;DIZZY ondansetron [From Zofran] AdvReac Intermediate Nausea Verified 02/18/23 19:33 topiramate [From Topamax] AdvReac Intermediate "FINGERS Verified 02/18/23 19:33 NUMB" tramadol [From Ultram] AdvReac Intermediate Vomiting Verified 02/18/23 19:33 clindamycin AdvReac Mild Nausea Verified 02/18/23 19:33 codeine AdvReac Mild SICK TO Verified 02/18/23 19:33 STOMACH Quinolones AdvReac Mild N&V Verified 02/18/23 19:33 Past Med/Surg History Medical History CKD (chronic kidney disease) stage 3, GFR 30-59 ml/min Diverticulosis Gastroparesis GERD (gastroesophageal reflux disease) History of skin cancer Hx of renal calculi Hyperlipidemia Hypertension Migraines On anticoagulant therapy ELIQUIS DAILY Pacemaker medtronic- checked remotely once per month- last office check 2-3 mos ago- Dr Prabhu TRISTAN Paroxysmal atrial fibrillation Prediabetes Sensorineural hearing loss (SNHL) of both ears Thoracic aortic aneurysm Mildly dilated on echo 02/2019 per cardiology, but not seen on 08/2019 echo at [facility]. Surgical History History of breast biopsy History of cataract surgery B/L History of cholecystectomy 02/02/2020; [facility]; MAC #3, ETT 7.0. No complications. History of cystoscopy W/ STONE EXTRACTION History of ERCP with stone removal and stent placement 02/28 [place] History of lumbar surgery History of Mohs micrographic surgery for skin cancer History of tooth extraction Hx of colonoscopy S/P cardiac pacemaker procedure Status post trigger finger release Family History Other Coronary heart disease No family history of adverse response to anesthesia Social History Smoking Status: Never smoker Second Hand Exposure: No; Hx Alcohol Use: No Hx Substance Use: No Preferred Language: Romanian Communication Ability: Effective Visual Impairment: No Limitations Spinner Hand Required: No Beliefs That Will Affect Care: None marital status: / Current Living Situation: Alone How many Children do You have: 0 Feels Safe at Home: Yes Assistive Devices: Glasses Physical Exam Vital Signs: Vital Signs - 24 hr 02/18/23 17:06 02/18/23 19:24 02/18/23 19:24 Temperature 36.7 C Temperature Source Temporal Artery Sc an Pulse Rate 71 Pulse Rate [Finger ] 88 Pulse Rate from Sp O2 Sensor Respiratory Rate 18 22 Respiratory Effort / Characteristics Non-Labored Sponta neous Respiratory Depth Normal Blood Pressure 185/104 H Blood Pressure [Ri ght Arm] 193/114 H Blood Pressure Dawn n 131 Blood Pressure Dawn n [Right Arm] 140 Pulse Oximetry 99 98 98 Oxygen Delivery Me thod Room Air Room Air Room Air Sepsis Recent Feve r Within 48 Hours No Sepsis New/Unexpla ined Change in Men jacqueline Status No Sepsis Action Take n by Nursing No Action Required 02/18/23 20:09 02/18/23 20:30 02/18/23 20:34 Temperature Temperature Source Pulse Rate 90 83 81 Pulse Rate [Finger ] Pulse Rate from Sp O2 Sensor 90 84 81 Respiratory Rate 22 19 19 Respiratory Effort / Characteristics Respiratory Depth Blood Pressure 152/85 H Blood Pressure [Ri ght Arm] Blood Pressure Dawn n 107 Blood Pressure Danw n [Right Arm] Pulse Oximetry 96 94 94 Oxygen Delivery Me thod Sepsis Recent Feve r Within 48 Hours Sepsis New/Unexpla ined Change in Men jacqueline Status Sepsis Action Take n by Nursing 02/18/23 21:00 02/18/23 20:00 Temperature Temperature Source Pulse Rate 86 90 Pulse Rate [Finger ] Pulse Rate from Sp O2 Sensor 87 Respiratory Rate 17 Respiratory Effort / Characteristics Respiratory Depth Blood Pressure 164/81 H Blood Pressure [Ri ght Arm] Blood Pressure Dawn n 108 Blood Pressure Dawn n [Right Arm] Pulse Oximetry 95 Oxygen Delivery Me thod Sepsis Recent Feve r Within 48 Hours Sepsis New/Unexpla ined Change in Men jacqueline Status Sepsis Action Take n by Nursing Physical Exam: Physical Exam HENT: Exam performed. -Head: Normocephalic and atraumatic. -Right Ear: External ear normal. No mastoid erythema -Left Ear: External ear normal. No mastoid erythema EYES: Conjunctivae and EOM are normal. Right eye exhibits no discharge. Left eye exhibits no discharge. No scleral icterus. NECK: Normal range of motion. Neck supple. No JVD present. No spinous process tenderness present.No tracheal deviation and normal range of motion present. CV: Normal rate, regular rhythm, normal heart sounds and intact distal pulses. There is no peripheral edema. Palpable radial pulses bue. PULM/CHEST: Effort normal and breath sounds normal. No respiratory distress. No stridor. She has no wheezes. She has no rales. -Chest Wall: She exhibits no tenderness. ABD: The abdomen is soft. Bowel sounds are normal. She has no distension. No mass is present. There is no tenderness. There is no rebound, no guarding. Right-sided CVA tenderness. MUSC/SKEL: Normal range of motion. There is no tenderness or deformity. NEURO: Motor and sensation grossly intact SKIN: Skin is warm and dry. She is not diaphoretic. PSYCH: She has a normal mood and affect. Behavior is normal. Judgment and thought content normal. Course Course 1910: The patient was evaluated in room A10. A complete history and physical exam was performed Cardiac monitoring: An order was placed for continuous cardiac monitoring. The monitor shows a rate of 80 with sinus rhythm interpreted by me Patient was seen during a time of extreme volume and extreme acuity in the emergency department. Nursing triage protocols were initiated and labs were drawn by protocol in the triage area. 1950: Vital signs stable. Labs within normal limits. CT imaging shows multiple small stones in the right kidney and right renal pelvis and a 3 mm nonobstructing stone in the mid to distal right ureter with moderate hydroureteronephrosis at the level of the UVJ without a definite obstructing stone. I discussed these findings with Dr. Elizondo on-call for urology. He states that we should try to control the patient's pain and if her pain is under control she can be discharged home as the CT findings are expected with the recent procedure she had. If the patient's pain is unable to be controlled he states we can admit to medicine. 2042: Vital signs stable. On reassessment this patient states her pain is better. I had a long discussion with the patient and her son at bedside. They both state that they are comfortable with the patient going home and would like to be admitted for pain control and evaluation by urology in the morning stating that the patient lives at home by herself and they are comfortable with her being at home in case her pain comes back. We will speak with the [facility] admitting team. Administered Medications Discontinued Medications Sodium Chloride (Nss 1000ml) 500 mls @ 999 mls/hr IV .Q31M ONE Stop: 02/18/23 19:52 Last Infusion: 02/18/23 21:01 Dose: 0 mls/hr Documented By: Admin: 02/18/23 19:34 Dose: 999 mls/hr Documented By: ANGELIKA Ketorolac Tromethamine (Ketorolac Tromethamine 15 Mg/Ml Vial) 15 mg IV NOW STA Stop: 02/18/23 19:15 Last Admin: 02/18/23 19:22 Dose: 15 mg Documented By: ANGELIKA Ketorolac Tromethamine (Ketorolac Tromethamine 15 Mg/Ml Vial) 15 mg IV NOW STA Stop: 02/18/23 19:52 Last Admin: 02/18/23 19:59 Dose: 15 mg Documented By: ANGELIKA Morphine Sulfate (Morphine Sulfate 4 Mg/Ml 1 Ml Carp\\Vial) 4 mg IV NOW STA Stop: 02/18/23 19:52 Last Admin: 02/18/23 20:06 Dose: 4 mg Documented By: ANGELIKA Ondansetron HCl (Ondansetron Inj 2 Mg/Ml 2 Ml Vial) 4 mg IV NOW STA Stop: 02/18/23 19:23 Last Admin: 02/18/23 19:33 Dose: 4 mg Documented By: ANGELIKA Medical Decision Making Laboratory Data Attestation: I reviewed the patient's lab results. 02/18/23 18:32 02/18/23 18:32 Lab Results 02/18/23 02/18/23 02/18/23 Range/Units 18:32 18:32 19:11 WBC 12.69 H (4.8-10.8) K/ul RBC 4.27 (4.20-5.40) M/uL Hgb 13.3 (12.0-16.0) g/dl Hct 38.7 (37.0-47.0) % MCV 90.6 (80.0-100.0) fL MCH 31.1 (25.0-34.0) pg MCHC 34.4 (32.0-36.0) g/dL RDW Std Deviation 42.1 (36.4-46.3) fL RDW Coeff of Ling 12.8 (11.5-14.5) % Plt Count 239 (130-400) K/uL MPV 9.5 (9.4-12.4) fL Immature Gran % (Auto) 0.6 % Neut % (Auto) 80.3 % Lymph % (Auto) 13.2 % [place] % (Auto) 5.5 % Eos % (Auto) 0.2 % Baso % (Auto) 0.2 % Neut # (Auto) 10.18 H (1.40-6.50) K/uL Lymph # (Auto) 1.68 (1.2-3.4) K/uL [place] # (Auto) 0.70 H (0.11-0.59) K/uL Eos # (Auto) 0.03 (0-0.50) K/uL Baso # (Auto) 0.03 (0-0.2) K/uL Immature Gran # (Auto) 0.07 (0.01-0.20) K/uL Sodium 136 (136-145) mmol/L Potassium 4.0 (3.5-5.1) mmol/L Chloride 103 (98-107) mmol/L Carbon Dioxide 23 (21-32) mmol/L Anion Gap 10 (3-11) BUN 26 H (6-23) mg/dl Creatinine 0.91 (0.6-1.2) mg/dl Est Cr Clr Drug Dosing Not Reportable Est GFR ( Amer) 65.7 ml/min Est GFR (Non-Af Amer) 56.7 ml/min BUN/Creatinine Ratio 28.6 H (10-20) Glucose 159 H (70-99(Fasting)) mg/dl Calcium 9.7 (8.6-10.3) mg/dl Total Bilirubin 0.5 (0.2-1.0) mg/dl AST 17 (13-39) U/L ALT 17 (7-52) U/L Alkaline Phosphatase 41 (34-104) U/L Total Protein 6.8 (6.0-8.3) gm/dl Albumin 4.5 (3.4-5.0) gm/dl Globulin 2.3 L (2.5-4.0) gm/dl Albumin/Globulin Ratio 2.0 (0.9-2) Urine Color Red Urine Appearance Cloudy A (Clear) Urine pH 5.5 (4.5-7.5) Ur Specific Brooks 1.025 (1.000-1.030) Urine Protein 3+ H (Negative) Urine Glucose (UA) Trace H (Negative) Urine Ketones 1+ H (Negative) Urine Blood 3+ H (Negative) Urine Nitrite Positive A (Negative) Urine Bilirubin 2+ H (Negative) Urine Urobilinogen Negative (Negative) Ur Leukocyte Esterase Negative (Negative) Urine RBC >30 H (0-4) /hpf Urine WBC 0-5 (0-5) /hpf Ur Epithelial Cells 0-5 (0-5) /lpf Urine Bacteria 4+ H (Negative) SARS-CoV-2, RNA, NAAT (NEGATIVE) 02/18/23 Range/Units 21:25 WBC (4.8-10.8) K/ul RBC (4.20-5.40) M/uL Hgb (12.0-16.0) g/dl Hct (37.0-47.0) % MCV (80.0-100.0) fL MCH (25.0-34.0) pg MCHC (32.0-36.0) g/dL RDW Std Deviation (36.4-46.3) fL RDW Coeff of Ling (11.5-14.5) % Plt Count (130-400) K/uL MPV (9.4-12.4) fL Immature Gran % (Auto) % Neut % (Auto) % Lymph % (Auto) % [place] % (Auto) % Eos % (Auto) % Baso % (Auto) % Neut # (Auto) (1.40-6.50) K/uL Lymph # (Auto) (1.2-3.4) K/uL [place] # (Auto) (0.11-0.59) K/uL Eos # (Auto) (0-0.50) K/uL Baso # (Auto) (0-0.2) K/uL Immature Gran # (Auto) (0.01-0.20) K/uL Sodium (136-145) mmol/L Potassium (3.5-5.1) mmol/L Chloride (98-107) mmol/L Carbon Dioxide (21-32) mmol/L Anion Gap (3-11) BUN (6-23) mg/dl Creatinine (0.6-1.2) mg/dl Est Cr Clr Drug Dosing Est GFR ( Amer) ml/min Est GFR (Non-Af Amer) ml/min BUN/Creatinine Ratio (10-20) Glucose (70-99(Fasting)) mg/dl Calcium (8.6-10.3) mg/dl Total Bilirubin (0.2-1.0) mg/dl AST (13-39) U/L ALT (7-52) U/L Alkaline Phosphatase (34-104) U/L Total Protein (6.0-8.3) gm/dl Albumin (3.4-5.0) gm/dl Globulin (2.5-4.0) gm/dl Albumin/Globulin Ratio (0.9-2) Urine Color Urine Appearance (Clear) Urine pH (4.5-7.5) Ur Specific Brooks (1.000-1.030) Urine Protein (Negative) Urine Glucose (UA) (Negative) Urine Ketones (Negative) Urine Blood (Negative) Urine Nitrite (Negative) Urine Bilirubin (Negative) Urine Urobilinogen (Negative) Ur Leukocyte Esterase (Negative) Urine RBC (0-4) /hpf Urine WBC (0-5) /hpf Ur Epithelial Cells (0-5) /lpf Urine Bacteria (Negative) SARS-CoV-2, RNA, NAAT NEGATIVE (NEGATIVE) Imaging Data Radiologist's Impression: Abdomen/Pelvis CT 02/18/23 17:[address] WITHOUT CONTRAST CT DOSE: 266.54 mGy.cm HISTORY: Right flank pain. Abdominal pain, stent removed (per urology) TECHNIQUE: Multiaxial CT images of the abdomen and pelvis were performed without contrast. A dose lowering technique was utilized adhering to the principles of ALARA. COMPARISON STUDY: Abdomen and pelvis CT 01/18/2023. FINDINGS: The lung bases are essentially clear noting mild bronchiectasis within the right middle lobe and lingula. Pacemaker wires are noted. No pneumoperitoneum. No pneumatosis. No acute fractures. 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 The heart is mildly enlarged. There are 2 duodenal diverticula are again noted. Prior cholecystectomy. The unenhanced liver, spleen, adrenal glands, and pancreas are within normal limits. Normal caliber abdominal aorta. No retroperitoneal or pelvic lymphadenopathy. No pelvic free fluid. The uterus and adnexa are unremarkable. Pelvic floor collapse is noted. There is bladder wall thickening with adjacent fat stranding. There is a small amount of gas within the bladder lumen. Colonic diverticulosis. No evidence for acute diverticulitis. No bowel wall thickening or obstruction. The visualized appendix is unremarkable. Stable bilateral renal hypodense lesions which favor cysts. No definite left renal calculi. No left-sided hydronephrosis. Multiple small stones seen within the right kidney and right renal pelvis. There is a 3 mm nonobstructing stone within the mid to distal right ureter on image 243. This is just proximal to the right iliac vessels. There is moderate right hydroureteronephrosis to the level of the ureterovesical junction without obstructing stone identified. IMPRESSION: 1. Multiple small stones identified within the right kidney and right renal pelvis. There is also a 3 mm nonobstructing stone within the mid to distal right ureter. There is moderate right hydroureteronephrosis to the level of the ureterovesical junction without a definite obstructing stone. 2. No bowel wall thickening or obstruction. 3. Colonic diverticulosis. No evidence for acute diverticulitis. 4. Additional findings as described above. ACT 112: Negative or not required by law. Electronically signed by: Steve Jim M.D. 02/18/2023 7:34 PM MDM Narrative 1910: The patient was evaluated in room A10. A complete history and physical exam was performed Cardiac monitoring: An order was placed for continuous cardiac monitoring. The monitor shows a rate of 80 with sinus rhythm interpreted by me Patient was seen during a time of extreme volume and extreme acuity in the emergency department. Nursing triage protocols were initiated and labs were drawn by protocol in the triage area. 1950: Vital signs stable. Labs within normal limits. CT imaging shows multiple small stones in the right kidney and right renal pelvis and a 3 mm nonobs tructing stone in the mid to distal right ureter with moderate hydroureteronephrosis at the level of the UVJ without a definite obstructing stone. I discussed these findings with Dr. Elizondo on-call for urology. He states that we should try to control the patient's pain and if her pain is under control she can be discharged home as the CT findings are expected with the recent procedure she had. If the patient's pain is unable to be controlled he states we can admit to medicine. 2042: Vital signs stable. On reassessment this patient states her pain is better. I had a long discussion with the patient and her son at bedside. They both state that they are comfortable with the patient going home and would like to be admitted for pain control and evaluation by urology in the morning stating that the patient lives at home by herself and they are comfortable with her being at home in case her pain comes back. We will speak with the [facility] admitting team. Impression & Plan Kidney stone Discharge Plan Visit Data Chief Complaint: Flank Pain Stated Complaint: HAD KIDNEY OPERATION, PAIN ON R SIDE INTO BACK ED Provider: Satya Garces Discharge Problem: Kidney stone Patient Disposition: Being Evaluated by Hospitalist Forms Stand Alone Forms: My [facility] Prescriptions Prescriptions: No Action tamsulosin 0.4 mg capsule 0.4 mg PO DAILY Qty: 30 2RF Rx Instructions: Take one tablet at night time. rosuvastatin [Crestor] 5 mg tablet 5 mg PO HS sumatriptan succinate [Imitrex] 100 mg tablet 100 mg PO DAILY PRN (Reason: Migraine Headache) Prolia 60 mg/mL Syringe 1 dose SUBCUT Q180D Rx Instructions: takes in and april terazosin 1 mg capsule 1 mg PO HS Eliquis 2.5 mg Tablet 2.5 mg PO BID gabapentin 100 mg Capsule 100 mg PO TID dicyclomine 10 mg capsule 10 mg PO QID PRN (Reason: ABD PAIN) metoprolol tartrate 25 mg tablet 25 mg PO HS metoprolol tartrate 25 mg tablet 50 mg PO QAM acetaminophen [Tylenol] 325 mg Tablet 650 mg PO Q6 PRN (Reason: Pain) omeprazole 40 mg Capsule,Delayed Release(Dr/Ec) 40 mg PO DAILYBB cholecalciferol (vitamin D3) [Vitamin D3] 25 mcg (1,000 unit) Capsule 50 mcg PO BID Referrals Referrals: Preston Villagran MD [Primary Care Provider] -
[2023-02-18 19:47] LABS: Epithelial Cell Urine 0-5 /lpf (0-5)
[2023-02-18 19:48] LABS: Bacteria Urine 4+ (Negative); RBC Urine >30 /hpf (0-4); WBC Urine 0-5 /hpf (0-5)
[2023-02-18] MEDS ORDERED: MoRPHine SULFATE 4 MG/ML 1 ML CARP\\VIAL IV STA (19:51)
[2023-02-19] MEDS ORDERED: ACETAMINOPHEN 325 MG TAB PO PRN (00:48)
[2023-02-19] MEDS ORDERED: DICYCLOMINE HCL 10 MG CAP PO PRN (00:48)
[2023-02-19] MEDS ORDERED: oxyCODONE HCL IR 5 MG TAB (IMMEDIATE RELEASE) PO PRN (00:48)
[2023-02-19] MEDS ORDERED: HYDROmorphone INJ 0.5 MG/0.5 ML SYR IV PRN (00:48)
[2023-02-19] MEDS ORDERED: SUMAtriptan succinate 100 MG TAB PO PRN (00:48)
[2023-02-19] MEDS ORDERED: ONDANSETRON INJ 2 MG/ML 2 ML VIAL IV PRN (00:48)
[2023-02-19] MEDS: SODIUM CHLORIDE 0.9% 1000ML 1,000 ML IV SCH ×2 (01:28→09:13)
[2023-02-19] MEDS ORDERED: cefTRIAXone SODIUM 1,000 MG in DEXTROSE 5% AD-VAN 50 ML IV SCH (01:30)
--- NOTE | 2023-02-19 02:26 | History and Physical Report ---
DATE OF ADMISSION: 02/18/2023. CHIEF COMPLAINT: Right flank pain. HISTORY OF PRESENT ILLNESS: An 88-year-old female with past medical history significant for hyperlipidemia, prediabetes, thyroid nodule, enlarged thoracic aorta, paroxysmal atrial fibrillation, tachybrady syndrome, status post pacemaker, hypertension, Raynaud's phenomenon, history of gastroparesis, GERD, chronic kidney disease stage III, history of kidney stones, restless legs syndrome, senile osteoporosis, lumbar degenerative disk disease, chronic migraine, history of colonic diverticulitis, presents with right flank pain. The patient had a cystoscopy yesterday for gross hematuria, nephrolithiasis, status post bilateral selective cytology, right ureteroscopy with laser lithotripsy, right ureteral stent placement and random bladder biopsies were done and she was discharged home. At home last night she has lot of pain and her ureteral stent was coming out and she called the urology office in the morning and they told to pull the stent out and she pulled the stent out and the pain seemed better. Later at 3:00 p.m., the pain came back, severe right flank pain, and has some hematuria that is the reason she came here. Denies any fevers, was nauseous earlier with the pain medication and antiemetics, seemed to feel better now. Denies any chest pain, no shortness of breath, no cough, no headache, no blurred visions, no earache, no runny nose, no sore throat, resting comfortably and hemodynamically stable. ALLERGIES: BACTRIM, PENICILLINS, PROPOXYPHENE, VENLAFAXINE, AMLODIPINE, ATORVASTATIN, ENALAPRIL, ERYTHROMYCIN BASE, FENTANYL, ZOFRAN, TOPAMAX, TRAMADOL, CLINDAMYCIN, CODEINE, QUINOLONES. PAST MEDICAL HISTORY: As mentioned above. PAST SURGICAL HISTORY: EGD, EGD with endoscopic ultrasound, ERCPs, lithotripsy, lumbar laminectomy, cataract surgery, cholecystectomy. MEDICATIONS: The patient is on Tylenol 650 mg p.o. q. 6 hours p.r.n., vitamin D 50 mcg p.o. b.i.d., dicyclomine 10 mg p.o. q.i.d. p.r.n., Eliquis 2.5 mg p.o. b.i.d., gabapentin 100 mg p.o. t.i.d., metoprolol tartrate 25 mg p.o. at bedtime and 50 mg p.o. a.m., omeprazole 40 mg p.o. daily, Prolia subcutaneous q. 180 days, rosuvastatin 5 mg p.o. at bedtime, Imitrex 100 mg p.o. daily p.r.n., Flomax 0.4 mg p.o. daily, terazosin 1 mg p.o. at bedtime. FAMILY HISTORY: Significant for brother has heart disorder; father has heart disorder; sister has heart disorder; mother has hip fracture. SOCIAL HISTORY: . No smoking. Alcohol, rarely. No drug use. REVIEW OF SYSTEMS: As per HPI. Rest of the review of systems is negative. PHYSICAL EXAMINATION: GENERAL: The patient is of moderate build, not in acute distress. VITAL SIGNS: Temperature 36.7, pulse 86, respiratory rate 17, blood pressure 164/81, oxygen 95% on room air. HEENT: Pupils equal, round and reactive to light. Oral mucosa moist. NECK: No JVD or neck masses. CARDIOVASCULAR: S1 and S2 heard. Regular rate and rhythm. No murmur, no gallop. RESPIRATORY SYSTEM: Normal AP diameter. No accessory muscle use. No wheezing, crackles. ABDOMEN: Soft, bowel sounds present. Mild right CVA tenderness present. No guarding. No rigidity, no distention. CENTRAL NERVOUS SYSTEM: Cranial nerves II through XII grossly intact, nonfocal. EXTREMITIES: No edema, no erythema. LABORATORY DATA: WBC 12.6, hemoglobin 13.3, hematocrit 38.7, platelets 239. Sodium 136, potassium 4, chloride 103, CO2 of 23, BUN 26, creatinine 0.9, serum glucose 159, calcium 9.7, total bilirubin 0.5, AST 17, ALT 17, alkaline phosphatase 41. Urinalysis, +3 protein, positive for leukocyte esterase, and +4 bacteria. SARS-CoV-2 rapid test negative. IMAGING DATA: CT abdomen and pelvis without contrast shows multiple small stones identified in the right kidney, right renal pelvis and 3 mm nonobstructing renal stone within the mid to distal right ureter, moderate right hydronephrosis to the level of the ureterovesical junction without a definite obstructing stone. ASSESSMENT AND PLAN: This is an 88-year-old female presents with right flank pain. 1. Right flank pain. Renal colic The patient has a cystoscopy with stone extraction and stent placement and biopsy done yesterday. The stent came out and she has pulled it out in the morning, comes with severe pain, getting admitted for pain control and renal colic and UTI.NPO, fluids, pain control and antiemetics. Urology consult. 2. urinary tract infection. On , Rocephin. Follow the cultures. 3. History of paroxysmal atrial fibrillation, tachybrady syndrome, status post pacemaker. Continue with home metoprolol and Eliquis. Monitor for any worsening hematuria. 4. Gastroesophageal reflux disease: Continue omeprazole. 5. Hyperlipidemia: Continue statin. 6. Hypertension: On terazosin, metoprolol. Will monitor the blood pressure. 7. Chronic kidney disease, stage III. Creatinine currently is 0.9. We will follow the labs. 8. Prediabetes. Follow HbA1c levels. 9. Chronic migraines: On Imitrex p.r.n. 10. Deep venous thrombosis prophylaxis: SCDs for now. DISPOSITION: Admit to medical floor. PT/OT prior to discharge. Social service to help with discharge planning. Level 1 full code. Job ID: [id number] MTDD
[2023-02-19 06:30] LABS: Basophils # (auto) 0.02 K/uL (0-0.2); Basophils % (auto) 0.2 %; Eosinophils # (auto) 0.04 K/uL (0-0.50); Eosinophils % (auto) 0.5 %; Hemoglobin 11.6 g/dl (12.0-16.0); Immature Granulocytes # (auto) 0.04 K/uL (0.01-0.20); Immature Granulocytes % (auto) 0.5 %; Lymphocytes % (auto) 22.1 %; Mean Corpuscular Hemoglobin 30.5 pg (25.0-34.0); Mean Corpuscular Hgb Conc 33.1 g/dL (32.0-36.0); Mean Corpuscular Volume 92.1 fL (80.0-100.0); Mean Platelet Volume 9.6 fL (9.4-12.4); Monocytes # (auto) 0.48 K/uL (0.11-0.59); Monocytes % (auto) 5.6 %; Neutrophils % (auto) 71.1 %; Platelet Count 203 K/uL (130-400); RDW Coefficient of Variation 12.9 % (11.5-14.5); RDW Standard Deviation 43.2 fL (36.4-46.3); White Blood Count 8.58 K/ul (4.8-10.8)
[2023-02-19] MEDS ORDERED: PANTOprazole 40 MG TAB PO SCH (06:30)
[2023-02-19 06:34] LABS: BUN Creatinine Ratio 27.5 (10-20); Calcium 8.2 mg/dl (8.6-10.3); Creatinine Clr Calc Pharmacy 37.4 ml/min; Est GFR (African American) 76.8 ml/min; Est GFR (Non-African American) 66.3 ml/min; Potassium 3.9 mmol/L (3.5-5.1)
[2023-02-19] MEDS: GABAPENTIN 100 MG CAP PO SCH ×2 (07:32→13:48)
--- NOTE | 2023-02-19 08:52 | Urology Consultation ---
Date of Consultation February 19, 2023 Assessment & Plan (1) Kidney stone: Status post right ureteroscopy and laser lithotripsy earlier this week She had an accidental removal of the ureteral stent the night of surgery She developed some ureteral spasm and discomfort This seems to have largely resolved and she is doing much better now I think she is reasonable for discharge home from a standpoint I would only recommend coverage with oral antibiotics for an additional 72 hours -nitrofurantoin 100 mg twice daily may be best given her extensive allergy list History of Present Illness Attending Physician: Gracie Archer MD History of Present Illness 88-year-old female underwent right ureteroscopy and laser lithotripsy earlier this week Had a stent with a string but unfortunately this was accidentally removed earlier than planned She developed significant pain several hours after removal of the stent and ultimately reported to the emergency room CT at that time was performed which shows some stone debris residing in the renal pelvis, the original stone was much larger and she appears to have had good fragmentation from her surgery She has expected levels of hydronephrosis No obstructing ureteral calculi visualized Most importantly she feels much better today She is tired but denies any flank pain Afebrile Leukocytosis improved from 12-8.5 Creatinine appropriate0.8 Only subjective complaint is hematuria She is not experiencing dysuria I explained that this is very normal after stone surgery and stent placement and should resolve spontaneously with time Allergies Allergy/AdvReac Type Severity Reaction Status Date / Time sulfamethoxazole Allergy Intermediate RASH Verified 02/18/23 19:33 trimethoprim Allergy Intermediate RASH Verified 02/18/23 19:33 Penicillins Allergy Mild Rash Verified 02/18/23 19:33 propoxyphene Allergy Mild Unknown Verified 02/18/23 19:33 Sulfa (Sulfonamide Allergy Mild Rash Verified 02/18/23 19:33 Antibiotics) venlafaxine [From Effexor] Allergy Mild Hives/Itchy Verified 02/18/23 19:33 /Rash amlodipine AdvReac Intermediate LEGS AND Verified 02/18/23 19:33 FEET GET TIGHT atorvastatin AdvReac Intermediate Inc Lft Verified 02/18/23 19:33 after Cholecystectomy enalapril AdvReac Intermediate tightness Verified 02/18/23 19:33 in ankles erythromycin base AdvReac Intermediate Vomiting Verified 02/18/23 19:33 fentanyl AdvReac Intermediate SEVERE Verified 02/18/23 19:33 N&V;DIZZY ondansetron [From Zofran] AdvReac Intermediate Nausea Verified 02/18/23 19:33 topiramate [From Topamax] AdvReac Intermediate "FINGERS Verified 02/18/23 19:33 NUMB" tramadol [From Ultram] AdvReac Intermediate Vomiting Verified 02/18/23 19:33 clindamycin AdvReac Mild Nausea Verified 02/18/23 19:33 codeine AdvReac Mild SICK TO Verified 02/18/23 19:33 STOMACH Quinolones AdvReac Mild N&V Verified 02/18/23 19:33 Home Medications Medication Instructions Recorded Confirmed Type denosumab 60 mg/mL subcutaneous 1 dose subcut Q180D 01/14/19 02/18/23 History syringe (Prolia) sumatriptan succinate 100 mg 100 mg PO DAILY PRN Migraine 01/14/19 02/18/23 History tablet (Imitrex) Headache terazosin 1 mg capsule 1 mg PO HS 08/29/19 02/18/23 History apixaban 2.5 mg tablet (Eliquis) 2.5 mg PO BID 02/02/20 02/18/23 History gabapentin 100 mg capsule 100 mg PO TID 02/02/20 02/18/23 History dicyclomine 10 mg capsule 10 mg PO QID PRN ABD PAIN 06/06/20 02/18/23 History acetaminophen 325 mg tablet 650 mg PO Q6 PRN Pain 08/03/20 02/18/23 History (Tylenol) metoprolol tartrate 25 mg tablet 25 mg PO HS 10/13/20 02/18/23 History metoprolol tartrate 25 mg tablet 50 mg PO QAM 10/13/20 02/18/23 History cholecalciferol (vitamin D3) 25 50 mcg PO BID 01/21/21 02/18/23 History mcg (1,000 unit) capsule (Vitamin D3) omeprazole 40 mg capsule,delayed 40 mg PO DAILYBB 01/21/21 02/18/23 History release rosuvastatin 5 mg tablet (Crestor) 5 mg PO HS 10/06/21 02/18/23 History tamsulosin 0.4 mg capsule 0.4 mg PO DAILY #30 caps 01/18/23 02/18/23 Rx Patient History Medical History CKD (chronic kidney disease) stage 3, GFR 30-59 ml/min Diverticulosis Gastroparesis GERD (gastroesophageal reflux disease) History of skin cancer Hx of renal calculi Hyperlipidemia Hypertension Migraines On anticoagulant therapy ELIQUIS DAILY Pacemaker medtronic- checked remotely once per month- last office check 2-3 mos ago- Dr Prabhu TRISTAN Paroxysmal atrial fibrillation Prediabetes Sensorineural hearing loss (SNHL) of both ears Thoracic aortic aneurysm Mildly dilated on echo 02/2019 per cardiology, but not seen on 08/2019 echo at [facility]. Surgical History History of breast biopsy History of cataract surgery B/L History of cholecystectomy 02/02/2020; [facility]; MAC #3, ETT 7.0. No complications. 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: No Beliefs That Will Affect Care: None marital status: / Current Living Situation: Alone How many Children do You have: 0 Other Information That Helps Us Care for You: No Feels Safe at Home: Yes Safety Concerns: Feels Safe At This Time Assistive Devices: None Review of Systems Constitutional: + fatigue; no fever and no chills Eyes: no worsening vision Ear, Nose, Mouth, Throat: no facial pain and no pain with swallowing Respiratory: no cough and no dyspnea Cardiovascular: no chest pain and no palpitations Gastrointestinal: no abdominal pain, no nausea and no vomiting Genitourinary: no dysuria, no difficulty urinating, no urinary frequency and no hematuria Musculoskeletal: no back pain Integumentary: no rash and no urticaria Neurologic: no gait abnormality and no unsteadiness Psychiatric: no behavioral changes and no depression Endocrine: no fatigue Physical Exam Constitutional: well developed and well nourished Neck: neck nontender Respiratory: normal respiratory effort; no respiratory distress and does not use accessory muscles Cardiovascular: Rate/Rhythm: regular rate Vessels: radial pulses present Extremities: no edema Gastrointestinal (Abdomen): Inspection/Auscultation: abdomen normal to inspection Percussion/Palpation: abdomen soft; abdomen nontender and no guarding Musculoskeletal: Head/Neck/Chest: normocephalic and head atraumatic Extremities: extremities normal to inspection Skin: no rashes and no lesions Trauma: no evidence of skin trauma Neurologic: awake; not obtunded Speech / Cognition: normal speech Motor/Sensory: no tremor Psychiatric: Orientation: alert and oriented x 3 Lymphatic: no lymphadenopathy Results & Data Vital Signs (Past 12 Hours) Vital Signs Temp Pulse Pulse Pulse Resp BP BP 02/19/23 07:42 37.1 C 87 16 149/80 H 02/19/23 07:41 36.9 C 88 17 138/80 02/19/23 00:30 36.7 C 89 16 151/70 H 02/19/23 00:00 77 15 02/19/23 00:00 135/90 02/18/23 23:30 77 13 02/18/23 23:30 145/78 H 02/18/23 23:00 81 15 02/18/23 23:00 150/91 H 02/18/23 22:35 100 H 19 02/18/23 22:35 157/98 H 02/18/23 22:00 84 14 02/18/23 22:00 136/79 02/18/23 21:30 84 16 02/18/23 21:30 128/90 02/18/23 23:57 84 02/18/23 21:00 86 17 164/81 H Pulse Ox O2 Del Method 02/19/23 07:42 94 Room Air 02/19/23 07:41 97 Room Air 02/19/23 00:30 93 Room Air 02/19/23 00:00 94 02/19/23 00:00 02/18/23 23:30 91 02/18/23 23:30 02/18/23 23:00 94 02/18/23 23:00 02/18/23 22:35 96 02/18/23 22:35 02/18/23 22:00 92 02/18/23 22:00 02/18/23 21:30 95 02/18/23 21:30 02/18/23 23:57 02/18/23 21:00 95 PG Care Time/CCT Total # of Minutes Spent Total Time Spent with Patient: Total time spent is greater than 50% in coordination of care (as documented) at patient's floor/unit and/or counseling patient: Coding Level of Care Code 49092 INT INP/OBS CARE 1/40MIN Diagnoses Kidney stone N20.0
[2023-02-19] MEDS ORDERED: TAMSULOSIN HCL 0.4 MG CAP PO SCH (09:00)
[2023-02-19] MEDS ORDERED: CHOLECALCIFEROL 1,000 UNITS 25 MCG TAB PO SCH ×2 (09:00)
[2023-02-19] MEDS ORDERED: METOPROLOL TARTRATE 50 MG TAB PO SCH (09:00)
[2023-02-19] MEDS ORDERED: APIXABAN 2.5 MG TAB PO SCH (09:00)
--- NOTE | 2023-02-19 12:41 | Hospitalist Progress Note ---
Date of Service February 19, 2023 Assessment & Plan (1) Right flank pain: Plan: Accidental removal of the right ureteric stent With right flank pain and hematuria Appreciate urology input and recommendation Pain seems to be resolved She will be discharged home this afternoon Her admission were changed to observation as per requirement and was discharged home (2) Kidney stone: Plan: History of nephrolithiasis Status post right ureteroscopy and laser lithotripsy earlier this week with right ureteric stent placement Central removal of the stent as above (3) UTI (urinary tract infection): Plan: Likely has UTI-UA is suggestive and culture is pending Allergic to too many antibiotics but has been on ceftriaxone since admission Will give oral Keflex to continue for next 7 days Macrobid was not given for potential side effect to develop (4) Paroxysmal atrial fibrillation: Plan: Rate is controlled (5) Hypertension: Plan: Remains on the upper side (6) Hematuria: Plan: Following the accidental removal of ureteric stent Appreciate urology input and recommendation Hematuria is expected to improve (7) GERD (gastroesophageal reflux disease): Plan: Continue current management Plan No contraindication from urologist for discharge Patient remains minimally weak but has been ambulating in the room She wanted to go home today She was discharged home this afternoon Admission and Anticipated Discharge Date Admission Date: February 18, 2023 Subjective 02/19/2023 The patient was seen and examined in medical floor She was admitted with accidental removal of ureteral stent with abdominal pain and hematuria She is seen by urologist and has been feeling much better since admission Complains to have some weakness but no other symptoms Review of Systems Review of Systems: All systems reviewed and are unremarkable except as noted below Physical Exam Physical Exam: Lying in bed comfortably Constitutional: + ill appearing and average body habitus Eyes: PERRL, conjunctivae normal, anicteric sclerae ENMT: external ear and nose normal, oropharynx normal Respiratory: no respiratory distress Auscultation: lungs clear to auscultation bilaterally Cardiovascular: Rate/Rhythm: regular rate and regular rhythm; not tachycardic Heart Sounds: normal S1, normal S2 and + murmur Extremities: no edema Gastrointestinal (Abdomen): Inspection/Auscultation: normal bowel sounds; abdomen not distended Percussion/Palpation: + abdomen tender (Mildly tender right renal angle) and abdomen soft Musculoskeletal: No acute arthritis involving any joint Neurologic: normal touch/pain/proprioception and moves all extremities; no focal motor deficits Psychiatric: A+Ox3, euthymic affect Lymphatic: no cervical or axillary lymphadenopathy Results & Data Results & Data Vital Signs (Past 12 Hours) Vital Signs Temp Pulse Pulse Resp BP Pulse Ox O2 Del Method 02/19/23 07:42 37.1 C 87 16 149/80 H 94 Room Air 02/19/23 07:41 36.9 C 88 17 138/80 97 Room Air Laboratory Results Short CBC 02/18/23 02/19/23 Range/Units 18:32 05:32 WBC 12.69 H 8.58 (4.8-10.8) K/ul Hgb 13.3 11.6 L (12.0-16.0) g/dl Hct 38.7 35.0 L (37.0-47.0) % Plt Count 239 203 (130-400) K/uL BMP 02/18/23 02/19/23 18:32 05:32 Sodium 136 139 Potassium 4.0 3.9 Chloride 103 107 Carbon Dioxide 23 25 BUN 26 H 22 Creatinine 0.91 0.80 Glucose 159 H 102 H Calcium 9.7 8.2 L Liver Function 02/18/23 Range/Units 18:32 Total Bilirubin 0.5 (0.2-1.0) mg/dl AST 17 (13-39) U/L ALT 17 (7-52) U/L Alkaline Phosphatase 41 (34-104) U/L Albumin 4.5 (3.4-5.0) gm/dl Urine 02/18/23 Range/Units 19:11 Urine Color Red Urine Appearance Cloudy A (Clear) Urine pH 5.5 (4.5-7.5) Ur Specific Wray 1.025 (1.000-1.030) Urine Protein 3+ H (Negative) Urine Glucose (UA) Trace H (Negative) Medications Administered Current Inpatient Medications Acetaminophen (Acetaminophen 325 Mg Tab) 650 mg PO Q4H PRN PRN Reason: pain/fever Stop: 03/21/23 00:47 Apixaban (Apixaban 2.5 Mg Tab) 2.5 mg PO BID [facility] Stop: 03/21/23 08:59 Last Admin: 02/19/23 07:32 Dose: Not Given Dicyclomine HCl (Dicyclomine Hcl 10 Mg Cap) 10 mg PO QID PRN PRN Reason: ABD PAIN Stop: 03/21/23 00:47 Gabapentin (Gabapentin 100 Mg Cap) 100 mg PO TID [facility] Stop: 03/21/23 08:59 Last Admin: 02/19/23 07:32 Dose: 100 mg Hydromorphone HCl (Hydromorphone Inj 0.5 Mg/0.5 Ml Syr) 0.5 mg IV Q4H PRN PRN Reason: Severe Pain (Scale 7, 8, 9,10) Stop: 03/05/23 00:47 Sodium Chloride (Nss 1000ml) 1,000 mls @ 125 mls/hr IV .Q8H [facility] Stop: 03/21/23 00:47 Last Admin: 02/19/23 09:13 Dose: 125 mls/hr Ceftriaxone Sodium 1,000 mg/ (Dextrose) 50 mls @ 100 mls/hr IV Q24H [facility]; Protocol Stop: 03/01/23 01:29 Last Infusion: 02/19/23 02:36 Dose: Infused Metoprolol Tartrate (Metoprolol Tartrate 25 Mg Tab) 25 mg PO [facility] Stop: 03/21/23 20:59 Metoprolol Tartrate (Metoprolol Tartrate 50 Mg Tab) [facility] Stop: 03/21/23 08:59 Last Admin: 02/19/23 07:31 Dose: 50 mg Ondansetron HCl (Ondansetron Inj 2 Mg/Ml 2 Ml Vial) 4 mg IV Q6H PRN PRN Reason: Nausea Stop: 03/21/23 00:47 Oxycodone HCl (Oxycodone Hcl Ir 5 Mg Tab (Immediate Release)) 5 mg PO Q6H PRN PRN Reason: Moderate Pain (Scale 4, 5, 6) Stop: 03/05/23 00:47 Pantoprazole Sodium ([facility]op[facility]ole 40 Mg Tab) [facility] Stop: 03/21/23 06:29 Last Admin: 02/19/23 05:43 Dose: 40 mg Rosuvastatin Calcium (Rosuvastatin Calcium 5 Mg Tab) 5 mg PO HS [facility] Stop: 03/21/23 20:59 Sumatriptan Succinate (Sumatriptan Succinate 100 Mg Tab) 100 mg PO DAILY PRN PRN Reason: Migraine Headache Stop: 03/21/23 00:47 Tamsulosin HCl (Tamsulosin Hcl 0.4 Mg Cap) 0.4 mg PO DAILY [facility] Stop: 03/21/23 08:59 Last Admin: 02/19/23 07:31 Dose: 0.4 mg Terazosin HCl (Terazosin Hcl 1 Mg Cap) 1 mg PO HS [facility] Stop: 03/21/23 20:59 Vitamin D (Cholecalciferol 1,000 Units 25 Mcg Tab) 2,000 units PO BID [facility] Stop: 03/21/23 08:59 Last Admin: 02/19/23 07:31 Dose: 2,000 units (6) Hematuria Hematuria type: gross Qualified Code(s): R31.0 - Gross hematuria (7) GERD (gastroesophageal reflux disease) Esophagitis presence: without esophagitis Qualified Code(s): K21.9 - Gastro-esophageal reflux disease without esophagitis
--- NOTE | 2023-02-19 14:27 | Communication Note ---
Date of Service: February 19, 2023 By CMS guidelines, a determination that the admission or continued stay is not medically necessary has been made by a member of the UR committee and a phy sician for this hospital stay, therefore a Code 44 will be completed and the Inpatient admission will be changed to outpatient. Victor Manuel Gusman MD member, Utilization Review Committee
[2023-02-19] MEDS ORDERED: METOPROLOL TARTRATE 25 MG TAB PO SCH (21:00)
[2023-02-19] MEDS ORDERED: ROSUVASTATIN CALCIUM 5 MG TAB PO SCH (21:00)
[2023-02-19] MEDS ORDERED: TERAZOSIN HCL 1 MG CAP PO SCH (21:00)
--- NOTE | 2023-02-20 07:39 | Discharge Summary ---
Date of Service February 20, 2023 Admission HPI Per Admitting Provider DICTATED BY:Feliz Hurtado MD DATE OF ADMISSION: 02/18/2023. CHIEF COMPLAINT: Right flank pain. HISTORY OF PRESENT ILLNESS: An 88-year-old female with past medical history significant for hyperlipidemia, prediabetes, thyroid nodule, enlarged thoracic aorta, paroxysmal atrial fibrillation, tachybrady syndrome, status post pacemaker, hypertension, Raynaud's phenomenon, history of gastroparesis, GERD, chronic kidney disease stage III, history of kidney stones, restless legs syndrome, senile osteoporosis, lumbar degenerative disk disease, chronic migraine, history of colonic diverticulitis, presents with right flank pain. The patient had a cystoscopy yesterday for gross hematuria, nephrolithiasis, status post bilateral selective cytology, right ureteroscopy with laser lithotri psy, right ureteral stent placement and random bladder biopsies were done and she was discharged home. At home last night she has lot of pain and her ureteral stent was coming out and she called the urology office in the morning and they told to pull the stent out and she pulled the stent out and the pain seemed better. Later at 3:00 p.m., the pain came back, severe right flank pain, and has some hematuria that is the reason she came here. Denies any fevers, was nauseous earlier with the pain medication and antiemetics, seemed to feel better now. Denies any chest pain, no shortness of breath, no cough, no headache, no blurred visions, no earache, no runny nose, no sore throat, resting comfortably and hemodynamically stable. Admission Exam Per Admitting Provider GENERAL: The patient is of moderate build, not in acute distress. VITAL SIGNS: Temperature 36.7, pulse 86, respiratory rate 17, blood pressure 164/81, oxygen 95% on room air. HEENT: Pupils equal, round and reactive to light. Oral mucosa moist. NECK: No JVD or neck masses. CARDIOVASCULAR: S1 and S2 heard. Regular rate and rhythm. No murmur, no gallop. RESPIRATORY SYSTEM: Normal AP diameter. No accessory muscle use. No wheezing, crackles. ABDOMEN: Soft, bowel sounds present. Mild right CVA tenderness present. No guarding. No rigidity, no distention. CENTRAL NERVOUS SYSTEM: Cranial nerves II through XII grossly intact, nonfocal. EXTREMITIES: No edema, no erythema. Principal Diagnosis UTI, status post accidental removal of the ureteral stent, hematuria, hypertension Discharge Exam Lying in bed comfortably Constitutional + ill appearing and average body habitus Eyes PERRL, conjunctivae normal, anicteric sclerae ENMT external ear and nose normal, oropharynx normal Respiratory no respiratory distress Auscultation: lungs clear to auscultation bilaterally Cardiovascular Rate/Rhythm: regular rate and regular rhythm; not tachycardic Heart Sounds: normal S1, normal S2 and + murmur Extremities: no edema Gastrointestinal (Abdomen) Inspection/Auscultation: normal bowel sounds; abdomen not distended Percussion/Palpation: + abdomen tender (Mildly tender right renal angle) and abdomen soft Neurologic normal touch/pain/proprioception and moves all extremities; no focal motor deficits Psychiatric A+Ox3, euthymic affect Lymphatic no cervical or axillary lymphadenopathy Discharge Data Allergies Allergy/AdvReac Type Severity Reaction Status Date / Time sulfamethoxazole Allergy Intermediate RASH Verified 02/18/23 19:33 trimethoprim Allergy Intermediate RASH Verified 02/18/23 19:33 Penicillins Allergy Mild Rash Verified 02/18/23 19:33 propoxyphene Allergy Mild Unknown Verified 02/18/23 19:33 Sulfa (Sulfonamide Allergy Mild Rash Verified 02/18/23 19:33 Antibiotics) venlafaxine [From Effexor] Allergy Mild Hives/Itchy Verified 02/18/23 19:33 /Rash amlodipine AdvReac Intermediate LEGS AND Verified 02/18/23 19:33 FEET GET TIGHT atorvastatin AdvReac Intermediate Inc Lft Verified 02/18/23 19:33 after Cholecystectomy enalapril AdvReac Intermediate tightness Verified 02/18/23 19:33 in ankles erythromycin base AdvReac Intermediate Vomiting Verified 02/18/23 19:33 fentanyl AdvReac Intermediate SEVERE Verified 02/18/23 19:33 N&V;DIZZY ondansetron [From Zofran] AdvReac Intermediate Nausea Verified 02/18/23 19:33 topiramate [From Topamax] AdvReac Intermediate "FINGERS Verified 02/18/23 19:33 NUMB" tramadol [From Ultram] AdvReac Intermediate Vomiting Verified 02/18/23 19:33 clindamycin AdvReac Mild Nausea Verified 02/18/23 19:33 codeine AdvReac Mild SICK TO Verified 02/18/23 19:33 STOMACH Quinolones AdvReac Mild N&V Verified 02/18/23 19:33 Consultations 02/18/23 20:53 ED Decision to Admit Stat 02/19/23 08:00 Consult Urology Routine Ordered Studies 02/18/23 17:10 CT abd pelvis wo con Stat Hospital Course (1) Right flank pain: Accidental removal of the right ureteric stent With right flank pain and hematuria Appreciate urology input and recommendation Pain seems to be resolved She will be discharged home this afternoon Her admission were changed to observation as per requirement and was discharged home (2) Kidney stone: History of nephrolithiasis Status post right ureteroscopy and laser lithotripsy earlier this week with right ureteric stent placement Central removal of the stent as above (3) UTI (urinary tract infection): Likely has UTI-UA is suggestive and culture is pending Allergic to too many antibiotics but has been on ceftriaxone since admission Will give oral Keflex to continue for next 7 days Macrobid was not given for potential side effect to develop (4) Paroxysmal atrial fibrillation: Rate is controlled (5) Hypertension: Remains on the upper side (6) Hematuria: Following the accidental removal of ureteric stent Appreciate urology input and recommendation Hematuria is expected to improve (7) GERD (gastroesophageal reflux disease): Continue current management Plan No contraindication from urologist for discharge Patient remains minimally weak but has been ambulating in the room She wanted to go home today She was discharged home this afternoon Total Time Total Time Spent Total Time Spent (In Minutes): 35 minutes Discharge Plan Discharge Items Patient Disposition: Home - Self-Care Reason For Visit: FLANK PAIN Discharge Diagnosis: UTI, status post accidental removal of the ureteral stent, hematuria, hypertension Condition on Discharge: Fair Activity: Resume your previous activity Non-emergency contact: Primary Care Provider Call non-emergency contact if: you have any medication questions and your symptoms worsen Follow-up/Referrals: Preston Villagran MD [Primary Care Provider] - (Your doctor's office will call you with an appointment within 7 days) Diet: Regular Addtl Attending Provider Instructions: Please take extreme precaution to avoid fall Try to drink more fluid Please finish the course of antibiotic Keep appointment with your healthcare providers Pending Studies at Discharge: No Stand-Alone Forms: My [employer], Smoking Cessation Medications and DC Order Prescriptions: New cephalexin 250 mg capsule 250 mg PO Q8H 7 Days Qty: 21 0RF Continued tamsulosin 0.4 mg capsule 0.4 mg PO DAILY Qty: 30 2RF Rx Instructions: Take one tablet at night time. rosuvastatin [Crestor] 5 mg tablet 5 mg PO HS sumatriptan succinate [Imitrex] 100 mg tablet 100 mg PO DAILY PRN (Reason: Migraine Headache) Prolia 60 mg/mL Syringe 1 dose SUBCUT Q180D Rx Instructions: takes in and april terazosin 1 mg capsule 1 mg PO HS Eliquis 2.5 mg Tablet 2.5 mg PO BID gabapentin 100 mg Capsule 100 mg PO TID dicyclomine 10 mg capsule 10 mg PO QID PRN (Reason: ABD PAIN) metoprolol tartrate 25 mg tablet 25 mg PO HS metoprolol tartrate 25 mg tablet 50 mg PO QAM acetaminophen [Tylenol] 325 mg Tablet 650 mg PO Q6 PRN (Reason: Pain) omeprazole 40 mg Capsule,Delayed Release(Dr/Ec) 40 mg PO DAILYBB cholecalciferol (vitamin D3) [Vitamin D3] 25 mcg (1,000 unit) Capsule 50 mcg PO BID Discharge Orders: Discharge Order (Routine); Ordered 02/19/23 Ordered By: Gracie Archer Admission Data Admit Date/Time: 02/18/23 23:22 Attending Provider: Gracie Archer Admit Provider: Feliz Hurtado Primary Care Provider: Preston Villagran Other Providers: Feliz Hurtado ; Chino Blanco ; Miguel Kaplan Christopher T. ; Diana Sousa ; Yariel Jacome ; Perla Lofton Melissa A. ; Iván Mathews ; Daja Yoo ; Joan Wang ; Edwin Davis ; Rufino Robert Other Interventions: Discharge Summary Assessment (RN) Last Done: 02/19/23 13:14
== END 2023-02-19 14:41 | disposition home or self-care (01) | DRG 690 ==
LOC: ED 16:52 → 3E 23:22

== ENCOUNTER 2023-05-13 07:46 | Inpatient (IN) ==
--- NOTE | 2023-05-13 08:02 | Emergency Department Note ---
History of Present Illness General Chief Complaint: Abdominal Pain Stated Complaint: ABD PAIN, BACK ACHE Time Seen by Provider: 05/13/23 07:53 History of Present Illness Provider Complaint: abdominal pain Onset (ago): 2 day(s) Pain Consistency: constant Location: LLQ Severity: moderate Maximum Pain Intensity: 6 Current Pain Intensity: 6 Quality: + stabbing and + sharp Relieved By: + nothing Exacerbated By: + nothing Context: no foreign travel, no possible food poisoning, no sick contacts, no recent antibiotic use, no recent surgery/procedure or no recent injury Associated Symptoms: + constipation; no nausea, no vomiting, no diarrhea, no fever, no chills, no dysuria, no hematemesis, no melena, no hematuria, no syncope and no neck pain Home Medications Medication Instructions Recorded Confirmed Type denosumab 60 mg/mL subcutaneous 1 dose subcut Q180D 01/14/19 05/13/23 History syringe (Prolia) sumatriptan succinate 100 mg 100 mg PO DAILY PRN Migraine 01/14/19 05/13/23 History tablet (Imitrex) Headache terazosin 1 mg capsule 1 mg PO HS 08/29/19 05/13/23 History apixaban 2.5 mg tablet (Eliquis) 2.5 mg PO BID 02/02/20 05/13/23 History gabapentin 100 mg capsule 100 mg PO TID 02/02/20 05/13/23 History dicyclomine 10 mg capsule 10 mg PO QID PRN ABD PAIN 06/06/20 05/13/23 History acetaminophen 325 mg tablet 650 mg PO Q6 PRN Pain 08/03/20 05/13/23 History (Tylenol) metoprolol tartrate 25 mg tablet 25 mg PO HS 10/13/20 05/13/23 History metoprolol tartrate 25 mg tablet 50 mg PO QAM 10/13/20 05/13/23 History cholecalciferol (vitamin D3) 25 50 mcg PO BID 01/21/21 05/13/23 History mcg (1,000 unit) capsule (Vitamin D3) omeprazole 40 mg capsule,delayed 40 mg PO DAILYBB 01/21/21 05/13/23 History release rosuvastatin 5 mg tablet (Crestor) 5 mg PO HS 10/06/21 05/13/23 History Allergies Allergy/AdvReac Type Severity Reaction Status Date / Time sulfamethoxazole Allergy Intermediate RASH Verified 05/13/23 08:59 trimethoprim Allergy Intermediate RASH Verified 05/13/23 08:59 Penicillins Allergy Mild Rash Verified 05/13/23 08:59 propoxyphene Allergy Mild Unknown Verified 05/13/23 08:59 Sulfa (Sulfonamide Allergy Mild Rash Verified 05/13/23 08:59 Antibiotics) venlafaxine [From Effexor] Allergy Mild Hives/Itchy Verified 05/13/23 08:59 /Rash amlodipine AdvReac Intermediate LEGS AND Verified 05/13/23 08:59 FEET GET TIGHT atorvastatin AdvReac Intermediate Inc Lft Verified 05/13/23 08:59 after Cholecystectomy enalapril AdvReac Intermediate tightness Verified 05/13/23 08:59 in ankles erythromycin base AdvReac Intermediate Vomiting Verified 05/13/23 08:59 fentanyl AdvReac Intermediate SEVERE Verified 05/13/23 08:59 N&V;DIZZY ondansetron [From Zofran] AdvReac Intermediate Nausea Verified 05/13/23 08:59 topiramate [From Topamax] AdvReac Intermediate "FINGERS Verified 05/13/23 08:59 NUMB" tramadol [From Ultram] AdvReac Intermediate Vomiting Verified 05/13/23 08:59 clindamycin AdvReac Mild Nausea Verified 05/13/23 08:59 codeine AdvReac Mild SICK TO Verified 05/13/23 08:59 STOMACH Quinolones AdvReac Mild N&V Verified 05/13/23 08:59 metronidazole AdvReac Unknown Unknown Verified 05/13/23 11:20 Past Med/Surg History Medical History (Updated 05/13/23 @ 14:17 by Satya Garces MD) Abdominal pain CKD (chronic kidney disease) stage 3, GFR 30-59 ml/min Diverticulosis Gastroparesis GERD (gastroesophageal reflux disease) History of skin cancer Hx of renal calculi Hyperlipidemia Hypertension Migraines On anticoagulant therapy ELIQUIS DAILY Pacemaker medtronic- checked remotely once per month- last office check 2-3 mos ago- Dr Prabhu TRISTAN Paroxysmal atrial fibrillation Prediabetes Sensorineural hearing loss (SNHL) of both ears Thoracic aortic aneurysm Mildly dilated on echo 02/2019 per cardiology, but not seen on 08/2019 echo at [facility]. Surgical History History of breast biopsy History of cataract surgery B/L History of cholecystectomy 02/02/2020; [facility]; MAC #3, ETT 7.0. No complications. History of cystoscopy W/ STONE EXTRACTION History of ERCP with stone removal and stent placement 02/28 [place] History of lumbar surgery History of Mohs micrographic surgery for skin cancer History of tooth extraction Hx of colonoscopy S/P cardiac pacemaker procedure Status post trigger finger release Family History Other Coronary heart disease No family history of adverse response to anesthesia Social History Smoking Status: Never smoker Second Hand Exposure: No; Do You Dip or Chew Tobacco: No; Hx Alcohol Use: Yes Hx Substance Use: No Preferred Language: Hungarian Communication Ability: Effective Visual Impairment: No Limitations Post Tensioning Ironworker Required: No Beliefs That Will Affect Care: None marital status: / Current Living Situation: Alone How many Children do You have: 0 Feels Safe at Home: Yes Assistive Devices: Glasses Physical Exam Vital Signs: Vital Signs - 24 hr 05/13/23 07:48 05/13/23 08:16 05/13/23 08:21 Temperature 36.5 C Temperature Source Temporal Artery Sc an Pulse Rate 64 63 Pulse Rate [Apical ] Pulse Rhythm Regular Pulse Rhythm [Apic al] Pulse Strength [Ap ical] Respiratory Rate 17 Respiratory Effort / Characteristics Non-Labored Sponta neous Respiratory Depth Normal Respiratory Patter n Regular Blood Pressure 121/70 Blood Pressure [Ri ght Arm] Blood Pressure Dawn n 87 Blood Pressure Dawn n [Right Arm] Blood Pressure Pos ition Sitting Pulse Oximetry 95 94 Oxygen Delivery Me thod Room Air Room Air Sepsis Recent Feve r Within 48 Hours No Sepsis New/Unexpla ined Change in Men jacqueline Status No Sepsis Action Take n by Nursing No Action Required 05/13/23 08:30 Temperature Temperature Source Pulse Rate Pulse Rate [Apical ] 61 Pulse Rhythm Pulse Rhythm [Apic al] Regular Pulse Strength [Ap ical] Normal Respiratory Rate 23 Respiratory Effort / Characteristics Non-Labored Sponta neous Respiratory Depth Normal Respiratory Patter n Regular Blood Pressure Blood Pressure [Ri ght Arm] 112/72 Blood Pressure Dawn n Blood Pressure Dawn n [Right Arm] 85 Blood Pressure Pos ition Pulse Oximetry 93 Oxygen Delivery Me thod Room Air Sepsis Recent Feve r Within 48 Hours Sepsis New/Unexpla ined Change in Men jacqueline Status Sepsis Action Take n by Nursing Physical Exam: Physical Exam GENERAL: She is oriented to person, place, and time. She appears well-developed and well-nourished. She does not appear distressed. NECK: Normal range of motion. Neck supple. No JVD present. No tracheal deviation and normal range of motion present. CV: Normal rate, regular rhythm, normal heart sounds and intact distal pulses. There is no peripheral edema. Palpable radial pulses bue. PULM/CHEST: Effort normal and breath sounds normal. No respiratory distress. No stridor. She has no wheezes. She has no rales. -Chest Wall: She exhibits no tenderness. ABD: The abdomen is soft. Bowel sounds are normal. She has no distension. No mass is present. There is tenderness to palpation of the left lower quadrant. There is no rebound, no guarding, no Hamilton's sign and no tenderness at McBurney's point. Rovsig negative. No CVA tenderness bilaterally MUSC/SKEL: Normal range of motion. There is no peripheral edema, tenderness or deformity. NEURO: Motor and sensation grossly intact. SKIN: Skin is warm and dry. She is not diaphoretic. PSYCH: She has a normal mood and affect. Behavior is normal. Judgment and thought content normal. Course Course 0753: The patient was evaluated in room C7. A complete history and physical exam was performed Cardiac monitoring: An order was placed for continuous cardiac monitoring. The monitor shows a rate of 60 with paced rhythm interpreted by or 0950: Vital signs stable. Labs show mild leukocytosis of 12.95 otherwise within normal limits. Mild bilirubin elevation of 1.3 and direct bilirubin level elevation 0.4. CT of the abdomen pelvis shows wall thickening with moderate associated inflammation of the distal sigmoid colon and rectum and inflamed diverticulum of the distal sigmoid colon with suspected single locule of extraluminal gas suggestive of a microperforation acute diverticulitis no abscess. Patient will be treated with IV antibiotics and admitted to the [facility] medical team. Administered Medications Gabapentin (Gabapentin 100 Mg Cap) 100 mg PO TID MANUELITO Stop: 06/12/23 13:59 Last Admin: 05/13/23 13:10 Dose: 100 mg Documented By: DEAN Sodium Chloride (Nss 1000ml) 1,000 mls @ 50 mls/hr IV .Q20H MANUELITO Stop: 05/15/23 02:29 Last Admin: 05/13/23 10:49 Dose: 50 mls/hr Documented By: CHARLINE Acetaminophen (Ofirmev) 1,000 mg in 100 mls @ 400 mls/hr IV Q8H PRN PRN Reason: abdominal pain Stop: 05/16/23 11:59 Last Infusion: 05/13/23 13:26 Dose: 0 mls/hr Documented By: Admin: 05/13/23 13:10 Dose: 400 mls/hr Documented By: DEAN Discontinued Medications Ceftriaxone Sodium 1,000 mg/ (Dextrose) 50 mls @ 100 mls/hr IV NOW STA Stop: 05/13/23 10:15 Last Infusion: 05/13/23 10:42 Dose: 0 mls/hr Documented By: Admin: 05/13/23 10:12 Dose: 100 mls/hr Documented By: HARSHA Metronidazole (Flagyl) 500 mg in 100 mls @ 100 mls/hr IV NOW STA Stop: 05/13/23 10:45 Last Admin: 05/13/23 11:42 Dose: Not Given Documented By: HARSHA Ioversol (Optiray 320 100ml) 92 ml IV ONCE ONE Stop: 05/13/23 09:13 Last Admin: 05/13/23 09:12 Dose: 92 ml Documented By: CARMEL Medical Decision Making Laboratory Data Attestation: I reviewed the patient's lab results. 05/13/23 08:12 05/13/23 08:12 Lab Results 05/13/23 05/13/23 05/13/23 Range/Units 08:12 08:12 08:16 WBC 12.95 H (4.8-10.8) K/ul RBC 3.98 L (4.20-5.40) M/uL Hgb 12.5 (12.0-16.0) g/dl POC Hgb 13.3 (12.0-16.0) g/dl Hct 36.6 L (37.0-47.0) % POC Hct 39 (37-47) % MCV 92.0 (80.0-100.0) fL MCH 31.4 (25.0-34.0) pg MCHC 34.2 (32.0-36.0) g/dL RDW Std Deviation 43.3 (36.4-46.3) fL RDW Coeff of Ling 12.7 (11.5-14.5) % Plt Count 202 (130-400) K/uL MPV 9.9 (9.4-12.4) fL Immature Gran % (Auto) 0.5 % Neut % (Auto) 85.7 % Lymph % (Auto) 6.0 % [place] % (Auto) 7.3 % Eos % (Auto) 0.3 % Baso % (Auto) 0.2 % Neut # (Auto) 11.09 H (1.40-6.50) K/uL Lymph # (Auto) 0.78 L (1.2-3.4) K/uL [place] # (Auto) 0.95 H (0.11-0.59) K/uL Eos # (Auto) 0.04 (0-0.50) K/uL Baso # (Auto) 0.03 (0-0.2) K/uL Immature Gran # (Auto) 0.06 (0.01-0.20) K/uL POC Sodium 138 (135-144) mmol/L Sodium 138 (136-145) mmol/L POC Potassium 3.6 (3.3-5.0) mmol/L Potassium 3.7 (3.5-5.1) mmol/L POC Chloride 101 (101-112) mmol/L Chloride 104 (98-107) mmol/L Carbon Dioxide 26 (21-32) mmol/L POC Total CO2 23 L (24-31) mmol/L Anion Gap 8 (3-11) POC Anion Gap 19.0 (16-25) mmol/L POC BUN 22 H (7-18) mg/dl BUN 22 (6-23) mg/dl Creatinine 0.82 (0.6-1.2) mg/dl POC Creatinine 0.8 (0.6-1.3) mg/dl Est Cr Clr Drug Dosing 36.5 ml/min Est GFR ( Amer) 74.6 ml/min Est GFR (Non-Af Amer) 64.3 ml/min BUN/Creatinine Ratio 26.8 H (10-20) Glucose 142 H (70-99(Fasting)) mg/dl POC Glucose (other) 147 H (70-99) mg/dl Calcium 9.1 (8.6-10.3) mg/dl POC Ioniz Calcium Sara 1.21 (1.12-1.32) mmol/l Total Bilirubin 1.3 H (0.2-1.0) mg/dl Direct Bilirubin 0.4 H (0-0.2) mg/dl AST 13 (13-39) U/L ALT 9 (7-52) U/L Alkaline Phosphatase 49 (34-104) U/L Total Protein 7.0 (6.0-8.3) gm/dl Albumin 4.1 (3.4-5.0) gm/dl Lipase 9 L (11-82) U/L [facility] Narrative 0753: The patient was evaluated in room C7. A complete history and physical exam was performed Cardiac monitoring: An order was placed for continuous cardiac monitoring. The monitor shows a rate of 60 with paced rhythm interpreted by me 0950: Vital signs stable. Labs show mild leukocytosis of 12.95 otherwise within normal limits. Mild bilirubin elevation of 1.3 and direct bilirubin level elevation 0.4. CT of the abdomen pelvis shows wall thickening with moderate associated inflammation of the distal sigmoid colon and rectum and inflamed diverticulum of the distal sigmoid colon with suspected single locule of extraluminal gas suggestive of a microperforation acute diverticulitis no abscess. Patient will be treated with IV antibiotics and admitted to the [facility] medical team. Impression & Plan Diverticulitis Discharge Plan Visit Data Chief Complaint: Abdominal Pain Stated Complaint: ABD PAIN, BACK ACHE ED Provider: Satya Garces Discharge Problem: Diverticulitis Patient Disposition: Admitted As Inpatient Discharge Instructions Interventions: ED Discharge Assessment Last Done: 05/13/23 12:38
[2023-05-13 08:30] LABS: iSTAT Creatinine 0.8 mg/dl (0.6-1.3); iSTAT Hemoglobin 13.3 g/dl (12.0-16.0); iSTAT Ionized Calcium 1.21 mmol/l (1.12-1.32); iSTAT Potassium 3.6 mmol/L (3.3-5.0)
[2023-05-13 08:46] LABS: Basophils # (auto) 0.03 K/uL (0-0.2); Basophils % (auto) 0.2 %; Eosinophils # (auto) 0.04 K/uL (0-0.50); Eosinophils % (auto) 0.3 %; Hematocrit (blood only) 36.6 % (37.0-47.0); Hemoglobin 12.5 g/dl (12.0-16.0); Immature Granulocytes # (auto) 0.06 K/uL (0.01-0.20); Immature Granulocytes % (auto) 0.5 %; Lymphocytes # (auto) 0.78 K/uL (1.2-3.4); Mean Corpuscular Hemoglobin 31.4 pg (25.0-34.0); Mean Corpuscular Hgb Conc 34.2 g/dL (32.0-36.0); Mean Platelet Volume 9.9 fL (9.4-12.4); Monocytes # (auto) 0.95 K/uL (0.11-0.59); Monocytes % (auto) 7.3 %; Neutrophils # (auto) 11.09 K/uL (1.40-6.50); Neutrophils % (auto) 85.7 %; Platelet Count 202 K/uL (130-400); RDW Coefficient of Variation 12.7 % (11.5-14.5); RDW Standard Deviation 43.3 fL (36.4-46.3); Red Blood Count 3.98 M/uL (4.20-5.40); White Blood Count 12.95 K/ul (4.8-10.8)
[2023-05-13] MEDS ORDERED: OPTIRAY 320 100ml IV ONE (09:12)
[2023-05-13 09:13] LABS: Albumin Level 4.1 gm/dl (3.4-5.0); BUN Creatinine Ratio 26.8 (10-20); Bilirubin Direct 0.4 mg/dl (0-0.2); Bilirubin,Total 1.3 mg/dl (0.2-1.0); Calcium 9.1 mg/dl (8.6-10.3); Creatinine Clr Calc Pharmacy 36.5 ml/min; Est GFR (African American) 74.6 ml/min; Est GFR (Non-African American) 64.3 ml/min; Potassium 3.7 mmol/L (3.5-5.1)
--- NOTE | 2023-05-13 09:40 | CT Scan Report ---
CT OF THE ABDOMEN AND PELVIS WITH CONTRAST CLINICAL HISTORY: Left lower quadrant pain. COMPARISON STUDY: CT of the abdomen and pelvis February 18, 2023. TECHNIQUE: Following IV administration of 92 mL of Optiray, axial images of the abdomen and pelvis we re obtained from the lung bases to the proximal femurs. Images were reviewed in the axial, sagittal, and coronal planes. IV contrast was administered without complication. Automated exposure control wa s utilized for the study. A dose lowering technique was utilized adhering to the principles of ALARA . CT DOSE: 492.55 mGy.cm FINDINGS: Lung bases are unremarkable. The liver, spleen, adrenal glands and pancreas are unremarkabl e. The gallbladder surgically absent. Diverticulum of the second portion of the duodenum is noted. Wa ter attenuation bilateral renal lesions reflect cysts. There is a septated cyst within the midpole of the left kidney. There is no hydronephrosis. There is no evidence for a bowel obstruction. There is colonic diverticulosis. Note is made of moderate wall thickening of the distal sigmoid colon and the rectum. There is moderate associated inflammation with presacral fluid. An inflamed diverticulum of t he distal sigmoid colon on axial image 242 of 357 is noted. There is an adjacent punctate locule susp ected extraluminal gas. No additional sites of bowel wall thickening are present. The appendix is nor mal. There is no rim-enhancing fluid collection to suggest an abscess. IMPRESSION: Wall thickening with moderate associated inflammation of the distal sigmoid colon and re ctum. Inflamed diverticulum of the distal sigmoid colon with suspected single locule of extraluminal gas suggestive of microperforation. Although longer rectal involvement than expected, the findings fa vor acute diverticulitis. No abscess. ACT 112: Negative or not required by law. Electronically signed by: Jaden Orozco M.D. 05/13/2023 9:38 AM
[2023-05-13] MEDS ORDERED: cefTRIAXone SODIUM 1,000 MG in DEXTROSE 5% AD-VAN 50 ML IV STA (09:46)
[2023-05-13] MEDS ORDERED: ALUMINUM/MAGNESIUM SUSP 30 ML UDC PO PRN (09:58)
[2023-05-13] MEDS ORDERED: MAGNESIUM HYDROXIDE SUSP 30 ML UDC PO PRN (09:58)
[2023-05-13] MEDS ORDERED: ONDANSETRON INJ 2 MG/ML 2 ML VIAL IV PRN (09:58)
--- NOTE | 2023-05-13 10:10 | History & Physical Report ---
Date of Service May 13, 2023 Assessment & Plan (1) Abdominal pain: (2) Diverticulitis: (3) Paroxysmal atrial fibrillation: (4) Hypertension: (5) Tachy-michael syndrome: (6) Hyperlipidemia: (7) GERD (gastroesophageal reflux disease): Plan 88 year old that presents with LLQ abdominal pain. Abdominal and pelvic CT suggestive of microperforation and acute diverticulitis. bowel rest, pain control with PRN IV Tylenol, Ceftriaxone and Flagyl. Check stool cultures and FOBT with gentle fluid hydration and general sugery consultation. Patient takes Eliquis for pAF; took AM dose at home; will hold tonight and start Heparin gtt (no bolus). Has tachy michael syndrome s/p Pacer and [facility] Abdominal pain: Diverticulitis: Abdominal/pelvic CT suggestive of microperforation and acute diverticulitis as outlined above. No abscess Leukocytosis 12.95; no signs of toxicity; will add a lactate Numerous allergies; started on ceftriaxone and Flagyl; continue Gentle IV fluids @ 50ml/Hour Stool sample; including CDiff Routine Tylenol IV PRN NPO General surgery consult placed Paroxysmal atrial fibrillation: HTN: Takes Eliquis and Metoprolol No signs of bleeding; did take Eliquis this AM Will hold for now and place on standard Heparin gtt without bolus Tachybradycardia syndrome: Status post pacemaker No signs of malfunction Follows with [facility] Last ECHO 02/2019; EF 65-70%, left ventricle normal size, mild concentric LVH, no wall motion abnormalities HLD: Takes rosuvastatin; continue GERD: Takes omeprazole; continue Disposition: PCP Dr. Huerta CODE STATUS: Full code VTE prophylaxis: On Eliquis; switching to heparin drip tonight I spent a total of 88 minutes coordinating, documenting, and providing care for this patient excluding time spent in the performance of separately billed services. All of the aforementioned completed while collaborating with the assigned attending physician for a full treatment plan. Please see their addendum for further details. History of Present Illness Chief Complaint: abdominal pain Primary Care Provider: Preston Villagran MD Ms. Xiong is an 88 year old female that presented to the [facility] today with LLQ abdominal pain that has been occurring for the past two days and describes it as sharp pain. She describes overall generalized pain; currently 4/10. When she lays flat, pain subsides. She felt like she needed to go to the bathroom, but was unable to produce anything. She denies any BRBPR, but does report one small encounter of a very small amount of blood. She does report rectal mucus.. She reports that the pain is gradually getting worse. She reports that it worsens with eating. She did not eat anything today. She did take her a .m. dose of Eliquis. 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 An abdominal and pelvic CT was performed with results indicating abdominal wall thickening with moderate associated inflammation of the distal sigmoid colon and rectum. Inflamed diverticulum of the distal sigmoid colon with suspected single locule of extraluminal gas suggestive of microperforation. Although longer rectal involvement than expected, the findings favor acute diverticulitis. No abscess noted on scan. She has had a recent inpatient hospitalization from 02/19 to 02/20 for which she presented with right flank pain status post right ureteroscopy and lithotripsy status post stent and has been being followed by urology as an outpatient. Additional past medical history includes paroxysmal A-fi(on Eliquis), tachybradycardia syndrome status post pacemaker, HTN, HLD, GERD, CKD stage III, history of gastroparesis and kidney stones, and degenerative disc disease. Patient denies tobacco, alcohol or recreational drug use. Patient has a living will and is to remain full code. Pt denies headache, dizziness, orthopnea, shortness of breath, visual or auditory changes, chest pain, palpitations, loss of bowel or bladder function, nausea, vomiting, BRBPR, urinary changes, recent falls or trauma. Patient will be admitted for further evaluation and management. Please see A/P for further details. Allergies Allergy/AdvReac Type Severity Reaction Status Date / Time sulfamethoxazole Allergy Intermediate RASH Verified 05/13/23 08:59 trimethoprim Allergy Intermediate RASH Verified 05/13/23 08:59 Penicillins Allergy Mild Rash Verified 05/13/23 08:59 propoxyphene Allergy Mild Unknown Verified 05/13/23 08:59 Sulfa (Sulfonamide Allergy Mild Rash Verified 05/13/23 08:59 Antibiotics) venlafaxine [From Effexor] Allergy Mild Hives/Itchy Verified 05/13/23 08:59 /Rash amlodipine AdvReac Intermediate LEGS AND Verified 05/13/23 08:59 FEET GET TIGHT atorvastatin AdvReac Intermediate Inc Lft Verified 05/13/23 08:59 after Cholecystectomy enalapril AdvReac Intermediate tightness Verified 05/13/23 08:59 in ankles erythromycin base AdvReac Intermediate Vomiting Verified 05/13/23 08:59 fentanyl AdvReac Intermediate SEVERE Verified 05/13/23 08:59 N&V;DIZZY ondansetron [From Zofran] AdvReac Intermediate Nausea Verified 05/13/23 08:59 topiramate [From Topamax] AdvReac Intermediate "FINGERS Verified 05/13/23 08:59 NUMB" tramadol [From Ultram] AdvReac Intermediate Vomiting Verified 05/13/23 08:59 clindamycin AdvReac Mild Nausea Verified 05/13/23 08:59 codeine AdvReac Mild SICK TO Verified 05/13/23 08:59 STOMACH Quinolones AdvReac Mild N&V Verified 05/13/23 08:59 Home Medications Medication Instructions Recorded Confirmed Type denosumab 60 mg/mL subcutaneous 1 dose subcut Q180D 01/14/19 05/13/23 History syringe (Prolia) sumatriptan succinate 100 mg 100 mg PO DAILY PRN Migraine 01/14/19 05/13/23 History tablet (Imitrex) Headache terazosin 1 mg capsule 1 mg PO HS 08/29/19 05/13/23 History apixaban 2.5 mg tablet (Eliquis) 2.5 mg PO BID 02/02/20 05/13/23 History gabapentin 100 mg capsule 100 mg PO TID 02/02/20 05/13/23 History dicyclomine 10 mg capsule 10 mg PO QID PRN ABD PAIN 06/06/20 05/13/23 History acetaminophen 325 mg tablet 650 mg PO Q6 PRN Pain 08/03/20 05/13/23 History (Tylenol) metoprolol tartrate 25 mg tablet 25 mg PO HS 10/13/20 05/13/23 History metoprolol tartrate 25 mg tablet 50 mg PO QAM 10/13/20 05/13/23 History cholecalciferol (vitamin D3) 25 50 mcg PO BID 01/21/21 05/13/23 History mcg (1,000 unit) capsule (Vitamin D3) omeprazole 40 mg capsule,delayed 40 mg PO DAILYBB 01/21/21 05/13/23 History release rosuvastatin 5 mg tablet (Crestor) 5 mg PO HS 10/06/21 05/13/23 History Past Med/Surg History Medical History (Updated 05/13/23 @ 10:06 by DEDE Sauceda) Abdominal pain CKD (chronic kidney disease) stage 3, GFR 30-59 ml/min Diverticulosis Gastroparesis GERD (gastroesophageal reflux disease) History of skin cancer Hx of renal calculi Hyperlipidemia Hypertension Migraines On anticoagulant therapy ELIQUIS DAILY Pacemaker medtronic- checked remotely once per month- last office check 2-3 mos ago- Dr Prabhu TRISTAN Paroxysmal atrial fibrillation Prediabetes Sensorineural hearing loss (SNHL) of both ears Thoracic aortic aneurysm Mildly dilated on echo 02/2019 per cardiology, but not seen on 08/2019 echo at [facility]. Surgical History History of breast biopsy History of cataract surgery B/L History of cholecystectomy 02/02/2020; [facility]; MAC #3, ETT 7.0. No complications. History of cystoscopy W/ STONE EXTRACTION History of ERCP with stone removal and stent placement 02/28 [place] History of lumbar surgery History of Mohs micrographic surgery for skin cancer History of tooth extraction Hx of colonoscopy S/P cardiac pacemaker procedure Status post trigger finger release Family History Other Coronary heart disease No family history of adverse response to anesthesia Social History Smoking Status: Never smoker Second Hand Exposure: No; Do You Dip or Chew Tobacco: No; Hx Alcohol Use: No Hx Substance Use: No Preferred Language: Irish Communication Ability: Effective Visual Impairment: No Limitations Hone Operator Required: No Beliefs That Will Affect Care: None marital status: / Current Living Situation: Alone How many Children do You have: 0 Feels Safe at Home: Yes Assistive Devices: None Review of Systems Review of Systems: Neuro: (-) Falls, trauma, slurred speech HEENT: (-) GALICIA, dizziness, dysphagia, visual or auditory changes CV: (-) CP, palpitations, swelling Resp: (-) SOB GI: (-) appetite changes, N/V/D, some blood tinged and mucus in diarrhea : (-) urinary changes Skin: (-) rashes Psych: (-) anxiety, depression Physical Exam Physical Exam: See Dr. Blackburn's addendum for physical examination findings Results & Data Results & Data Vital Signs (Past 12 Hours) Vital Signs Temp Pulse Pulse Resp BP BP Pulse Ox 05/13/23 08:30 61 23 112/72 93 05/13/23 08:21 63 05/13/23 08:16 94 05/13/23 07:48 36.5 C 64 17 121/70 95 O2 Del Method 05/13/23 08:30 Room Air 05/13/23 08:21 05/13/23 08:16 Room Air 05/13/23 07:48 Room Air Laboratory Results Short CBC 05/13/23 Range/Units 08:12 WBC 12.95 H (4.8-10.8) K/ul Hgb 12.5 (12.0-16.0) g/dl Hct 36.6 L (37.0-47.0) % Plt Count 202 (130-400) K/uL BMP 05/13/23 08:12 Sodium 138 Potassium 3.7 Chloride 104 Carbon Dioxide 26 BUN 22 Creatinine 0.82 Glucose 142 H Calcium 9.1 Liver Function 05/13/23 Range/Units 08:12 Total Bilirubin 1.3 H (0.2-1.0) mg/dl Direct Bilirubin 0.4 H (0-0.2) mg/dl AST 13 (13-39) U/L ALT 9 (7-52) U/L Alkaline Phosphatase 49 (34-104) U/L Albumin 4.1 (3.4-5.0) gm/dl Diagnostic Findings Abdomen/Pelvis CT 05/13/23 08:56 CT OF THE ABDOMEN AND PELVIS WITH CONTRAST CLINICAL HISTORY: Left lower quadrant pain. COMPARISON STUDY: CT of the abdomen and pelvis February 18, 2023. TECHNIQUE: Following IV administration of 92 mL of Optiray, axial images of the abdomen and pelvis were obtained from the lung bases to the proximal femurs. Images were reviewed in the axial, sagittal, and coronal planes. IV contrast was administered without complication. Automated exposure control was utilized for the study. A dose lowering technique was utilized adhering to the principles of ALARA. CT DOSE: 492.55 mGy.cm FINDINGS: Lung bases are unremarkable. The liver, spleen, adrenal glands and pancreas are unremarkable. The gallbladder surgically absent. Diverticulum of the second portion of the duodenum is noted. Water attenuation bilateral renal lesions reflect cysts. There is a septated cyst within the midpole of the left kidney. There is no hydronephrosis. There is no evidence for a bowel obstruction. There is colonic diverticulosis. Note is made of moderate wall thickening of the distal sigmoid colon and the rectum. There is moderate associated inflammation with presacral fluid. An inflamed diverticulum of the distal sigmoid colon on axial image 242 of 357 is noted. There is an adjacent punctate locule suspected extraluminal gas. No additional sites of bowel wall thickening are present. The appendix is normal. There is no rim-enhancing fluid collection to suggest an abscess. IMPRESSION: Wall thickening with moderate associated inflammation of the distal sigmoid colon and rectum. Inflamed diverticulum of the distal sigmoid colon with suspected single locule of extraluminal gas suggestive of microperforation. Although longer rectal involvement than expected, the findings favor acute diverticulitis. No abscess. ACT 112: Negative or not required by law. Electronically signed by: Jaden Orozco M.D. 05/13/2023 9:38 AM Code Status & VTE Plan Code Status Full Code in the event of cardiac or respiratory arrest Supervising Physician Co-Signing Physician Notes Patient is an 88-year-old female with history of tachybradycardia S/P pacemaker, paroxysmal atrial fibrillation on chronic anticoagulation with Coumadin, hypertension, GERD and other medical problems presents with history of worsening abdominal pain over the past 2 days duration. Abdominal pain is sharp to dull, predominantly left lower quadrant, hypogastric region, nonradiating. She denies any fever, chills, nausea, vomiting. She admits to have any significant bleeding per rectum. Please review HPI for complete details of presentation. Physical Exam: Vitals signs as noted above General Appearance:Thin, no apparent distress Head: normocephalic, Atraumatic Eyes: normal inspection, EOMI Neck: supple, Trachea midline Respiratory/Chest: Normal breath sounds, CTA, No accessory muscle use Cardiovascular: S1, S2, No murmur, +Pacer Abdomen/GI:Soft, LLQ tender, Bowel sounds present Extremities/Musculoskeletal:normal inspection, no edema Neurologic/Psych:AAOX3, grossly no focal neurological deficits Skin: normal color, warm Acute diverticulitis with microperforation Paroxysmal atrial fibrillation Tachybradycardia syndrome s/p pacer Agree with gentle IV fluids, IV antibiotics, bowel rest, pain control, surgery consult Hold Eliquis and utilize IV heparin for now Check stool studies abdominal pain diarrhea Blood cultures ordered I personally reviewed the record. Patient is interviewed and examined at bedside. Patient's care is coordinated with June AGUAYO. Please refer to the documentation above for details of patient's presentation and for discussion of other issues. (7) GERD (gastroesophageal reflux disease) Esophagitis presence: without esophagitis Qualified Code(s): K21.9 - Gastro- esophageal reflux disease without esophagitis
[2023-05-13] MEDS ORDERED: Heparin IV Adult Wt-Based Standard *NO* Bolus Protocol IV SCH (10:45)
[2023-05-13] MEDS: SODIUM CHLORIDE 0.9% 1000ML 1,000 ML IV SCH (10:49)
[2023-05-13] MEDS ORDERED: HEPARIN SODIUM/DEXTROSE 25,000 UNITS/500 ML BAG IV SCH (11:00)
[2023-05-13] MEDS: metroNIDAZOLE 500 MG/100 ML BAG IV STA ×2 (11:06→11:42)
--- NOTE | 2023-05-13 11:31 | Surgery Consultation ---
Date of Consultation May 13, 2023 Assessment & Plan (1) Diverticulitis: Patient appears to have a microperforation She will be admitted to the hospital for IV fluids and IV antibiotics May consider ID consult for continued IV antibiotics and p.o. antibiotics at home Patient can have ice chips from a surgical standpoint But otherwise should be kept n.p.o. for approximately 48 hours Then slowly advance her diet Try to avoid emergency/urgent operation and that this would entail a colostomy We will continue to follow patient History of Present Illness History of Present Illness 88-year-old female presenting to the emergency room with left lower quadrant abdominal pain over the past 2 to 3 days She is found on CT scan to have acute diverticulitis with a likely microperforation in the very distal sigmoid proximal rectal area Appears to be in the right pelvis area She does have a history of atrial fibrillation and is on Eliquis She has a pacemaker for tachybradycardia syndrome Currently she is in her ER bed and she is awake and alert in no distress and her vital signs are stable Allergies Allergy/AdvReac Type Severity Reaction Status Date / Time sulfamethoxazole Allergy Intermediate RASH Verified 05/13/23 08:59 trimethoprim Allergy Intermediate RASH Verified 05/13/23 08:59 Penicillins Allergy Mild Rash Verified 05/13/23 08:59 propoxyphene Allergy Mild Unknown Verified 05/13/23 08:59 Sulfa (Sulfonamide Allergy Mild Rash Verified 05/13/23 08:59 Antibiotics) venlafaxine [From Effexor] Allergy Mild Hives/Itchy Verified 05/13/23 08:59 /Rash amlodipine AdvReac Intermediate LEGS AND Verified 05/13/23 08:59 FEET GET TIGHT atorvastatin AdvReac Intermediate Inc Lft Verified 05/13/23 08:59 after Cholecystectomy enalapril AdvReac Intermediate tightness Verified 05/13/23 08:59 in ankles erythromycin base AdvReac Intermediate Vomiting Verified 05/13/23 08:59 fentanyl AdvReac Intermediate SEVERE Verified 05/13/23 08:59 N&V;DIZZY ondansetron [From Zofran] AdvReac Intermediate Nausea Verified 05/13/23 08:59 topiramate [From Topamax] AdvReac Intermediate "FINGERS Verified 05/13/23 08:59 NUMB" tramadol [From Ultram] AdvReac Intermediate Vomiting Verified 05/13/23 08:59 clindamycin AdvReac Mild Nausea Verified 05/13/23 08:59 codeine AdvReac Mild SICK TO Verified 05/13/23 08:59 STOMACH Quinolones AdvReac Mild N&V Verified 05/13/23 08:59 metronidazole AdvReac Unknown Unknown Verified 05/13/23 11:20 Home Medications Medication Instructions Recorded Confirmed Type denosumab 60 mg/mL subcutaneous 1 dose subcut Q180D 01/14/19 05/13/23 History syringe (Prolia) sumatriptan succinate 100 mg 100 mg PO DAILY PRN Migraine 01/14/19 05/13/23 History tablet (Imitrex) Headache terazosin 1 mg capsule 1 mg PO HS 08/29/19 05/13/23 History apixaban 2.5 mg tablet (Eliquis) 2.5 mg PO BID 02/02/20 05/13/23 History gabapentin 100 mg capsule 100 mg PO TID 02/02/20 05/13/23 History dicyclomine 10 mg capsule 10 mg PO QID PRN ABD PAIN 06/06/20 05/13/23 History acetaminophen 325 mg tablet 650 mg PO Q6 PRN Pain 08/03/20 05/13/23 History (Tylenol) metoprolol tartrate 25 mg tablet 25 mg PO HS 10/13/20 05/13/23 History metoprolol tartrate 25 mg tablet 50 mg PO QAM 10/13/20 05/13/23 History cholecalciferol (vitamin D3) 25 50 mcg PO BID 01/21/21 05/13/23 History mcg (1,000 unit) capsule (Vitamin D3) omeprazole 40 mg capsule,delayed 40 mg PO DAILYBB 01/21/21 05/13/23 History release rosuvastatin 5 mg tablet (Crestor) 5 mg PO HS 10/06/21 05/13/23 History Patient History Medical History (Updated 05/13/23 @ 11:29 by Isac Devine MD, FACS) Abdominal pain CKD (chronic kidney disease) stage 3, GFR 30-59 ml/min Diverticulosis Gastroparesis GERD (gastroesophageal reflux disease) History of skin cancer Hx of renal calculi Hyperlipidemia Hypertension Migraines On anticoagulant therapy ELIQUIS DAILY Pacemaker medtronic- checked remotely once per month- last office check 2-3 mos ago- Dr Prabhu [facility] Paroxysmal atrial fibrillation Prediabetes Sensorineural hearing loss (SNHL) of both ears Thoracic aortic aneurysm Mildly dilated on echo 02/2019 per cardiology, but not seen on 08/2019 echo at [facility]. Surgical History History of breast biopsy History of cataract surgery B/L History of cholecystectomy 02/02/2020; [facility]; MAC #3, ETT 7.0. No complications. History of cystoscopy W/ STONE EXTRACTION History of ERCP with stone removal and stent placement 02/28 [place] History of lumbar surgery History of Mohs micrographic surgery for skin cancer History of tooth extraction Hx of colonoscopy S/P cardiac pacemaker procedure Status post trigger finger release Family History Other Coronary heart disease No family history of adverse response to anesthesia Social History Smoking Status: Never smoker Second Hand Exposure: No; Do You Dip or Chew Tobacco: No; Hx Alcohol Use: No Hx Substance Use: No Preferred Language: Bahamian Communication Ability: Effective Visual Impairment: No Limitations Sound Engineering Technician Required: No Beliefs That Will Affect Care: None marital status: / Current Living Situation: Alone How many Children do You have: 0 Feels Safe at Home: Yes Assistive Devices: None Review of Systems Review of Systems: All systems reviewed & are unremarkable except as noted in HPI & below Physical Exam Constitutional: well developed; no acute distress Eyes: + anicteric sclerae Respiratory: normal respiratory effort; no respiratory distress Cardiovascular: Rate/Rhythm: not tachycardic Gastrointestinal (Abdomen): Inspection/Auscultation: abdomen not distended Musculoskeletal: Head/Neck/Chest: head atraumatic Skin: no rashes, warm and dry Neurologic: awake Psychiatric: Orientation: alert Results & Data Vital Signs (Past 12 Hours) Vital Signs Temp Pulse Pulse Resp BP BP Pulse Ox 05/13/23 10:00 62 16 114/69 97 05/13/23 10:00 97 05/13/23 08:30 61 23 112/72 93 05/13/23 08:21 63 05/13/23 08:16 94 05/13/23 07:48 36.5 C 64 17 121/70 95 O2 Del Method 07/07/23 10:00 Room Air 05/13/23 10:00 Room Air 05/13/23 08:30 Room Air 05/13/23 08:21 05/13/23 08:16 Room Air 05/13/23 07:48 Room Air Laboratory Results I reviewed her laboratories Diagnostic Findings I reviewed her CT scan and films PG Care Time/CCT Total # of Minutes Spent Total Time Spent with Patient: Total time spent is greater than 50% in coordination of care (as documented) at patient's floor/unit and/or counseling patient: Coding Level of Care Code 13917 OP VST NEW LOW 30-44 MIN Diagnoses Diverticulitis K57.92
[2023-05-13 12:08] LABS: Appearance Urine Clear (Clear); Bacteria Urine Automated Negative (Negative); Bilirubin Urine Negative (Negative); Blood Urine Negative (Negative); Cast Urine Automated 0 /lpf (0-5); Color Urine Yellow; Glucose Urine UA Negative (Negative); Ketones Urine Trace (Negative); Leukocyte Esterase Urine Negative (Negative); Nitrite Urine Negative (Negative); RBC Urine Automated 0-4 /hpf (0-4); Specific Gravity Urine > 1.045 (1.000-1.030); Urobilinogen Urine Negative (Negative)
[2023-05-13 12:10] LABS: Protein Urine Trace (Negative)
[2023-05-13] MEDS: GABAPENTIN 100 MG CAP PO SCH ×2 (13:10→20:02)
[2023-05-13] MEDS: ACETAMINOPHEN 1,000 MG/100 ML VIAL IV PRN (13:10)
[2023-05-13] MEDS: HEPARIN SODIUM/DEXTROSE 25,000 UNITS/500 ML BAG IV SCH (19:32)
[2023-05-13 20:00] LABS: Partial Thromboplastin Ratio 1.3; Partial Thromboplastin Time 35.9 Seconds (21.0-31.0)
[2023-05-13] MEDS: METOPROLOL TARTRATE 25 MG TAB PO SCH (20:02)
[2023-05-13] MEDS: ROSUVASTATIN CALCIUM 5 MG TAB PO SCH (20:03)
[2023-05-13] MEDS: TERAZOSIN HCL 1 MG CAP PO SCH (20:03)
[2023-05-13] MEDS: ACETAMINOPHEN 325 MG TAB PO PRN (20:06)
[2023-05-14 02:30] LABS: Hematocrit (blood only) 34.4 % (37.0-47.0); Hemoglobin 11.6 g/dl (12.0-16.0); Mean Corpuscular Hemoglobin 31.2 pg (25.0-34.0); Mean Corpuscular Hgb Conc 33.7 g/dL (32.0-36.0); Mean Corpuscular Volume 92.5 fL (80.0-100.0); Platelet Count 171 K/uL (130-400); RDW Coefficient of Variation 12.6 % (11.5-14.5); RDW Standard Deviation 42.1 fL (36.4-46.3); Red Blood Count 3.72 M/uL (4.20-5.40); White Blood Count 8.66 K/ul (4.8-10.8)
[2023-05-14] MEDS: ACETAMINOPHEN 1,000 MG/100 ML VIAL IV PRN ×2 (02:53→20:47)
[2023-05-14 03:02] LABS: Albumin Globulin Ratio 1.5 (0.9-2); Albumin Level 3.8 gm/dl (3.4-5.0); BUN Creatinine Ratio 23.2 (10-20); Bilirubin,Total 0.7 mg/dl (0.2-1.0); Calcium 8.7 mg/dl (8.6-10.3); Creatinine Clr Calc Pharmacy 43.3 ml/min; Est GFR (African American) 90.7 ml/min; Est GFR (Non-African American) 78.3 ml/min; Globulin 2.5 gm/dl (2.5-4.0); Potassium 3.6 mmol/L (3.5-5.1); Total Protein 6.3 gm/dl (6.0-8.3)
[2023-05-14 03:17] LABS: Partial Thromboplastin Time 56.3 Seconds (21.0-31.0)
--- NOTE | 2023-05-14 05:53 | Surgery Progress Note ---
Date of Service May 14, 2023 Assessment & Plan (1) Diverticulitis: Plan: Patient has been admitted on the hospitalist service. We recommend proceeding as follows from a surgical perspective: Continue n.p.o. status. The decision about advancing her diet will be based on further clinical improvement Continue intravenous fluids for hydration while n.p.o. Continue analgesics Continue antiemetics Continue antibiotics in the form of ertapenem Labs this morning show resolution of her leukocytosis The patient is currently receiving a heparin infusion, therefore no further DVT measures are required Admission and Anticipated Discharge Date Admission Date: May 13, 2023 Supervising Physician Co-Signing Physician Notes Dr. Devinepatient with complicated diverticulitis We will continue on only ice today and then consider clear liquids tomorrow Continue IV antibiotics Patient should have follow-up with either [facility] or colorectal surgery at [facility] from a surgical standpoint Subjective Patient is resting comfortably in bed. Since admission the patient notes slight improvement of her abdominal pain. She is passing flatus but has not had a bowel movement. She denies any nausea or vomiting. Physical Exam Gastrointestinal (Abdomen): Abdomen is soft, nonrigid, nondistended. Bowel sounds are present. Patient did have pain with palpation in her abdomen which is greatest in the left lower quadrant. Results & Data Vital Signs (Past 12 Hours) Vital Signs Temp Pulse Pulse Resp BP Pulse Ox O2 Del Method 05/14/23 03:36 36.6 C 68 18 124/74 97 Room Air 05/13/23 23:15 65 05/13/23 23:10 36.6 C 72 18 121/80 96 Room Air 05/13/23 19:14 36.9 C 77 18 131/79 96 Room Air PG Care Time/CCT Total # of Minutes Spent Total Time Spent with Patient: Total time spent is greater than 50% in coordination of care (as documented) at patient's floor/unit and/or counseling patient: Coding Level of Care Code 94242 SUB INP/OBS CARE Diagnoses Diverticulitis K57.92
[2023-05-14] MEDS: SODIUM CHLORIDE 0.9% 1000ML 1,000 ML IV SCH (06:30)
[2023-05-14] MEDS: METOPROLOL TARTRATE 50 MG TAB PO SCH (08:40)
[2023-05-14] MEDS: ERTAPENEM SODIUM 1,000 MG in SYRINGE 0 ML IV SCH (08:41)
[2023-05-14] MEDS: GABAPENTIN 100 MG CAP PO SCH ×3 (08:41→20:44)
--- NOTE | 2023-05-14 11:18 | Hospitalist Progress Note ---
Date of Service May 14, 2023 Assessment & Plan (1) Abdominal pain: Plan: 88 year old that presents with LLQ abdominal pain. Abdominal and pelvic CT suggestive of microperforation and acute diverticulitis. bowel rest, pain control with PRN IV Tylenol, iv Ertapenem. Check stool cultures and FOBT with gentle fluid hydration and general sugery consultation. Patient takes Eliquis for pAF; took AM dose at home; will hold tonight and start Heparin gtt (no bolus). Has tachy michael syndrome s/p Pacer and follows [facility] (2) Diverticulitis: Plan: Abdominal pain: Diverticulitis: Abdominal/pelvic CT suggestive of microperforation and acute diverticulitis as outlined above. No abscess Leukocytosis 12.95; no signs of toxicity; will add a lactate Numerous allergies with antibiotics and she has been on ertapenem-ID has been consulted Gentle IV fluids @ 50ml/Hour Stool sample; including CDiff Routine Tylenol IV PRN We will get to symptomatic management Appreciate surgery input and recommendation-continue with the conservative care for now (3) Paroxysmal atrial fibrillation: Plan: Takes Eliquis and Metoprolol No signs of bleeding; did take Eliquis this AM Will hold for now and place on standard Heparin gtt without bolus Heart rate remains stable and will get an EKG (4) Hypertension: (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 Huerta CODE STATUS: Full code VTE prophylaxis: On Eliquis; switching to heparin drip tonight Admission and Anticipated Discharge Date Admission Date: May 13, 2023 Subjective 05/14/2023 The patient was seen and examined in telemetry unit She has been feeling a little better but still has the pain in the lower abdomen No bloating, no nausea and or vomiting No palpitation, chest pain or shortness of breath Review of Systems Review of Systems: All systems reviewed and are unremarkable except as noted below Cardiovascular: Additional Comments: No palpitation, chest pain or shortness of breath Gastrointestinal: Abdominal pain in the lower quadrants without any nausea, vomiting or bloating Physical Exam Physical Exam: Sitting at the edge of the bed without any acute distress Constitutional: + ill appearing and average body habitus Eyes: PERRL, conjunctivae normal, anicteric sclerae ENMT: external ear and nose normal, oropharynx normal Neck: trachea midline, no thyromegaly Respiratory: no respiratory distress Auscultation: lungs clear to auscultation bilaterally Cardiovascular: Rate/Rhythm: + irregularly irregular Heart Sounds: normal S1, normal S2 and + murmur Extremities: no edema Gastrointestinal (Abdomen): Inspection/Auscultation: + abdomen distended (Minimally distended) and normal bowel sounds Percussion/Palpation: + abdomen tender (Lower quadrants) Musculoskeletal: No acute arthritis involving any of the joint Neurologic: Alert, awake and oriented x3. Generally weak without any focal neurodeficit Lymphatic: no cervical or axillary lymphadenopathy Results & Data Results & Data Vital Signs (Past 12 Hours) Vital Signs Temp Pulse Pulse Resp BP Pulse Ox O2 Del Method 05/14/23 07:25 36.8 C 71 14 134/90 94 Room Air 05/14/23 03:36 36.6 C 68 18 124/74 97 Room Air 05/13/23 23:15 65 Laboratory Results Short CBC 05/14/23 Range/Units 01:59 WBC 8.66 (4.8-10.8) K/ul Hgb 11.6 L (12.0-16.0) g/dl Hct 34.4 L (37.0-47.0) % Plt Count 171 (130-400) K/uL BMP 05/14/23 01:59 Sodium 137 Potassium 3.6 Chloride 105 Carbon Dioxide 25 BUN 16 Creatinine 0.69 Glucose 101 H Calcium 8.7 Liver Function 05/14/23 Range/Units 01:59 Total Bilirubin 0.7 D (0.2-1.0) mg/dl AST 11 L (13-39) U/L ALT 8 (7-52) U/L Alkaline Phosphatase 48 (34-104) U/L Albumin 3.8 (3.4-5.0) gm/dl Urine 05/13/23 Range/Units 11:45 Urine Color Yellow Urine Appearance Clear (Clear) Urine pH 8.0 H (4.5-7.5) Ur Specific Sheldon > 1.045 H (1.000-1.030) Urine Protein Trace H (Negative) Urine Glucose (UA) Negative (Negative) Medications Administered Current Inpatient Medications Acetaminophen (Acetaminophen 325 Mg Tab) 650 mg PO Q4H PRN PRN Reason: Pain or Fever Stop: 06/12/23 09:57 Last Admin: 05/13/23 20:06 Dose: 650 mg Al Hydrox/Mg Hydrox/Simethicone (Aluminum/Magnesium Susp 30 Ml Udc) 15 ml PO Q4H PRN PRN Reason: Dyspepsia Stop: 06/12/23 09:57 Gabapentin (Gabapentin 100 Mg Cap) 100 mg PO TID [facility] Stop: 06/12/23 13:59 Last Admin: 05/14/23 08:41 Dose: 100 mg Sodium Chloride (Nss 1000ml) 1,000 mls @ 50 mls/hr IV .Q20H [facility] Stop: 05/15/23 02:29 Last Admin: 05/14/23 06:30 Dose: 50 mls/hr Acetaminophen (Ofirmev) 1,000 mg in 100 mls @ 400 mls/hr IV Q8H PRN PRN Reason: abdominal pain Stop: 05/16/23 11:59 Last Infusion: 05/14/23 03:10 Dose: Infused Heparin Sodium/Dextrose (Heparin Sodium/Dextrose) 25,000 units in 500 mls @ 18 mls/hr IV .Q24H [facility]; Protocol Stop: 06/12/23 19:29 Last Admin: 05/13/23 19:32 Dose: 900 units/hr, 18 mls/hr Ertapenem 1,000 mg/ Syringe 10 mls @ 2 mls/min IV Q24H [facility] Stop: 05/18/23 07:59 Last Admin: 05/14/23 08:41 Dose: 2 mls/min Magnesium Hydroxide (Magnesium Hydroxide Susp 30 Ml Udc) 30 ml PO Q12H PRN PRN Reason: Constipation Stop: 06/12/23 09:57 Metoprolol Tartrate (Metoprolol Tartrate 25 Mg Tab) 25 mg PO HS [facility] Stop: 06/12/23 20:59 Last Admin: 05/13/23 20:02 Dose: 25 mg Metoprolol Tartrate (Metoprolol Tartrate 50 Mg Tab) 50 mg PO QAM [facility] Stop: 06/13/23 08:59 Last Admin: 05/14/23 08:40 Dose: 50 mg Ondansetron HCl (Ondansetron Inj 2 Mg/Ml 2 Ml Vial) 4 mg IV Q6H PRN PRN Reason: Nausea Stop: 06/12/23 09:57 Rosuvastatin Calcium (Rosuvastatin Calcium 5 Mg Tab) 5 mg PO HS [facility] Stop: 06/12/23 20:59 Last Admin: 05/13/23 20:03 Dose: 5 mg Terazosin HCl (Terazosin Hcl 1 Mg Cap) 1 mg PO HS [facility] Stop: 06/12/23 20:59 Last Admin: 05/13/23 20:03 Dose: 1 mg (7) GERD (gastroesophageal reflux disease) Esophagitis presence: without esophagitis Qualified Code(s): K21.9 - Gastro- esophageal reflux disease without esophagitis
--- NOTE | 2023-05-14 12:46 | XRay Report ---
XR chest 1V portable HISTORY: 88 years-old Female r/o CHF acute shortness of breath COMPARISON: 05/16/2022 TECHNIQUE: AP view of the chest FINDINGS: Cardiac silhouette is enlarged. Left subclavian pacer. No pneumothorax, pleural effusion, airspace co nsolidation or pulmonary edema. Degenerative changes of the shoulders and spine. IMPRESSION: No acute process. ACT 112: Negative or not required by law. The above report was generated using voice recognition software. It may contain grammatical, syntax o r spelling errors. Electronically signed by: Roe Joseph M.D. 05/14/2023 12:45 PM
[2023-05-14] MEDS: METOPROLOL TARTRATE 25 MG TAB PO SCH (20:44)
[2023-05-14] MEDS: TERAZOSIN HCL 1 MG CAP PO SCH (20:44)
[2023-05-14] MEDS: ROSUVASTATIN CALCIUM 5 MG TAB PO SCH (20:44)
[2023-05-14] MEDS: HEPARIN SODIUM/DEXTROSE 25,000 UNITS/500 ML BAG IV SCH (22:18)
--- NOTE | 2023-05-15 05:55 | Surgery Progress Note ---
Date of Service May 15, 2023 Assessment & Plan (1) Diverticulitis: Plan: Patient has been admitted on the hospitalist service. Continue care as follows: Continue n.p.o. status for the present time. As the patient has been passing flatus consideration may be given to slowly advancing her diet beginning with sips of clear liquids. Continue intravenous fluids for hydration until oral intake is adequate Continue analgesics Continue antiemetics Continue antibiotics in the form of ertapenem Check a.m. labs when available The patient is currently receiving a heparin infusion, therefore no further DVT measures are required Admission and Anticipated Discharge Date Admission Date: May 13, 2023 Supervising Physician Co-Signing Physician Notes Dr. Esteves seems to be doing relatively well on ice chips She does have some discomfort but seems to be walking We will advance her to clear liquids today She has only had 48 hours of antibiotics and does appear to have had a contained perforation I would not be in a portillo to discharge her home Subjective Patient is currently resting comfortably in bed. She denies any nausea or vomiting. She notes that her abdominal pain has improved since admission. She has not had a bowel movement but has passed flatus. She says she has ambulated in the hallway. Physical Exam Gastrointestinal (Abdomen): Abdomen is soft, nonrigid, nondistended. There is no rebound tenderness or guarding. Patient did have pain with palpation in the left lower quadrant but this appeared less severe than was noted on yesterday's exam. Results & Data Vital Signs (Past 12 Hours) Vital Signs Temp Pulse Pulse Resp BP Pulse Ox O2 Del Method 05/15/23 03:11 36.8 C 76 18 111/77 94 Room Air 05/15/23 00:34 72 05/14/23 22:30 37.0 C 74 18 109/69 93 Room Air 05/14/23 19:53 36.6 C 86 18 150/90 H 94 Room Air PG Care Time/CCT Total # of Minutes Spent Total Time Spent with Patient: Total time spent is greater than 50% in coordination of care (as documented) at patient's floor/unit and/or counseling patient: Coding Level of Care Code 65077 SUB INP/OBS CARE Diagnoses Diverticulitis K57.92
[2023-05-15 06:48] LABS: Basophils # (auto) 0.02 K/uL (0-0.2); Basophils % (auto) 0.3 %; Eosinophils # (auto) 0.13 K/uL (0-0.50); Eosinophils % (auto) 2.2 %; Hematocrit (blood only) 34.4 % (37.0-47.0); Hemoglobin 11.7 g/dl (12.0-16.0); Immature Granulocytes # (auto) 0.04 K/uL (0.01-0.20); Immature Granulocytes % (auto) 0.7 %; Lymphocytes # (auto) 1.24 K/uL (1.2-3.4); Lymphocytes % (auto) 21.3 %; Mean Corpuscular Hemoglobin 31.2 pg (25.0-34.0); Mean Corpuscular Volume 91.7 fL (80.0-100.0); Mean Platelet Volume 9.5 fL (9.4-12.4); Monocytes # (auto) 0.33 K/uL (0.11-0.59); Monocytes % (auto) 5.7 %; Neutrophils # (auto) 4.07 K/uL (1.40-6.50); Neutrophils % (auto) 69.8 %; Platelet Count 204 K/uL (130-400); RDW Coefficient of Variation 12.1 % (11.5-14.5); RDW Standard Deviation 40.8 fL (36.4-46.3); Red Blood Count 3.75 M/uL (4.20-5.40); White Blood Count 5.83 K/ul (4.8-10.8)
--- NOTE | 2023-05-15 07:02 | Electrocardiogram Report ---
Test Reason : Blood Pressure : / mmHG Vent. Rate : 087 BPM Atrial Rate : 087 BPM P-R Int : 270 ms QRS Dur : 090 ms QT Int : 376 ms P-R-T Axes : 000 -12 008 degrees QTc Int : 452 ms Atrial-paced rhythm with prolonged AV conduction Abnormal ECG When compared with ECG of 16-MAY-2022 09:10, No significant change was found Confirmed by Seven Lama [id number]) on 05/15/2023 7:02:21 AM Referred By: REFERRED SELF Confirmed By:Samm Lama
[2023-05-15 07:27] LABS: Albumin Globulin Ratio 1.3 (0.9-2); Albumin Level 3.6 gm/dl (3.4-5.0); Bilirubin,Total 0.4 mg/dl (0.2-1.0); Creatinine Clr Calc Pharmacy 48.2 ml/min; Est GFR (Non-African American) 81.1 ml/min; Globulin 2.7 gm/dl (2.5-4.0); Magnesium 2.1 mg/dl (1.7-2.4); Phosphorus 1.9 mg/dl (2.5-4.9); Potassium 3.5 mmol/L (3.5-5.1); Total Protein 6.3 gm/dl (6.0-8.3)
[2023-05-15] MEDS: ERTAPENEM SODIUM 1,000 MG in SYRINGE 0 ML IV SCH (07:46)
[2023-05-15] MEDS ORDERED: POTASSIUM PHOS 3 MMOL/1 ML INFUSION IV STA (07:52)
[2023-05-15 07:54] LABS: Partial Thromboplastin Time 57.5 Seconds (21.0-31.0)
[2023-05-15] MEDS ORDERED: POTASSIUM PHOSPHATE 24 MMOL in SODIUM CHLORIDE 0.9% 500 ML IV ONE (08:30)
[2023-05-15] MEDS: SUMAtriptan succinate 100 MG TAB PO PRN (09:45)
[2023-05-15] MEDS: METOPROLOL TARTRATE 50 MG TAB PO SCH (10:57)
[2023-05-15] MEDS: GABAPENTIN 100 MG CAP PO SCH ×3 (10:58→20:25)
[2023-05-15] MEDS: ACETAMINOPHEN 1,000 MG/100 ML VIAL IV PRN ×2 (11:08→20:24)
--- NOTE | 2023-05-15 11:25 | Hospitalist Progress Note ---
Date of Service May 15, 2023 Assessment & Plan (1) Abdominal pain: Plan: 88 year old that presents with LLQ abdominal pain. Abdominal and pelvic CT suggestive of microperforation and acute diverticulitis. bowel rest, pain control with PRN IV Tylenol, iv Ertapenem. Check stool cultures and FOBT with gentle fluid hydration and general sugery consultation. Patient takes Eliquis for pAF; took AM dose at home; will hold tonight and start Heparin gtt (no bolus). Has tachy michael syndrome s/p Pacer and follows [facility] No more abdominal pain Migraine Continue sumatriptan as needed (2) Diverticulitis: Plan: Abdominal pain: Diverticulitis: Abdominal/pelvic CT suggestive of microperforation and acute diverticulitis as outlined above. No abscess Leukocytosis 12.95; no signs of toxicity; will add a lactate Numerous allergies with antibiotics and she has been on ertapenem-ID has been consulted Gentle IV fluids @ 50ml/Hour Stool sample; including CDiff Routine Tylenol IV PRN We will get to symptomatic management Appreciate surgery input and recommendation-continue with the conservative care for now Has been reasonably tolerating clears We will go very slow on diet Pain is improved and denies any fever and or chills (3) Paroxysmal atrial fibrillation: Plan: Takes Eliquis and Metoprolol No signs of bleeding; did take Eliquis this AM Will hold for now and place on standard Heparin gtt without bolus Heart rate remains stable and will get an EKG Atrial paced rhythm with prolonged AV conduction and rate is 87 (4) Hypertension: (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 Last ECHO 02/2019; EF 65-70%, left ventricle normal size, mild concentric LVH, no wall motion abnormalities No acute cardiac symptoms (6) Hyperlipidemia: (7) GERD (gastroesophageal reflux disease): Plan Disposition: PCP Dr. Huerta CODE STATUS: Full code VTE prophylaxis: On Eliquis; switching to heparin drip tonight Has been on intravenous heparin Admission and Anticipated Discharge Date Admission Date: May 13, 2023 Subjective 05/14/2023 The patient was seen and examined in telemetry unit She has been feeling a little better but still has the pain in the lower abdomen No bloating, no nausea and or vomiting No palpitation, chest pain or shortness of breath 05/15/2023 The patient was seen and examined in medical telemetry unit Chief complaint to have an attack of migraine and was given sumatriptan Feels a little bloated following a small liquid meal No abdominal pain, nausea and or vomiting and no fever and or chills Review of Systems Review of Systems: All systems reviewed and are unremarkable except as noted below Cardiovascular: Additional Comments: No palpitation, chest pain or shortness of breath Gastrointestinal: Abdominal pain in the lower quadrants without any nausea, vomiting or bloating Physical Exam Physical Exam: Sitting at the edge of the bed without any acute distress Constitutional: + ill appearing and average body habitus Eyes: PERRL, conjunctivae normal, anicteric sclerae ENMT: external ear and nose normal, oropharynx normal Neck: trachea midline, no thyromegaly Respiratory: no respiratory distress Auscultation: lungs clear to auscultation bilaterally Cardiovascular: Rate/Rhythm: + irregularly irregular Heart Sounds: normal S1, normal S2 and + murmur Extremities: no edema Gastrointestinal (Abdomen): Inspection/Auscultation: + abdomen distended (Minimally distended) and normal bowel sounds Percussion/Palpation: + abdomen tender (Lower quadrants) Musculoskeletal: No acute arthritis involving any joint Neurologic: normal touch/pain/proprioception and moves all extremities; no focal motor deficits Psychiatric: A+Ox3, euthymic affect Lymphatic: no cervical or axillary lymphadenopathy Results & Data Results & Data Vital Signs (Past 12 Hours) Vital Signs Temp Pulse Pulse Resp BP Pulse Ox O2 Del Method 05/15/23 07:40 36.9 C 75 15 103/36 L 96 Room Air 05/15/23 06:00 67 05/15/23 03:11 36.8 C 76 18 111/77 94 Room Air 05/15/23 00:34 72 Laboratory Results Short CBC 05/15/23 Range/Units 06:22 WBC 5.83 (4.8-10.8) K/ul Hgb 11.7 L (12.0-16.0) g/dl Hct 34.4 L (37.0-47.0) % Plt Count 204 (130-400) K/uL BMP 05/15/23 06:22 Sodium 137 Potassium 3.5 Chloride 106 Carbon Dioxide 23 BUN 13 Creatinine 0.62 Glucose 93 Calcium 8.0 L Liver Function 05/15/23 Range/Units 06:22 Total Bilirubin 0.4 (0.2-1.0) mg/dl AST 11 L (13-39) U/L ALT 7 (7-52) U/L Alkaline Phosphatase 61 (34-104) U/L Albumin 3.6 (3.4-5.0) gm/dl Medications Administered Current Inpatient Medications Acetaminophen (Acetaminophen 325 Mg Tab) 650 mg PO Q4H PRN PRN Reason: Pain or Fever Stop: 06/12/23 09:57 Last Admin: 05/13/23 20:06 Dose: 650 mg Al Hydrox/Mg Hydrox/Simethicone (Aluminum/Magnesium Susp 30 Ml Udc) 15 ml PO Q4H PRN PRN Reason: Dyspepsia Stop: 06/12/23 09:57 Gabapentin (Gabapentin 100 Mg Cap) 100 mg PO TID [facility] Stop: 06/12/23 13:59 Last Admin: 05/15/23 10:58 Dose: 100 mg Acetaminophen (Ofirmev) 1,000 mg in 100 mls @ 400 mls/hr IV Q8H PRN PRN Reason: abdominal pain Stop: 05/16/23 11:59 Last Admin: 05/15/23 11:08 Dose: 400 mls/hr Heparin Sodium/Dextrose (Heparin Sodium/Dextrose) 25,000 units in 500 mls @ 18 mls/hr IV .Q24H [facility]; Protocol Stop: 06/12/23 19:29 Last Titration: 05/15/23 08:18 Dose: 900 units/hr, 18 mls/hr Ertapenem 1,000 mg/ Syringe 10 mls @ 2 mls/min IV Q24H [facility] Stop: 05/18/23 07:59 Last Admin: 05/15/23 07:46 Dose: 2 mls/min Potassium Phosphate 24 mmol/ (Sodium Chloride) 508 mls @ 88 mls/hr IV ONE ONE Stop: 05/15/23 14:16 Last Admin: 05/15/23 09:42 Dose: 88 mls/hr Magnesium Hydroxide (Magnesium Hydroxide Susp 30 Ml Udc) 30 ml PO Q12H PRN PRN Reason: Constipation Stop: 06/12/23 09:57 Metoprolol Tartrate (Metoprolol Tartrate 25 Mg Tab) 25 mg PO HS [facility] Stop: 06/12/23 20:59 Last Admin: 05/14/23 20:44 Dose: 25 mg Metoprolol Tartrate (Metoprolol Tartrate 50 Mg Tab) 50 mg PO [facility] Stop: 06/13/23 08:59 Last Admin: 05/15/23 10:57 Dose: 50 mg Ondansetron HCl (Ondansetron Inj 2 Mg/Ml 2 Ml Vial) 4 mg IV Q6H PRN PRN Reason: Nausea Stop: 06/12/23 09:57 Rosuvastatin Calcium (Rosuvastatin Calcium 5 Mg Tab) 5 mg PO [facility] Stop: 06/12/23 20:59 Last Admin: 05/14/23 20:44 Dose: 5 mg Sumatriptan Succinate (Sumatriptan Succinate 100 Mg Tab) 100 mg PO DAILY PRN PRN Reason: Migraine Headache Stop: 06/14/23 08:47 Last Admin: 05/15/23 09:45 Dose: 100 mg Terazosin HCl (Terazosin Hcl 1 Mg Cap) 1 mg PO [facility] Stop: 06/12/23 20:59 Last Admin: 05/14/23 20:44 Dose: 1 mg (7) GERD (gastroesophageal reflux disease) Esophagitis presence: without esophagitis Qualified Code(s): K21.9 - Gastro- esophageal reflux disease without esophagitis
[2023-05-15 12:19] LABS: Adenovirus F 40/41 PCR Not Detected (NotDetected); Astrovirus PCR Not Detected (NotDetected); Campylobacter PCR Not Detected (NotDetected); Cryptosporidium PCR Not Detected (NotDetected); Cyclospora cayetanensis PCR Not Detected (NotDetected); Entamoeba histolytica PCR Not Detected (NotDetected); Enteroaggregative E.coli(EAEC) Not Detected (NotDetected); Enteropathogenic E.coli (EPEC) Not Detected (NotDetected); Enterotoxigenic E.coli (ETEC) Not Detected (NotDetected); Giardia lamblia PCR Not Detected (NotDetected); Norovirus GI/GII PCR Not Detected (NotDetected); Plesiomonas shigelloides PCR Not Detected (NotDetected); Rotavirus A PCR Not Detected (NotDetected); Salmonella PCR Not Detected (NotDetected); Sapovirus PCR Not Detected (NotDetected); Shiga-like Toxin E.coli (STEC) Not Detected (NotDetected); Shigella/Enteroinvasive E.coli Not Detected (NotDetected); Vibrio cholerae PCR Not Detected (NotDetected); Vibrio species PCR Not Detected (NotDetected); Yersinia enterocolitica PCR Not Detected (NotDetected)
[2023-05-15] MEDS: PANTOprazole 40 MG TAB PO SCH (15:07)
[2023-05-15] MEDS: METOPROLOL TARTRATE 25 MG TAB PO SCH (20:25)
[2023-05-15] MEDS: TERAZOSIN HCL 1 MG CAP PO SCH (20:26)
[2023-05-15] MEDS: ROSUVASTATIN CALCIUM 5 MG TAB PO SCH (20:26)
[2023-05-16] MEDS: HEPARIN SODIUM/DEXTROSE 25,000 UNITS/500 ML BAG IV SCH ×2 (01:41→20:34)
[2023-05-16] MEDS: SUMAtriptan succinate 100 MG TAB PO PRN (01:57)
[2023-05-16 06:41] LABS: Basophils # (auto) 0.04 K/uL (0-0.2); Basophils % (auto) 0.7 %; Eosinophils # (auto) 0.13 K/uL (0-0.50); Eosinophils % (auto) 2.4 %; Hematocrit (blood only) 38.2 % (37.0-47.0); Immature Granulocytes # (auto) 0.05 K/uL (0.01-0.20); Immature Granulocytes % (auto) 0.9 %; Lymphocytes # (auto) 1.43 K/uL (1.2-3.4); Mean Corpuscular Hemoglobin 30.5 pg (25.0-34.0); Mean Corpuscular Volume 89.7 fL (80.0-100.0); Mean Platelet Volume 9.4 fL (9.4-12.4); Monocytes # (auto) 0.33 K/uL (0.11-0.59); Neutrophils # (auto) 3.51 K/uL (1.40-6.50); Platelet Count 237 K/uL (130-400); RDW Coefficient of Variation 12.4 % (11.5-14.5); Red Blood Count 4.26 M/uL (4.20-5.40); White Blood Count 5.49 K/ul (4.8-10.8)
[2023-05-16 07:05] LABS: BUN Creatinine Ratio 15.2 (10-20); Calcium 8.5 mg/dl (8.6-10.3); Creatinine Clr Calc Pharmacy 45.3 ml/min; Est GFR (African American) 92.1 ml/min; Est GFR (Non-African American) 79.4 ml/min; Magnesium 2.3 mg/dl (1.7-2.4); Phosphorus 2.1 mg/dl (2.5-4.9); Potassium 3.7 mmol/L (3.5-5.1)
[2023-05-16 07:27] LABS: Partial Thromboplastin Time 56.3 Seconds (21.0-31.0)
[2023-05-16] MEDS: PANTOprazole 40 MG TAB PO SCH (07:44)
[2023-05-16] MEDS: GABAPENTIN 100 MG CAP PO SCH ×3 (07:44→20:00)
[2023-05-16] MEDS: METOPROLOL TARTRATE 50 MG TAB PO SCH (07:44)
--- NOTE | 2023-05-16 07:44 | Surgery Progress Note ---
Date of Service May 16, 2023 Assessment & Plan (1) Diverticulitis: Plan: Patient feeling better than admission. this AM denies n/v/fevers and reports abdominal pain improved. having + flatus/BMs WBC 5.4. vital signs are stable and pt afebrile Abd soft, mild discomfort to deep palpation in the LLQ Will trial fulls and see how she fairs She should stay on IV abx at least one more day given microperf on imaging Possible d/c dain on po abx pending ongoing progress Will need f/u with [facility]/colorectal upon dispo Admission and Anticipated Discharge Date Admission Date: May 13, 2023 Subjective Patient reports feeling well. Tolerating clears, no nausea/vomiting. Passing flatus and BMs. Pain much improved from admission. Physical Exam Physical Exam: awake/alert, no distress Respiratory: normal respiratory effort Gastrointestinal (Abdomen): Inspection/Auscultation: abdomen not distended Percussion/Palpation: + abdomen tender (mild discomfort to deep palpation in the LLQ) and abdomen soft Results & Data Vital Signs (Past 12 Hours) Vital Signs Temp Pulse Pulse Resp BP Pulse Ox O2 Del Method 05/16/23 07:12 36.9 C 66 16 164/87 H 96 Room Air 05/16/23 04:33 36.7 C 60 16 155/71 H 96 Room Air 05/15/23 23:48 65 05/15/23 23:33 37.0 C 60 18 102/59 L 92 Room Air 05/15/23 20:09 36.6 C 69 20 158/82 H 93 Room Air PG Care Time/CCT Total # of Minutes Spent Total Time Spent with Patient: Total time spent is greater than 50% in coordination of care (as documented) at patient's floor/unit and/or counseling patient: Coding Level of Care Code 46942 SUB INP/OBS CARE Diagnoses Diverticulitis K57.92
[2023-05-16] MEDS: ERTAPENEM SODIUM 1,000 MG in SYRINGE 0 ML IV SCH (07:47)
[2023-05-16] MEDS: ACETAMINOPHEN 325 MG TAB PO PRN (11:26)
--- NOTE | 2023-05-16 13:05 | Hospitalist Progress Note ---
Date of Service May 16, 2023 Assessment & Plan (1) Abdominal pain: Plan: 88 year old that presents with LLQ abdominal pain. Abdominal and pelvic CT suggestive of microperforation and acute diverticulitis. bowel rest, pain control with PRN IV Tylenol, iv Ertapenem. Check stool cultures and FOBT with gentle fluid hydration and general sugery consultation. Patient takes Eliquis for pAF; took AM dose at home; will hold tonight and start Heparin gtt (no bolus). Has tachy michael syndrome s/p Pacer and follows [facility] No more abdominal pain and has been tolerating advance diet Migraine Continue sumatriptan as needed No more attack of migraine (2) Diverticulitis: Plan: Abdominal pain: Diverticulitis: Abdominal/pelvic CT suggestive of microperforation and acute diverticulitis as outlined above. No abscess Leukocytosis 12.95; no signs of toxicity; will add a lactate Numerous allergies with antibiotics and she has been on ertapenem-ID has been consulted Gentle IV fluids @ 50ml/Hour Stool sample; including CDiff Routine Tylenol IV PRN We will get to symptomatic management Appreciate surgery input and recommendation-continue with the conservative care for now Has been reasonably tolerating clears We will go very slow on diet Pain is improved and denies any fever and or chills Awaiting ID evaluation for recommendation of antibiotic (3) Paroxysmal atrial fibrillation: Plan: Takes Eliquis and Metoprolol No signs of bleeding; did take Eliquis this AM Will hold for now and place on standard Heparin gtt without bolus Heart rate remains stable and will get an EKG Atrial paced rhythm with prolonged AV conduction and rate is 87 (4) Hypertension: (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 Huerta CODE STATUS: Full code VTE prophylaxis: On Eliquis; switching to heparin drip tonight Has been on intravenous heparin Will change to oral Eliquis on discharge Admission and Anticipated Discharge Date Admission Date: May 13, 2023 Subjective 05/14/2023 The patient was seen and examined in telemetry unit She has been feeling a little better but still has the pain in the lower abdomen No bloating, no nausea and or vomiting No palpitation, chest pain or shortness of breath 05/15/2023 The patient was seen and examined in medical telemetry unit Chief complaint to have an attack of migraine and was given sumatriptan Feels a little bloated following a small liquid meal No abdominal pain, nausea and or vomiting and no fever and or chills 05/16/2023 The patient was seen and examined in medical telemetry unit She has been feeling much better and has had a small diarrhea with black stool We will send stool for Hemoccult Denies any other symptoms and awaiting ID input and recommendation Review of Systems Review of Systems: All systems reviewed and are unremarkable except as noted below Cardiovascular: Additional Comments: No palpitation, chest pain or shortness of breath Gastrointestinal: Abdominal pain in the lower quadrants without any nausea, vomiting or bloating Physical Exam Physical Exam: Sitting at the edge of the bed without any acute distress Constitutional: + ill appearing and average body habitus Eyes: PERRL, conjunctivae normal, anicteric sclerae ENMT: external ear and nose normal, oropharynx normal Neck: trachea midline, no thyromegaly Respiratory: no respiratory distress Auscultation: lungs clear to auscultation bilaterally Cardiovascular: Rate/Rhythm: + irregularly irregular Heart Sounds: normal S1, normal S2 and + murmur Extremities: no edema Gastrointestinal (Abdomen): Inspection/Auscultation: + abdomen distended (Minimally distended) and normal bowel sounds Percussion/Palpation: + abdomen tender (Lower quadrants) Musculoskeletal: No acute arthritis involving any joint Neurologic: normal touch/pain/proprioception and moves all extremities; no focal motor deficits Psychiatric: A+Ox3, euthymic affect Lymphatic: no cervical or axillary lymphadenopathy Results & Data Results & Data Vital Signs (Past 12 Hours) Vital Signs Temp Pulse Pulse Resp BP Pulse Ox O2 Del Method 05/15/23 07:40 36.9 C 75 15 103/36 L 96 Room Air 05/15/23 06:00 67 05/15/23 03:11 36.8 C 76 18 111/77 94 Room Air 05/15/23 00:34 72 Laboratory Results Short CBC 05/16/23 Range/Units 06:14 WBC 5.49 (4.8-10.8) K/ul Hgb 13.0 (12.0-16.0) g/dl Hct 38.2 (37.0-47.0) % Plt Count 237 (130-400) K/uL BMP 05/16/23 06:14 Sodium 139 Potassium 3.7 Chloride 107 Carbon Dioxide 24 BUN 10 Creatinine 0.66 Glucose 102 H Calcium 8.5 L Medications Administered Current Inpatient Medications Acetaminophen (Acetaminophen 325 Mg Tab) 650 mg PO Q4H PRN PRN Reason: Pain or Fever Stop: 06/12/23 09:57 Last Admin: 05/16/23 11:26 Dose: 650 mg Al Hydrox/Mg Hydrox/Simethicone (Aluminum/Magnesium Susp 30 Ml Udc) 15 ml PO Q4H PRN PRN Reason: Dyspepsia Stop: 06/12/23 09:57 Last Admin: 05/15/23 20:32 Dose: 15 ml Gabapentin (Gabapentin 100 Mg Cap) 100 mg PO TID [facility] Stop: 06/12/23 13:59 Last Admin: 05/16/23 07:44 Dose: 100 mg Heparin Sodium/Dextrose (Heparin Sodium/Dextrose) 25,000 units in 500 mls @ 18 mls/hr IV .Q24H [facility]; Protocol Stop: 06/12/23 19:29 Last Titration: 05/16/23 07:34 Dose: 900 units/hr, 18 mls/hr Ertapenem 1,000 mg/ Syringe 10 mls @ 2 mls/min IV Q24H [facility] Stop: 05/18/23 07:59 Last Admin: 05/16/23 07:47 Dose: 2 mls/min Magnesium Hydroxide (Magnesium Hydroxide Susp 30 Ml Udc) 30 ml PO Q12H PRN PRN Reason: Constipation Stop: 06/12/23 09:57 Metoprolol Tartrate (Metoprolol Tartrate 25 Mg Tab) 25 mg PO HS [facility] Stop: 06/12/23 20:59 Last Admin: 05/15/23 20:25 Dose: 25 mg Metoprolol Tartrate (Metoprolol Tartrate 50 Mg Tab) 50 mg PO QAM [facility] Stop: 06/13/23 08:59 Last Admin: 05/16/23 07:44 Dose: 50 mg Ondansetron HCl (Ondansetron Inj 2 Mg/Ml 2 Ml Vial) 4 mg IV Q6H PRN PRN Reason: Nausea Stop: 06/12/23 09:57 Pantoprazole Sodium (Pantoprazole 40 Mg Tab) 40 mg PO QAM [facility] Stop: 06/14/23 14:14 Last Admin: 05/16/23 07:44 Dose: 40 mg Rosuvastatin Calcium (Rosuvastatin Calcium 5 Mg Tab) 5 mg PO HS [facility] Stop: 06/12/23 20:59 Last Admin: 05/15/23 20:26 Dose: 5 mg Sumatriptan Succinate (Sumatriptan Succinate 100 Mg Tab) 100 mg PO DAILY PRN PRN Reason: Migraine Headache Stop: 06/14/23 08:47 Last Admin: 05/16/23 01:57 Dose: 100 mg Terazosin HCl (Terazosin Hcl 1 Mg Cap) 1 mg PO HS [facility] Stop: 06/12/23 20:59 Last Admin: 05/15/23 20:26 Dose: 1 mg (7) GERD (gastroesophageal reflux disease) Esophagitis presence: without esophagitis Qualified Code(s): K21.9 - Gastro- esophageal reflux disease without esophagitis
[2023-05-16] MEDS ORDERED: HYDROmorphone INJ 0.5 MG/0.5 ML SYR IV STA (16:42)
[2023-05-16] MEDS: ROSUVASTATIN CALCIUM 5 MG TAB PO SCH (20:01)
[2023-05-16] MEDS: METOPROLOL TARTRATE 25 MG TAB PO SCH (20:01)
[2023-05-16] MEDS: TERAZOSIN HCL 1 MG CAP PO SCH (20:02)
[2023-05-17] MEDS: ACETAMINOPHEN 325 MG TAB PO PRN (02:53)
[2023-05-17] MEDS: HEPARIN SODIUM/DEXTROSE 25,000 UNITS/500 ML BAG IV SCH (03:45)
[2023-05-17] MEDS: SUMAtriptan succinate 100 MG TAB PO PRN (03:50)
[2023-05-17 07:29] LABS: Basophils # (auto) 0.03 K/uL (0-0.2); Basophils % (auto) 0.6 %; Eosinophils % (auto) 1.9 %; Hematocrit (blood only) 37.5 % (37.0-47.0); Hemoglobin 12.8 g/dl (12.0-16.0); Immature Granulocytes # (auto) 0.06 K/uL (0.01-0.20); Immature Granulocytes % (auto) 1.1 %; Lymphocytes # (auto) 1.68 K/uL (1.2-3.4); Lymphocytes % (auto) 31.3 %; Mean Corpuscular Hemoglobin 30.5 pg (25.0-34.0); Mean Corpuscular Hgb Conc 34.1 g/dL (32.0-36.0); Mean Corpuscular Volume 89.5 fL (80.0-100.0); Mean Platelet Volume 9.6 fL (9.4-12.4); Monocytes # (auto) 0.31 K/uL (0.11-0.59); Monocytes % (auto) 5.8 %; Neutrophils # (auto) 3.19 K/uL (1.40-6.50); Neutrophils % (auto) 59.3 %; Platelet Count 228 K/uL (130-400); RDW Coefficient of Variation 12.5 % (11.5-14.5); RDW Standard Deviation 40.9 fL (36.4-46.3); Red Blood Count 4.19 M/uL (4.20-5.40); White Blood Count 5.37 K/ul (4.8-10.8)
[2023-05-17] MEDS: METOPROLOL TARTRATE 50 MG TAB PO SCH (08:02)
[2023-05-17] MEDS: PANTOprazole 40 MG TAB PO SCH (08:02)
[2023-05-17] MEDS: GABAPENTIN 100 MG CAP PO SCH (08:02)
[2023-05-17] MEDS: ERTAPENEM SODIUM 1,000 MG in SYRINGE 0 ML IV SCH (08:05)
[2023-05-17 08:25] LABS: Partial Thromboplastin Time 57.2 Seconds (21.0-31.0)
--- NOTE | 2023-05-17 11:39 | Hospitalist Progress Note ---
Date of Service May 17, 2023 Assessment & Plan (1) Abdominal pain: Plan: 88 year old that presents with LLQ abdominal pain. Abdominal and pelvic CT suggestive of microperforation and acute diverticulitis. bowel rest, pain control with PRN IV Tylenol, iv Ertapenem. Check stool cultures and FOBT with gentle fluid hydration and general sugery consultation. Patient takes Eliquis for pAF; took AM dose at home; will hold tonight and start Heparin gtt (no bolus). Has tachy michael syndrome s/p Pacer and [facility] No more abdominal pain and has been tolerating advance diet Migraine Continue sumatriptan as needed No more attack of migraine (2) Diverticulitis: Plan: Abdominal pain: Diverticulitis: Abdominal/pelvic CT suggestive of microperforation and acute diverticulitis as outlined above. No abscess Leukocytosis 12.95; no signs of toxicity; will add a lactate Numerous allergies with antibiotics and she has been on ertapenem-ID has been consulted Gentle IV fluids @ 50ml/Hour Stool sample; including CDiff Routine Tylenol IV PRN We will get to symptomatic management Appreciate surgery input and recommendation-continue with the conservative care for now Has been reasonably tolerating clears We will go very slow on diet Pain is improved and denies any fever and or chills Appreciate ID input and recommendation-she will get Moxicillin 400 milligram twice daily for [address] scan to evaluate diverticulitis. If no complete resolution then she will need another 14 days of same antibiotic. 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 Huerta CODE STATUS: Full code VTE prophylaxis: On Eliquis; switching to heparin drip tonemanuel Has been on intravenous heparin Will change to oral Eliquis on discharge Admission and Anticipated Discharge Date Admission Date: May 13, 2023 Subjective 05/14/2023 The patient was seen and examined in telemetry unit She has been feeling a little better but still has the pain in the lower abdomen No bloating, no nausea and or vomiting No palpitation, chest pain or shortness of breath 05/15/2023 The patient was seen and examined in medical telemetry unit Chief complaint to have an attack of migraine and was given sumatriptan Feels a little bloated following a small liquid meal No abdominal pain, nausea and or vomiting and no fever and or chills 05/16/2023 The patient was seen and examined in medical telemetry unit She has been feeling much better and has had a small diarrhea with black stool We will send stool for Hemoccult Denies any other symptoms and awaiting ID input and recommendation 05/17/2023 The patient was seen and examined in medical telemetry unit She has been feeling much better, denies any abdominal pain and no more diarrhea No fever and no chills Review of Systems Review of Systems: All systems reviewed and are unremarkable except as noted below Cardiovascular: Additional Comments: No palpitation, chest pain or shortness of breath Gastrointestinal: Abdominal pain in the lower quadrants without any nausea, vomiting or bloating Physical Exam Physical Exam: Sitting at the edge of the bed without any acute distress Constitutional: average body habitus; not ill appearing Eyes: PERRL, conjunctivae normal, anicteric sclerae ENMT: external ear and nose normal, oropharynx normal Neck: trachea midline, no thyromegaly Respiratory: no respiratory distress Auscultation: lungs clear to auscultation bilaterally Cardiovascular: Rate/Rhythm: + irregularly irregular Heart Sounds: normal S1, normal S2 and + murmur Extremities: no edema Gastrointestinal (Abdomen): Inspection/Auscultation: normal bowel sounds; abdomen not distended (Minimally distended) Percussion/Palpation: abdomen nontender (Lower quadrants) Neurologic: normal touch/pain/proprioception and moves all extremities; no focal motor deficits Psychiatric: A+Ox3, euthymic affect Lymphatic: no cervical or axillary lymphadenopathy Results & Data Results & Data Vital Signs (Past 12 Hours) Vital Signs Temp Pulse Pulse Resp BP Pulse Ox O2 Del Method 05/17/23 11:00 36.4 C L 65 18 139/76 93 Room Air 05/17/23 07:24 60 05/17/23 06:01 36.3 C L 67 16 160/84 H 96 Room Air 05/17/23 03:34 36.6 C 80 18 150/72 H 95 Room Air 05/17/23 01:00 97 H Laboratory Results Short CBC 05/17/23 Range/Units 07:00 WBC 5.37 (4.8-10.8) K/ul Hgb 12.8 (12.0-16.0) g/dl Hct 37.5 (37.0-47.0) % Plt Count 228 (130-400) K/uL Medications Administered Current Inpatient Medications Acetaminophen (Acetaminophen 325 Mg Tab) 650 mg PO Q4H PRN PRN Reason: Pain or Fever Stop: 06/12/23 09:57 Last Admin: 05/17/23 02:53 Dose: 650 mg Al Hydrox/Mg Hydrox/Simethicone (Aluminum/Magnesium Susp 30 Ml Udc) 15 ml PO Q4H PRN PRN Reason: Dyspepsia Stop: 06/12/23 09:57 Last Admin: 05/15/23 20:32 Dose: 15 ml Gabapentin (Gabapentin 100 Mg Cap) 100 mg PO TID [facility] Stop: 06/12/23 13:59 Last Admin: 05/17/23 08:02 Dose: 100 mg Heparin Sodium/Dextrose (Heparin Sodium/Dextrose) 25,000 units in 500 mls @ 18 mls/hr IV .Q24H [facility]; Protocol Stop: 06/12/23 19:29 Last Titration: 05/17/23 08:51 Dose: 900 units/hr, 18 mls/hr Ertapenem 1,000 mg/ Syringe 10 mls @ 2 mls/min IV Q24H [facility] Stop: 05/18/23 07:59 Last Admin: 05/17/23 08:05 Dose: 2 mls/min Magnesium Hydroxide (Magnesium Hydroxide Susp 30 Ml Udc) 30 ml PO Q12H PRN PRN Reason: Constipation Stop: 06/12/23 09:57 Metoprolol Tartrate (Metoprolol Tartrate 25 Mg Tab) 25 mg PO HS [facility] Stop: 06/12/23 20:59 Last Admin: 05/16/23 20:01 Dose: 25 mg Metoprolol Tartrate (Metoprolol Tartrate 50 Mg Tab) [facility] Stop: 06/13/23 08:59 Last Admin: 05/17/23 08:02 Dose: 50 mg Ondansetron HCl (Ondansetron Inj 2 Mg/Ml 2 Ml Vial) 4 mg IV Q6H PRN PRN Reason: Nausea Stop: 06/12/23 09:57 Last Admin: 05/16/23 20:00 Dose: 4 mg Pantoprazole Sodium (Pantoprazole 40 Mg Tab) [facility] Stop: 06/14/23 14:14 Last Admin: 05/17/23 08:02 Dose: 40 mg Rosuvastatin Calcium (Rosuvastatin Calcium 5 Mg Tab) 5 mg PO [facility] Stop: 06/12/23 20:59 Last Admin: 05/16/23 20:01 Dose: 5 mg Sumatriptan Succinate (Sumatriptan Succinate 100 Mg Tab) 100 mg PO DAILY PRN PRN Reason: Migraine Headache Stop: 06/14/23 08:47 Last Admin: 05/17/23 03:50 Dose: 100 mg Terazosin HCl (Terazosin Hcl 1 Mg Cap) 1 mg PO [facility] Stop: 06/12/23 20:59 Last Admin: 05/16/23 20:02 Dose: 1 mg (7) GERD (gastroesophageal reflux disease) Esophagitis presence: without esophagitis Qualified Code(s): K21.9 - Gastro- esophageal reflux disease without esophagitis
--- NOTE | 2023-05-17 12:38 | Surgery Progress Note ---
Date of Service May 17, 2023 Assessment & Plan (1) Diverticulitis: Plan: Patient progressing well and will likely for discharge this afternoon Continue antibiotics likely for at least 7 to 10 days possibly longer depending on ID suggestion Patient should likely have a repeat CAT scan within 1 to 2 weeks She is to follow-up with her primary care doctor She may need follow-up with colorectal surgery [facility] Kena Per although it is doubtful they would consider operating on her if she does well Admission and Anticipated Discharge Date Admission Date: May 13, 2023 Results & Data Vital Signs (Past 12 Hours) Vital Signs Temp Pulse Pulse Resp BP Pulse Ox O2 Del Method 05/17/23 11:00 36.4 C L 65 18 139/76 93 Room Air 05/17/23 07:24 60 05/17/23 06:01 36.3 C L 67 16 160/84 H 96 Room Air 05/17/23 03:34 36.6 C 80 18 150/72 H 95 Room Air 05/17/23 01:00 97 H PG Care Time/CCT Total # of Minutes Spent Total Time Spent with Patient: Total time spent is greater than 50% in coordination of care (as documented) at patient's floor/unit and/or counseling patient: Coding Level of Care Code None Diagnoses Diverticulitis K57.92
--- NOTE | 2023-05-17 16:53 | Discharge Summary ---
Date of Service May 17, 2023 Admission HPI Per Admitting Provider Ms. Xiong is an 88 year old female that presented to the [facility] today with LLQ abdominal pain that has been occurring for the past two days and describes it as sharp pain. She describes overall generalized pain; currently 4/10. When she lays flat, pain subsides. She felt like she needed to go to the bathroom, but was unable to produce anything. She denies any BRBPR, but does report one small encounter of a very small amount of blood. She does report rectal mucus.. She reports that the pain is gradually getting worse. She reports that it worsens with eating. She did not eat anything today. She did take her a.m. dose of Eliquis. 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 An abdominal and pelvic CT was performed with results indicating abdominal wall thickening with moderate associated inflammation of the distal sigmoid colon and rectum. Inflamed diverticulum of the distal sigmoid colon with suspected single locule of extraluminal gas suggestive of microperforation. Although longer rectal involvement than expected, the findings favor acute diverticulitis. No abscess noted on scan. She has had a recent inpatient hospitalization from 02/19 to 02/20 for which she presented with right flank pain status post right ureteroscopy and lithotripsy status post stent and has been being followed by urology as an outpatient. Additional past medical history includes paroxysmal A-fi(on Eliquis), tachybradycardia syndrome status post pacemaker, HTN, HLD, GERD, CKD stage III, history of gastroparesis and kidney stones, and degenerative disc disease. Patient denies tobacco, alcohol or recreational drug use. Patient has a living will and is to remain full code. Pt denies headache, dizziness, orthopnea, shortness of breath, visual or auditory changes, chest pain, palpitations, loss of bowel or bladder function, nausea, vomiting, BRBPR, urinary changes, recent falls or trauma. Patient will be admitted for further evaluation and management. Please see A/P for further details. Admission Exam Per Admitting Provider Vitals signs as noted above General Appearance:Thin, no apparent distress Head: normocephalic, Atraumatic Eyes: normal inspection, EOMI Neck: supple, Trachea midline Respiratory/Chest: Normal breath sounds, CTA, No accessory muscle use Cardiovascular: S1, S2, No murmur, +Pacer Abdomen/GI:Soft, LLQ tender, Bowel sounds present Extremities/Musculoskeletal:normal inspection, no edema Neurologic/Psych:AAOX3, grossly no focal neurological deficits Skin: normal color, warm Principal Diagnosis Acute diverticulitis with microperforation, tachybradycardia syndrome status post PPM Discharge Exam Sitting at the edge of the bed without any acute distress Constitutional average body habitus; not ill appearing Eyes PERRL, conjunctivae normal, anicteric sclerae ENMT external ear and nose normal, oropharynx normal Neck trachea midline, no thyromegaly Respiratory no respiratory distress Auscultation: lungs clear to auscultation bilaterally Cardiovascular Rate/Rhythm: + irregularly irregular Heart Sounds: normal S1, normal S2 and + murmur Extremities: no edema Gastrointestinal (Abdomen) Inspection/Auscultation: normal bowel sounds; abdomen not distended (Minimally distended) Percussion/Palpation: abdomen nontender (Lower quadrants) Neurologic normal touch/pain/proprioception and moves all extremities; no focal motor deficits Psychiatric A+Ox3, euthymic affect Lymphatic no cervical or axillary lymphadenopathy Discharge Data Allergies Allergy/AdvReac Type Severity Reaction Status Date / Time sulfamethoxazole Allergy Intermediate RASH Verified 05/13/23 08:59 trimethoprim Allergy Intermediate RASH Verified 05/13/23 08:59 Penicillins Allergy Mild Rash Verified 05/13/23 08:59 propoxyphene Allergy Mild Unknown Verified 05/13/23 08:59 Sulfa (Sulfonamide Allergy Mild Rash Verified 05/13/23 08:59 Antibiotics) venlafaxine [From Effexor] Allergy Mild Hives/Itchy Verified 05/13/23 08:59 /Rash amlodipine AdvReac Intermediate LEGS AND Verified 05/13/23 08:59 FEET GET TIGHT atorvastatin AdvReac Intermediate Inc Lft Verified 05/13/23 08:59 after Cholecystectomy enalapril AdvReac Intermediate tightness Verified 05/13/23 08:59 in ankles erythromycin base AdvReac Intermediate Vomiting Verified 05/13/23 08:59 fentanyl AdvReac Intermediate SEVERE Verified 05/13/23 08:59 N&V;DIZZY ondansetron [From Zofran] AdvReac Intermediate Nausea Verified 05/13/23 08:59 topiramate [From Topamax] AdvReac Intermediate "FINGERS Verified 05/13/23 08:59 NUMB" tramadol [From Ultram] AdvReac Intermediate Vomiting Verified 05/13/23 08:59 clindamycin AdvReac Mild Nausea Verified 05/13/23 08:59 codeine AdvReac Mild SICK TO Verified 05/13/23 08:59 STOMACH Quinolones AdvReac Mild N&V Verified 05/13/23 08:59 metronidazole AdvReac Unknown Unknown Verified 05/13/23 11:20 Consultations 05/13/23 09:47 ED Decision to Admit Stat 05/13/23 10:25 Consult General Surgery Routine 05/13/23 13:44 Consult Infectious Diseases Routine Ordered Studies 05/13/23 08:56 CT abd pelvis IV con only Stat Hospital Course (1) Abdominal pain: 88 year old that presents with LLQ abdominal pain. Abdominal and pelvic CT suggestive of microperforation and acute diverticulitis. bowel rest, pain control with PRN IV Tylenol, iv Ertapenem. Check stool cultures and FOBT with gentle fluid hydration and general sugery consultation. Patient takes Eliquis for pAF; took AM dose at home; will hold tonight and start Heparin gtt (no bolus). Has tachy michael syndrome s/p Pacer and follows [facility] No more abdominal pain and has been tolerating advance diet Migraine Continue sumatriptan as needed No more attack of migraine (2) Diverticulitis: Abdominal pain: Diverticulitis: Abdominal/pelvic CT suggestive of microperforation and acute diverticulitis as outlined above. No abscess Leukocytosis 12.95; no signs of toxicity; will add a lactate Numerous allergies with antibiotics and she has been on ertapenem-ID has been consulted Gentle IV fluids @ 50ml/Hour Stool sample; including CDiff Routine Tylenol IV PRN We will get to symptomatic management Appreciate surgery input and recommendation-continue with the conservative care for now Has been reasonably tolerating clears We will go very slow on diet Pain is improved and denies any fever and or chills Appreciate ID input and recommendation-she will get Moxicillin 400 milligram twice daily for [address] scan to evaluate diverticulitis. If no complete resolution then she will need another 14 days of same antibiotic. She will be discharged home this afternoon and she is happy about it (3) Paroxysmal atrial fibrillation: Takes Eliquis and Metoprolol No signs of bleeding; did take Eliquis this AM Will hold for now and place on standard Heparin gtt without bolus Heart rate remains stable and will get an EKG Atrial paced rhythm with prolonged AV conduction and rate is [address] on Eliquis on discharge as she was taking as an outpatient (4) Hypertension: (5) Tachy-michael syndrome: Tachybradycardia syndrome: Status post pacemaker No signs of malfunction Follows with [facility] Last ECHO 02/2019; EF 65-70%, left ventricle normal size, mild concentric LVH, no wall motion abnormalities No acute cardiac symptoms (6) Hyperlipidemia: (7) GERD (gastroesophageal reflux disease): Plan Disposition: PCP Dr. Huerta CODE STATUS: Full code VTE prophylaxis: On Eliquis; switching to heparin drip tonemanuel Has been on intravenous heparin Will change to oral Eliquis on discharge Total Time Total Time Spent Total Time Spent (In Minutes): 35 minutes Discharge Plan Discharge Items Patient Disposition: Home - Self-Care Reason For Visit: ABDOMINAL PAIN Discharge Diagnosis: Acute diverticulitis with microperforation, tachybradycardia syndrome status post PPM Condition on Discharge: Good Activity: Resume your previous activity Non-emergency contact: Primary Care Provider Call non-emergency contact if: you have any medication questions and your symptoms worsen Follow-up/Referrals: Preston Villagran MD [Primary Care Provider] - (Date & Time 05/24/2023 11:00 AM Provider Reggie Concepcion PA-C Department General Internal Medicine [facility] ) Diet: Heart Healthy and Low Fiber Addtl Attending Provider Instructions: Please finish the course of antibiotic Please have a repeat CT scan through your PCP in about 10 to 14 days Please get an appointment from your PCP to see a colorectal surgeon as an outpatient Try [id number] probiotics as long as you are on antibiotic Pending Studies at Discharge: No Stand-Alone Forms: My [employer], Smoking Cessation Medications and DC Order Prescriptions: New moxifloxacin 400 mg tablet 400 mg PO BID 14 Days Qty: 28 0RF Continued rosuvastatin [Crestor] 5 mg tablet 5 mg PO HS sumatriptan succinate [Imitrex] 100 mg tablet 100 mg PO DAILY PRN (Reason: Migraine Headache) Prolia 60 mg/mL Syringe 1 dose SUBCUT Q180D Rx Instructions: takes in and april terazosin 1 mg capsule 1 mg PO HS Eliquis 2.5 mg Tablet 2.5 mg PO BID gabapentin 100 mg Capsule 100 mg PO TID dicyclomine 10 mg capsule 10 mg PO QID PRN (Reason: ABD PAIN) metoprolol tartrate 25 mg tablet 25 mg PO HS metoprolol tartrate 25 mg tablet 50 mg PO QAM acetaminophen [Tylenol] 325 mg Tablet 650 mg PO Q6 PRN (Reason: Pain) omeprazole 40 mg Capsule,Delayed Release(Dr/Ec) 40 mg PO DAILYBB cholecalciferol (vitamin D3) [Vitamin D3] 25 mcg (1,000 unit) Capsule 50 mcg PO BID Discharge Orders: Discharge Order (Routine); Ordered 05/17/23 Ordered By: Gracie Kang/Other Patient Handouts: Low-Fiber Diet Admission Data Admit Date/Time: 05/13/23 09:58 Attending Provider: Gracie Archer Admit Provider: Carlitos Blackburn Primary Care Provider: Preston Villagran Other Providers: Carlitos Blackburn ; Isac Devine ; Manish Loomis ; Joshua Ewing ; Aashish Mehta I. ; Jw Schrader II ; Su De Jesus ; Iraj Burgos ; Isac Mishra ; Saadia Villa Other Interventions: Discharge Summary Assessment (RN) Last Done: 05/17/23 12:53
== END 2023-05-17 13:45 | disposition home or self-care (01) | DRG 392 ==
LOC: ED 07:46 → 2S 09:58 → SUATTDRO 09:58 → 2S 12:38 → 2N 05-14 13:05

== ENCOUNTER 2024-10-13 19:45 | Inpatient (IN) ==
[2024-10-13] MEDS: SODIUM CHLORIDE 0.9% 500 ML IV SCH (20:21)
[2024-10-13] MEDS: METOPROLOL TARTRATE 1 MG/ML VIAL IV STA ×2 (20:29→21:27)
[2024-10-13 20:33] LABS: Basophils # (auto) 0.05 K/uL (0.00-0.20); Basophils % (auto) 0.6 %; Eosinophils # (auto) 0.07 K/uL (0.00-0.50); Eosinophils % (auto) 0.9 %; Hemoglobin 14.4 g/dl (12.0-16.0); Immature Granulocytes # (auto) 0.05 K/uL (0.01-0.20); Immature Granulocytes % (auto) 0.6 %; Lymphocytes # (auto) 2.27 K/uL (1.20-3.40); Lymphocytes % (auto) 29.1 %; Mean Corpuscular Hemoglobin 30.9 pg (25.0-34.0); Mean Corpuscular Hgb Conc 32.7 g/dL (32.0-36.0); Mean Corpuscular Volume 94.4 fL (80.0-100.0); Mean Platelet Volume 9.5 fL (9.4-12.4); Monocytes # (auto) 0.47 K/uL (0.11-0.59); Neutrophils % (auto) 62.8 %; Platelet Count 249 K/uL (130-400); RDW Coefficient of Variation 12.6 % (11.5-14.5); RDW Standard Deviation 43.5 fL (36.4-46.3); Red Blood Count 4.66 M/uL (4.20-5.40); White Blood Count 7.81 K/ul (4.8-10.8)
[2024-10-13 20:50] LABS: Albumin Globulin Ratio 1.9 (0.9-2); Albumin Level 4.8 gm/dl (3.4-5.0); BUN Creatinine Ratio 28.1 (10-20); Bilirubin,Total 0.3 mg/dl (0.2-1.0); Calcium 10.3 mg/dl (8.6-10.3); Creatinine Clr Calc Pharmacy 36.1 ml/min; Globulin 2.5 gm/dl (2.5-4.0); Potassium 3.9 mmol/L (3.5-5.1); Total Protein 7.3 gm/dl (6.0-8.3)
[2024-10-13 20:56] LABS: Troponin I High Sensitivity 13.9 pg/ml (0-14)
[2024-10-13] MEDS: MAGNESIUM SULFATE / D5W 1 GM/100 ML BAG IV STA (21:34)
--- NOTE | 2024-10-13 21:59 | Emergency Department Note ---
Impression & Plan Palpitations, Atrial fibrillation with rapid ventricular response, Chest pain ED Provider Note ED Provider Note NAME: ISMAEL MONTANA AGE:89 SEX: Female : 1935 ARRIVES VIA: Private vehicle INFORMANT: Patient ED PROVIDER(s): Soo Coffey DO CHIEF COMPLAINT: Palpitations HPI: This is an 89-year-old female who presents emerged part due to concern for palpitations. She states that began around 4 PM when she was at a concert. She states she thought if she sat down or went home and rested it would ease and go away. She states she tried both of those things and that did not improve. She states she began to develop some pain on the right side of her neck additionally. She states she felt slightly short of breath and lightheaded when she was walking however that improved when she would sit down. She denies any recent illness, fevers or chills. No cough or cold symptoms. She denies any recent leg swelling. She states she does follow with Iraj Arevalo PA-C of cardiology and does have a pacemaker. She states the pacemaker was put in because her heart rate was too low. She states she does take a blood thinner but denies any history of atrial fibrillation or blood clots. PAST MEDICAL HISTORY:See Below PAST SURGICAL HISTORY:See Below FAMILY HISTORY:See Below SOCIAL HISTORY:See Below HOME MEDICATIONS:See Below ALLERGIES:See Below VITALS:See Below PHYSICAL EXAMINATION: GENERAL: alert, well appearing, well nourished, no distress, non-toxic EYE EXAM: normal conjunctiva, PERRL and EOM's grossly intact OROPHARYNX: no exudate, no erythema, lips, buccal mucosa, and tongue normal and mucous membranes are moist NECK: supple, no nuchal rigidity, no adenopathy, non-tender, FROM LUNGS: Clear to auscultation. Normal chest wall mechanics, no w/r/r HEART: no murmurs, S1 normal and S2 normal ABDOMEN: abdomen soft, non-tender, normo-active bowel sounds, no masses, no rebound or guarding. BACK: Back is symmetrical on inspection and there is no deformity, no midline tenderness, no CVA tenderness. SKIN: no rashes, petechiae, orbruising UPPER EXTREMITIES: upper extremities are grossly normal. FROM, nml pulses b/l. LOWER EXTREMITIES: No pitting edema. FROM, nml pulses b/l. NEURO EXAM: Normal sensorium, cranial nerves II-XII grossly intact, normal speech, no facial droop,nogross weakness of arms, no gross weakness of legs. Gross sensation intact. No ataxia. Vital Signs: reviewed and remarkable Differential Diagnosis: Dysrhythmia, PVCs, PACs, electrolyte abnormality, thyroid storm, ACS, PE, dehydration, anxiety, medication ADR, occult infection, as well as others were considered MEDICAL DECISION MAKING: This is an 89-year-old female presents emergency room due to concern for palpitations with accompanying chest tightness and right neck pain. Patient noted to be in A-fib with RVR when placed on telemetry by staff. Labs drawn and sent, IV established, EKG and chest ray performed at bedside interpreted by me and patient monitored on telemetry throughout. Given patient's use of metoprolol at baseline, she was given IV metoprolol here. She did have mild improvement in her overall range of heart rate however not significant enough for improvement in her symptoms. After 2 doses of this we discussed additional medication and she was started on a Cardizem drip. Patient was given gentle IV fluid hydration as well as IV magnesium. Her labs and chest x-ray were reassuring. She did notice improvement in her symptoms with lowering of her heart rate. At this time I do not suspect occult PE, dissection, pericarditis/myocarditis, or pericardial effusion. I do not suspect ACS. Patient states she has been compliant with taking her medications daily including her Eliquis. No evidence of acute infectious etiology. Due to persistent elevated heart rate and need for additional Cardizem and further management, case discussed with the hospitalist team for additional evaluation and management. Consultation(s): 2234: Discussed with Dr. Hurtado, [facility] hospitalist team, for additional evaluation and management. ER Treatment Provided: See below Diagnostics Interpreted By Me: -ECG: Atrial fibrillation at a rate of 131, normal axis, normal intervals, nonspecific ST/T wave changes EKG #2: Atrial fibrillation at 133, normal axis, normal intervals, nonspecific ST/T wave changes -Cardiac Monitoring: An order was placed for continuous cardiac monitoring. The monitor shows a rate of 126 with a.fib rhythm. -Laboratory studies: As stated above and show below. -Imaging studies: X-ray Chest: A single view study of the chest was reviewed and was negative for cardiomegaly, focal infiltrate, effusion, pulmonary edema, or wide mediastinum. Pacemaker noted. Triage Nursing Note Reviewed Prior/Outside Records Reviewed -cardiology office visit from May 11, 2024 she has history of tachybradycardia syndrome and paroxysmal atrial fibrillation Critical care: Critical care of 36 min performed to assess and manage high likelihood of life-threatening dysrhythmia, involving labs and imaging performed with assessment to evaluate palpitations and dysrhythmia diagnosis with frequent reassessment. This time includes bedside time, treatment discussions with patient/family/consultants, documentation time and excludes procedure time. Past Med/Surg History Problem List (Updated 10/14/24 @ 23:44 by Soo Coffey, ) Chest pain (Acute) Atrial fibrillation with rapid ventricular response (Acute) Palpitations (Acute) Diverticulitis (Acute) Abdominal pain UTI (urinary tract infection) Right flank pain Kidney stone (Acute) Encounter for pre-operative examination Gastroparesis (Chronic) Elevated LFTs Chest pain (Acute) Heart palpitations (Acute) Tachy-michael syndrome Paroxysmal atrial fibrillation Cardiac pacemaker in situ Hypertension Epigastric pain Hematuria (Acute) Right nephrolithiasis Right-sided back pain Sensorineural hearing loss (SNHL) of both ears Hyperlipidemia History of lumbar surgery (Chronic) History of cataract surgery (Chronic) B/L GERD (gastroesophageal reflux disease) (Chronic) Medical History CKD (chronic kidney disease) stage 3, GFR 30-59 ml/min Prediabetes Hx of renal calculi Pacemaker medtronic- checked remotely once per month- last office check 2-3 mos ago- Dr Prabhu TRISTAN On anticoagulant therapy ELIQUIS DAILY Thoracic aortic aneurysm Mildly dilated on echo 02/2019 per cardiology, but not seen on 08/2019 echo at [facility]. Diverticulosis History of skin cancer Migraines Paroxysmal atrial fibrillation Hypertension Surgical History S/P cardiac pacemaker procedure Hx of colonoscopy History of ERCP with stone removal and stent placement 02/28 [place] History of cystoscopy W/ STONE EXTRACTION History of tooth extraction History of breast biopsy Status post trigger finger release History of Mohs micrographic surgery for skin cancer History of cholecystectomy 02/02/2020; [facility]; MAC #3, ETT 7.0. No complications. Family History Other Coronary heart disease No family history of adverse response to anesthesia Social History Smoking Status: Never smoker Second Hand Exposure: No; Do You Dip or Chew Tobacco: No; Hx Alcohol Use: Yes Alcohol type: hard liquor Hx Substance Use: No Preferred Language: Barbadian Communication Ability: Effective Visual Impairment: No Limitations Retail [employer] Required: No Beliefs That Will Affect Care: None marital status: / Current Living Situation: Alone How many Children do You have: 0 Other Information That Helps Us Care for You: No Feels Safe at Home: Yes Safety Concerns: Feels Safe At This Time Assistive Devices: Glasses Allergies Allergies Allergy/AdvReac Type Severity Reaction Status Date / Time sulfamethoxazole Allergy Intermediate RASH Verified 01/20/24 09:58 trimethoprim Allergy Intermediate RASH Verified 01/20/24 09:58 venlafaxine [From Effexor] Allergy Intermediate Hives/Itchy Verified 01/20/24 09:58 /Rash Penicillins Allergy Mild Rash Verified 01/20/24 09:58 propoxyphene Allergy Mild Unknown Verified 01/20/24 09:58 Sulfa (Sulfonamide Allergy Mild Rash Verified 01/20/24 09:58 Antibiotics) amlodipine AdvReac Intermediate LEGS AND Verified 01/20/24 09:58 FEET GET TIGHT atorvastatin AdvReac Intermediate Inc Lft Verified 01/20/24 09:58 after Cholecystectomy enalapril AdvReac Intermediate tightness Verified 01/20/24 09:58 in ankles erythromycin base AdvReac Intermediate Vomiting Verified 01/20/24 09:58 fentanyl AdvReac Intermediate SEVERE Verified 01/20/24 09:58 N&V;DIZZY ondansetron [From Zofran] AdvReac Intermediate Nausea Verified 01/20/24 09:58 Quinolones AdvReac Intermediate N&V Verified 01/20/24 09:58 topiramate [From Topamax] AdvReac Intermediate "FINGERS Verified 01/20/24 09:58 NUMB" tramadol [From Ultram] AdvReac Intermediate Vomiting Verified 01/20/24 09:58 clindamycin AdvReac Mild Nausea Verified 01/20/24 09:58 codeine AdvReac Mild SICK TO Verified 01/20/24 09:58 STOMACH metronidazole AdvReac Unknown Unknown Verified 01/20/24 09:58 Home Meds Home Medications Medication Instructions Recorded Confirmed apixaban 2.5 mg tablet (Eliquis) 2.5 mg PO BID 10/14/24 10/14/24 metoprolol succinate 100 mg 100 mg PO DAILY 10/14/24 10/14/24 tablet,extended release 24 hr pantoprazole 40 mg tablet,delayed 40 mg PO DAILY 10/14/24 10/14/24 release rosuvastatin 5 mg tablet 5 mg PO DAILY 10/14/24 10/14/24 terazosin 1 mg capsule 1 mg PO HS 10/14/24 10/14/24 Results & Data (ED) Vital Signs Vital Signs - 24 hr 10/13/24 23:58 10/14/24 00:00 Pulse Rate 106 H Pulse Rate [Apical] 120 H Pulse Rhythm [Apical] Irregular Pulse Strength [Apical] Normal Respiratory Rate 17 Respiratory Effort / Characteristics Non-Labored Respiratory Depth Normal Respiratory Pattern Regular Blood Pressure [Right Arm] 107/80 Blood Pressure Mean [Right Arm] 89 Blood Pressure Position [Right Arm] Sitting Pulse Oximetry 98 Oxygen Delivery Method Room Air Laboratory Data 10/14/24 04:52 10/14/24 04:52 Lab Results 10/13/24 10/13/24 10/13/24 Range/Units 20:05 21:36 22:32 WBC 7.81 (4.8-10.8) K/ul RBC 4.66 (4.20-5.40) M/uL Hgb 14.4 (12.0-16.0) g/dl Hct 44.0 (37.0-47.0) % MCV 94.4 (80.0-100.0) fL MCH 30.9 (25.0-34.0) pg MCHC 32.7 (32.0-36.0) g/dL RDW Std Deviation 43.5 (36.4-46.3) fL RDW Coeff of Ling 12.6 (11.5-14.5) % Plt Count 249 (130-400) K/uL MPV 9.5 (9.4-12.4) fL Immature Gran % (Auto) 0.6 % Neut % (Auto) 62.8 % Lymph % (Auto) 29.1 % [place] % (Auto) 6.0 % Eos % (Auto) 0.9 % Baso % (Auto) 0.6 % Neut # (Auto) 4.90 (1.40-6.50) K/uL Lymph # (Auto) 2.27 (1.20-3.40) K/uL [place] # (Auto) 0.47 (0.11-0.59) K/uL Eos # (Auto) 0.07 (0.00-0.50) K/uL Baso # (Auto) 0.05 (0.00-0.20) K/uL Immature Gran # (Auto) 0.05 (0.01-0.20) K/uL PT Cancelled 11.5 INR Cancelled 1.1 Sodium 138 (136-145) mmol/L Potassium 3.9 (3.5-5.1) mmol/L Chloride 102 (98-107) mmol/L Carbon Dioxide 27 (21-32) mmol/L Anion Gap 9 (3-11) BUN 25 H (6-23) mg/dl Creatinine 0.89 (0.6-1.2) mg/dl Est Cr Clr Drug Dosing 36.1 ml/min eGFR 62.32 BUN/Creatinine Ratio 28.1 H (10-20) Glucose 126 H (70-99(Fasting)) mg/dl Calcium 10.3 (8.6-10.3) mg/dl Magnesium 2.0 (1.7-2.4) mg/dl Total Bilirubin 0.3 (0.2-1.0) mg/dl AST 20 (13-39) U/L ALT 14 (7-52) U/L Alkaline Phosphatase 42 (34-104) U/L Troponin I High Sens 13.9 (0-14) pg/ml Total Protein 7.3 (6.0-8.3) gm/dl Albumin 4.8 (3.4-5.0) gm/dl Globulin 2.5 (2.5-4.0) gm/dl Albumin/Globulin Ratio 1.9 (0.9-2) Lipase 32 (11-82) U/L TSH 2.848 (0.300-4.500) uIu/ml Urine Color Urine Appearance (Clear) Urine pH (4.5-7.5) Ur Specific [place] (1.000-1.030) Urine Protein (Negative) Urine Glucose (UA) (Negative) Urine Ketones (Negative) Urine Blood (Negative) Urine Nitrite (Negative) Urine Bilirubin (Negative) Urine Urobilinogen (Negative) Ur Leukocyte Esterase (Negative) Urine WBC (Auto) (0-5) /hpf Urine RBC (Auto) (0-2) /hpf U Hyaline Cast (Auto) (0-2) /lpf U Epithel Cells (Auto) (0-2) /hpf Urine Bacteria (Auto) (None Seen) Adenovirus (PCR) Not Detected (NotDetected) B. pertussis DNA (PCR) Not Detected (NotDetected) B.parapertussis DNA PCR Not Detected (NotDetected) C. pneumoniae DNA (PCR) Not Detected (NotDetected) Coronavirus OC43 (PCR) Not Detected (NotDetected) Coronavirus HKU1 (PCR) Not Detected (NotDetected) Coronavirus 229E (PCR) Not Detected (NotDetected) SARS-CoV-2 (PCR) Not Detected (NotDetected) Coronavirus NL63 (PCR) Not Detected (NotDetected) Human Metapneumovir PCR Not Detected (NotDetected) Influenza Type A (PCR) Not Detected (NotDetected) Influenza Type B (PCR) Not Detected (NotDetected) M. pneumoniae (PCR) Not Detected (NotDetected) Parainfluenza 1 (PCR) Not Detected (NotDetected) Parainfluenza 2 (PCR) Not Detected (NotDetected) Parainfluenza 3 (PCR) Not Detected (NotDetected) Parainfluenza 4 (PCR) Not Detected (NotDetected) RSV (PCR) Not Detected (NotDetected) Entero/Rhino (PCR) Not Detected (NotDetected) 10/13/24 Range/Units 23:01 WBC (4.8-10.8) K/ul RBC (4.20-5.40) M/uL Hgb (12.0-16.0) g/dl Hct (37.0-47.0) % MCV (80.0-100.0) fL MCH (25.0-34.0) pg MCHC (32.0-36.0) g/dL RDW Std Deviation (36.4-46.3) fL RDW Coeff of Ling (11.5-14.5) % Plt Count (130-400) K/uL MPV (9.4-12.4) fL Immature Gran % (Auto) % Neut % (Auto) % Lymph % (Auto) % [place] % (Auto) % Eos % (Auto) % Baso % (Auto) % Neut # (Auto) (1.40-6.50) K/uL Lymph # (Auto) (1.20-3.40) K/uL [place] # (Auto) (0.11-0.59) K/uL Eos # (Auto) (0.00-0.50) K/uL Baso # (Auto) (0.00-0.20) K/uL Immature Gran # (Auto) (0.01-0.20) K/uL PT INR Sodium (136-145) mmol/L Potassium (3.5-5.1) mmol/L Chloride (98-107) mmol/L Carbon Dioxide (21-32) mmol/L Anion Gap (3-11) BUN (6-23) mg/dl Creatinine (0.6-1.2) mg/dl Est Cr Clr Drug Dosing ml/min eGFR BUN/Creatinine Ratio (10-20) Glucose (70-99(Fasting)) mg/dl Calcium (8.6-10.3) mg/dl Magnesium (1.7-2.4) mg/dl Total Bilirubin (0.2-1.0) mg/dl AST (13-39) U/L ALT (7-52) U/L Alkaline Phosphatase (34-104) U/L Troponin I High Sens (0-14) pg/ml Total Protein (6.0-8.3) gm/dl Albumin (3.4-5.0) gm/dl Globulin (2.5-4.0) gm/dl Albumin/Globulin Ratio (0.9-2) Lipase (11-82) U/L TSH (0.300-4.500) uIu/ml Urine Color Yellow Urine Appearance Clear (Clear) Urine pH 6.5 (4.5-7.5) Ur Specific [place] 1.009 (1.000-1.030) Urine Protein Negative (Negative) Urine Glucose (UA) Negative (Negative) Urine Ketones Negative (Negative) Urine Blood Negative (Negative) Urine Nitrite Negative (Negative) Urine Bilirubin Negative (Negative) Urine Urobilinogen Negative (Negative) Ur Leukocyte Esterase Trace H (Negative) Urine WBC (Auto) 0-5 (0-5) /hpf Urine RBC (Auto) 0-2 (0-2) /hpf U Hyaline Cast (Auto) 0-2 (0-2) /lpf U Epithel Cells (Auto) 0-2 (0-2) /hpf Urine Bacteria (Auto) None Seen (None Seen) Adenovirus (PCR) (NotDetected) B. pertussis DNA (PCR) (NotDetected) B.parapertussis DNA PCR (NotDetected) C. pneumoniae DNA (PCR) (NotDetected) Coronavirus OC43 (PCR) (NotDetected) Coronavirus HKU1 (PCR) (NotDetected) Coronavirus 229E (PCR) (NotDetected) SARS-CoV-2 (PCR) (NotDetected) Coronavirus NL63 (PCR) (NotDetected) Human Metapneumovir PCR (NotDetected) Influenza Type A (PCR) (NotDetected) Influenza Type B (PCR) (NotDetected) M. pneumoniae (PCR) (NotDetected) Parainfluenza 1 (PCR) (NotDetected) Parainfluenza 2 (PCR) (NotDetected) Parainfluenza 3 (PCR) (NotDetected) Parainfluenza 4 (PCR) (NotDetected) RSV (PCR) (NotDetected) Entero/Rhino (PCR) (NotDetected) Administered Medications Acetaminophen (Acetaminophen 325 Mg Tab) 650 mg PO Q4H PRN PRN Reason: Pain or Fever Stop: 11/13/24 02:37 Last Admin: 10/14/24 06:50 Dose: 650 mg Documented By: NARDA Apixaban (Apixaban 2.5 Mg Tab) 2.5 mg PO BID MANUELITO Stop: 11/13/24 08:59 Last Admin: 10/14/24 20:09 Dose: 2.5 mg Documented By: Admin: 10/14/24 07:41 Dose: 2.5 mg Documented By: JACKIE Famotidine (Pepcid 20mg Iv Push) 20 mg in 5 mls @ 2.5 mls/min IV DAILY MANUELITO Stop: 11/13/24 08:59 Last Admin: 10/14/24 10:12 Dose: 2.5 mls/min Documented By: JACKIE Amiodarone HCl/Dextrose (Nexterone / D5w) 360 mg in 200 mls @ 16.667 mls/hr IV .Q12H MANUELITO Stop: 11/13/24 15:59 Last Admin: 10/14/24 16:04 Dose: 0.5 mg/min, 16.7 mls/hr Documented By: JORGE Co-signed By: DANIELA Metoprolol Succinate (Metoprolol Succ 50mg Ext Rel Tab) 100 mg PO DAILY MANUELITO Stop: 11/13/24 08:59 Last Admin: 10/14/24 07:38 Dose: 100 mg Documented By: JACKIE Pantoprazole Sodium (Pantoprazole 40 Mg Tab) 40 mg PO DAILY MANUELITO Stop: 11/13/24 08:59 Last Admin: 10/14/24 07:41 Dose: 40 mg Documented By: JACKIE Rosuvastatin Calcium (Rosuvastatin Calcium 5 Mg Tab) 5 mg PO DAILY MANUELITO Stop: 11/13/24 08:59 Last Admin: 10/14/24 07:41 Dose: 5 mg Documented By: JACKIE Sumatriptan Succinate (Sumatriptan Succinate 100 Mg Tab) 100 mg PO DAILY PRN PRN Reason: Migraine Headache Stop: 11/13/24 18:01 Last Admin: 10/14/24 18:37 Dose: 100 mg Documented By: JORGE Discontinued Medications Dicyclomine HCl (Dicyclomine Hcl 10 Mg Cap) 10 mg PO NOW ONE Stop: 10/14/24 14:55 Last Admin: 10/14/24 15:24 Dose: 10 mg Documented By: JORGE Sodium Chloride (Nss) 500 mls @ 125 mls/hr IV .Q4H MANUELITO Stop: 10/14/24 00:14 Last Infusion: 10/13/24 22:52 Dose: Infused Documented By: Admin: 10/13/24 20:21 Dose: 125 mls/hr Documented By: KOBY Magnesium Sulfate/Dextrose (Magnesium Sulfate / D5w) 1 gm in 100 mls @ 100 mls/hr IV NOW STA Stop: 10/13/24 22:21 Last Infusion: 10/13/24 23:36 Dose: Infused Documented By: Admin: 10/13/24 21:34 Dose: 100 mls/hr Documented By: KOBY Diltiazem HCl 125 mg/ Dextrose 125 mls @ 10 mls/hr IV .[id number] MANUELITO; Protocol Stop: 11/12/24 22:14 Last Titration: 10/14/24 03:12 Dose: Infused Documented By: COLLIN Co-signed By: MANJU Titration: 10/13/24 23:48 Dose: 10 mg/hr, 10 mls/hr Documented By: COLLIN Co-signed By: MANJU Admin: 10/13/24 22:49 Dose: 5 mg/hr, 5 mls/hr Documented By: KOBY Co-signed By: JOSE Famotidine (Pepcid 20mg Iv Push) 20 mg in 5 mls @ 2.5 mls/min IV NOW STA Stop: 10/14/24 01:01 Last Admin: 10/14/24 01:51 Dose: 2.5 mls/min Documented By: COLLIN Amiodarone HCl/Dextrose (Nexterone / D5w) 150 mg in 100 mls @ 600 mls/hr IV NOW STA Stop: 10/14/24 10:06 Last Infusion: 10/14/24 10:46 Dose: Infused Documented By: JACKIE Co-signed By: LETTY Admin: 10/14/24 10:15 Dose: 600 mls/hr Documented By: JACKIE Co-signed By: JOVITA Amiodarone HCl/Dextrose (Nexterone / D5w) 360 mg in 200 mls @ 33.333 mls/hr IV ONE ONE Stop: 10/14/24 16:06 Last Infusion: 10/14/24 16:04 Dose: Infused Documented By: JORGE Co-signed By: DANIELA Admin: 10/14/24 10:29 Dose: 1 mg/min, 33.3 mls/hr Documented By: JACKIE Co-signed By: JOVITA Famotidine (Pepcid 20mg Iv Push) 20 mg in 5 mls @ 2.5 mls/min IV NOW STA Stop: 10/14/24 13:49 Last Admin: 10/14/24 13:52 Dose: 2.5 mls/min Documented By: MARIAMA Metoprolol Tartrate (Metoprolol Tartrate 1 Mg/Ml Vial) 5 mg IV NOW STA Stop: 10/13/24 20:28 Last Admin: 10/13/24 20:29 Dose: 5 mg Documented By: KOBY Metoprolol Tartrate (Metoprolol Tartrate 1 Mg/Ml Vial) 5 mg IV NOW STA Stop: 10/13/24 21:23 Last Admin: 10/13/24 21:27 Dose: 5 mg Documented By: KOBY Metoprolol Tartrate (Metoprolol Tartrate 25 Mg Tab) 25 mg PO NOW STA Stop: 10/14/24 01:35 Last Admin: 10/14/24 01:49 Dose: 25 mg Documented By: COLLIN Metoprolol Tartrate (Metoprolol Tartrate 1 Mg/Ml Vial) 2.5 mg IV NOW STA Stop: 10/14/24 06:33 Last Admin: 10/14/24 07:00 Dose: Not Given Documented By: NARDA Miscellaneous (Stat Iv Infusion Titration Per Protocol) 1 each N/A NOW STA Stop: 10/13/24 22:13 Last Admin: 10/13/24 22:50 Dose: Not Given Documented By: KOBY Morphine Sulfate (Morphine Sulfate 2 Mg/Ml Carp) 1 mg IV NOW STA Stop: 10/14/24 01:01 Last Admin: 10/14/24 01:50 Dose: 1 mg Documented By: COLLIN Ondansetron HCl (Ondansetron Inj 2 Mg/Ml 2 Ml Vial) 4 mg IV NOW STA Stop: 10/14/24 06:33 Last Admin: 10/14/24 06:52 Dose: 4 mg Documented By: NARDA Ondansetron HCl (Ondansetron Inj 2 Mg/Ml 2 Ml Vial) 4 mg IV NOW STA Stop: 10/14/24 19:26 Last Admin: 10/14/24 19:42 Dose: 4 mg Documented By: JOCELYN Imaging Data Radiologist's Impression: Chest X-Ray 10/13/24 20:14 Exam(s): XR CXR 1 VIEW EXAM: XR Chest, 1 View CLINICAL HISTORY: Reason for exam: Chest pain, nonspecific. TECHNIQUE: Frontal view of the chest. COMPARISON: 05/02/2024 FINDINGS: Lungs: There is mild bibasilar subsegmental atelectasis. The lungs are otherwise clear. Pleural space: Unremarkable. No pneumothorax. Heart: Unremarkable. No cardiomegaly. Mediastinum: Unremarkable. Normal mediastinal contour. Bones/joints: Unremarkable. No acute fracture. Tubes, lines and devices: There is a cardiac pacemaker. IMPRESSION: Mild bibasilar subsegmental atelectasis. Electronically signed by: Claude Bermeo MD 10/13/24 22:35 PM Discharge Plan Visit Data Chief Complaint: Chest Pain Stated Complaint: PACE MAKER, CHEST PAIN, WEAK ED Provider: Soo Coffey Discharge Problem: Palpitations, Atrial fibrillation with rapid ventricular response, Chest pain Patient Disposition: Admitted As Inpatient Discharge Instructions Interventions: ED Discharge Assessment Last Done: 10/14/24 14:08
[2024-10-13 22:21] LABS: INR 1.1 (0.9-1.1); Prothrombin Time 11.5 Seconds (9.0-12.0)
--- NOTE | 2024-10-13 22:36 | XRay Report ---
Exam(s): XR CXR 1 VIEW EXAM: XR Chest, 1 View CLINICAL HISTORY: Reason for exam: Chest pain, nonspecific. TECHNIQUE: Frontal view of the chest. COMPARISON: 05/02/2024 FINDINGS: Lungs: There is mild bibasilar subsegmental atelectasis. The lungs are otherwise clear. Pleural space: Unremarkable. No pneumothorax. Heart: Unremarkable. No cardiomegaly. Mediastinum: Unremarkable. Normal mediastinal contour. Bones/joints: Unremarkable. No acute fracture. Tubes, lines and devices: There is a cardiac pacemaker. IMPRESSION: Mild bibasilar subsegmental atelectasis. Electronically signed by: Claude Bermeo MD 10/13/24 22:35 PM
[2024-10-13] MEDS: dilTIAZem HCL 125 MG in DEXTROSE 5% 100 ML IV SCH (22:49)
[2024-10-13] MEDS: STAT IV Infusion **Titration per Protocol STA (22:50)
[2024-10-13 22:51] LABS: Thyroid Stimulating Hormone 2.848 uIu/ml (0.300-4.500)
[2024-10-13 23:15] LABS: Appearance Urine Clear (Clear); Bacteria Urine Automated None Seen (None Seen); Bilirubin Urine Negative (Negative); Blood Urine Negative (Negative); Cast Urine Automated 0-2 /lpf (0-2); Color Urine Yellow; Epithelial Cell Urine Auto 0-2 /hpf (0-2); Glucose Urine UA Negative (Negative); Ketones Urine Negative (Negative); Leukocyte Esterase Urine Trace (Negative); Nitrite Urine Negative (Negative); Protein Urine Negative (Negative); RBC Urine Automated 0-2 /hpf (0-2); Specific Gravity Urine 1.009 (1.000-1.030); Urobilinogen Urine Negative (Negative); WBC Urine Automated 0-5 /hpf (0-5); pH Urine 6.5 (4.5-7.5)
[2024-10-13 23:50] LABS: Adenovirus PCR Not Detected (NotDetected); Bordetella parapertussis PCR Not Detected (NotDetected); Bordetella pertussis PCR Not Detected (NotDetected); Chlamydia pneumoniae PCR Not Detected (NotDetected); Coronavirus 229E PCR Not Detected (NotDetected); Coronavirus CoV-2 (COVID19)PCR Not Detected (NotDetected); Coronavirus HKU1 PCR Not Detected (NotDetected); Coronavirus NL63 PCR Not Detected (NotDetected); Coronavirus OC43PCR Not Detected (NotDetected); Human Metapneumovirus PCR Not Detected (NotDetected); Influenza A PCR Not Detected (NotDetected); Influenza B PCR Not Detected (NotDetected); Mycoplasma pneumoniae PCR Not Detected (NotDetected); Parainfluenza Virus 1 PCR Not Detected (NotDetected); Parainfluenza Virus 2 PCR Not Detected (NotDetected); Parainfluenza Virus 3 PCR Not Detected (NotDetected); Parainfluenza Virus 4 PCR Not Detected (NotDetected); Respiratory Syncytial VirusPCR Not Detected (NotDetected); Rhinovirus/Enterovirus PCR Not Detected (NotDetected)
--- NOTE | 2024-10-14 01:45 | History & Physical Report ---
Date of Service October 14, 2024 Assessment & Plan (1) Atrial fibrillation with rapid ventricular response: Plan: 89-year-old female with past medical history significant for hyperlipidemia, prediabetes, enlarged thoracic aorta, paroxysmal atrial fibrillation, t achybradycardia syndrome status post pacemaker, hypertension, Raynaud's phenomenon, gastroparesis, GERD, CKD stage III, right kidney stone, lumbar degenerative disc disease, senile osteoporosis, restless leg syndrome, chronic migraine, history of colonic diverticulitis presents with palpitations and chest discomfort. Seems around 4 PM p.m. when she was in concert she noticed palpitations. She went home and rested but they were not going away so she came to the ER. She also complaining of pain in her lower chest and epigastric region. Has some epigastric tenderness. Denies any nausea. No sweating. No shortness of breath. No headache or dizziness. No runny nose or sore throat. No fevers. Appetite is okay. Normal bowel and bladder movements. A-fib with rapid ventricular response Received 2 dose of IV Lopressor 5 mg in the ER which did not improve and was started on Cardizem drip Will give a dose of p.o. Lopressor [address] an IV Lopressor as needed Continue home metoprolol succinate and Eliquis Close monitoring telemetry Will get echo Consult cardiology in a.m. for further recommendation Chest pain Also some epigastric tenderness EKG no acute findings Initial troponin unremarkable Will follow serial enzymes and echo Closely monitor on telemetry Epigastric tenderness iv pepcid ordered. Tachybradycardia syndrome Status post pacemaker Prediabetes Will follow HbA1c levels History of CKD stage III Will follow labs Hypertension Continue metoprolol with holding parameters Will hold Hytrin for now as blood pressure somewhat soft GERD On Protonix DVT prophylaxis On Eliquis. Disposition Telemetry Full code. History of Present Illness Chief Complaint: Palpitations and chest pain Primary Care Provider: Preston Villagran MD 89-year-old female with past medical history significant for hyperlipidemia, prediabetes, enlarged thoracic aorta, paroxysmal atrial fibrillation, tachybradycardia syndrome status post pacemaker, hypertension, Raynaud's phenomenon, gastroparesis, GERD, CKD stage III, right kidney stone, lumbar degenerative disc disease, senile osteoporosis, restless leg syndrome, chronic migraine, history of colonic diverticulitis presents with palpitations and chest discomfort. Seems around 4 PM p.m. when she was in concert she noticed palpitations. She went home and rested but they were not going away so she came to the ER. She also complaining of pain in her lower chest and epigastric region. Has some epigastric tenderness. Denies any nausea. No sweating. No shortness of breath. No headache or dizziness. No runny nose or sore throat. No fevers. Appetite is okay. Normal bowel and bladder movements. Past medical history. As mentioned above Past surgical history. EGD. EGD with endoscopic ultrasound. ERCP. Lithotripsy. Lumbar hemilaminectomy. Bilateral cataracts. Cholecystectomy. Social history. . No smoking. Alcohol very little. No drug use. Family history. Father had OR. Mother had hip fracture. Sister had OR. Brother had OR. Allergies Allergy/AdvReac Type Severity Reaction Status Date / Time sulfamethoxazole Allergy Intermediate RASH Verified 01/20/24 09:58 trimethoprim Allergy Intermediate RASH Verified 01/20/24 09:58 venlafaxine [From Effexor] Allergy Intermediate Hives/Itchy Verified 01/20/24 09:58 /Rash Penicillins Allergy Mild Rash Verified 01/20/24 09:58 propoxyphene Allergy Mild Unknown Verified 01/20/24 09:58 Sulfa (Sulfonamide Allergy Mild Rash Verified 01/20/24 09:58 Antibiotics) amlodipine AdvReac Intermediate LEGS AND Verified 01/20/24 09:58 FEET GET TIGHT atorvastatin AdvReac Intermediate Inc Lft Verified 01/20/24 09:58 after Cholecystectomy enalapril AdvReac Intermediate tightness Verified 01/20/24 09:58 in ankles erythromycin base AdvReac Intermediate Vomiting Verified 01/20/24 09:58 fentanyl AdvReac Intermediate SEVERE Verified 01/20/24 09:58 N&V;DIZZY ondansetron [From Zofran] AdvReac Intermediate Nausea Verified 01/20/24 09:58 Quinolones AdvReac Intermediate N&V Verified 01/20/24 09:58 topiramate [From Topamax] AdvReac Intermediate "FINGERS Verified 01/20/24 09:58 NUMB" tramadol [From Ultram] AdvReac Intermediate Vomiting Verified 01/20/24 09:58 clindamycin AdvReac Mild Nausea Verified 01/20/24 09:58 codeine AdvReac Mild SICK TO Verified 01/20/24 09:58 STOMACH metronidazole AdvReac Unknown Unknown Verified 01/20/24 09:58 Home Medications Medication Instructions Recorded Confirmed Type apixaban 2.5 mg tablet (Eliquis) 2.5 mg PO BID 10/14/24 10/14/24 History metoprolol succinate 100 mg 100 mg PO DAILY 10/14/24 10/14/24 History tablet,extended release 24 hr pantoprazole 40 mg tablet,delayed 40 mg PO DAILY 10/14/24 10/14/24 History release rosuvastatin 5 mg tablet 5 mg PO DAILY 10/14/24 10/14/24 History terazosin 1 mg capsule 1 mg PO HS 10/14/24 10/14/24 History Past Med/Surg History Problem List (Updated 10/13/24 @ 21:59 by Soo Coffey DO) Atrial fibrillation with rapid ventricular response (Acute) Palpitations (Acute) Diverticulitis (Acute) Abdominal pain UTI (urinary tract infection) Right flank pain Kidney stone (Acute) Encounter for pre-operative examination Gastroparesis (Chronic) Elevated LFTs Chest pain (Acute) Heart palpitations (Acute) Tachy-michael syndrome Paroxysmal atrial fibrillation Cardiac pacemaker in situ Hypertension Epigastric pain Hematuria (Acute) Right nephrolithiasis Right-sided back pain Sensorineural hearing loss (SNHL) of both ears Hyperlipidemia History of lumbar surgery (Chronic) History of cataract surgery (Chronic) B/L GERD (gastroesophageal reflux disease) (Chronic) Medical History Abdominal pain CKD (chronic kidney disease) stage 3, GFR 30-59 ml/min Prediabetes Hx of renal calculi Pacemaker Sensorineural hearing loss (SNHL) of both ears On anticoagulant therapy Thoracic aortic aneurysm Diverticulosis History of skin cancer Migraines Paroxysmal atrial fibrillation GERD (gastroesophageal reflux disease) Hyperlipidemia Hypertension Gastroparesis Surgical History S/P cardiac pacemaker procedure Hx of colonoscopy History of ERCP History of cystoscopy History of tooth extraction History of breast biopsy Status post trigger finger release History of Mohs micrographic surgery for skin cancer History of cholecystectomy History of lumbar surgery History of cataract surgery Family History Other Coronary heart disease No family history of adverse response to anesthesia Social History Smoking Status: Never smoker Second Hand Exposure: No; Do You Dip or Chew Tobacco: No; Hx Alcohol Use: Yes Alcohol type: hard liquor Hx Substance Use: No Preferred Language: Frisian Communication Ability: Effective Visual Impairment: No Limitations Pail Bailer Required: No Beliefs That Will Affect Care: None marital status: / Current Living Situation: Alone How many Children do You have: 0 Other Information That Helps Us Care for You: No Feels Safe at Home: Yes Safety Concerns: Feels Safe At This Time Assistive Devices: Glasses Review of Systems Review of Systems: All systems reviewed & are unremarkable except as noted in HPI & below Physical Exam Physical Exam: General- Not in distress Head- atraumatic Eyes- PERRL. ENT- oropharynx clear Neck- supple, no JVD. Lungs- clear to auscultation no wheezing or crackles Heart- irregular rhythm; tachycardia,no murmur, no gallop. Abdomen- normal bowel sounds, soft, nontender, no distension. Extremities- no pretibial edema, no erythema seen Neuro- alert, oriented ; PERRL, no facial palsy; no dysarthria; moves extremities Results & Data Results & Data Vital Signs (Past 12 Hours) Vital Signs Temp Pulse Pulse Resp BP BP Pulse Ox 10/13/24 23:58 106 H 10/13/24 22:51 137 H 20 148/98 H 96 10/13/24 22:00 132 H 18 123/87 94 10/13/24 21:42 125 H 123/87 10/13/24 21:27 130 H 135/93 10/13/24 20:44 120 H 118/93 10/13/24 20:29 139 H 130/81 10/13/24 20:22 141 H 20 96 10/13/24 20:12 99 10/13/24 20:11 136 H 22 138/91 97 10/13/24 20:04 135 H 10/13/24 19:48 36.8 C 122 H 18 98 O2 Del Method 10/13/24 23:58 10/13/24 22:51 Room Air 10/13/24 22:00 Room Air 10/13/24 21:42 10/13/24 21:27 10/13/24 20:44 10/13/24 20:29 10/13/24 20:22 Room Air 10/13/24 20:12 Room Air 10/13/24 20:11 Room Air 10/13/24 20:04 10/13/24 19:48 Room Air Diagnostic Findings Laboratory Results WBC 7.81 K/ul (4.8-10.8) 10/13/24 20:05 RBC 4.66 M/uL (4.20-5.40) 10/13/24 20:05 Hgb 14.4 g/dl (12.0-16.0) 10/13/24 20:05 Hct 44.0 % (37.0-47.0) 10/13/24 20:05 MCV 94.4 fL (80.0-100.0) 10/13/24 20:05 MCH 30.9 pg (25.0-34.0) 10/13/24 20:05 MCHC 32.7 g/dL (32.0-36.0) 10/13/24 20:05 RDW Std Deviation 43.5 fL (36.4-46.3) 10/13/24 20:05 RDW Coeff of Ling 12.6 % (11.5-14.5) 10/13/24 20:05 Plt Count 249 K/uL (130-400) 10/13/24 20:05 MPV 9.5 fL (9.4-12.4) 10/13/24 20:05 Immature Gran % (Auto) 0.6 % 10/13/24 20:05 Neut % (Auto) 62.8 % 10/13/24 20:05 Lymph % (Auto) 29.1 % 10/13/24 20:05 [place] % (Auto) 6.0 % 10/13/24 20:05 Eos % (Auto) 0.9 % 10/13/24 20:05 Baso % (Auto) 0.6 % 10/13/24 20:05 Neut # (Auto) 4.90 K/uL (1.40-6.50) 10/13/24 20:05 Lymph # (Auto) 2.27 K/uL (1.20-3.40) 10/13/24 20:05 [place] # (Auto) 0.47 K/uL (0.11-0.59) 10/13/24 20:05 Eos # (Auto) 0.07 K/uL (0.00-0.50) 10/13/24 20:05 Baso # (Auto) 0.05 K/uL (0.00-0.20) 10/13/24 20:05 Immature Gran # (Auto) 0.05 K/uL (0.01-0.20) 10/13/24 20:05 PT 11.5 Seconds (9.0-12.0) 10/13/24 21:36 INR 1.1 (0.9-1.1) 10/13/24 21:36 Sodium 138 mmol/L (136-145) 10/13/24 20:05 Potassium 3.9 mmol/L (3.5-5.1) 10/13/24 20:05 Chloride 102 mmol/L (98-107) 10/13/24 20:05 Carbon Dioxide 27 mmol/L (21-32) 10/13/24 20:05 Anion Gap 9 (3-11) 10/13/24 20:05 BUN 25 mg/dl (6-23) H 10/13/24 20:05 Creatinine 0.89 mg/dl (0.6-1.2) 10/13/24 20:05 Est Cr Clr Drug Dosing 36.1 ml/min 10/13/24 20:05 eGFR 62.32 10/13/24 20:05 BUN/Creatinine Ratio 28.1 (10-20) H 10/13/24 20:05 Glucose 126 mg/dl (70-99(Fasting)) H 10/13/24 20:05 Calcium 10.3 mg/dl (8.6-10.3) 10/13/24 20:05 Magnesium 2.0 mg/dl (1.7-2.4) 10/13/24 20:05 Total Bilirubin 0.3 mg/dl (0.2-1.0) 10/13/24 20:05 AST 20 U/L (13-39) 10/13/24 20:05 ALT 14 U/L (7-52) 10/13/24 20:05 Alkaline Phosphatase 42 U/L (34-104) 10/13/24 20:05 Troponin I High Sens 13.9 pg/ml (0-14) 10/13/24 20:05 Total Protein 7.3 gm/dl (6.0-8.3) 10/13/24 20:05 Albumin 4.8 gm/dl (3.4-5.0) 10/13/24 20:05 Globulin 2.5 gm/dl (2.5-4.0) 10/13/24 20:05 Albumin/Globulin Ratio 1.9 (0.9-2) 10/13/24 20:05 Lipase 32 U/L (11-82) 10/13/24 20:05 TSH 2.848 uIu/ml (0.300-4.500) 10/13/24 20:05 Urine Color Yellow 10/13/24 23:01 Urine Appearance Clear (Clear) 10/13/24 23:01 Urine pH 6.5 (4.5-7.5) 10/13/24 23:01 Ur Specific [place] 1.009 (1.000-1.030) 10/13/24 23:01 Urine Protein Negative (Negative) 10/13/24 23:01 Urine Glucose (UA) Negative (Negative) 10/13/24 23:01 Urine Ketones Negative (Negative) 10/13/24 23:01 Urine Blood Negative (Negative) 10/13/24 23:01 Urine Nitrite Negative (Negative) 10/13/24 23:01 Urine Bilirubin Negative (Negative) 10/13/24 23:01 Urine Urobilinogen Negative (Negative) 10/13/24 23:01 Ur Leukocyte Esterase Trace (Negative) H 10/13/24 23:01 Urine WBC (Auto) 0-5 /hpf (0-5) 10/13/24 23:01 Urine RBC (Auto) 0-2 /hpf (0-2) 10/13/24 23:01 U Hyaline Cast (Auto) 0-2 /lpf (0-2) 10/13/24 23:01 U Epithel Cells (Auto) 0-2 /hpf (0-2) 10/13/24 23:01 Urine Bacteria (Auto) None Seen (None Seen) 10/13/24 23:01 Adenovirus (PCR) Not Detected (NotDetected) 10/13/24 22:32 B. pertussis DNA (PCR) Not Detected (NotDetected) 10/13/24 22:32 B.parapertussis DNA PCR Not Detected (NotDetected) 10/13/24 22:32 C. pneumoniae DNA (PCR) Not Detected (NotDetected) 10/13/24 22:32 Coronavirus OC43 (PCR) Not Detected (NotDetected) 10/13/24 22:32 Coronavirus HKU1 (PCR) Not Detected (NotDetected) 10/13/24 22:32 Coronavirus 229E (PCR) Not Detected (NotDetected) 10/13/24 22:32 SARS-CoV-2 (PCR) Not Detected (NotDetected) 10/13/24 22:32 Coronavirus NL63 (PCR) Not Detected (NotDetected) 10/13/24 22:32 Human Metapneumovir PCR Not Detected (NotDetected) 10/13/24 22:32 Influenza Type A (PCR) Not Detected (NotDetected) 10/13/24 22:32 Influenza Type B (PCR) Not Detected (NotDetected) 10/13/24 22:32 M. pneumoniae (PCR) Not Detected (NotDetected) 10/13/24 22:32 Parainfluenza 1 (PCR) Not Detected (NotDetected) 10/13/24 22:32 Parainfluenza 2 (PCR) Not Detected (NotDetected) 10/13/24 22:32 Parainfluenza 3 (PCR) Not Detected (NotDetected) 10/13/24 22:32 Parainfluenza 4 (PCR) Not Detected (NotDetected) 10/13/24 22:32 RSV (PCR) Not Detected (NotDetected) 10/13/24 22:32 Entero/Rhino (PCR) Not Detected (NotDetected) 10/13/24 22:32 Impressions Chest X-Ray 10/13/24 20:14 Exam(s): XR CXR 1 VIEW EXAM: XR Chest, 1 View CLINICAL HISTORY: Reason for exam: Chest pain, nonspecific. TECHNIQUE: Frontal view of the chest. COMPARISON: 05/02/2024 FINDINGS: Lungs: There is mild bibasilar subsegmental atelectasis. The lungs are otherwise clear. Pleural space: Unremarkable. No pneumothorax. Heart: Unremarkable. No cardiomegaly. Mediastinum: Unremarkable. Normal mediastinal contour. Bones/joints: Unremarkable. No acute fracture. Tubes, lines and devices: There is a cardiac pacemaker. IMPRESSION: Mild bibasilar subsegmental atelectasis. Electronically signed by: Claude Bermeo MD 10/13/24 22:35 PM ECG Additional Comments: ECG. Atrial fibrillation with rapid ventricular response with a rate of 133. No acute ST changes seen. Code Status & VTE Plan VTE Prophylaxis Plan VTE Prophylaxis will be ordered: Yes
[2024-10-14] MEDS: METOPROLOL TARTRATE 25 MG TAB PO STA (01:49)
[2024-10-14] MEDS: MoRPHine SULFATE 2 MG/ML CARP IV STA (01:50)
[2024-10-14] MEDS: FAMOTIDINE 20MG IV PUSH 20 MG/5 ML SYR IV STA ×2 (01:51→13:52)
[2024-10-14] MEDS ORDERED: NITROGLYCERIN SL 0.4 MG/TAB TAB SL PRN (02:38)
[2024-10-14] MEDS ORDERED: POLYETHYLENE (MIRALAX) 17 GM PACK PO PRN (02:38)
[2024-10-14 05:25] LABS: Basophils # (auto) 0.05 K/uL (0.00-0.20); Basophils % (auto) 0.5 %; Eosinophils # (auto) 0.08 K/uL (0.00-0.50); Eosinophils % (auto) 0.8 %; Hematocrit (blood only) 41.7 % (37.0-47.0); Hemoglobin 13.4 g/dl (12.0-16.0); Immature Granulocytes # (auto) 0.06 K/uL (0.01-0.20); Immature Granulocytes % (auto) 0.6 %; Lymphocytes # (auto) 2.97 K/uL (1.20-3.40); Lymphocytes % (auto) 31.5 %; Mean Corpuscular Hemoglobin 30.3 pg (25.0-34.0); Mean Corpuscular Hgb Conc 32.1 g/dL (32.0-36.0); Mean Corpuscular Volume 94.3 fL (80.0-100.0); Mean Platelet Volume 9.6 fL (9.4-12.4); Monocytes % (auto) 6.4 %; Neutrophils # (auto) 5.66 K/uL (1.40-6.50); Neutrophils % (auto) 60.2 %; Platelet Count 236 K/uL (130-400); RDW Coefficient of Variation 12.5 % (11.5-14.5); RDW Standard Deviation 43.7 fL (36.4-46.3); Red Blood Count 4.42 M/uL (4.20-5.40); White Blood Count 9.42 K/ul (4.8-10.8)
[2024-10-14 05:36] LABS: BUN Creatinine Ratio 26.4 (10-20); Calcium 9.1 mg/dl (8.6-10.3); Creatinine Clr Calc Pharmacy 40.8 ml/min; Magnesium 2.2 mg/dl (1.7-2.4)
[2024-10-14 05:43] LABS: Troponin I High Sensitivity 25.2 pg/ml (0-14)
[2024-10-14] MEDS: ACETAMINOPHEN 325 MG TAB PO PRN (06:50)
[2024-10-14] MEDS: ONDANSETRON INJ 2 MG/ML 2 ML VIAL IV STA ×2 (06:52→19:42)
[2024-10-14] MEDS: METOPROLOL TARTRATE 1 MG/ML VIAL IV STA (07:00)
[2024-10-14] MEDS: METOPROLOL SUCC 50MG EXT REL TAB PO SCH (07:38)
[2024-10-14] MEDS: ROSUVASTATIN CALCIUM 5 MG TAB PO SCH (07:41)
[2024-10-14] MEDS: PANTOprazole 40 MG TAB PO SCH (07:41)
[2024-10-14] MEDS: APIXABAN 2.5 MG TAB PO SCH (07:41)
--- NOTE | 2024-10-14 08:30 | Electrocardiogram Report ---
Test Reason : Blood Pressure : */* mmHG Vent. Rate : 133 BPM Atrial Rate : * BPM P-R Int : * ms QRS Dur : 80 ms QT Int : 312 ms P-R-T Axes : * -15 69 degrees QTcB Int : 464 ms Atrial fibrillation with rapid ventricular response Abnormal ECG When compared with ECG of 02-May-2024 03:35, Atrial fibrillation has replaced Electronic atrial pacemaker Vent. rate has increased by 48 bpm Confirmed by Adama Jacome ([id number]) on 10/14/2024 8:30:00 AM Referred By: REFERRED SELF Confirmed By: Adama Jacome
--- NOTE | 2024-10-14 09:54 | Cardiology Consultation ---
Date of Consultation October 14, 2024 Assessment & Plan (1) Atrial fibrillation with rapid ventricular response: (2) Paroxysmal atrial fibrillation: (3) Cardiac pacemaker in situ: (4) Hypertension: Plan 89-year-old female with paroxysmal atrial fibrillation historically, tach ybradycardia syndrome status post dual-chamber pacemaker presents with atrial fibrillation with rapid response, symptomatic with chest pain, lightheadedness, diaphoresis. Rapid heart rate response noted in hospital with little slowing with IV and oral metoprolol and, diltiazem. Echocardiogram demonstrates small hypertrophied and hyperdynamic left ventricle. Do not expect patient to tolerate atrial fibrillation with elevated response rates. Already on high dose metoprolol succinate at home. (100 mg) Discussed above in detail with patient Would recommend trial of antiarrhythmic therapy will begin IV amiodarone with conversion to p.o. Consider synchronized cardioversion if no spontaneous conversion. Will hold metoprolol succinate a.m. dose until reviewed Daily EKGs ordered Maintain telemetry, continue Eliquis History of Present Illness Reason for Consultation: Atrial fibrillation with rapid ventricular response Requesting Physician: Jd hospitalist Attending Physician: Nic Prabhakar MD History of Present Illness Patient is an 89-year-old female with ongoing cardiac concerns which include 1. Paroxysmal atrial fibrillation previously controlled in sinus with beta- jolene therapy 2. Tachybradycardia syndrome status post dual-chamber pacemaker insertion 3. Hypertension Patient presents this admission noting having lapsed into atrial fibrillation afternoon prior. Hooper heart racing and pounding with associated chest pain and lightheadedness and mild diaphoresis. Symptoms persisted and patient sought ER evaluation. Found to be in atrial fibrillation with rapid ventricular response. Heart rate slowed with AV aquiles blocking medication slowly still in fibrillation with rapid response this morning. Currently no chest pains or discomfort. Patient denies recent fevers chills or infections. No bleeding difficulties. Has been Compliant with medications without interruption in anticoagulation. No prior syncope or near syncope. Appetite and weight are stable. Allergies Allergy/AdvReac Type Severity Reaction Status Date / Time sulfamethoxazole Allergy Intermediate RASH Verified 01/20/24 09:58 trimethoprim Allergy Intermediate RASH Verified 01/20/24 09:58 venlafaxine [From Effexor] Allergy Intermediate Hives/Itchy Verified 01/20/24 09:58 /Rash Penicillins Allergy Mild Rash Verified 01/20/24 09:58 propoxyphene Allergy Mild Unknown Verified 01/20/24 09:58 Sulfa (Sulfonamide Allergy Mild Rash Verified 01/20/24 09:58 Antibiotics) amlodipine AdvReac Intermediate LEGS AND Verified 01/20/24 09:58 FEET GET TIGHT atorvastatin AdvReac Intermediate Inc Lft Verified 01/20/24 09:58 after Cholecystectomy enalapril AdvReac Intermediate tightness Verified 01/20/24 09:58 in ankles erythromycin base AdvReac Intermediate Vomiting Verified 01/20/24 09:58 fentanyl AdvReac Intermediate SEVERE Verified 01/20/24 09:58 N&V;DIZZY ondansetron [From Zofran] AdvReac Intermediate Nausea Verified 01/20/24 09:58 Quinolones AdvReac Intermediate N&V Verified 01/20/24 09:58 topiramate [From Topamax] AdvReac Intermediate "FINGERS Verified 01/20/24 09:58 NUMB" tramadol [From Ultram] AdvReac Intermediate Vomiting Verified 01/20/24 09:58 clindamycin AdvReac Mild Nausea Verified 01/20/24 09:58 codeine AdvReac Mild SICK TO Verified 01/20/24 09:58 STOMACH metronidazole AdvReac Unknown Unknown Verified 01/20/24 09:58 Home Medications Medication Instructions Recorded Confirmed Type apixaban 2.5 mg tablet (Eliquis) 2.5 mg PO BID 10/14/24 10/14/24 History metoprolol succinate 100 mg 100 mg PO DAILY 10/14/24 10/14/24 History tablet,extended release 24 hr pantoprazole 40 mg tablet,delayed 40 mg PO DAILY 10/14/24 10/14/24 History release rosuvastatin 5 mg tablet 5 mg PO DAILY 10/14/24 10/14/24 History terazosin 1 mg capsule 1 mg PO HS 10/14/24 10/14/24 History Patient History Medical History CKD (chronic kidney disease) stage 3, GFR 30-59 ml/min Prediabetes Hx of renal calculi Pacemaker medtronic- checked remotely once per month- last office check 2-3 mos ago- Dr Prabhu TRISTAN On anticoagulant therapy ELIQUIS DAILY Thoracic aortic aneurysm Mildly dilated on echo 02/2019 per cardiology, but not seen on 08/2019 echo at [facility]. Diverticulosis History of skin cancer Migraines Paroxysmal atrial fibrillation Hypertension Surgical History S/P cardiac pacemaker procedure Hx of colonoscopy History of ERCP with stone removal and stent placement 02/28 [place] History of cystoscopy W/ STONE EXTRACTION History of tooth extraction History of breast biopsy Status post trigger finger release History of Mohs micrographic surgery for skin cancer History of cholecystectomy 02/02/2020; [facility]; MAC #3, ETT 7.0. No complications. Family History Other Coronary heart disease No family history of adverse response to anesthesia Social History Smoking Status: Never smoker Second Hand Exposure: No; Do You Dip or Chew Tobacco: No; Hx Alcohol Use: Yes Alcohol type: hard liquor Hx Substance Use: No Preferred Language: Polish Communication Ability: Effective Visual Impairment: No Limitations Multimedia Assistant Required: No Beliefs That Will Affect Care: None marital status: / Current Living Situation: Alone How many Children do You have: 0 Other Information That Helps Us Care for You: No Feels Safe at Home: Yes Safety Concerns: Feels Safe At This Time Assistive Devices: Glasses Review of Systems Review of Systems: All systems reviewed & are unremarkable except as noted in HPI & below Results & Data Vital Signs (Past 12 Hours) Vital Signs Temp Pulse Pulse Resp BP BP Pulse Ox 10/14/24 07:15 104 H 10/14/24 07:00 106 H 18 100/71 94 10/14/24 06:00 127 H 20 106/63 93 10/14/24 04:00 96 H 20 110/74 92 10/14/24 03:16 36.8 C 107 H 18 100/73 92 10/14/24 02:48 36.8 C 95 H 17 92/72 L 93 10/14/24 02:39 80 17 90/72 L 90 10/14/24 02:00 101 H 17 109/84 98 10/14/24 00:00 120 H 17 107/80 98 10/13/24 23:58 106 H 10/13/24 22:51 137 H 20 148/98 H 96 10/13/24 22:00 132 H 18 123/87 94 O2 Del Method 10/14/24 07:15 10/14/24 07:00 Room Air 10/14/24 06:00 Room Air 10/14/24 04:00 Room Air 10/14/24 03:16 10/14/24 02:48 Room Air 10/14/24 02:39 Room Air 10/14/24 02:00 Room Air 10/14/24 00:00 Room Air 10/13/24 23:58 10/13/24 22:51 Room Air 10/13/24 22:00 Room Air Laboratory Results Laboratory Results - last 24 hr 10/13/24 10/13/24 10/13/24 20:05 21:36 22:32 WBC 7.81 RBC 4.66 Hgb 14.4 Hct 44.0 MCV 94.4 MCH 30.9 MCHC 32.7 RDW Std Deviation 43.5 RDW Coeff of Ling 12.6 Plt Count 249 MPV 9.5 Immature Gran % (Auto) 0.6 Neut % (Auto) 62.8 Lymph % (Auto) 29.1 [place] % (Auto) 6.0 Eos % (Auto) 0.9 Baso % (Auto) 0.6 Neut # (Auto) 4.90 Lymph # (Auto) 2.27 [place]ayer # (Auto) 0.47 Eos # (Auto) 0.07 Baso # (Auto) 0.05 Immature Gran # (Auto) 0.05 PT Cancelled 11.5 INR Cancelled 1.1 Sodium 138 Potassium 3.9 Chloride 102 Carbon Dioxide 27 Anion Gap 9 BUN 25 H Creatinine 0.89 Est Cr Clr Drug Dosing 36.1 eGFR 62.32 BUN/Creatinine Ratio 28.1 H Glucose 126 H Calcium 10.3 Magnesium 2.0 Total Bilirubin 0.3 AST 20 ALT 14 Alkaline Phosphatase 42 Troponin I High Sens 13.9 Total Protein 7.3 Albumin 4.8 Globulin 2.5 Albumin/Globulin Ratio 1.9 Lipase 32 TSH 2.848 Urine Color Urine Appearance Urine pH Ur Specific [place] Urine Protein Urine Glucose (UA) Urine Ketones Urine Blood Urine Nitrite Urine Bilirubin Urine Urobilinogen Ur Leukocyte Esterase Urine WBC (Auto) Urine RBC (Auto) U Hyaline Cast (Auto) U Epithel Cells (Auto) Urine Bacteria (Auto) Adenovirus (PCR) Not Detected B. pertussis DNA (PCR) Not Detected B.parapertussis DNA PCR Not Detected C. pneumoniae DNA (PCR) Not Detected Coronavirus OC43 (PCR) Not Detected Coronavirus HKU1 (PCR) Not Detected Coronavirus 229E (PCR) Not Detected SARS-CoV-2 (PCR) Not Detected Coronavirus NL63 (PCR) Not Detected Human Metapneumovir PCR Not Detected Influenza Type A (PCR) Not Detected Influenza Type B (PCR) Not Detected M. pneumoniae (PCR) Not Detected Parainfluenza 1 (PCR) Not Detected Parainfluenza 2 (PCR) Not Detected Parainfluenza 3 (PCR) Not Detected Parainfluenza 4 (PCR) Not Detected RSV (PCR) Not Detected Entero/Rhino (PCR) Not Detected 10/13/24 10/14/24 23:01 04:52 WBC 9.42 RBC 4.42 Hgb 13.4 Hct 41.7 MCV 94.3 MCH 30.3 MCHC 32.1 RDW Std Deviation 43.7 RDW Coeff of Ling 12.5 Plt Count 236 MPV 9.6 Immature Gran % (Auto) 0.6 Neut % (Auto) 60.2 Lymph % (Auto) 31.5 [place]ayer % (Auto) 6.4 Eos % (Auto) 0.8 Baso % (Auto) 0.5 Neut # (Auto) 5.66 Lymph # (Auto) 2.97 [place] # (Auto) 0.60 H Eos # (Auto) 0.08 Baso # (Auto) 0.05 Immature Gran # (Auto) 0.06 PT INR Sodium 138 Potassium 4.0 Chloride 104 Carbon Dioxide 28 Anion Gap 6 BUN 19 Creatinine 0.72 Est Cr Clr Drug Dosing 40.8 eGFR 80.37 BUN/Creatinine Ratio 26.4 H Glucose 114 H Calcium 9.1 Magnesium 2.2 Total Bilirubin AST ALT Alkaline Phosphatase Troponin I High Sens 25.2 H D Total Protein Albumin Globulin Albumin/Globulin Ratio Lipase TSH Urine Color Yellow Urine Appearance Clear Urine pH 6.5 Ur Specific [place] 1.009 Urine Protein Negative Urine Glucose (UA) Negative Urine Ketones Negative Urine Blood Negative Urine Nitrite Negative Urine Bilirubin Negative Urine Urobilinogen Negative Ur Leukocyte Esterase Trace H Urine WBC (Auto) 0-5 Urine RBC (Auto) 0-2 U Hyaline Cast (Auto) 0-2 U Epithel Cells (Auto) 0-2 Urine Bacteria (Auto) None Seen Adenovirus (PCR) B. pertussis DNA (PCR) B.parapertussis DNA PCR C. pneumoniae DNA (PCR) Coronavirus OC43 (PCR) Coronavirus HKU1 (PCR) Coronavirus 229E (PCR) SARS-CoV-2 (PCR) Coronavirus NL63 (PCR) Human Metapneumovir PCR Influenza Type A (PCR) Influenza Type B (PCR) M. pneumoniae (PCR) Parainfluenza 1 (PCR) Parainfluenza 2 (PCR) Parainfluenza 3 (PCR) Parainfluenza 4 (PCR) RSV (PCR) Entero/Rhino (PCR)
[2024-10-14] MEDS ORDERED: AMIODARONE IV BOLUS & DRIP IV STA (09:57)
[2024-10-14] MEDS ORDERED: STAT IV Infusion **Titration per Protocol STA (09:57)
[2024-10-14] MEDS ORDERED: 0.2 MICRON FILTER SET 1 EACH IV STA (09:57)
[2024-10-14] MEDS: FAMOTIDINE 20MG IV PUSH 20 MG/5 ML SYR IV SCH (10:12)
[2024-10-14] MEDS: AMIODARONE / D5W 150 MG/100 ML BAG IV STA (10:15)
[2024-10-14] MEDS: AMIODARONE / D5W 360 MG/200 ML BAG IV ONE (10:29)
[2024-10-14] MEDS: DICYCLOMINE HCL 10 MG CAP PO ONE (15:24)
[2024-10-14] MEDS: AMIODARONE / D5W 360 MG/200 ML BAG IV SCH (16:04)
[2024-10-14] MEDS: SUMAtriptan succinate 100 MG TAB PO PRN (18:37)
[2024-10-14] MEDS ORDERED: TERAZOSIN HCL 1 MG CAP PO SCH (21:00)
--- OUTSIDE RECORDS SUMMARY | 2024-10-15 04:28 | External Medical Summary | Summary of Care ---
Author Name Unknown Organization [facility] Address [address] [place] [address] Phone [phone] Care Team Providers Care Ham Marker Name Role Phone Preston Villagran MD Primary Care Provider + Reason for Referral * (Within 24 hrs (call dept; emergent)) - Authorized Specialty Diagnoses / Procedures Referred By Contac t Referred To Contact Radiology Diagnoses RUQ abdominal pain Epigastric pain S/P laparoscopic cholecystectomy Procedures US ABDOMEN COMPLETE Susana Brown PA-C [address] [facility] [place] [address] Phone: tel: fax: Referral ID Status Reason Start Date Expiration Date V isits Requested Visits Authorized [id number] Authorized 09/26/2024 999 999 Reason for Visit * Reason Comments Acute Patient c/o bilatera l mid-abdominal pain that has been intermittently present since Tuesday/Tuesday. Originally started in upper right abdomen. Pt reported she no longer has a gallbladder. Currently rates her pain a 7/10. Denies any n/v. Had a BM this morning. Has been taking tylenol to try to relieve her pain. Reports she has also felt fatigued. Encounter Details Date Type Department Care Team (Late st Contact Info) Description 09/26/2024 10:40 AM EST Office Visit General Internal Medicine [facility] [place] [address] [facility] [place] [address] Susana Brown PA-C [address] [facility] [place] [address] RUQ abdominal pain*; Epigastric pain; S/P laparoscopic cholecystectomy; Gastroesophageal reflux disease without esophagitis Allergies Active Allergy Reactions Criticality Noted Date Comments Atorvastatin High 04/24/2020 Inc lft after cholecystectomy Other Reaction(s): Inc Lft after Cholecystectomy Bactrim Rash 04/26/2011 Clindamycin Low 01/21/2021 Other reaction(s): Nausea Codeine Nausea/vomiting 04/26/2011 Propoxyphene N-Acetaminophen Nausea/vomiting 04/26/2011 dizziness Venlafaxine Hives,Itching,Cedrick h 09/09/2015 Erythromycin Abdominal pain 04/26/2011 Erythromycin Base High 12/01/2021 Other reaction(s): Vomiting Fentanyl High 03/01/2019 Other reaction(s): SEVERE N&V;DIZZY Other Reaction(s): SEVERE N&V;DIZZY Metronidazole Hives,Rash 04/26/2011 Ondansetron High 01/21/2021 Other reaction(s): Nausea Penicillins Hives 04/26/2011 Propoxyphene Unknown Low 03/01/2019 Quinolones Low 12/01/2021 Other reaction(s): N&V Sulfa Antibiotics Low 10/18/2011 Rash on chest Other reaction(s): Rash Topamax 04/26/2011 Caused fingers to be numb and tingle Topiramate High 01/21/2021 Other reaction(s): "FINGERS NUMB" Tramadol High 01/21/2021 Other reaction(s): Vomiting Trimethoprim 03/01/2019 Other reaction(s): RASH Vasotec Edema Other 04/26/2011 Bilateral lower legs, ankles documented as of this encounter (statuses as of 09/26/2024) Medications VITAMIN D 1000 UNITS PO CAPSIndications: Vitamin D deficiency 2 capsules daily 60 Cap 11 2 Active denosumab (PROLIA) 60 MG/ML injection Twice yearly 1 Syringe 8 Active Acetaminophen 325 MG Oral Tablet Take 2 Tablets by mouth every 6 hours as needed for Pain, Moderate. Active Clindamycin HCl 150 MG Oral Capsule (Cleocin) 2 Active Dicyclomine HCl 10 MG Oral CapsuleIndicatio ns:Abdominal cramping Take 1 Capsule by mouth 4 times a day as needed for Cramping. for abdominal pain 120 Capsule 11 4 Active Apixaban 2.5 MG Oral Tablet (Eliquis)Indicat ions:HTN, goal below 140/90,A-fib (HCC) TAKE 1 TABLET BY MOUTH TWICE DAILY 180 Tablet 3 4 Active Metoprolol Succinate ER 100 MG Oral Tablet Extended Release 24 Hour (Toprol XL) Take 1 Tablet by mouth in the morning. 90 Tablet 3 4 Active Terazosin HCl 1 MG Oral Capsule (Hytrin)Indicati ons:HTN, goal below 140/90,Paroxysma l atrial fibrillation (HCC) TAKE 1 CAPSULE BY MOUTH AT BEDTIME 90 Capsule 3 4 Active Rosuvastatin Calcium 5 MG Oral Tablet (Crestor)Indicat ions:Dyslipidemi a, goal LDL below 130 TAKE 1 TABLET BY MOUTH IN THE MORNING 90 Tablet 3 4 Active SUMAtriptan Succinate 100 MG Oral TabletIndication s:Migraine without aura and without status migrainosus, not intractable TAKE 1 TABLET BY MOUTH DAILY NEEDED FOR MIGRAINE(S) 36 Tablet 1 4 Active Pantoprazole Sodium 40 MG Oral Tablet Delayed Release (Protonix)Indica tions:Gastroesop hageal reflux disease without esophagitis Take 1 Tablet by mouth in the morning. 30 Tablet 2 4 Active Omeprazole 40 MG Oral Capsule Delayed Release (PriLOSEC) TAKE 1 CAPSULE BY MOUTH DAILY 1 HOUR BEFORE THE FIRST MEAL OF THE DAY 90 Capsule 1 4 09/26/20 24 Discontin ued(Medic ation/Dos e Changed) Gabapentin 100 MG Oral Capsule (Neurontin)Indic ations:RLS (restless legs syndrome) Take 1 Capsule by mouth at bedtime. In 3 days increase to 2 tab and in 3 days increase to 3 tab 90 Capsule 5 4 09/26/20 24 Discontin ued(Medic ation List Clean Up) documented as of this encounter (statuses as of 09/26/2024) Active Problems Problem Noted Date Diagnosed Date Thyroid nodule 07/22/2022 Right kidney stone 05/05/2022 History of colonic diverticulitis 01/05/2022 Chronic kidney disease, stage 3a 12/15/2020 Overview: Per CKD protocol Tachy-michael syndrome 07/28/2020 RLS (restless legs syndrome) 07/28/2020 S/P placement of cardiac pacemaker 07/24/2020 Paroxysmal atrial fibrillation 02/26/2020 Prediabetes 07/16/2019 Overview: Per Prediabetes protocol Raynaud phenomenon 11/15/2018 Senile osteoporosis 10/18/2018 History of nonmelanoma skin cancer 03/06/2018 Overview (03/06/2018): BCC right faith 08/23 Enlarged thoracic aorta 11/17/2016 Chronic migraine 10/06/2015 Lumbar degenerative disc disease 10/21/2014 GERD (gastroesophageal reflux disease) 2 Overview (03/04/2019): 02/23-EGD-nml ,2mm gastric polyp Gastroparesis 08/21/2012 HTN, goal below 140/90 04/26/2011 Mixed hyperlipidemia 04/26/2011 documented as of this encounter (statuses as of 09/26/2024) Resolved Problems Problem Noted Date Diagnosed Date Resolved Date Protein-calorie malnutrition 06/06/2020 12/01/2020 Headache 02/11/2015 06/08/2017 Thoracic aortic aneurysm 06/04/2011 Overview (06/04/2011): Echo needed to follow Diverticulitis of colon 07/2018 documented as of this encounter (statuses as of 09/26/2024) Immunizations Name Administration Dates Next Due COVID-19 mRNA, LNP-s, No Pre serve, 2-Dose Series (Frogdice) 08/07/2021,01/14/2021,12/17/2020 COVID-19, LNP-s, No Preserve , Jose Juan-sucrose, Ages 12+ (Frogdice) 02/24/2022 COVID-19, MRNA-LNP, PF, 30 M CG/0.3 mL, 12 YRS AND ABOVE, IM (PFIZER-Comirnaty) 08/04/2023 Covid-19, Mrna, Lnp-s, Pf, B ivalent, 30 Mcg, IM, 12 yrs and above (Pfizer) 10/11/2022 Pneumococcal Conjugate Vacc, 13 Valent (Prevnar) 11/17/2016 Pneumococcal Polysaccharide PPV23 (Pneumovax) 11/21/2001 Season Influenza, Quad, PF, Adjuvanted, 65+ Yrs, IM (FLUAD) 07/31/2021,08/11/2020 Seasonal Influenza Vac., MDV , IM, 0.5 mL (Fluzone) 09/03/2014,08/21/2013,08/03/2012,07/09 Seasonal Influenza Virus Vac cine, Unspecified Formulation 07/18/2019,08/07/2018,08/09/2017,07/09,09/03/2014,08/21/2013,08/03/20 12,07/27/2011 Seasonal Influenza, High Dos e, Trivalent, PF, IM (Fluzone HD) 07/11/2024 Seasonal Influenza, PF, 6 M & above, IM , (FluLaval or Fluzone) 07/04/2023,08/07/2018,08/09/2017 Seasonal Influenza, Quadriva lent Hd (Fluzone Hd) 07/29/2022,08/11/2020 Seasonal Influenza, Quadriva lent Hd, 65+ Yrs 07/04/2023,06/20/2023,07/29/2022,04/2021,07/31/2021 Seasonal Influenza, Quadriva lent, No Preserve, IM 08/04/2016,08/22/2015 08/04/2017 Seasonal Influenza, Trivalen t, Adjuvanted, 65+ YRS, PF, (Fluad) 07/18/2019 TDAP (age 10 and older)(Boostrix) 08/23/2023, Varicella Zoster Vaccine (Adult) 12/08/2008 Zoster Vaccine Recombinant (Shingrix) 03/21/2020 ,01/08/2020 documented as of this encounter Social History Tobacco Use Types Packs/Day Years Used Date Smoking Tobacco: Never Smokeless Tobacco: Never Alcohol Use Standard Drinks/Week Comments Yes 0 (1 standard drink = 0.6 oz pur e alcohol) very little PHQ-2 Answer Date Recorded PHQ Adult Total Score 4 05/25/2023 Hunger Vital Sign Answer Date Recorded Within the past 12 months, y ou worried that your food would run out before you got the money to buy more. Never true 05/25/20 23 Within the past 12 months, t he food you bought just didn't last and you didn't have money to get more. Never true 05/25/2023 Childcare Answer Date Recorded Do you feel overwhelmed with taking care of a child, family member or friend? No 05/25/2023 Does your family need help f inding childcare? (Household - for ages 0-17 years) Not on file 05/25/2023 Clothing Answer Date Recorded Have you been unable to get clothing when it was really needed? No 05/25/2023 Is your family able to get c lothes or diapers when needed? (Household - for ages 0-17 years) Not on file 05/25/2023 Personal Safety Answer Date Recorded Do you feel unsafe or have concerns for your saf ety? No 05/25/2023 Do you have concerns for you r family's safety? (Household - for ages 0-17 years) Not on file 05/25/2023 Utilities Answer Date Recorded Do you have trouble paying y our heating, water, or electric bill? (Adult - for ages 18 years and over) Not on file 06/03/2024 Is your family able to pay t he heat, water, or electric bill? (Household - for ages 0-17 years) Not on file 06/03/2024 Does your family have access to good internet? (Household - for ages 0-17 years) Not on file 06/03/2024 Employment Status Answer Date Recorded Are you unemployed or without regular income? No 05/25/2023 Does the household have a re gular source of income? (Household - for ages 0-17 years) Not on file 05/25/2023 Social Connections Answer Date Recorded How often do you feel lonely or isolated from those around you? (Adult - for ages 18 years and over) Not on file 06/03/2024 Financial Resource Strain Answer Date R ecorded Do you have any trouble payi ng for your medications, or do you think you might in the future? No 05/25/2023 Does your family have troubl e paying for medicine? (Household - for ages 0-17 years) Not on file 05/25/2023 Transportation Needs Answer Date Record ed READ ONLY Do you have troubl e getting a ride to medical visits or work? Never True 05/25/2023 Does your family have a hard time getting a ride to doctors visits? (Household - for ages 0-17 years) Not on file 05/25/2023 Has lack of transportation k ept you from medical appointments, meetings, work, or from getting things needed for daily living? Check all that apply. (Adult - for ages 18 years and over) Not on file 05/25/2023 Do you (or your family) have trouble finding or paying for a ride (transportation)? (Household - for ages 0-17 years) Not on file 05/25/2023 Housing Stability Answer Date Recorded Do you currently live in a s helter or have no steady place to sleep at night? No 05/25/2023 READ ONLY Do you think you a re at risk of becoming homeless? No 05/25/2023 Does your family worry about paying for your home or becoming homeless? (Household - for ages 0-17 years) Not on file 0 05/25/2023 Are you homeless or worried that you might be in the future? (Adult - for ages 18 years and over) Not on file Are you (or your family) kayla eless or worried that you might be in the future? (Household - for ages 0-17 years) Not on file Food Insecurity Answer Date Recorded Do you need food for this week? No 05/25/2023 Are you able to get enough f ood for your family? (Household - for ages 0-17 years) Not on file 05/25/2023 Does your family need food t his week? (Household - for ages 0-17 years) Not on file 05/25/2023 Do you always have enough fo od for your family? (Household - for ages 0-17 years) Not on file 05/25/2023 Comments No Sex and Gender Information Value Date Recorded Sex Assigned at Female 02/22/2019 11:00 AM EDT Legal Sex Female 7:21 AM EST Gender Identity Female 02/22/2019 11:00 AM EDT Sexual Orientation Straight 05/25/2023 11 :01 AM EDT documented as of this encounter Last Filed Vital Signs Vital Sign Reading Time Taken Comments Blood Pressure 124/78 09/26/2024 10:38 AM EST Pulse 74 09/26/2024 10:38 AM EST Temperature 36 C (96.8 F) 09/26/2024 10:38 AM EST Respiratory Rate - - Oxygen Saturation 99% 09/26/2024 10:38 AM EST Inhaled Oxygen Concentration - - Weight 52.8 kg (116 lb 6.4 oz) 09/26/2024 10:38 AM EST Height - - Body Mass Index 22.73 07/11/2024 11:31 AM EDT documented in this encounter Progress Notes * Susana Brown PA-C - 09/26/2024 10:49 AM EST Images from the original note were not included. History of Present Illness Alison Xiong is a 89 year old female that presents for Acute (Patient c/o bilateral mid-abdominal pain that has been intermittently present since Tuesday/Tuesday. Originally started in upper right abdomen. Pt reported she no longer has a gallbladder. Currently rates her pain a 7/10. Denies any n/v. Had a BM this morning. Has been taking tylenol to try to relieve her pain. Reports she has also felt fatigued. ) Pt denies any recent changes to meds or diet. Takes omeprazole daily--has been on for years. Pt reports she believes she had more stones removed from bile duct after cholecystectomy was completed. Abdominal Pain This is a new problem. The current episode started in the past 7 days. The problem occurs constantly. The problem has been unchanged. The pain is located in the periumbilical region. The quality of the pain is aching. The abdominal pain radiates to the epigastric region. Associated symptoms includediarrhea. Pertinent negatives include no belching, dysuria, fever, flatus, hematuria, nausea or vomiting. The pain is aggravated by eating. Relieved by: Tylenol. She has tried acetaminophen for the symptoms. The treatment provided mild relief. Her past medical history is significant for abdominal surgery (cholecystectomy over 5 years ago), GERD and PUD. Review of Systems: See HPI for pertinent positives. All other review of systems is negative. Physical Exam Vitals: 09/26/24 1038 Temp: 96.8 F (36 C) Pulse: 74 SpO2: 99% BP: 124/78 Physical Exam Constitutional: General: She is not in acute distress. Appearance: She is not diaphoretic. HENT: Right Ear: Tympanic membrane, ear canal and external ear normal. Left Ear: Tympanic membrane, ear canal and external ear normal. Mouth/Throat: Mouth: Mucous membranes are moist. Pharynx: Oropharynx is clear. Cardiovascular: Rate and Rhythm: Normal rate and regular rhythm. Pulmonary: [place]: Pulmonary effort is normal. Breath sounds: Normal breath sounds. Abdominal: General: Bowel sounds are normal. Palpations: Abdomen is soft. Tenderness: There is abdominal tenderness in the right upper quadrant and epigastric area. There isguarding. There is no rebound. Musculoskeletal: Cervical back: Normal range of motion and neck supple. Skin: General: Skin is warm and dry. Neurological: General: No focal deficit present. Mental Status: She is alert. Mental status is at baseline. I have reviewed the following results: Assessment and Plan RUQ abdominal pain Stat US of RUQ to eval for common bile duct stone. Labs today as well to eval for infection and liver inflammation. - US ABDOMEN COMPLETE; Future - COMPREHENSIVE METABOLIC PANEL; Future - CBC WITH WBC DIFFERENTIAL AND ANEMIA REFLEX WORKUP; Future Epigastric pain See above. - US ABDOMEN COMPLETE; Future - COMPREHENSIVE METABOLIC PANEL; Future - CBC WITH WBC DIFFERENTIAL AND ANEMIA REFLEX WORKUP; Future S/P laparoscopic cholecystectomy - US ABDOMEN COMPLETE; Future Gastroesophageal reflux disease without esophagitis Stop Prilosec. Will switch pt to Protonix to see if this gives better relief of symptoms. - Pantoprazole Sodium 40 MG Oral Tablet Delayed Release (Protonix); Take 1 Tablet by mouth in the morning. Wrap-Up Will contact pt with test results when available. Will plan to have her return to office in 2 weeksto recheck how she's doing with the Protonix, but will f/up sooner if needed. Follow Up: Return in about 2 weeks (around 10/10/2024) for Return with AP, Labs Today. | For: Returnwith AP, Labs Today Time: I spent a total of 20-29 minutes (exact time 26 mins) on the date of service in preparation, delivery, and documentation of the care provided to Alison Xiong excluding any time spent in the performance of separately billed services. documented in this encounter Nursing Notes * Nandini Reynolds, MED ASSIST - 09/26/2024 10:42 AM EST Chief Complaint Patient presents with Acute Patient c/o bilateral mid-abdominal pain that has been intermittently present since Tuesday/Tuesday. Originally started in upper right abdomen. Pt reported she no longer has a gallbladder. Currently rates her pain a 05/16. Denies any n/v. Had a BM this morning. Has been taking tylenol to try to relieve her pain. Reports she has also felt fatigued. documented in this encounter Plan of Treatment Upcoming Encounters Date Type Department Care Team (Late st Contact Info) Description 09/28/2024 2:00 PM EST Imaging Radiology [facility] [facility] [address] [facility] [place] [address] 10/08/2024 12:30 PM EST Office Visit Otolaryngology [facility] [place] [address] Jt Flannery DO [address] [place] [address] Rosa Rubi Au.D. [address] [place] [address] 10/10/2024 11:20 AM EST Office Visit General Internal Medicine [facility] [address] [facility] [place] [address] Susana Brown PA-C [facility] [address] 10/15/2024 12:00 PM EST Office Visit General Internal Medicine [facility] [address] [facility] [place], [place] [address] Preston Villagran MD [address] [facility] [place] [address] 10/18/2024 11:00 AM EST Office Visit Cardiology, [facility] [address] [facility] [place] [address] Iraj Arevalo PA-C [address] [place] [address] 02/05/2025 10:00 AM EDT Office Visit Rheumatology [facility] [address] [place] [address] Adeola Chavis CRNP [address] [place] [address] Pending Results Name Type Priority Associated Diagnoses Date /Time COMPREHENSIVE METABOLIC PANEL Lab Routine RUQ abdominal pain Epigastric pain 09/26/2024 11:17 AM EST CBC WITH WBC DIFFERENTIAL AND ANEMIA REFLEX WORKUP Lab Routine RUQ abdominal pain Epigastric pain 09/26/2024 11:17 AM EST Scheduled Orders Name Type Priority Associated Diagnoses Orde r Schedule US ABDOMEN COMPLETE Medical Imaging STAT RUQ abdominal pain Epigastric pain S/P laparoscopic cholecystectomy Expected: 09/26/2024, Expires: 10/26/2025 COMPREHENSIVE METABOLIC PANEL Lab Routine RUQ abdominal pain Epigastric pain Expected: 09/26/2024 (Approximate), Expires: 09/26/2025 CBC WITH WBC DIFFERENTIAL AND ANEMIA REFLEX WORKUP Lab Routine RUQ abdominal pain Epigastric pain Expected: 09/26/2024 (Approximate), Expires: 09/26/2025 Health Maintenance Due Date Last Done Comments Adult Wellness Visit 05/25/2024 05/25/2023 Depression Screening 05/25/2024 05/25/2023 DXA Scan 06/09/2024 06/09/2022, 080 01/2022, 05/21/2020, Additional history exists CKD PHOS USE SMARTSET 21148 08/11/202403/2023, 07/29/2022, 06/30/2021 HbA1c 08/11/2024 08/11/2023, 01/05, 07/29/2022, Additional history exists COVID-19 Vaccine ( season) 2024 08/04/2023, 10/11/2022, 02/24/2022, Additional history exists Postponed from 07/08/2024 (Unavailable) Albumin/Creatinine Ratio 02/15/2025 024, 01/21/2023, 01/06/2022 CKD HGB USE SMARTSET 49214 06/21/202506/21, 06/21/2024, 03/07/2024, Additional history exists DTap/Tdap Vaccines (3 - Td or Tdap) 08/23/2033 08/23/2023, 08/21/2012 Pneumococcal Vaccine: 65+ Years Completed 11/17/2016, 11/21/2001 Zoster Vaccines Completed 03/21/2020, 01/2020, 12/08/2008 Influenza Vaccine (FLU shot) Completed 07/11/2024, 07/04/2023, 07/04/2023, Additional history exists VITAMIN D LEVEL ONCE IN A LIFETIME-USE SMARTSET# [id number] Completed 07/11/2024, 02/14/2024, 08/11/2023, Additional history exists HPV (Gardasil) Vaccine Aged Out No lo nger eligible based on patient's age to complete this topic Hepatitis B Vaccine Aged Out No longe r eligible based on patient's age to complete this topic MENINGOCOCCAL (MENACTRA/MENVEO) Aged Out No longer eligible based on patient's age to complete this topic documented as of this encounter Medical Devices Implanted Type Area Speech And Drama Teacher Device Identifier Shelf Expiration Date Model / Serial / Lot Lens Intraoc 21.0 - [id number] - [id number] Implanted:Qty: 1 on 02/08/2017 by Markell Montana MD at [facility] Right: Eye [employer] 07/07/2021 [id number] / [id number] / Lens Intraoc 22.0 - [id number] - [id number] Implanted:Qty: 1 on 02/22/2017 by Markell Montana MD at [facility] Left: Eye [employer] 08/06/2021 [id number] / [id number] / [id number] documented as of this encounter Visit Diagnoses Diagnosis RUQ abdominal pain- Primary Abdominal pain, right upper quadrant Epigastric pain Abdominal pain, epigastric S/P laparoscopic cholecystectomy Other postprocedural status Gastroesophageal reflux disease without esophagitis Esophageal reflux documented in this encounter Advance Directives * Full Code (Latest Code Status on File) Date Activated Date Inactivated Comments 04/28/2022 2:38 PM 04/28/2022 7:50 PM This order r eflects the patients wishes and were consensually agreed upon. Question Answer Comments Discussion of Advance Directives occurred with: Not Discussed * Full Code Date Activated Date Inactivated Comments 04/28/2022 1:53 PM 04/28/2022 2:38 PM This order r eflects the patients wishes and were consensually agreed upon. Question Answer Comments Discussion of Advance Directives occurred with: Not Discussed * Full Code Date Activated Date Inactivated Comments 02/22/2017 11:17 AM 02/23/2017 11:55 AM This order reflects the patients wishes and were consensually agreed upon. * Full Code Date Activated Date Inactivated Comments 02/08/2017 12:00 PM 02/08/2017 6:31 PM This order re flects the patients wishes and were consensually agreed upon. Care Teams Ham Marker Relationship Specialty Start Date End Date Preston Villagran MD [address] [place] [id number] PCP - General Internal Medicine 01/05/22 documented as of this encounter
--- OUTSIDE RECORDS SUMMARY | 2024-10-15 04:28 | External Medical Summary | Summary of Care ---
Author Name Unknown Organization [facility] Address [address] [place] [address] Phone [phone] Care Team Providers Care Tar Leveler Name Role Phone Preston Villagran MD Primary Care Provider + Reason for Visit * Reason Onset Date Comments Test Results 03/16/2024 Encounter Details Date Type Department Care Team (Late st Contact Info) Description 03/16/2024 Telephone General Internal Medicine [facility] [place] [address] [place] [address] Preston Villagran MD [address] [place] [address] Test Results Allergies Active Allergy Reactions Criticality Noted Date [...] as of this encounter (statuses as of 09/03/2024) Medications Medication Sig Dispensed Refills Start Date End Date Status VITAMIN D 1000 UNITS PO CAPSIndications:V itamin D deficiency 2 capsules daily 60 Cap 11 2 Active denosumab (PROLIA) 60 MG/ML injection Twice yearly 1 Syringe 8 Active Acetaminophen 325 MG Oral Tablet Take 2 Tablets by mouth every 6 hours as needed for Pain, Moderate. Active Clindamycin HCl 150 MG Oral Capsule (Cleocin) 2 Active Dicyclomine HCl 10 MG Oral CapsuleIndication s:Abdominal cramping Take 1 Capsule by mouth 4 times a day as needed for Cramping. for abdominal pain 120 Capsule 11 4 Active Apixaban 2.5 MG Oral Tablet (Eliquis)Indicati ons:HTN, goal below 140/90,A-fib (HCC) TAKE 1 TABLET BY MOUTH TWICE DAILY 180 Tablet 3 4 Active Omeprazole 40 MG Oral Capsule Delayed Release (PriLOSEC) TAKE 1 CAPSULE BY MOUTH DAILY 1 HOUR BEFORE THE FIRST MEAL OF THE DAY 90 Capsule 3 3 07/02/20 24 Discontinued Terazosin HCl 1 MG Oral Capsule (Hytrin)Indicatio ns:HTN, goal below 140/90,Paroxysmal atrial fibrillation (HCC) TAKE 1 CAPSULE BY MOUTH AT BEDTIME 90 Capsule 3 3 07/18/20 24 Discontinued Metoprolol Tartrate 25 MG Oral Tablet (Lopressor)Indica tions:Paroxysmal atrial fibrillation (HCC),Tachy-michael syndrome (HCC),Cardiac pacemaker in situ,HTN, goal below 140/90 TAKE 2 TABLETS BY MOUTH IN THE MORNING TAKE 1 TABLET BY MOUTH IN THE EVENING 270 Tablet 3 3 04/16/20 24 Discontinued SUMAtriptan Succinate 100 MG Oral TabletIndications :Migraine without aura and without status migrainosus, not intractable TAKE 1 TABLET BY MOUTH DAILY NEEDED FOR MIGRAINE(S) 36 Tablet 1 3 07/23/20 24 Discontinued Rosuvastatin Calcium 5 MG Oral Tablet (Crestor)Indicati ons:Dyslipidemia, goal LDL below 130 Take 1 Tablet by mouth in the morning. 90 Tablet 3 3 07/19/20 24 Discontinued Famotidine 40 MG Oral Tablet (Pepcid) Take 1 Tablet by mouth in the morning. 30 Tablet 2 4 05/11/20 24 Discontinued(Pat ient preference/disco ntinuation) Gabapentin 100 MG Oral Capsule (Neurontin)Indica tions:RLS (restless legs syndrome) Take 1 Capsule by mouth at bedtime. 4 04/16/20 24 Discontinued(Pat ient preference/disco ntinuation) documented as of this encounter (statuses as of 09/03/2024) Active Problems Problem Noted Date Diagnosed Date [...] 10/18/2018 History of nonmelanoma skin cancer 03/06/2018 Overview: BCC right confucianism 08/23 Enlarged thoracic aorta 11/17/2016 Chronic migraine 10/06/2015 Lumbar degenerative disc disease 10/21/2014 GERD (gastroesophageal reflux disease) 2 Overview: 02/23-EGD-nml ,2mm gastric polyp Gastroparesis 08/21/2012 HTN, goal below 140/90 04/26/2011 Mixed hyperlipidemia 04/26/2011 documented as of this encounter (statuses as of 09/03/2024) Resolved Problems Problem Noted Date Diagnosed Date Resolved Date Protein-calorie malnutrition 06/06/2020 12/01/2020 Headache 02/11/2015 06/08/2017 Thoracic aortic aneurysm 06/04/2011 Overview: Echo needed to follow Diverticulitis of colon 07/2018 documented as of this encounter (statuses as of 09/03/2024) Immunizations Name Administration Dates Next Due COVID-19 mRNA, LNP-s, No Pre serve, 2-Dose Series (TrunqShow) 08/07/2021,01/14/2021,12/17/2020 COVID-19, LNP-s, No Preserve , Jose Juan-sucrose, Ages 12+ (TrunqShow) 02/24/2022 COVID-19, MRNA-LNP, 23-24, P F, 30 MCG/0.3 mL, 12 YRS AND ABOVE, IM (AirClic-Comirnaty) 08/04/2023 Covid-19, Mrna, Lnp-s, Pf, B ivalent, 30 Mcg, IM, 12 yrs and above (TrunqShow) 10/11/2022 Pneumococcal Conjugate Vacc, 13 Valent (Prevnar) [...] Seasonal Influenza, Quadriva lent Hd, 65+ Yrs 07/04/2023,06/20/2023,07/29/2022,10/04/2021,07/31/2021 Seasonal Influenza, Quadriva lent, No Preserve, IM [...] ages 0-17 years) Not on file 05/25/2023 Sex and Gender Information Value Date Recorded Sex Assigned at Female 02/22/2019 11:00 AM EDT Gender Identity Female 02/22/2019 11:00 AM EDT Sexual Orientation Straight 05/25/2023 11 :01 AM EDT Job Start Date Occupation Industry Not on file Not on file Not on file documented as of this encounter Miscellaneous Notes * Telephone Encounter - Nora Hoffman LPN - 09/03/2024 4:52 PM EDT Called and spoke with pt. Informed her that she should have both done. They are not the looking at the same thing * Telephone Encounter - Chriss Mckinney OSA - 09/03/2024 10:10 AM EDT Patient calling in requesting a return call regarding whether she needs to have both the US and dexa scan(scheduled at [facility]) completed. Please advise. * Telephone Encounter - Andra Pineda MED MICHELL - 03/16/2024 3:40 PM EDT Patient aware and verbalized understanding * Telephone Encounter - Andra Pineda MED ASSIST - 03/16/2024 3:38 PM EDT ----- Message from Preston Villagran MD sent at 03/15/2024 8:36 AM EDT ----- NODULES Unchanged in neck, recheck u/s 6 months to follow documented in this encounter Plan of Treatment Upcoming Encounters Date Type Department Care Team (Late st Contact Info) Description 09/17/2024 10:30 AM EST Imaging Radiology [facility] 2nd [facility] [address] [place] [address] 10/08/2024 12:30 PM EST Office Visit Otolaryngology [facility] [address] [place] [address] Jt Flannery DO [address] [place] [address] Rosa Rubi Au.D. [address] [place] [address] 10/15/2024 12:00 PM EST Office Visit General Internal Medicine [facility] [place] [address] [facility] [place] [address] Preston Villagran MD [address] [facility] [place] [address] 10/18/2024 11:00 AM EST Office Visit Cardiology, [facility] [address] [place] [address] Iraj Arevalo PAJefC [address] [place] [address] 02/05/2025 10:00 AM EDT Office Visit Rheumatology [facility] [address] [facility] [place] [address] Adeola Chavis CRNP [address] [place] [address] Health Maintenance Due Date Last Done Comments Adult Wellness Visit 05/25/2024 05/25/2023 Depression Screening 05/25/2024 05/25/2023 DXA Scan 06/09/2024 06/09/2022, 01/2022, 05/21/2020, Additional history exists COVID-19 Vaccine ( season) 2024 08/04/2023, 10/11/2022, 02/24/2022, Additional history exists CKD PHOS USE SMARTSET 45664 08/11/202403/2023, 07/29/2022, 06/30/2021 HbA1c 08/11/2024 08/11/2023, 01/05, 07/29/2022, Additional history exists Albumin/Creatinine Ratio 02/15/2025 024, 01/21/2023, 01/06/2022 CKD HGB USE SMARTSET 09190 06/21/202506/21, 06/21/2024, 03/07/2024, Additional history exists DTap/Tdap Vaccines (3 - Td or Tdap) 08/23/2033 08/23/2023, 08/21/2012 Pneumococcal Vaccine: 65+ Years Completed 11/17/2016, 11/21/2001 Zoster Vaccines Completed 03/21/2020, 01/2020, 12/08/2008 Influenza Vaccine (FLU shot) Completed 02/2024, 07/04/2023, 07/04/2023, Additional history exists VITAMIN D LEVEL ONCE IN A LIFETIME-USE SMARTSET# [id number] Completed 07/11/2024, 02/14/2024, 08/11/2023, Additional history exists [...] this encounter Medical Devices Implanted Type Area Funeral Home Attendant Device Identifier Shelf Expiration Date Model / Serial / Lot Lens Intraoc 21.0 - [id number] - [id number] Implanted:Qty: 1 on 02/08/2017 by Markell Montana MD at OR [facility] Right: Eye BAUSCH & LOMB 07/07/2021 [id number] / [id number] / Lens Intraoc 22.0 - [id number] - [id number] Implanted:Qty: 1 on 02/22/2017 by Markell Montana MD at OR [facility] Left: Eye BAUSCH & LOMB 08/06/2021 [id number] / [id number] / [id number] documented as of this encounter Advance Directives * Full Code [...] and were consensually agreed upon. Care Teams Tar Leveler Relationship Specialty Start Date End Date Preston Villagran MD [address] [place] [address] PCP - General Internal Medicine 01/05/22 documented as of this encounter
--- OUTSIDE RECORDS SUMMARY | 2024-10-15 04:28 | External Medical Summary | Summary of Care ---
Author Name Unknown Organization [facility] Address [address] [place] [address] Phone [phone] Care Team Providers Care Computer Systems Analyst Name Role Phone Preston Villagran MD Primary Care Provider + Reason for Visit * Reason Onset Date Comments Test Results 03/16/2024 Encounter Details Date Type Department Care Team (Late st Contact Info) Description 03/16/2024 Telephone General Internal Medicine [facility] [address] [place] [address] Preston Villagran MD [address] [place] [address] Test Results Allergies Active Allergy Reactions Criticality [...] nonmelanoma skin cancer 03/06/2018 Overview: BCC right restorationism 08/23 Enlarged thoracic aorta 11/17/2016 Chronic migraine [...] mRNA, LNP-s, No Pre serve, 2-Dose Series (Matchpin) 08/07/2021,01/14/2021,12/17/2020 COVID-19, LNP-s, No Preserve , Jose Juan-sucrose, Ages 12+ (Matchpin) 02/24/2022 COVID-19, MRNA-LNP, 23-24, P F, 30 MCG/0.3 mL, 12 YRS AND ABOVE, IM (Click With Me Now-Comirnaty) 08/04/2023 Covid-19, Mrna, Lnp-s, Pf, B ivalent, 30 Mcg, IM, 12 yrs and above (Matchpin) 10/11/2022 Pneumococcal Conjugate Vacc, 13 Valent (Prevnar) [...] encounter Miscellaneous Notes * Telephone Encounter - Chriss Mckinney OSA - 09/03/2024 10:10 AM EDT Patient calling in requesting a return call regarding whether she needs to have both the US and dexa scan(scheduled at [facility]) completed. Please advise. * Telephone Encounter - Andra Pineda MED ASSIST - 03/16/2024 3:40 PM EDT Patient aware [...] Description 09/17/2024 10:30 AM EST Imaging Radiology [facility] 2nd [facility] [address] [place] [address] 10/08/2024 12:30 PM EST Office Visit Otolaryngology [facility] [address] [place] [address] Jt Flannery DO [address] [place] [address] Rosa Rubi Au.D. [address] [place] [address] 10/15/2024 12:00 PM EST Office Visit General Internal Medicine [facility] 200 [facility] [place] [address] Preston Villagran MD 200 [facility] [place] [address] 10/18/2024 11:00 AM EST Office Visit Cardiology, [facility] [address] [place] [address] Iraj Arevalo PA-C [address] [place] [address] 02/05/2025 10:00 AM EDT Office Visit Rheumatology [address] [place] [address] Adeola Chavis CRNP [address] [place] [address] [place] [address] Health Maintenance Due Date Last Done Comments Adult Wellness Visit 05/25/2024 05/25/2023 Depression Screening 05/25/2024 05/25/2023 DXA Scan 06/09/2024 06/09/2022, 01/2022, 05/21/2020, Additional history exists COVID-19 Vaccine ( season) 2024 08/04/2023, 10/11/2022, 02/24/2022, Additional history exists CKD PHOS USE SMARTSET 54943 08/11/202403/2023, 07/29/2022, 06/30/2021 HbA1c 08/11/2024 08/11/2023, 01/05, 07/29/2022, Additional history exists Albumin/Creatinine Ratio 02/15/2025 024, 01/21/2023, 01/06/2022 CKD HGB USE SMARTSET 04194 06/21/202506/21, 06/21/2024, 03/07/2024, Additional history exists DTap/Tdap Vaccines (3 - Td or Tdap) 08/23/2033 08/23/2023, 08/21/2012 Pneumococcal Vaccine: 65+ Years Completed 11/17/2016, 11/21/2001 Zoster Vaccines Completed 03/21/2020, 01/2020, 12/08/2008 Influenza Vaccine (FLU shot) Completed 02/2024, 07/04/2023, 07/04/2023, Additional history exists VITAMIN D LEVEL ONCE IN A LIFETIME-USE SMARTSET# [id number] Completed 07/11/2024, 02/14/2024, 08/11/2023, Additional history exists [...] this encounter Medical Devices Implanted Type Area Production Line Technician Device Identifier Shelf Expiration Date Model / Serial / Lot Lens Intraoc 21.0 - [id number] - [id number] Implanted:Qty: 1 on 02/08/2017 by Markell Montana MD at OR [facility] Right: Eye BAUSCH & LOMB 07/07/2021 [id number] / [id number] / Lens Intraoc 22.0 - [id number] - [id number] Implanted:Qty: 1 on 02/22/2017 by Markell Montana MD at OR [facility] Left: Eye BAUSCH & LOMB 08/06/2021 [id number] / [id number] / [id number] documented as of this encounter Advance Directives [...] and were consensually agreed upon. Care Teams Computer Systems Analyst Relationship Specialty Start Date End Date Preston Villagran MD [address] [place] [address] PCP - General Internal Medicine 01/05/22 documented as of this encounter
--- OUTSIDE RECORDS SUMMARY | 2024-10-15 04:28 | External Medical Summary | Summary of Care ---
Author Name Unknown Organization [facility] Address [address] [place] [address] Phone [phone] Care Team Providers Care Site Acquisition Manager Name Role Phone Preston Villagran MD Primary Care Provider + Reason for Visit * Reason Onset Date Comments Test Results Lab 07/13/2024 Encounter Details Date Type Department Care Team (Late st Contact Info) Description 07/13/2024 Telephone General Internal Medicine [facility] [address] [place] [address] Karol Vazquez MD 200 [place] [address] Test Results Lab Allergies Active Allergy Reactions Criticality Noted Date [...] as of this encounter (statuses as of 10/10/2024) Medications VITAMIN D 1000 UNITS PO CAPSIndications :Vitamin D deficiency 2 capsules daily 60 Cap 11 2 Active denosumab (PROLIA) 60 MG/ML injection Twice yearly 1 Syringe 8 Active Acetaminophen 325 MG Oral Tablet Take 2 Tablets by mouth every 6 hours as needed for Pain, Moderate. Active Clindamycin HCl 150 MG Oral Capsule (Cleocin) 2 Active Dicyclomine HCl 10 MG Oral CapsuleIndicati ons:Abdominal cramping Take 1 Capsule by mouth 4 times a day as needed for Cramping. for abdominal pain 120 Capsule 11 4 Active Apixaban 2.5 MG Oral Tablet (Eliquis)Indica tions:HTN, goal below 140/90,A-fib (HCC) TAKE 1 TABLET BY MOUTH TWICE DAILY 180 Tablet 3 4 Active Metoprolol Succinate ER 100 MG Oral Tablet Extended Release 24 Hour (Toprol XL) Take 1 Tablet by mouth in the morning. 90 Tablet 3 4 Active documented as of this encounter (statuses as of 10/10/2024) Active Problems Problem Noted Date Diagnosed Date [...] skin cancer 03/06/2018 Overview (03/06/2018): BCC right rastafari 08/23 Enlarged thoracic aorta 11/17/2016 Chronic migraine 10/06/2015 Lumbar degenerative disc disease 10/21/2014 GERD (gastroesophageal reflux disease) 2 Overview (03/04/2019): 02/23-EGD-nml ,2mm gastric polyp Gastroparesis 08/21/2012 HTN, goal below 140/90 04/26/2011 Mixed hyperlipidemia 04/26/2011 documented as of this encounter (statuses as of 10/10/2024) Resolved Problems Problem Noted Date Diagnosed Date Resolved Date Protein-calorie malnutrition 06/06/2020 12/01/2020 Headache 02/11/2015 06/08/2017 Thoracic aortic aneurysm 06/04/2011 Overview (06/04/2011): Echo needed to follow Diverticulitis of colon 07/2018 documented as of this encounter (statuses as of 10/10/2024) Immunizations Name Administration Dates Next Due COVID-19 mRNA, LNP-s, No Pre serve, 2-Dose Series ([employer]) 08/07/2021,01/14/2021,12/17/2020 COVID-19, LNP-s, No Preserve , Jose Juan-sucrose, Ages 12+ ([employer]) 02/24/2022 COVID-19, MRNA-LNP, PF, 30 M CG/0.3 mL, 12 YRS AND ABOVE, IM (FireEye-Comirnat) 08/04/2023 Covid-19, Mrna, Lnp-s, Pf, B ivalent, 30 Mcg, IM, 12 yrs and above ([employer]) 10/11/2022 Pneumococcal Conjugate Vacc, 13 Valent (Prevnar) [...] y our heating, water, or electric bill? No 05/25/2023 Is your family able to pay t he heat, water, or electric bill? (Household - for ages 0-17 years) Not on file 05/25/2023 Does your family have access to good internet? (Household - for ages 0-17 years) Not on file 05/25/2023 Employment Status Answer Date Recorded Are you unemployed or without regular income? No 05/25/2023 Does the household have a re gular source of income? (Household - for ages 0-17 years) Not on file 05/25/2023 Social Connections Answer Date Recorded How often do you feel lonely or isolated from th ose around you? Never 05/25/2023 Financial Resource Strain Answer Date R ecorded [...] AM EDT documented as of this encounter Miscellaneous Notes * Telephone Encounter - Lu Ureña LPN - 07/13/2024 11:47 AM EDT Patient is aware and verbalizes understanding. * Telephone Encounter - Pilar Amaya CMA - 07/13/2024 11:15 AM EDT LVM to return call, please transfer to designated nurse line * Telephone Encounter - Pilar Amaya CMA - 07/13/2024 11:14 AM EDT ----- Message from Karol Vazquez MD sent at 07/12/2024 12:43 PM EDT ----- Urine negative - no UTI Labs unremarkable except Vit B12 on low side of normal . Start OTC vit b12 1000 mcg daily Follow as directed for RLS Please call Patient as not active in my G documented in this encounter Plan of Treatment Upcoming Encounters Date Type Department Care Team (Late st Contact Info) Description 10/15/2024 12:00 PM EST Office Visit General Internal Medicine [facility] [address] [facility] [place] [address] Preston Villagran MD 200 [facility] [place] [address] 10/18/2024 11:00 AM EST Office Visit Cardiology, [facility] [address] [place] [address] Iraj Arevalo PA-C [address] [place] [address] 11/14/2024 1:00 PM EST Office Visit Audiology [facility] [address] [place] [address] Rosa Rubi Au.D. [address] [place] [address] 02/05/2025 10:00 AM EDT Office Visit Rheumatology [facility] [place] [address] [facility] [place] [address] Adeola Chavis CRNP [address] [facility] [place] [address] Health Maintenance Due Date Last Done Comments Adult Wellness Visit 05/25/2024 05/25/2023 Depression Screening 05/25/2024 05/25/2023 DXA Scan 06/09/2024 06/09/2022, 01/2022, 05/21/2020, Additional history exists COVID-19 Vaccine ( season) 2024 08/04/2023, 10/11/2022, 02/24/2022, Additional history exists CKD PHOS USE SMARTSET 23177 08/11/20240 03/2023, 07/29/2022, 06/30/2021 HbA1c 08/11/2024 08/11/2023, 01/05, 07/29/2022, Additional history exists Albumin/Creatinine Ratio 02/15/2025 024, 01/21/2023, 01/06/2022 CKD HGB USE SMARTSET 10527 09/26/202509/26, 09/26/2024, 06/21/2024, Additional history exists DTap/Tdap Vaccines (3 - Td or Tdap) 08/23/2033 08/23/2023, 08/21/2012 Pneumococcal Vaccine: 65+ Years Completed 11/17/2016, 11/21/2001 Zoster Vaccines Completed 03/21/2020, 01/2020, 12/08/2008 Influenza Vaccine (FLU shot) Completed 02/2024, 07/04/2023, 07/04/2023, Additional history exists VITAMIN D LEVEL ONCE IN A LIFETIME-USE SMARTSET# [id number] Completed 07/11/2024, 02/14/2024, 08/11/2023, Additional history exists [...] this encounter Medical Devices Implanted Type Area Sample Maker Hand Device Identifier Shelf Expiration Date Model / Serial / Lot Lens Intraoc 21.0 - [id number] - [id number] Implanted:Qty: 1 on 02/08/2017 by Markell Montana MD at OR [facility] Right: Eye BAUSCH & LOMB 07/07/2021 [id number] / [id number] / Lens Intraoc 22.0 - [id number] - [id number] Implanted:Qty: 1 on 02/22/2017 by Markell Montana MD at OR [facility] Left: Eye BAUSCH & LOMB 08/06/2021 [id number] / [id number] / [id number] documented as of this encounter Advance Directives [...] and were consensually agreed upon. Care Teams Site Acquisition Manager Relationship Specialty Start Date End Date Preston Villagran MD 200 [facility] [place], [place] [address] PCP - General Internal Medicine 01/05/22 documented as of this encounter
--- OUTSIDE RECORDS SUMMARY | 2024-10-15 04:28 | External Medical Summary | Summary of Care ---
Author Name Unknown Organization [facility] Address [address] [place] [address] Phone [phone] Care Team Providers Care Truck Body Builder Name Role Phone Preston Villagran MD Primary Care Provider + Encounter Details Date Type Department Care Team (Late st Contact Info) Description 10/08/2024 Orders Only Audiology [facility] [address] [place] [facility] [address] Rosa Rubi AuAisha [address] [facility] [place] [address] Allergies Active Allergy Reactions Criticality Noted Date [...] as of this encounter (statuses as of 10/08/2024) Medications VITAMIN D 1000 UNITS PO CAPSIndications:V itamin [...] Active Terazosin HCl 1 MG Oral Capsule (Hytrin)Indicatio ns:HTN, goal below 140/90,Paroxysmal atrial fibrillation (HCC) TAKE 1 CAPSULE BY MOUTH AT BEDTIME 90 Capsule 3 4 Active Rosuvastatin Calcium 5 MG Oral Tablet (Crestor)Indicati ons:Dyslipidemia, goal LDL below 130 TAKE 1 TABLET BY MOUTH IN THE MORNING 90 Tablet 3 4 Active SUMAtriptan Succinate 100 MG Oral TabletIndications :Migraine without aura and without status migrainosus, not intractable TAKE 1 TABLET BY MOUTH DAILY NEEDED FOR MIGRAINE(S) 36 Tablet 1 4 Active Pantoprazole Sodium 40 MG Oral Tablet Delayed Release (Protonix)Indicat ions:Gastroesopha geal reflux disease without esophagitis Take 1 Tablet by mouth in the morning. 30 Tablet 2 4 Active documented as of this encounter (statuses as of 10/08/2024) Active Problems Problem Noted Date Diagnosed Date [...] skin cancer 03/06/2018 Overview (03/06/2018): BCC right hoahaoism 08/23 Enlarged thoracic aorta 11/17/2016 Chronic migraine 10/06/2015 Lumbar degenerative disc disease 10/21/2014 GERD (gastroesophageal reflux disease) 2 Overview (03/04/2019): 02/23-EGD-nml ,2mm gastric polyp Gastroparesis 08/21/2012 HTN, goal below 140/90 04/26/2011 Mixed hyperlipidemia 04/26/2011 documented as of this encounter (statuses as of 10/08/2024) Resolved Problems Problem Noted Date Diagnosed Date Resolved Date Protein-calorie malnutrition 06/06/2020 12/01/2020 Headache 02/11/2015 06/08/2017 Thoracic aortic aneurysm 06/04/2011 Overview (06/04/2011): Echo needed to follow Diverticulitis of colon 07/2018 documented as of this encounter (statuses as of 10/08/2024) Immunizations Name Administration Dates Next Due COVID-19 mRNA, LNP-s, No Pre serve, 2-Dose Series ([employer]) 08/07/2021,01/14/2021,12/17/2020 COVID-19, LNP-s, No Preserve , Jose Juan-sucrose, Ages 12+ (Pfizer) 02/24/2022 COVID-19, MRNA-LNP, PF, 30 M CG/0.3 mL, 12 YRS AND ABOVE, IM ([facility]) 08/04/2023 Covid-19, Mrna, Lnp-s, Pf, B ivalent, 30 Mcg, IM, 12 yrs and above ([employer]) 10/11/2022 Pneumococcal Conjugate Vacc, 13 Valent (Prevnar) [...] Seasonal Influenza, Quadriva lent Hd, 65+ Yrs 07/04/2023,06/20/2023,07/29/2022,1004/2021,07/31/2021 Seasonal Influenza, Quadriva lent, No Preserve, IM [...] AM EDT documented as of this encounter Plan of Treatment Upcoming Encounters Date Type Department Care Team (Late st Contact Info) Description 10/15/2024 12:00 PM EST Office Visit General Internal Medicine [facility] [place] [address] [place] [address] Preston Villagran MD 200 [facility] [place] [address] 10/18/2024 11:00 AM EST Office Visit Cardiology, [facility] [address] [place] [address] Iraj Arevalo PA-C [address] [place] [address] 11/14/2024 1:00 PM EST Office Visit Audiology [facility] [address] [place] [address] Rosa Rubi Au.D. [address] [place] [address] 02/05/2025 10:00 AM EDT Office Visit Rheumatology [facility] [address] [facility] [place] [address] Adeola Chavis CRNP [address] [facility] [place] [address] Health Maintenance Due Date Last Done Comments Adult Wellness Visit 05/25/2024 05/25/2023 Depression Screening 05/25/2024 05/25/2023 DXA Scan 06/09/2024 06/09/2022, 01/2022, 05/21/2020, Additional history exists COVID-19 Vaccine ( season) 2024 08/04/2023, 10/11/2022, 02/24/2022, Additional history exists CKD PHOS USE SMARTSET 01957 08/11/202403/2023, 07/29/2022, 06/30/2021 HbA1c 08/11/2024 08/11/2023, 01/05, 07/29/2022, Additional history exists Albumin/Creatinine Ratio 02/15/2025 024, 01/21/2023, 01/06/2022 CKD HGB USE SMARTSET 18677 09/26/202509/26, 09/26/2024, 06/21/2024, Additional history exists DTap/Tdap Vaccines (3 - Td or Tdap) 08/23/2033 08/23/2023, 08/21/2012 Pneumococcal Vaccine: 65+ Years Completed 11/17/2016, 11/21/2001 Zoster Vaccines Completed 03/21/2020, 01/2020, 12/08/2008 Influenza Vaccine (FLU shot) Completed 02/2024, 07/04/2023, 07/04/2023, Additional history exists VITAMIN D LEVEL ONCE IN A LIFETIME-USE SMARTSET# 25912 Completed 07/11/2024, 02/14/2024, 08/11/2023, Additional history exists [...] this encounter Medical Devices Implanted Type Area Hr Business Partner Device Identifier Shelf Expiration Date Model / Serial / Lot Lens Intraoc 21.0 - [id number] - [id number] Implanted:Qty: 1 on 02/08/2017 by Markell Montana MD at OR [facility] Right: Eye [employer] 07/07/2021 [id number] / [id number] / Lens Intraoc 22.0 - [id number] - [id number] Implanted:Qty: 1 on 02/22/2017 by Markell Montana MD at [facility] Left: Eye [employer] 08/06/2021 [id number] / [id number] / [id number] documented as of this encounter Procedures Procedure Name Priority Date/Time Associated Diagnosis Comments AUDIOMETRIC RESULT 10/08/2024 documented in this encounter Results * AUDIOMETRIC RESULT (10/08/2024) 10/08/2024 Rosa Salvador [facility] Final Resul t documented in this encounter Advance Directives * [...] and were consensually agreed upon. Care Teams Truck Body Builder Relationship Specialty Start Date End Date Preston Villagran MD [address] [facility] [place] [address] PCP - General Internal Medicine 01/05/22 documented as of this encounter
--- OUTSIDE RECORDS SUMMARY | 2024-10-15 04:28 | External Medical Summary | Summary of Care ---
Author Name Unknown Organization [facility] Address [address] [place] [address] Phone [phone] Care Team Providers Care Purification Supervisor Name Role Phone Preston Villagran MD Primary Care Provider + Reason for Visit * Reason Comments Cerumen Impaction Encounter Details Date Type Department Care Team (Latest Contact Info) Description 10/08/2024 12:30 PM EST Office Visit Otolaryngology [facility] [address] [facility] [place] [address] Jt Flannery DO [address] [place] [address] Rosa Rubi Au.D. [address] [place] [address] Bilateral sensorineural hearing loss*; Bilateral impacted cerumen Allergies Active Allergy Reactions Criticality Noted Date [...] skin cancer 03/06/2018 Overview (03/06/2018): BCC right mu-ism 08/23 Enlarged thoracic aorta 11/17/2016 Chronic migraine [...] mRNA, LNP-s, No Pre serve, 2-Dose Series ([employer]) 08/07/2021,01/14/2021,12/17/2020 COVID-19, LNP-s, No Preserve , Jose Juan-sucrose, Ages 12+ ([employer]) 02/24/2022 COVID-19, MRNA-LNP, PF, 30 M CG/0.3 mL, 12 YRS AND ABOVE, IM ([facility]) 08/04/2023 Covid-19, Mrna, Lnp-s, Pf, B ivalent, 30 Mcg, IM, 12 yrs and above ([employer]) 10/11/2022 Pneumococcal Conjugate Vacc, 13 Valent (Prevnar) [...] Sign Reading Time Taken Comments Blood Pressure - - Pulse - - Temperature - - Respiratory Rate - - Oxygen Saturation - - Inhaled Oxygen Concentration - - Weight 52.3 kg (115 lb 4.8 oz) 10/08/2024 12:50 PM EST Height 152.4 cm (5') 10/08/2024 12:50 PM EST Body Mass Index 22.52 10/08/2024 12:50 PM EST documented in this encounter Progress Notes * Rosa Rubi Au.D. - 10/08/2024 1:08 PM EST Audiologic evaluation was completed on referral from Otolaryngology clinic. Tympanometry 24060 Right: Decreased static admittance with normal tympanometric peak pressure and equivalent volume ("Type As") Left: Decreased static admittance with normal tympanometric peak pressure and equivalent volume ("Type As") Standard audiometric testing 20595 ABSD insert earphones pediatric inserts, small canals Good reliability Right: sensorineural hearing loss Left: sensorineural hearing loss Speech recognition thresholds were consistent with hearing thresholds. Word recognition scores, obtained via monitored live voice were: right 92%, left 96% Hearing Aid Consultation The audiogram was reviewed with Alison. The benefits and limitations of amplification were discussed in detail. The different styles of hearing aids (in-the-ear vs. gpxbeu-dwc-sbs) were discussed. Monaural vs. binaural use of amplification was discussed and binaural amplification was recommended. Due to previous struggles keeping hearing aids in her ears and having narrow and short ear canals, custom molds recommended. The different levels of digital technology and features were explained. Allquestions were answered. It was decided that Alison would try entry level paralegal power distributor in the ear hearing aids with an earmold. Earmold impressions were taken of both ears, without incident, and the following hearing aids were ordered: Make: Oticon Model:Zircon 2 Style: miniRITE-R Earmold: micro mold with canal lock Color:" Chroma Beige Retention #2 85 gain Plan Alison will return in approximately 4-6 weeks to be fit with her new hearing aids. She was advisedto contact the clinic prior to that time should she have any questions or concerns. Policy for insurance reimbursement was discussed with Alison, and she expressed understanding. She is aware that payment is due for one hearing aid at the time of the hearing aid fitting. She is also aware that a clearance form must be completed by her physician before she can be fit with the hearing aids. Modesto Carl, [facility] 10/08/2024 1:09 PM Scan: audiogram, tympanograms * Jt Flannery DO - 10/08/2024 1:04 PM EST 10/08/2024 HISTORY OF PRESENT ILLNESS This 89 year old female is seen at the request of Preston Villagran MD for the initial evaluation of bilateral hearing loss. Patient states this has been going on for several years. Notices that it is hard for her to hear in conversation especially when there is background noise. She did see anoutside attenuator for hearing aids in the past but states they were hard for her to keep in her ear. Thus she is not currently wearing them. Denies previous otologic surgery. No history of recurrent otitis media. Problem List Patient Active Problem List Diagnosis HTN, goal below 140/90 Mixed hyperlipidemia Gastroparesis GERD (gastroesophageal reflux disease) Lumbar degenerative disc disease Chronic migraine Enlarged thoracic aorta (HCC) History of nonmelanoma skin cancer Senile osteoporosis Raynaud phenomenon Prediabetes Paroxysmal atrial fibrillation (HCC) S/P placement of cardiac pacemaker Tachy-michael syndrome (HCC) RLS (restless legs syndrome) Chronic kidney disease, stage 3a History of colonic diverticulitis Right kidney stone Thyroid nodule Past Medical History: Diagnosis Date Diverticulitis of colon Dyslipidemia, goal LDL below 160 04/26/2011 History of colonic diverticulitis 01/05/2022 HTN, goal below 140/90 04/26/2011 Lumbar degenerative disc disease 10/21/2014 Osteoporosis 04/26/2011 Raynaud phenomenon 11/15/2018 Right kidney stone 05/05/2022 S/P placement of cardiac pacemaker 07/24/2020 Thoracic aortic aneurysm (HCC) 06/04/2011 Thyroid nodule 07/22/2022 Past Surgical History: Procedure Laterality Date EGD, FLEXIBLE, DIAGNOSTIC 02/27/2019 diminutive polyp of stomach/normal biopsies/ESOPHAGOGASTRODUODENOSCOPY (EGD), FLEXIBLE, TRANSORAL, DIAGNOSTIC performed by Dangelo Rush MD at ENDOSCOPY [facility] EGD, W/ENDOSCOPIC US N/A 04/28/2022 sludge CBD/bile gastritis/biopsies show mild gastritis/ESOPHAGOGASTRODUODENOSCOPY (EGD), FLEXIBLE, TRANSORAL, ENDOSCOPIC ULTRASOUND performed by Pardeep Lazo DO at OR [facility] ERCP 02/29/2020 Biliary papillary stenosis, choledocholithiasis, repeat 6 wks / INPT [facility] ERCP 03/28/2020 retained food, stent removed / [facility] ERCP, DIAGNOSTIC, SPECIMEN COLLECTION N/A 04/28/2022 suspicious for sludge/main bile duct mildly dilated/ENDOSCOPIC RETROGRADE CHOLANGIOPANCREATOGRAPHY (ERCP) DIAGNOSTIC performed by Pardeep Lazo DO at OR [facility] FRAGMENT KIDNEY STONE BY SHOCK WAVE Right 02/17/2023 LUMBAR HEMILAMINECTOMY L5 REMOVE CATARACT, INSERT LENS PROSTH Right 02/08/2017 right EXTRACAPSULAR CATARACT REMOVAL WITH INTRAOCULAR LENS performed by Markell Montana MD at OR [facility] REMOVE CATARACT, INSERT LENS PROSTH Left 02/22/2017 left EXTRACAPSULAR CATARACT REMOVAL WITH INTRAOCULAR LENS performed by Markell Montana MD at OR [facility] REMOVE GALLBLADDER, W/XRAY EXAM N/A 02/02/2020 Medications Current Outpatient Medications Medication Sig Dispense Refill VITAMIN D 1000 UNITS PO CAPS 2 capsules daily 60 Cap 11 denosumab (PROLIA) 60 MG/ML injection Twice yearly 1 Syringe 0 Acetaminophen 325 MG Oral Tablet Take 2 Tablets by mouth every 6 hours as needed for Pain, Moderate. Clindamycin HCl 150 MG Oral Capsule (Cleocin) Dicyclomine HCl 10 MG Oral Capsule Take 1 Capsule by mouth 4 times a day as needed for Cramping. for abdominal pain 120 Capsule 11 Apixaban 2.5 MG Oral Tablet (Eliquis) TAKE 1 TABLET BY MOUTH TWICE DAILY 180 Tablet 3 Metoprolol Succinate ER 100 MG Oral Tablet Extended Release 24 Hour (Toprol XL) Take 1 Tablet by mouth in the morning. 90 Tablet 3 Terazosin HCl 1 MG Oral Capsule (Hytrin) TAKE 1 CAPSULE BY MOUTH AT BEDTIME 90 Capsule 3 Rosuvastatin Calcium 5 MG Oral Tablet (Crestor) TAKE 1 TABLET BY MOUTH IN THE MORNING 90 Tablet 3 SUMAtriptan Succinate 100 MG Oral Tablet TAKE 1 TABLET BY MOUTH DAILY NEEDED FOR MIGRAINE(S) 36 Tablet 1 Pantoprazole Sodium 40 MG Oral Tablet Delayed Release (Protonix) Take 1 Tablet by mouth in the morning. 30 Tablet 2 No current facility-administered medications for this visit. Allergies Review of patient's allergies indicates: Allergen Reactions Atorvastatin Inc lft after cholecystectomy Other Reaction(s): Inc Lft after Cholecystectomy Erythromycin Base Other reaction(s): Vomiting Fentanyl Other reaction(s): SEVERE N&V;DIZZY Other Reaction(s): SEVERE N&V;DIZZY Ondansetron Other reaction(s): Nausea Topiramate Other reaction(s): "FINGERS NUMB" Tramadol Other reaction(s): Vomiting Bactrim Rash Codeine Nausea/vomiting Darvocet [Propoxyphene N-Acetaminophen] Nausea/vomiting dizziness Effexor [Venlafaxine] Hives, Itching and Rash Erythromycin Abdominal pain Flagyl [Metronidazole] Hives and Rash Penicillins Hives Topamax Caused fingers to be numb and tingle Trimethoprim Other reaction(s): RASH Vasotec Edema Other Bilateral lower legs, ankles Clindamycin Other reaction(s): Nausea Propoxyphene Unknown Quinolones Other reaction(s): N&V Sulfa Antibiotics Rash on chest Other reaction(s): Rash Family History Family History Problem Relation Name Age of Onset Heart Disorder Father DC Other (Other [Other]) Mother Hip Fracture Heart Disorder Sister 72 DC/PCI Heart Disorder Brother 72 PCI Heart Disorder Brother 61 DC/PCI Social History Social History Tobacco Use Smoking status: Never Smokeless tobacco: Never Substance Use Topics Alcohol use: Yes Comment: very little Vaping/E-Cigarette Use Vaping/E-Cigarette Use Never User Vaping/E-Cigarette Substances Vaping/E-Cigarette Devices Review of Systems Negative for constitutional, eyes, cardiac, pulmonary, hepatic, renal, digestive, hematologic, epileptic, syncopal, musculo-skeletal, mental health, integumentary, hypertensive, lipid, arthritic, diabetic, thyroid, or neurologic disorders (except as listed in the PMH and Problem List). Physical Examination: Ht 1.524 m (5') | Wt 52.3 kg (115 lb 4.8 oz) | BMI 22.52 kg/m | BSA 1.49 m PHYSICAL EXAM General: This is a healthy appearing female who appears her stated age. The patient is alert and appropriately verbally conversant without hoarseness. Face: The face was inspected and no cutaneous masses or lesions were visualized. There was no erythema or edema noted. Facial movement was symmetric without weakness. Eyes: Extra-ocular muscle function was intact. No nystagmus was observed. Pupils were equal. Cranial Nerves: Cranial nerves II, III, IV, and were noted to be intact via extra-ocular muscle movement testing. Cranial nerve VII noted to be intact and symmetric by facial movement. Nose: Examination of the external nose normal. Ears: Examination of the ears revealed that the auricles were normally formed with no lesions. The external auditory canals were cleaned of any obstructing cerumen. The tympanic membranes were intactand freely mobile to pneumatoscopy. There are no significant retraction pockets. There is no inflammation visualized. No effusions are seen. Lungs: Breathing quietly. No use of accessory muscles. Heart: Regular rate. No JVD. Procedure: In order to assess ears in further detail, the patient was brought to the microscope room and the ears were evaluated under the operating microscope. The findings are as noted in the above physical exam. Procedure: Cerumen removal Attention directed to the right ear. Under carey-microscopic guidance the impacted cerumen was removed with a suction atraumatically. The tympanic membrane was intact and the middle ear was healthy appearing. The same procedure was performed on the other side. Patient tolerated the procedure well. Assessment: 89-year-old female with bilateral sensorineural hearing loss, bilateral cerumen impactions Plan: - patient could consider hearing aid evaluation. -cerumen removed as above. -follow-up p.r.n. I spent a total of 45 minutes on the date of service in preparation, delivery, and documentation ofthe care provided to the above patient, excluding any time spent on the performance of any procedures or separately billable services. Jt Flannery DO, [facility] [employer] Floor Runner, Department of Otolaryngology-Head and Neck Surgery [facility], [place] 10/08/2024 2:00 PM documented in this encounter Nursing Notes * Kaylene Dobbins LPN - 10/08/2024 12:47 PM EST Chief Complaint Patient presents with Cerumen Impaction Patient presents today for cerumen removal. Pt reports decreased hearing, missing a lot of conversation. Last hearing test approx 5 years ago. Would like a new hearing test and try new hearing aids. She states she tried hearing aids before but couldn't keep them in her ears they were too large. Pt denies any ear pain. No tinnitus. No hx of ear surgeries. documented in this encounter Plan of Treatment Upcoming Encounters Date Type Department Care Team (Late st Contact Info) Description 10/15/2024 12:00 PM EST Office Visit General Internal Medicine [facility] 200 [facility] [place] [address] Preston Villagran MD 200 [facility] [place] [address] 10/18/2024 11:00 AM EST Office Visit Cardiology, [facility] 132 [facility] [place] [address] Iraj Arevalo PA-C 132 [facility] [place] [address] 11/14/2024 1:00 PM EST Office Visit Audiology [facility] [address] [place] [address] Rosa Rubi Au.D. [address] [place] [address] 02/05/2025 10:00 AM EDT Office Visit Rheumatology [facility] [address] [place] [address] Adeola Chavis CRNP [address] [employer] [place] [address] Health Maintenance Due Date Last Done Comments Adult Wellness Visit 05/25/2024 05/25/2023 Depression Screening 05/25/2024 05/25/2023 DXA Scan 06/09/2024 06/09/2022, 01/2022, 05/21/2020, Additional history exists COVID-19 Vaccine ( season) 2024 08/04/2023, 10/11/2022, 02/24/2022, Additional history exists CKD PHOS USE SMARTSET 95064 08/11/202403/2023, 07/29/2022, 06/30/2021 HbA1c 08/11/2024 08/11/2023, 01/05, 07/29/2022, Additional history exists Albumin/Creatinine Ratio 02/15/2025 024, 01/21/2023, 01/06/2022 CKD HGB USE SMARTSET 79665 09/26/202509/26, 09/26/2024, 06/21/2024, Additional history exists DTap/Tdap Vaccines (3 - Td or Tdap) 08/23/2033 08/23/2023, 08/21/2012 Pneumococcal Vaccine: 65+ Years Completed 11/17/2016, 11/21/2001 Zoster Vaccines Completed 03/21/2020, 01/2020, 12/08/2008 Influenza Vaccine (FLU shot) Completed 02/2024, 07/04/2023, 07/04/2023, Additional history exists VITAMIN D LEVEL ONCE IN A LIFETIME-USE SMARTSET# [id number] Completed 07/11/2024, 02/14/2024, 08/11/2023, Additional history exists [...] this encounter Medical Devices Implanted Type Area Dry Curer Device Identifier Shelf Expiration Date Model / Serial / Lot Lens Intraoc 21.0 - [id number] - [id number] Implanted:Qty: 1 on 02/08/2017 by Markell Montana MD at OR [facility] Right: Eye [employer] 07/07/2021 [id number] / [id number] / Lens Intraoc 22.0 - [id number] - [id number] Implanted:Qty: 1 on 02/22/2017 by Markell Montana MD at OR [facility] Left: Eye [employer]OMB 08/06/2021 [id number] / [id number] / [id number] documented as of this encounter Visit Diagnoses Diagnosis Bilateral sensorineural hearing loss- Primary Sensorineural hearing loss, bilateral Bilateral impacted cerumen Impacted cerumen documented in this encounter Advance Directives * [...] and were consensually agreed upon. Care Teams Purification Supervisor Relationship Specialty Start Date End Date Preston Villagran MD 200 [place] [address] PCP - General Internal Medicine 01/05/22 documented as of this encounter
--- OUTSIDE RECORDS SUMMARY | 2024-10-15 04:28 | External Medical Summary | Summary of Care ---
Author Name Unknown Organization [facility] Address [address] [place] [address] Phone [phone] Care Team Providers Care Work Distributor Name Role Phone Preston Villagran MD Primary Care Provider + Reason for Visit * Reason Onset Date Comments Advice 08/28/2024 Encounter Details Date Type Department Care Team (Late st Contact Info) Description 08/28/2024 Telephone General Internal Medicine [facility] [address] [place] [address] Preston Villagran MD [address] [place] [address] Advice Allergies Active Allergy Reactions Criticality Noted Date [...] Date Status VITAMIN D 1000 UNITS PO CAPSIndications:Hilda min D deficiency 2 capsules daily 60 Cap 11 08/30/2012 Active denosumab (PROLIA) 60 MG/ML injection Twice yearly 1 Syringe 04/27/2018 Active Acetaminophen 325 MG Oral Tablet Take 2 Tablets by mouth every 6 hours as needed for Pain, Moderate. Active Clindamycin HCl 150 MG Oral Capsule (Cleocin) 01/25/2022 Active Dicyclomine HCl 10 MG Oral CapsuleIndications:A bdominal cramping Take 1 Capsule by mouth 4 times a day as needed for Cramping. for abdominal pain 120 Capsule 11 11/08/2023 Active Apixaban 2.5 MG Oral Tablet (Eliquis)Indications :HTN, goal below 140/90,A-fib (HCC) TAKE 1 TABLET BY MOUTH TWICE DAILY 180 Tablet 3 02/15/2024 Active Metoprolol Succinate ER 100 MG Oral Tablet Extended Release 24 Hour (Toprol XL) Take 1 Tablet by mouth in the morning. 90 Tablet 3 04/16/2024 Active Omeprazole 40 MG Oral Capsule Delayed Release (PriLOSEC) TAKE 1 CAPSULE BY MOUTH DAILY 1 HOUR BEFORE THE FIRST MEAL OF THE DAY 90 Capsule 1 07/02/2024 Active Gabapentin 100 MG Oral Capsule (Neurontin)Indicatio ns:RLS (restless legs syndrome) Take 1 Capsule by mouth at bedtime. In 3 days increase to 2 tab and in 3 days increase to 3 tab 90 Capsule 5 07/11/2024 Active Terazosin HCl 1 MG Oral Capsule (Hytrin)Indications: HTN, goal below 140/90,Paroxysmal atrial fibrillation (HCC) TAKE 1 CAPSULE BY MOUTH AT BEDTIME 90 Capsule 3 07/18/2024 Active Rosuvastatin Calcium 5 MG Oral Tablet (Crestor)Indications :Dyslipidemia, goal LDL below 130 TAKE 1 TABLET BY MOUTH IN THE MORNING 90 Tablet 3 07/19/2024 Active SUMAtriptan Succinate 100 MG Oral TabletIndications:Mi graine without aura and without status migrainosus, not intractable TAKE 1 TABLET BY MOUTH DAILY NEEDED FOR MIGRAINE(S) 36 Tablet 1 07/23/2024 Active documented as of this encounter (statuses [...] nonmelanoma skin cancer 03/06/2018 Overview: BCC right latter day 08/23 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 Nothing is needed * Telephone Encounter - Matthew Burrows OSA - 08/28/2024 1:37 PM EDT Alison is requesting return call from accredited legal secretary at office regarding paperwork. Stated someone at the office was helping her out. Is asking for call as soon as someone can Please review and advise Thank you documented in this encounter Plan of Treatment Upcoming Encounters Date Type Department Care Team (Late st Contact Info) Description 09/17/2024 10:30 AM EST Imaging Radiology [facility] 2nd Floor, [place] [facility] [place] [address] 10/08/2024 12:30 PM EST Office Visit Otolaryngology [facility] [address] [place] [address] Jt Flannery, [address] [facility] [place] [address] Rosa Rubi Au.D. [address] [place] [address] 10/15/2024 12:00 PM EST Office Visit General Internal Medicine [facility] 200 [facility] [place] [address] Preston Villagran MD 200 [facility] [place] [address] 10/18/2024 11:00 AM EST Office Visit Cardiology, [facility] [address] [place] [address] Iraj Arevalo PA-C [address] [place] [address] 02/05/2025 10:00 AM EDT Office Visit Rheumatology [facility] [address] [place], [place] [address] Adeola Chavis CRNP [address] [place], [place] [address] Health Maintenance Due Date Last Done Comments Adult Wellness Visit 05/25/2024 05/25/2023 Depression Screening 05/25/2024 05/25/2023 DXA Scan 06/09/2024 06/09/2022, 01/2022, 05/21/2020, Additional history exists COVID-19 Vaccine ( season) 2024 08/04/2023, 10/11/2022, 02/24/2022, Additional history exists CKD PHOS USE SMARTSET 96701 08/11/20240 03/2023, 07/29/2022, 06/30/2021 HbA1c 08/11/2024 08/11/2023, 01/05, 07/29/2022, Additional history exists Albumin/Creatinine Ratio 02/15/2025 024, 01/21/2023, 01/06/2022 CKD HGB USE SMARTSET 29586 06/21/202506/21, 06/21/2024, 03/07/2024, Additional history exists DTap/Tdap Vaccines (3 - Td or Tdap) 08/23/2033 08/23/2023, 08/21/2012 Pneumococcal Vaccine: 65+ Years Completed 11/17/2016, 11/21/2001 Zoster Vaccines Completed 03/21/2020, 01/2020, 12/08/2008 Influenza Vaccine (FLU shot) Completed 02/2024, 07/04/2023, 07/04/2023, Additional history exists VITAMIN D LEVEL ONCE IN A LIFETIME-USE SMARTSET# 92647 Completed 07/11/2024, 02/14/2024, 08/11/2023, Additional history exists [...] this encounter Medical Devices Implanted Type Area Automotive Service Advisor Device Identifier Shelf Expiration Date Model / Serial / Lot Lens Intraoc 21.0 - [id number] - [id number] Implanted:Qty: 1 on 02/08/2017 by Markell Montana MD at OR [facility] Right: Eye [employer] 07/07/2021 [id number] / [id number] / Lens Intraoc 22.0 - [id number] - [id number] Implanted:Qty: 1 on 02/22/2017 by Markell Montana MD at OR [facility] Left: Eye [employer]OMB 08/06/2021 [id number] / [id number] documented as of this encounter Advance Directives [...] and were consensually agreed upon. Care Teams Work Distributor Relationship Specialty Start Date End Date Preston Villagran MD [address] [place] [address], [place] [address] PCP - General Internal Medicine 01/05/22 documented as of this encounter
--- OUTSIDE RECORDS SUMMARY | 2024-10-15 04:28 | External Medical Summary ---
Author Name Unknown Address Unknown Organization K09:[facility] [address] [place] [address] Laboratory Report Ordering Provider Test Date Status BILLY BLANCHARD 09/26/2024 11:17:27 Final Observation Date Value Abnormality Reference (Units ) Status BUN 09/26/2024 11:17:27 22 Above high normal 6-20 (mg/dL) Final Creatinine 09/26/2024 11:17:27 0.8 0.5-1.0 (mg/dL) Final Glomerular filtration rate/1.73 sq M.predicted [Volume Rate/Area] in Serum, Plasma or Blood by Creatinine-based formula (CKD-EPI) 09/26/2024 11:17:27 71 >=60 (mL/min) Final eGFR is calculated based on the CKD-EPI 2020 equation. Sodium 09/26/2024 11:17:27 139 135-146 (m mol/L) Final Potassium 09/26/2024 11:17:27 4.3 3.5-5.1 (m mol/L) Final Cl 09/26/2024 11:17:27 100 98-107 (mm ol/L) Final CO2 09/26/2024 11:17:27 28 22-32 (mmo l/L) Final Anion gap 09/26/2024 11:17:27 11 7-15 (mmol /L) Final Glucose 09/26/2024 11:17:27 100 70-120 (mg /dL) Final Albumin 09/26/2024 11:17:27 4.7 3.8-5.0 (g /dL) Final AST (Aspartate aminotransferase) 09/26/2024 11:17:27 22 10-35 (U/L) Final Alk Phos 09/26/2024 11:17:27 47 35-130 (U/ L) Final Bilirubin, Total 09/26/2024 11:17:27 0.3 <=1 .2 (mg/dL) Final Calcium 09/26/2024 11:17:27 10.1 8.4-10.2 ( mg/dL) Final Protein 09/26/2024 11:17:27 6.9 6.0-8.3 (g /dL) Final ALT (Alanine aminotransferase) 09/26/2024 11:17:27 18 10-35 (U/L) Final Performing Location [facility] [address] [place] [address]
--- OUTSIDE RECORDS SUMMARY | 2024-10-15 04:28 | External Medical Summary | Summary of Care ---
Author Name Unknown Organization [facility] Address [address] [place] [address] Phone [phone] Care Team Providers Care Night Order Selector Name Role Phone Preston Villagran MD Primary Care Provider + Reason for Visit * Reason Onset Date Comments Test Results 10/01/2024 Encounter Details Date Type Department Care Team (Late st Contact Info) Description 10/01/2024 Telephone General Internal Medicine 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/17/2016 Chronic migraine 10/06/2015 Lumbar degenerative disc disease 10/21/2014 GERD (gastroesophageal reflux disease) 2 Overview (03/04/2019): 02/23-EGD-nml ,2mm gastric polyp Gastroparesis 08/21/2012 HTN, goal below 140/90 04/26/2011 Mixed hyperlipidemia 04/26/2011 documented as of this encounter (statuses as of 10/01/2024) Resolved Problems Problem Noted Date Diagnosed Date Resolved Date Protein-calorie malnutrition 06/06/2020 12/01/2020 Headache 02/11/2015 06/08/2017 Thoracic aortic aneurysm 06/04/2011 Overview (06/04/2011): Echo needed to follow Diverticulitis of colon 07/2018 documented as of this encounter (statuses as of 10/01/2024) Immunizations Name Administration Dates Next Due COVID-19 mRNA, LNP-s, No Pre serve, 2-Dose Series ([employer]) 08/07/2021,01/14/2021,12/17/2020 COVID-19, LNP-s, No Preserve , Jose Juan-sucrose, Ages 12+ (Pfizer) 02/24/2022 COVID-19, MRNA-LNP, PF, 30 M CG/0.3 mL, 12 YRS AND ABOVE, IM ([facility]) 08/04/2023 Covid-19, Mrna, Lnp-s, Pf, B ivalent, 30 Mcg, IM, 12 yrs and above ([employer]) 10/11/2022 Pneumococcal Conjugate Vacc, 13 Valent (Prevnar) [...] encounter Miscellaneous Notes * Telephone Encounter - Iván Oh RN - 10/01/2024 8:28 AM EST Called patient and informed her of Susana's previous message. She verbalized understanding of all information. * Telephone Encounter - Iván Oh RN - 10/01/2024 8:26 AM EST ----- Message from Susana Brown sent at 10/01/2024 8:09 AM EST ----- Abdominal ultrasound showing incidental cysts of bilateral kidneys--these would not be contributingto pt's symptoms. Otherwise US looked normal. documented in this encounter Plan of Treatment Upcoming Encounters Date Type Department Care Team (Late st Contact Info) Description 10/08/2024 12:30 PM EST Office Visit Otolaryngology [facility] [address] [place] [address] Jt Flannery DO [address] [place] [address] Rosa Rubi Au.D. [address] [place] [address] 10/10/2024 11:20 AM EST Office Visit General Internal Medicine [facility] [address] [place] [address] Susana Brown PAJefC 200 [facility] [address] 10/15/2024 12:00 PM EST Office Visit General Internal Medicine [facility] [address] [facility] [place], [place] [address] Preston Villagran MD 200 [facility] [place], [place] [address] 10/18/2024 11:00 AM EST Office Visit Cardiology, [facility] [address] [place] [address] Iraj Arevalo PA-C [address] [facility] [address] 02/05/2025 10:00 AM EDT Office Visit Rheumatology [facility] [address] [place], [place] [address] Adeola Chavis CRNP [address] [place] [address] Health Maintenance Due Date Last Done Comments Adult Wellness Visit 05/25/2024 05/25/2023 Depression Screening 05/25/2024 05/25/2023 DXA Scan 06/09/2024 06/09/2022, 0801/2022, 05/21/2020, Additional history exists COVID-19 Vaccine ( season) 2024 08/04/2023, 10/11/2022, 02/24/2022, Additional history exists CKD PHOS USE SMARTSET 69538 08/11/2024 10/0 03/2023, 07/29/2022, 06/30/2021 HbA1c 08/11/2024 08/11/2023, 01/05, 07/29/2022, Additional history exists Albumin/Creatinine Ratio 02/15/2025 024, 01/21/2023, 01/06/2022 CKD HGB USE SMARTSET 95581 09/26/202509/26, 09/26/2024, 06/21/2024, Additional history exists DTap/Tdap Vaccines (3 - Td or Tdap) 08/23/2033 08/23/2023, 08/21/2012 Pneumococcal Vaccine: 65+ Years Completed 11/17/2016, 11/21/2001 Zoster Vaccines Completed 03/21/2020, 0301/2020, 12/08/2008 Influenza Vaccine (FLU shot) Completed 02/2024, 07/04/2023, 07/04/2023, Additional history exists VITAMIN D LEVEL ONCE IN A LIFETIME-USE SMARTSET# 76946 Completed 07/11/2024, 02/14/2024, 08/11/2023, Additional history exists [...] this encounter Medical Devices Implanted Type Area Cupola Melting Supervisor Device Identifier Shelf Expiration Date Model / Serial / Lot Lens Intraoc 21.0 - [id number] - [id number] Implanted:Qty: 1 on 02/08/2017 by Markell Montana MD at OR [facility] Right: Eye [employer] 07/07/2021 [id number] / [id number] / Lens Intraoc 22.0 - [id number] - [id number] Implanted:Qty: 1 on 02/22/2017 by Markell Montana MD at OR [facility] Left: Eye [employer]OM[employer] 08/06/2021 [id number] / [id number] documented as of this encounter Advance Directives [...] and were consensually agreed upon. Care Teams Night Order Selector Relationship Specialty Start Date End Date Preston Villagran MD [address] [place] [address] PCP - General Internal Medicine 01/05/22 documented as of this encounter
--- OUTSIDE RECORDS SUMMARY | 2024-10-15 04:28 | External Medical Summary ---
Author Name Unknown Address Unknown Organization [id number]:[facility] - [address] [facility] [address] Laboratory Report Ordering Provider Test Date Status BILLY BLANCHARD 09/26/2024 11:17:27 Final Observation Date Value Abnormality Reference (Units ) Status SYNC LEUKOCYTES IN BLOOD BY AUTOMATED COUNT 09/26/2024 11:17:27 6.80 4.00-10.80 (K/uL) Final Segs 09/26/2024 11:17:27 67.7 40.0-75.0 (%) Final Lymphs % 09/26/2024 11:17:27 23.5 18.0-42.0 (%) Final Monos 09/26/2024 11:17:27 6.6 1.0-11.0 (%) Final Eosinophils 09/26/2024 11:17:27 0.9 0.0-6.0 (%) Final Basos 09/26/2024 11:17:27 0.6 0.0-2.0 (%) Final Immature Granulocyte, Percent 09/26/2024 11:17:27 0.7 0.0-2.0 (%) Final Absolute Segs 09/26/2024 11:17:27 4.60 1.80-7.70 (K/uL) Final Lymphs, absolute 09/26/2024 11:17:27 1.60 1.00-4.80 (K/ul) Final Monos, Abs 09/26/2024 11:17:27 0.45 0.00-1.10 (K/uL) Final Eos, Abs 09/26/2024 11:17:27 0.06 0.00-0.70 (K/uL) Final Basos, Abs 09/26/2024 11:17:27 0.04 0.00-0.20 (K/uL) Final Immature Granulocytes, Number 09/26/2024 11:17:27 0.05 0.00-0.20 (K/uL) Final Performing Location [facility] - [facility] [place] [address]
--- OUTSIDE RECORDS SUMMARY | 2024-10-15 04:28 | External Medical Summary ---
Author Name Unknown Address Unknown Organization [id number]:[facility] - [address] [facility] [address] Laboratory Report Ordering Provider Test Date Status BILLY BLANCHARD 09/26/2024 11:17:27 Final Observation Date Value Abnormality Reference (Units ) Status WBC, Total 09/26/2024 11:17:27 6.80 4.00-10.8 0 (K/uL) Final RBC 09/26/2024 11:17:27 4.22 3.85-5.15 (M/uL) Final Hemoglobin 09/26/2024 11:17:27 13.3 12.0-15.3 (g/dL) Final Anemia reflex testing trigge rs on a HGB < 12.0 for Females and HGB < 13.0 for Males in accordance with the WHO Anemia Guidelines
Anemia reflex testing triggers on a HGB < 12.0 for Females and HGB < 13.0 for Males in accordance with the WHO Anemia Guidelines HCT 09/26/2024 11:17:27 41.8 36.0-45.2 (%) Final MCV 09/26/2024 11:17:27 99.1 81.5-97.5 (fL) Final MCH 09/26/2024 11:17:27 31.5 27.0-34.0 (pg) Final MCHC 09/26/2024 11:17:27 31.8 32.0-36.0 (g/dL) Final RDW 09/26/2024 11:17:27 12.8 11.5-15.5 (%) Final Platelets 09/26/2024 11:17:27 225 140-400 (K /uL) Final MPV 09/26/2024 11:17:27 10.4 6.6-11.1 ( fL) Final Nucleated erythrocytes/100 leukocytes [Ratio] in Blood by Automated count 09/26/2024 11:17:27 0 <=0 (/100 WBCs) Fi nal Performing Location [facility] - [address] [facility] [address]
--- OUTSIDE RECORDS SUMMARY | 2024-10-15 04:28 | External Medical Summary | Summary of Care ---
Author Name Unknown Organization [facility] Address [address] [place] [address] Phone [phone] Care Team Providers Care Heel Room Supervisor Name Role Phone Preston Villagran MD Primary Care Provider + Reason for Visit * Reason Comments Outpatient Testing Encounter Details Date Type Department Care Team (Late st Contact Info) Description 09/26/2024 11:20 AM EST Laboratory Laboratory [facility] [address] [place] [phone] [place], Lab Scenery [address] [facility] [place] [address] RUQ abdominal pain; Epigastric pain Allergies Active Allergy Reactions Criticality Noted Date [...] 09/26/2024) Medications VITAMIN D 1000 UNITS PO CAPSIndications:V [...] skin cancer 03/06/2018 Overview (03/06/2018): BCC right hinduism 08/23 Enlarged thoracic aorta 11/17/2016 Chronic migraine [...] mRNA, LNP-s, No Pre serve, 2-Dose Series ([employer]) 08/07/2021,01/14/2021,12/17/2020 COVID-19, LNP-s, No Preserve , Jose Juan-sucrose, Ages 12+ (Pfizer) 02/24/2022 COVID-19, MRNA-LNP, PF, 30 M CG/0.3 mL, 12 YRS AND ABOVE, IM ([facility]) 08/04/2023 Covid-19, Mrna, Lnp-s, Pf, B ivalent, 30 Mcg, IM, 12 yrs and above ([employer]) 10/11/2022 Pneumococcal Conjugate Vacc, 13 Valent (Prevnar) [...] Description 09/28/2024 2:00 PM EST Imaging Radiology [facility] 2nd [facility] [address] [place] [address] 10/08/2024 12:30 PM EST Office Visit Otolaryngology [facility] [address] [place] [address] Jt Flannery DO [address] [place] [address] Rosa Rubi Au.D. [address] [place] [address] 10/10/2024 11:20 AM EST Office Visit General Internal Medicine [facility] [address] [place] [address] Susana Brown PA-C [address] [place] [address] 10/15/2024 12:00 PM EST Office Visit General Internal Medicine [facility] [address] [place] [address] Preston Villagran MD [address] [place] [address] 10/18/2024 11:00 AM EST Office Visit Cardiology, [facility] [address] [place] [address] Iraj Arevalo PA-C [address] [place] [address] 02/05/2025 10:00 AM EDT Office Visit Rheumatology [facility] [address] [place] [address] Adeola Chavis CRNP [address] [place] [address] Pending Results Name Type Priority Associated Diagnoses Date /Time COMPREHENSIVE METABOLIC PANEL Lab Routine RUQ abdominal pain Epigastric pain 09/26/2024 11:17 AM EST CBC WITH WBC DIFFERENTIAL AND ANEMIA REFLEX WORKUP Lab Routine RUQ abdominal pain Epigastric pain 09/26/2024 11:17 AM EST ANEMIA CBC Lab Routine RUQ abdominal pain Epigastric pain 09/26/2024 11:17 AM EST DIFFERENTIAL, AUTOMATED Lab Routine RUQ abdominal pain Epigastric pain 09/26/2024 11:17 AM EST ANEMIA REFLEX CHEMISTRY HOLD Lab Routine RUQ abdominal pain Epigastric pain 09/26/2024 11:17 AM EST Health Maintenance Due Date Last Done Comments Adult Wellness Visit 05/25/2024 05/25/2023 Depression Screening 05/25/2024 05/25/2023 DXA Scan 06/09/2024 06/09/2022, 01/2022, 05/21/2020, Additional history exists CKD PHOS USE SMARTSET 25086 08/11/2024 100 03/2023, 07/29/2022, 06/30/2021 HbA1c 08/11/2024 08/11/2023, 01/05, 07/29/2022, Additional history exists COVID-19 Vaccine ( season) 2024 08/04/2023, 10/11/2022, 02/24/2022, Additional history exists Postponed from 07/08/2024 (Unavailable) Albumin/Creatinine Ratio 02/15/2025 024, 01/21/2023, 01/06/2022 CKD HGB USE SMARTSET 64904 06/21/202506/21, 06/21/2024, 03/07/2024, Additional history exists DTap/Tdap Vaccines (3 - Td or Tdap) 08/23/2033 08/23/2023, 08/21/2012 Pneumococcal Vaccine: 65+ Years Completed 11/17/2016, 11/21/2001 Zoster Vaccines Completed 03/21/2020, 01/2020, 12/08/2008 Influenza Vaccine (FLU shot) Completed 07/11/2024, 07/04/2023, 07/04/2023, Additional history exists VITAMIN D LEVEL ONCE IN A LIFETIME-USE SMARTSET# 89072 Completed 07/11/2024, 02/14/2024, 08/11/2023, Additional history exists [...] this encounter Medical Devices Implanted Type Area Cable Mechanic Device Identifier Shelf Expiration Date Model / Serial / Lot Lens Intraoc 21.0 - [id number] - [id number] Implanted:Qty: 1 on 02/08/2017 by Markell Montana MD at OR [facility] Right: Eye [employer] 07/07/2021 [id number] / [id number] / Lens Intraoc 22.0 - [id number] - [id number] Implanted:Qty: 1 on 02/22/2017 by Markell Montana MD at OR [facility] Left: Eye [employer] 08/06/2021 [id number] / [id number] / [id number] documented as of this encounter Visit Diagnoses Diagnosis RUQ abdominal pain Abdominal pain, right upper quadrant Epigastric pain Abdominal pain, epigastric documented in this encounter Advance Directives * [...] and were consensually agreed upon. Care Teams Heel Room Supervisor Relationship Specialty Start Date End Date Preston Villagran MD [address] [place] [address] PCP - General Internal Medicine 01/05/22 documented as of this encounter
--- OUTSIDE RECORDS SUMMARY | 2024-10-15 04:29 | External Medical Summary ---
Author Name Unknown Address Unknown Organization K01:[facility] - [address] [place] [address] Laboratory Report Ordering Provider Test Date Status VONNIE HAYES 07/11/2024 12:21:12 Final Observation Date Value Abnormality Reference (Units ) Status Vitamin B12 07/11/2024 12:21:12 570 400-6797 (pg/mL) Final Performing Location [facility] - [address] [place] [address]
--- OUTSIDE RECORDS SUMMARY | 2024-10-15 04:29 | External Medical Summary ---
Author Name Unknown Address Unknown Organization K01:[facility] - [address] [place] [address] Laboratory Report Ordering Provider Test Date Status VONNIE HAYES 07/11/2024 12:21:12 Final Observation Date Value Abnormality Reference (Units ) Status Iron 07/11/2024 12:21:12 82 33-151 (ug /dL) Final Iron-binding capacity 07/11/2024 12:21:12 297 250-425 (ug/dL) Final Transferrin Sat % 07/11/2024 12:21:12 28 15 -55 (%) Final Performing Location [facility] - [address] [place] [address]
--- OUTSIDE RECORDS SUMMARY | 2024-10-15 04:29 | External Medical Summary | Summary of Care ---
Author Name Unknown Organization [facility] Address [address] [place] [address] Phone [phone] Care Team Providers Care Bag Loader Name Role Phone Preston Vlilagran MD Primary Care Provider + Reason for Visit * Reason Comments eRx-Medication Refill Encounter Details Date Type Department Care Team (Late st Contact Info) Description 07/18/2024 Refill Cardiology, [facility] [address] [place] [address] Bacilio Lopez DO [address] [facility] [place] [address] HTN, goal below 140/90; Paroxysmal atrial fibrillation (HCC) Allergies Active Allergy Reactions Criticality Noted Date [...] as of this encounter (statuses as of 07/18/2024) Medications Medication Sig Dispensed Refills Start Date [...] 150 MG Oral Capsule (Cleocin) 01/25/2022 Active SUMAtriptan Succinate 100 MG Oral TabletIndications :Migraine without aura and without status migrainosus, not intractable TAKE 1 TABLET BY MOUTH DAILY NEEDED FOR MIGRAINE(S) 36 Tablet 1 10/10/2023 Active Rosuvastatin Calcium 5 MG Oral Tablet (Crestor)Indicati ons:Dyslipidemia, goal LDL below 130 Take 1 Tablet by mouth in the morning. 90 Tablet 3 10/11/2023 Active Dicyclomine HCl 10 MG Oral CapsuleIndication s:Abdominal cramping Take 1 Capsule by mouth 4 times a day as needed for Cramping. for abdominal pain 120 Capsule 11 11/08/2023 Active Apixaban 2.5 MG Oral Tablet (Eliquis)Indicati [...] 07/02/2024 Active Gabapentin 100 MG Oral Capsule (Neurontin)Indica tions:RLS (restless legs syndrome) Take 1 Capsule by mouth at bedtime. In 3 days increase to 2 tab and in 3 days increase to 3 tab 90 Capsule 5 07/11/2024 Active Terazosin HCl 1 MG Oral Capsule (Hytrin)Indicatio ns:HTN, goal below 140/90,Paroxysmal atrial fibrillation (HCC) TAKE 1 CAPSULE BY MOUTH AT BEDTIME 90 Capsule 3 07/18/2024 Active Terazosin HCl 1 MG Oral Capsule (Hytrin)Indicatio ns:HTN, goal below 140/90,Paroxysmal atrial fibrillation (HCC) TAKE 1 CAPSULE BY MOUTH AT BEDTIME 90 Capsule 3 10/04/2023 4 Discontinued documented as of this encounter (statuses as of 07/18/2024) Active Problems Problem Noted Date Diagnosed Date [...] nonmelanoma skin cancer 03/06/2018 Overview: BCC right congregational 08/23 Enlarged thoracic aorta 11/17/2016 Chronic migraine 10/06/2015 Lumbar degenerative disc disease 10/21/2014 GERD (gastroesophageal reflux disease) 2 Overview: 02/23-EGD-nml ,2mm gastric polyp Gastroparesis 08/21/2012 HTN, goal below 140/90 04/26/2011 Mixed hyperlipidemia 04/26/2011 documented as of this encounter (statuses as of 07/18/2024) Resolved Problems Problem Noted Date Diagnosed Date Resolved Date Protein-calorie malnutrition 06/06/2020 12/01/2020 Headache 02/11/2015 06/08/2017 Thoracic aortic aneurysm 06/04/2011 Overview: Echo needed to follow Diverticulitis of colon 07/2018 documented as of this encounter (statuses as of 07/18/2024) Immunizations Name Administration Dates Next Due COVID-19 mRNA, LNP-s, No Pre serve, 2-Dose Series ([employer]) 08/07/2021,01/14/2021,12/17/2020 COVID-19, LNP-s, No Preserve , Jose Juan-sucrose, Ages 12+ ([employer]) 02/24/2022 COVID-19, MRNA-LNP, 23-24, P F, 30 MCG/0.3 mL, 12 YRS AND ABOVE, IM ([employer]) 08/04/2023 Covid-19, Mrna, Lnp-s, Pf, B ivalent, 30 Mcg, IM, 12 yrs and above ([employer]) 10/11/2022 Pneumococcal Conjugate Vacc, 13 Valent (Prevnar) 11/17/2016 Pneumococcal Polysaccharide PPV23 (Pneumovax) 11/21/2001 Season Influenza, Quad, PF, Adjuvanted, 65+ Yrs, IM (FLUAD) 07/31/2021,08/11/2020 Seasonal Influenza Virus Vac cine, Unspecified Formulation 07/18/2019,08/07/2018,08/09/2017,07/09,09/03/2014,08/21/2013,08/03/20 12,07/27/2011 Seasonal Influenza, High Dos e, Trivalent, PF, IM (Fluzone HD) 07/11/2024 Seasonal Influenza, PF, 6 M & above, IM , (FluLaval or Fluzone) 07/04/2023,08/07/2018,08/09/2017 Seasonal Influenza, Quadriva lent Hd (Fluzone Hd) 07/29/2022,08/11/2020 Seasonal Influenza, Quadriva lent Hd, 65+ Yrs 07/04/2023,06/20/2023,07/29/2022,04/2021,07/31/2021 Seasonal Influenza, Quadriva lent, No Preserve, IM 08/04/2016,08/22/2015 08/04/2017 Seasonal Influenza, Trivalen t, (IIV3), with Preserv, (Fluzone) 09/03/2014,08/21/2013,08/03/2012,07/09 Seasonal Influenza, Trivalen t, Adjuvanted, 65+ YRS, [...] encounter Miscellaneous Notes * Telephone Encounter - Kelly Morales PA-C - 07/18/2024 1:21 PM EDT Signed Prescriptions: Disp Refills Terazosin HCl 1 MG Oral Capsule (Hytrin) 90 Cap*3 Sig: TAKE 1 CAPSULE BY MOUTH AT BEDTIME Authorizing Provider: KELLY MORALES * Telephone Encounter - Lupis Rosales CMA - 07/18/2024 1:17 PM EDTPending Prescriptions: Disp Refills Terazosin HCl 1 MG Oral Capsule [Pharmacy *90 Cap*3 Sig: TAKE 1 CAPSULE BY MOUTH AT BEDTIME * Telephone Encounter - Lupis Rosales CMA - 07/18/2024 1:17 PM EDT Did you pend patient's preferred pharmacy and medication before forwarding?yes Pharmacy: [facility]-[address] Pending Prescriptions: Disp Refills Terazosin HCl 1 MG Oral Capsule (Hytrin) *90 Cap*3 Sig: TAKE 1 CAPSULE BY MOUTH AT BEDTIME Last Visit: 05/11/2024 (in office), 02/26/2020 (telemedicine) Next Visit: 10/18/2024 If no future appointments scheduled, and last appointment is greater than a year ago, please schedule patient for a follow-up appointment Last date the medication was ordered: 10-04-2023 Is this request for a controlled substance?No Urine Drug Screen:No results found. However, due to the size of the patient record, not all encounters were searched. Please check Results Review for a complete set of results. Patient Phone Numbers Labs: Lab Results Component Value Date/Time CREAT 0.9 06/21/2024 11:02 AM CREAT 0.9 12/01/2020 10:52 AM POTASSIUM 4.3 06/21/2024 11:02 AM POTASSIUM 4.7 12/01/2020 10:52 AM TSH 1.68 06/21/2024 11:02 AM TSH 1.50 04/04/2020 12:09 PM LDL 78 08/11/2023 09:28 AM LDL 70 08/10/2021 09:27 AM LDL 131 (H) 01/14/2020 12:51 PM LDL NOT APPLICABLE 01/14/2020 12:51 PM ALT 13 03/07/2024 11:48 AM ALT 31 12/01/2020 10:52 AM HGBA1C 5.8 (H) 08/11/2023 09:28 AM HGBA1C 5.8 (H) 12/01/2020 10:52 AM documented in this encounter Plan of Treatment Upcoming Encounters Date Type Department Care Team (Late st Contact Info) Description 08/02/2024 10:30 AM EDT Nurse Only Rheumatology [place] [id number] [facility] [place] [address] Pf, Nurse Rheum [address] [place] [address] [place] [address] 09/13/2024 10:20 AM EST Office Visit General Internal Medicine [facility] [address] [facility] [place] [address] Preston Villagran MD [address] [facility] [place] [address] 09/17/2024 10:30 AM EST Imaging Radiology [facility] 2nd [facility] [address] [place] [address] 10/18/2024 11:00 AM EST Office Visit Cardiology, [facility] [address] [place] [address] Iraj Arevalo, PA-C [address] [place] [address] Health Maintenance Due Date Last Done Comments Adult Wellness Visit 05/25/2024 05/25/2023 Depression Screening 05/25/2024 05/25/2023 DXA Scan 06/09/2024 06/09/2022, 0801/2022, 05/21/2020, Additional history exists COVID-19 Vaccine (2022- season) 2024 08/04/2023, 10/11/2022, 02/24/2022, Additional history exists CKD PHOS USE SMARTSET 81642 08/11/2024 10/0 03/2023, 07/29/2022, 06/30/2021 HbA1c 08/11/2024 08/11/2023, 01/05, 07/29/2022, Additional history exists Albumin/Creatinine Ratio 02/15/2025 024, 01/21/2023, 01/06/2022 CKD HGB USE SMARTSET 86602 06/21/202506/21, 06/21/2024, 03/07/2024, Additional history exists DTap/Tdap Vaccines (3 - Td or Tdap) 08/23/2033 08/23/2023, 08/21/2012 Pneumococcal Vaccine: 65+ Years Completed 11/17/2016, 11/21/2001 Zoster Vaccines Completed 03/21/2020, 01/2020, 12/08/2008 Influenza Vaccine (FLU shot) Completed 02/2024, 07/04/2023, 07/04/2023, Additional history exists VITAMIN D LEVEL ONCE IN A LIFETIME-USE SMARTSET# [id number] Completed 07/11/2024, 02/14/2024, 08/11/2023, Additional history exists [...] this encounter Medical Devices Implanted Type Area Corn Lab Technician Device Identifier Shelf Expiration Date Model / Serial / Lot Lens Intraoc 21.0 - [id number] - [id number] Implanted:Qty: 1 on 02/08/2017 by Markell Montana MD at OR [facility] Right: Eye [employer] 07/07/2021 [id number] / [id number] / Lens Intraoc 22.0 - [id number] - [id number] Implanted:Qty: 1 on 02/22/2017 by Markell Montana MD at OR [facility] Left: Eye [employer] 08/06/2021 [id number] / [id number] documented as of this encounter Visit Diagnoses Diagnosis HTN, goal below 140/90 Unspecified essential hypertension Paroxysmal atrial fibrillation (HCC) Atrial fibrillation documented in this encounter Advance Directives * [...] and were consensually agreed upon. Care Teams Bag Loader Relationship Specialty Start Date End Date Preston Villagran MD [address] [place] [address] PCP - General Internal Medicine 01/05/22 documented as of this encounter
--- OUTSIDE RECORDS SUMMARY | 2024-10-15 04:29 | External Medical Summary ---
Author Name Unknown Address Unknown Organization K09:[facility] [place] [address] Laboratory Report Ordering Provider Test Date Status VONNIE HAYES 07/11/2024 12:21:12 Final Observation Date Value Abnormality Reference (Units ) Status Magnesium 07/11/2024 12:21:12 2.2 1.5-2.6 (m g/dL) Final Performing Location [facility] [place] [address]
--- OUTSIDE RECORDS SUMMARY | 2024-10-15 04:29 | External Medical Summary | Summary of Care ---
Author Name Unknown Organization [facility] Address [address] [place] [address] Phone [phone] Care Team Providers Care Pss Delivery Professional Name Role Phone Preston Saenz MD Primary Care Provider + Reason for Visit * Reason Comments eRx-Medication Refill Encounter Details Date Type Department Care Team (Late st Contact Info) Description 07/21/2024 Refill General Internal Medicine [facility] [address] [place] [address] Preston Saenz MD [address] [place] [address] Migraine without aura and without status migrainosus, not intractable Allergies Active Allergy Reactions Criticality Noted Date [...] as of this encounter (statuses as of 07/23/2024) Medications Medication Sig Dispensed Refills Start Date [...] 01/25/2022 Active Dicyclomine HCl 10 MG Oral CapsuleIndication [...] 07/19/2024 Active SUMAtriptan Succinate 100 MG Oral TabletIndications :Migraine without aura and without status migrainosus, not intractable TAKE 1 TABLET BY MOUTH DAILY NEEDED FOR MIGRAINE(S) 36 Tablet 1 07/23/2024 Active SUMAtriptan Succinate 100 MG Oral TabletIndications :Migraine without aura and without status migrainosus, not intractable TAKE 1 TABLET BY MOUTH DAILY NEEDED FOR MIGRAINE(S) 36 Tablet 1 10/10/2023 4 Discontinued documented as of this encounter (statuses as of 07/23/2024) Active Problems Problem Noted Date Diagnosed Date [...] nonmelanoma skin cancer 03/06/2018 Overview: BCC right quaker 08/23 Enlarged thoracic aorta 11/17/2016 Chronic migraine 10/06/2015 Lumbar degenerative disc disease 10/21/2014 GERD (gastroesophageal reflux disease) 2 Overview: 02/23-EGD-nml ,2mm gastric polyp Gastroparesis 08/21/2012 HTN, goal below 140/90 04/26/2011 Mixed hyperlipidemia 04/26/2011 documented as of this encounter (statuses as of 07/23/2024) Resolved Problems Problem Noted Date Diagnosed Date Resolved Date Protein-calorie malnutrition 06/06/2020 12/01/2020 Headache 02/11/2015 06/08/2017 Thoracic aortic aneurysm 06/04/2011 Overview: Echo needed to follow Diverticulitis of colon 07/2018 documented as of this encounter (statuses as of 07/23/2024) Immunizations Name Administration Dates Next Due COVID-19 mRNA, LNP-s, No Pre serve, 2-Dose Series ([employer]) 08/07/2021,01/14/2021,12/17/2020 COVID-19, LNP-s, No Preserve , Jose Juan-sucrose, Ages 12+ ([employer]) 02/24/2022 COVID-19, MRNA-LNP, 23-24, P F, 30 MCG/0.3 mL, 12 YRS AND ABOVE, IM ([facility]) 08/04/2023 Covid-19, Mrna, Lnp-s, Pf, B ivalent, 30 Mcg, IM, 12 yrs and above ([employer]) 10/11/2022 Pneumococcal Conjugate Vacc, 13 Valent (Prevnar) [...] 18 years and over) Not on file 3 Are you (or your family) kayla eless [...] encounter Miscellaneous Notes * Telephone Encounter - Armand Damian RPh - 07/23/2024 1:20 PM EDTSigned Prescriptions: Disp Refills SUMAtriptan Succinate 100 MG Oral Tablet 36 Tab*1 Sig: TAKE 1 TABLET BY MOUTH DAILY NEEDED FOR MIGRAINE(S)Authorizing Provider: PRESTON SAENZ User: ARMAND DAMIAN documented in this encounter Plan of Treatment Upcoming Encounters Date Type Department Care Team (Late st Contact Info) Description 08/02/2024 10:30 AM EDT Nurse Only Rheumatology [facility] [address] [place] [address] Pf, Nurse Rheum [address] [place] [address] 09/13/2024 10:20 AM EST Office Visit General Internal Medicine [facility] [address] [place] [address] Preston Saenz MD 200 [facility] [place] [address] 09/17/2024 10:30 AM EST Imaging Radiology [facility] 2nd [facility] [address] [facility] [place] [address] 10/18/2024 11:00 AM EST Office Visit Cardiology, [facility] [address] [place] [address] Iraj Arevalo PA-C [address] [place] [address] Health Maintenance Due Date Last Done Comments Adult Wellness Visit 05/25/2024 05/25/2023 Depression Screening 05/25/2024 05/25/2023 DXA Scan 06/09/2024 06/09/2022, 01/2022, 05/21/2020, Additional history exists COVID-19 Vaccine ( season) 2024 08/04/2023, 10/11/2022, 02/24/2022, Additional history exists CKD PHOS USE SMARTSET 58719 08/11/202403/2023, 07/29/2022, 06/30/2021 HbA1c 08/11/2024 08/11/2023, 01/05, 07/29/2022, Additional history exists Albumin/Creatinine Ratio 02/15/2025 024, 01/21/2023, 01/06/2022 CKD HGB USE SMARTSET 40154 06/21/202506/21, 06/21/2024, 03/07/2024, Additional history exists DTap/Tdap Vaccines (3 - Td or Tdap) 08/23/2033 08/23/2023, 08/21/2012 Pneumococcal Vaccine: 65+ Years Completed 11/17/2016, 11/21/2001 Zoster Vaccines Completed 03/21/2020, 03/0 01/2020, 12/08/2008 Influenza Vaccine (FLU shot) Completed 02/2024, 07/04/2023, 07/04/2023, Additional history exists VITAMIN D LEVEL ONCE IN A LIFETIME-USE SMARTSET# [id number] Completed 07/11/2024, 02/14/2024, 08/11/2023, Additional history exists [...] this encounter Medical Devices Implanted Type Area Case Loader Operator Device Identifier Shelf Expiration Date Model / Serial / Lot Lens Intraoc 21.0 - [id number] - [id number] Implanted:Qty: 1 on 02/08/2017 by Markell Montana MD at OR [facility] Right: Eye [employer] 07/07/2021 [id number] / [id number] / Lens Intraoc 22.0 - [id number] - [id number] Implanted:Qty: 1 on 02/22/2017 by Markell Montana MD at OR [facility] Left: Eye [employer] 08/06/2021 [id number] / [id number] / [id number] documented as of this encounter Visit Diagnoses Diagnosis Migraine without aura and without status migrainosus, not intractable Migraine without aura, without mention of intractable migraine without mention of status migrainosus documented in this encounter Advance Directives * [...] and were consensually agreed upon. Care Teams Pss Delivery Professional Relationship Specialty Start Date End Date Preston Saenz MD [address] [place] [address] PCP - General Internal Medicine 01/05/22 documented as of this encounter
--- OUTSIDE RECORDS SUMMARY | 2024-10-15 04:29 | External Medical Summary ---
Author Name Unknown Address Unknown Organization K01:[facility] [place] [address] [place] [address] Laboratory Report Ordering Provider Test Date Status VONNIE HAYES 07/11/2024 12:21:12 Final Observation Date Value Abnormality Reference (Units ) Status Folic Acid 07/11/2024 12:21:12 12.7 >4.5 (ng/ mL) Final Performing Location [facility] - [address] [place] [address]
--- OUTSIDE RECORDS SUMMARY | 2024-10-15 04:29 | External Medical Summary | Summary of Care ---
Author Name Unknown Organization [facility] Address [address] [place] [address] Phone [phone] Care Team Providers Care American Board Certified Orthotist Name Role Phone Preston Saenz MD Primary Care Provider + Reason for Visit * Reason Comments eRx-Medication Refill Encounter Details Date Type Department Care Team (Late st Contact Info) Description 07/18/2024 Refill General Internal Medicine [facility] [address] [place] [address] Preston Saenz MD [address] [place] [address] Dyslipidemia, goal LDL below 130 Allergies Active Allergy Reactions Criticality Noted Date [...] as of this encounter (statuses as of 07/19/2024) Medications Medication Sig Dispensed Refills Start Date [...] FOR MIGRAINE(S) 36 Tablet 1 10/10/2023 Active Dicyclomine HCl 10 MG Oral CapsuleIndication [...] THE MORNING 90 Tablet 3 07/19/2024 Active Rosuvastatin Calcium 5 MG Oral Tablet (Crestor)Indicati ons:Dyslipidemia, goal LDL below 130 Take 1 Tablet by mouth in the morning. 90 Tablet 3 10/11/2023 Discontinued documented as of this encounter (statuses as of 07/19/2024) Active Problems Problem Noted Date Diagnosed Date [...] nonmelanoma skin cancer 03/06/2018 Overview: BCC right scientology 08/23 Enlarged thoracic aorta 11/17/2016 Chronic migraine 10/06/2015 Lumbar degenerative disc disease 10/21/2014 GERD (gastroesophageal reflux disease) 2 Overview: 02/23-EGD-nml ,2mm gastric polyp Gastroparesis 08/21/2012 HTN, goal below 140/90 04/26/2011 Mixed hyperlipidemia 04/26/2011 documented as of this encounter (statuses as of 07/19/2024) Resolved Problems Problem Noted Date Diagnosed Date Resolved Date Protein-calorie malnutrition 06/06/2020 12/01/2020 Headache 02/11/2015 06/08/2017 Thoracic aortic aneurysm 06/04/2011 Overview: Echo needed to follow Diverticulitis of colon 07/2018 documented as of this encounter (statuses as of 07/19/2024) Immunizations Name Administration Dates Next Due COVID-19 mRNA, LNP-s, No Pre serve, 2-Dose Series ([employer]) 08/07/2021,01/14/2021,12/17/2020 COVID-19, LNP-s, No Preserve , Josej Uan-sucrose, Ages 12+ ([employer]) 02/24/2022 COVID-19, MRNA-LNP, 23-24, P F, 30 MCG/0.3 mL, 12 YRS AND ABOVE, IM ([employer]) 08/04/2023 Covid-19, Mrna, Lnp-s, Pf, B ivalent, 30 Mcg, IM, 12 yrs and above ([employer]) 10/11/2022 Pneumococcal Conjugate Vacc, 13 Valent (Prevnar) [...] encounter Miscellaneous Notes * Telephone Encounter - Fay Paniagua RPh - 07/19/2024 4:27 PM EDT Signed Prescriptions: Disp Refills Rosuvastatin Calcium 5 MG Oral Tablet (Cre*90 Tab*3 Sig: TAKE 1 TABLET BY MOUTH IN THE MORNINGAuthorizing Provider: PRESTON SAENZ User: FAY PANIAGUA documented in this encounter Plan of Treatment Upcoming Encounters Date Type Department Care Team (Late st Contact Info) Description 08/02/2024 10:30 AM EDT Nurse Only Rheumatology [place] [address] [place] [address] Pf, Nurse Rheum [facility] [place] [address] 09/13/2024 10:20 AM EST Office Visit General Internal Medicine [facility] [address] [facility] [place] [address] Preston Saenz MD 200 [facility] [place] [address] 09/17/2024 10:30 AM EST Imaging Radiology [facility] 2nd [facility] [address] [facility] [place] [address] 10/18/2024 11:00 AM EST Office Visit Cardiology, [facility] [address] [place] [address] Iraj Arevalo PA-C [address] [place] [address] Health Maintenance Due Date Last Done Comments Adult Wellness Visit 05/25/2024 05/25/2023 Depression Screening 05/25/2024 05/25/2023 DXA Scan 06/09/2024 06/09/2022, 01/2022, 05/21/2020, Additional history exists COVID-19 Vaccine ( season) 2024 08/04/2023, 10/11/2022, 02/24/2022, Additional history exists CKD PHOS USE SMARTSET 79166 08/11/20240 03/2023, 07/29/2022, 06/30/2021 HbA1c 08/11/2024 08/11/2023, 01/05, 07/29/2022, Additional history exists Albumin/Creatinine Ratio 02/15/2025 024, 01/21/2023, 01/06/2022 CKD HGB USE SMARTSET 64980 06/21/202506/21, 06/21/2024, 03/07/2024, Additional history exists DTap/Tdap Vaccines (3 - Td or Tdap) 08/23/2033 08/23/2023, 08/21/2012 Pneumococcal Vaccine: 65+ Years Completed 11/17/2016, 11/21/2001 Zoster Vaccines Completed 03/21/2020, 03/0 01/2020, 12/08/2008 Influenza Vaccine (FLU shot) Completed 02/2024, 07/04/2023, 07/04/2023, Additional history exists VITAMIN D LEVEL ONCE IN A LIFETIME-USE SMARTSET# 09174 Completed 07/11/2024, 02/14/2024, 08/11/2023, Additional history exists [...] this encounter Medical Devices Implanted Type Area Printer Repair Technician Device Identifier Shelf Expiration Date Model / Serial / Lot Lens Intraoc 21.0 - [id number] - [id number] Implanted:Qty: 1 on 02/08/2017 by Markell Montana MD at OR [facility] Right: Eye [employer] 07/07/2021 [id number] / [id number] / Lens Intraoc 22.0 - [id number] - [id number] Implanted:Qty: 1 on 02/22/2017 by Markell Montana MD at OR [facility] Left: Eye [employer] 08/06/2021 [id number] / [id number] documented as of this encounter Visit Diagnoses Diagnosis Dyslipidemia, goal LDL below 130 Other and unspecified hyperlipidemia documented in this encounter Advance Directives * [...] and were consensually agreed upon. Care Teams American Board Certified Orthotist Relationship Specialty Start Date End Date Preston Saenz MD [address] [place] [address] PCP - General Internal Medicine 01/05/22 documented as of this encounter
--- OUTSIDE RECORDS SUMMARY | 2024-10-15 04:29 | External Medical Summary | Summary of Care ---
Author Name Unknown Organization [facility] Address [address] [place] [address] Phone [phone] Care Team Providers Care Atg Architect Name Role Phone Preston Villagran MD Primary Care Provider + Reason for Visit * Reason Onset Date Comments Medication Administration Prolia Medication Administration 08/02/2024 Prolia Encounter Details Date Type Department Care Team (Late st Contact Info) Description 08/02/2024 10:30 AM EDT Nurse Only Rheumatology [facility] [address] [place] [address] Pf, Nurse Rheum [facility] [place] [address] Medication Administration (Prolia); Medica... 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 islam 08/23 Enlarged thoracic aorta 11/17/2016 Chronic migraine 10/06/2015 Lumbar degenerative disc disease 10/21/2014 GERD (gastroesophageal reflux disease) 2 Overview: 02/23-EGD-nml ,2mm gastric polyp Gastroparesis 08/21/2012 HTN, goal below 140/90 04/26/2011 Mixed hyperlipidemia 04/26/2011 documented as of this encounter (statuses as of 08/02/2024) Resolved Problems Problem Noted Date Diagnosed Date Resolved Date Protein-calorie malnutrition 06/06/2020 12/01/2020 Headache 02/11/2015 06/08/2017 Thoracic aortic aneurysm 06/04/2011 Overview: Echo needed to follow Diverticulitis of colon 07/2018 documented as of this encounter (statuses as of 08/02/2024) Immunizations Name Administration Dates Next Due COVID-19 mRNA, LNP-s, No Pre serve, 2-Dose Series ([employer]) 08/07/2021,01/14/2021,12/17/2020 COVID-19, LNP-s, No Preserve , Jose Juan-sucrose, Ages 12+ ([employer]) 02/24/2022 COVID-19, MRNA-LNP, 23-24, P F, 30 MCG/0.3 mL, 12 YRS AND ABOVE, IM ([employer]) 08/04/2023 Covid-19, Mrna, Lnp-s, Pf, B ivalent, 30 Mcg, IM, 12 yrs and above ([employer]) 10/11/2022 Pneumococcal Conjugate Vacc, 13 Valent (Prevnar) [...] Date Smoking Tobacco: Never Smokeless Tobacco: Never Tobacco Cessation:Counseling Given: Not Answered Alcohol Use Standard Drinks/Week Comments Yes 0 [...] on file documented as of this encounter Last Filed Vital Signs Vital Sign Reading Time Taken Comments Blood Pressure - - Pulse - - Temperature 36.3 C (97.3 F) 08/02/2024 10:25 AM E DT Respiratory Rate - - Oxygen Saturation - - Inhaled Oxygen Concentration - - Weight - - Height - - Body Mass Index - - documented in this encounter Patient Instructions * Patient Instructions* Trev Dowling LPN - 08/02/2024 10:27 AM EDT MEDICATION GUIDE Prolia (OK-dee dee-a) (denosumab) Injection Read the Medication Guide that comes with Prolia before you start taking it and each time you get arefill. There may be new information. This Medication Guide does not take the place of talking withyour doctor about your medical condition or treatment. Talk to your doctor if you have any questions about Prolia. What is the most important information I should know about Prolia? Prolia can cause serious side effects includin. Low calcium levels in your blood (hypocalcemia). Prolia may lower the calcium levels in your blood. If you have low blood calcium before you start receiving Prolia, it may get worse during treatment. Your low blood calcium must be treated before you receive Prolia. Most people with low blood calcium levels do not have symptoms, but some people may have symptoms. Call your doctor right away if you have symptoms of low blood calcium such as: Spasms, twitches, or cramps in your muscles Numbness or tingling in your fingers, toes, or around your mouth Your doctor may prescribe calcium and vitamin D to help prevent low calcium levels in your blood while you take Prolia. Take calcium and vitamin D as your doctor tells you to. 2. Serious infections. Serious infections in your skin, lower stomach area (abdomen), bladder, or ear may happen if you take Prolia. Inflammation of the inner lining of the heart (endocarditis) due to an infection also mayhappen more often in people who take Prolia. You may need to go to the hospital for treatment if you develop an infection. Prolia is a medicine that may affect your immune system. People who have weakened immune system or take medicines that affect the immune system may have an increased risk for developing serious infections. Call your doctor right away if you have any of the following symptoms of infection: Fever or chills Skin that looks red or swollen and is hot or tender to touch Severe abdominal pain Frequent or urgent need to urinate or burning feeling when you urinate 3. Skin problems. Skin problems such as inflammation of your skin (dermatitis), rash, and eczema may happen if you take Prolia. Call your doctor if you have any of the following symptoms of skin problems that do not go away or get worse: Redness Itching Small bumps or patches (rash) Your skin is dry or feels like leather Blisters that ooze or become crusty Skin peeling 4. Severe jaw bone problems (osteonecrosis). Severe jaw bone problems may happen when you take Prolia. Your doctor should examine your mouth before you start Prolia. Your doctor may tell you to see your dentist before you start Prolia. It is important for you to practice good mouth care during treatment with Prolia. Call your doctor right away if you have any of these side effects. What is Prolia? Prolia is a prescription medicine used to treat osteoporosis (thinning and weakening of bone) in women after menopause (change of life) who Have an increased risk for fractures (broken bones). Cannot use another osteoporosis medicine or other osteoporosis medicines did not work well. Who should not receive Prolia? Do not take Prolia if you have been told by your doctor that your blood calcium level is too low. What should I tell my doctor before receiving Prolia? Before taking Prolia, tell your doctor if you: Have low blood calcium. Cannot take daily calcium and vitamin D. Had parathyroid or thyroid surgery (glands located in your neck). Have been told you have trouble absorbing minerals in your stomach or intestines (malabsorptionsyndrome). Have kidney problems or are on kidney dialysis. Plan to have dental surgery or teeth removed. Are or plan to become . Prolia may harm your unborn baby. Tell your doctor right away if you become while taking Prolia. Surveillance Program: Prolia is not intended for use in women. If you become while taking Prolia, talk to your doctor about enrolling with [employer]illance[employer] or call (y-640-11-[employer]). The purpose of this program is to collect information about women who have become while taking Prolia. Are breast-feeding or plan to breast-feed. It is not known if Prolia passes into your breast milk. You and your doctor should decide if you will take Prolia or breast-feed. You should not do both. Tell your doctor about all the medicines you take, including prescription and nonprescription drugs, vitamins, and herbal supplements. Know the medicines you take. Keep a list of medicines with you to show to your doctor or pharmacistwhen you get a new medicine. How will I receive Prolia? Prolia is an injection that will be given to you by a healthcare professional. Prolia is injected under your skin (subcutaneous). You will receive Prolia 1 time every 6 months. You should take calcium and vitamin D as your doctor tells you to while you receive Prolia. If you miss a dose of Prolia, you should receive your injection as soon as you can. Take good care of your teeth and gums while you receive Prolia. [place] and floss your teeth regularly. Tell your dentist that you are receiving Prolia before you have dental work. What are the possible side effects of Prolia? Prolia may cause serious side effects. See What is the most important information I should know about Prolia? Long-term effects on bone: It is not known if the use of Prolia over a long period of time may cause slow healing of broken bones or unusual fractures. The most common side effects of Prolia are: Back pain Pain in your arms and legs High cholesterol Muscle pain Bladder infection These are not all the possible side effects of Prolia. For more information, ask your doctor or pharmacist. Call your doctor for medical advice about side effects. You may report side effects to FDA at 9-041-NXN-3683. How should I handle Prolia if I need to pick it up from a pharmacy? Keep Prolia in a refrigerator at 36F to 46F (2C to 8C) in the original carton. Do not freeze Prolia. When you remove Prolia from the refrigerator, Prolia must be kept at room temperature [up to 77F (25C)] in the original carton and must be used within 14 days. Do not keep Prolia at temperatures above 77F (25C). Warm temperatures will affect how Prolia works. Do not shake Prolia. Keep Prolia in the original carton to protect from light. Keep Prolia and all medicines out of reach of children. General information about Prolia Do not give Prolia to other people even if they have the same symptoms that you have. It may harm them. This Medication Guide summarizes the most important information about Prolia. If you would like more information, talk with your doctor. You can ask your doctor or pharmacist for information about Prolia that is written for health professionals. For more information, go to www.[employer] or call [employer] at . What are the ingredients in Prolia? Active ingredient: denosumab Inactive ingredients: sorbitol, acetate, polysorbate 20 (prefilled syringe only), Water for Injection ([facility]), and sodium hydroxide What is osteoporosis? Osteoporosis is a disease in which the bones become thin and weak, increasing the chance of having a broken bone. Osteoporosis usually causes no symptoms until a fracture happens. The most common fractures are in the spine (backbone). They can shorten height, even without causing pain. Over time, the spine can become curved or deformed and the body bent over. Fractures from osteoporosis can also happen in almost any bone in the body, for example: the wrist, rib, or hip. Once you have had a fracture, the chance for more fractures greatly increases. The following risk factors increase your chance of getting fractures from osteoporosis: Past broken bones from osteoporosis Very low bone mineral density (BMD) Frequent falls Limited movement, such as using a wheelchair Medical conditions likely to cause bone loss, such as some kinds of arthritis Taking steroid medicines called glucocorticoids, such as prednisone Other medicines that may cause bone loss, for example: seizure medicines (such as phenytoin), blood thinners (such as heparin), high doses of vitamin A What can I do to treat osteoporosis? There are many steps you can take to treat osteoporosis. Taking Prolia, along with calcium and vitamin D, may be one option for you. [employer] a subsidiary of [employer] [address] [place], [place] [address] This Medication Guide has been approved by the US Food and Drug Administration. 1xxxxxx - v1 Issued: 04/2010 documented in this encounter Progress Notes * Trev Dowling LPN - 08/02/2024 10:26 AM EDT Alison Xiong presents today for administration of Prolia. She understands the benefits and risks of this treatment. An educational pamphlet was given to the patient. Prolia 60 mg was administered subcutaneously. The patient tolerated the procedure without problems. She will return in 6 months for the next injection and evaluation. Trev Dowling LPN documented in this encounter Nursing Notes * Trev Dowling LPN - 08/02/2024 10:25 AM EDT Chief Complaint Patient presents with Medication Administration Prolia documented in this encounter Plan of Treatment Upcoming Encounters Date Type Department Care Team (Late st Contact Info) Description 09/13/2024 10:20 AM EST Office Visit General Internal Medicine [facility] [address] [place] [address] Preston Villagran MD [address] [place] [address] 09/17/2024 10:30 AM EST Imaging Radiology [address] [place] [address] 10/08/2024 12:30 PM EST Office Visit Otolaryngology [facility] [address] [facility] [place] [address] Jt Flannery, [address] [place] [address] Rosa Rubi Au.D. [address] [place] [address] 10/18/2024 11:00 AM EST Office Visit Cardiology, [facility] [address] [place] [address] Iraj Arevalo PA-C [address] [place] [address] 02/05/2025 10:00 AM EDT Office Visit Rheumatology [place] [id number] [facility] [place] [address] [address] [facility] [place] [address] Health Maintenance Due Date Last Done Comments Adult Wellness Visit 05/25/2024 05/25/2023 Depression Screening 05/25/2024 05/25/2023 DXA Scan 06/09/2024 06/09/2022, 01/2022, 05/21/2020, Additional history exists COVID-19 Vaccine ( season) 2024 08/04/2023, 10/11/2022, 02/24/2022, Additional history exists CKD PHOS USE SMARTSET 20020 08/11/202403/2023, 07/29/2022, 06/30/2021 HbA1c 08/11/2024 08/11/2023, 01/05, 07/29/2022, Additional history exists Albumin/Creatinine Ratio 02/15/2025 024, 01/21/2023, 01/06/2022 CKD HGB USE SMARTSET 67882 06/21/202506/21, 06/21/2024, 03/07/2024, Additional history exists DTap/Tdap Vaccines (3 - Td or Tdap) 08/23/2033 08/23/2023, 08/21/2012 Pneumococcal Vaccine: 65+ Years Completed 11/17/2016, 11/21/2001 Zoster Vaccines Completed 03/21/2020, 01/2020, 12/08/2008 Influenza Vaccine (FLU shot) Completed 02/2024, 07/04/2023, 07/04/2023, Additional history exists VITAMIN D LEVEL ONCE IN A LIFETIME-USE SMARTSET# [id number] Completed 07/11/2024, 02/14/2024, 08/11/2023, Additional history exists [...] this encounter Medical Devices Implanted Type Area Credit Control Manager Device Identifier Shelf Expiration Date Model / Serial / Lot Lens Intraoc 21.0 - [id number] - [id number] Implanted:Qty: 1 on 02/08/2017 by Markell Montana MD at OR [facility] Right: Eye [employer] 07/07/2021 [id number] / [id number] / Lens Intraoc 22.0 - [id number] - [id number] Implanted:Qty: 1 on 02/22/2017 by Markell Montana MD at OR [facility] Left: Eye [employer]OM[employer] 08/06/2021 [id number] / [id number] / [id number] documented as of this encounter Visit Diagnoses Diagnosis Senile osteoporosis- Primary documented in this encounter Administered Medications Inactive Administered Medications - up to 3 most recent administrations Medication Order MAR Action Action Date Dose Rate Site Denosumab (Prolia) subcut inj 60 mg 60 mg, Subcutaneous, ONCE, On Elizabeth 08/02/24 at 1030, For 1 dose Given 08/02/2024 10:31 AM EDT 60 mg Arm Left Upper documented in this encounter Advance Directives * [...] and were consensually agreed upon. Care Teams Atg Architect Relationship Specialty Start Date End Date Preston Villagran MD [address] [place] [address] PCP - General Internal Medicine 01/05/22 documented as of this encounter
--- OUTSIDE RECORDS SUMMARY | 2024-10-15 04:29 | External Medical Summary | Summary of Care ---
Author Name Unknown Organization [facility] Address [address] [place] [address] Phone [phone] Care Team Providers Care Hosiery Operator Name Role Phone Preston Villagran MD Primary Care Provider + Reason for Visit * Reason Onset Date Comments Order Request 07/25/2024 prolia Encounter Details Date Type Department Care Team (Late st Contact Info) Description 07/25/2024 Telephone Rheumatology [facility] [address] [place] [address] Adeola Chavis CRNP [address] [place] [address] Order Request (prolia) Allergies Active Allergy Reactions Criticality Noted Date [...] as of this encounter (statuses as of 07/25/2024) Medications Medication Sig Dispensed Refills Start Date [...] osteoporosis 60 mg SC ONCE 08/02/2024 08/02/2024 Active documented as of this encounter (statuses as of 07/25/2024) Active Problems Problem Noted Date Diagnosed Date [...] nonmelanoma skin cancer 03/06/2018 Overview: BCC right oriental orthodox 08/23 Enlarged thoracic aorta 11/17/2016 Chronic migraine 10/06/2015 Lumbar degenerative disc disease 10/21/2014 GERD (gastroesophageal reflux disease) 2 Overview: 02/23-EGD-nml ,2mm gastric polyp Gastroparesis 08/21/2012 HTN, goal below 140/90 04/26/2011 Mixed hyperlipidemia 04/26/2011 documented as of this encounter (statuses as of 07/25/2024) Resolved Problems Problem Noted Date Diagnosed Date Resolved Date Protein-calorie malnutrition 06/06/2020 12/01/2020 Headache 02/11/2015 06/08/2017 Thoracic aortic aneurysm 06/04/2011 Overview: Echo needed to follow Diverticulitis of colon 07/2018 documented as of this encounter (statuses as of 07/25/2024) Immunizations Name Administration Dates Next Due COVID-19 mRNA, LNP-s, No Pre serve, 2-Dose Series ([employer]) 08/07/2021,01/14/2021,12/17/2020 COVID-19, LNP-s, No Preserve , Jose Juan-sucrose, Ages 12+ ([employer]) 02/24/2022 COVID-19, MRNA-LNP, 23-24, P F, 30 MCG/0.3 mL, 12 YRS AND ABOVE, IM ([employer]) 08/04/2023 Covid-19, Mrna, Lnp-s, Pf, B ivalent, 30 Mcg, IM, 12 yrs and above ([employer]) 10/11/2022 Pneumococcal Conjugate Vacc, 13 Valent (Prevnar) [...] encounter Miscellaneous Notes * Telephone Encounter - Adeola Chavis CRNP - 07/25/2024 4:28 PM EDT Reviewed and signed. * Telephone Encounter - Sheila Duncan LPN - 07/25/2024 3:24 PM EDT Chart reviewed and labs noted to be within normal limits. Patient has been seen within the last 12 months by a Rheumatology provider. Prolia authorization approved and updated in referral. Last injection has been > 6 months and 1 day. CAM orders pended for signature. documented in this encounter Plan of Treatment Upcoming Encounters Date Type Department Care Team (Late st Contact Info) Description 08/02/2024 10:30 AM EDT Nurse Only Rheumatology [place] [id number] [facility] [place] [address] Pf, Nurse Rheum [facility] [place] [address] 09/13/2024 10:20 AM EST Office Visit General Internal Medicine [facility] [address] [facility] [place] [address] Preston Villagran MD [address] [facility] [place] [address] 09/17/2024 10:30 AM EST Imaging Radiology [address] [place] [address] 10/08/2024 12:30 PM EST Office Visit Otolaryngology [facility] [address] [place] [address] J[address] Flannery, [address] [place] [address] Rosa Rubi Au.D. [address] [place] [address] 10/18/2024 11:00 AM EST Office Visit Cardiology, [facility] [address] [place] [address] Iraj Arevalo PAJefC [address] [place] [address] Health Maintenance Due Date Last Done Comments Adult Wellness Visit 05/25/2024 05/25/2023 Depression Screening 05/25/2024 05/25/2023 DXA Scan 06/09/2024 06/09/2022, 01/2022, 05/21/2020, Additional history exists COVID-19 Vaccine ( season) 2024 08/04/2023, 10/11/2022, 02/24/2022, Additional history exists CKD PHOS USE SMARTSET 30078 08/11/2024 10/0 03/2023, 07/29/2022, 06/30/2021 HbA1c 08/11/2024 08/11/2023, 01/05, 07/29/2022, Additional history exists Albumin/Creatinine Ratio 02/15/2025 024, 01/21/2023, 01/06/2022 CKD HGB USE SMARTSET 30460 06/21/202506/21, 06/21/2024, 03/07/2024, Additional history exists DTap/Tdap Vaccines (3 - Td or Tdap) 08/23/2033 08/23/2023, 08/21/2012 Pneumococcal Vaccine: 65+ Years Completed 11/17/2016, 11/21/2001 Zoster Vaccines Completed 03/21/2020, 01/2020, 12/08/2008 Influenza Vaccine (FLU shot) Completed 02/2024, 07/04/2023, 07/04/2023, Additional history exists VITAMIN D LEVEL ONCE IN A LIFETIME-USE SMARTSET# [id number] Completed 07/11/2024, 02/14/2024, 08/11/2023, Additional history exists [...] this encounter Medical Devices Implanted Type Area Financial Services Manager Device Identifier Shelf Expiration Date Model / Serial / Lot Lens Intraoc 21.0 - [id number] - [id number] Implanted:Qty: 1 on 02/08/2017 by Markell Montana MD at OR [facility] [address] Right: Eye [employer] 07/07/2021 [id number] / [id number] / Lens Intraoc 22.0 - [id number] - [id number] Implanted:Qty: 1 on 02/22/2017 by Markell Montana MD at OR [facility] [address] Left: Eye [employer] 08/06/2021 [id number] / [id number] / [id number] documented as of this encounter Visit Diagnoses Diagnosis Senile osteoporosis- Primary documented in this encounter Advance Directives * [...] and were consensually agreed upon. Care Teams Hosiery Operator Relationship Specialty Start Date End Date Preston Villagran MD [address] [place] [address] PCP - General Internal Medicine 01/05/22 documented as of this encounter
--- OUTSIDE RECORDS SUMMARY | 2024-10-15 04:29 | External Medical Summary ---
Author Name Unknown Address Unknown Organization [id number]:LABORATORY [facility] - [address] [place] [address] Laboratory Report Ordering Provider Test Date Status VONNIE HAYES 07/11/2024 12:21:12 Final Deficient: <20 ng/mL
Ins ufficient: 20-29 ng/mL
Recommended/Optimum:30-50 ng/mL

Vitamin D intoxication is rare. If suspicious of Vitamin D toxicity, evaluation of serum Calcium and PTH is recommended. Observation Date Value Abnormality Reference (Units ) Status 25-OH Vitamin D total 07/11/2024 12:21:12 47 >19 (ng/mL) Final Performing Location LABORATORY C - [address] [place] [address]
--- OUTSIDE RECORDS SUMMARY | 2024-10-15 04:29 | External Medical Summary ---
Author Name Unknown Address Unknown Organization K09:LABORATORY [id number] - [address] [place] [address] Laboratory Report Ordering Provider Test Date Status VONNIE HAYES 07/11/2024 12:21:12 Final Observation Date Value Abnormality Reference (Units ) Status Color of Urine by Auto 07/11/2024 12:21:12 Yellow Light Yellow, Yellow, Dark Yellow Final Clarity, Urine 07/11/2024 12:21:12 Clear Clear Final Glucose [Mass/volume] in Urine by Automated test strip 07/11/2024 12:21:12 Negative Negative (mg/dL) Final Bilirubin.total [Presence] in Urine by Automated test strip 07/11/2024 12:21:12 Negative Negative Final Ketones [Mass/volume] in Urine by Automated test strip 07/11/2024 12:21:12 Negative Negative (mg/dL) Final Specific gravity, Urine 07/11/2024 12:21:12 1.025 1.003-1.030 Final Hemoglobin [Presence] in Urine by Automated test strip 07/11/2024 12:21:12 Negative Negative Final pH, Urine 07/11/2024 12:21:12 6.0 5.0-7.5 (Units) Final Protein [Mass/volume] in Urine by Automated test strip 07/11/2024 12:21:12 Negative Negative (mg/dL) Final Urobilinogen [Mass/volume] in Urine by Automated test strip 07/11/2024 12:21:12 0.2 0.2, 1.0 (mg/dL) Final Nitrite [Presence] in Urine by Automated test strip 07/11/2024 12:21:12 Negative Negative Final Leukocyte esterase [Presence] in Urine by Automated test strip 07/11/2024 12:21:12 Trace Abnormal Negative Final RBC, Urine 07/11/2024 12:21:12 0-2 0-2 (/HPF) Final WBC, Urine 07/11/2024 12:21:12 3-5 Abnormal 0-2 (/HPF) Final Bacteria [#/area] in Urine sediment by Microscopy high power field 07/11/2024 12:21:12 0-25 0-25 (/HPF) Final Performing Location LABORATORY [facility] [address] [place] [address]
--- OUTSIDE RECORDS SUMMARY | 2024-10-15 04:29 | External Medical Summary | Summary of Care ---
Author Name Unknown Organization [facility] Address [address] [place] [address] Phone [phone] Care Team Providers Care Ground Water Technician Name Role Phone Preston Villagran MD Primary Care Provider + Encounter Details Date Type Department Care Team (Late st Contact Info) Description 07/27/2024 Result Scan Unspecified Department Kimberlee Fernandez, DO [address] [place] [address] <No scans attached> Allergies Active Allergy Reactions Criticality Noted Date [...] as of this encounter (statuses as of 07/27/2024) Medications Medication Sig Dispensed Refills Start Date [...] as of this encounter (statuses as of 07/27/2024) Active Problems Problem Noted Date Diagnosed Date [...] nonmelanoma skin cancer 03/06/2018 Overview: BCC right tenriism 08/23 Enlarged thoracic aorta 11/17/2016 Chronic migraine 10/06/2015 Lumbar degenerative disc disease 10/21/2014 GERD (gastroesophageal reflux disease) 2 Overview: 02/23-EGD-nml ,2mm gastric polyp Gastroparesis 08/21/2012 HTN, goal below 140/90 04/26/2011 Mixed hyperlipidemia 04/26/2011 documented as of this encounter (statuses as of 07/27/2024) Resolved Problems Problem Noted Date Diagnosed Date Resolved Date Protein-calorie malnutrition 06/06/2020 12/01/2020 Headache 02/11/2015 06/08/2017 Thoracic aortic aneurysm 06/04/2011 Overview: Echo needed to follow Diverticulitis of colon 07/2018 documented as of this encounter (statuses as of 07/27/2024) Immunizations Name Administration Dates Next Due COVID-19 mRNA, LNP-s, No Pre serve, 2-Dose Series (Checkout10) 08/07/2021,01/14/2021,12/17/2020 COVID-19, LNP-s, No Preserve , Jose Juan-sucrose, Ages 12+ (Pfizer) 02/24/2022 COVID-19, MRNA-LNP, 23-24, P F, 30 MCG/0.3 mL, 12 YRS AND ABOVE, IM ([employer]) 08/04/2023 Covid-19, Mrna, Lnp-s, Pf, B ivalent, 30 Mcg, IM, 12 yrs and above (Checkout10) 10/11/2022 Pneumococcal Conjugate Vacc, 13 Valent (Prevnar) [...] on file documented as of this encounter Plan of Treatment Upcoming Encounters Date Type Department Care Team (Late st Contact Info) Description 08/02/2024 10:30 AM EDT Nurse Only Rheumatology [place] [id number] [facility] [place] [address] Pf, Nurse Rheum [facility]0 Rahat Pierce [place] [address] 09/13/2024 10:20 AM EST Office Visit General Internal Medicine [facility] [address] [facility] [place] [address] Preston Villagran MD [address] [facility] [place] [address] 09/17/2024 10:30 AM EST Imaging Radiology [facility] 2nd [facility] [address] [place] [address] 10/08/2024 12:30 PM EST Office Visit Otolaryngology [facility] [address] [place] [address] Jt Flannery, [address] [facility] [place] [address] Rosa Rubi Au.D. [address] [place] [address] 10/18/2024 11:00 AM EST Office Visit Cardiology, [facility] [address] [place] [address] Iraj Arevalo PA-C [address] [place] [address] Health Maintenance Due Date Last Done Comments Adult Wellness Visit 05/25/2024 05/25/2023 Depression Screening 05/25/2024 05/25/2023 DXA Scan 06/09/2024 06/09/2022, 01/2022, 05/21/2020, Additional history exists COVID-19 Vaccine ( season) 2024 08/04/2023, 10/11/2022, 02/24/2022, Additional history exists CKD PHOS USE SMARTSET 69609 08/11/20240 03/2023, 07/29/2022, 06/30/2021 HbA1c 08/11/2024 08/11/2023, 01/05, 07/29/2022, Additional history exists Albumin/Creatinine Ratio 02/15/2025 024, 01/21/2023, 01/06/2022 CKD HGB USE SMARTSET 96603 06/21/202506/21, 06/21/2024, 03/07/2024, Additional history exists DTap/Tdap Vaccines (3 - Td or Tdap) 08/23/2033 08/23/2023, 08/21/2012 Pneumococcal Vaccine: 65+ Years Completed 11/17/2016, 11/21/2001 Zoster Vaccines Completed 03/21/2020, 01/2020, 12/08/2008 Influenza Vaccine (FLU shot) Completed 02/2024, 07/04/2023, 07/04/2023, Additional history exists VITAMIN D LEVEL ONCE IN A LIFETIME-USE SMARTSET# [id number] Completed 07/11/2024, 02/14/2024, 08/11/2023, Additional history exists [...] this encounter Medical Devices Implanted Type [facility] Clinic Assistant Device Identifier Shelf Expiration Date Model / Serial / Lot Lens Intraoc 21.0 - [id number] - [id number] Implanted:Qty: 1 on 02/08/2017 by Markell Montana MD at OR [facility] Right: Eye [employer] 07/07/2021 [id number] / [id number] / Lens Intraoc 22.0 - [id number] - [id number] Implanted:Qty: 1 on 02/22/2017 by Markell Montana MD at OR [facility] Left: Eye [employer]OM[employer] 08/06/2021 [id number] / [id number] / [id number] documented as of this encounter Procedures Procedure Name Priority Date/Time Associated Diagnosis Comments CARDIOLOGY SCANNED RESULT 07/27/2024 documented in this encounter Results * CARDIOLOGY SCANNED RESULT (07/27/2024) 07/27/2024 Kimberlee Fernandez DO OTHER documented in this encounter Advance Directives * [...] and were consensually agreed upon. Care Teams Ground Water Technician Relationship Specialty Start Date End Date Preston Villagran MD [address] [facility] [place] [address] PCP - General Internal Medicine 01/05/22 documented as of this encounter
--- OUTSIDE RECORDS SUMMARY | 2024-10-15 04:29 | External Medical Summary | Summary of Care ---
Author Name Unknown Organization [facility] Address [address] [place] [address] Phone [phone] Care Team Providers Care Volunteer Services Manager Name Role Phone Preston Villagran MD Primary Care Provider + Reason for Visit * Reason Onset Date Comments FYI 05/17/2024 Encounter Details Date Type Department Care Team (Late st Contact Info) Description 05/17/2024 Telephone General Internal Medicine [facility] [address] [place] [address] Preston Villagran MD [address] [place] [address] FYI Allergies Active Allergy Reactions Criticality Noted Date [...] as of this encounter (statuses as of 08/16/2024) Medications Medication Sig Dispensed Refills Start Date End Date Status VITAMIN D 1000 UNITS PO CAPSIndications:Vit madison D deficiency 2 capsules daily 60 Cap 11 08/30/2012 Active denosumab (PROLIA) 60 MG/ML injection Twice yearly 1 Syringe 04/27/2018 Active Acetaminophen 325 MG Oral Tablet Take 2 Tablets by mouth every 6 hours as needed for Pain, Moderate. Active Clindamycin HCl 150 MG Oral Capsule (Cleocin) 01/25/2022 Active Dicyclomine HCl 10 MG Oral CapsuleIndications: Abdominal cramping Take 1 Capsule by mouth 4 times a day as needed for Cramping. for abdominal pain 120 Capsule 11 11/08/2023 Active Apixaban 2.5 MG Oral Tablet (Eliquis)Indication s:HTN, goal below 140/90,A-fib (HCC) TAKE 1 TABLET BY MOUTH TWICE DAILY 180 Tablet 3 02/15/2024 Active Metoprolol Succinate ER 100 MG Oral Tablet Extended Release 24 Hour (Toprol XL) Take 1 Tablet by mouth in the morning. 90 Tablet 3 04/16/2024 Active documented as of this encounter (statuses as of 08/16/2024) Active Problems Problem Noted Date Diagnosed Date [...] nonmelanoma skin cancer 03/06/2018 Overview: BCC right yazdanism 08/23 Enlarged thoracic aorta 11/17/2016 Chronic migraine 10/06/2015 Lumbar degenerative disc disease 10/21/2014 GERD (gastroesophageal reflux disease) 2 Overview: 02/23-EGD-nml ,2mm gastric polyp Gastroparesis 08/21/2012 HTN, goal below 140/90 04/26/2011 Mixed hyperlipidemia 04/26/2011 documented as of this encounter (statuses as of 08/16/2024) Resolved Problems Problem Noted Date Diagnosed Date Resolved Date Protein-calorie malnutrition 06/06/2020 12/01/2020 Headache 02/11/2015 06/08/2017 Thoracic aortic aneurysm 06/04/2011 Overview: Echo needed to follow Diverticulitis of colon 07/2018 documented as of this encounter (statuses as of 08/16/2024) Immunizations Name Administration Dates Next Due COVID-19 mRNA, LNP-s, No Pre serve, 2-Dose Series (Tongda) 08/07/2021,01/14/2021,12/17/2020 COVID-19, LNP-s, No Preserve , Jose Juan-sucrose, Ages 12+ (Pfizer) 02/24/2022 COVID-19, MRNA-LNP, 23-24, P F, 30 MCG/0.3 mL, 12 YRS AND ABOVE, IM ([employer]) 08/04/2023 Covid-19, Mrna, Lnp-s, Pf, B ivalent, 30 Mcg, IM, 12 yrs and above (Pfizer) 10/11/2022 Pneumococcal Conjugate Vacc, 13 Valent (Prevnar) 11/17/2016 Pneumococcal Polysaccharide PPV23 (Pneumovax) 11/21/2001 Season Influenza, Quad, PF, Adjuvanted, 65+ Yrs, IM (FLUAD) 07/31/2021,08/11/2020 Seasonal Influenza Vac., MDV , IM, 0.5 mL (Fluzone) 09/03/2014,08/21/2013,08/03/2012,07/09 Seasonal Influenza Virus Vac cine, Unspecified Formulation 07/18/2019,08/07/2018,08/09/2017,07/09,09/03/2014,08/21/2013,08/03/20 12,07/27/2011 Seasonal Influenza, PF, 6 M & above, [...] No 05/25/2023 Does the household have a [facility] source of income? (Household - for ages [...] encounter Miscellaneous Notes * Telephone Encounter - Preston Villagran MD - 05/17/2024 4:00 PM EDT noted * Telephone Encounter - Lindsay Scott OSA - 05/17/2024 1:43 PM EDT Patient calling in to notify Dr. Villagran she is having her hip injected on 05/25/24 needs to stopEliquis. She was advised to stop it 1 week prior to the injection which will be 05/18/24. She also wanted him to know the Injection is being done in radiology at [facility] near [facility]. documented in this encounter Plan of Treatment Upcoming Encounters Date Type Department Care Team (Late st Contact Info) Description 09/13/2024 10:20 AM EST Office Visit General Internal Medicine [facility] [address] [place] [phone] Preston Villagran MD 200 [facility] [place] [address] 09/17/2024 10:30 AM EST Imaging Radiology [facility] 2nd [facility] [address] [place] [address] 10/08/2024 12:30 PM EST Office Visit Otolaryngology [facility] [address] [place] [address] Jt Flannery DO [address] [place] [address] Rosa Rubi Au.D. [address] [place] [address] 10/18/2024 11:00 AM EST Office Visit Cardiology, [facility] [address] [place] [address] Iraj Arevalo PA-C [address] [place] [address] 02/05/2025 10:00 AM EDT Office Visit Rheumatology [address] [place] [address] Adeola Chavis CRNP [address] [facility] [place] [address] Health Maintenance Due Date Last Done Comments Adult Wellness Visit 05/25/2024 05/25/2023 Depression Screening 05/25/2024 05/25/2023 DXA Scan 06/09/2024 06/09/2022, 01/2022, 05/21/2020, Additional history exists COVID-19 Vaccine ( season) 2024 08/04/2023, 10/11/2022, 02/24/2022, Additional history exists CKD PHOS USE SMARTSET 74159 08/11/20240 03/2023, 07/29/2022, 06/30/2021 HbA1c 08/11/2024 08/11/2023, 01/05, 07/29/2022, Additional history exists Albumin/Creatinine Ratio 02/15/2025 024, 01/21/2023, 01/06/2022 CKD HGB USE SMARTSET 70550 06/21/202506/21, 06/21/2024, 03/07/2024, Additional history exists DTap/Tdap Vaccines (3 - Td or Tdap) 08/23/2033 08/23/2023, 08/21/2012 Pneumococcal Vaccine: 65+ Years Completed 11/17/2016, 11/21/2001 Zoster Vaccines Completed 03/21/2020, 01/2020, 12/08/2008 Influenza Vaccine (FLU shot) Completed 02/2024, 07/04/2023, 07/04/2023, Additional history exists VITAMIN D LEVEL ONCE IN A LIFETIME-USE SMARTSET# [id number] Completed 07/11/2024, 02/14/2024, 08/11/2023, Additional history exists [...] this encounter Medical Devices Implanted Type Area Certified Indoor Environmentalist Device Identifier Shelf Expiration Date Model / Serial / Lot Lens Intraoc 21.0 - [id number] - [id number] Implanted:Qty: 1 on 02/08/2017 by Markell Montana MD at OR [facility] Right: Eye [employer] 07/07/2021 [id number] / [id number] / Lens Intraoc 22.0 - [id number] - [id number] Implanted:Qty: 1 on 02/22/2017 by Markell Montana MD at OR [facility] Left: Eye [employer] 08/06/2021 [id number] / [id number] / [id number] documented as of this encounter Advance Directives [...] and were consensually agreed upon. Care Teams Volunteer Services Manager Relationship Specialty Start Date End Date Preston Villagran MD [address] [facility] [place] [address] PCP - General Internal Medicine 01/05/22 documented as of this encounter
--- OUTSIDE RECORDS SUMMARY | 2024-10-15 04:29 | External Medical Summary | Summary of Care ---
Author Name Unknown Organization [facility] Address [address] [place] [address] Phone [phone] Care Team Providers Care [employer] Assistant Principal Name Role Phone Preston Villagran MD Primary Care Provider + Reason for Visit * Reason Onset Date Comments Acute Restless legs at night, upper abdominal pain-worse today than usual, feeling more tired Medication Administration 07/11/2024 Flu an d/or Pneumo Inj Encounter Details Date Type Department Care Team (Late st Contact Info) Description 07/11/2024 11:40 AM EDT Office Visit General Internal Medicine [facility] [address] [place] [address] Karol Vazquez MD [address] [place] [address] RLS (restless legs syndrome)*; Fatigue, unspecified type; S/P placement of cardiac pacemaker; Nocturia; Imbalance; Tachy-michael syndrome (HCC); Prediabetes; Paroxysmal atrial fibrillation (HCC); HTN, goal below 140/90; Need for prophylactic vaccination and inoculation against influenza; Mixed hyperlipidemia; Gastroesophageal reflux disease without esophagitis; Chronic kidney disease, stage 3a; History of nonmelanoma skin cancer; Senile osteoporosis Allergies Active Allergy Reactions Criticality Noted Date [...] as of this encounter (statuses as of 07/11/2024) Medications Medication Sig Dispensed Refills Start Date [...] 150 MG Oral Capsule (Cleocin) 01/25/2022 Active Terazosin HCl 1 MG Oral Capsule (Hytrin)Indications: HTN, goal below 140/90,Paroxysmal atrial fibrillation (HCC) TAKE 1 CAPSULE BY MOUTH AT BEDTIME 90 Capsule 3 10/04/2023 Active SUMAtriptan Succinate 100 MG Oral TabletIndications:Mi graine without aura and without status migrainosus, not intractable TAKE 1 TABLET BY MOUTH DAILY NEEDED FOR MIGRAINE(S) 36 Tablet 1 10/10/2023 Active Rosuvastatin Calcium 5 MG Oral Tablet (Crestor)Indications :Dyslipidemia, goal LDL below 130 Take 1 Tablet by mouth in the morning. 90 Tablet 3 10/11/2023 Active Dicyclomine HCl 10 MG Oral CapsuleIndications:A [...] 3 tab 90 Capsule 5 07/11/2024 Active documented as of this encounter (statuses as of 07/11/2024) Active Problems Problem Noted Date Diagnosed Date [...] nonmelanoma skin cancer 03/06/2018 Overview: BCC right bahai 08/23 Enlarged thoracic aorta 11/17/2016 Chronic migraine 10/06/2015 Lumbar degenerative disc disease 10/21/2014 GERD (gastroesophageal reflux disease) 2 Overview: 4/19-EGD-nml ,2mm gastric polyp Gastroparesis 08/21/2012 HTN, goal below 140/90 04/26/2011 Mixed hyperlipidemia 04/26/2011 documented as of this encounter (statuses as of 07/11/2024) Resolved Problems Problem Noted Date Diagnosed Date Resolved Date Protein-calorie malnutrition 06/06/2020 12/01/2020 Headache 02/11/2015 06/08/2017 Thoracic aortic aneurysm 06/04/2011 Overview: Echo needed to follow Diverticulitis of colon 07/2018 documented as of this encounter (statuses as of 07/11/2024) Immunizations Name Administration Dates Next Due COVID-19 mRNA, LNP-s, No Pre serve, 2-Dose Series (Nonpareil) 08/07/2021,01/14/2021,12/17/2020 COVID-19, LNP-s, No Preserve , Jose Juan-sucrose, Ages 12+ (Nonpareil) 02/24/2022 COVID-19, MRNA-LNP, 23-24, P F, 30 MCG/0.3 mL, 12 YRS AND ABOVE, IM ([facility]) 08/04/2023 Covid-19, Mrna, Lnp-s, Pf, B ivalent, 30 Mcg, IM, 12 yrs and above (Nonpareil) 10/11/2022 Pneumococcal Conjugate Vacc, 13 Valent (Prevnar) [...] Sign Reading Time Taken Comments Blood Pressure 120/80 07/11/2024 11:31 AM EDT Pulse 54 07/11/2024 11:31 AM EDT Temperature 35.9 C (96.6 F) 07/11/2024 11:31 AM E DT Respiratory Rate 16 07/11/2024 11:31 AM EDT Oxygen Saturation - - Inhaled Oxygen Concentration - - Weight 51.8 kg (114 lb 4.8 oz) 07/11/2024 11:31 AM EDT Height 152.4 cm (5') 07/11/2024 11:31 AM EDT Body Mass Index 22.32 07/11/2024 11:31 AM EDT documented in this encounter Progress Notes * Karol Vazquez MD - 07/11/2024 11:40 AM EDT Images from the original note were not included. History of Present Illness Alison Xiong is a 89 year old female that presents for Acute (Restless legs at night, upper abdominal pain-worse today than usual, feeling more tired ) and Medication Administration (Flu and/orPneumo Inj) 89 year old YOfemale with PMH as listed below presents here for evaluation of restless leg and fatigue. Duration of illness: few years Symptoms present : -Restless legs at night for about few years but-worse today than usual. Symptoms usually happens atnight where she feels ache in her leg and some where feeling and feels like needs to get up and once she gets up feels better. Was on gabapentin for that which she is not sure if it was helping but also was on low dose 100 mg twice a day. She does not have symptoms during the day but only at night -feeling more tired than usual for last 2 months. No tick bite but does have lot of trees and was in her backyard. No fever chills, hot flashes -does have urinary symptoms little bit more frequency more so [id number] times at night which is little bit more than usual. Not able to sleep as much to do need to get up to go to the bathroom Symptoms not present: Swelling of legs, numbness or tingling in legs, fever chills, burning urination or urgency to go to bathroom, change in BM, joint pain or swelling Have same similar thing in past : Has restless leg syndrome for awhile but it is a bit worse now Since symptoms started things getting : Worse Used anything for this illness: Had blood work done and was seen by PAC, basic blood work was unremarkable Other concerns or issues present : Wants to get flu shot Physical Exam Vitals: 07/11/24 1131 Temp: 35.9 C (96.6 F) Pulse: 54 Resp: 16 BP: 120/80 BMI: 22.32 Physical Exam Vitals and nursing note reviewed. Constitutional: General: She is not in acute distress. Appearance: She is normal weight. HENT: Head: Normocephalic. Cardiovascular: Rate and Rhythm: Normal rate and regular rhythm. Pulmonary: Effort: Pulmonary effort is normal. No respiratory distress. Breath sounds: No wheezing. Abdominal: General: Bowel sounds are normal. There is no distension. Palpations: Abdomen is soft. There is no mass. Musculoskeletal: General: No swelling, tenderness or signs of injury. Cervical back: Neck supple. No rigidity. Skin: General: Skin is warm. Findings: No lesion or rash. Neurological: Mental Status: She is alert. Psychiatric: Mood and Affect: Mood normal. I have reviewed the following results: CMP, TSH, and CBC Assessment and Plan RLS (restless legs syndrome) - IRON SCREEN, INCLUDING TIBC; Future - MAGNESIUM; Future - Gabapentin 100 MG Oral Capsule (Neurontin); Take 1 Capsule by mouth at bedtime. In 3 days increase to 2 tab and in 3 days increase to 3 tab- we will use higher dose at night for restless leg syndrome and not during the day to avoid fatigue was sleepiness Fatigue, unspecified type Could be lack of sleep with age - LYME DISEASE ANTIBODY SCREEN WITH REFLEX TO CONFIRMATION; Future S/P placement of cardiac pacemaker Nocturia - URINALYSIS WITH MICROSCOPIC EXAM; Future - CULTURE, URINE, QUANTITATIVE; Future Imbalance - VITAMIN B12; Future - FOLIC ACID; Future Tachy-michael syndrome (HCC) Prediabetes Paroxysmal atrial fibrillation (HCC) HTN, goal below 140/90 Need for prophylactic vaccination and inoculation against influenza - INFLUENZA VAC., TRIVALENT, HD, PF, 65 AND ABOVE, 0.5 ML IM (FLUZONE HD) Mixed hyperlipidemia Gastroesophageal reflux disease without esophagitis Chronic kidney disease, stage 3a History of nonmelanoma skin cancer Senile osteoporosis - 25-HYDROXY VITAMIN D; Future Wrap-Up Time: I spent a total of 40-54 minutes (exact time 44 mins) on the date of service in preparation, delivery, and documentation of the care provided to Alison Xiong excluding any time spent in the performance of separately billed services. * Natalia Parnell LPN - 07/11/2024 11:33 AM EDT PRE - ADMINISTRATION DOCUMENTATION Are you experiencing any cold symptoms or fever? No Have you had Guillain-[place] Syndrome (an illness that causes paralysis) within the last 6 weeks? No Have you had the flu shot in the past? YES Have you ever had a reaction to the flu shot? No Natalia Parnell LPN, 07/11/2024 11:33 AM Immunization Administration Documentation Time Out Procedure Performed: Yes Patient Identified (Ask Name/Date of ): Yes Does the patient have a fever greater than 101 degrees today? No Patient allergic to latex? No VFC Stock: No Immunization(s) verified: Yes, Immunization Name: Flu, VIS Sheet(s) given: Yes Verified Side and Site: Yes Verified Shot(s) with Parent(s)/Patient: Yes documented in this encounter Nursing Notes * Natalia Parnell LPN - 07/11/2024 11:31 AM EDT The patient has been properly identified by confirmation of name and date of . Chief Complaint Patient presents with Acute Restless legs at night, upper abdominal pain-worse today than usual, feeling more tired documented in this encounter Plan of Treatment Upcoming Encounters Date Type Department Care Team (Late st Contact Info) Description 08/02/2024 10:30 AM EDT Nurse Only Rheumatology [place] [id number] [place] [id number] Pf, Nurse Rheum [facility] [place] [address] [place] [address] 09/13/2024 10:20 AM EST Office Visit General Internal Medicine [facility] [address] [facility] [place] [address] Preston Villagran MD 200 [facility] [place] [address] 09/17/2024 10:30 AM EST Imaging Radiology [facility] 2nd [facility] [place] [address] 10/18/2024 11:00 AM EST Office Visit Cardiology, [facility] [address] [facility] [place] [address] Iraj Arevalo PA-C 132 [facility] [place] [address] Pending Results Name Type Priority Associated Diagnoses Date /Time VITAMIN B12 Lab Routine Imbalance 07/11/2024 12:21 PM EDT FOLIC ACID Lab Routine Imbalance 07/11/2024 12:21 PM EDT IRON SCREEN, INCLUDING TIBC Lab Routine RLS (restless legs syndrome) 07/11/2024 12:21 PM EDT 25-HYDROXY VITAMIN D Lab Routine Senile osteoporosis 07/11/2024 12:21 PM EDT LYME DISEASE ANTIBODY SCREEN WITH REFLEX TO CONFIRMATION Lab Routine Fatigue, unspecified type 07/11/2024 12:21 PM EDT CULTURE, URINE, QUANTITATIVE Lab Routine Nocturia 07/11/2024 12:21 PM EDT Scheduled Orders Name Type Priority Associated Diagnoses Orde r Schedule VITAMIN B12 Lab Routine Imbalance Expected: 07/11/2024 (Approximate), Expires: 07/11/2025 FOLIC ACID Lab Routine Imbalance Expected: 07/11/2024 (Approximate), Expires: 07/11/2025 IRON SCREEN, INCLUDING TIBC Lab Routine RLS (restless legs syndrome) Expected: 07/11/2024 (Approximate), Expires: 07/11/2025 25-HYDROXY VITAMIN D Lab Routine Senile osteoporosis Expected: 07/11/2024 (Approximate), Expires: 07/11/2025 LYME DISEASE ANTIBODY SCREEN WITH REFLEX TO CONFIRMATION Lab Routine Fatigue, unspecified type Expected: 07/11/2024 (Approximate), Expires: 07/11/2025 CULTURE, URINE, QUANTITATIVE Lab Routine Nocturia Expected: 07/11/2024, Expires: 07/11/2025 Health Maintenance Due Date Last Done Comments Adult Wellness Visit 05/25/2024 05/25/2023 Depression Screening 05/25/2024 05/25/2023 DXA Scan 06/09/2024 06/09/2022, 01/2022, 05/21/2020, Additional history exists COVID-19 Vaccine ( season) 2024 08/04/2023, 10/11/2022, 02/24/2022, Additional history exists CKD PHOS USE SMARTSET 41740 08/11/2024 10/0 03/2023, 07/29/2022, 06/30/2021 HbA1c 08/11/2024 08/11/2023, 01/05, 07/29/2022, Additional history exists Albumin/Creatinine Ratio 02/15/2025 024, 01/21/2023, 01/06/2022 CKD HGB USE SMARTSET 16419 06/21/202506/21, 06/21/2024, 03/07/2024, Additional history exists DTap/Tdap Vaccines (3 - Td or Tdap) 08/23/2033 08/23/2023, 08/21/2012 Pneumococcal Vaccine: 65+ Years Completed 11/17/2016, 11/21/2001 Zoster Vaccines Completed 03/21/2020, 01/2020, 12/08/2008 VITAMIN D LEVEL ONCE IN A LIFETIME-USE SMARTSET# 24711 Completed 02/14/2024, 08/11/2023, 02/15/2022, Additional history exists Influenza Vaccine (FLU shot) Completed 02/2024, 07/04/2023, 07/04/2023, Additional history exists HPV (Gardasil) Vaccine Aged Out No lo nger eligible based on patient's age to complete this topic Hepatitis B Vaccine Aged Out No longe r eligible based on patient's age to complete this topic MENINGOCOCCAL (MENACTRA/MENVEO) Aged Out No longer eligible based on patient's age to complete this topic documented as of this encounter Medical Devices Implanted Type Area Teachers Aide Device Identifier Shelf Expiration Date Model / Serial / Lot Lens Intraoc 21.0 - [id number] - [id number] Implanted:Qty: 1 on 02/08/2017 by Markell Montana MD at OR [facility] Right: Eye [employer] 07/07/2021 [id number] / [id number] / Lens Intraoc 22.0 - [id number] - [id number] Implanted:Qty: 1 on 02/22/2017 by Markell Montana MD at OR [facility] Left: Eye [employer]OMB 08/06/2021 [id number] / [id number] / [id number] documented as of this encounter Results * (ABNORMAL) URINALYSIS WITH MICROSCOPIC EXAM (07/11/2024 12:21 PM EDT) Color, Urine Yellow Light Yellow, Yellow, Dark Yellow 07/11/2024 12:42 PM EDT [place] [address] Clarity, Urine Clear Clear 07/11/2024 12:42 PM EDT [place] [address] Glucose, Urine Negative Negative mg/dL 07/11/2024 12:42 PM EDT [place] [address] Bilirubin, Urine Negative Negative 07/11/2024 12:42 PM EDT [place] [address] Ketone, Urine Negative Negative mg/dL 07/11/2024 12:42 PM EDT [place] [address] Specific [place], Urine 1.025 1.003 - 1.030 07/11/2024 12:42 PM EDT [place] [address] Blood, Urine Negative Negative 07/11/2024 12:42 PM EDT [place] [address] pH, Urine 6.0 5.0 - 7.5 Units 07/11/2024 12:42 PM EDT [place] [address] Protein, Urine Negative Negative mg/dL 07/11/2024 12:42 PM EDT [place] [address] Urobilinogen, Urine 0.2 0.2, 1.0 mg/dL 07/11/2024 12:42 PM EDT [place] [address] Nitrite, Urine Negative Negative 07/11/2024 12:42 PM EDT [place] [address] Esterase, Urine Trace(A) Negative 07/11/2024 12:42 PM EDT [place] [address] RBC, Urine 0-2 0 - 2 /HPF 07/11/2024 12:42 PM EDT [place] [address] WBC, Urine 3-5(A) 0 - 2 /HPF 07/11/2024 12:42 PM EDT [place] [address] Bacteria, Urine 0-25 0 - 25 /HPF 07/11/2024 12:42 PM EDT [place] [address] Urine Urine specimen obtained by clean catch procedure / Unknown Non-blood Collection / Unknown 07/11/2024 12:21 PM EDT 07/11/2024 12:21 PM EDT Karol Vazquez MD LAB URINE ORDERABLES [facility] [address] [place] [address] * MAGNESIUM (07/11/2024 12:21 PM EDT) Magnesium 2.2 1.5 - 2.6 mg/dL 07/11/2024 1:08 PM EDT [facility] [address] Blood Venous blood specimen / Unknown Venipuncture / Unknown 07/11/2024 12:21 PM EDT 07/11/2024 12:21 PM EDT Karol Vazquez MD LAB BLOOD ORDERABLES Performing Organization Address [facility] Phone Number [facility] [id number] [place] [address] documented in this encounter Visit Diagnoses Diagnosis RLS (restless legs syndrome)- Primary Restless legs syndrome (RLS) Fatigue, unspecified type S/P placement of cardiac pacemaker Cardiac pacemaker in situ Nocturia Imbalance Abnormality of gait Tachy-michael syndrome (HCC) Sinoatrial node dysfunction Prediabetes Other abnormal glucose Paroxysmal atrial fibrillation (HCC) Atrial fibrillation HTN, goal below 140/90 Unspecified essential hypertension Need for prophylactic vaccination and inoculation against influenza Mixed hyperlipidemia Gastroesophageal reflux disease without esophagitis Esophageal reflux Chronic kidney disease, stage 3a History of nonmelanoma skin cancer Personal history of other malignant neoplasm of skin Senile osteoporosis documented in this encounter Advance Directives * [...] and were consensually agreed upon. Care Teams High School Assistant Principal Relationship Specialty Start Date End Date Preston Villagran MD [address] [place] [address] PCP - General Internal Medicine 01/05/22 documented as of this encounter
--- OUTSIDE RECORDS SUMMARY | 2024-10-15 04:29 | External Medical Summary | Summary of Care ---
Author Name Unknown Organization [facility] Address [address] [place] [address] Phone [phone] Care Team Providers Care Manager Speech Name Role Phone Preston Villagran MD Primary Care Provider + Reason for Visit * Reason Comments Outpatient Testing Encounter Details Date Type Department Care Team (Late st Contact Info) Description 07/11/2024 12:10 PM EDT Laboratory Laboratory Scenery [facility] [address] [place] [phone] [place], Lab Scenery [address] [place] [address] Imbalance; RLS (restless legs syndrome); Senile osteoporosis; Fatigue, unspecified type; Nocturia Allergies Active Allergy Reactions Criticality Noted Date [...] nonmelanoma skin cancer 03/06/2018 Overview: BCC right taoist 08/23 Enlarged thoracic aorta 11/17/2016 Chronic migraine [...] mRNA, LNP-s, No Pre serve, 2-Dose Series ([employer]) 08/07/2021,01/14/2021,12/17/2020 COVID-19, LNP-s, No Preserve , Jose Juan-sucrose, Ages 12+ (Pfizer) 02/24/2022 COVID-19, MRNA-LNP, 23-24, P F, 30 MCG/0.3 mL, 12 YRS AND ABOVE, IM ([facility]) 08/04/2023 Covid-19, Mrna, Lnp-s, Pf, B ivalent, 30 Mcg, IM, 12 yrs and above ([employer]olex) 10/11/2022 Pneumococcal Conjugate Vacc, 13 Valent (Prevnar) [...] 08/02/2024 10:30 AM EDT Nurse Only Rheumatology [place] [address] [facility] [place] [address] Pf, Nurse Rheum [facility] [place] [address] 09/13/2024 10:20 AM EST Office Visit General Internal Medicine [facility] [address] [facility] [place] [address] Preston Villagran MD [address] [facility] [place] [address] 09/17/2024 10:30 AM EST Imaging Radiology [facility] 2nd [facility] [address] [place] [address] 10/18/2024 11:00 AM EST Office Visit Cardiology, [facility] [address] [place] [address] Iraj Arevalo PA-C [address] [place] [address] Pending Results Name Type Priority Associated Diagnoses [...] Fatigue, unspecified type 07/11/2024 12:21 PM EDT MAGNESIUM Lab Routine RLS (restless legs syndrome) 07/11/2024 12:21 PM EDT URINALYSIS WITH MICROSCOPIC EXAM Lab Routine Nocturia 07/11/2024 12:21 PM EDT CULTURE, URINE, QUANTITATIVE Lab Routine Nocturia 07/11/2024 12:21 PM EDT LYME DISEASE ANTIBODY SCREEN Lab Routine Fatigue, unspecified type 07/11/2024 12:21 PM EDT Health Maintenance Due Date Last Done Comments Adult Wellness Visit 05/25/2024 05/25/2023 Depression Screening 05/25/2024 05/25/2023 DXA Scan 06/09/2024 06/09/2022, 01/2022, 05/21/2020, Additional history exists COVID-19 Vaccine ( season) 2024 08/04/2023, 10/11/2022, 02/24/2022, Additional history exists CKD PHOS USE SMARTSET 98316 08/11/2024 100 03/2023, 07/29/2022, 06/30/2021 HbA1c 08/11/2024 08/11/2023, 0305/2023, 07/29/2022, Additional history exists Albumin/Creatinine Ratio 02/15/2025 024, 01/21/2023, 01/06/2022 CKD HGB USE SMARTSET 07732 06/21/202506/21, 06/21/2024, 03/07/2024, Additional history exists DTap/Tdap Vaccines (3 - Td or Tdap) 08/23/2033 08/23/2023, 08/21/2012 Pneumococcal Vaccine: 65+ Years Completed 11/17/2016, 11/21/2001 Zoster Vaccines Completed 03/21/2020, 01/2020, 12/08/2008 VITAMIN D LEVEL ONCE IN A LIFETIME-USE SMARTSET# 30031 Completed 02/14/2024, 08/11/2023, 02/15/2022, Additional history exists [...] this encounter Medical Devices Implanted Type Area Hvac Project Manager Device Identifier Shelf Expiration Date Model / Serial / Lot Lens Intraoc 21.0 - [id number] - [id number] Implanted:Qty: 1 on 02/08/2017 by Markell Montana MD at OR [facility] Right: Eye [employer] 07/07/2021 [id number] / [id number] / Lens Intraoc 22.0 - [id number] - [id number] Implanted:Qty: 1 on 02/22/2017 by Markell Montana MD at OR [facility] Left: Eye [employer]OMB 08/06/2021 [id number] / [id number] / [id number] documented as of this encounter Visit Diagnoses Diagnosis Imbalance Abnormality of gait RLS (restless legs syndrome) Restless legs syndrome (RLS) Senile osteoporosis Fatigue, unspecified type Nocturia documented in this encounter Advance Directives * [...] and were consensually agreed upon. Care Teams Manager Speech Relationship Specialty Start Date End Date Preston Villagran MD [address] [place] [address] PCP - General Internal Medicine 01/05/22 documented as of this encounter
--- OUTSIDE RECORDS SUMMARY | 2024-10-15 04:29 | External Medical Summary ---
Author Name Unknown Address Unknown Organization [id number]:LABORATORY [facility] - [facility] [address] [place] [address] Laboratory Report Ordering Provider Test Date Status VONNIE HAYES 07/11/2024 12:21:12 Final Observation Date Value Abnormality Reference (Units ) Status Borrelia burgdorferi IgG and IgM [Interpretation] in Serum by Immunoassay 07/11/2024 12:21:12 Negative Negative Final Performing Location LABORATORY [facility] - [address] [place] [address]
--- OUTSIDE RECORDS SUMMARY | 2024-10-15 04:29 | External Medical Summary ---
Author Name Unknown Address Unknown Organization [id number]:LABORATORY [facility] - [address] [place] [address] Laboratory Report Ordering Provider Test Date Status VONNIE HAYES 07/11/2024 12:21:12 Final Observation Date Value Abnormality Reference (Units) Status Bacteria identified in Specimen by Culture 07/11/2024 12:21:12 No significant growth Final Test: Culture, Urine, Quanti tative
Specimen Source: Urine, Clean Catch
Specimen Type: Urine
Specimen Date: 07/11/2024 1221
Result Date: 07/12/2024 1200
Result Status: Final result
Resulting Lab: LABORATORY [facility]
[address]
[place] [address]

CULTURE

No significant growth

null Performing Location LABORATORY [facility] - [address] [place] [address]
--- OUTSIDE RECORDS SUMMARY | 2024-10-15 04:30 | External Medical Summary ---
Author Name Unknown Address Unknown Organization [id number]:LABORATORY [facility] - [address] [place] [address] Laboratory Report Ordering Provider Test Date Status BILLY BLANCHARD 06/21/2024 11:02:59 Final Observation Date Value Abnormality Reference (Units ) Status TSH 06/21/2024 11:02:59 1.68 0.27-4.20 (uIU/mL) Final Performing Location LABORATORY [facility] - [address] [place] [address]
--- OUTSIDE RECORDS SUMMARY | 2024-10-15 04:30 | External Medical Summary | Summary of Care ---
Author Name Unknown Organization [facility] Address [address] [place] [address] Phone [phone] Care Team Providers Care Bobbin Cleaning Machine Operator Name Role Phone Preston Villagran MD Primary Care Provider + Reason for Visit * Reason Onset Date Comments Information 07/02/2024 Encounter Details Date Type Department Care Team (Late st Contact Info) Description 07/02/2024 Telephone Radiology, [place] [address] [place] [address] Adeola Chavis CRNP [address] [place] [address] Information Allergies Active Allergy Reactions Criticality Noted Date [...] as of this encounter (statuses as of 07/02/2024) Medications Medication Sig Dispensed Refills Start Date [...] THE DAY 90 Capsule 1 07/02/2024 Active documented as of this encounter (statuses as of 07/02/2024) Active Problems Problem Noted Date Diagnosed Date [...] nonmelanoma skin cancer 03/06/2018 Overview: BCC right shinto 08/23 Enlarged thoracic aorta 11/17/2016 Chronic migraine 10/06/2015 Lumbar degenerative disc disease 10/21/2014 GERD (gastroesophageal reflux disease) 2 Overview: 02/23-EGD-nml ,2mm gastric polyp Gastroparesis 08/21/2012 HTN, goal below 140/90 04/26/2011 Mixed hyperlipidemia 04/26/2011 documented as of this encounter (statuses as of 07/02/2024) Resolved Problems Problem Noted Date Diagnosed Date Resolved Date Protein-calorie malnutrition 06/06/2020 12/01/2020 Headache 02/11/2015 06/08/2017 Thoracic aortic aneurysm 06/04/2011 Overview: Echo needed to follow Diverticulitis of colon /0 07/2018 documented as of this encounter (statuses as of 07/02/2024) Immunizations Name Administration Dates Next Due COVID-19 mRNA, LNP-s, No Pre serve, 2-Dose Series (PodPonics) 08/07/2021,01/14/2021,12/17/2020 COVID-19, LNP-s, No Preserve , Jose Juan-sucrose, Ages 12+ (Pfizer) 02/24/2022 COVID-19, MRNA-LNP, 23-24, P F, 30 MCG/0.3 mL, 12 YRS AND ABOVE, IM ([facility]) 08/04/2023 Covid-19, Mrna, Lnp-s, Pf, B ivalent, [...] No Preserve, IM 08/04/2016,08/22/2015 08/04/2017 Seasonal Influenza, Split, I IV3, With Preserve, Inj 09/03/2014,08/21/2013,08/03/2012,07/09 Seasonal Influenza, Trivalen t, Adjuvanted, 65+ yrs 07/18/2019 TDAP (age 10 and older)(Boostrix) 08/23/2023, [...] Telephone Encounter - Adeola Chavis CRNP - 07/02/2024 4:08 PM EDT Noted, thank you. * Telephone Encounter - Mee Caldwell RT (R) - 07/02/2024 11:50 AM EDT Patient was unable to get dexa scan today due to a pacemaker. She was given phone number for dieter feliz which she stated she would call, Nahomy was faxing over order documented in this encounter Plan of Treatment Upcoming Encounters Date Type Department Care Team (Late st Contact Info) Description 07/06/2024 11:00 AM EDT Office Visit Audiology [facility] [address] [address] Rosa Rubi Au.D. [address] [place] [address] 07/06/2024 12:30 PM EDT Office Visit Otolaryngology [facility] [address] [address] Jt Flannery DO [address] [place] [address] 08/02/2024 10:30 AM EDT Nurse Only Rheumatology [place] [address] [facility] [place] [address] Pf, Nurse Rheum [address] [facility], [place] [address] 09/13/2024 10:20 AM EST Office Visit General Internal Medicine [facility] 200 [facility] [place] [address] Preston Villagran MD [address] [place] [address] 09/17/2024 10:30 AM EST Imaging Radiology [facility] 2nd [facility] [address] [place] [address] 10/18/2024 11:00 AM EST Office Visit Cardiology, [facility] [address] [place] [address] Iraj Arevalo PA-C [address] [place] [address] Health Maintenance Due Date Last Done Comments COVID-19 Vaccine (2022- season) 2023 08/04/2023, 10/11/2022, 02/24/2022, Additional history exists Adult Wellness Visit 05/25/2024 05/25/2023 Depression Screening 05/25/2024 05/25/2023 DXA Scan 06/09/2024 06/09/2022, 01/2022, 05/21/2020, Additional history exists Influenza Vaccine (FLU shot) (#1) 2024 07/04/2023, 07/04/2023, 06/20/2023, Additional history exists CKD PHOS USE SMARTSET 90795 08/11/2024 10/0 03/2023, 07/29/2022, 06/30/2021 HbA1c 08/11/2024 08/11/2023, 01/05, 07/29/2022, Additional history exists Albumin/Creatinine Ratio 02/15/2025 024, 01/21/2023, 01/06/2022 CKD HGB USE SMARTSET 10152 06/21/202506/21, 06/21/2024, 03/07/2024, Additional history exists DTaP,Tdap,and Td Vaccines (3 - Td or Tdap) 08/23/2033 08/23/2023, 08/21/2012 Pneumococcal Vaccine: 65+ Years Completed 11/17/2016, 11/21/2001 Zoster Vaccines Completed 03/21/2020, 01/2020, 12/08/2008 VITAMIN D LEVEL ONCE IN A LIFETIME-USE SMARTSET# [id number] Completed 02/14/2024, 08/11/2023, 02/15/2022, Additional history exists HPV (Gardasil) Vaccine Aged Out No lo nger eligible based on patient's age to complete this topic Hepatitis B Vaccine Aged Out No longe r eligible based on patient's age to complete this topic MENINGOCOCCAL (MENACTRA/MENVEO) Aged Out No longer eligible based on patient's age to complete this topic documented as of this encounter Medical Devices Implanted Type Area Tram Driver Device Identifier Shelf Expiration Date Model / Serial / Lot Lens Intraoc 21.0 - [id number] - [id number] Implanted:Qty: 1 on 02/08/2017 by Markell Montana MD at OR [facility] Right: Eye BAUSCH [employer] LOMB 07/07/2021 [id number] / [id number] / Lens Intraoc 22.0 - [id number] - [id number] Implanted:Qty: 1 on 02/22/2017 by Markell Montana MD at OR [facility] Left: Eye BAUSCH & LOMB 08/06/2021 [id number] / [id number] / [id number] documented as of this encounter Advance Directives [...] and were consensually agreed upon. Care Teams Bobbin Cleaning Machine Operator Relationship Specialty Start Date End Date Preston Villagran MD 200 [place] [address] PCP - General Internal Medicine 01/05/22 documented as of this encounter
--- OUTSIDE RECORDS SUMMARY | 2024-10-15 04:30 | External Medical Summary | Summary of Care ---
Author Name Unknown Organization [facility] Address [address] [place] [address] Phone [phone] Care Team Providers Care Clinical Appeals Rn Name Role Phone Preston Villagran MD Primary Care Provider + Reason for Visit * Reason Onset Date Comments Advice 06/15/2024 Encounter Details Date Type Department Care Team (Late st Contact Info) Description 06/15/2024 Telephone General Internal Medicine [facility] [address] [place] [address] Preston Villagran MD [address] [place] [address] Advice Allergies Active Allergy Reactions Criticality Noted [...] as of this encounter (statuses as of 06/22/2024) Medications Medication Sig Dispensed Refills Start Date [...] 150 MG Oral Capsule (Cleocin) 01/25/2022 Active Omeprazole 40 MG Oral Capsule Delayed Release (PriLOSEC) TAKE 1 CAPSULE BY MOUTH DAILY 1 HOUR BEFORE THE FIRST MEAL OF THE DAY 90 Capsule 3 09/20/2023 Active Terazosin HCl 1 MG Oral Capsule [...] as of this encounter (statuses as of 06/22/2024) Active Problems Problem Noted Date Diagnosed Date [...] nonmelanoma skin cancer 03/06/2018 Overview: BCC right religious 08/23 Enlarged thoracic aorta 11/17/2016 Chronic migraine 10/06/2015 Lumbar degenerative disc disease 10/21/2014 GERD (gastroesophageal reflux disease) 2 Overview: 02/23-EGD-nml ,2mm gastric polyp Gastroparesis 08/21/2012 HTN, goal below 140/90 04/26/2011 Mixed hyperlipidemia 04/26/2011 documented as of this encounter (statuses as of 06/22/2024) Resolved Problems Problem Noted Date Diagnosed Date Resolved Date Protein-calorie malnutrition 06/06/2020 12/01/2020 Headache 02/11/2015 06/08/2017 Thoracic aortic aneurysm 06/04/2011 Overview: Echo needed to follow Diverticulitis of colon 07/2018 documented as of this encounter (statuses as of 06/22/2024) Immunizations Name Administration Dates Next Due COVID-19 mRNA, LNP-s, No Pre serve, 2-Dose Series (Phenomix) 08/07/2021,01/14/2021,12/17/2020 COVID-19, LNP-s, No Preserve , Jose Juan-sucrose, Ages 12+ (Pfizer) 02/24/2022 COVID-19, MRNA-LNP, 23-24, P F, 30 MCG/0.3 mL, 12 YRS AND ABOVE, IM ([facility]) 08/04/2023 Covid-19, Mrna, Lnp-s, Pf, B [...] encounter Miscellaneous Notes * Telephone Encounter - Neha Amaya MED ASSIST - 06/22/2024 3:13 PM EDT Patient was seen on 06.21.24 * Telephone Encounter - Ramila Taveras OSA - 06/15/2024 3:51 PM EDT Alison says she thinks she is having side effects from the Gabapentin such as arm numbness in her arms She did make an appt for the [place] on 06/21/24 which was the soonest. Please advise and call she asks documented in this encounter Plan of Treatment Upcoming Encounters Date Type Department Care Team (Late st Contact Info) Description 07/02/2024 10:00 AM EDT [address], [address] [address] 07/06/2024 11:00 AM EDT Office Visit Audiology [facility] [address] [address] Rosa Rubi Au.D. [address] [place] [address] 07/06/2024 12:30 PM EDT Office Visit Otolaryngology [facility] [address] [address] Jt Flannery DO [address] [place] [address] 08/02/2024 10:30 AM EDT Nurse Only Rheumatology [facility] [address] [facility] [place] [address] Pf, Nurse Rheum [facility]0 [facility] [place] [address] 09/13/2024 10:20 AM EST Office Visit General Internal Medicine [facility] 200 [facility] [place] [address] Preston Villagran MD [address] [place] [address] 09/17/2024 10:30 AM EST Imaging Radiology [facility] 2nd [facility] [address] [place] [address] 10/18/2024 11:00 AM EST Office Visit Cardiology, [facility] [place] [address] Iraj Arevalo PA-C [address] [place] [address] Health Maintenance Due Date Last Done Comments COVID-19 Vaccine ( season) 2023 08/04/2023, 10/11/2022, 02/24/2022, Additional history exists Adult Wellness Visit 05/25/2024 05/25/2023 Depression Screening 05/25/2024 05/25/2023 DXA Scan 06/09/2024 06/09/2022, 0801/2022, 05/21/2020, Additional history exists Influenza Vaccine (FLU shot) (#1) 2024 07/04/2023, 07/04/2023, 06/20/2023, Additional history exists CKD PHOS USE SMARTSET 48391 08/11/2024 10/0 03/2023, 07/29/2022, 06/30/2021 HbA1c 08/11/2024 08/11/2023, 0305/2023, 07/29/2022, Additional history exists Albumin/Creatinine Ratio 02/15/2025 024, 01/21/2023, 01/06/2022 CKD HGB USE SMARTSET 23142 06/21/202506/21, 06/21/2024, 03/07/2024, Additional history exists DTaP,Tdap,and Td Vaccines (3 - Td or Tdap) 08/23/2033 08/23/2023, 08/21/2012 Pneumococcal Vaccine: 65+ Years Completed 11/17/2016, 11/21/2001 Zoster Vaccines Completed 03/21/2020, 01/2020, 12/08/2008 VITAMIN D LEVEL ONCE IN A LIFETIME-USE SMARTSET# [id number] Completed 02/14/2024, 08/11/2023, 02/15/2022, Additional history exists [...] this encounter Medical Devices Implanted Type Area Yeast Maker Device Identifier Shelf Expiration Date Model / Serial / Lot Lens Intraoc 21.0 - [id number] - [id number] Implanted:Qty: 1 on 02/08/2017 by Markell Montana MD at OR [facility] Right: Eye BAUSCH [employer] LOMB 07/07/2021 [id number] / [id number] / Lens Intraoc 22.0 - [id number] - [id number] Implanted:Qty: 1 on 02/22/2017 by Markell Montana MD at OR [facility] Left: Eye BAUSCH & LOMB 08/06/2021 [id number] / [id number] / [id number] documented as of this encounter Advance Directives [...] and were consensually agreed upon. Care Teams Clinical Appeals Rn Relationship Specialty Start Date End Date Preston Villagran MD [address] [facility] [place] [address] PCP - General Internal Medicine 01/05/22 documented as of this encounter
--- OUTSIDE RECORDS SUMMARY | 2024-10-15 04:30 | External Medical Summary | Summary of Care ---
Author Name Unknown Organization [facility] Address [address] [place] [address] Phone [phone] Care Team Providers Care Intermission Coordinator Name Role Phone Preston Villagran MD Primary Care Provider + Reason for Visit * Reason Onset Date Comments Test Results 06/21/2024 Encounter Details Date Type Department Care Team (Late st Contact Info) Description 06/21/2024 Telephone General Internal Medicine [facility] [address] [place] [address] Susana Brown PA-C [address] [place] [address] Test Results Allergies Active Allergy Reactions Criticality [...] as of this encounter (statuses as of 06/21/2024) Medications Medication Sig Dispensed Refills Start Date [...] as of this encounter (statuses as of 06/21/2024) Active Problems Problem Noted Date Diagnosed Date [...] nonmelanoma skin cancer 03/06/2018 Overview: BCC right catholic 08/23 Enlarged thoracic aorta 11/17/2016 Chronic migraine 10/06/2015 Lumbar degenerative disc disease 10/21/2014 GERD (gastroesophageal reflux disease) 2 Overview: 02/23-EGD-nml ,2mm gastric polyp Gastroparesis 08/21/2012 HTN, goal below 140/90 04/26/2011 Mixed hyperlipidemia 04/26/2011 documented as of this encounter (statuses as of 06/21/2024) Resolved Problems Problem Noted Date Diagnosed Date Resolved Date Protein-calorie malnutrition 06/06/2020 12/01/2020 Headache 02/11/2015 06/08/2017 Thoracic aortic aneurysm 06/04/2011 Overview: Echo needed to follow Diverticulitis of colon /0 07/2018 documented as of this encounter (statuses as of 06/21/2024) Immunizations Name Administration Dates Next Due COVID-19 mRNA, LNP-s, No Pre serve, 2-Dose Series ([employer]) 08/07/2021,01/14/2021,12/17/2020 COVID-19, LNP-s, No Preserve , Jose Juan-sucrose, Ages 12+ (Pfizer) 02/24/2022 COVID-19, MRNA-LNP, 23-24, P F, 30 MCG/0.3 mL, 12 YRS AND ABOVE, IM ([facility]) 08/04/2023 Covid-19, Mrna, Lnp-s, Pf, B [...] encounter Miscellaneous Notes * Telephone Encounter - Nandini Reynolds MED ASSIST - 06/21/2024 3:03 PM EDT Patient informed of results and verbalized understanding - will comply to 64 oz of fluid a day. Wasinformed that rest of results are still pending. * Telephone Encounter - Nandini Reynolds MED ASSIST - 06/21/2024 3:02 PM EDT ----- Message from Susana Brown sent at 06/21/2024 2:55 PM EDT ----- BMP looks stable. BUN is elevated, which is not unusual for her. This typically indicates pt is notwell hydrated. 64 fl oz of liquids per day recommended, with majority of this being water. Rest of labs are still pending. documented in this encounter Plan of Treatment Upcoming Encounters Date Type Department Care Team (Late st Contact Info) Description 07/02/2024 10:00 AM EDT Imaging Radiology, [address] [place] [address] 07/06/2024 11:00 AM EDT Office Visit Audiology [facility] [address] [place] [address] Rosa Rubi Au.D. [address] [address] 07/06/2024 12:30 PM EDT Office Visit Otolaryngology [facility] [address] [place] [address] Jt Flannery DO [address] [place] [address] 08/02/2024 10:30 AM EDT Nurse Only Rheumatology [place] [address] [facility] [place] [address] Pf, Nurse Rheum [address] [place] [address] [place] [address] 09/13/2024 10:20 AM EST Office Visit General Internal Medicine [facility] 200 [facility] [place] [address] Preston Villagran MD [address] [place] [address] 09/17/2024 10:30 AM EST Imaging Radiology [facility] 2nd [facility] [address] [place] [address] 10/18/2024 11:00 AM EST Office Visit Cardiology, [facility] [address] [place] [address] Iraj Arevalo PA-C [address] [place] [address] Health Maintenance Due Date Last Done Comments COVID-19 Vaccine (2022- season) 2023 08/04/2023, 10/11/2022, 02/24/2022, Additional history exists Adult Wellness Visit 05/25/2024 05/25/2023 Depression Screening 05/25/2024 05/25/2023 DXA Scan 06/09/2024 06/09/2022, 08/01/2022, 05/21/2020, Additional history exists Influenza Vaccine (FLU shot) (#1) 2024 07/04/2023, 07/04/2023, 06/20/2023, Additional history exists CKD PHOS USE SMARTSET 63396 08/11/2024 100 03/2023, 07/29/2022, 06/30/2021 HbA1c 08/11/2024 08/11/2023, 01/05, 07/29/2022, Additional history exists Albumin/Creatinine Ratio 02/15/2025 024, 01/21/2023, 01/06/2022 CKD HGB USE SMARTSET 21641 03/07/202503/07, 03/07/2024, 06/02/2023, Additional history exists DTaP,Tdap,and Td Vaccines (3 - Td or Tdap) 08/23/2033 08/23/2023, 08/21/2012 Pneumococcal Vaccine: 65+ Years Completed 11/17/2016, 11/21/2001 Zoster Vaccines Completed 03/21/2020, 01/2020, 12/08/2008 VITAMIN D LEVEL ONCE IN A LIFETIME-USE SMARTSET# 61920 Completed 02/14/2024, 08/11/2023, 02/15/2022, Additional history exists [...] this encounter Medical Devices Implanted Type Area Fabric Worker Leader Device Identifier Shelf Expiration Date Model / Serial / Lot Lens Intraoc 21.0 - [id number] - [id number] Implanted:Qty: 1 on 02/08/2017 by Markell Montana MD at OR [facility] Right: Eye BAUSCH [employer] LOMB 07/07/2021 [id number] / [id number] / Lens Intraoc 22.0 - [id number] - [id number] Implanted:Qty: 1 on 02/22/2017 by Markell Montana MD at OR [facility] Left: Eye BAUSCH & LOMB 08/06/2021 [id number] / [id number] / [id number] documented as of this encounter Advance Directives [...] and were consensually agreed upon. Care Teams Intermission Coordinator Relationship Specialty Start Date End Date Preston Villagran MD 200 [place] [address] PCP - General Internal Medicine 01/05/22 documented as of this encounter
--- OUTSIDE RECORDS SUMMARY | 2024-10-15 04:30 | External Medical Summary ---
Author Name Unknown Address Unknown Organization K01:[facility] [place] [address] [facility] [address] Laboratory Report Ordering Provider Test Date Status BILLY BLANCHARD 06/21/2024 11:02:59 Final Observation Date Value Abnormality Reference (Units ) Status SYNC LEUKOCYTES IN BLOOD BY AUTOMATED COUNT 06/21/2024 11:02:59 9.10 4.00-10.80 (K/uL) Final Segs 06/21/2024 11:02:59 73.5 40.0-75.0 (%) Final Lymphs % 06/21/2024 11:02:59 15.7 Below low normal 18.0-42.0 (%) Final Monos 06/21/2024 11:02:59 7.8 1.0-11.0 (%) Final Eosinophils 06/21/2024 11:02:59 1.2 0.0-6.0 (%) Final Basos 06/21/2024 11:02:59 0.5 0.0-2.0 (%) Final Immature Granulocyte, Percent 06/21/2024 11:02:59 1.3 0.0-2.0 (%) Final Absolute Segs 06/21/2024 11:02:59 6.68 1.80-7.70 (K/uL) Final Lymphs, absolute 06/21/2024 11:02:59 1.43 1.00-4.80 (K/ul) Final Monos, Abs 06/21/2024 11:02:59 0.71 0.00-1.10 (K/uL) Final Eos, Abs 06/21/2024 11:02:59 0.11 0.00-0.70 (K/uL) Final Basos, Abs 06/21/2024 11:02:59 0.05 0.00-0.20 (K/uL) Final Immature Granulocytes, Number 06/21/2024 11:02:59 0.12 0.00-0.20 (K/uL) Final Performing Location [facility] [place] [facility] [place] [address]
--- OUTSIDE RECORDS SUMMARY | 2024-10-15 04:30 | External Medical Summary | Summary of Care ---
Author Name Unknown Organization [facility] Address [address] [place] [address] Phone [phone] Care Team Providers Care Personal Fitness Manager Name Role Phone Preston Villagran MD Primary Care Provider + Encounter Details Date Type Department Care Team (Late st Contact Info) Description 06/24/2024 Result Scan Unspecified Department Kimberlee Fernandez, DO [address] [place] [address] <No scans attached> Allergies Active Allergy Reactions [...] as of this encounter (statuses as of 06/24/2024) Medications Medication Sig Dispensed Refills Start Date [...] as of this encounter (statuses as of 06/24/2024) Active Problems Problem Noted Date Diagnosed Date [...] nonmelanoma skin cancer 03/06/2018 Overview: BCC right methodist 08/23 Enlarged thoracic aorta 11/17/2016 Chronic migraine 10/06/2015 Lumbar degenerative disc disease 10/21/2014 GERD (gastroesophageal reflux disease) 2 Overview: 02/23-EGD-nml ,2mm gastric polyp Gastroparesis 08/21/2012 HTN, goal below 140/90 04/26/2011 Mixed hyperlipidemia 04/26/2011 documented as of this encounter (statuses as of 06/24/2024) Resolved Problems Problem Noted Date Diagnosed Date Resolved Date Protein-calorie malnutrition 06/06/2020 12/01/2020 Headache 02/11/2015 06/08/2017 Thoracic aortic aneurysm 06/04/2011 Overview: Echo needed to follow Diverticulitis of colon 07/2018 documented as of this encounter (statuses as of 06/24/2024) Immunizations Name Administration Dates Next Due COVID-19 mRNA, LNP-s, No Pre serve, 2-Dose Series (Discover[employer]) 08/07/2021,01/14/2021,12/17/2020 COVID-19, LNP-s, No Preserve , Jose Juan-sucrose, Ages 12+ (Pfizer) 02/24/2022 COVID-19, MRNA-LNP, 23-24, P F, 30 MCG/0.3 mL, 12 YRS AND ABOVE, IM ([facility]) 08/04/2023 Covid-19, Mrna, Lnp-s, Pf, B ivalent, [...] Description 07/02/2024 10:00 AM EDT Imaging Radiology, [address] [place] [address] 07/06/2024 11:00 AM EDT Office Visit Audiology [facility] [place] [address] Rosa Rubi Au.D. [address] [place] [address] 07/06/2024 12:30 PM EDT Office Visit Otolaryngology [facility] 132 [facility] [place] [address] Jt Flannery DO 132 [facility] [place] [address] 08/02/2024 10:30 AM EDT Nurse Only Rheumatology [place] [address] [place] [address] Pf, Nurse Rheum [address] [place] [address] [place] [address] 09/13/2024 10:20 AM EST Office Visit General Internal Medicine [facility] [address] [place] [address] Preston Villagran MD [address] [place] [address] 09/17/2024 10:30 AM EST Imaging Radiology [facility] 2nd [facility] [place] [address] 10/18/2024 11:00 AM EST Office Visit Cardiology, [facility] 132 [facility] [place] [address] Iraj Arevalo PA-C [address] [place] [address] Health Maintenance Due Date Last Done Comments COVID-19 Vaccine (2022- season) 2023 08/04/2023, 10/11/2022, 02/24/2022, Additional history exists Adult Wellness Visit 05/25/2024 05/25/2023 Depression Screening 05/25/2024 05/25/2023 DXA Scan 06/09/2024 06/09/2022, 01/2022, 05/21/2020, Additional history exists Influenza Vaccine (FLU shot) (#1) 2024 07/04/2023, 07/04/2023, 06/20/2023, Additional history exists CKD PHOS USE SMARTSET 07360 08/11/20240 03/2023, 07/29/2022, 06/30/2021 HbA1c 08/11/2024 08/11/2023, 01/05, 07/29/2022, Additional history exists Albumin/Creatinine Ratio 02/15/2025 024, 01/21/2023, 01/06/2022 CKD HGB USE SMARTSET 37101 06/21/202506/21, 06/21/2024, 03/07/2024, Additional history exists DTaP,Tdap,and Td Vaccines (3 - Td or Tdap) 08/23/2033 08/23/2023, 08/21/2012 Pneumococcal Vaccine: 65+ Years Completed 11/17/2016, 11/21/2001 Zoster Vaccines Completed 03/21/2020, 01/2020, 12/08/2008 VITAMIN D LEVEL ONCE IN A LIFETIME-USE SMARTSET# 56320 Completed 02/14/2024, 08/11/2023, 02/15/2022, Additional history exists [...] this encounter Medical Devices Implanted Type Area University Administrative Assistant Device Identifier Shelf Expiration Date Model / Serial / Lot Lens Intraoc 21.0 - [id number] - [id number] Implanted:Qty: 1 on 02/08/2017 by Markell Montana MD at OR [facility] Right: Eye BAUSCH [employer] LOMB 07/07/2021 [id number] / [id number] / Lens Intraoc 22.0 - [id number] - [id number] Implanted:Qty: 1 on 02/22/2017 by Markell Montana MD at OR [facility] Left: Eye BAUSCH & LOMB 08/06/2021 [id number] / [id number] / [id number] documented as of this encounter Procedures Procedure Name Priority Date/Time Associated Diagnosis Comments CARDIOLOGY SCANNED RESULT 06/24/2024 documented in this encounter Results * CARDIOLOGY SCANNED RESULT (06/24/2024) 06/24/2024 Kimberlee Fernandez DO OTHER documented in this [...] and were consensually agreed upon. Care Teams Personal Fitness Manager Relationship Specialty Start Date End Date Preston Villagran MD 200 [place] [address] PCP - General Internal Medicine 01/05/22 documented as of this encounter
--- OUTSIDE RECORDS SUMMARY | 2024-10-15 04:30 | External Medical Summary | Summary of Care ---
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) 08/04/2023 Covid-19, Mrna, Lnp-s, Pf, [...] Telephone Encounter - Lu Ureña LPN - 06/22/2024 4:55 PM EDT Patient is aware and verbalizes understanding. * Telephone Encounter - Neha Amaya MED ASSIST - 06/22/2024 3:14 PM EDT Left message for the patient to call the office. Upon return call please transfer to a dedicated telephone nurse. * Telephone Encounter - Neha Amaya MED ASSIST - 06/22/2024 3:11 PM EDT ----- Message from Susana Brown sent at 06/22/2024 8:19 AM EDT ----- CBC and thyroid functions look good. documented in this encounter Plan of Treatment Upcoming Encounters Date Type Department Care Team (Late st Contact Info) Description 07/02/2024 10:00 AM EDT Imaging Radiology, [address], [place] [address] 07/06/2024 11:00 AM EDT Office Visit Audiology [facility] [address] [facility] [place] [address] Rosa Rubi Au.D. [address] [place] [address] 07/06/2024 12:30 PM EDT Office Visit Otolaryngology [facility] [address] [place] [address] Jt Flannery DO [address] [place] [address] 08/02/2024 10:30 AM EDT Nurse Only Rheumatology [address] [place] [address] Pf, Nurse Rheum [address] [place] [address] [place] [address] 09/13/2024 10:20 AM EST Office Visit General Internal Medicine [facility] 200 [facility] [place] [address] Preston Villagran MD 200 [facility] [place] [address] 09/17/2024 10:30 AM EST Imaging Radiology [facility] [address] [place] [address] 10/18/2024 11:00 AM EST Office Visit Cardiology, [facility] [address] [place] [address] Iraj Arevalo PA-C [address] [place] [address] Health Maintenance Due Date Last Done Comments COVID-19 Vaccine ( season) 2023 08/04/2023, 10/11/2022, 02/24/2022, Additional history exists Adult Wellness Visit 05/25/2024 05/25/2023 Depression Screening 05/25/2024 05/25/2023 DXA Scan 06/09/2024 06/09/2022, 08/0 01/2022, 05/21/2020, Additional history exists Influenza Vaccine (FLU shot) (#1) 2024 07/04/2023, 07/04/2023, 06/20/2023, Additional history exists CKD PHOS USE SMARTSET 83341 08/11/2024 100 03/2023, 07/29/2022, 06/30/2021 HbA1c 08/11/2024 08/11/2023, 01/05, 07/29/2022, Additional history exists Albumin/Creatinine Ratio 02/15/2025 024, 01/21/2023, 01/06/2022 CKD HGB USE SMARTSET 10438 06/21/202506/21, 06/21/2024, 03/07/2024, Additional history exists DTaP,Tdap,and Td Vaccines (3 - Td or Tdap) 08/23/2033 08/23/2023, 08/21/2012 Pneumococcal Vaccine: 65+ Years Completed 11/17/2016, 11/21/2001 Zoster Vaccines Completed 03/21/2020, 01/2020, 12/08/2008 VITAMIN D LEVEL ONCE IN A LIFETIME-USE SMARTSET# 71521 Completed 02/14/2024, 08/11/2023, 02/15/2022, Additional history exists [...] this encounter Medical Devices Implanted Type Area Inspector Watch Assembly Device Identifier Shelf Expiration Date Model / Serial / Lot Lens Intraoc 21.0 - [id number] - [id number] Implanted:Qty: 1 on 02/08/2017 by Markell Montana MD at OR [facility] Right: Eye [employer] 07/07/2021 [id number] / [id number] / Lens Intraoc 22.0 - [id number] - [id number] Implanted:Qty: 1 on 02/22/2017 by Markell Montana MD at OR [facility] Left: Eye [employer]OM[employer] 08/06/2021 [id number] / [id number] / [id number] documented as of this encounter Advance Directives [...] and were consensually agreed upon. Care Teams Engineering Inspector Relationship Specialty Start Date End Date Preston Villagran MD 200 [place] [address] PCP - General Internal Medicine 01/05/22 documented as of this encounter
--- OUTSIDE RECORDS SUMMARY | 2024-10-15 04:30 | External Medical Summary | Summary of Care ---
Author Name Unknown Organization [facility] Address [address] [place] [address] Phone [phone] Care Team Providers Care Oil Sales And Service Rep Name Role Phone Preston Villagran MD Primary Care Provider + Reason for Visit * Reason Comments Return Visit Patient would like t o discuss medication - specifically gabapentin - was having numbness in arms in morning but is not occurring anymore. Also would like to discuss her excessive fatigue, has been going on for about a month. 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 Chronic migraine [...] mRNA, LNP-s, No Pre serve, 2-Dose Series ([employer]) 08/07/2021,01/14/2021,12/17/2020 COVID-19, LNP-s, No Preserve , Jose Juan-sucrose, Ages 12+ ([employer]) 02/24/2022 COVID-19, MRNA-LNP, 23-24, P F, 30 MCG/0.3 mL, 12 YRS AND ABOVE, IM ([facility]) 08/04/2023 Covid-19, Mrna, Lnp-s, Pf, B ivalent, 30 Mcg, IM, 12 yrs and above ([employer]) 10/11/2022 Pneumococcal Conjugate Vacc, 13 Valent (Prevnar) [...] Sign Reading Time Taken Comments Blood Pressure 136/80 06/21/2024 10:19 AM EDT Pulse 88 06/21/2024 10:53 AM EDT Temperature 35.9 C (96.6 F) 06/21/2024 10:19 AM E DT Respiratory Rate 16 06/21/2024 10:19 AM EDT Oxygen Saturation 100% 06/21/2024 10:19 AM EDT Inhaled Oxygen Concentration - - Weight 50.6 kg (111 lb 9.6 oz) 06/21/2024 10:19 AM EDT Height - - Body Mass Index 21.8 05/23/2024 1:30 PM EDT documented in this encounter Progress Notes * Susana Brown PA-C - 06/21/2024 10:30 AM EDT Images from the original note were not included. History of Present Illness Alison Xiong is a 89 year old female that presents for Return Visit (Patient would like to discuss medication - specifically gabapentin - was having numbness in arms in morning but is not occurring anymore. Also would like to discuss her excessive fatigue, has been going on for about a month.) Pt here today with a c/o fatigue for the last 2 months. Little energy compared to her baseline. Also reports she has lost weight. Noted she has lost 9# from January. Pt admits that she hasn't been eating as much. Gets full quickly and then a short time later will be hungry again. No N/V. Moving bowels fine. No fever/chills. Pt also reports she stopped taking the gabapentin for her RLS as she didn't feel like it was helping. Is managing the symptoms fine without meds currently. Review of Systems: See HPI for pertinent positives. All other review of systems is negative. Physical Exam Vitals: 06/21/24 1019 06/21/24 1053 Temp: 35.9 C (96.6 F) Pulse: 48 88 Resp: 16 SpO2: 100% BP: 136/80 Physical Exam Constitutional: General: She is not in acute distress. Appearance: She is not diaphoretic. HENT: Mouth/Throat: Mouth: Mucous membranes are moist. Pharynx: Oropharynx is clear. Cardiovascular: Rate and Rhythm: Normal rate and regular rhythm. Pulmonary: Effort: Pulmonary effort is normal. Breath sounds: Normal breath sounds. Musculoskeletal: Cervical back: Normal range of motion and neck supple. Skin: General: Skin is warm and dry. Neurological: General: No focal deficit present. Mental Status: She is alert. Mental status is at baseline. I have reviewed the following results: Assessment and Plan Fatigue, unspecified type On review of pt's chart, her metoprolol was changed from regular release to extended release and the dose was bumped up to 100 mg daily 2 months ago by cardiology. Suspect this is a significant contributor to her fatigue. Will check some labs to make sure there is no anemia or thyroid disease. - CBC WITH WBC DIFFERENTIAL AND ANEMIA REFLEX WORKUP; Future - TSH WITH FREE T4 IF INDICATED; Future - BASIC METABOLIC PANEL; Future Loss of weight Discussion with pt the importance of protein and calorie intake to maintain muscle and weight. Not unusual for appetite to decrease with age. Can eat 4-6 small meals per day. Also discussed adding a boost or ensure drink daily to help bolster her nutrition. HTN, goal below 140/90 Controlled. Pt advised to discuss her metoprolol with cardiology as the dose on this may need adjusted. Paroxysmal atrial fibrillation (HCC) F/up with cardio. Tachy-michael syndrome (HCC) F/up with cardio. RLS (restless legs syndrome) Stable without meds. Wrap-Up Follow Up: Return if symptoms worsen or fail to improve. Time: I spent a total of 40-54 minutes (exact time 40 mins) on the date of service in preparation, delivery, and documentation of the care provided to Alisno Xiong excluding any time spent in the performance of separately billed services. documented in this encounter Nursing Notes * Nandini Reynolds, MED ASSIST - 06/21/2024 10:25 AM EDT Chief Complaint Patient presents with Return Visit Patient would like to discuss medication - specifically gabapentin - was having numbness in arms inmorning but is not occurring anymore. Also would like to discuss her excessive fatigue, has been going on for about a month. documented in this encounter Plan of Treatment Upcoming Encounters Date Type Department Care Team (Late st Contact Info) Description 07/02/2024 10:00 AM EDT Imaging Radiology, [place] [address] [address] [place] [address] 07/06/2024 11:00 AM EDT Office Visit Audiology [facility] [address] [place] [address] Rosa Rubi Au.D. [address] [place] [address] 07/06/2024 12:30 PM EDT Office Visit Otolaryngology [facility] [address] [place] [address] Jt Flannery, [address] [place] [address] 08/02/2024 10:30 AM EDT Nurse Only Rheumatology [place] [address] [address] Pf, Nurse Rheum [facility] [place] [address] 09/13/2024 10:20 AM EST Office Visit General Internal Medicine [facility] 200 [facility] [place] [address] Preston Villagran MD 200 [facility] [place], [place] [address] 09/17/2024 10:30 AM EST Imaging Radiology [facility] 2nd [facility] [address] [facility] [place] [address] 10/18/2024 11:00 AM EST Office Visit Cardiology, [facility] [address] [facility] [place] [address] Iraj Arevalo PA-C [address] [place] [address] Pending Results Name Type Priority Associated Diagnoses Date /Time CBC WITH WBC DIFFERENTIAL AND ANEMIA REFLEX WORKUP Lab Routine Fatigue, unspecified type 06/21/2024 11:02 AM EDT TSH WITH FREE T4 IF INDICATED Lab Routine Fatigue, unspecified type 06/21/2024 11:02 AM EDT BASIC METABOLIC PANEL Lab Routine Fatigue, unspecified type 06/21/2024 11:02 AM EDT Scheduled Orders Name Type Priority Associated Diagnoses Orde r Schedule CBC WITH WBC DIFFERENTIAL AND ANEMIA REFLEX WORKUP Lab Routine Fatigue, unspecified type Expected: 06/21/2024 (Approximate), Expires: 06/21/2025 TSH WITH FREE T4 IF INDICATED Lab Routine Fatigue, unspecified type Expected: 06/21/2024 (Approximate), Expires: 06/21/2025 BASIC METABOLIC PANEL Lab Routine Fatigue, unspecified type Expected: 06/21/2024 (Approximate), Expires: 06/21/2025 Health Maintenance Due Date Last Done Comments COVID-19 Vaccine ( season) 2023 08/04/2023, 10/11/2022, 02/24/2022, Additional history exists Adult Wellness Visit 05/25/2024 05/25/2023 Depression Screening 05/25/2024 05/25/2023 DXA Scan 06/09/2024 06/09/2022, 08/0 01/2022, 05/21/2020, Additional history exists Influenza Vaccine (FLU shot) (#1) 2024 07/04/2023, 07/04/2023, 06/20/2023, Additional history exists CKD PHOS USE SMARTSET 23536 08/11/2024 100 03/2023, 07/29/2022, 06/30/2021 HbA1c 08/11/2024 08/11/2023, 01/05, 07/29/2022, Additional history exists Albumin/Creatinine Ratio 02/15/2025 024, 01/21/2023, 01/06/2022 CKD HGB USE SMARTSET 26354 03/07/202503/07, 03/07/2024, 06/02/2023, Additional history exists DTaP,Tdap,and Td Vaccines (3 - Td or Tdap) 08/23/2033 08/23/2023, 08/21/2012 Pneumococcal Vaccine: 65+ Years Completed 11/17/2016, 11/21/2001 Zoster Vaccines Completed 03/21/2020, 01/2020, 12/08/2008 VITAMIN D LEVEL ONCE IN A LIFETIME-USE SMARTSET# 64505 Completed 02/14/2024, 08/11/2023, 02/15/2022, Additional history exists [...] this encounter Medical Devices Implanted Type Area Cold Press Loader Device Identifier Shelf Expiration Date Model / Serial / Lot Lens Intraoc 21.0 - [id number] - [id number] Implanted:Qty: 1 on 02/08/2017 by Markell [place] MD at OR [facility] Right: Eye [employer] 07/07/2021 [id number] / [id number] / Lens Intraoc 22.0 - [id number] - [id number] Implanted:Qty: 1 on 02/22/2017 by Markell Montana MD at OR [facility] Left: Eye [employer]OMB 08/06/2021 [id number] / [id number] / [id number] documented as of this encounter Visit Diagnoses Diagnosis Fatigue, unspecified type- Primary Loss of weight HTN, goal below 140/90 Unspecified essential hypertension Paroxysmal atrial fibrillation (HCC) Atrial fibrillation Tachy-michael syndrome (HCC) Sinoatrial node dysfunction RLS (restless legs syndrome) Restless legs syndrome (RLS) documented in this encounter Advance Directives * [...] and were consensually agreed upon. Care Teams Oil Sales And Service Rep Relationship Specialty Start Date End Date Preston Villagran MD 200 [facility] [place] [address] PCP - General Internal Medicine 01/05/22 documented as of this encounter
--- OUTSIDE RECORDS SUMMARY | 2024-10-15 04:30 | External Medical Summary | Summary of Care ---
Author Name Unknown Organization [facility] Address [address] [place] [address] Phone [phone] Care Team Providers Care Manager Transfer Name Role Phone Preston Villagran MD Primary Care Provider + Reason for Visit * Reason Comments Outpatient Testing Encounter Details Date Type Department Care Team (Late st Contact Info) Description 06/21/2024 11:00 AM EDT Laboratory Laboratory Scenery [facility] [address] [place] [phone] [place], Lab Scenery [address] [place] [address] Fatigue, unspecified type Allergies Active Allergy Reactions Criticality Noted Date [...] nonmelanoma skin cancer 03/06/2018 Overview: BCC right buddhism 08/23 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) 08/04/2023 Covid-19, Mrna, Lnp-s, Pf, [...] Description 07/02/2024 10:00 AM EDT [address], [address] [place] [address] 07/06/2024 11:00 AM EDT Office Visit Audiology [facility] [address] [place] [address] Rosa Rubi Au.D. [address] [place] [address] 07/06/2024 12:30 PM EDT Office Visit Otolaryngology [facility] 132 [facility] [place] [address] Jt Flannery DO 132 [facility] [place] [address] 08/02/2024 10:30 AM EDT Nurse Only Rheumatology [place] [address] [place] [address] Pf, Nurse Rheum [facility] [place] [address] 09/13/2024 10:20 AM EST Office Visit General Internal Medicine [facility] [address] [place] [address] Preston Villagran MD [address] [facility] [place] [address] 09/17/2024 10:30 AM EST Imaging Radiology [facility] 2nd [facility] [place] [address] 10/18/2024 11:00 AM EST Office Visit Cardiology, [facility] [address] [place] [address] Iraj Arevalo PA-C [address] [place] [address] Pending Results Name Type Priority Associated Diagnoses Date /Time CBC WITH WBC DIFFERENTIAL AND ANEMIA REFLEX WORKUP Lab Routine Fatigue, unspecified type 06/21/2024 11:02 AM EDT TSH WITH FREE T4 IF INDICATED Lab Routine Fatigue, unspecified type 06/21/2024 11:02 AM EDT BASIC METABOLIC PANEL Lab Routine Fatigue, unspecified type 06/21/2024 11:02 AM EDT ANEMIA CBC Lab Routine Fatigue, unspecified type 06/21/2024 11:02 AM EDT DIFFERENTIAL, AUTOMATED Lab Routine Fatigue, unspecified type 06/21/2024 11:02 AM EDT ANEMIA REFLEX CHEMISTRY HOLD Lab Routine Fatigue, unspecified type 06/21/2024 11:02 AM EDT Health Maintenance Due Date Last Done Comments COVID-19 Vaccine ( season) 2023 08/04/2023, 10/11/2022, 02/24/2022, Additional history exists Adult Wellness Visit 05/25/2024 05/25/2023 Depression Screening 05/25/2024 05/25/2023 DXA Scan 06/09/2024 06/09/2022, 01/2022, 05/21/2020, Additional history exists Influenza Vaccine (FLU shot) (#1) 2024 07/04/2023, 07/04/2023, 06/20/2023, Additional history exists CKD PHOS USE SMARTSET 28373 08/11/2024 10/0 03/2023, 07/29/2022, 06/30/2021 HbA1c 08/11/2024 08/11/2023, 01/05, 07/29/2022, Additional history exists Albumin/Creatinine Ratio 02/15/2025 024, 01/21/2023, 01/06/2022 CKD HGB USE SMARTSET 19532 03/07/202503/07, 03/07/2024, 06/02/2023, Additional history exists DTaP,Tdap,and Td Vaccines (3 - Td or Tdap) 08/23/2033 08/23/2023, 08/21/2012 Pneumococcal Vaccine: 65+ Years Completed 11/17/2016, 11/21/2001 Zoster Vaccines Completed 03/21/2020, 01/2020, 12/08/2008 VITAMIN D LEVEL ONCE IN A LIFETIME-USE SMARTSET# 11223 Completed 02/14/2024, 08/11/2023, 02/15/2022, Additional history exists [...] this encounter Medical Devices Implanted Type Area Collections Analyst Device Identifier Shelf Expiration Date Model / Serial / Lot Lens Intraoc 21.0 - [id number] - [id number] Implanted:Qty: 1 on 02/08/2017 by Markell [place] MD at OR [facility] Right: Eye [employer] 07/07/2021 [id number] / [id number] / Lens Intraoc 22.0 - [id number] - [id number] Implanted:Qty: 1 on 02/22/2017 by Markell Montana MD at OR [facility] Left: Eye [employer]OM[employer] 08/06/2021 [id number] / [id number] / [id number] documented as of this encounter Visit Diagnoses Diagnosis Fatigue, unspecified type documented in this encounter Advance Directives * [...] were consensually agreed upon. Care Teams Manager Transfer Relationship Specialty Start Date End Date Preston Villagran MD 200 [facility] [place] [address] PCP - General Internal Medicine 01/05/22 documented as of this encounter
--- OUTSIDE RECORDS SUMMARY | 2024-10-15 04:30 | External Medical Summary | Summary of Care ---
Author Name Unknown Organization [facility] Address [address] [place] [address] Phone [phone] Care Team Providers Care Electromechanical Assembler Name Role Phone Preston Saenz MD Primary Care Provider + Reason for Visit * Reason Comments eRx-Medication Refill Encounter Details Date Type Department Care Team (Late st Contact Info) Description 06/29/2024 Refill General Internal Medicine [facility] [address] [place] [address] Preston Saenz MD [address] [place] [address] Allergies Active Allergy Reactions Criticality Noted Date [...] 10/04/2023 Active SUMAtriptan Succinate 100 MG Oral TabletIndications [...] THE DAY 90 Capsule 1 07/02/2024 Active Omeprazole 40 MG Oral Capsule Delayed Release (PriLOSEC) TAKE 1 CAPSULE BY MOUTH DAILY 1 HOUR BEFORE THE FIRST MEAL OF THE DAY 90 Capsule 3 09/20/2023 4 Discontinued documented as of this encounter [...] nonmelanoma skin cancer 03/06/2018 Overview: BCC right spiritism 08/23 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) 08/04/2023 Covid-19, Mrna, Lnp-s, Pf, B ivalent, 30 Mcg, IM, 12 yrs and above ([employer]) 10/11/2022 Pneumococcal Conjugate Vacc, 13 Valent (Prevnar) [...] encounter Miscellaneous Notes * Telephone Encounter - Lise Webster [facility] - 07/02/2024 12:33 PM EDTSigned Prescriptions: Disp Refills Omeprazole 40 MG Oral Capsule Delayed Rele*90 Cap*1 Sig: TAKE 1 CAPSULE BY MOUTH DAILY 1 HOUR BEFORE THE FIRST MEAL OF THE DAYAuthorizing Provider: PRESTON SAENZ User: LISE WEBSTER documented in this encounter Plan of Treatment Upcoming Encounters Date Type Department Care Team (Late st Contact Info) Description 07/06/2024 11:00 AM EDT Office Visit Audiology [facility] [address] [id number] Rosa Rubi Au.D. [address] [place] [address] 07/06/2024 12:30 PM EDT Office Visit Otolaryngology [facility] [address] [address] Jt Flannery DO [address] [place] [address] 08/02/2024 10:30 AM EDT Nurse Only Rheumatology [place] [id number] [facility] [place], [place] [address] Pf, Nurse Rheum [address] [place] [address] [place] [address] 09/13/2024 10:20 AM EST Office Visit General Internal Medicine [facility] [address] [facility] [place] [address] Preston Saenz MD [address] [facility] [place] [address] 09/17/2024 10:30 AM EST Imaging Radiology [address] [place] [address] 10/18/2024 11:00 AM EST Office Visit Cardiology, [facility] [address] [place] [address] Iraj Arevalo, PA-C [address] [place] [address] Health Maintenance Due Date Last Done Comments COVID-19 Vaccine ( season) 2023 08/04/2023, 10/11/2022, 02/24/2022, Additional history exists Adult Wellness Visit 05/25/2024 05/25/2023 Depression Screening 05/25/2024 05/25/2023 DXA Scan 06/09/2024 06/09/2022, 0801/2022, 05/21/2020, Additional history exists Influenza Vaccine (FLU shot) (#1) 2024 07/04/2023, 07/04/2023, 06/20/2023, Additional history exists CKD PHOS USE SMARTSET 66723 08/11/2024 10/0 03/2023, 07/29/2022, 06/30/2021 HbA1c 08/11/2024 08/11/2023, 0305/2023, 07/29/2022, Additional history exists Albumin/Creatinine Ratio 02/15/2025 024, 01/21/2023, 01/06/2022 CKD HGB USE SMARTSET 70748 06/21/202506/21, 06/21/2024, 03/07/2024, Additional history exists DTaP,Tdap,and Td Vaccines (3 - Td or Tdap) 08/23/2033 08/23/2023, 08/21/2012 Pneumococcal Vaccine: 65+ Years Completed 11/17/2016, 11/21/2001 Zoster Vaccines Completed 03/21/2020, 01/2020, 12/08/2008 VITAMIN D LEVEL ONCE IN A LIFETIME-USE SMARTSET# [id number] Completed 02/14/2024, 08/11/2023, 02/15/2022, Additional history exists [...] this encounter Medical Devices Implanted Type Area Hand Reamer Device Identifier Shelf Expiration Date Model / Serial / Lot Lens Intraoc 21.0 - [id number] - [id number] Implanted:Qty: 1 on 02/08/2017 by Markell Montana MD at OR [facility] Right: Eye [employer] 07/07/2021 [id number] / [id number] / Lens Intraoc 22.0 - [id number] - [id number] Implanted:Qty: 1 on 02/22/2017 by Markell Montana MD at OR [facility] Left: Eye [employer] 08/06/2021 [id number] / [id number] / [id number] documented as of this encounter Advance Directives [...] and were consensually agreed upon. Care Teams Electromechanical Assembler Relationship Specialty Start Date End Date Preston Saenz MD [address] [place] [id number] PCP - General Internal Medicine 01/05/22 documented as of this encounter
--- OUTSIDE RECORDS SUMMARY | 2024-10-15 04:31 | External Medical Summary ---
Author Name Unknown Address Unknown Organization [id number]:[facility] – [place] - [address] [facility] [address] Laboratory Report Ordering Provider Test Date Status BILLY BLANCHARD 06/21/2024 11:02:59 Final Observation Date Value Abnormality Reference (Units ) Status WBC, Total 06/21/2024 11:02:59 9.10 4.00-10.8 0 (K/uL) Final RBC 06/21/2024 11:02:59 4.38 3.85-5.15 (M/uL) Final Hemoglobin 06/21/2024 11:02:59 13.5 12.0-15.3 (g/dL) Final Anemia reflex testing trigge rs on a HGB < 12.0 for Females and HGB < 13.0 for Males in accordance with the WHO Anemia Guidelines
Anemia reflex testing triggers on a HGB < 12.0 for Females and HGB < 13.0 for Males in accordance with the WHO Anemia Guidelines HCT 06/21/2024 11:02:59 41.8 36.0-45.2 (%) Final MCV 06/21/2024 11:02:59 95.4 81.5-97.5 (fL) Final MCH 06/21/2024 11:02:59 30.8 27.0-34.0 (pg) Final MCHC 06/21/2024 11:02:59 32.3 32.0-36.0 (g/dL) Final RDW 06/21/2024 11:02:59 13.0 11.5-15.5 (%) Final Platelets 06/21/2024 11:02:59 188 140-400 (K /uL) Final MPV 06/21/2024 11:02:59 9.8 6.6-11.1 ( fL) Final Nucleated erythrocytes/100 leukocytes [Ratio] in Blood by Automated count 06/21/2024 11:02:59 0 <=0 (/100 WBCs) Fi [facility] Performing Location [facility] – [place], [place] - [address] [facility] [address]
--- OUTSIDE RECORDS SUMMARY | 2024-10-15 04:31 | External Medical Summary ---
Author Name Unknown Address Unknown Organization K09:[facility] [place] [address] Laboratory Report Ordering Provider Test Date Status BILLY BLANCHARD 06/21/2024 11:02:59 Final Observation Date Value Abnormality Reference (Units ) Status BUN 06/21/2024 11:02:59 31 Above high normal 6-20 (mg/dL) Final Creatinine 06/21/2024 11:02:59 0.9 0.5-1.0 (mg/dL) Final Glomerular filtration rate/1.73 sq M.predicted [Volume Rate/Area] in Serum, Plasma or Blood by Creatinine-based formula (CKD-EPI) 06/21/2024 11:02:59 61 >=60 (mL/min) Final eGFR is calculated based on the CKD-EPI 2020 equation. Sodium 06/21/2024 11:02:59 138 135-146 (m mol/L) Final Potassium 06/21/2024 11:02:59 4.3 3.5-5.1 (m mol/L) Final Cl 06/21/2024 11:02:59 101 98-107 (mm ol/L) Final CO2 06/21/2024 11:02:59 26 22-32 (mmo l/L) Final Anion gap 06/21/2024 11:02:59 11 7-15 (mmol /L) Final Glucose 06/21/2024 11:02:59 102 70-120 (mg /dL) Final Calcium 06/21/2024 11:02:59 9.3 8.4-10.2 ( mg/dL) Final Performing Location [facility] [place] [address]
[2024-10-15 06:11] LABS: Hematocrit (blood only) 41.5 % (37.0-47.0); Hemoglobin 13.5 g/dl (12.0-16.0); Mean Corpuscular Hemoglobin 30.5 pg (25.0-34.0); Mean Corpuscular Hgb Conc 32.5 g/dL (32.0-36.0); Mean Corpuscular Volume 93.7 fL (80.0-100.0); Mean Platelet Volume 9.4 fL (9.4-12.4); Platelet Count 229 K/uL (130-400); RDW Coefficient of Variation 12.6 % (11.5-14.5); RDW Standard Deviation 43.6 fL (36.4-46.3); Red Blood Count 4.43 M/uL (4.20-5.40)
[2024-10-15 06:25] LABS: BUN Creatinine Ratio 22.9 (10-20); Calcium 8.9 mg/dl (8.6-10.3); Creatinine Clr Calc Pharmacy 30.6 ml/min; Magnesium 2.1 mg/dl (1.7-2.4); Phosphorus 3.1 mg/dl (2.5-4.9); Potassium 4.2 mmol/L (3.5-5.1)
--- NOTE | 2024-10-15 07:31 | Hospitalist Progress Note ---
Date of Service October 15, 2024 Assessment & Plan (1) Atrial fibrillation with rapid ventricular response: Plan: 89-year-old female with past medical history significant for hyperlipidemia, prediabetes, enlarged thoracic aorta, paroxysmal atrial fibrillation, tachybradycardia syndrome status post pacemaker, hypertension, Raynaud's phenomenon, gastroparesis, GERD, CKD stage III, right kidney stone, lumbar degenerative disc disease, senile osteoporosis, restless leg syndrome, chronic migraine, history of colonic diverticulitis presents with palpitations and chest discomfort. Seems around 4 PM p.m. when she was in concert she noticed palpitations. She went home and rested but they were not going away so she came to the ER. She also complaining of pain in her lower chest and epigastric region. Has some epigastric tenderness. Denies any nausea. No sweating. No shortness of breath. No headache or dizziness. No runny nose or sore throat. No fevers. Appetite is okay. Normal bowel and bladder movements. A-fib with rapid ventricular response Received 2 dose of IV Lopressor 5 mg in the ER which did not improve and was started on Cardizem drip Continue home metoprolol succinate and Eliquis Close monitoring telemetry echo obtained Consulted cardiology - started on amiodarone, plan for cardioversion tmrw Chest pain Also some epigastric tenderness EKG no acute findings Initial troponin unremarkable follow serial enzymes and echo, cardiology following as above Closely monitor on telemetry Epigastric tenderness iv pepcid, IV PPI bentyl carafate CT abdomen/pelvis GI consult Tachybradycardia syndrome Status post pacemaker Prediabetes Will follow HbA1c levels History of CKD stage III Will follow labs Hypertension cardiac meds, as above GERD On Protonix DVT prophylaxis On Eliquis. Disposition Telemetry Full code. Admission and Anticipated Discharge Date Admission Date: October 14, 2024 Subjective Pt seen in follow up of Afib w/ RVR Pt also complained of epigastric abd. pain, initially resolved with bentyl - pt states she has been on bentyl for about 6 months, also reports to have recent abd. US done which was unremarkable. Does not recall eval by GI Pt still in Afib, currently pain free, however I was notified by RN later that abd. pain recurred - CT abd. pain obtained, and GI consulted, in addition to med. management (IV PPI, bentyl, carafate) Review of Systems Review of Systems: All systems reviewed & are unremarkable except as noted in Subjective Physical Exam Physical Exam: General- slim elderly F in NAD Head- atraumatic Eyes- PERRL. Neck- supple Lungs- clear to auscultation no wheezing or crackles Heart- irregular rhythm; tachycardia,no murmur, no gallop. Abdomen- normal bowel sounds, soft, nontender, no distension. Extremities- no pretibial edema, no erythema seen Neuro- alert, oriented ; PERRL, no facial palsy; no dysarthria; moves extremities Results & Data Results & Data Vital Signs (Past 12 Hours) Vital Signs Temp Pulse Pulse Resp BP Pulse Ox O2 Del Method 10/15/24 03:20 36.9 C 98 H 18 115/75 93 Room Air 10/14/24 23:00 95 H 10/14/24 22:20 36.2 C L 113 H 18 138/98 96 Room Air 10/14/24 22:00 Room Air Laboratory Results 10/15/24 10/14/24 10/14/24 Range/Units 05:49 17:12 10:44 WBC 7.40 (4.8-10.8) K/ul RBC 4.43 (4.20-5.40) M/uL Hgb 13.5 (12.0-16.0) g/dl Hct 41.5 (37.0-47.0) % MCV 93.7 (80.0-100.0) fL MCH 30.5 (25.0-34.0) pg MCHC 32.5 (32.0-36.0) g/dL RDW Std Deviation 43.6 (36.4-46.3) fL RDW Coeff of Ling 12.6 (11.5-14.5) % Plt Count 229 (130-400) K/uL MPV 9.4 (9.4-12.4) fL Sodium 138 (136-145) mmol/L Potassium 4.2 (3.5-5.1) mmol/L Chloride 105 (98-107) mmol/L Carbon Dioxide 28 (21-32) mmol/L Anion Gap 5 (3-11) BUN 22 (6-23) mg/dl Creatinine 0.96 (0.6-1.2) mg/dl Est Cr Clr Drug Dosing 30.6 ml/min eGFR 56.91 BUN/Creatinine Ratio 22.9 H (10-20) Glucose 117 H (70-99(Fasting)) mg/dl Calcium 8.9 (8.6-10.3) mg/dl Phosphorus 3.1 (2.5-4.9) mg/dl Magnesium 2.1 (1.7-2.4) mg/dl Troponin I High Sens 17.3 H 18.0 H D (0-14) pg/ml Medications Administered Current Inpatient Medications Acetaminophen (Acetaminophen 325 Mg Tab) 650 mg PO Q4H PRN PRN Reason: Pain or Fever Stop: 11/13/24 02:37 Last Admin: 10/14/24 06:50 Dose: 650 mg Apixaban (Apixaban 2.5 Mg Tab) 2.5 mg PO BID [facility] Stop: 11/13/24 08:59 Last Admin: 10/14/24 20:09 Dose: 2.5 mg Famotidine (Pepcid 20mg Iv Push) 20 mg in 5 mls @ 2.5 mls/min IV DAILY MANUELITO Stop: 11/13/24 08:59 Last Admin: 10/14/24 10:12 Dose: 2.5 mls/min Amiodarone HCl/Dextrose (Nexterone / D5w) 360 mg in 200 mls @ 16.667 mls/hr IV .Q12H MANUELITO Stop: 11/13/24 15:59 Last Infusion: 10/15/24 07:26 Dose: 0.5 mg/min, 16.7 mls/hr Metoprolol Succinate (Metoprolol Succ 50mg Ext Rel Tab) 100 mg PO DAILY [facility] Stop: 11/13/24 08:59 Last Admin: 10/14/24 07:38 Dose: 100 mg Metoprolol Tartrate (Metoprolol Tartrate 1 Mg/Ml Vial) 5 mg IV Q6 PRN PRN Reason: Tachycardia Stop: 11/13/24 02:37 Nitroglycerin (Nitroglycerin Sl 0.4 Mg/Tab Tab) 0.4 mg SL Q5M PRN PRN Reason: Chest Pain Stop: 11/13/24 02:37 Pantoprazole Sodium (Pantoprazole 40 Mg Tab) 40 mg PO DAILY MANUELITO Stop: 11/13/24 08:59 Last Admin: 10/14/24 07:41 Dose: 40 mg Polyethylene Glycol (Polyethylene (Miralax) 17 Gm Pack) 17 gm PO DAILY PRN PRN Reason: Constipation Stop: 11/13/24 02:37 Rosuvastatin Calcium (Rosuvastatin Calcium 5 Mg Tab) 5 mg PO DAILY MANUELITO Stop: 11/13/24 08:59 Last Admin: 10/14/24 07:41 Dose: 5 mg Sumatriptan Succinate (Sumatriptan Succinate 100 Mg Tab) 100 mg PO DAILY PRN PRN Reason: Migraine Headache Stop: 11/13/24 18:01 Last Admin: 10/14/24 18:37 Dose: 100 mg Terazosin HCl (Terazosin Hcl 1 Mg Cap) 1 mg PO HS [facility] Stop: 11/13/24 20:59
[2024-10-15] MEDS: METOPROLOL TARTRATE 1 MG/ML VIAL IV PRN (09:00)
--- NOTE | 2024-10-15 09:28 | Electrocardiogram Report ---
Test Reason : Blood Pressure : */* mmHG Vent. Rate : 131 BPM Atrial Rate : * BPM P-R Int : * ms QRS Dur : 84 ms QT Int : 306 ms P-R-T Axes : * -6 78 degrees QTcB Int : 451 ms Atrial fibrillation with rapid ventricular response Abnormal ECG When compared with ECG of 02-May-2024 03:35, Atrial fibrillation has replaced Electronic atrial pacemaker Vent. rate has increased by 46 bpm Confirmed by Adama Jacome ([id number]) on 10/15/2024 9:28:33 AM Referred By: REFERRED SELF Confirmed By: Adama Jacome
--- NOTE | 2024-10-15 09:29 | Electrocardiogram Report ---
Test Reason : Blood Pressure : */* mmHG Vent. Rate : 106 BPM Atrial Rate : 129 BPM P-R Int : * ms QRS Dur : 86 ms QT Int : 380 ms P-R-T Axes : * -7 46 degrees QTcB Int : 504 ms Atrial fibrillation with rapid ventricular response Abnormal ECG When compared with ECG of 13-Oct-2024 22:45, No significant change was found Confirmed by Adama Jacome ([id number]) on 10/15/2024 9:28:39 AM Referred By: REFERRED SELF Confirmed By: Adama Jacome
--- NOTE | 2024-10-15 09:29 | Electrocardiogram Report ---
Test Reason : Blood Pressure : */* mmHG Vent. Rate : 107 BPM Atrial Rate : 82 BPM P-R Int : * ms QRS Dur : 86 ms QT Int : 400 ms P-R-T Axes : * 79 -35 degrees QTcB Int : 534 ms Atrial fibrillation with rapid ventricular response Prolonged QT Abnormal ECG When compared with ECG of 15-Oct-2024 06:30, No significant change Confirmed by Adama Jacome ([id number]) on 10/15/2024 9:29:01 AM Referred By: REFERRED SELF Confirmed By: Adama Jacome
--- NOTE | 2024-10-15 09:47 | CT Scan Report ---
CT abd pelvis wo con CLINICAL HISTORY: abd. pain TECHNIQUE: Helical axial images of the abdomen and pelvis were obtained. Automated dose lowering tech niques and/or adjustment according to patient size were utilized for this exam. This exam was perfor med without intravenous contrast. CT DOSE: 439.57 mGy.cm COMPARISON: Comparison is made to CT abdomen pelvis 09/18/2024 FINDINGS: Lower chest: Peripheral interstitial thickening is seen. Liver: Focal fatty changes are noted about the falciform ligament. Gallbladder and biliary tree: Patient is status post cholecystectomy. No intra- or extrahepatic bilia ry ductal dilation. Pneumobilia is incidentally noted. Pancreas: Unremarkable, no focal lesions. Spleen: Calcifications are noted in the spleen compatible with prior granulomatous disease. Adrenals: Unremarkable. Kidneys and ureters: Renal cysts are seen. Bladder: Unremarkable. Reproductive organs: Unremarkable. Bowel: Diverticulosis is seen without diverticulitis. The appendix is normal. Lymph nodes Retroperitoneal: Unremarkable. Pelvic: Unremarkable. Mesenteric: Unremarkable. Peritoneum: Normal. Vessels: Atherosclerotic calcifications are seen. Abdominal wall: Unremarkable. Bones: Degenerative changes in the visualized spine. IMPRESSION: 1. No acute abnormalities to explain abdominal pain. 2. Pneumobilia is seen which may represent incompetent sphincter of Oddi. 3. Diverticulosis without diverticulitis. ACT 112: Negative or not required by law. Electronically signed by: Petros Gordon M.D. 10/15/2024 9:45 AM
[2024-10-15] MEDS: DICYCLOMINE HCL 10 MG CAP PO ONE (09:57)
[2024-10-15] MEDS: DICYCLOMINE HCL 10 MG CAP PO PRN (10:57)
--- NOTE | 2024-10-15 11:23 | Gastrointestinal Consultation ---
Date of Consultation October 15, 2024 Assessment & Plan (1) Abdominal pain: Plan Patient is an 89 year old female who has developed some stomach pain during this admission for A fib. She tells me she has had issues similar in the past. CT this morning was without acute abnormalities. It is possible that symptoms may be a component of gastritis as she does feel symptoms were triggered with eating. - agree with starting protonix 40mg IV BID. can assess how she does with adding this. - continue with famotidine 20 daily. - she is also being written for dicyclomine 10mg bid prn for pain. can assess how she does with this. - check LFTs and lipase given RUQ tenderness on exam. - further recommendations will follow, see Dr. Thomas's append. Supervising Physician Co-Signing Physician Notes I examined the patient and reviewed patient's chart , laboratory data and imaging studies. I agree with with assessment and plan of care as suggested by advanced practice provider. Upper abdominal abdominal since yesterday evening. Worsening after eating. She is s/p cholecystectomy. History of ERCP with presumed sphincterotomy as evidenced by pneumobilia on CT scan. Symptoms appear to be improving. Continue Protonix and dicyclomine. Continue to observe. History of Present Illness Reason for Consultation: abdominal pain, acute on chronic Requesting Physician: Nic Prabhakar MD Attending Physician: Nic Prabhakar MD History of Present Illness Patient is an 89 year old female with a past medical history of hyperlipidemia, prediabetes, enlarged thoracic aorta, paroxysmal atrial fibrillation, tachybradycardia syndrome status post pacemaker, hypertension, Raynaud's phenomenon, gastroparesis, GERD, CKD stage III, right kidney stone, lumbar degenerative disc disease, senile osteoporosis, restless leg syndrome, chronic migraine, history of colonic diverticulitis who presented to the ED on 10/13 with complaints of palpitations and chest discomfort. She is admitted with A fib with RVR and following with cardiology. She reports that she developed some new onset abdominal pain last evening after dinner. she had an egg salad sandwich which did not agree with her. She reports doing toast, an orange, and tea this morning with breakfast which also seemed to aggravate her symptoms. She rates pain as 9/10- 10/10. she is unable to describe it. she had unremarkable CT this morning other than some pneumobilia suggestive of possible incompetent sphincter of oddi. no nausea, vomiting, acid reflux. she has had similar issues in the past. No bowel movements since admission, but admits she had not been eating well since admission. She had an EGD done with [facility] in the past 2 years that she reports was unremarkable. I do not have these records. 10/15/24 CBC, BMP unremarkable for cause of pain. Allergies Allergy/AdvReac Type Severity Reaction Status Date / Time sulfamethoxazole Allergy Intermediate RASH Verified 01/20/24 09:58 trimethoprim Allergy Intermediate RASH Verified 01/20/24 09:58 venlafaxine [From Effexor] Allergy Intermediate Hives/Itchy Verified 01/20/24 09:58 /Rash Penicillins Allergy Mild Rash Verified 01/20/24 09:58 propoxyphene Allergy Mild Unknown Verified 01/20/24 09:58 Sulfa (Sulfonamide Allergy Mild Rash Verified 01/20/24 09:58 Antibiotics) amlodipine AdvReac Intermediate LEGS AND Verified 01/20/24 09:58 FEET GET TIGHT atorvastatin AdvReac Intermediate Inc Lft Verified 01/20/24 09:58 after Cholecystectomy enalapril AdvReac Intermediate tightness Verified 01/20/24 09:58 in ankles erythromycin base AdvReac Intermediate Vomiting Verified 01/20/24 09:58 fentanyl AdvReac Intermediate SEVERE Verified 01/20/24 09:58 N&V;DIZZY ondansetron [From Zofran] AdvReac Intermediate Nausea Verified 01/20/24 09:58 Quinolones AdvReac Intermediate N&V Verified 01/20/24 09:58 topiramate [From Topamax] AdvReac Intermediate "FINGERS Verified 01/20/24 09:58 NUMB" tramadol [From Ultram] AdvReac Intermediate Vomiting Verified 01/20/24 09:58 clindamycin AdvReac Mild Nausea Verified 01/20/24 09:58 codeine AdvReac Mild SICK TO Verified 01/20/24 09:58 STOMACH metronidazole AdvReac Unknown Unknown Verified 01/20/24 09:58 Home Medications Medication Instructions Recorded Confirmed Type apixaban 2.5 mg tablet (Eliquis) 2.5 mg PO BID 10/14/24 10/14/24 History metoprolol succinate 100 mg 100 mg PO DAILY 10/14/24 10/14/24 History tablet,extended release 24 hr pantoprazole 40 mg tablet,delayed 40 mg PO DAILY 10/14/24 10/14/24 History release rosuvastatin 5 mg tablet 5 mg PO DAILY 10/14/24 10/14/24 History terazosin 1 mg capsule 1 mg PO HS 10/14/24 10/14/24 History Patient History Medical History CKD (chronic kidney disease) stage 3, GFR 30-59 ml/min Prediabetes Hx of renal calculi Pacemaker medtronic- checked remotely once per month- last office check 2-3 mos ago- Dr Prabhu TRISTAN On anticoagulant therapy ELIQUIS DAILY Thoracic aortic aneurysm Mildly dilated on echo 02/2019 per cardiology, but not seen on 08/2019 echo at [facility]. Diverticulosis History of skin cancer Migraines Paroxysmal atrial fibrillation Hypertension Surgical History S/P cardiac pacemaker procedure Hx of colonoscopy History of ERCP with stone removal and stent placement 02/28 [place] History of cystoscopy W/ STONE EXTRACTION History of tooth extraction History of breast biopsy Status post trigger finger release History of Mohs micrographic surgery for skin cancer History of cholecystectomy 02/02/2020; [facility]; MAC #3, ETT 7.0. No complications. Family History Other Coronary heart disease No family history of adverse response to anesthesia Social History Smoking Status: Never smoker Second Hand Exposure: No; Do You Dip or Chew Tobacco: No; Hx Alcohol Use: Yes Alcohol type: hard liquor Hx Substance Use: No Preferred Language: Thai Communication Ability: Effective Visual Impairment: No Limitations Case Management Director Required: No Beliefs That Will Affect Care: None marital status: / Current Living Situation: Alone How many Children do You have: 0 Other Information That Helps Us Care for You: No Feels Safe at Home: Yes Safety Concerns: Feels Safe At This Time Assistive Devices: None Review of Systems Review of Systems: All systems reviewed & are unremarkable except as noted in HPI & below Physical Exam Constitutional: WD/WN, vitals as above Respiratory: normal respiratory effort, lungs clear to auscultation Cardiovascular: Rate/Rhythm: regular rate and regular rhythm Gastrointestinal (Abdomen): RUQ and mid epigastric tenderness to palpation. no guarding, soft, normal bowel sounds. Psychiatric: Orientation: alert and oriented x 3 Affect: euthymic affect Results & Data Vital Signs (Past 12 Hours) Vital Signs Temp Pulse Pulse Resp BP BP Pulse Ox 10/15/24 11:00 97.9 F 111 H 18 124/84 93 10/15/24 09:57 109 H 10/15/24 09:00 125 H 136/107 H 10/15/24 07:47 98.1 F 90 18 125/98 95 10/15/24 03:20 98.4 F 98 H 18 115/75 93 O2 Del Method 10/15/24 11:00 Room Air 10/15/24 09:57 10/15/24 09:00 10/15/24 07:47 Room Air 10/15/24 03:20 Room Air Diagnostic Findings CT abd pelvis wo con CLINICAL HISTORY: abd. pain TECHNIQUE: Helical axial images of the abdomen and pelvis were obtained. Automated dose lowering techniques and/or adjustment according to patient size were utilized for this exam. This exam was performed without intravenous contrast. CT DOSE: 439.57 mGy.cm COMPARISON: Comparison is made to CT abdomen pelvis 09/18/2024 FINDINGS: Lower chest: Peripheral interstitial thickening is seen. Liver: Focal fatty changes are noted about the falciform ligament. Gallbladder and biliary tree: Patient is status post cholecystectomy. No intra- or extrahepatic biliary ductal dilation. Pneumobilia is incidentally noted. Pancreas: Unremarkable, no focal lesions. Spleen: Calcifications are noted in the spleen compatible with prior granulomatous disease. Adrenals: Unremarkable. Kidneys and ureters: Renal cysts are seen. Bladder: Unremarkable. Reproductive organs: Unremarkable. Bowel: Diverticulosis is seen without diverticulitis. The appendix is normal. Lymph nodes Retroperitoneal: Unremarkable. Pelvic: Unremarkable. Mesenteric: Unremarkable. Peritoneum: Normal. Vessels: Atherosclerotic calcifications are seen. Abdominal wall: Unremarkable. Bones: Degenerative changes in the visualized spine. IMPRESSION: 1. No acute abnormalities to explain abdominal pain. 2. Pneumobilia is seen which may represent incompetent sphincter of Oddi. 3. Diverticulosis without diverticulitis. ACT 112: Negative or not required by law. Electronically signed by: Petros Gordon M.D. 10/15/2024 9:45 AM Coding Level of Care Code 33735 INT INP/OBS CARE 2/55MIN Diagnoses Abdominal pain R10.9
[2024-10-15] MEDS: PANTOprazole 40 MG/10 ML SYR IV SCH (11:32)
[2024-10-15 12:27] LABS: Albumin Level 3.9 gm/dl (3.4-5.0); Bilirubin Direct 0.1 mg/dl (0-0.2); Bilirubin,Total 0.3 mg/dl (0.2-1.0); Total Protein 6.2 gm/dl (6.0-8.3)
--- NOTE | 2024-10-15 12:52 | Cardiology Progress Note ---
Date of Service October 15, 2024 Assessment & Plan (1) Atrial fibrillation with rapid ventricular response: (2) Abdominal pain: Plan Patient now with abdominal pain after eating breakfast, that is worse than her prior chest pain. CT of abd/ pelvis without acute findings. Remains in AF, with ventricular rate inthe 110's at rest Has h/o tachy / michael and AF. On Eliqis chronically. Underwent implantation of a dual chamber Medtronic pacemaker in 2019. * agree with protonix * Continue IV amiodarone, TSH, LFTs normal this admission. * add back outpatient oral metoprolol succinate 100 mg daily * Continue Eliquis * plan for cardioversion on 10/16. Patient agreeable. * Per patient request, will called her sister, Lola Park at [phone] and provided updates. NPO after midnight except medications. Admission and Anticipated Discharge Date Admission Date: October 14, 2024 Subjective Patient seen in cardiology consultation. Patient notes band-like epigastric discomfort. No angina at present , but notes sensation of elevated HR. Physical Exam Constitutional: + thin; no acute distress Eyes: PERRL, conjunctivae normal, anicteric sclerae Neck: trachea midline, no thyromegaly Respiratory: normal respiratory effort, lungs clear to auscultation Cardiovascular: Rate/Rhythm: + tachycardic and + irregularly irregular Heart Sounds: no murmur Vessels: no JVD Extremities: no edema Gastrointestinal (Abdomen): Inspection/Auscultation: abdomen not distended and no abdominal edema Percussion/Palpation: + abdomen tender (mild right sided tenderness on palpation) Neurologic: PERRL, EOMI, accommodation nl, no face palsy, no dysarthria Results & Data Vital Signs (Past 12 Hours) Vital Signs Temp Pulse Pulse Resp BP BP Pulse Ox 10/15/24 11:00 36.6 C 111 H 18 124/84 93 10/15/24 09:57 109 H 10/15/24 09:00 125 H 136/107 H 10/15/24 07:47 36.7 C 90 18 125/98 95 10/15/24 03:20 36.9 C 98 H 18 115/75 93 O2 Del Method 10/15/24 11:00 Room Air 10/15/24 09:57 10/15/24 09:00 12/09/24 07:47 Room Air 10/15/24 03:20 Room Air Laboratory Results Cardiac Enzymes 10/14/24 10/15/24 Range/Units 17:12 05:49 AST 14 (13-39) U/L Troponin I High Sens 17.3 H (0-14) pg/ml CBC 10/15/24 Range/Units 05:49 WBC 7.40 (4.8-10.8) K/ul RBC 4.43 (4.20-5.40) M/uL Hgb 13.5 (12.0-16.0) g/dl Hct 41.5 (37.0-47.0) % Plt Count 229 (130-400) K/uL Comprehensive Metabolic Panel 10/15/24 Range/Units 05:49 Sodium 138 (136-145) mmol/L Potassium 4.2 (3.5-5.1) mmol/L Chloride 105 (98-107) mmol/L Carbon Dioxide 28 (21-32) mmol/L BUN 22 (6-23) mg/dl Creatinine 0.96 (0.6-1.2) mg/dl Glucose 117 H (70-99(Fasting)) mg/dl Calcium 8.9 (8.6-10.3) mg/dl Direct Bilirubin 0.1 (0-0.2) mg/dl AST 14 (13-39) U/L ALT 11 (7-52) U/L Alkaline Phosphatase 31 L (34-104) U/L Total Protein 6.2 (6.0-8.3) gm/dl Albumin 3.9 (3.4-5.0) gm/dl Intake and Output 10/14/24 10/15/24 10/15/24 22:59 06:59 14:59 Intake Total 425.925 / 775.212 249.287 / 775.212 57.337 / 57.337 Output Total 150 / 150 Balance 425.925 / 775.212 249.287 / 775.212 -92.663 / -92.663 Intake: IV 185.925 / 485.212 199.287 / 485.212 57.337 / 57.337 Amiodarone / D5w 360 mg In 200 185.925 / 385.212 199.287 / 385.212 57.337 / 57.337 ml @ 0.5 MG/MIN 16.667 mls/hr IV .Q12H MANUELITO Rx#:[id number] Oral 240 / 290 50 / 290 Output: Other 150 / 150 Other: # Unmeasured Voids 2 1 Weight 51.3 kg Weight Measurement Method Standing Scale
[2024-10-15] MEDS: METOPROLOL SUCC 50MG EXT REL TAB PO ONE (13:51)
[2024-10-15] MEDS ORDERED: oxyCODONE HCL IR 5 MG TAB (IMMEDIATE RELEASE) PO PRN (13:54)
[2024-10-15] MEDS: SUCRALFATE 1 GM/10 ML UDC PO SCH (14:57)
[2024-10-16 06:36] LABS: Hemoglobin 13.4 g/dl (12.0-16.0); Mean Corpuscular Hemoglobin 30.7 pg (25.0-34.0); Mean Corpuscular Hgb Conc 33.5 g/dL (32.0-36.0); Mean Corpuscular Volume 91.7 fL (80.0-100.0); Mean Platelet Volume 9.6 fL (9.4-12.4); Platelet Count 232 K/uL (130-400); RDW Coefficient of Variation 12.5 % (11.5-14.5); RDW Standard Deviation 42.2 fL (36.4-46.3); Red Blood Count 4.36 M/uL (4.20-5.40); White Blood Count 8.99 K/ul (4.8-10.8)
[2024-10-16 06:59] LABS: BUN Creatinine Ratio 23.8 (10-20); Calcium 8.5 mg/dl (8.6-10.3); Creatinine Clr Calc Pharmacy 36.7 ml/min; Magnesium 1.9 mg/dl (1.7-2.4); Phosphorus 2.2 mg/dl (2.5-4.9); Potassium 3.8 mmol/L (3.5-5.1)
--- NOTE | 2024-10-16 07:38 | History & Physical Bridge Note ---
Date of Service October 16, 2024 History & Physical Bridge Note I have examined the patient, reviewed the History & Physical and in the interval since the performance of the History & Physical I have noted the following changes of clinical significance: no changes noted. Informed consent for cardioversion obtained. The patient elects to proceed.
--- NOTE | 2024-10-16 07:43 | Anesthesiology Consultation ---
Date of Service October 16, 2024 Assessment & Plan Chart Review Chart Review: Acceptable Risk for Surgery and Patient NOT seen in Pre Admission Testing Consults Requested none ASA ASA4 Proposed Anesthesia Anesthesia Type: MAC Risk / Benefits Reviewed With: PT / POA / Parent / Guardian, Accepts Plan and Informed Consent Obtained History Surgery Operation Date: 10/16/24 07:30 Proposed Procedures p Cardioversion - Jaydon Boudreaux, Height/Weight Height: 5 ft 1 in Weight: 51.4 kg Allergies Allergy/AdvReac Type Severity Reaction Status Date / Time sulfamethoxazole Allergy Intermediate RASH Verified 01/20/24 09:58 trimethoprim Allergy Intermediate RASH Verified 01/20/24 09:58 venlafaxine [From Effexor] Allergy Intermediate Hives/Itchy Verified 01/20/24 09:58 /Rash Penicillins Allergy Mild Rash Verified 01/20/24 09:58 propoxyphene Allergy Mild Unknown Verified 01/20/24 09:58 Sulfa (Sulfonamide Allergy Mild Rash Verified 01/20/24 09:58 Antibiotics) amlodipine AdvReac Intermediate LEGS AND Verified 01/20/24 09:58 FEET GET TIGHT atorvastatin AdvReac Intermediate Inc Lft Verified 01/20/24 09:58 after Cholecystectomy enalapril AdvReac Intermediate tightness Verified 01/20/24 09:58 in ankles erythromycin base AdvReac Intermediate Vomiting Verified 01/20/24 09:58 fentanyl AdvReac Intermediate SEVERE Verified 01/20/24 09:58 N&V;DIZZY ondansetron [From Zofran] AdvReac Intermediate Nausea Verified 01/20/24 09:58 Quinolones AdvReac Intermediate N&V Verified 01/20/24 09:58 topiramate [From Topamax] AdvReac Intermediate "FINGERS Verified 01/20/24 09:58 NUMB" tramadol [From Ultram] AdvReac Intermediate Vomiting Verified 01/20/24 09:58 clindamycin AdvReac Mild Nausea Verified 01/20/24 09:58 codeine AdvReac Mild SICK TO Verified 01/20/24 09:58 STOMACH metronidazole AdvReac Unknown Unknown Verified 01/20/24 09:58 Medications Home Medications Medication Instructions Recorded Confirmed Last Taken apixaban 2.5 mg tablet (Eliquis) 2.5 mg PO BID 10/14/24 10/14/24 Unknown metoprolol succinate 100 mg 100 mg PO DAILY 10/14/24 10/14/24 Unknown tablet,extended release 24 hr pantoprazole 40 mg tablet,delayed 40 mg PO DAILY 10/14/24 10/14/24 Unknown release rosuvastatin 5 mg tablet 5 mg PO DAILY 10/14/24 10/14/24 Unknown terazosin 1 mg capsule 1 mg PO HS 10/14/24 10/14/24 Unknown Active Medications Generic Name Dose Route Start Last Admin Trade Name Freq PRN Reason Stop Dose Admin Acetaminophen 650 mg 10/14/24 02:38 10/16/24 04:05 Acetaminophen 325 Mg Tab PO 11/13/24 02:37 650 mg Q4H PRN Administration Pain or Fever Apixaban 2.5 mg 10/14/24 09:00 10/15/24 20:42 Apixaban 2.5 Mg Tab PO 11/13/24 08:59 2.5 mg BID MANUELITO Administration Dicyclomine HCl 10 mg 10/15/24 14:00 10/15/24 10:57 Dicyclomine Hcl 10 Mg Cap PO 11/14/24 13:59 10 mg BID PRN Administration abd. pain Famotidine 20 mg in 5 mls @ 2.5 mls/min 10/14/24 09:00 10/15/24 08:32 Pepcid 20mg Iv Push IV 11/13/24 08:59 2.5 mls/min DAILY MANUELITO Administration Amiodarone HCl/Dextrose 360 mg in 200 mls @ 16.667 mls/hr 10/14/24 16:00 10/16/24 03:45 Nexterone / D5w IV 11/13/24 15:59 0.5 mg/min .Q12H MANUELITO 16.7 mls/hr Administration 0.5 MG/MIN Pantoprazole Sodium 40 mg in 10 mls @ 5 mls/min 10/15/24 11:00 10/15/24 20:42 Protonix IV 11/14/24 10:59 5 mls/min BID MANUELITO Administration Metoprolol Succinate 100 mg 10/14/24 09:00 10/14/24 07:38 Metoprolol Succ 50mg Ext Rel Tab PO 11/13/24 08:59 100 mg DAILY MANUELITO Administration Metoprolol Tartrate 5 mg 10/14/24 02:38 10/15/24 09:00 Metoprolol Tartrate 1 Mg/Ml Vial IV 11/13/24 02:37 5 mg Q6 PRN Administration Tachycardia Pantoprazole Sodium 40 mg 10/14/24 09:00 10/15/24 08:29 Pantoprazole 40 Mg Tab PO 11/13/24 08:59 40 mg DAILY MANUELITO Administration Rosuvastatin Calcium 5 mg 10/14/24 09:00 10/15/24 08:29 Rosuvastatin Calcium 5 Mg Tab PO 11/13/24 08:59 5 mg DAILY MANUELITO Administration Sucralfate 1 gm 10/15/24 13:55 10/15/24 20:42 Sucralfate 1 Gm/10 Ml Udc PO 11/14/24 13:54 1 gm QID MANUELITO Administration Sumatriptan Succinate 100 mg 10/14/24 18:02 10/14/24 18:37 Sumatriptan Succinate 100 Mg Tab PO 11/13/24 18:01 100 mg DAILY PRN Administration Migraine Headache Past Medical History Medical History CKD (chronic kidney disease) stage 3, GFR 30-59 ml/min Prediabetes Hx of renal calculi Pacemaker medtronic- checked remotely once per month- last office check 2-3 mos ago- Dr Prabhu TRISTAN On anticoagulant therapy ELIQUIS DAILY Thoracic aortic aneurysm Mildly dilated on echo 02/2019 per cardiology, but not seen on 08/2019 echo at [facility]. Diverticulosis History of skin cancer Migraines Paroxysmal atrial fibrillation Hypertension Exercise / Class Metabolic Activity II 4-5 Yardwork/Stairs/Walk up hill Past Family History Family History Other Coronary heart disease No family history of adverse response to anesthesia Past Surgical History Surgical History S/P cardiac pacemaker procedure Hx of colonoscopy History of ERCP with stone removal and stent placement 02[place] History of cystoscopy W/ STONE EXTRACTION History of tooth extraction History of breast biopsy Status post trigger finger release History of Mohs micrographic surgery for skin cancer History of cholecystectomy 02/02/2020; [facility]; MAC #3, ETT 7.0. No complications. Past Anesthesia History No Hx of Anesthesia Complications and No Family Hx of Anesthesia Complications History of PONV No Hx of PONV and No Hx of Motion Sickness Social History Smoking Status: Never smoker Do You Dip or Chew Tobacco: No Hx Alcohol Use: Yes Alcohol type: hard liquor alcohol intake frequency: holidays/special occasions only Hx Substance Use: No substance use type: does not use Physical Exam Vital Signs Last Vital Signs Temp 36.5 C 10/16/24 04:01 Pulse 103 H 10/16/24 07:15 Resp 14 10/16/24 07:15 BP 131/100 10/16/24 07:15 Pulse Ox 96 10/16/24 07:15 O2 Del Method Room Air 10/16/24 07:15 ENMT Mouth: no dentition abnormality Thyromental Distance: > or= 3.5 Finger Breadths Mallampati Class: II Neck normal visual inspection Respiratory normal respiratory effort Auscultation: lungs clear to auscultation bilaterally Cardiovascular Rate/Rhythm: + tachycardic; + abnormal rhythm (afib on monitor) Chest (Breasts) Chest: + pacemaker Psychiatric Orientation: alert Testing Laboratory Results 10/16/24 05:46 10/16/24 05:46 PT 11.5 Seconds (9.0-12.0) 10/13/24 21:36 INR 1.1 (0.9-1.1) 10/13/24 21:36 Urine Color Yellow 10/13/24 23:01 Urine Appearance Clear (Clear) 10/13/24 23:01 Urine pH 6.5 (4.5-7.5) 10/13/24 23:01 Ur Specific [place] 1.009 (1.000-1.030) 10/13/24 23:01 Urine Protein Negative (Negative) 10/13/24 23:01 Urine Glucose (UA) Negative (Negative) 10/13/24 23:01 Urine Ketones Negative (Negative) 10/13/24 23:01 Urine Nitrite Negative (Negative) 10/13/24 23:01 Ur Leukocyte Esterase Trace (Negative) H 10/13/24 23:01 Urine WBC (Auto) 0-5 /hpf (0-5) 10/13/24 23:01 Urine RBC (Auto) 0-2 /hpf (0-2) 10/13/24 23:01 U Hyaline Cast (Auto) 0-2 /lpf (0-2) 12/07/24 23:01 U Epithel Cells (Auto) 0-2 /hpf (0-2) 10/13/24 23:01 Urine Bacteria (Auto) None Seen (None Seen) 10/13/24 23:01
--- NOTE | 2024-10-16 07:54 | Cardioversion ---
Date of Service October 16, 2024 Electrical Cardioversion Rpt Electrical Cardioversion Report Procedure Preprocedure diagnosis: Symptomatic persistent atrial fibrillation Postprocedure diagnosis: Successful conversion to sinus rhythm Direct-current cardioversion procedure note: The patient's vital signs were monitored via the standard fashion. After informed consent was obtained and timeout was performed the patient was sedated with the assistance of the anesthesia service receiving a total of 40 mg of IV propofol. The patient then underwent direct-current cardioversion receiving a single dose of 150 J of synchronized biphasic energy with successful conversion to sinus rhythm. Plan: Continue Eliquis 2.5 mg twice daily next dose due at just after 8 AM to keep with her previous time schedule, metoprolol succinate 100 mg p.o. daily, continue IV amiodarone for now with plans to transition her to oral amiodarone today. Glass Technician/Installer Jaydon Boudreaux DO Childcare Provider none Estimated Blood Loss 0 Findings Consistent with Post-Op Diagnosis as noted above Specimens Specimen Description: none Anesthesia Type MAC Complications No complications were immediately apparent.
[2024-10-16] MEDS ORDERED: POTASSIUM PHOS 3 MMOL/1 ML INFUSION IV STA (08:13)
--- NOTE | 2024-10-16 08:13 | Anesthesiology Progress Note ---
Date of Service October 16, 2024 Anesthesia Post Procedure Vital Signs Vital Signs: Temp Pulse Pulse Resp BP BP BP 10/16/24 08:00 63 14 114/69 10/16/24 07:15 103 H 14 131/100 10/16/24 04:01 36.5 C 103 H 16 106/78 10/15/24 23:07 36.6 C 103 H 16 137/81 10/15/24 21:46 102 H 10/15/24 20:21 36.8 C 101 H 18 135/78 10/15/24 15:49 36.5 C 116 H 17 137/99 10/15/24 13:01 94 H 10/15/24 11:00 36.6 C 111 H 18 124/84 10/15/24 09:57 109 H 10/15/24 09:00 125 H 136/107 H Pulse Ox O2 Del Method 10/16/24 08:00 94 Room Air 10/16/24 07:15 96 Room Air 10/16/24 04:01 94 Room Air 10/15/24 23:07 92 Room Air 10/15/24 21:46 10/15/24 20:21 93 Room Air 10/15/24 15:49 95 Room Air 10/15/24 13:01 10/15/24 11:00 93 Room Air 10/15/24 09:57 10/15/24 09:00 Pain Intensity Chest: Pain Intensity: 6 Back: Pain Intensity: 7 Transfer of Care Handoff Completed per policy Notes Mental Status: alert / awake / arousable Patient Amnestic to Procedure: Yes Nausea / Vomiting: adequately controlled Pain: adequately controlled Airway Patency, RR, SpO2: stable & adequate BP & HR: stable & adequate Hydration State: stable & adequate Anesthetic Complications: no major complications apparent
--- NOTE | 2024-10-16 08:16 | Hospitalist Progress Note ---
Date of Service October 16, 2024 Assessment & Plan (1) Atrial fibrillation with rapid ventricular response: Plan: 89-year-old female with past medical history significant for hyperlipidemia, prediabetes, enlarged thoracic aorta, paroxysmal atrial fibrillation, tachybradycardia syndrome status post pacemaker, hypertension, Raynaud's phenomenon, gastroparesis, GERD, CKD stage III, right kidney stone, lumbar degenerative disc disease, senile osteoporosis, restless leg syndrome, chronic migraine, history of colonic diverticulitis presents with palpitations and chest discomfort. Seems around 4 PM p.m. when she was in concert she noticed palpitations. She went home and rested but they were not going away so she came to the ER. She also complaining of pain in her lower chest and epigastric region. Has some epigastric tenderness. Denies any nausea. No sweating. No shortness of breath. No headache or dizziness. No runny nose or sore throat. No fevers. Appetite is okay. Normal bowel and bladder movements. A-fib with rapid ventricular response Received 2 dose of IV Lopressor 5 mg in the ER which did not improve and was started on Cardizem drip Continue home metoprolol succinate and Eliquis Close monitoring telemetry echo obtained Consulted cardiology - started on amiodarone, pt is now s/p cardioversion (10/16/24) and in sinus rhythm Chest pain Also some epigastric tenderness EKG no acute findings Initial troponin unremarkable follow serial enzymes and echo, cardiology following as above Closely monitor on telemetry Epigastric tenderness iv pepcid, IV PPI bentyl carafate CT abdomen/pelvis - 1. No acute abnormalities to explain abdominal pain. 2. Pneumobilia is seen which may represent incompetent sphincter of Oddi. 3. Diverticulosis without diverticulitis. GI consulted and discussed with - cont. medical management as above, also will add senna for poss. constipation Tachybradycardia syndrome Status post pacemaker Prediabetes Will follow HbA1c levels History of CKD stage III Will follow labs Hypertension cardiac meds, as above GERD On Protonix DVT prophylaxis On Eliquis. Disposition Telemetry Full code. Admission and Anticipated Discharge Date Admission Date: October 14, 2024 Subjective Pt seen in follow up of Afib w/ RVR Pt also complained of epigastric abd. pain, initially resolved with bentyl - pt states she has been on bentyl for about 6 months, also reports to have recent abd. US done which was unremarkable. Does not recall eval by GI Abd. pain recurred - CT abd. pain obtained, and GI consulted, in addition to med. management (IV PPI, bentyl, carafate) She is currently s/p cardioversion w/ cardiology this AM (10/16/24) Abd. pain seems improved but she did not eat yet today, also discussed w/ GI at the bedside - some concern poss. constipation, will start senna as well Currently on IV amio per cardiology - possibly to transition to po amio this PM Pt's sister Lola also present at the bedside and updated Review of Systems Review of Systems: All systems reviewed & are unremarkable except as noted in Subjective Physical Exam Physical Exam: General- slim elderly F in NAD Head- atraumatic Eyes- PERRL. Neck- supple Lungs- clear to auscultation no wheezing or crackles Heart- rrr,no murmur, no gallop. Abdomen- normal bowel sounds, soft, minimally tender around epigastrium, no distension. Extremities- no pretibial edema, no erythema seen Neuro- alert, oriented ; PERRL, no facial palsy; no dysarthria; moves extremities Results & Data Results & Data Vital Signs (Past 12 Hours) Vital Signs Temp Pulse Pulse Resp BP BP Pulse Ox 10/16/24 08:00 63 14 114/69 94 10/16/24 07:15 103 H 14 131/100 96 10/16/24 04:01 36.5 C 103 H 16 106/78 94 10/15/24 23:07 36.6 C 103 H 16 137/81 92 10/15/24 21:46 102 H 10/15/24 20:21 36.8 C 101 H 18 135/78 93 O2 Del Method 10/16/24 08:00 Room Air 10/16/24 07:15 Room Air 10/16/24 04:01 Room Air 10/15/24 23:07 Room Air 10/15/24 21:46 10/15/24 20:21 Room Air Laboratory Results 10/16/24 10/15/24 Range/Units 05:46 05:49 WBC 8.99 (4.8-10.8) K/ul RBC 4.36 (4.20-5.40) M/uL Hgb 13.4 (12.0-16.0) g/dl Hct 40.0 (37.0-47.0) % MCV 91.7 (80.0-100.0) fL MCH 30.7 (25.0-34.0) pg MCHC 33.5 (32.0-36.0) g/dL RDW Std Deviation 42.2 (36.4-46.3) fL RDW Coeff of Ling 12.5 (11.5-14.5) % Plt Count 232 (130-400) K/uL MPV 9.6 (9.4-12.4) fL Sodium 138 (136-145) mmol/L Potassium 3.8 (3.5-5.1) mmol/L Chloride 105 (98-107) mmol/L Carbon Dioxide 24 (21-32) mmol/L Anion Gap 9 (3-11) BUN 19 (6-23) mg/dl Creatinine 0.80 (0.6-1.2) mg/dl Est Cr Clr Drug Dosing 36.7 ml/min eGFR 70.83 BUN/Creatinine Ratio 23.8 H (10-20) Glucose 115 H (70-99(Fasting)) mg/dl Calcium 8.5 L (8.6-10.3) mg/dl Phosphorus 2.2 L (2.5-4.9) mg/dl Magnesium 1.9 (1.7-2.4) mg/dl Total Bilirubin 0.3 (0.2-1.0) mg/dl Direct Bilirubin 0.1 (0-0.2) mg/dl AST 14 (13-39) U/L ALT 11 (7-52) U/L Alkaline Phosphatase 31 L (34-104) U/L Total Protein 6.2 (6.0-8.3) gm/dl Albumin 3.9 (3.4-5.0) gm/dl Lipase 17 (11-82) U/L Medications Administered Current Inpatient Medications Acetaminophen (Acetaminophen 325 Mg Tab) 650 mg PO Q4H PRN PRN Reason: Pain or Fever Stop: 11/13/24 02:37 Last Admin: 10/16/24 04:05 Dose: 650 mg Amiodarone HCl (Amiodarone 200 Mg Tab) 200 mg PO BIDM [facility] Stop: 11/15/24 07:59 Apixaban (Apixaban 2.5 Mg Tab) 2.5 mg PO BID MAN[place]ELITO Stop: 11/13/24 08:59 Last Admin: 10/15/24 20:42 Dose: 2.5 mg Dicyclomine HCl (Dicyclomine Hcl 10 Mg Cap) 10 mg PO BID PRN PRN Reason: abd. pain Stop: 11/14/24 13:59 Last Admin: 10/15/24 10:57 Dose: 10 mg Famotidine (Pepcid 20mg Iv Push) 20 mg in 5 mls @ 2.5 mls/min IV DAILY MANUELITO Stop: 11/13/24 08:59 Last Admin: 10/15/24 08:32 Dose: 2.5 mls/min Amiodarone HCl/Dextrose (Nexterone / D5w) 360 mg in 200 mls @ 16.667 mls/hr IV .Q12H MANUELITO Stop: 11/13/24 15:59 Last Admin: 10/16/24 03:45 Dose: 0.5 mg/min, 16.7 mls/hr Pantoprazole Sodium (Protonix) 40 mg in 10 mls @ 5 mls/min IV BID MANUELITO Stop: 11/14/24 10:59 Last Admin: 10/15/24 20:42 Dose: 5 mls/min Metoprolol Succinate (Metoprolol Succ 50mg Ext Rel Tab) 100 mg PO DAILY MANUELITO Stop: 11/13/24 08:59 Last Admin: 10/14/24 07:38 Dose: 100 mg Metoprolol Tartrate (Metoprolol Tartrate 1 Mg/Ml Vial) 5 mg IV Q6 PRN PRN Reason: Tachycardia Stop: 11/13/24 02:37 Last Admin: 10/15/24 09:00 Dose: 5 mg Nitroglycerin (Nitroglycerin Sl 0.4 Mg/Tab Tab) 0.4 mg SL Q5M PRN PRN Reason: Chest Pain Stop: 11/13/24 02:37 Oxycodone HCl (Oxycodone Hcl Ir 5 Mg Tab (Immediate Release)) 5 mg PO QID PRN PRN Reason: Pain Stop: 10/29/24 13:53 Pantoprazole Sodium (Pantoprazole 40 Mg Tab) 40 mg PO DAILY MANUELITO Stop: 11/13/24 08:59 Last Admin: 10/15/24 08:29 Dose: 40 mg Polyethylene Glycol (Polyethylene (Miralax) 17 Gm Pack) 17 gm PO DAILY PRN PRN Reason: Constipation Stop: 11/13/24 02:37 Potassium Phosphate (Potassium Phos 3 Mmol/1 Ml Infusion) 9 mmol IV NOW STA Stop: 10/16/24 08:14 Rosuvastatin Calcium (Rosuvastatin Calcium 5 Mg Tab) 5 mg PO DAILY MANUELITO Stop: 11/13/24 08:59 Last Admin: 10/15/24 08:29 Dose: 5 mg Sucralfate (Sucralfate 1 Gm/10 Ml Udc) 1 gm PO QID MANUELITO Stop: 11/14/24 13:54 Last Admin: 10/15/24 20:42 Dose: 1 gm Sumatriptan Succinate (Sumatriptan Succinate 100 Mg Tab) 100 mg PO DAILY PRN PRN Reason: Migraine Headache Stop: 11/13/24 18:01 Last Admin: 10/14/24 18:37 Dose: 100 mg Terazosin HCl (Terazosin Hcl 1 Mg Cap) 1 mg PO HS [facility] Stop: 11/13/24 20:59
--- NOTE | 2024-10-16 08:37 | Electrocardiogram Report ---
Test Reason : Blood Pressure : */* mmHG Vent. Rate : 103 BPM Atrial Rate : 267 BPM P-R Int : * ms QRS Dur : 86 ms QT Int : 380 ms P-R-T Axes : * -14 -27 degrees QTcB Int : 497 ms Atrial fibrillation with rapid ventricular response with occasional ventricular-paced complexes Nonspecific ST abnormality Abnormal ECG When compared with ECG of 15-Oct-2024 08:44, Electronic ventricular pacemaker now present Confirmed by Adama Jacome ([id number]) on 10/16/2024 8:36:41 AM Referred By: REFERRED SELF Confirmed By: Adama Jacome
[2024-10-16] MEDS: POT PHOSPHATE MONOBASIC W/ SOD TAB PO SCH (09:20)
[2024-10-16] MEDS: AMIODARONE 200 MG TAB PO SCH (09:21)
--- NOTE | 2024-10-16 09:31 | Gastroenterology Progress Note ---
Date of Service October 16, 2024 Assessment & Plan (1) Abdominal pain: Plan: Patient has seen improvement in her symptoms. Pain has moved from RUQ to LUQ which suggests to me that some of the pain may be secondary to some constipation. She did also see benefit with increased PPI dose/carafate/h2 jolene suggesting that there may also be a component of gastritis. - we discussed EGD, but patient wishes to hold off on any endoscopic work up at this time since starting to feel better. - okay to advance diet from a GI standpoint and see how she tolerates this. - discussed case with Dr. Prabhakar. she is going to start a stool softener for possible constipation component. - continue with protonix 40mg IV BID. - continue with famotidine 20 daily. - continue with carafate 1 gm qid. - further recommendations to follow, see MD steen. Admission and Anticipated Discharge Date Admission Date: October 14, 2024 Supervising Physician Co-Signing Physician Notes I examined the patient and reviewed patient's chart , laboratory data and imaging studies. I agree with with assessment and plan of care as suggested by advanced practice provider. Patient initially felt better earlier today but now is complaining of recurrent upper abdominal pain. She is now willing to undergo upper endoscopy. Schedule EGD tomorrow. Subjective Patient tells me that her abdominal pain does seem to be better today. she does feel like pain has moved to her LUQ. she feels carafate was helpful with symptoms as well as increasing the PPI. no bowel movements since admission. no nausea, vomiting. Review of Systems Review of Systems: All systems reviewed & are unremarkable except as noted in HPI & below Physical Exam Constitutional: WD/WN, vitals as above Respiratory: normal respiratory effort, lungs clear to auscultation Cardiovascular: Rate/Rhythm: regular rate and regular rhythm Gastrointestinal (Abdomen): LUQ tenderness, soft, no guarding, normal bowel sounds. Psychiatric: Orientation: alert and oriented x 3 Affect: euthymic affect Results & Data Results & Data Vital Signs (Past 12 Hours) Vital Signs Temp Pulse Pulse Resp BP BP Pulse Ox 10/16/24 08:48 98.2 F 80 18 160/85 H 95 10/16/24 08:18 97.5 F L 85 20 160/85 H 92 10/16/24 08:15 62 14 121/79 94 10/16/24 08:00 63 14 114/69 94 10/16/24 07:15 103 H 14 131/100 96 10/16/24 04:01 97.7 F 103 H 16 106/78 94 10/15/24 23:07 97.9 F 103 H 16 137/81 92 10/15/24 21:46 102 H O2 Del Method 10/16/24 08:48 Room Air 10/16/24 08:18 Room Air 10/16/24 08:15 Room Air 10/16/24 08:00 Room Air 10/16/24 07:15 Room Air 10/16/24 04:01 Room Air 10/15/24 23:07 Room Air 10/15/24 21:46 Coding Level of Care Code 02423 SUB INP/OBS CARE 2/35MIN Diagnoses Abdominal pain R10.9
[2024-10-16] MEDS: SENNA 8.6 MG TAB PO SCH (10:44)
--- NOTE | 2024-10-16 12:29 | Communication Note ---
Date of Service: October 16, 2024 Post cardioversion EKG performed 10/16/2024 at 10 AM reveals sinus rhythm with atrial paced rhythm, [place] QRS complexes. The corrected QT is mildly prolonged at 492 ms but acceptable. Will discontinue IV amiodarone. Patient states she feels well at present, no chest pain, no abdominal pain. Stable from a cardiac perspective for discharge on her current medications if no other noncardiac workup planned.
--- NOTE | 2024-10-16 13:48 | Electrocardiogram Report ---
Test Reason : Blood Pressure : */* mmHG Vent. Rate : 66 BPM Atrial Rate : 66 BPM P-R Int : 254 ms QRS Dur : 92 ms QT Int : 470 ms P-R-T Axes : 66 -9 25 degrees QTcB Int : 492 ms Atrial-paced rhythm with prolonged AV conduction Prolonged QT Abnormal ECG When compared with ECG of 16-Oct-2024 06:11, Electronic atrial pacemaker has replaced Electronic ventricular pacemaker Vent. rate has decreased by 37 bpm Confirmed by Adama Jacome ([id number]) on 10/16/2024 1:47:56 PM Referred By: REFERRED SELF Confirmed By: Adama Jacome
[2024-10-16] MEDS ORDERED: SIMETHICONE (ENDO) IR PRN (17:00)
[2024-10-17 02:52] VITALS: TEMP 97.9
[2024-10-17 06:57] LABS: Hematocrit (blood only) 38.3 % (37.0-47.0); Hemoglobin 12.8 g/dl (12.0-16.0); Mean Corpuscular Hemoglobin 30.8 pg (25.0-34.0); Mean Corpuscular Hgb Conc 33.4 g/dL (32.0-36.0); Mean Corpuscular Volume 92.3 fL (80.0-100.0); Mean Platelet Volume 9.4 fL (9.4-12.4); Platelet Count 208 K/uL (130-400); RDW Coefficient of Variation 12.5 % (11.5-14.5); RDW Standard Deviation 42.3 fL (36.4-46.3); Red Blood Count 4.15 M/uL (4.20-5.40); White Blood Count 7.79 K/ul (4.8-10.8)
[2024-10-17 07:23] LABS: Estimated Average Glucose 120 mg/dl; Hemoglobin A1C 5.8 % (4.5-5.6)
[2024-10-17 07:30] LABS: BUN Creatinine Ratio 23.9 (10-20); Calcium 8.4 mg/dl (8.6-10.3); Creatinine Clr Calc Pharmacy 41.3 ml/min; Phosphorus 2.8 mg/dl (2.5-4.9); Potassium 3.5 mmol/L (3.5-5.1)
--- NOTE | 2024-10-17 08:18 | Electrocardiogram Report ---
Test Reason : Blood Pressure : */* mmHG Vent. Rate : 84 BPM Atrial Rate : 144 BPM P-R Int : 270 ms QRS Dur : 92 ms QT Int : 440 ms P-R-T Axes : * -16 0 degrees QTcB Int : 519 ms Atrial-paced rhythm with prolonged AV conduction Prolonged QT Abnormal ECG When compared with ECG of 16-Oct-2024 10:00, No significant change Confirmed by Adama Jacome ([id number]) on 10/17/2024 8:18:12 AM Referred By: REFERRED SELF Confirmed By: Adama Jacome
--- NOTE | 2024-10-17 09:21 | Cardiology Progress Note ---
Date of Service October 17, 2024 Assessment & Plan (1) Atrial fibrillation with rapid ventricular response: (2) Abdominal pain: Plan * TSH, LFTs normal this admission. * EKG am of 10/17/24 interpreted independently: SR , atrial pacing at 84 bpm, QTc slightly longer today at 519 ms, however in setting of pacemaker acceptable at present * Would avoid further medications that would prolong the QT in addition to the amiodarone * Continue outpatient oral metoprolol succinate 100 mg daily * Amiodarone 200 mg BID. * Abdominal pain was present before the amiodarone was started. * Doubt abdominal pain is due to a cardioembolic event as she has been on anticoagulation * Continue Eliquis * Stable from cardiac perspective. Stable for EGD. Unable to hold Eliquis given recent cardioversion. Admission and Anticipated Discharge Date Admission Date: October 14, 2024 Subjective Patient with recurrent bandlike epigastric discomfort with meals yesterday. NPO this am. Remains in SR , atrial pacing in 80s this am since cardioversion on 10/16/24. Physical Exam Constitutional: + thin; no acute distress Eyes: PERRL, conjunctivae normal, anicteric sclerae Neck: trachea midline, no thyromegaly Respiratory: normal respiratory effort, lungs clear to auscultation Cardiovascular: Rate/Rhythm: regular rate and regular rhythm Heart Sounds: no murmur Vessels: no JVD Extremities: no edema Gastrointestinal (Abdomen): Inspection/Auscultation: abdomen not distended and no abdominal edema Percussion/Palpation: + abdomen tender (mild right sided tenderness on palpation) Neurologic: PERRL, EOMI, accommodation nl, no face palsy, no dysarthria Results & Data Vital Signs (Past 12 Hours) Vital Signs Temp Pulse Resp BP Pulse Ox O2 Del Method 10/17/24 07:35 36.6 C 78 18 136/83 97 Room Air 10/17/24 02:52 36.6 C 77 18 140/83 95 Room Air 10/16/24 22:44 36.5 C 80 18 134/72 97 Room Air
--- NOTE | 2024-10-17 09:29 | History & Physical Bridge Note ---
Date of Service October 17, 2024 History & Physical Bridge Note I have examined the patient, reviewed the History & Physical and in the interval since the performance of the History & Physical I have noted the following changes of clinical significance: no changes noted. Patient had some more abdominal pain yesterday. she tells me that she has no pain now. no nausea, vomiting, heartburn, chest pain, or sob. - will plan for EGD for today to evaluate abdominal pain. Supervising Physician Co-Signing Physician Notes I examined the patient and reviewed patient's chart , laboratory data and imaging studies. I agree with with assessment and plan of care as suggested by advanced practice provider
--- NOTE | 2024-10-17 10:58 | Anesthesiology Consultation ---
Date of Service October 17, 2024 Assessment & Plan Chart Review Chart Review: Acceptable Risk for Surgery Consults Requested none ASA ASA3 Proposed Anesthesia Anesthesia Type: MAC Risk / Benefits Reviewed With: PT / POA / Parent / Guardian, Accepts Plan and Informed Consent Obtained History Surgery Operation Date: 10/16/24 07:30 Proposed Procedures p Cardioversion - Jaydon Boudreaux DO Operation Date: 10/17/24 16:30 Proposed Procedures p Esophagogastroduodenoscopy William - Rayray Thomas MD Height/Weight Height: 5 ft 1 in Weight: 51.2 kg Allergies Allergy/AdvReac Type Severity Reaction Status Date / Time sulfamethoxazole Allergy Intermediate RASH Verified 01/20/24 09:58 trimethoprim Allergy Intermediate RASH Verified 01/20/24 09:58 venlafaxine [From Effexor] Allergy Intermediate Hives/Itchy Verified 01/20/24 09:58 /Rash Penicillins Allergy Mild Rash Verified 01/20/24 09:58 propoxyphene Allergy Mild Unknown Verified 01/20/24 09:58 Sulfa (Sulfonamide Allergy Mild Rash Verified 01/20/24 09:58 Antibiotics) amlodipine AdvReac Intermediate LEGS AND Verified 01/20/24 09:58 FEET GET TIGHT atorvastatin AdvReac Intermediate Inc Lft Verified 01/20/24 09:58 after Cholecystectomy enalapril AdvReac Intermediate tightness Verified 01/20/24 09:58 in ankles erythromycin base AdvReac Intermediate Vomiting Verified 01/20/24 09:58 fentanyl AdvReac Intermediate SEVERE Verified 01/20/24 09:58 N&V;DIZZY ondansetron [From Zofran] AdvReac Intermediate Nausea Verified 01/20/24 09:58 Quinolones AdvReac Intermediate N&V Verified 01/20/24 09:58 topiramate [From Topamax] AdvReac Intermediate "FINGERS Verified 01/20/24 09:58 NUMB" tramadol [From Ultram] AdvReac Intermediate Vomiting Verified 01/20/24 09:58 clindamycin AdvReac Mild Nausea Verified 01/20/24 09:58 codeine AdvReac Mild SICK TO Verified 01/20/24 09:58 STOMACH metronidazole AdvReac Unknown Unknown Verified 01/20/24 09:58 Medications Home Medications Medication Instructions Recorded Confirmed Last Taken apixaban 2.5 mg tablet (Eliquis) 2.5 mg PO BID 10/14/24 10/14/24 Unknown metoprolol succinate 100 mg 100 mg PO DAILY 10/14/24 10/14/24 Unknown tablet,extended release 24 hr pantoprazole 40 mg tablet,delayed 40 mg PO DAILY 10/14/24 10/14/24 Unknown release rosuvastatin 5 mg tablet 5 mg PO DAILY 10/14/24 10/14/24 Unknown terazosin 1 mg capsule 1 mg PO HS 10/14/24 10/14/24 Unknown Active Medications Generic Name Dose Route Start Last Admin Trade Name Freq PRN Reason Stop Dose Admin Acetaminophen 650 mg 10/14/24 02:38 10/16/24 20:28 Acetaminophen 325 Mg Tab PO 11/13/24 02:37 650 mg Q4H PRN Administration Pain or Fever Amiodarone HCl 200 mg 10/16/24 08:00 10/17/24 08:57 Amiodarone 200 Mg Tab PO 11/15/24 07:59 200 mg BIDM MANUELITO Administration Apixaban 2.5 mg 10/14/24 09:00 10/17/24 08:58 Apixaban 2.5 Mg Tab PO 11/13/24 08:59 2.5 mg BID MANUELITO Administration Dicyclomine HCl 10 mg 10/15/24 14:00 10/17/24 08:57 Dicyclomine Hcl 10 Mg Cap PO 11/14/24 13:59 10 mg BID PRN Administration abd. pain Famotidine 20 mg in 5 mls @ 2.5 mls/min 10/14/24 09:00 10/17/24 09:00 Pepcid 20mg Iv Push IV 11/13/24 08:59 2.5 mls/min DAILY MANUELITO Administration Pantoprazole Sodium 40 mg in 10 mls @ 5 mls/min 10/15/24 11:00 10/17/24 09:00 Protonix IV 11/14/24 10:59 5 mls/min BID MANUELITO Administration Metoprolol Succinate 100 mg 10/14/24 09:00 10/17/24 08:57 Metoprolol Succ 50mg Ext Rel Tab PO 11/13/24 08:59 100 mg DAILY MANUELITO Administration Metoprolol Tartrate 5 mg 10/14/24 02:38 10/15/24 09:00 Metoprolol Tartrate 1 Mg/Ml Vial IV 11/13/24 02:37 5 mg Q6 PRN Administration Tachycardia Rosuvastatin Calcium 5 mg 10/14/24 09:00 10/17/24 08:58 Rosuvastatin Calcium 5 Mg Tab PO 11/13/24 08:59 5 mg DAILY MANUELITO Administration Sennosides 8.6 mg 10/16/24 10:00 10/17/24 09:01 Senna 8.6 Mg Tab PO 11/15/24 09:59 Not Given QAM MANUELITO Sucralfate 1 gm 10/15/24 13:55 10/17/24 08:58 Sucralfate 1 Gm/10 Ml Udc PO 11/14/24 13:54 1 gm QID MANUELITO Administration Sumatriptan Succinate 100 mg 10/14/24 18:02 10/14/24 18:37 Sumatriptan Succinate 100 Mg Tab PO 11/13/24 18:01 100 mg DAILY PRN Administration Migraine Headache Past Medical History Medical History CKD (chronic kidney disease) stage 3, GFR 30-59 ml/min Prediabetes Hx of renal calculi Pacemaker medtronic- checked remotely once per month- last office check 2-3 mos ago- Dr Prabhu TRISTAN On anticoagulant therapy ELIQUIS DAILY Thoracic aortic aneurysm Mildly dilated on echo 02/2019 per cardiology, but not seen on 08/2019 echo at [facility]. Diverticulosis History of skin cancer Migraines Paroxysmal atrial fibrillation Hypertension Exercise / Class Metabolic Activity II 4-5 Yardwork/Stairs/Walk up hill Past Family History Family History Other Coronary heart disease No family history of adverse response to anesthesia Past Surgical History Surgical History S/P cardiac pacemaker procedure Hx of colonoscopy History of ERCP with stone removal and stent placement 02/28 [place] History of cystoscopy W/ STONE EXTRACTION History of tooth extraction History of breast biopsy Status post trigger finger release History of Mohs micrographic surgery for skin cancer History of cholecystectomy 02/02/2020; [facility]; MAC #3, ETT 7.0. No complications. Past Anesthesia History No Hx of Anesthesia Complications Social History Smoking Status: Never smoker Do You Dip or Chew Tobacco: No Hx Alcohol Use: Yes Alcohol type: hard liquor alcohol intake frequency: holidays/special occasions only Hx Substance Use: No substance use type: does not use Physical Exam Vital Signs Last Vital Signs Temp 36.6 C 10/17/24 07:35 Pulse 74 10/17/24 09:55 Resp 18 10/17/24 07:35 BP 136/83 10/17/24 07:35 Pulse Ox 97 10/17/24 07:35 O2 Del Method Room Air 10/17/24 07:35 ENMT Mallampati Class: II Cardiovascular Rate/Rhythm: regular rate Psychiatric Orientation: alert and oriented x 3 Testing Laboratory Results 10/17/24 06:13 10/17/24 06:13 PT 11.5 Seconds (9.0-12.0) 10/13/24 21:36 INR 1.1 (0.9-1.1) 10/13/24 21:36 Hemoglobin A1c 5.8 % (4.5-5.6) H 10/17/24 06:13 Urine Color Yellow 10/13/24 23:01 Urine Appearance Clear (Clear) 10/13/24 23:01 Urine pH 6.5 (4.5-7.5) 10/13/24 23:01 Ur Specific [place] 1.009 (1.000-1.030) 10/13/24 23:01 Urine Protein Negative (Negative) 10/13/24 23:01 Urine Glucose (UA) Negative (Negative) 10/13/24 23:01 Urine Ketones Negative (Negative) 10/13/24 23:01 Urine Nitrite Negative (Negative) 10/13/24 23:01 Ur Leukocyte Esterase Trace (Negative) H 10/13/24 23:01 Urine WBC (Auto) 0-5 /hpf (0-5) 10/13/24 23:01 Urine RBC (Auto) 0-2 /hpf (0-2) 10/13/24 23:01 U Hyaline Cast (Auto) 0-2 /lpf (0-2) 10/13/24 23:01 U Epithel Cells (Auto) 0-2 /hpf (0-2) 10/13/24 23:01 Urine Bacteria (Auto) None Seen (None Seen) 10/13/24 23:01
--- NOTE | 2024-10-17 11:52 | GI REPORT ---
[facility] Patient: ISMAEL MONTANA : 1935 Sex at : Female Age: 89 Years Procedure: Upper GI endoscopy Date: 10/17/2024 Attending Physician: Rayray Thomsa MD Referring MD: Kylah Herrera M.d. Indications: - Epigastric abdominal pain Medications: - Monitored Anesthesia Care Complications: - No immediate complications. Estimated Blood Loss: - Estimated blood loss: None. Procedure: - The EGD scope was introduced through the mouth and advanced to the second part of the duodenum. - The upper GI endoscopy was accomplished without difficulty. - The patient tolerated the procedure well. Findings: - The examined esophagus was normal. No evidence of esophagitis or Taylor's mucosa. - The Z-line was regular and was found 36 cm from the incisors. - A small, 2 cm hiatal hernia was present. - The exam of the stomach was otherwise normal. - There was no evidence of tumor, ulcer or gastritis. - A large diverticulum was found in the area of the papilla. Another smaller diverticulum was visualized in the second portion of the duodenum - The exam of the duodenum was otherwise normal. Impression: - Normal esophagus. - No evidence of esophagitis or Taylor's mucosa. - Z-line regular, 36 cm from the incisors. - Small, 2 cm hiatal hernia. - There was no evidence of tumor, ulcer or gastritis. - Duodenal diverticulum. - Another smaller diverticulum was visualized in the second portion of the duodenum - No specimens collected. Recommendation: - I anticipate no further need for intervention. - Observe patient's clinical course. Procedure Code(s): - 80305, Esophagogastroduodenoscopy, flexible, transoral; diagnostic, including collection of specimen(s) by brushing or washing, when performed (separate procedure) Diagnosis Code(s): - R10.13, Epigastric pain - K44.9, Diaphragmatic hernia without obstruction or gangrene - K57.10, Diverticulosis of small intestine without perforation or abscess without bleeding CPT(R) - 202 copyright [employer]. All Rights Reserved. The CPT codes, CCI edits and ICD codes generated are intended as suggestions and were generated based on input data. These codes are preliminary and upon gold charmer review may be revised to meet current compliance and payer requirements. The provider is responsible for the final determination of appropriate codes, and modifiers. Rayray Thomas M.D., MD This document has been electronically signed. Note Initiated:10/17/2024 Note Completed:10/17/2024 11:52 AM [email or web address]\Provation\Results\[email or web address]\[id number]
[2024-10-17 12:19] VITALS: RESP 16
[2024-10-17 12:22] VITALS: BP 135/83; O2SAT 96
[2024-10-17] MEDS: PROPOFOL IV EMULSION 10 MG/ML 20 ML VIAL IV ONE (12:45)
[2024-10-17] MEDS: LIDOCAINE 2% 2 ML VIAL/AMP(20MG/ML) INFIL ONE (12:46)
--- NOTE | 2024-10-17 13:32 | Discharge Summary ---
Discharge Summary Date of Service October 17, 2024 Principal Dx & Hospital Course #1 = Principal Diagnosis (1) Atrial fibrillation with rapid ventricular response: Plan Pt is an 89-year-old female with past medical history significant for hyperlipidemia, prediabetes, enlarged thoracic aorta, paroxysmal atrial fibrillation, tachybradycardia syndrome status post pacemaker, hypertension, Raynaud's phenomenon, gastroparesis, GERD, CKD stage III, right kidney stone, lumbar degenerative disc disease, senile osteoporosis, restless leg syndrome, chronic migraine, history of colonic diverticulitis who presented with palpitations and chest discomfort. Appears that around 4 PM p.m. WRISTER, while at a concert she noticed palpitations. She went home and rested but they were not going away so she came to the ER. Also complaining of pain in her lower chest and epigastric region. Has some epigastric tenderness. A-fib with rapid ventricular response Tachybradycardia syndrome Status post pacemaker placement Elevated troponin Patient presented with palpitations EKG noting A-fib with RVR on admission Troponins elevated but flat at 13.9 to 25.2 to 18, likely demand ischemia Received 2 doses of IV Lopressor 5 mg in the ER which did not improve HR and she was started on a Cardizem drip Echo was obtained which noted EF of 60 to 65% with small left ventricular cavity, moderate concentric left ventricular hypertrophy, normal wall motion, left atrium moderately dilated, mild mitral regurgitation, mild to moderate tricuspid regurgitation Cardiology was consulted, recommended/stated the following: -continue home metoprolol succinate 100mg daily -started on amiodarone, dose on discharge 200mg BID -s/p cardioversion on 10/16/24 with sinus rhythm -Failure Analysis Engineer Dr Boudreaux noted the following on the day of discharge: "TSH, LFTs normal this admission. EKG am of 10/17/24 interpreted independently: SR , atrial pacing at 84 bpm, QTc slightly longer today at 519 ms, however in setting of pacemaker acceptable at present Would avoid further medications that would prolong the QT in addition to the amiodarone Continue outpatient oral metoprolol succinate 100 mg daily Amiodarone 200 mg BID. Abdominal pain was present before the amiodarone was started. Doubt abdominal pain is due to a cardioembolic event as she has been on anticoagulation Continue Eliquis Stable from cardiac perspective. Stable for EGD. Unable to hold Eliquis given recent cardioversion." please ensure close follow-up with cardiology after discharge. Epigastric tenderness GERD Patient presenting with epigastric tenderness as well CT abdomen/pelvis noting "1. No acute abnormalities to explain abdominal pain. 2. Pneumobilia is seen which may represent incompetent sphincter of Oddi. 3. Diverticulosis without diverticulitis." GI was consulted, noted/stated the following: -s/p EGD on 10/17/24, unremarkable but noting small 2cm hiatal hernia -pt treated with IV ppi and pepcid, carafate while hospitalized as well as prn Bentyl -Bowel regimen for constipation- daily senakot and prn miralax GI noting on day of discharge, patient stable Patient discharged with as needed Bentyl, prescribed famotidine and advised to continue with her home pantoprazole. Also given a prescription for daily Senokot and as needed MiraLAX. Close PCP follow-up after discharge. Prediabetes hgba1c of 5.8 Encourage dietary changes and exercise PCP followup History of CKD stage III Stable, cr currently wnl Hypertension Pt was on metoprolol at home as well as terazosin Terazosin held during hospitalization Also held on discharge, pcp to resume as needed Notes For Next Care Provider Pt with cardioversion this admission. Started on amiodarone. Please ensure close followup with Cardiology after discharge. Medication Changes From Visit Per Cardiology: Amiodarone 200mg BID Continue home metoprolol succinate 100mg daily Continue Eliquis 2.5mg BID For abdominal pain: Bentyl 10mg po BID prn Famotidine 20mg daily continue pantoprazole 40mg daily Daily senokot and prn miralax for bowel regimen held home Terazosin- pcp followup to resume as able Admission HPI Per Admitting Provider 89-year-old female with past medical history significant for hyperlipidemia, prediabetes, enlarged thoracic aorta, paroxysmal atrial fibrillation, tachyb radycardia syndrome status post pacemaker, hypertension, Raynaud's phenomenon, gastroparesis, GERD, CKD stage III, right kidney stone, lumbar degenerative disc disease, senile osteoporosis, restless leg syndrome, chronic migraine, history of colonic diverticulitis presents with palpitations and chest discomfort. Seems around 4 PM p.m. when she was in concert she noticed palpitations. She went home and rested but they were not going away so she came to the ER. She also complaining of pain in her lower chest and epigastric region. Has some epigastric tenderness. Denies any nausea. No sweating. No shortness of breath. No headache or dizziness. No runny nose or sore throat. No fevers. Appetite is okay. Normal bowel and bladder movements. Past medical history. As mentioned above Past surgical history. EGD. EGD with endoscopic ultrasound. ERCP. Lithotripsy. Lumbar hemilaminectomy. Bilateral cataracts. Cholecystectomy. Social history. . No smoking. Alcohol very little. No drug use. Family history. Father had CA. Mother had hip fracture. Sister had CA. Brother had CA. Admission Exam Per Admitting Provider General- Not in distress Head- atraumatic Eyes- PERRL. ENT- oropharynx clear Neck- supple, no JVD. Lungs- clear to auscultation no wheezing or crackles Heart- irregular rhythm; tachycardia,no murmur, no gallop. Abdomen- normal bowel sounds, soft, nontender, no distension. Extremities- no pretibial edema, no erythema seen Neuro- alert, oriented ; PERRL, no facial palsy; no dysarthria; moves extremities Discharge Exam General: Alert, oriented. No acute distress Psych: Appropriate mood and affect HEENT: NC/AT CV: RRR Resp: Breath sounds clear bilaterally, no increased effort of breathing Abdomen: Soft, tender diffusely Extremities: No edema in lower extremities bilaterally. Updated Medication List Medication Instructions Recorded Confirmed Type apixaban 2.5 mg tablet (Eliquis) 2.5 mg PO BID 10/14/24 10/14/24 History metoprolol succinate 100 mg 100 mg PO DAILY 10/14/24 10/14/24 History tablet,extended release 24 hr pantoprazole 40 mg tablet,delayed 40 mg PO DAILY 10/14/24 10/14/24 History release rosuvastatin 5 mg tablet 5 mg PO DAILY 10/14/24 10/14/24 History terazosin 1 mg capsule 1 mg PO HS 10/14/24 10/14/24 History amiodarone 200 mg tablet 200 mg PO BIDM #60 tabs 10/17/24 Rx dicyclomine 10 mg capsule 10 mg PO BID PRN abdominal pain 10/17/24 Rx #30 caps famotidine 20 mg tablet 20 mg PO DAILY #30 tabs 10/17/24 Rx polyethylene glycol 3350 17 gram 17 g PO DAILY PRN constipation #30 10/17/24 Rx oral powder packet (Miralax) ea sennosides 8.6 mg tablet (Senokot) 8.6 mg PO QAM #30 tabs 10/17/24 Rx Hospital Stay Data Consultations 10/13/24 23:53 ED Decision to Admit Stat 10/14/24 08:00 Consult Cardiology Routine 10/15/24 10:54 Consult Gastroenterology Routine 10/15/24 12:44 Consult Anesthesiology Routine Procedures Performed Operation Date: 10/17/24 16:30 Actual Procedures p Esophagogastroduodenoscopy - Rayray Thomas MD Diagnostic Imagining Performed 10/15/24 08:45 CT abd pelvis wo con Urgent Chest X-Ray 10/13/24 20:14 Exam(s): XR CXR 1 VIEW EXAM: XR Chest, 1 View CLINICAL HISTORY: Reason for exam: Chest pain, nonspecific. TECHNIQUE: Frontal view of the chest. COMPARISON: 05/02/2024 FINDINGS: Lungs: There is mild bibasilar subsegmental atelectasis. The lungs are otherwise clear. Pleural space: Unremarkable. No pneumothorax. Heart: Unremarkable. No cardiomegaly. Mediastinum: Unremarkable. Normal mediastinal contour. Bones/joints: Unremarkable. No acute fracture. Tubes, lines and devices: There is a cardiac pacemaker. IMPRESSION: Mild bibasilar subsegmental atelectasis. Electronically signed by: Claude Bermeo MD 10/13/24 22:35 PM Abdomen/Pelvis CT 10/15/24 08:45 CT abd pelvis wo con CLINICAL HISTORY: abd. pain TECHNIQUE: Helical axial images of the abdomen and pelvis were obtained. Automated dose lowering techniques and/or adjustment according to patient size were utilized for this exam. This exam was performed without intravenous contrast. CT DOSE: 439.57 mGy.cm COMPARISON: Comparison is made to CT abdomen pelvis 09/18/2024 FINDINGS: Lower chest: Peripheral interstitial thickening is seen. Liver: Focal fatty changes are noted about the falciform ligament. Gallbladder and biliary tree: Patient is status post cholecystectomy. No intra- or extrahepatic biliary ductal dilation. Pneumobilia is incidentally noted. Pancreas: Unremarkable, no focal lesions. Spleen: Calcifications are noted in the spleen compatible with prior granulomatous disease. Adrenals: Unremarkable. Kidneys and ureters: Renal cysts are seen. Bladder: Unremarkable. Reproductive organs: Unremarkable. Bowel: Diverticulosis is seen without diverticulitis. The appendix is normal. Lymph nodes Retroperitoneal: Unremarkable. Pelvic: Unremarkable. Mesenteric: Unremarkable. Peritoneum: Normal. Vessels: Atherosclerotic calcifications are seen. Abdominal wall: Unremarkable. Bones: Degenerative changes in the visualized spine. IMPRESSION: 1. No acute abnormalities to explain abdominal pain. 2. Pneumobilia is seen which may represent incompetent sphincter of Oddi. 3. Diverticulosis without diverticulitis. ACT 112: Negative or not required by law. Electronically signed by: Petros Gordon M.D. 10/15/2024 9:45 AM Discharge Instructions Given to Patient (Per Discharging Provider) Alison Corey were admitted and treated for a rapid heart rate by cardiology. They are discharging you home with the new medication Amiodarone. Please take it as prescribed. Please continue with your home metoprolol as well as your home Eliquis. Please keep close follow-up with cardiology after discharge. You were also evaluated for your abdominal pain. You was seen by the director who performed the procedure did was grossly unremarkable. It did note that you have a small hiatal hernia. We are discharging you home with the medication famotidine to use in addition to the ER home pantoprazole. Please take the prescribed Bentyl as needed to help with any abdominal pain as needed. It was also noted that you had some constipation on imaging. Please continue with the prescribed bowel regimen of Senokot and as needed MiraLAX. Please hold your home terazosin which was held while hospitalized until follow- up with your primary care provider. Please keep close follow up with your primary care provider after discharge. Please do not hesitate to come back to the emergency room if your symptoms worsen or return. It was a pleasure taking care of you while you were here. Total Time Total Time Spent Total Time Spent (In Minutes): 60
[2024-10-17 14:21] VITALS: PULSE 81
== END 2024-10-17 14:39 | disposition home or self-care (01) | DRG 309 ==
LOC: ED 19:45 → EDINP 10-14 01:33 → SUATTDRO 10-14 01:33 → 2E 10-14 14:08